=== PATIENT | female | born 1985 | race Two or more races ===

== ENCOUNTER 2021-04-09 11:30 | Inpatient (IN) ==
--- NOTE | 2021-04-09 12:07 | Emergency Department Note ---
Impression & Plan Metastatic breast cancer, , Acute shoulder pain, Anemia, Acute hyponatremia ED Provider Note NAME: GALI FLOWER AGE: 35 SEX: F : 1985 ARRIVES VIA: Walk-In INFORMANT: Patient ED PROVIDER(S): Alex Romeo DO CHIEF COMPLAINT: neck pain HPI: Patient is a 35-year-old female who was diagnosed with metastatic breast cancer roughly 2 weeks ago. She has been seen evaluated in the ER and discharged with oxycodone and Zofran for the pain. She has been having worsening pain. She was recently found to be about 8 weeks. She denies any vaginal bleeding or vaginal discharge. The neck pain has been getting worse. She discussed with her information technology internship oncologist who referred her in for admission as well as CTs of the chest and belly for staging. She is having worsening right-sided neck pain radiating into the right arm which is believed to be from metastatic disease She denies any focal weakness but notes the pain is getting worse. She does want to terminate this so she can proceed with chemotherapy and treatment. ROS: See above HPI for pertinent positives & negatives. A total of 10 systems reviewed and were otherwise negative. PAST MEDICAL HISTORY:See Below PAST SURGICAL HISTORY:See Below FAMILY HISTORY:See Below SOCIAL HISTORY:See Below HOME MEDICATIONS:See Below ALLERGIES:See Below VITALS:See Below PHYSICAL EXAMINATION: GENERAL: Sitting up in bed, alert, well appearing, well nourished, no distress, non-toxic EYE EXAM: normal conjunctiva. PERRL and EOM's grossly intact. OROPHARYNX: no exudate, no erythema, lips, buccal mucosa, and tongue normal and mucous membranes are moist NECK: supple, no nuchal rigidity, no adenopathy, non-tender LUNGS: Clear to auscultation. Normal chest wall mechanics HEART: no murmurs, S1 normal and S2 normal ABDOMEN: abdomen soft, non-tender, normo-active bowel sounds, no masses, no rebound or guarding. BACK: Back is symmetrical on inspection and there is no deformity, no midline tenderness, no CVA tenderness. UPPER EXTREMITIES: Flexion-extension of the shoulders elbows wrist grasp and abduction of digits intact 5 out of 5 bilaterally LOWER EXTREMITIES: No pitting edema. NEURO EXAM: Normal sensorium, cranial nerves II-XII grossly intact, normal speech, no gross weakness of arms, no gross weakness of legs. No drift. Finger to nose intact. Gross sensation intact. MEDICAL DECISION MAKING: Patient is an unfortunate 35-year-old female with metastatic breast cancer to the bones causing neck pain referred in by her information technology internship oncologist for admission, abarca scans for staging as well as MRIs of the complete spine with and without and for port placement. Patient is currently and they have elected to terminate this so they can proceed with chemotherapy as she has an aggressive form of metastatic breast cancer at 35. IV was established blood work was obtained. Labs show no significant leukocytosis. Mild anemia 10. BMP along with LFTs bilirubin and lipase is unremarkable. Covid was negative. Mild hyperglycemia at 66. Patient was discussed with hospitalist prior to the results of the CTs as she will need additional MRIs port placement and further work-up by hematology oncology. She was given IV morphine while in the ER. She was comfortable with this plan and is in agreement with terminating the . Did perform the CTs based on this and will defer to STAFF ASSISTANT. Triage Nursing notes reviewed. Limited review of prior medical records performed Vital Signs: reviewed and remarkable for no significant abnormalities Differential diagnosis: Cervical strain, fracture, cervical disc disease, lymphadenitis, meningitis, tumor, arterial dissection, thyroiditis, parotitis, mastoiditis, neurologic, cardiovascular, as well as other pathologies. ER treatment provided: See below Diagnostics interpreted by me: ECG: none Cardiac Monitoring: An order was placed for continuous cardiac monitoring. The monitor shows a rate of 80 with sinus rhythm. Laboratory studies: As stated above and show below. Imaging studies: CTs of the chest abdomen pelvis pending radiology report Consultation(s): Discussed with Dr. Han who called and head to give report Discussed with hospitalist for further evaluation Procedures: none Critical Care: None Past Med/Surg History Social History Smoking Status: Never smoker Feels Safe at Home: Yes Allergies Allergies Allergy/AdvReac Type Severity Reaction Status Date / Time No Known Allergies Allergy Unverified 03/31/21 15:43 Home Meds Home Medications Medication Instructions Recorded Confirmed vitamin-ferrous sulfate 1 tab PO DAILY 03/31/21 03/31/21 27 mg iron-folic acid 0.8 mg tablet Previous Rx's Medication Instructions Recorded oxycodone 5 mg tablet 5 mg PO Q6H PRN #16 tab 03/31/21 Results & Data (ED) Vital Signs Vital Signs - 24 hr 04/09/21 11:33 04/09/21 13:53 Temperature 36.6 C Temperature Source Temporal Artery Scan Pulse Rate 84 Respiratory Rate 16 Blood Pressure 125/80 Blood Pressure Mean 95 Pulse Oximetry 100 96 Sepsis Recent Fever Within 48 Hours No Sepsis New/Unexplained Change in Mental Status No Sepsis Action Taken by Nursing No Action Required Laboratory Data Result diagrams: 04/09/21 12:53 04/09/21 12:53 Lab Results 04/09/21 04/09/21 04/09/21 Range/Units 12:53 12:53 13:09 WBC 7.60 (4.8-10.8) K/uL RBC 3.66 L (4.2-5.4) M/uL Hgb 10.2 L (12.0-16.0) g/dL Hct 30.3 L (37-47) % MCV 82.8 (80-100) fL MCH 27.9 (25-34) pg MCHC 33.7 (32-36) g/dL RDW Std Deviation 47.7 H (36.4-46.3) fL RDW Coeff of Abigail 15.9 H (11.5-14.5) % Plt Count 220 (130-400) K/uL MPV 9.4 (7.4-10.4) fL Immature Gran % (Auto) 0.3 % Neut % (Auto) 74.6 % Lymph % (Auto) 17.2 % [place]ug[place] % (Auto) 7.0 % Eos % (Auto) 0.8 % Baso % (Auto) 0.1 % Neut # (Auto) 5.67 (1.4-6.5) K/uL Lymph # (Auto) 1.31 (1.2-3.4) K/uL [place]ug[place] # (Auto) 0.53 (0.11-0.59) K/uL Eos # (Auto) 0.06 (0-0.5) K/uL Baso # (Auto) 0.01 (0-0.2) K/uL Immature Gran # (Auto) 0.02 (0.00-0.02) K/uL Sodium 134 L (136-145) mmol/L Potassium 3.6 (3.5-5.1) mmol/L Chloride 99 (98-107) mmol/L Carbon Dioxide 26 (21-32) mmol/L Anion Gap 9 (3-11) BUN 10 (6-23) mg/dl Creatinine 0.48 L (0.6-1.2) mg/dl Est Cr Clr Drug Dosing 131.2 ml/min Est GFR ( Amer) 145.2 ml/min Est GFR (Non-Af Amer) 125.3 ml/min BUN/Creatinine Ratio 20.8 H (10-20) Glucose 66 L (70-99(Fasting)) mg/dl Calcium 9.2 (8.5-10.1) mg/dl Total Bilirubin 0.3 (0.2-1.0) mg/dl AST 27 (13-39) U/L ALT 9 (7-52) U/L Alkaline Phosphatase 59 (34-104) U/L Total Protein 7.0 (6.0-8.3) gm/dl Albumin 3.9 (3.4-5.0) gm/dl Globulin 3.1 (2.5-4.0) gm/dl Albumin/Globulin Ratio 1.3 (0.9-2) Lipase 24 (11-82) U/L SARS-CoV-2, RNA, NAAT NEGATIVE (NEGATIVE) Administered Medications Discontinued Medications Sodium Chloride (Nss 1000ml) 1,000 mls @ 999 mls/hr IV .Q1H1M ONE Stop: 04/09/21 13:17 Last Admin: 04/09/21 13:00 Dose: 999 mls/hr Documented by: [id number] Ondansetron HCl 8 mg/ Dextrose 54 mls @ 216 mls/hr IV ONE STA Stop: 04/09/21 12:51 Last Admin: 04/09/21 12:45 Dose: Not Given Documented by: [id number] Ioversol (Optiray 320 100ml) 95 ml IV ONCE ONE Stop: 04/09/21 14:28 Last Admin: 04/09/21 14:27 Dose: 95 ml Documented by: [id number] Morphine Sulfate (Morphine Sulfate 4 Mg/Ml 1 Ml Carp\Vial) 4 mg IV NOW STA Stop: 04/09/21 12:18 Last Admin: 04/09/21 13:00 Dose: 4 mg Documented by: [id number] Ondansetron HCl (Ondansetron Inj 2 Mg/Ml 2 Ml Vial) 4 mg IV NOW STA Stop: 04/09/21 12:43 Last Admin: 04/09/21 13:00 Dose: 4 mg Documented by: [id number] Ondansetron HCl (Ondansetron Inj 2 Mg/Ml 2 Ml Vial) Confirm Administered Dose 4 mg .ROUTE .STK-MED ONE Stop: 04/09/21 12:44 Last Admin: 04/09/21 12:45 Dose: Not Given Documented by: [id number] Discharge Plan Visit Data Chief Complaint: Neck Injury/Pain Stated Complaint: SEVERE NECK PAIN ED Provider: Alex Romeo ED Midlevel Provider: Mehnaz Vuong Discharge Problem: Metastatic breast cancer, , Acute shoulder pain, Anemia, Acute hyponatremia Forms Stand Alone Forms: [facility] ice Prescriptions Prescriptions: No Action Multivit with Iron 27 mg iron- 0.8 mg Tablet 1 tab PO DAILY RF: 0 oxycodone 5 mg tablet 5 mg PO Q6H PRN (Reason: pain (scale score 7-10)) Qty: 16 RF: 0 Referrals Referrals: Pavel Curtis MD [Primary Care Provider] -
[2021-04-09] MEDS ORDERED: MoRPHine SULFATE 4 MG/ML 1 ML CARP\\VIAL IV STA (12:17)
[2021-04-09] MEDS ORDERED: SODIUM CHLORIDE 0.9% 1000ML 1,000 ML IV ONE (12:17)
--- NOTE | 2021-04-09 12:23 | Emergency Department Note ---
ED Visit Note Patient seen today by myself and then discussed with Dr. Romeo who evaluated her separately. Please see his note for assessment and plan. Resident Activity Tracking Resident Involvement: Resident Care Provided Care Provided: Adult ED
[2021-04-09] MEDS ORDERED: ondansetron HCL 8 MG in DEXTROSE 5% 50 ML IV STA (12:37)
[2021-04-09] MEDS ORDERED: ONDANSETRON INJ 2 MG/ML 2 ML VIAL IV STA (12:42)
[2021-04-09] MEDS ORDERED: ONDANSETRON INJ 2 MG/ML 2 ML VIAL ONE (12:43)
[2021-04-09 13:03] LABS: Basophils # (auto) 0.01 K/uL (0-0.2); Basophils % (auto) 0.1 %; Eosinophils # (auto) 0.06 K/uL (0-0.5); Eosinophils % (auto) 0.8 %; Hematocrit (blood only) 30.3 % (37-47); Hemoglobin 10.2 g/dL (12.0-16.0); Immature Granulocytes # (auto) 0.02 K/uL (0.00-0.02); Immature Granulocytes % (auto) 0.3 %; Lymphocytes # (auto) 1.31 K/uL (1.2-3.4); Lymphocytes % (auto) 17.2 %; Mean Corpuscular Hemoglobin 27.9 pg (25-34); Mean Corpuscular Hgb Conc 33.7 g/dL (32-36); Mean Corpuscular Volume 82.8 fL (80-100); Mean Platelet Volume 9.4 fL (7.4-10.4); Monocytes # (auto) 0.53 K/uL (0.11-0.59); Neutrophils # (auto) 5.67 K/uL (1.4-6.5); Neutrophils % (auto) 74.6 %; Platelet Count 220 K/uL (130-400); RDW Coefficient of Variation 15.9 % (11.5-14.5); RDW Standard Deviation 47.7 fL (36.4-46.3); Red Blood Count 3.66 M/uL (4.2-5.4)
[2021-04-09 13:27] LABS: Albumin Globulin Ratio 1.3 (0.9-2); Albumin Level 3.9 gm/dl (3.4-5.0); BUN Creatinine Ratio 20.8 (10-20); Bilirubin,Total 0.3 mg/dl (0.2-1.0); Calcium 9.2 mg/dl (8.5-10.1); Creatinine Clr Calc Pharmacy 131.2 ml/min; Est GFR (African American) 145.2 ml/min; Est GFR (Non-African American) 125.3 ml/min; Globulin 3.1 gm/dl (2.5-4.0); Potassium 3.6 mmol/L (3.5-5.1)
--- NOTE | 2021-04-09 14:04 | History & Physical Report ---
Date of Service April 09, 2021 Assessment & Plan (1) Metastatic breast cancer: Plan: Mrs. Burris is a 35 yo woman with a history of recently diagnosed triple positive metastatic breast cancer (with lytic lesions to the spine), currently 8 weeks , who is being admitted for intractable back pain. - Patient has decided to pursue an elective for medical necessity in order to undergo aggressive cancer treatment - OBGYN consult placed -- order placed for Transvaginal US --> if is not viable, D&C will be done inhouse. If is viable, patient will likely need transferred to another facility for this to be electively done - echocardiogram ordered for "pre-chemo" baseline - general surgery consult placed ---> Dr. Alaniz plans to place left sided tomorrow morning (04/10/21). NPO after midnight in anticipation of procedure. - await Chest and Abdomen/Pelvic CT scan results to assess for additional metastatic disease - MRI of entire spine ordered to assess metastatic burden and for spinal cord compression - oncology consult placed - Patient was scheduled to have a CT guided sternal bone biopsy as an outpatient on 04/12/21 --> I spoke with Radiology (Dr. Peralta) to see if this could be done today, however due to full schedule, it cannot be done until Monday04/12/21. While I acknowledge the results are likely to show primary breast cancer, the bone biopsy is being requested by [facility] (2) Acute midline thoracic back pain: Plan: - likely due to known lytic lesions of thoracic spine, visualized on Chest CT from 03/24/21 - pain regimen ordered: Tylenol 1000mg IV q8 and Toradol 15mg q6H prn for mild pain. Morphine 2mg Iv q4h for moderate pain. Dilaudid 0.25mg a4h IV prn for severe pain. Lidoderm patch ordered. Titrate regimen as needed. - MRI of cervical, thoracic and lumbar spine ordered to assess extent of metastatic disease - *contrast will be used; patient has already decided she will be terminating her current * (3) : Plan: - patient has decided to undergo elective termination in order to pursue aggressive cancer treatment - Transvaginal US ordered --> if is not viable, D&C will be done inhouse. If is viable, patient will likely need transferred to another facility for this to be electively done (although it is medically necessary) due to institutional policies - OBGYN consult placed Diet: Regular, NPO after midnight Dispo: Med/Surg Dvt ppx: SCDs - hold Lovenox until after chemoport placement Code: Full History of Present Illness Primary Care Provider: Pavel Curtis MD Mrs. Burris is a 35 yo woman who was unfortunately diagnosed with metastatic breast cancer earlier this month who is being admitted to [facility] for pain control (due to metastatic lesions to the spine). Of note, she is (8 weeks gestation, dated via LMP). Her breast cancer and lytic bony lesions were first detected on a Chest CT scan done on 03/24/21 (ordered initially to rule out a pulmonary embolism in the setting of tachycardia and chest pain). The R breast lump was further evaluated via diagnostic mammography and an ultrasound guided fine needle aspiration on 03/29/21. Pathology returned showing ER/AL/Her-2-codi positive ductal carcinoma. Fine needle aspiration of a sentinel node also returned positive for metastatic disease. She met with an oncologist at [facility] (Dr. Perez) on 04/07/21 - at which time treatment options were reviewed. Her chemotherapy will be carried out locally at [facility] under the guidance of Dr. Han - whom she had her first office visit with on 04/08/21. Due to worsening of her back/neck pain, patient presented to the [facility] ED for IV pain medications. She stated that her and her have decided to terminate the in order to pursue aggressive medical treatment of her underlying malignancy. Meds: Takes no chronic medications Allergies: No known drug allergies Social Hx: No etoh or tobacco use. She was immunized against covid 19 (two shots) and contracted the virus on 03/22/21. She and are from [place]. She speaks Farsi primarily, in addition to some Latvian - her is present at bedside and translates most complex conversational details. Family Hx: No known cancers In the ED, her vitals were stable. WBC was normal, Hgb low at 10.2. CMP returned normal. Covid 19 negative. UA ordered. Chest and abdominal/pelvic cat scans were ordered. She was given 4mg IV morphine and 4mg IV zofran. Allergies Allergy/AdvReac Type Severity Reaction Status Date / Time No Known Allergies Allergy Unverified 03/31/21 15:43 Home Medications Medication Instructions Recorded Confirmed Type oxycodone 5 mg tablet 5 mg PO Q6H PRN #16 tab 03/31/21 Rx vitamin-ferrous sulfate 1 tab PO DAILY 03/31/21 03/31/21 History 27 mg iron-folic acid 0.8 mg tablet Past Med/Surg History Social History Smoking Status: Never smoker Hx Alcohol Use: No Hx Substance Use: No Preferred Language: Latvian Communication Ability: Effective Stenciling Machine Tender Required: No Beliefs That Will Affect Care: None Current Living Situation: Spouse Other Information That Helps Us Care for You: No Feels Safe at Home: Yes Safety Concerns: Feels Safe At This Time Assistive Devices: None Review of Systems Musculoskeletal: + back pain Physical Exam Constitutional: WD/WN, vitals as above cooperative and comfortable; no acute distress Eyes: + anicteric sclerae ENMT: external ear and nose normal, oropharynx normal Neck: trachea midline Respiratory: normal respiratory effort, lungs clear to auscultation no cough Cardiovascular: RRR, no murmur, no edema Heart Sounds: normal S1 and normal S2 Extremities: no pedal edema Gastrointestinal (Abdomen): normal bowel sounds, soft, nontender, no hepatosplenomegaly Musculoskeletal: Head/Neck/Chest: normocephalic and head atraumatic Spine: + thoracic spinal tenderness Skin: no rashes, warm and dry Neurologic: moves all extremities Psychiatric: A+Ox3, euthymic affect Results & Data Results & Data ([facility]) Vital Signs (Past 12 Hours) Vital Signs Temp Pulse Resp BP Pulse Ox 04/09/21 13:53 96 04/09/21 11:33 36.6 C 84 16 125/80 100 Supervising Physician Co-Signing Physician Notes Patient seen and examined independently of PGY-2 Dr. Elkins. Agree with history, exam findings, assessment and plan of care as outlined. In brief, Padmaja is a 35 year old female with newly diagnosed triple positive breast cancer with lytic lesions to the spine, currently 8weeks of gestation admitted for intractable neck pain + ?radicular symptoms. is at the bedside. Reports that she has had some right sided neck pain for weeks now, but the pain that radiates in to the arm and hand started today. No weakness or paresthesias. Tender of the midline of the cervical spine and upper trap on the right. 5/5 strength of biceps, triceps. Light touch is in tact in the distributions of C3- T1. Tender over the midline thoracic spine. 1. Neck pain ?radicular pain. MRI cervical spine. In the meantime, pain control with Tylenol, Toradol, morphine, dilaudid, lido patch. 2. Thoracic spine pain secondary to lytic lesions. Of note, also has lytic lesions to the pelvis and femur. MRI of thoracic and lumbar spine ordered to assess metastatic burden. 3. Breast cancer, mets to bone and likely liver. Plans for port placement in the AM. Baseline TTE pending. CT guided sternal bone marrow biopsy scheduled for Monday. Appreciate oncology recommendations. 4. . Plans for elective termination. Ultrasound ordered to d etermine if fetus is viable. Appreciate OB-APARTMENT ASSISTANT MANAGER assistance with this. Dispo: pain control. Resident Activity Tracking Resident Involvement: Resident Care Provided Care Provided: [facility] Medicine (1) Weeks of gestation: 8 weeks Qualified Code(s): Z3A.08 - 8 weeks gestation of
[2021-04-09] MEDS ORDERED: OPTIRAY 320 100ml IV ONE (14:27)
--- NOTE | 2021-04-09 14:41 | CT Scan Report ---
CT SCAN OF THE ABDOMEN AND PELVIS WITH IV CONTRAST CLINICAL HISTORY: Metastatic breast cancer. Generalized abdominal pain. COMPARISON STUDY: Chest CT dated 03/24/2021. TECHNIQUE: Following the IV administration of 95 cc of Optiray 320, CT scan of the abdomen and pelvi s is performed from the lung bases to the proximal femora. Images are reviewed in the axial, sagittal , and coronal planes. IV contrast was administered without complication. A dose lowering technique wa s utilized adhering to the principles of ALARA. FINDINGS: Lung bases: The heart is normal in size and without pericardial effusion. There is dependent atelecta sis. A 6 cm groundglass nodule at the right lung base seen on image #29 is new from previous and like ly inflammatory. Marked dermal thickening is noted in the right breast. Liver: The contrast-enhanced liver is normal in size, contour, and attenuation. There is no intrahepa tic biliary ductal dilatation. The hepatic veins and portal veins are patent. An 11 mm indeterminate hypodensity is seen in the subcapsular right lobe on image #78. Gallbladder: Unremarkable. Spleen: Normal in size and attenuation. Pancreas: Unremarkable. Adrenal glands: Unremarkable. Kidneys: The contrast enhanced kidneys are normal in size and without hydronephrosis. The kidneys enh ance symmetrically. There is a 7 mm nonobstructing left renal calculus. Abdominal vasculature: The abdominal aorta is normal in course and caliber. Bowel: There is rectosigmoid fecal retention and moderate constipation. No bowel obstruction is seen. The appendix is well-visualized and normal. Peritoneum: There is no intraperitoneal free air or abdominal ascites. Lymphadenopathy: None. Pelvic viscera: The bladder is distended and otherwise normal in appearance. The uterus is enlarged a nd heterogeneous noting an intrauterine gestation. No adnexal lesion is seen. An involuting follicle is noted in the right ovary. Trace free fluid is seen in the cul-de-sac. Skeletal structures: There is evidence of extensive/diffuse osteolytic metastatic disease. Lesions ar e seen throughout the spine and bony pelvis. There are small bilateral rib lesions, as well as tiny l esions in the proximal femora. A electronics parts sales representative lesion in the right sacral ala on image #256 measures 2.6 cm, and a lesion within the right aspect of L4 measures 2.6 cm. There is no CT evidence of epidu ral extension of tumor. There is minimal pathologic superior endplate compression fracture of L4. IMPRESSION: 1. No acute infectious or inflammatory findings are seen in the abdomen or pelvis. 2. There is evidence of diffuse osteolytic metastatic disease as detailed above noting a minimal path ologic superior endplate compression fracture of L4. 3. Rectosigmoid fecal retention and moderate constipation. 4. Significant dermal thickening is noted in the right breast. 5. Left-sided nephrolithiasis. 6. The uterus is enlarged and heterogeneous noting an intrauterine gestation. 7. Trace nonspecific free fluid is seen in the cul-de-sac. 8. An 11 mm indeterminant hypodensity in the posterior right lobe of the liver likely represents a he mangioma but is incompletely characterized. 9. Additional findings as above. ACT 112: Negative or not required by law. Electronically signed by: Leopoldo Regalado M.D. 04/09/2021 2:40 PM
--- NOTE | 2021-04-09 14:47 | CT Scan Report ---
CT OF THE CHEST WITH IV CONTRAST CLINICAL HISTORY: worsening pain metastatic breast cancer COMPARISON STUDY: Chest CT March 24, 2021. TECHNIQUE: Following IV administration of 95 mL of Optiray, helical axial images of the chest were o btained. Sagittal and coronal reconstructions were viewed as well as maximal intensity projections o n an independent 3-D workstation. Automated exposure control was utilized for the study. A dose low ering technique was utilized adhering to the principles of ALARA. CT DOSE: 464.83 mGy.cm FINDINGS: Note is again made of asymmetric right breast skin thickening. There is a 2.2 cm irregular enhancing mass which contains a biopsy clip within the upper inner quadrant of the right breast. Sev eral prominent right axillary lymph nodes are noted. A biopsy clip within right axilla is present. Si ze of the heart is normal. There is no pericardial effusion. No enlarged hilar or mediastinal lymph n odes are present. Central airways are patent. There is no consolidation to suggest pneumonia. No pneu mothorax or pleural effusion is present. A 5 mm ground glass right lower lobe nodule on image 228 of [address] of March 24, 2021. Numerous lytic skeletal metastases are again noted. These bocanegra ve slightly progressed since CT of March 24, 2021. A T8 pathologic fracture is again noted. Althoug h suboptimally assessed by CT, there is suggestion of slight epidural extension at the T10 level. The re is no evidence for severe central canal stenosis. Mild to moderate multilevel neural foraminal romeo nosis due to metastases is present but this is also suboptimally assessed by CT. Abdomen and pelvis w ill be reported separately. An indeterminate 1 cm segment 7 hepatic lesion is present. IMPRESSION: 1. Extensive skeletal metastatic disease with slight progression since CT of March 24, 2021. Redemo nstration of a T8 pathologic fracture and slight epidural extension at the T10 level. No severe centr al canal stenosis by CT. Mild to moderate multilevel neural foraminal stenosis due to skeletal lesion s. 2. Right breast mass with asymmetric right breast skin thickening consistent with primary malignancy. 3. New 5 mm groundglass right lower lobe nodule and a 1 cm right hepatic lobe lesion. These are indet erminate. ACT 112: Negative or not required by law. Electronically signed by: Kurtis Peralta M.D. 04/09/2021 2:46 PM
[2021-04-09] MEDS ORDERED: MoRPHine SULFATE 2 MG/ML CARP IV STA (15:06)
[2021-04-09] MEDS ORDERED: MoRPHine SULFATE 4 MG/ML 1 ML CARP\\VIAL ONE (15:07)
[2021-04-09] MEDS ORDERED: ACETAMINOPHEN 1,000 MG/100 ML VIAL IV PRN (15:57)
[2021-04-09] MEDS ORDERED: ONDANSETRON INJ 2 MG/ML 2 ML VIAL IV PRN (15:57)
[2021-04-09] MEDS ORDERED: MELATONIN 3 MG TAB PO PRN (15:57)
--- NOTE | 2021-04-09 16:14 | XCELERA ---
[id number]
--- NOTE | 2021-04-09 16:35 | Surgery Consultation ---
Date of Consultation April 09, 2021 Assessment & Plan (1) Metastatic breast cancer: Mrs. Burris is a 35 yo woman who was unfortunately diagnosed with metastatic breast cancer earlier this month who is being admitted to [facility] for pain control (due to metastatic lesions to the spine). Of note, she is (8 weeks gestation, dated via LMP). Her breast cancer and lytic bony lesions were first detected on a Chest CT scan done on 03/24/21 (ordered initially to rule out a pulmonary embolism in the setting of tachycardia and chest pain). The R breast lump was further evaluated via diagnostic mammography and an ultrasound guided fine needle aspiration on 03/29/21. Pathology returned showing ER/CT/Her-2-codi positive ductal carcinoma. Fine needle aspiration of a sentinel node also returned positive for metastatic disease. She met with an oncologist at [facility] (Dr. Perez) on 04/07/21 - at which time treatment options were reviewed. Her chemotherapy will be carried out locally at [facility] under the guidance of Dr. Han - whom she had her first office visit with on 04/08/21. Due to worsening of her back/neck pain, patient presented to the [facility] ED for IV pain medications. She stated that her and her have decided to terminate the in order to pursue aggressive medical treatment of her underlying malignancy. plan: pt will have port insertion on sedation + local anesthesia tomorrow, D/W benefits, risks and alternatives of the surgery, the risks - infection, bleeding, injury other organs, blood clot, dysfunction catheter, pt and her understood, they agree with the surgery, pt signed informed consent, I answered all questions, NPO after MN, History of Present Illness Reason for Consultation: port insertion Requesting Physician: Allie Cardenas DO Attending Physician: Allie Cardenas DO History of Present Illness History of Present Illness Primary Care Provider: Pavel Curtis MD CC: need port insertion Mrs. Burris is a 35 yo woman who was unfortunately diagnosed with metastatic breast cancer earlier this month who is being admitted to [facility] for pain control (due to metastatic lesions to the spine). Of note, she is (8 weeks gestation, dated via LMP). Her breast cancer and lytic bony lesions were first detected on a Chest CT scan done on 03/24/21 (ordered initially to rule out a pulmonary embolism in the setting of tachycardia and chest pain). The R breast lump was further evaluated via diagnostic mammography and an ultrasound guided fine needle aspiration on 03/29/21. Pathology returned showing ER/CT/Her-2-codi positive ductal carcinoma. Fine needle aspiration of a sentinel node also returned positive for metastatic disease. She met with an oncologist at [facility] (Dr. Perez) on 04/07/21 - at which time treatment options were reviewed. Her chemotherapy will be carried out locally at [facility] under the guidance of Dr. Han - whom she had her first office visit with on 04/08/21. Due to worsening of her back/neck pain, patient presented to the [facility] ED for IV pain medications. She stated that her and her have decided to terminate the in order to pursue aggressive medical treatment of her underlying malignancy. Social Hx: No etoh or tobacco use. She was immunized against covid 19 (two shots) and contracted the virus on 03/22/21. She and are from [place]. She speaks Farsi primarily, in addition to some Cymro - her is present at bedside and translates most complex conversational details. Family Hx: No known cancers In the ED, her vitals were stable. WBC was normal, Hgb low at 10.2. CMP returned normal. Covid 19 negative. UA ordered. Chest and abdominal/pelvic cat scans were ordered. She was given 4mg IV morphine and 4mg IV zofran. I ( Jose Luis Alaniz MD ) got a call for port insertion for pt chemotherapy her metastatic breast cancer, I reviewed pt's H/P, labs and CT scan with pt and her , Allergies Allergy/AdvReac Type Severity Reaction Status Date / Time No Known Allergies Allergy Unverified 03/31/21 15:43 Home Medications Medication Instructions Recorded Confirmed Type oxycodone 5 mg tablet 5 mg PO Q6H PRN #16 tab 03/31/21 Rx vitamin-ferrous sulfate 1 tab PO DAILY 03/31/21 2 History 27 mg iron-folic acid 0.8 mg tablet Past Med/Surg History Social History Smoking Status: Never smoker Feels Safe at Home: Yes Review of Systems Musculoskeletal: + back pain Allergies Allergy/AdvReac Type Severity Reaction Status Date / Time No Known Allergies Allergy Unverified 03/31/21 15:43 Home Medications Medication Instructions Recorded Confirmed Type oxycodone 5 mg tablet 5 mg PO Q6H PRN #16 tab 03/31/21 Rx vitamin-ferrous sulfate 1 tab PO DAILY 03/31/21 03/31/21 History 27 mg iron-folic acid 0.8 mg tablet Patient History Social History Smoking Status: Never smoker Feels Safe at Home: Yes Physical Exam Constitutional: WD/WN, vitals as above Eyes: PERRL, conjunctivae normal, anicteric sclerae Neck: trachea midline, no thyromegaly Respiratory: normal respiratory effort, lungs clear to auscultation Cardiovascular: RRR, no murmur, no edema Gastrointestinal (Abdomen): soft, NT, Nd BS + Musculoskeletal: Spine: + cervical spinal tenderness Neurologic: patellar DTR's 2+ bilat, sensation intact Psychiatric: A+Ox3, euthymic affect Results & Data ([facility]) Vital Signs (Past 12 Hours) Vital Signs Temp Pulse Resp BP Pulse Ox 04/09/21 13:53 96 04/09/21 11:33 36.6 C 84 16 125/80 100 Laboratory Results History of Present Illness Primary Care Provider: Pavel Curtis MD Mrs. Burris is a 35 yo woman who was unfortunately diagnosed with metastatic breast cancer earlier this month who is being admitted to [facility] for pain control (due to metastatic lesions to the spine). Of note, she is (8 weeks gestation, dated via LMP). Her breast cancer and lytic bony lesions were first detected on a Chest CT scan done on 03/24/21 (ordered initially to rule out a pulmonary embolism in the setting of tachycardia and chest pain). The R breast lump was further evaluated via diagnostic mammography and an ultrasound guided fine needle aspiration on 03/29/21. Pathology returned showing ER/CT/Her-2-codi positive ductal carcinoma. Fine needle aspiration of a sentinel node also returned positive for metastatic disease. She met with an oncologist at [facility] (Dr. Perez) on 04/07/21 - at which time treatment options were reviewed. Her chemotherapy will be carried out locally at [facility] under the guidance of Dr. Han - whom she had her first office visit with on 04/08/21. Due to worsening of her back/neck pain, patient presented to the [facility] ED for IV pain medications. She stated that her and her have decided to terminate the in order to pursue aggressive medical treatment of her underlying malignancy. Social Hx: No etoh or tobacco use. She was immunized against covid 19 (two shots) and contracted the virus on 03/22/21. She and are from [place]. She speaks Farsi primarily, in addition to some Cymro - her is present at bedside and translates most complex conversational details. Family Hx: No known cancers In the ED, her vitals were stable. WBC was normal, Hgb low at 10.2. CMP returned normal. Covid 19 negative. UA ordered. Chest and abdominal/pelvic cat scans were ordered. She was given 4mg IV morphine and 4mg IV zofran.Allergies Allergy/AdvReac Type Severity Reaction Status Date / Time No Known Allergies Allergy Unverified 03/31/21 15:43 Home Medications Medication Instructions Recorded Confirmed Type oxycodone 5 mg tablet 5 mg PO Q6H PRN #16 tab 03/31/21 Rx vitamin-ferrous sulfate 1 tab PO DAILY 03/31/21 2 History 27 mg iron-folic acid 0.8 mg tablet Past Med/Surg History Social History Smoking Status: Never smoker Feels Safe at Home: Yes Review of Systems Musculoskeletal: + back pain Diagnostic Findings CT SCAN OF THE ABDOMEN AND PELVIS WITH IV CONTRAST CLINICAL HISTORY: Metastatic breast cancer. Generalized abdominal pain. COMPARISON STUDY: Chest CT dated 03/24/2021. TECHNIQUE: Following the IV administration of 95 cc of Optiray 320, CT scan of the abdomen and pelvis is performed from the lung bases to the proximal femora. Images are reviewed in the axial, sagittal, and coronal planes. IV contrast was administered without complication. A dose lowering technique was utilized adhering to the principles of ALARA. FINDINGS: Lung bases: The heart is normal in size and without pericardial effusion. There is dependent atelectasis. A 6 cm groundglass nodule at the right lung base seen on image #29 is new from previous and likely inflammatory. Marked dermal thickening is noted in the right breast. Liver: The contrast-enhanced liver is normal in size, contour, and attenuation. There is no intrahepatic biliary ductal dilatation. The hepatic veins and portal veins are patent. An 11 mm indeterminate hypodensity is seen in the subcapsular right lobe on image #78. Gallbladder: Unremarkable. Spleen: Normal in size and attenuation. Pancreas: Unremarkable. Adrenal glands: Unremarkable. Kidneys: The contrast enhanced kidneys are normal in size and without hydronephrosis. The kidneys enhance symmetrically. There is a 7 mm nonobstructing left renal calculus. Abdominal vasculature: The abdominal aorta is normal in course and caliber. Bowel: There is rectosigmoid fecal retention and moderate constipation. No bowel obstruction is seen. The appendix is well-visualized and normal. Peritoneum: There is no intraperitoneal free air or abdominal ascites. Lymphadenopathy: None. Pelvic viscera: The bladder is distended and otherwise normal in appearance. The uterus is enlarged and heterogeneous noting an intrauterine gestation. No adnexal lesion is seen. An involuting follicle is noted in the right ovary. Trace free fluid is seen in the cul-de-sac. Skeletal structures: There is evidence of extensive/diffuse osteolytic metastatic disease. Lesions are seen throughout the spine and bony pelvis. There are small bilateral rib lesions, as well as tiny lesions in the proximal femora. A insurance service representative lesion in the right sacral ala on image #256 measures 2.6 cm, and a lesion within the right aspect of L4 measures 2.6 cm. There is no CT evidence of epidural extension of tumor. There is minimal pathologic superior endplate compression fracture of L4. IMPRESSION: 1. No acute infectious or inflammatory findings are seen in the abdomen or pelvis. 2. There is evidence of diffuse osteolytic metastatic disease as detailed above noting a minimal pathologic superior endplate compression fracture of L4. 3. Rectosigmoid fecal retention and moderate constipation. 4. Significant dermal thickening is noted in the right breast. 5. Left-sided nephrolithiasis.
[2021-04-09] MEDS: MoRPHine SULFATE 2 MG/ML CARP IV PRN ×3 (17:17→20:57)
[2021-04-09] MEDS: LIDOCAINE 5% 1 PATCH TD SCH (17:18)
[2021-04-09] MEDS: KETOROLAC TROMETHAMINE 15 MG/ML VIAL IV PRN (17:18)
[2021-04-09] MEDS: SODIUM CHLORIDE 0.9% 1000ML 1,000 ML IV SCH (17:18)
[2021-04-09] MEDS: HYDROmorphone INJ 0.5 MG/0.5 ML SYR IV PRN (20:27)
[2021-04-09] MEDS: CYCLOBENZAPRINE HCL 10 MG TAB PO SCH (20:27)
[2021-04-09 21:44] LABS: Appearance Urine Cloudy (Clear); Bacteria Urine Automated 1+ (Negative); Bilirubin Urine Negative (Negative); Blood Urine Negative (Negative); Color Urine Yellow; Epithelial Cell Urine Auto >30 /lpf (0-5); Glucose Urine UA Negative (Negative); Ketones Urine Negative (Negative); Leukocyte Esterase Urine Negative (Negative); Nitrite Urine Negative (Negative); Protein Urine Negative (Negative); RBC Urine Automated 0-4 /hpf (0-4); Specific Gravity Urine > 1.045 (1.000-1.030); Urobilinogen Urine Negative (Negative)
--- NOTE | 2021-04-09 22:54 | Ultrasound Report ---
US OB transvaginal CLINICAL HISTORY: breast CA with mets - viability/dating Technique: Real-time sonographic images of the pelvic contents were obtained with transabdominal and transvaginal technique. COMPARISON: None available at the time of this dictation. Findings: A single intrauterine is identified. Yolk sac measures 0.35 cm, crown rump length measures 1.91 cm corresponding to estimated gestational age of 8 weeks 3 days. heart rate measures 172 bpm. There is a hypoechoic area adjacent to the gestational sac measuring 2.1 x 1.1 x 1.8 cm, compatible with subchorionic hemorrhage which is small in size. Nabothian cysts are seen. The right ovary measures 2.2 x 5.0 x 1.4 cm. The left ovary measures 2.3 x 1.3 x 1.5 cm. There is a l ikely corpus luteum on the right. Impression: Single live intrauterine . Based on crown-rump length, the estimated sonographi c gestational age is 8 weeks 3 days. Small subchorionic hemorrhage is noted. ACT 112: Negative or not required by law. Electronically signed by: Epi Demarco M.D. 04/09/2021 10:53 PM
[2021-04-10] MEDS: SODIUM CHLORIDE 0.9% 1000ML 1,000 ML IV SCH ×2 (05:15→18:16)
[2021-04-10] MEDS: MoRPHine SULFATE 2 MG/ML CARP IV PRN (05:18)
[2021-04-10 06:10] LABS: Basophils # (auto) 0.01 K/uL (0-0.2); Basophils % (auto) 0.2 %; Eosinophils % (auto) 1.6 %; Hemoglobin 9.7 g/dL (12.0-16.0); Immature Granulocytes # (auto) 0.03 K/uL (0.00-0.02); Immature Granulocytes % (auto) 0.5 %; Lymphocytes # (auto) 1.42 K/uL (1.2-3.4); Lymphocytes % (auto) 22.8 %; Mean Corpuscular Hemoglobin 27.1 pg (25-34); Mean Corpuscular Hgb Conc 32.3 g/dL (32-36); Mean Corpuscular Volume 83.8 fL (80-100); Mean Platelet Volume 9.5 fL (7.4-10.4); Monocytes # (auto) 0.63 K/uL (0.11-0.59); Monocytes % (auto) 10.1 %; Neutrophils # (auto) 4.05 K/uL (1.4-6.5); Neutrophils % (auto) 64.8 %; Platelet Count 243 K/uL (130-400); RDW Coefficient of Variation 16.2 % (11.5-14.5); RDW Standard Deviation 49.4 fL (36.4-46.3); Red Blood Count 3.58 M/uL (4.2-5.4); White Blood Count 6.24 K/uL (4.8-10.8)
[2021-04-10] MEDS: HYDROmorphone INJ 0.5 MG/0.5 ML SYR IV PRN ×2 (06:29→16:29)
[2021-04-10 06:39] LABS: Anion Gap 5 (3-11); BUN Creatinine Ratio 24.4 (10-20); Blood Urea Nitrogen 10 mg/dl (6-23); Calcium 9.4 mg/dl (8.5-10.1); Carbon Dioxide 27 mmol/L (21-32); Chloride 104 mmol/L (98-107); Creatinine Clr Calc Pharmacy 153.6 ml/min; Est GFR (African American) > 150.0 ml/min; Glucose 70 mg/dl (70-99(Fasting)); Potassium 4.1 mmol/L (3.5-5.1); Sodium 136 mmol/L (136-145)
--- NOTE | 2021-04-10 06:46 | Hospitalist Progress Note ---
Date of Service April 10, 2021 Assessment & Plan (1) Metastatic breast cancer: Plan: Patient is a 35 year old female at 8 weeks with history of recently diagnosed triple positive metastatic breast cancer with lytic lesions to spine and hip admitted for intractable back and neck pain. Since admission patients patient has migrated primarily to her lumbar spine in addition to her L hip. Despite a multitude of pain management medications she has had difficulty finding comfort regardless of position. Metastatic Breast Cancer with Lytic Lesions -Patient has decided to pursue elective for medical necessity in order to undergo aggressive cancer treatment. -She at this time understands that many of the treatment options in regards to both control of her pain, treatment of her cancer, staging of her disease may be harmful to her unborn child and accepts the risks involved as she is planning on elective . -Pain management has been difficult with PRN medications of Tylenol, Toradol, Morphine, Dilaudid, and Lidocaine patches -Trialed Fentanyl patch 12mcg today for roughly 3 hours at which point patient noted her hip pain was too excruciating and was hopeful for something else -Started on Dilaudid PAID SEARCH MANAGER at 0.5mg/hr in addition to 0.25mg pushes q15min -- Per nursing patient has finally noted some relief of her pain -Morphine and Dilaudid pushes held at this time due to PAID SEARCH MANAGER -Unfortunately patient has been unable have the MRI of her Cervical, Thoracic, and Lumbar spine -If patient continues to be unable to tolerate MRI, would consider CT of the cervical spine to ensure no cord compression -Pre-chemotherapy Echocardiogram ordered with EF 60-65% -Case has been discussed extensively with OBGYN and Oncology -Oncology following, recommending at this time palliative radiation therapy (current plan for 04/12/21) to help with pain of the hip -Discussed chemotherapy which at this time would likely be deferred until after the termination of the . -Current plans for bone biopsy on 04/12/21 -Transvaginal US notable for single live intrauterine estimated gestational age 8 weeks 3 days in addition to subchorionic hemorrhage. -Patient noting that she would like to pursue elective . -She would want to pursue therapeutic treatment for both her cancer and her pain control, knowing any teratogenic effects it would have on the fetus at this time as she is planning on elective termination. -OBGYN Dr. Yanez at [facility] has been following patients case as well who feels that as this is a medically necessary situation, would be able to assist the pa tient in regards to elective . She plans on reaching out to the patient directly in regards to possible phone/telemedicine appointment as she would have difficulty with transport to [facility] with her pain as is. -If able to manage patient's pain adequately on an outpatient regiment, patient would likely benefit from evaluation there for termination of the . -At this time our OBGYN provider has discussed this case with several of our hospital administrators and at this time we would likely be unable to provide the service of termination of the at our facility. In the event that the patient has a miscarriage or threatened , our OBGYN team would be able to reevaluate and treat as indicated at that time. Diet: Regular Dispo: Med/Surg Dvt ppx: SCDs - Resume Lovenox in the AM Code: Full (2) Acute midline thoracic back pain: (3) : Admission and Anticipated Discharge Date Admission Date: April 09, 2021 Supervising Physician Co-Signing Physician Notes Patient seen and examined with PGY-3 Dr. Granados. Agree with history, exam findings, assessment and plan of care as outlined. In brief, Padmaja is a 35 year old female with newly diagnosed triple positive breast cancer with lytic lesions to the spine, currently 8weeks of gestation admitted for intractable neck pain + ?radicular symptoms. is at the bedside. Had port placed with morning with Dr. Alaniz. Patient has spoke with both Dr. Carter and Dr. Fernandes. There are significant institutional barriers to having termination done here. PCP, Dr. Curtis, has contacted Dr. Yanez at [place] to discuss case and assist with care. Continues to have pain in the spine (thoracic and lower back) with movement. Patient and are aware that mediations like Toradol can be teratogenic and other medications like the opioids are be harmful to a fetus. In particular, discussed possibility of fentanyl patch for better overall pain control. Unfortunately, attempted fentanyl patch for several hours with PRN dilaudid and pain was not at all controlled. Long discussion with patient and her . They are willing to try a PAID SEARCH MANAGER to better pain control. They understand the risks for PAID SEARCH MANAGER including respiratory depression and harm to fetus. They are understandably concerned regarding the severe pain Padmaja is experiencing even with minimal movement. They are also concerned about the inability of our facility to provide termination as they feel this is delaying her ability to start chemotherapy and radiation. 1. Bony pain secondary to bony mets. Attempted trial of fentanyl without significant improvement. After a long discuss regarding risks and benefits of dilaudid PAID SEARCH MANAGER, they are agreeable to start dialudid PAID SEARCH MANAGER. They are aware fo the risks of respiratory depression as well as monitoring parameters for the PAID SEARCH MANAGER. Augment with Tylenol, Toradol. Discussed possibility of radiation to bony mets with oncology, Dr. Han. She has already reached out to Dr. Coats of radiation oncology; set up for radiation oncology on Monday to help with pain. Discussed with patient and that at this time, chemo would do little to help with pain and may put her at increased risk for complication or a difficult recovery following any planned procedure for termination. 2. Breast cancer, mets to bone and likely liver. Port placed today by Dr. Alaniz. Baseline TTE completed. CT guided sternal bone marrow biopsy scheduled for Monday. Appears that her cancer is quite aggressive given that there was an increasing in bony lytic lesions on this most recent chest CT when compared to the initial CT done 2 weeks prior. Appreciate continued oncology recommendations. 3. . Plans for termination in order to focus on breast cancer treatment. Appreciate Dr. Carter and Dr. Vicente communication with the patient and recommendations for next steps. Spoke with Dr. Fernandes. There are plans for a meeting of leadership at our institution to discuss the patients case. Patients PCP has also been in touch with Dr. Yanez in [place]. However, logistics will be quite challenging and do not feel that it is in the patients best interest to transfer to another facility 2 hours away with the amount of pain she is experiencing. Transfer with a PAID SEARCH MANAGER is less than ideal. However, if she experiences bleeding/ demise prior to Monday, will discuss with our OB- CONSTRUCTION TECHNICIAN colleagues for possible intervention here. Dispo: pain control. Subjective Patient evaluated multiple times throughout the day for discussion of her pain. Patient notes that despite the therapies she has been receiving for pain control, her pain continues to remain intolerable with any sense of movement. She notes she has been unable to have the MRI's completed due to the inability to stay in the machine or laying down in a certain position for much time without extreme pain. She denies any fever, chills, SOB. She notes fortunately that her neck pain has improved, but both her lumbar and her L hip pain are excruciating. She states it feels as though there is a "monster" that comes out everytime she goes to move. Review of Systems Review of Systems: All systems reviewed & are unremarkable except as noted in Subjective Physical Exam Constitutional: + acute distress Respiratory: normal respiratory effort, lungs clear to auscultation Cardiovascular: RRR, no murmur, no edema Musculoskeletal: Head/Neck/Chest: normocephalic and head atraumatic Significant tenderness to palpation of the lumbar spine, low back paraspinals, and the lateral iliac crests b/l, worse on the L than R Results & Data Results & Data ([facility]) Vital Signs (Past 12 Hours) Vital Signs Temp Pulse Resp BP Pulse Ox 04/09/21 22:00 36.6 C 76 18 100/66 98 Resident Activity Tracking Resident Involvement: Resident Care Provided Care Provided: Adult [facility] Medicine (1) Weeks of gestation: 8 weeks Qualified Code(s): Z3A.08 - 8 weeks gestation of
--- NOTE | 2021-04-10 07:11 | Anesthesiology Consultation ---
Date of Service April 10, 2021 Assessment & Plan (1) Encounter for pre-operative examination: Chart Review Chart Review: Acceptable Risk for Surgery and Patient NOT seen in Pre Admission Testing Consults Requested none History Surgery Operation Date: 04/10/21 07:30 Proposed Procedures p Placement of Left A-Port Catheter - Jose Luis Alaniz MD Height/Weight Height: 5 ft 7.2 in Weight: 51.8 kg Allergies Allergy/AdvReac Type Severity Reaction Status Date / Time No Known Allergies Allergy Unverified 03/31/21 15:43 Medications Home Medications Medication Instructions Recorded Confirmed Last Taken oxycodone 5 mg tablet 5 mg PO Q6H PRN #16 tab 03/31/21 Unknown vitamin-ferrous sulfate 1 tab PO DAILY 03/31/21 03/31/21 03/31/21 27 mg iron-folic acid 0.8 mg tablet Active Medications Generic Name Dose Route Start Last Admin Trade Name Freq PRN Reason Stop Dose Admin Cyclobenzaprine HCl 10 mg 04/09/21 21:00 04/09/21 20:27 Cyclobenzaprine Hcl 10 Mg Tab PO 05/09/21 20:59 10 mg TID KRISTY Administration Hydromorphone HCl 0.25 mg 04/09/21 15:57 04/10/21 06:29 Hydromorphone Inj 0.5 Mg/0.5 Ml Syr IV 04/23/21 15:56 0.25 mg Q6H PRN Administration Severe Pain (7-10) Sodium Chloride 1,000 mls @ 95 mls/hr 04/09/21 16:30 04/10/21 06:30 Nss 1000ml IV 04/11/21 00:04 0 mls/hr .[id number] KRISTY Infusion Ketorolac Tromethamine 15 mg 04/09/21 15:57 04/09/21 17:18 Ketorolac Tromethamine 15 Mg/Ml Vial IV 04/14/21 15:56 15 mg Q6H PRN Administration Mild Pain Lidocaine 1 patch 04/09/21 16:30 04/09/21 17:18 Lidocaine 5% 1 Patch TD 05/09/21 16:29 1 patch QAM KRISTY Administration Miscellaneous 1 ea 04/09/21 23:00 04/09/21 22:00 Remove Lidoderm Patch N/A 05/09/21 22:59 1 ea DAILY@2100 KRISTY Administration Morphine Sulfate 2 mg 04/09/21 15:57 04/10/21 05:18 Morphine Sulfate 2 Mg/Ml Carp IV 04/23/21 15:56 2 mg Q30M PRN Administration Moderate Pain Social History Smoking Status: Never smoker Hx Alcohol Use: No Hx Substance Use: No Physical Exam Vital Signs Last Vital Signs Temp 36.6 C 04/09/21 22:00 Pulse 76 04/09/21 22:00 Resp 18 04/09/21 22:00 BP 100/66 04/09/21 22:00 Pulse Ox 98 04/09/21 22:00 Testing Laboratory Results 04/10/21 05:36 04/10/21 05:36 Urine Color Yellow 04/09/21 21:15 Urine Appearance Cloudy (Clear) A 04/09/21 21:15 Urine pH 7.0 (4.5-7.5) 04/09/21 21:15 Ur Specific [place] > 1.045 (1.000-1.030) H 04/09/21 21:15 Urine Protein Negative (Negative) 04/09/21 21:15 Urine Glucose (UA) Negative (Negative) 04/09/21 21:15 Urine Ketones Negative (Negative) 04/09/21 21:15 Urine Nitrite Negative (Negative) 04/09/21 21:15 Ur Leukocyte Esterase Negative (Negative) 04/09/21 21:15 Urine WBC (Auto) 1-5 /hpf (0-5) 04/09/21 21:15 Urine RBC (Auto) 0-4 /hpf (0-4) 04/09/21 21:15 U Hyaline Cast (Auto) 1-5 /lpf (0-5) 04/09/21 21:15 U Epithel Cells (Auto) >30 /lpf (0-5) H 04/09/21 21:15 Urine Bacteria (Auto) 1+ (Negative) H 04/09/21 21:15 Blood Type B Positive 04/09/21 15:43 Antibody Screen NEGATIVE 04/09/21 15:43
[2021-04-10] MEDS ORDERED: HEPARIN 100 UNIT/ML 5ML FLUSH ONE ×2 (07:24→07:28)
[2021-04-10] MEDS ORDERED: LIDOCAINE 1% LOCAL 20 ML VIAL ONE (07:24)
[2021-04-10] MEDS ORDERED: SODIUM CHLORIDE 0.9% INJ 10 ML VIAL ONE (07:24)
[2021-04-10] MEDS ORDERED: BUPIVACAINE 0.5 % 5 MG/1 ML MPF 30ML VIAL ONE (07:24)
[2021-04-10] MEDS ORDERED: BACITRACIN OINT 15 GM TUBE ONE (07:24)
[2021-04-10] MEDS ORDERED: fentaNYL citrate 100 MCG/2 ML VIAL ONE (07:27)
[2021-04-10] MEDS ORDERED: PROPOFOL IV EMULSION 10 MG/ML 20 ML VIAL IV ONE (07:27)
[2021-04-10] MEDS ORDERED: LIDOCAINE 2% 2 ML VIAL/AMP(20MG/ML) INFIL ONE (07:27)
[2021-04-10] MEDS ORDERED: MIDAZOLAM HCL 1 MG/ML 2ML VIAL ONE (07:27)
[2021-04-10] MEDS ORDERED: ceFAZolin 2000MG 2,000 MG/15 ML SYR IV ONE (07:54)
--- NOTE | 2021-04-10 07:54 | History & Physical Bridge Note ---
Date of Service April 10, 2021 History & Physical Bridge Note I have examined the patient, reviewed the History & Physical and in the interval since the performance of the History & Physical I have noted the following changes of clinical significance: no changes noted Supervising Physician Co-Signing Physician Notes Patient seen and examined independently of PGY-2 Dr. Elkins. Agree with history, exam findings, assessment and plan of care as outlined. In brief, Padmaja is a 35 year old female with newly diagnosed triple positive breast cancer with lytic lesions to the spine, currently 8weeks of gestation admitted for intractable neck pain + ?radicular symptoms. is at the bedside. Reports that she has had some right sided neck pain for weeks now, but the pain that radiates in to the arm and hand started today. No weakness or paresthesias. Tender of the midline of the cervical spine and upper trap on the right. 5/5 strength of biceps, triceps. Light touch is in tact in the distributions of C3- T1. Tender over the midline thoracic spine. 1. Neck pain ?radicular pain. MRI cervical spine. In the meantime, pain control with Tylenol, Toradol, morphine, dilaudid, lido patch. 2. Thoracic spine pain secondary to lytic lesions. Of note, also has lytic lesions to the pelvis and femur. MRI of thoracic and lumbar spine ordered to assess metastatic burden. 3. Breast cancer, mets to bone and likely liver. Plans for port placement in the AM. Baseline TTE pending. CT guided sternal bone marrow biopsy scheduled for Monday. Appreciate oncology recommendations. 4. . Plans for elective termination. Ultrasound ordered to determine if fetus is viable. Appreciate OB-CIAIO COUNTER MOLDER assistance with this. Dispo: pain control.
[2021-04-10] MEDS ORDERED: ceFAZolin 2,000 MG/15 ML IV PUSH IV ONE (08:01)
--- NOTE | 2021-04-10 08:11 | OB/GYN Consultation ---
Date of Consultation April 10, 2021 History of Present Illness Reason for Consultation: First trimester and metastatic breast cancer diagnosis. Attending Physician: Allie Cardenas DO History of Present Illness Patient is a 35-year-old G1, P0 white female with a last normal menstrual period of 02/12/2021 who has recently been diagnosed with metastatic breast cancer. She has lytic lesions in her spine which are causing intractable pain. Prior to January her periods have been regular and monthly but in the past they have been irregular and infrequent because of a history of PCOS. She has no history of abnormal Pap smears but her last Pap smear was done 5 years ago. She has no other significant MEDIA MARKETING COORDINATOR history. Since the positive test she has been having nausea but current antiemetic medications are controlling that symptom. She has had no spotting or bleeding since her last period in January. Because of her severe pain & metastatic disease, she would like to move forward as quickly as possible with aggressive treatment for her breast cancer. A transvaginal ultrasound was obtained last evening documenting an 8-week 3-day viable intrauterine with a small subchorionic hemorrhage. After considerable deliberation, the patient and her wish to proceed with termination of the so that she can expedite her treatment. I reviewed the 2 options for termination which include both medical & surgical options that would be appropriate for her gestation. The risk for both these procedures were discussed with the patient at length. She understands even with medical treatment she may require a D&C for retained tissue. She also understands there could be significant bleeding with the medical option as well. Policies at our facility preclude performing elective termination here. Her PCP has been in contact with [place] and they are amenable to performing the procedure there. Her current pain level would make it very difficult for her to travel to [place] at this time so better pain control would be necessary prior to this being possible. She is having a port placed this morning and more than likely will be an inpatient for several more days until her pain is more manageable. We will discuss her management of this further with her admitting physicians. Allergies Allergy/AdvReac Type Severity Reaction Status Date / Time No Known Allergies Allergy Unverified 03/31/21 15:43 Home Medications Medication Instructions Recorded Confirmed Type oxycodone 5 mg tablet 5 mg PO Q6H PRN #16 tab 03/31/21 Rx vitamin-ferrous sulfate 1 tab PO DAILY 03/31/21 03/31/21 History 27 mg iron-folic acid 0.8 mg tablet Patient History Social History Smoking Status: Never smoker Hx Alcohol Use: No Hx Substance Use: No Preferred Language: Greek Communication Ability: Effective Diesel Mechanic Farm Required: No Beliefs That Will Affect Care: None Current Living Situation: Spouse Feels Safe at Home: Yes Assistive Devices: None Results & Data ([facility]) Vital Signs (Past 12 Hours) Vital Signs Temp Pulse Resp BP Pulse Ox 04/09/21 22:00 97.9 F 76 18 100/66 98 PG Care Time/CCT Total # of Minutes Spent Total Time Spent with Patient: Total time spent is greater than 50% in coordination of care (as documented) at patient's floor/unit and/or counseling patient: Coding Level of Care Code 32422 Inpt Consult Level 3
[2021-04-10] MEDS ORDERED: PROMETHAZINE HCL 12.5 MG in SODIUM CHLORIDE 0.9% 50 ML IV PRN (08:20)
[2021-04-10] MEDS ORDERED: ONDANSETRON INJ 2 MG/ML 2 ML VIAL IV PRN (08:20)
[2021-04-10] MEDS ORDERED: ATROPINE SULFATE 0.1 MG/ML 10ML SYR IV PRN (08:20)
[2021-04-10] MEDS ORDERED: ePHEDrine sulfate 50 MG/ML AMP IV PRN (08:20)
[2021-04-10] MEDS ORDERED: fentaNYL citrate 100 MCG/2 ML VIAL IV PRN (08:20)
--- NOTE | 2021-04-10 09:18 | Post Operative Brief Note ---
Immediate Post Op Note v1 Date of Surgery April 10, 2021 Pre & Post Diagnosis Operation Date: 04/10/21 07:30 Pre-Op Diagnosis: metastatic breast cancer Post-Op Diagnosis: metastatic breast cancer I identified the patient and participated in the time-out.: Yes Procedure Operation Date: 04/10/21 07:30 Actual Procedures p Placement of Left internal jugular vein A-Port Catheter(Left) - Jose Luis Alaniz MD Surgeon Jose Luis Alaniz MD Hotel Office Manager surgical specialist Estimated Blood Loss 5 Findings Consistent with Post-Op Diagnosis patent on left internal jugular vein Fluids 500ml Anesthesia Type Local Complications none Disposition Accompanied Patient To Recovery: Yes
[2021-04-10] MEDS ORDERED: ONDANSETRON INJ 2 MG/ML 2 ML VIAL ONE (09:30)
--- NOTE | 2021-04-10 09:46 | XRay Report ---
XR chest 1V portable CLINICAL HISTORY: S/P insertion port COMPARISON STUDY: Chest CT April 09, 2021. FINDINGS: There is no pneumothorax placement of a left internal jugular [id number]-[id number]. Catheter tip p rojects over the cavoatrial junction. Pulmonary vascular congestion is present. Possible trace bilate ral pleural effusions. Cardiac size is normal. Multiple osseous metastases are better depicted on [facility] CT of April 09, 2021. IMPRESSION: 1. No pneumothorax following placement of a left internal jugular [id number]. 2. Pulmonary vascular congestion with possible trace bilateral pleural effusions. ACT 112: Negative or not required by law. Electronically signed by: Kurtis Peralta M.D. 04/10/2021 9:45 AM
[2021-04-10] MEDS: CYCLOBENZAPRINE HCL 10 MG TAB PO SCH ×3 (10:14→20:54)
[2021-04-10] MEDS ORDERED: MoRPHine SULFATE 4 MG/ML 1 ML CARP\\VIAL ONE (11:15)
[2021-04-10] MEDS: KETOROLAC TROMETHAMINE 15 MG/ML VIAL IV PRN (11:22)
--- NOTE | 2021-04-10 11:42 | Anesthesiology Progress Note ---
Date of Service April 10, 2021 Anesthesia Post Procedure Vital Signs Vital Signs: Temp Pulse Pulse Resp BP Pulse Ox 04/10/21 10:00 37.2 C 84 16 111/73 100 04/10/21 09:55 36.3 C L 82 16 117/85 98 04/10/21 09:45 79 14 119/81 100 04/10/21 09:35 72 20 110/74 100 04/10/21 09:26 36.6 C 62 16 113/72 100 04/09/21 22:00 36.6 C 76 18 100/66 98 04/09/21 17:28 36.8 C 88 20 118/76 99 04/09/21 13:53 96 Pain Intensity Generalized: Pain Intensity: 10 Back: Pain Intensity: 0 Transfer of Care Handoff Completed per policy Notes Mental Status: alert / awake / arousable and participated in evaluation Nausea / Vomiting: adequately controlled Pain: adequately controlled Airway Patency, RR, SpO2: stable & adequate BP & HR: stable & adequate Hydration State: stable & adequate Anesthetic Complications: no major complications apparent and Pt Satisfied with anesthetic care
--- NOTE | 2021-04-10 12:22 | Communication Note ---
Date of Service: April 10, 2021 I have received sign out on this case from Dr. Carter who originally spoke to the patient. I have discussed this case with several people. First I have discussed with the route process administrator communications equipment installer, Nick Barkley. Have explained the situation and the medical indications for termination. She would really like to have this done here if possible, and as soon as possible , so that she can proceed with treatment. Also travel for her in her current situation would be exceedingly difficult. The patient has been appropriately counseled and wishes to prioritize her treatment,therefore, she wishes to terminate so she can proceed in an expedited manner. Have asked for him to look into to policies and protocols regarding this at our institution. He admits he has never been presented with this and acknowledges that it may take him until Monday to come back to me with an answer. He called my back later in the day noting the following *spoken with Dr. Garduno and Candy Hayes, hotel or motel cleaning supervisor *spoke with legal/hospital moapa--may be "regulatory requirements" we have to fulfil to be able to provide * a meeting is planned Monday morning with stakeholders including Phu, Dr. Garduno, etc I discussed with him the plans that had been made regarding getting patient to [facility] for this service (see below). In discussing this case with my colleagues, it seems clear that we will be very unlikely to provide this service, either medically or surgically to the patient at our facility. I discussed this case with Dr. Curtis who has been actively working with this patient on an outpatient basis and Dr. Granados who is currently seeing her on the hospitalist service. Dr. Curtis has spoken with Dr. Yanez with the family planning clinic at [facility]. They will be able to proceed with medical termination of her once she is able to travel to [facility]. They plan on contacting her and making arrangement and appointments with her today, probably seeing her next week. I have discussed with Dr. Granados that they should make sure that the patient understands that some of the medications that she could potentially receive for treatment of her pain or her metastatic breast cancer could be a teratogen but if they receive her specific consent to receive these medications as they would be in a medical effort to treat her pain, which treatment is her ultimate priority and she plans on termination of her in any event to prioritize treatment, she should be treated in the best manner to achieve pain control. If at any point, it appears that this patient has a miscarriage or threatened , we would be available to reevaluate and treat as indicated at that time. Patient has a bone biopsy planned for Monday in our OR at any rate. I will attempt to stop by to explain all of this to the patient and her significant other. It appears we would not be able to do anything at our institution until at least Monday at the earliest.
--- NOTE | 2021-04-10 12:27 | Operative Report (OR) ---
DATE OF PROCEDURE: 04/10/2021 PREOPERATIVE DIAGNOSIS: Metastatic breast cancer. POSTOPERATIVE DIAGNOSIS: Metastatic breast cancer. OPERATION: Insertion of port in the left internal jugular vein. SURGEON: Jose Luis Alaniz MD. ANESTHESIA: Conscious sedation plus local. ESTIMATED BLOOD LOSS: About 5 mL. FINDINGS: Patent left internal jugular vein. COMPLICATIONS: None. INDICATIONS FOR THE PROCEDURE: This is a 35-year-old female who is referred for port insertion for her chemotherapy and metastatic breast cancer. I did talk to the patient about the benefit, risk, alternate procedure. I indicated the risks may include, but not limited to, such as bleeding, infection, injury to other organs, blood clot, dysfunction of catheter. The patient understands and she signed informed consent and I answered all questions. DETAILS OF PROCEDURE: After we identified the patient and verified the procedure, we brought the patient to the OR, put the patient in the supine position on the OR table. The patient received SCD on bilateral legs to prevent DVT. Also, patient received 2 grams of Ancef IV for prophylactic antibiotic. The patient received conscious sedation by the anesthesiology. The left-sided neck and left-sided upper chest wall was prepped and draped in routine sterile fashion. After timeout, I injected the local anesthesia by using 1% lidocaine mixed with 0.5% Marcaine on the left sided neck and left upper chest wall. Then, we used a 16-gauge needle, punctured the left internal jugular vein under ultrasound guidance with easy blood return, passed the wire. Then, we used fluoro to confirm the wire located in the superior vena cava. Once we removed the needle leaving the wire in, we made about a 2.5 cm incision on the left upper chest wall deep to the subcutaneous layer and created a pouch. Hemostasis was obtained. Then, we passed a metal tunneler from the left chest wall to reach the left-sided neck and passed the catheter. The end of the catheter was connected to the port. Then, we used a dilator with a sheath to pass the wire. Again, we used fluoroscopy to confirm the dilator in the left internal jugular vein. Then, we removed the dilator and wire leaving the sheath in and then we passed the port catheter through the sheath, removed the sheath, and used the fluoro to confirm the tip of the catheter located at the junction between the right atrium and superior vena cava. Again, hemostasis was obtained. Then, I used 2-0 Prolene to fix the port at 3 points on the chest wall. Then, I used 2-0 Vicryl, closed subcutaneous layer in continuous running, closed skin by using 4-0 Vicryl in continuous running. Then we injected 10 mL heparin with saline through the port with easy blood return and then we put the dressing on. The patient tolerated the procedure well. All instrument, needle, sponge counts were correct x2 at the end of the case. During the procedure, we put the patient in Trendelenburg position. The patient went back to the recovery room in stable condition. After the procedure, I did talk to the patient and the patient's family member about the OR finding and the procedure we did. Also, I gave them postoperative care instruction, they understand. Job ID: [id number] [facility]
[2021-04-10] MEDS ORDERED: fentaNYL 12 MCG/HR TDSY TD SCH (14:45)
[2021-04-10] MEDS: LIDOCAINE 5% 1 PATCH TD SCH (15:05)
[2021-04-10] MEDS ORDERED: HYDROmorphone PCA 30 MG/30 ML IV PRN (17:42)
[2021-04-10] MEDS ORDERED: NALOXONE HCL 0.4 MG/1 ML VIAL/CARP IV PRN (17:42)
[2021-04-11] MEDS ORDERED: CHECK fentaNYL PATCH PLACEMENT SCH
[2021-04-11 06:16] LABS: Basophils # (auto) 0.01 K/uL (0-0.2); Basophils % (auto) 0.2 %; Eosinophils # (auto) 0.15 K/uL (0-0.5); Eosinophils % (auto) 2.6 %; Hematocrit (blood only) 29.3 % (37-47); Hemoglobin 9.5 g/dL (12.0-16.0); Immature Granulocytes # (auto) 0.04 K/uL (0.00-0.02); Immature Granulocytes % (auto) 0.7 %; Lymphocytes # (auto) 1.24 K/uL (1.2-3.4); Lymphocytes % (auto) 21.8 %; Mean Corpuscular Hemoglobin 27.1 pg (25-34); Mean Corpuscular Hgb Conc 32.4 g/dL (32-36); Mean Corpuscular Volume 83.5 fL (80-100); Mean Platelet Volume 9.1 fL (7.4-10.4); Monocytes # (auto) 0.57 K/uL (0.11-0.59); Neutrophils # (auto) 3.67 K/uL (1.4-6.5); Neutrophils % (auto) 64.7 %; Platelet Count 216 K/uL (130-400); RDW Coefficient of Variation 16.1 % (11.5-14.5); RDW Standard Deviation 48.7 fL (36.4-46.3); Red Blood Count 3.51 M/uL (4.2-5.4); White Blood Count 5.68 K/uL (4.8-10.8)
--- NOTE | 2021-04-11 06:51 | Hospitalist Progress Note ---
Date of Service April 11, 2021 Assessment & Plan (1) Metastatic breast cancer: Plan: Patient is a 35 year old female at 8 weeks with history of recently diagnosed triple positive metastatic breast cancer with lytic lesions to spine and hip admitted for intractable back and neck pain. Since admission patients patient has migrated primarily to her lumbar spine in addition to her L hip. Despite a multitude of pain management medications she has had difficulty finding comfort regardless of position. Metastatic Breast Cancer with Lytic Lesions -Patient has decided to pursue elective for medical necessity in order to undergo aggressive cancer treatment. -She understands that many of the treatment options in regards to both control of her pain, treatment of her cancer, staging of her disease may be harmful to her unborn child and accepts the risks involved as she is planning on elective . -Pain management has been difficult with PRN medications of Tylenol, Toradol, Morphine, Dilaudid, and Lidocaine patches -Trialed Fentanyl patch 12mcg on 04/10/21 for roughly 3 hours at which point patient noted her hip pain was too excruciating and was hopeful for something else -Started on Dilaudid INSERTING OPERATOR at 0.5mg/hr in addition to 0.25mg pushes q15min -- overnight the continuous dilaudid was discontinued -Dosing of PRN pushes increased to 0.35mg [id number] -Morphine and Dilaudid pushes held at this time due to INSERTING OPERATOR -Pain Management consulted for assistance of above as well. -Recommend Decadron 30mg x2 days followed by 5 day taper for reduction of periosteal edema -After discussion with pharmacy, recent evidence shows that 20mg may be sufficient for pain. Will start with Decadron 20mg IV QD x2 days, then continue with 5 day taper -Gabapentin 300mg TID as tolerated for neuropathic pain - patient would like to hold off on this for now -Continued titrate of IV INSERTING OPERATOR hydromorphone as needed -- Can consider INSERTING OPERATOR push 0.5mg q30min or consider bolus 1mg Dilaudid followed by INSERTING OPERATOR 0.5mg q30min -Unfortunately patient has been unable have the MRI of her Cervical, Thoracic, and Lumbar spine -If patient continues to be unable to tolerate MRI, would consider CT of the cervical spine to ensure no cord compression -Pre-chemotherapy Echocardiogram ordered with EF 60-65% -Case has been discussed extensively with OBGYN and Oncology -Oncology following, recommending at this time palliative radiation therapy (current plan for 04/12/21) to help with pain of the hip -Discussed chemotherapy which at this time would likely be deferred until after the termination of the . -Port placed in L internal jugular vein on 04/10/21 by General Surgery -Current plans for bone marrow biopsy on 04/12/21 -Transvaginal US notable for single live intrauterine estimated gesta tional age 8 weeks 3 days in addition to subchorionic hemorrhage. -Patient noting that she would like to pursue elective . -She would want to pursue therapeutic treatment for both her cancer and her pain control, knowing any teratogenic effects it would have on the fetus at this time as she is planning on elective termination. -OBGYN Dr. Yanez at [facility] has been following patients case as well who feels that as this is a medically necessary situation, would be able to assist the patient in regards to elective . She plans on reaching out to the patient directly in regards to possible phone/telemedicine appointment as she would have difficulty with transport to [facility] with her pain as is. -If able to manage patient's pain adequately on an outpatient regiment, patient would likely benefit from evaluation there for termination of the . -At this time our OBGYN provider has discussed this case with several of our hospital administrators and at this time we would likely be unable to provide the service of termination of the at our facility. In the event that the patient has a miscarriage or threatened , our OBGYN team would be able to reevaluate and treat as indicated at that time. Diet: Regular Dispo: Med/Surg Dvt ppx: Lovenox Code: Full Admission and Anticipated Discharge Date Admission Date: April 09, 2021 Supervising Physician Co-Signing Physician Notes Patient seen and examined with PGY-3 Dr. Granados. Agree with history, exam findings, assessment and plan of care as outlined. In brief, Padmaja is a 35 year old female with newly diagnosed triple positive breast cancer with lytic lesions to the spine, currently ~ 8 weeks of gestation admitted for intractable neck and back pain. is at the bedside. Patient has spoke with both Dr. Carter and Dr. Fernandes. There are significant institutional barriers to having termination done here. PCP, Dr. Curtis, has contacted Dr. Yanez at [place] to discuss case and possibly assist with care. Continues to have pain in the spine (thoracic and lower back) with movement, although slightly better control overnight with dilaudid INSERTING OPERATOR. 1. Bony pain secondary to bony mets. Attempted trial of fentanyl without significant improvement yesterday. Did a bit better overnight with dilaudid INSERTING OPERATOR and patient asked if she could stop the continuous infusion and only use push. Does feel that the current 0.25mg dose was not enough to get adequate pain relief so dose was increased slightly to 0.35mg q20min. Also started decadron 20mg daily. Plan to taper in 2-3 days. Discussed using gabapentin, but patient would like to hold off on this for now. Appreciate acute pain recommendations and assistance. Augment with Tylenol, Toradol. Dr. Han has already reached out to Dr. Coats of radiation oncology; set up for radiation oncology on Monday for palliative radiation. 2. Breast cancer, mets to bone and likely liver. Port placed by Dr. Alaniz. Baseline TTE completed. CT guided sternal bone marrow biopsy scheduled for Monday. Appears that her cancer is quite aggressive given that there was an increasing in bony lytic lesions on this most recent chest CT when compared to the initial CT done 2 weeks prior. Appreciate continued oncology recommendations. 3. . ~8 weeks (LMP=US dating). Plans for termination in order to focus on breast cancer treatment. Appreciate Dr. Carter and Dr. Vicente communication with the patient and recommendations for next steps. There are plans for a meeting of the leadership at our institution to discuss the patients case. Patients PCP has also been in touch with Dr. Yanez OB- RACK ROOM WORKER/Family Planning) in [place]. However, logistics will be quite challenging and do not feel that it is in the patients best interest to transfer to another facility 2 hours away with the amount of pain she is experiencing. Transfer with a INSERTING OPERATOR is less than ideal. It would also be in her best interest to terminate sooner rather than later given the aggressive nature of her cancer and the fact that waiting for procedure is delaying her ability to move forward with cancer treatment options. This may be considered a medical emergency as outlined by the [place] Control Act. However, if she experiences bleeding/ demise prior to Monday, will discuss with our OB-RACK ROOM WORKER colleagues for possible intervention here. Dispo: pain control. Subjective Patient evaluated at the bedside. She notes that the Dilaudid INSERTING OPERATOR has made some improvement in her pain, but she is still noticing pain with movement. She notes her current pain is 7/10, but is worse when she attempts to move. At rest her pain is more manageable. She notes that she feels the dose at which her INSERTING OPERATOR is pushing feels as though it is not enough, and would prefer to be able to push at longer intervals if the initial dosage were stronger to allow her to work through her pain. She denies any fever, chills, SOB, chest pain. She continues to note primarily low back and bilateral hip pain worse on the L. Review of Systems Review of Systems: All systems reviewed & are unremarkable except as noted in Subjective Physical Exam Constitutional: + ill appearing, + disheveled and cooperative Respiratory: normal respiratory effort, lungs clear to auscultation Cardiovascular: RRR, no murmur, no edema Results & Data Results & Data ([facility]) Vital Signs (Past 12 Hours) Vital Signs Temp Pulse Resp BP Pulse Ox 04/11/21 06:18 36.8 C 82 16 103/68 97 04/11/21 02:26 36.8 C 78 16 104/68 97 04/10/21 22:57 36.8 C 87 16 96/63 L 95 04/10/21 21:32 36.8 C 91 H 16 114/77 100 04/10/21 20:23 37.0 C 93 H 17 103/65 97 04/10/21 19:41 36.8 C 81 16 101/66 94 Resident Activity Tracking Resident Involvement: Resident Care Provided Care Provided: Adult Hospital Medicine
[2021-04-11] MEDS: LIDOCAINE 5% 1 PATCH TD SCH (07:57)
[2021-04-11] MEDS: CYCLOBENZAPRINE HCL 10 MG TAB PO SCH ×3 (09:16→20:36)
--- NOTE | 2021-04-11 11:04 | Consultation Report ---
MEDICAL ONCOLOGY CONSULTATION DATE OF SERVICE: 04/10/2021. REASON FOR CONSULTATION: Intractable pain in a pleasant 35-year-old female with new diagnosis of tri ple-positive metastatic breast cancer. HISTORY OF PRESENT ILLNESS: Padmaja Burris is a very pleasant 35-year-old woman recently diagnosed wi th triple-positive metastatic breast cancer under the care Dr. Gwendolyn Han, presented to the [facility] ency Room with intractable skeletal pain. This poor lady again has been battling with a steady clini sarthak decline, manifested by generalized weakness and increasing skeletal pain. The patient had presen nicolas earlier in March with tachycardia and chest pain. CT scan of the chest at that time detected primary breast cancer and lytic bony lesions. The breast mass was further evaluated via diagnostic m ammography and ultrasound-guided fine needle biopsy on '. Pathology confirmed ER/NV/HE R-2/codi positive invasive ductal carcinoma. The patient subsequently sought second opinion at [facility] on 04/07, at which time, treatment options were reviewed. Unfortunately, this lady is also 8 weeks as confirmed by uterine ultrasound. On the day of admission, she had contacted [facility] seeking guidance regarding intractable skeletal pain. I was the physician foundation director , attempted to call them back and there was no answer. As it turns out, they were en route to [facility]'s Emergency Room. Dr. aHn first met Padmaja on 04/08/2021 to lay out therape utic options. Subsequently, switched back to low dose opioids in an attempt of managing the patient' s pain. The patient was admitted to [facility], currently on hospitalist service s [facility] for pain management and insertion of MediPort device to proceed with salvage chemotherapy. I s poke to Dr. Han by phone and she has formulated a treatment plan consisting of docetaxel, Herceptin , and Perjeta moving forward. PAST MEDICAL HISTORY: Essentially negative. PAST SURGICAL HISTORY: Negative. MEDICATIONS: Oxycodone 5 mg p.o. q.6 hours p.r.n. for pain and vitamins 1 tablet p.o. ashish y. ALLERGIES: No known drug allergies. SOCIAL HISTORY: The patient is and lives with her spouse. She is a nonsmoker, nondrinker, n onillicit drug user. FAMILY HISTORY: Noncontributory. REVIEW OF SYSTEMS: All systems negative except for disseminated musculoskeletal pain focused on the thoracic spine and lower portion of her neck. PHYSICAL EXAMINATION: GENERAL: Very pleasant 35-year-old female, awake, alert, appropriate, in no acute distress. VITAL SIGNS: Temperature 36.8, pulse 82, respiratory rate 16, blood pressure 103/68. SKIN: Warm, dry, noncyanotic without petechia, rash or ecchymosis. HEENT: Atraumatic, normocephalic. Eyes: PERRLA. EOMI. Sclerae are nonicteric. No conjunctival in jection. Nares patent without rhinorrhea or discharge. Throat clear. Tongue midline. Mucous membr anes are moist. NECK: Supple without JVD or thyromegaly. LYMPHATICS: No cervical or supraclavicular palpable nodes. HEART: Regular rate and rhythm. No clicks, rubs, murmurs or gallops. LUNGS: Clear to auscultation bilaterally. ABDOMEN: Soft, nontender, nondistended, without palpable hepatosplenomegaly. EXTREMITIES: No calf tenderness or swelling. No clubbing, cyanosis or edema. NEUROLOGIC: She is awake, alert and oriented x3. Cranial nerves are grossly intact. LABORATORY DATA: WBC count 5680, hemoglobin 9.5, platelet count 216,000. RADIOGRAPHIC DATA: CT scan of the abdomen and pelvis performed on the reveals no acute infectio us or inflammatory issues, evidence again for diffuse osteolytic metastatic disease, noting a minimal pathologic superior endplate compression fracture at L4. CT scan of the chest reveals again extensi ve skeletal metastatic disease with slight progression as compared to 03/24 imaging, redemonstration of T8 pathologic fracture and slight epidural extension to T10, right breast mass with asymmetric rig ht breast skin thickening. New 5 mm ground glass right lower nodule and a 1 cm right hepatic lobe le zamzam - these are indeterminate. IMPRESSION: 1. Intractable skeletal pain due to expansion of metastatic disease. 2. Triple-positive metastatic breast cancer. 3. Eight-week intrauterine . PLAN: I met Padmaja and her at bedside this morning. Unfortunately, this is a very difficult complex clinical situation where clearly the patient has rapidly progressive metastatic triple-posit jeremías breast cancer and in need of expedient salvage chemotherapy. Considering the patient is 8 weeks and has opted for elective termination of , question remains whether it can be don e here at [facility] versus [facility]. A decision needs to be made sooner rather than later to pursue chemotherapy. I spoke to Dr. Han by phone and she has been in contact with radiation oncology to consider palliative XRT to selected bony lesions causing symptoms. That said, MediPort has been installed and the patient can receive chemotherapy as soon as the h as been effectively terminated. Attempted further imaging, specifically, MRI; however, the patient's pain is too severe for her to lie still effectively and we will continue to titrate pain medicines, hopefully we can obtain the necessary imaging. I have nothing further to add and Dr. Han will take over her case on Monday. Thank you very much for allowing me to participate in her care. Any questions or concerns, please fe el free to contact me at any time. Job ID: [id number]
--- NOTE | 2021-04-11 11:34 | Surgery Progress Note ---
Date of Service April 11, 2021 Assessment & Plan (1) Metastatic breast cancer: Plan: Mrs. Burris is a 35 yo woman who was unfortunately diagnosed with metastatic breast cancer earlier this month who is being admitted to [facility] for pain control (due to metastatic lesions to the spine). Of note, she is (8 weeks gestation, dated via LMP). Her breast cancer and lytic bony lesions were first detected on a Chest CT scan done on 03/24/21 (ordered initially to rule out a pulmonary embolism in the setting of tachycardia and chest pain). The R breast lump was further evaluated via diagnostic mammography and an ultrasound guided fine needle aspiration on 03/29/21. Pathology returned showing ER/MT/Her-2-codi positive ductal carcinoma. Fine needle aspiration of a sentinel node also returned positive for metastatic disease. She met with an oncologist at [facility] (Dr. Perez) on 04/07/21 - at which time treatment options were reviewed. Her chemotherapy will be carried out locally at [facility] under the guidance of Dr. Han - whom she had her first office visit with on 04/08/21. Due to worsening of her back/neck pain, patient presented to the [facility] ED for IV pain medications. She stated that her and her have decided to terminate the in order to pursue aggressive medical treatment of her underlying malignancy. plan: pt will have port insertion on sedation + local anesthesia tomorrow, D/W benefits, risks and alternatives of the surgery, the risks - infection, bleeding, injury other organs, blood clot, dysfunction catheter, pt and her understood, they agree with the surgery, pt signed informed consent, I answered all questions, NPO after MN, 04/11/2021 11:31AM DR. Alaniz F/U port insertion, pt is doing fine, keep the dressing on for 4 days, she can take a shower on 04/14/2021, flushing port every 6 weeks, F/U ma 2 weeks, pt and her understood, I answered all questions, sign off today, please call with questions, Thanks, Admission and Anticipated Discharge Date Admission Date: April 09, 2021 Supervising Physician Co-Signing Physician Notes Patient seen and examined with PGY-3 Dr. Granados. Agree with history, exam findings, assessment and plan of care as outlined. In brief, Padmaja is a 35 year old female with newly diagnosed triple positive breast cancer with lytic lesions to the spine, currently 8weeks of gestation admitted for intractable neck pain + ?radicular symptoms. is at the bedside. Had port placed with morning with Dr. Alaniz. Patient has spoke with both Dr. Carter and Dr. Fernandes. There are significant institutional barriers to having termination done here. PCP, Dr. Curtis, has contacted Dr. Yanez at [place] to discuss case and assist with care. Continues to have pain in the spine (thoracic and lower back) with movement. Patient and are aware that mediations like Toradol can be teratogenic and other medications like the opioids are be harmful to a fetus. In particular, discussed possibility of fentanyl patch for better overall pain control. Unfortunately, attempted fentanyl patch for several hours with PRN dilaudid and pain was not at all controlled. Long discussion with patient and her . They are willing to try a CORPORATE COMPLIANCE DIRECTOR to better pain control. They understand the risks for CORPORATE COMPLIANCE DIRECTOR including respiratory depression and harm to fetus. They are understandably concerned regarding the severe pain Padmaja is experiencing even with minimal movement. They are also concerned about the inability of our facility to provide termination as they feel this is delaying her ability to start chemotherapy and radiation. 1. Bony pain secondary to bony mets. Attempted trial of fentanyl without significant improvement. After a long discuss regarding risks and benefits of dilaudid CORPORATE COMPLIANCE DIRECTOR, they are agreeable to start dialudid CORPORATE COMPLIANCE DIRECTOR. They are aware fo the risks of respiratory depression as well as monitoring parameters for the CORPORATE COMPLIANCE DIRECTOR. Augment with Tylenol, Toradol. Discussed possibility of radiation to bony mets with oncology, Dr. Han. She has already reached out to Dr. Coats of radiation oncology; set up for radiation oncology on Monday to help with pain. Discussed with patient and that at this time, chemo would do little to help with pain and may put her at increased risk for complication or a difficult recovery following any planned procedure for termination. 2. Breast cancer, mets to bone and likely liver. Port placed today by Dr. Alaniz. Baseline TTE completed. CT guided sternal bone marrow biopsy scheduled for Monday. Appears that her cancer is quite aggressive given that there was an increasing in bony lytic lesions on this most recent chest CT when compared to the initial CT done 2 weeks prior. Appreciate continued oncology recommendations. 3. . Plans for termination in order to focus on breast cancer treatment. Appreciate Dr. Carter and Dr. Vicente communication with the patient and recommendations for next steps. Spoke with Dr. Fernandes. There are plans for a meeting of leadership at our institution to discuss the patients case. Patients PCP has also been in touch with Dr. Yanez in [place]. However, logistics will be quite challenging and do not feel that it is in the patients best interest to transfer to another facility 2 hours away with the amount of pain she is experiencing. Transfer with a CORPORATE COMPLIANCE DIRECTOR is less than ideal. However, if she experiences bleeding/ demise prior to Monday, will discuss with our OB- COMMUNICATIONS CLERK colleagues for possible intervention here. Dispo: pain control. Subjective Patient evaluated multiple times throughout the day for discussion of her pain. Patient notes that despite the therapies she has been receiving for pain control, her pain continues to remain intolerable with any sense of movement. She notes she has been unable to have the MRI's completed due to the inability to stay in the machine or laying down in a certain position for much time without extreme pain. She denies any fever, chills, SOB. She notes fortunately that her neck pain has improved, but both her lumbar and her L hip pain are excruciating. She states it feels as though there is a "monster" that comes out everytime she goes to move. 04/11/2021 11:[address] Alaniz F/U S/P port insertion, POD 1 pt is doing fine, no fever, Physical Exam Constitutional: WD/WN, vitals as above Eyes: PERRL, conjunctivae normal, anicteric sclerae Neck: trachea midline, no thyromegaly Respiratory: normal respiratory effort, lungs clear to auscultation Cardiovascular: RRR, no murmur, no edema Chest (Breasts): Additional Comments: the port site incision intact, no redness, Musculoskeletal: Spine: + cervical spinal tenderness Neurologic: patellar DTR's 2+ bilat, sensation intact Psychiatric: A+Ox3, euthymic affect Results & Data ([facility]) Vital Signs (Past 12 Hours) Vital Signs Temp Pulse Resp BP Pulse Ox 04/11/21 10:23 36.8 C 84 16 102/68 99 04/11/21 06:18 36.8 C 82 16 103/68 97 04/11/21 02:26 36.8 C 78 16 104/68 97
[2021-04-11] MEDS: ENOXAPARIN INJ 40 MG/0.4 ML SYR SQ SCH (13:00)
[2021-04-11] MEDS ORDERED: dexAMETHasone 20 MG in SYRINGE 0 ML IV SCH (15:00)
[2021-04-11] MEDS: dexAMETHasone 20 MG in DEXTROSE 5% 25 ML IV SCH (15:39)
[2021-04-11] MEDS: SODIUM CHLORIDE 0.9% 1000ML 1,000 ML IV SCH (16:51)
--- NOTE | 2021-04-12 06:54 | Hospitalist Progress Note ---
Date of Service April 12, 2021 Assessment & Plan (1) Metastatic breast cancer: Plan: Patient is a 35 year old female at 8 weeks with history of recently diagnosed triple positive metastatic breast cancer with lytic lesions to spine and hip admitted for intractable back and neck pain. Since admission patients patient has migrated primarily to her lumbar spine in addition to her L hip. Despite a multitude of pain management medications she has had difficulty finding comfort regardless of position. Metastatic Breast Cancer with Lytic Lesions -Patient has decided to pursue elective for medical necessity in order to undergo aggressive cancer treatment. -She understands that many of the treatment options in regards to both control of her pain, treatment of her cancer, staging of her disease may be harmful to her unborn child and accepts the risks involved as she is planning on elective . -Pain management has been difficult with PRN medications of Tylenol, Toradol, Morphine, Dilaudid, and Lidocaine patches -Trialed Fentanyl patch 12mcg on 04/10/21 for roughly 3 hours at which point patient noted her hip pain was too excruciating and was hopeful for something else -Started on Dilaudid ARMOR RECONNAISSANCE SPECIALIST at 0.5mg/hr in addition to 0.25mg pushes q15min -- overnight the continuous dilaudid was discontinued -Dosing of PRN pushes increased to 0.35mg [id number] -Morphine and Dilaudid pushes held at this time due to ARMOR RECONNAISSANCE SPECIALIST -Pain Management consulted for assistance of above as well. -Recommend Decadron 30mg x2 days followed by 5 day taper for reduction of periosteal edema -After discussion with pharmacy, recent evidence shows that 20mg may be sufficient for pain. Received Decadron 20mg IV QD x2 days,will continue with 5 day taper starting 04/13 -Gabapentin 300mg TID as tolerated for neuropathic pain - patient would like to hold off on this for now -Continued titrate of IV ARMOR RECONNAISSANCE SPECIALIST hydromorphone as needed -- Can consider ARMOR RECONNAISSANCE SPECIALIST push 0.5mg q30min or consider bolus 1mg Dilaudid followed by ARMOR RECONNAISSANCE SPECIALIST 0.5mg q30min - Started scheduled APAP and Toradol as well -Unfortunately patient has been unable have the MRI of her Cervical, Thoracic, and Lumbar spine -- will reattempt today with request made for more staff to move her and will give 1mg Dilaudid 30 min prior to attempting -If patient continues to be unable to tolerate MRI, would consider CT of the cervical spine to ensure no cord compression -Pre-chemotherapy Echocardiogram ordered with EF 60-65% -Case has been discussed extensively with OBGYN and Oncology -Oncology following, recommending at this time palliative radiation therapy to help with pain of the hip -- initially planned for 04/12 but now postponed until after termination of as below -Discussed chemotherapy which at this time would likely be deferred until after the termination of the . -Port placed in L internal jugular vein on 04/10/21 by General Surgery -Had plans for bone biopsy on 04/12/21 -- however, patient preferring not to undergo at this time so will hold off and focus on pain control as above and plans as below -Transvaginal US notable for single live intrauterine estimated gestational age 8 weeks 3 days in addition to subchorionic hemorrhage. -Patient noting that she would like to pursue elective . -She would want to pursue therapeutic treatment for both her cancer and her pain control, knowing any teratogenic effects it would have on the fetus at this time as she is planning on elective termination. -OBGYN Dr. Yanez at [facility] has been following patients case as well who feels that as this is a medically necessary situation, would be able to assist the patient in regards to elective . She plans on reaching out to the patient directly in regards to possible phone/telemedicine appointment as she would have difficulty with transport to [facility] with her pain as is. -If able to manage patient's pain adequately on an outpatient regiment, patient would likely benefit from evaluation there for termination of the . -After discussion by hospital administration, decision was made to proceed with medically indicated termination of -- OBGYN planning to consent 04/12 and will then have to wait 24 hours per [place] law before proceeding with the procedure Diet: Regular Dispo: Med/Surg Dvt ppx: Lovenox Code: Full Admission and Anticipated Discharge Date Admission Date: April 09, 2021 Supervising Physician Co-Signing Physician Notes I personally examined the patient and verified all esposito points of history and exam, discussed case, and agree with decision making with Dr Chavarria pain fairly intense with movement. worried about transfers for tests, etc vitals noted nad heent nc at mmm breathing unlabored no accessory muscles good efffort Metastatic breast cancer/intractable paincontinue to adjust pain control, premedicate before movements. Working on initiating chemo and radiation therapygiven intensity of pain and difficulty with movement, I discussed with radiation oncology and hematology/oncologyand barring a surprise improvement in her pain control, the plan moving forward will be to start to treat this while she is still inpatient. Otherwise as above. Without treatment for cancer, i highly doubt that she would survive to the end of ; with cancer treatment fetus would be subjective to excessively toxic/teratogenic treatments -- therefore above plan for termination appears to be the only rational course of action. Subjective No acute events overnight. Patient currently reasonably well controlled from a pain standpoint. She mentions that if she lays relatively still or limits her movements only to rolling in the bed to either side, she is able to tolerate and has not needed to use the ARMOR RECONNAISSANCE SPECIALIST. However, she says any movement, including attempting to move to another bed as has been attempted for MRI does cause significant pain. Request possibly having more staff present to transfer her from [facility] to the other though as to limit the amount of movement she ultimately has. Review of Systems Review of Systems: Denies fever, chills, nausea, vomiting, chest pain, palpitations, shortness of breath, cough Physical Exam Constitutional: + ill appearing, + disheveled and cooperative Respiratory: normal respiratory effort, lungs clear to auscultation Cardiovascular: RRR, no murmur, no edema Results & Data Results & Data ([facility]) Vital Signs (Past 12 Hours) Vital Signs Temp Pulse Resp BP Pulse Ox 04/12/21 04:30 36.6 C 76 14 96/59 L 97 04/12/21 00:30 36.6 C 81 16 100/69 97 04/11/21 20:31 36.9 C 78 18 111/73 97 Resident Activity Tracking Resident Involvement: Resident Care Provided Care Provided: Adult Hospital Medicine
[2021-04-12 07:33] LABS: Eosinophils # (auto) 0.01 K/uL (0-0.5); Eosinophils % (auto) 0.2 %; Hematocrit (blood only) 29.6 % (37-47); Immature Granulocytes # (auto) 0.01 K/uL (0.00-0.02); Immature Granulocytes % (auto) 0.2 %; Lymphocytes # (auto) 0.68 K/uL (1.2-3.4); Lymphocytes % (auto) 10.5 %; Mean Corpuscular Hemoglobin 27.5 pg (25-34); Mean Corpuscular Hgb Conc 33.8 g/dL (32-36); Mean Corpuscular Volume 81.3 fL (80-100); Mean Platelet Volume 9.5 fL (7.4-10.4); Monocytes # (auto) 0.16 K/uL (0.11-0.59); Monocytes % (auto) 2.5 %; Neutrophils # (auto) 5.61 K/uL (1.4-6.5); Neutrophils % (auto) 86.6 %; Platelet Count 251 K/uL (130-400); RDW Coefficient of Variation 15.7 % (11.5-14.5); RDW Standard Deviation 46.9 fL (36.4-46.3); Red Blood Count 3.64 M/uL (4.2-5.4); White Blood Count 6.47 K/uL (4.8-10.8)
[2021-04-12 07:56] LABS: BUN Creatinine Ratio 28.9 (10-20); Calcium 9.8 mg/dl (8.5-10.1); Est GFR (African American) 148.4 ml/min; Potassium 3.9 mmol/L (3.5-5.1)
[2021-04-12] MEDS ORDERED: METHYLNALTREXONE BROMIDE 12 MG/0.6 ML VIAL SQ PRN (08:53)
[2021-04-12] MEDS: POLYETHYLENE (MIRALAX) 17 GM PACK PO SCH (09:17)
[2021-04-12] MEDS: dexAMETHasone 20 MG in DEXTROSE 5% 25 ML IV SCH (09:40)
[2021-04-12] MEDS: LIDOCAINE 5% 1 PATCH TD SCH (09:40)
[2021-04-12] MEDS: CYCLOBENZAPRINE HCL 10 MG TAB PO SCH ×3 (09:41→21:07)
[2021-04-12] MEDS ORDERED: fentaNYL 12 MCG/HR TDSY TD SCH (09:45)
[2021-04-12] MEDS: DULoxetine HCL 30 MG CAP PO SCH (10:05)
[2021-04-12] MEDS: DOCUSATE SODIUM 100 MG CAP PO SCH ×2 (10:05→21:06)
[2021-04-12] MEDS: KETOROLAC TROMETHAMINE 15 MG/ML VIAL IV SCH ×3 (10:35→21:07)
[2021-04-12] MEDS: ACETAMINOPHEN 1,000 MG/100 ML VIAL IV SCH ×2 (10:35→17:39)
[2021-04-12] MEDS: ENOXAPARIN INJ 40 MG/0.4 ML SYR SQ SCH (10:36)
[2021-04-12] MEDS ORDERED: HYDROmorphone INJ 1 MG/ML SYRINGE IV PRN (11:45)
--- NOTE | 2021-04-12 12:37 | Radiation OncologyConsultation ---
Date of Consultation April 12, 2021 Assessment & Plan (1) Metastatic breast cancer: (2) : Weeks of gestation: 8 weeks Qualified Code(s): Z3A.08 - 8 weeks gestation of Assessment: Ms. Burris is a 35-year old female (1st trimester) with widespread metastatic breast cancer (triple positive) to bone. The patient has been admitted to the hospital for pain control and management. The patient is scheduled to undergo termination of tomorrow in order to initiate chemotherapy for her breast cancer. Dr. Han from medical oncology plans to initiate systemic chemotherapy following the termination of later this week. I have been asked to evaluate the patient regarding palliative external beam radiation therapy. Recommendation: Palliative external beam radiation therapy to lumbar spine and sacrum. 1 fraction. 800 cGy. Plan: 1. CT simulation for treatment planning to expedite treatment planning. 2. Plan to deliver single fraction palliative external beam radiation therapy following termination of . 3. Patient will follow up with medical oncology to initiate chemotherapy. 4. Pain management as per primary medical team and pain management. 5. Patient and family encouraged to call us with any further questions or concerns. Rationale/Explanation of Treatment: I did explain the indications, alternatives, benefits, risks and side effects of external beam radiation therapy. I did explain the most common side effects including, but not limited to, skin erythema, skin breakdown, hyperpigmentation, telangiectasia, wound complications, perianal fistula development, fistula formation, nausea, vomiting, bowel obstruction, bowel perforation, dysuria, increased urinary frequency, urgency, diarrhea, constipation, melena, hematochezia, hematuria, radiation cystitis, radiation proctitis, fatigue, decreased blood counts, wound complications from surgery, rectal incontinence, secondary malignancy development. I did explain the procedures and daily process of radiation therapy. The patient understands and would be willing to consent to treatment. The patient and had multiple questions which were answered to their full satisfaction. Thank you for allowing us to participate in the care of this patient. This chart was completed in part utilizing [employer] Speech Voice Recognition software. Attempts were made to minimize the grammatical errors, random word insertions, pronoun errors and incomplete sentences. Any formal questions or concerns about the content, text or information contained within the body of this dictation should be directly addressed to the provider for clarification. Sidney Coats MD Department of Radiation Oncology [facility] Cheryl Cruz [facility] History of Present Illness Attending Physician: Alex Rosa DO History of Present Illness 03/2021. Patient found to be and having chest pain and right breast tenderness. 03/24/2021. CTA of chest. IMPRESSION: 1. No evidence of pulmonary embolism. 2. Multiple lytic foci are seen in the spine in this patient with history of chest and back pain. This may be secondary to process such as multiple myeloma or metastatic disease of unknown primary. 03/29/2021. Bilateral diagnostic mammogram with targeted ultrasound and biopsy. IMPRESSION: ACR BI-RADS CATEGORY 5: HIGHLY SUGGESTIVE OF MALIGNANCY, ULTRASOUND ACR BI-RADS CATEGORY 5: HIGHLY SUGGESTIVE OF MALIGNANCY. 1. Right breast ultrasound-guided core biopsy is recommended for a suspicious irregular 20 mm hypoechoic solid mass in the 1:00 posterior breast, correlating with a mammographic mass with associated distortion and calcification. 2. There is diffuse right breast skin thickening, concerning for inflammatory breast cancer. Could consider surgical skin punch biopsy, if will aid in management. 3. An inferior right axillary lymph node demonstrates more prominent cortical thickness compared to other visualized lymph nodes, concerning for metastatic disease. Fine-needle aspiration and/or core needle biopsy of this lymph node is recommended. 4. These results and recommendations were discussed with the cassy ent at the time of the exam. At the time of ultrasound and image review, I discussed with the patient that we routinely place biopsy markers at each site of biopsy, for further reference, particularly if the patient needs surgery or neoadjuvant chemotherapy. After extensive discussion with the patient and her on the phone, she does not feel comfortable with marker placement at this time. Therefore, I altered plans to sample the suspicious mass in the right 1:00 breast. If this mass is malignant, we will bring her back to the department for biopsy marker placement and also to sample the right axillary lymph node with prominent cortex and subsequent clip placement as well. 5. The right breast biopsy was performed during the same appointment and please refer to a separate report for full detail. 03/29/2021. Breast, right, 1 o'clock, core biopsy: - Invasive ductal carcinoma, grade 3. - Estrogen Receptor: Positive (98%, intermediate-strong intensity, H score 245). - Progesterone Receptor: Positive (10%, variable intensity, H score 20). - HER2/codi Immunohistochemistry: Positive (score 3+). - Ki-67 Proliferation Index: 60% (high). - Maximum linear extent of tumor: 17 mm. - See comment. Her2 positive. 04/02/2021. Lymph node, right, ultrasound guided aspiration: - Malignant cells present consistent with metastatic carcinoma, breast primary. - See comment. 04/08/2021. Medical oncology consultation with Dr. Han. Completion of staging work-up and urgent evaluation by obstetrics/gynecology regarding potential termination of prior to initiating chemotherapy. 04/09/2021. Patient admitted to hospital due to signifcant pain control issues and further work up and evaluation. 04/09/2021. CT of chest. IMPRESSION: 1. Extensive skeletal metastatic disease with slight progression since CT of March 24, 2021. Redemonstration of a T8 pathologic fracture and slight epidural extension at the T10 level. No severe central canal stenosis by CT. Mild to moderate multilevel neural foraminal stenosis due to skeletal lesions. 2. Right breast mass with asymmetric right breast skin thickening consistent with primary malignancy. 3. New 5 mm groundglass right lower lobe nodule and a 1 cm right hepatic lobe lesion. These are indeterminate. 04/09/2021. CT of abdomen/pelvis. IMPRESSION: 1. No acute infectious or inflammatory findings are seen in the abdomen or pelvis. 2. There is evidence of diffuse osteolytic metastatic disease as detailed above noting a minimal pathologic superior endplate compression fracture of L4. 3. Rectosigmoid fecal retention and moderate constipation. 4. Significant dermal thickening is noted in the right breast. 5. Left-sided nephrolithiasis. 6. The uterus is enlarged and heterogeneous noting an intrauterine gestation. 7. Trace nonspecific free fluid is seen in the cul-de-sac. 8. An 11 mm indeterminant hypodensity in the posterior right lobe of the liver likely represents a hemangioma but is incompletely characterized. 9. Additional findings as above. 04/09/2021. Transvaginal ultrasound. Impression: Single live intrauterine . Based on crown-rump length, the estimated sonographic gestational age is 8 weeks 3 days. Small subchorionic hemorrhage is noted. Allergies Allergy/AdvReac Type Severity Reaction Status Date / Time No Known Allergies Allergy Unverified 03/31/21 15:43 Home Medications Medication Instructions Recorded Confirmed Type oxycodone 5 mg tablet 5 mg PO Q6H PRN #16 tab 03/31/21 Rx vitamin-ferrous sulfate 1 tab PO DAILY 03/31/21 03/31/21 History 27 mg iron-folic acid 0.8 mg tablet Patient History Social History Smoking Status: Never smoker Hx Alcohol Use: No Hx Substance Use: No Preferred Language: Italian Communication Ability: Effective Stratigraphy Teacher Required: No Beliefs That Will Affect Care: None Current Living Situation: Spouse Feels Safe at Home: Yes Assistive Devices: None Physical Exam Physical Exam: Limited examination due to patient discomfort. Constitutional: WD/WN, vitals as above Psychiatric: A+Ox3, euthymic affect
--- NOTE | 2021-04-12 14:19 | Pain Management Consultation ---
Date of Consultation April 12, 2021 Assessment & Plan (1) Metastatic breast cancer: 1. Recommend reinitiation of fentanyl 12 mcg every 72 hour patch for basal pain control. Continue utilization of IV hydromorphone CHUCK WAGON DRIVER to best adjust fentanyl dosing will be performed tomorrow. 2. We discussed preemptive pain management prior to activity for greater control of pain. 3. Recommend initiation of Cymbalta 30 mg p.o. every morning to augment descending pain regulatory pathways. 4. Commend continuation of Toradol, Lidoderm patch, Flexeril. As needed 5. Recommend bowel regimen Colace and MiraLAX with backup Relistor. 6. We will follow with the patient tomorrow to determine efficacy and adjust accordingly. Thank you for this consultation. History of Present Illness Attending Physician: Alex Rosa DO History of Present Illness 35-year-old female G1, P0 at 8 weeks with recent diagnosis of metastatic breast cancer and noted spine and hip lesions. She states that her primary source of pain is axial low back pain with some right greater than left-sided radicular symptoms to the level of the anterior thigh. She characterizes this pain as sharp stabbing ranging between 0-10 pain out of rest escalating to 10 out of 10 pain with any slight movement. She finds this pain to be only mildly responsive to current opiates. She notes significant constipation with current dosing. Last bowel movement was greater than 2 days previous. She utilized 1.3 mg of IV hydromorphone over the last 24 hours in addition to Toradol, Lidoderm patches, dexamethasone, Flexeril, IV Tylenol. She did utilize a fentanyl 12 mcg patch for approximately 3 hours without side effects yesterday. The fentanyl was discontinued as she felt it was not significantly efficacious for her pain and IV hydromorphone CHUCK WAGON DRIVER was initiated. Her second area of pain would be right neck/shoulder with radiation to the scapula characterized as a dull cramping sensation minimized with Flexeril dosing. She states she intends to terminate her and appropriate accommodations are underway. Treatment pathway for her breast cancer is currently underway with radiation therapy, medical on-call oncology, general surgery for port placement and biopsy. Pain Assessment Pain scale - at its best (0-10): 0 Pain scale - at its worst (0-10): 10 Allergies Allergy/AdvReac Type Severity Reaction Status Date / Time No Known Allergies Allergy Unverified 03/31/21 15:43 Home Medications Medication Instructions Recorded Confirmed Type oxycodone 5 mg tablet 5 mg PO Q6H PRN #16 tab 03/31/21 Rx vitamin-ferrous sulfate 1 tab PO DAILY 03/31/21 03/31/21 History 27 mg iron-folic acid 0.8 mg tablet Pain History Pain Location Full Body Front + Back: 1. 2. Pain Intensity [facility] Combined Pain Scale: 0 - No Pain Pain scale - at its best (0-10): 0 Pain scale - at its worst (0-10): 10 Patient History Medical History (Updated 04/12/21 @ 14:29 by Alicia Luque DO) Metastatic breast cancer Social History Smoking Status: Never smoker Hx Alcohol Use: No Hx Substance Use: No Preferred Language: Mohawk Communication Ability: Effective Concert Singer Required: No Beliefs That Will Affect Care: None Current Living Situation: Spouse Feels Safe at Home: Yes Assistive Devices: None Physical Exam Physical Exam: Constitutional: Well-developed, well-nourished, thin Psych: Awake, alert, and oriented 3 with normal affect and mood. Recent memory appears grossly intact, accompanied by her on today's examination Eyes: Pupils are equally round and reactive to light with normal size pupils, eyelids appear normal Ear, nose, mouth, and throat: Moist nasal and oral membranes, lips and tongues appear normal, no external ear abnormalities are noted Neck: The trachea is midline without deviation and no thyromegaly is noted Respiratory: Normal respiratory effort without distress, no audible wheezes or rhonchi CV: Normal S1 and S2 Chest: Deferred Musculoskeletal: Head is normocephalic and atraumatic, gait not observed. She lies completely still within the hospital bed during the entire examination. The patient has notable pain with any movement. Cervical: Lordotic curve: Normal Range of motion is normal with extension, flexion, side-bending, rotation Tenderness: mild-moderately tender over the axial midline R>L Strength: Strength is equal bilaterally with 5 out of 5 strength in all planes Sensation of upper extremities: Intact bilaterally Deep tendon reflexes: Rated at 2+ in bilateral biceps, triceps, brachial radialis Myofascial spasm:Marked right trapezius/supraspinatus spasm. a few discrete trigger points noted Lumbar: Lordotic curve: Normal Range of motion is decreased in all planes Tenderness:moderately tender over the axial midline left>right Facet provocation: Negative bilaterally Strength: Strength is equal bilaterally with 5 out of 5 strength in all planes Sensation of lower extremities: Intact bilaterally Deep tendon reflexes: Rated at 1+ in bilateral L4 and S1 Myofascial spasm: moderate lumbar spasm. No discrete trigger points noted Greater trochanters: Nontender bilaterally Sacroiliac joints: Nontender bilaterally Pathologic reflexes noted: None Skin: No rashes, lesions, ulcers, or induration noted Neuro: No nystagmus noted, the tongue is midline, the patient is able to rotate their head bilaterally : Deferred Results (Pain Clinic) Diagnostic Review Radiology Findings: 04/09/21 CT SCAN OF THE ABDOMEN AND PELVIS WITH IV CONTRAST CLINICAL HISTORY: Metastatic breast cancer. Generalized abdominal pain. COMPARISON STUDY: Chest CT dated 03/24/2021. TECHNIQUE: Following the IV administration of 95 cc of Optiray 320, CT scan of the abdomen and pelvis is performed from the lung bases to the proximal femora. Images are reviewed in the axial, sagittal, and coronal planes. IV contrast was administered without complication. A dose lowering technique was utilized adhering to the principles of ALARA. FINDINGS: Lung bases: The heart is normal in size and without pericardial effusion. There is dependent atelectasis. A 6 cm groundglass nodule at the right lung base seen on image #29 is new from previous and likely inflammatory. Marked dermal thickening is noted in the right breast. Liver: The contrast-enhanced liver is normal in size, contour, and attenuation. There is no intrahepatic biliary ductal dilatation. The hepatic veins and portal veins are patent. An 11 mm indeterminate hypodensity is seen in the subcapsular right lobe on image #78. Gallbladder: Unremarkable. Spleen: Normal in size and attenuation. Pancreas: Unremarkable. Adrenal glands: Unremarkable. Kidneys: The contrast enhanced kidneys are normal in size and without hydro nephrosis. The kidneys enhance symmetrically. There is a 7 mm nonobstructing left renal calculus. Abdominal vasculature: The abdominal aorta is normal in course and caliber. Bowel: There is rectosigmoid fecal retention and moderate constipation. No bowel obstruction is seen. The appendix is well-visualized and normal. Peritoneum: There is no intraperitoneal free air or abdominal ascites. Lymphadenopathy: None. Pelvic viscera: The bladder is distended and otherwise normal in appearance. The uterus is enlarged and heterogeneous noting an intrauterine gestation. No adnexal lesion is seen. An involuting follicle is noted in the right ovary. Trace free fluid is seen in the cul-de-sac. Skeletal structures: There is evidence of extensive/diffuse osteolytic metastatic disease. Lesions are seen throughout the spine and bony pelvis. There are small bilateral rib lesions, as well as tiny lesions in the proximal femora. A architectural representative lesion in the right sacral ala on image #256 measures 2.6 cm, and a lesion within the right aspect of L4 measures 2.6 cm. There is no CT evidence of epidural extension of tumor. There is minimal pathologic superior endplate compression fracture of L4. IMPRESSION: 1. No acute infectious or inflammatory findings are seen in the abdomen or pelvis. 2. There is evidence of diffuse osteolytic metastatic disease as detailed above noting a minimal pathologic superior endplate compression fracture of L4. 3. Rectosigmoid fecal retention and moderate constipation. 4. Significant dermal thickening is noted in the right breast. 5. Left-sided nephrolithiasis. 6. The uterus is enlarged and heterogeneous noting an intrauterine gestation. 7. Trace nonspecific free fluid is seen in the cul-de-sac. 8. An 11 mm indeterminant hypodensity in the posterior right lobe of the liver likely represents a hemangioma but is incompletely characterized. 9. Additional findings as above. 04/09/21 CT OF THE CHEST WITH IV CONTRAST CLINICAL HISTORY: worsening pain metastatic breast cancer COMPARISON STUDY: Chest CT March 24, 2021. TECHNIQUE: Following IV administration of 95 mL of Optiray, helical axial images of the chest were obtained. Sagittal and coronal reconstructions were viewed as well as maximal intensity projections on an independent 3-D w orkstation. Automated exposure control was utilized for the study. A dose lowering technique was utilized adhering to the principles of ALARA. CT DOSE: 464.83 mGy.cm FINDINGS: Note is again made of asymmetric right breast skin thickening. There is a 2.2 cm irregular enhancing mass which contains a biopsy clip within the upper inner quadrant of the right breast. Several prominent right axillary lymph nodes are noted. A biopsy clip within right axilla is present. Size of the heart is normal. There is no pericardial effusion. No enlarged hilar or mediastinal lymph nodes are present. Central airways are patent. There is no consolidation to suggest pneumonia. No pneumothorax or pleural effusion is present. A 5 mm ground glass right lower lobe nodule on image 228 of [address] of March 24, 2021. Numerous lytic skeletal metastases are again noted. These have slightly progressed since CT of March 24, 2021. A T8 pathologic fracture is again noted. Although suboptimally assessed by CT, there is suggestion of slight epidural extension at the T10 level. There is no evidence for severe central canal stenosis. Mild to moderate multilevel neural foraminal stenosis due to metastases is present but this is also suboptimally assessed by CT. Abdomen and pelvis will be reported separately. An indeterminate 1 cm segment 7 hepatic lesion is present. IMPRESSION: 1. Extensive skeletal metastatic disease with slight progression since CT of March 24, 2021. Redemonstration of a T8 pathologic fracture and slight epidural extension at the T10 level. No severe central canal stenosis by CT. Mild to moderate multilevel neural foraminal stenosis due to skeletal lesions. 2. Right breast mass with asymmetric right breast skin thickening consistent with primary malignancy. 3. New 5 mm groundglass right lower lobe nodule and a 1 cm right hepatic lobe lesion. These are indeterminate.
[2021-04-12] MEDS ORDERED: HYDROmorphone PCA 30 MG/30 ML IV PRN (15:19)
[2021-04-12] MEDS: CHECK fentaNYL PATCH PLACEMENT SCH (16:24)
[2021-04-12] MEDS: SODIUM CHLORIDE 0.9% 1000ML 1,000 ML IV SCH (16:27)
--- NOTE | 2021-04-12 17:06 | OB/GYN Consultation ---
Date of Consultation April 12, 2021 Assessment & Plan (1) Metastatic breast cancer: Treatment of breast cancer per primary team, and is anticipated to involve aggressive chemotherapy, palliative radiation, and ongoing pain management efforts. (2) : The patient and her were not expecting to conceive, as she carries a diagnosis of PCOS which she thought made conception improbable. Unfortunately her occurred at the same time as a diagnosis of cancer, and treatment of her cancer necessarily involves chemotherapy that would be fetotoxic. The patient and made a decision several days ago that they wanted to pr ioritize Padmaja's cancer treatment, to include aggressive chemotherapy and also radiation as well as pain management. They were counseled that these treatments would be expected to damage or end her , and they accepted that consequence. She requested a termination of in accordance with her treatment priorities. Discussion has since occurred with respect to whether she would be able to relocate to [facility]'s family planning practice for that to occur with Dr. Yanez, but her bony metastatic disease has made Padmaja medically unstable for transport. Therefore, the procedure will be offered here. I met with Padmaja and her today, in the radiation oncology suite, where she had just completed treatment planning for palliative radiation. We discuss ed the current situation of her cancer and her early . She and her were both present for the entire discussion, and although she is using narcotics for pain control, she was alert and asking appropriate questions through the discussion. Further, our discussion was in line with the statements and wishes she has expressed consistently since her admission. She still wishes to undergo termination of . We discussed the surgical procedure of Dilation and Evacuation which is available to her, and we discussed medical termination as being a less- recommended option given her gestational age and her comorbidities. She understands the risks of pain, bleeding, infection, regret, internal organ injury, impacts on future fertility and even associated with the D&E proc edure. She was given notice of the availability of resources for women considering termination and of the 24 hour waiting period as required. All of the questions that she and her wished to ask were answered to their satisfaction, and consent was signed by both of them with me today at 13:01pm. We plan to proceed with D&E tomorrow. After the procedure the current plan is for her to move directly to her first palliative radiation treatment. History of Present Illness Attending Physician: Alex Rosa DO History of Present Illness Padmaja Burris is a 35yo with a SIUP at 8w6d today (dated by US 04/09/21 which is also the last known date of definite viability). She is unfortunately suffering from widely metastatic triple-positive breast cancer, diagnosed early March. Based on chart review, her initial presentation was for chest pain and positive test. A CT scan intended to r/o PE resulted in finding lytic lesions of the bone throughout her spine. Subsequent workup revealed breast cancer as her primary, and she has since experienced rapid worsening of her pain, which is now intractable even to high dose narcotics. She is currently admitted for pain management and treatment planning. Allergies Allergy/AdvReac Type Severity Reaction Status Date / Time No Known Allergies Allergy Unverified 03/31/21 15:43 Home Medications Medication Instructions Recorded Confirmed Type oxycodone 5 mg tablet 5 mg PO Q6H PRN #16 tab 03/31/21 Rx vitamin-ferrous sulfate 1 tab PO DAILY 03/31/21 03/31/21 History 27 mg iron-folic acid 0.8 mg tablet Patient History Medical History Metastatic breast cancer Social History Smoking Status: Never smoker Hx Alcohol Use: No Hx Substance Use: No Preferred Language: [place] Communication Ability: Effective Senior Windows Engineer Required: No Beliefs That Will Affect Care: None Current Living Situation: Spouse Feels Safe at Home: Yes Assistive Devices: None Physical Exam Physical Exam: Patient is lying in a hospital bed, resting supine. Thin habitus. Alert, fluent speech, oriented, non-distressed at rest. Resp rate 14 and no difficulty breathing, no cough. EtCO2 monitor in place. Pulse 90, no edema in hands. Able to lift her arm to sign forms that I hold for her; hesitant to move other than to do this, due to pain. No further exam undertaken due to patient pain with any repositioning, however imaging reviewed and patient's chart reviewed to supplement my own findings. Results & Data ([facility]) Vital Signs (Past 12 Hours) Vital Signs Temp Pulse Resp BP Pulse Ox 04/12/21 15:03 98.1 F 90 12 102/64 95 04/12/21 11:17 97.5 F L 81 12 99/63 L 97 04/12/21 07:31 97.9 F 74 12 109/69 98 (1) Weeks of gestation: 8 weeks Qualified Code(s): Z3A.08 - 8 weeks gestation of
--- NOTE | 2021-04-12 18:31 | Billing Data ---
Date of Service April 12, 2021 Coding Level of Care Code 73673 Subseq Hosp Care Lvl 3
[2021-04-13] MEDS: CHECK fentaNYL PATCH PLACEMENT SCH ×4 (00:26→23:05)
[2021-04-13] MEDS: ACETAMINOPHEN 1,000 MG/100 ML VIAL IV SCH ×3 (03:16→18:13)
[2021-04-13] MEDS: KETOROLAC TROMETHAMINE 15 MG/ML VIAL IV SCH ×4 (03:17→20:33)
--- NOTE | 2021-04-13 06:57 | Hospitalist Progress Note ---
Date of Service April 13, 2021 Assessment & Plan (1) Metastatic breast cancer: Plan: Patient is a 35 year old female at 8 weeks with history of recently diagnosed triple positive metastatic breast cancer with lytic lesions to spine and hip admitted for intractable back and neck pain. Since admission patients patient has migrated primarily to her lumbar spine in addition to her L hip. Despite a multitude of pain management medications she has had difficulty fi nding comfort regardless of position. Metastatic Breast Cancer with Lytic Lesions -Patient has decided to pursue elective for medical necessity in order to undergo aggressive cancer treatment. -She understands that many of the treatment options in regards to both control of her pain, treatment of her cancer, staging of her disease may be harmful to her unborn child and accepts the risks involved as she is planning on elective . -Pain management has been difficult with PRN medications of Tylenol, Toradol, Morphine, Dilaudid, and Lidocaine patches -Trialed Fentanyl patch 12mcg on 04/10/21 for roughly 3 hours at which point patient noted her hip pain was too excruciating and was hopeful for something else -Started on Dilaudid SNOW PLOW TRACTOR OPERATOR at 0.5mg/hr in addition to 0.25mg pushes q15min -- overnight the continuous dilaudid was discontinued -Dosing of PRN pushes increased to 0.35mg [id number] -Morphine and Dilaudid pushes held at this time due to SNOW PLOW TRACTOR OPERATOR -Pain Management consulted for assistance of above as well. -Recommend Decadron 30mg x2 days followed by 5 day taper for reduction of periosteal edema -After discussion with pharmacy, recent evidence shows that 20mg may be sufficient for pain. Received Decadron 20mg IV QD x2 days,will continue with 5 day taper starting 04/13 -Gabapentin 300mg TID as tolerated for neuropathic pain - patient would like to hold off on this for now -Continued titrate of IV SNOW PLOW TRACTOR OPERATOR hydromorphone as needed -- Can consider SNOW PLOW TRACTOR OPERATOR push 0.5mg q30min or consider bolus 1mg Dilaudid followed by SNOW PLOW TRACTOR OPERATOR 0.5mg q30min - Started scheduled APAP and Toradol as well -Unfortunately patient has been unable have the MRI of her Cervical, Thoracic, and Lumbar spine -- will reattempt as able with request made for more staff to move her and will give 1mg Dilaudid 30 min prior to attempting -If patient continues to be unable to tolerate MRI, would consider CT of the cervical spine to ensure no cord compression -Pre-chemotherapy Echocardiogram ordered with EF 60-65% -Case has been discussed extensively with OBGYN and Oncology -Oncology following, recommending at this time palliative radiation therapy to help with pain of the hip -- initially planned for 04/12 but now postponed until after termination of as below -Discussed chemotherapy which at this time would likely be deferred until after the termination of the . -Port placed in L internal jugular vein on 04/10/21 by General Surgery -Had plans for bone biopsy on 04/12/21 -- however, patient preferring not to undergo at this time so will hold off and focus on pain control as above and plans as below -Transvaginal US notable for single live intrauterine estimated gestational age 8 weeks 3 days in addition to subchorionic hemorrhage. -Patient noting that she would like to pursue elective . -She would want to pursue therapeutic treatment for both her cancer and her pain control, knowing any teratogenic effects it would have on the fetus at this time as she is planning on elective termination. -OBGYN Dr. Yanez at [facility] has been following patients case as well who feels that as this is a medically necessary situation, would be able to assist the patient in regards to elective . She plans on reaching out to the patient directly in regards to possible phone/telemedicine appointment as she would have difficulty with transport to [facility] with her pain as is. -If able to manage patient's pain adequately on an outpatient regiment, patient would likely benefit from evaluation there for termination of the . -After discussion by hospital administration, decision was made to proceed with medically indicated termination of -- OBGYN consented 04/12 13:01 f ollowed by 24-hour wait period, plan to perform procedure 04/13 once wait period has been completed Diet: Regular Dispo: Med/Surg Dvt ppx: Lovenox Code: Full Admission and Anticipated Discharge Date Admission Date: April 09, 2021 Supervising Physician Co-Signing Physician Notes I personally examined the patient and verified all esposito points of history and exam, discussed case, and agree with decision making with Dr Chavarria has been afraid to move too much due to pain. dilauded makes her sleepy vitals noted nad heent nc at mmm breathing unlabored no accessory muscles good effort Metastatic breast cancer/intractable paincontinue to titrate pain control. Initiating cancer treatments. otherwise as above Subjective No acute events overnight. Continues with overall well-controlled pain as long as she doesn't move too much. She mentions wanting to try MRI today as yesterday she was unable to. However, discussed that she does have the OB procedure and likely radiation thereafter so may be better to rest prior. Review of Systems Review of Systems: Denies fever, chills, nausea, vomiting, chest pain, palpitations, shortness of breath, cough Physical Exam Constitutional: + ill appearing, + disheveled and cooperative Respiratory: normal respiratory effort, lungs clear to auscultation Cardiovascular: RRR, no murmur, no edema Results & Data Results & Data ([facility]) Vital Signs (Past 12 Hours) Vital Signs Temp Pulse Resp BP Pulse Ox 04/13/21 04:00 36.8 C 71 16 99/68 L 97 04/13/21 00:23 36.7 C 68 14 97/61 L 97 04/12/21 19:30 36.9 C 74 20 99/63 L 97 Resident Activity Tracking Resident Involvement: Resident Care Provided Care Provided: Adult Hospital Medicine
[2021-04-13] MEDS ORDERED: DEXAMETHASONE IV SCH (07:45)
[2021-04-13] MEDS: DULoxetine HCL 30 MG CAP PO SCH (08:35)
[2021-04-13] MEDS: CYCLOBENZAPRINE HCL 10 MG TAB PO SCH ×3 (08:35→20:32)
[2021-04-13] MEDS: DOCUSATE SODIUM 100 MG CAP PO SCH ×2 (08:35→20:32)
[2021-04-13] MEDS: POLYETHYLENE (MIRALAX) 17 GM PACK PO SCH (08:35)
[2021-04-13] MEDS: LIDOCAINE 5% 1 PATCH TD SCH (08:35)
[2021-04-13] MEDS ORDERED: oxyCODONE HCL IR 5 MG TAB (IMMEDIATE RELEASE) PO PRN (08:37)
--- NOTE | 2021-04-13 08:53 | Pain Management Progress Note ---
Date of Service April 13, 2021 Assessment & Plan (1) Metastatic breast cancer: Plan: 1. Recommend increasing Fentanyl dosage to 25 mcg every 72 hour patch for basal pain control. 2. Ordered Oxycodone 5mg x 4 hours if needed for pain relief. 3. Dilaudid JD EDWARDS CONSULTANT for breakthrough pain. Consider switching from Dilaudid JD EDWARDS CONSULTANT tomorrow onto breakthrough IV. 4. Recommend Cymbalta, Toradol, Lidoderm patch, Flexeril. 5. Continue bowel regimen Colace and MiraLAX with backup Relistor. Admission and Anticipated Discharge Date Admission Date: April 09, 2021 Subjective This is a 35 year old female with triple positive breast cancer with metastasis to the low back and hip region. Yesterday she was placed on Fentanyl Patch and Cymbalta and advised to use the Dilaudid JD EDWARDS CONSULTANT as needed. She is reporting pain relief in her neck and shoulders since starting the Fentanyl and Cymbalta. She is having pain and discomfort in her lower abdomen. Patient has not had a bowel movement in 4 days. The low back pain is aggravated with any movement. The Dilaudid JD EDWARDS CONSULTANT has administered 0.5mg yesterday. The JD EDWARDS CONSULTANT is causing drowsiness and as she is only in pain with movement she does not find it useful. She was able to move around a little amount for radiation. Has still refused MRI in fear of the amount of discomfort. Pain Assessment Pain Assessment Full Body Front + Back: 1. 2. 3. Physical Exam Physical Exam: GENERAL: This is a thin 35 year old female. Does not appear in any acute distress. is at bedside. HEAD/FACE: Normocephalic and atraumatic. EYES: No drainage or conjunctival injection. ENT: Nose without bleeding or discharge. Oral mucosa moist. NECK: Full ROM without apparent pain. No swelling or masses noted. RESPIRATORY: Patient with unlabored breathing. No signs of respiratory distress. CHEST/AXILLA: Chest movement symmetrical. No deformities noted. ABDOMEN/GI: No distension SKIN: Bradley, warm and dry. No rash noted. MS/EXTREMITY: No swelling, no deformities. Moving extremities appropriately. NEURO: Alert and appears oriented. Speech is fluent. Cranial Nerves are grossly intact. PSYCH: Alert, pleasant, affect is calm
[2021-04-13] MEDS: dexAMETHasone 15 MG in DEXTROSE 5% 25 ML IV SCH (09:04)
[2021-04-13] MEDS: fentaNYL 25 MCG/HR TDSY TD SCH (09:44)
[2021-04-13] MEDS: ENOXAPARIN INJ 40 MG/0.4 ML SYR SQ SCH (09:51)
--- NOTE | 2021-04-13 10:16 | Anesthesiology Consultation ---
Date of Service April 13, 2021 Assessment & Plan (1) Encounter for pre-operative examination: Chart Review Chart Review: Acceptable Risk for Surgery and Patient NOT seen in Pre Admission Testing Consults Requested none History Surgery Operation Date: 04/10/21 07:30 Proposed Procedures p Placement of Left A-Port Catheter - Jose Luis Alaniz MD Operation Date: 04/13/21 13:30 Proposed Procedures p Dilation and Evacuation - Jasmin Gonsalez MD Height/Weight Height: 5 ft 7.2 in Weight: 51.8 kg Allergies Allergy/AdvReac Type Severity Reaction Status Date / Time No Known Allergies Allergy Unverified 03/31/21 15:43 Medications Home Medications Medication Instructions Recorded Confirmed Last Taken oxycodone 5 mg tablet 5 mg PO Q6H PRN #16 tab 03/31/21 Unknown vitamin-ferrous sulfate 1 tab PO DAILY 03/31/21 03/31/21 03/31/21 27 mg iron-folic acid 0.8 mg tablet Active Medications Generic Name Dose Route Start Last Admin Trade Name Freq PRN Reason Stop Dose Admin Cyclobenzaprine HCl 10 mg 04/09/21 21:00 04/13/21 08:35 Cyclobenzaprine Hcl 10 Mg Tab PO 05/09/21 20:59 10 mg TID KRISTY Administration Docusate Sodium 100 mg 04/12/21 09:00 04/13/21 08:35 Docusate Sodium 100 Mg Cap PO 05/12/21 08:59 100 mg BID KRISTY Administration Duloxetine HCl 30 mg 04/12/21 09:00 04/13/21 08:35 Duloxetine Hcl 30 Mg Cap PO 05/12/21 08:59 30 mg QAM KRISTY Administration Enoxaparin Sodium 40 mg 04/11/21 11:00 04/13/21 09:51 Enoxaparin Inj 40 Mg/0.4 Ml Syr SQ 05/11/21 10:59 Not Given Q24H KRISTY Fentanyl 25 mcg 04/13/21 09:45 04/13/21 09:44 Fentanyl 25 Mcg/Hr Tdsy TD 04/27/21 09:44 25 mcg Q3D@0945 KRISTY Administration Hydromorphone HCl 0 mg 04/12/21 15:19 04/13/21 07:27 Hydromorphone Solution Design Engineer 30 Mg/30 Ml IV 04/24/21 17:41 0.5 mg PRN PRN Administration DENTAL INSURANCE BILLER Pain Titration Protocol Sodium Chloride 1,000 mls @ 15 mls/hr 04/10/21 17:45 04/12/21 16:27 Nss 1000ml IV 04/24/21 17:43 15 mls/hr .Q24H KRISTY Administration Acetaminophen 1,000 mg in 100 mls @ 400 mls/hr 04/12/21 10:00 04/13/21 09:42 Ofirmev IV 04/15/21 09:59 400 mls/hr Q8H KRISTY Administration Dexamethasone 15 mg/ Dextrose 28.75 mls @ 0.833 mls/min 04/13/21 08:00 04/13/21 09:47 IV 04/14/21 21:44 Infused Q24H KRISTY Infusion Ketorolac Tromethamine 10 mg 04/12/21 10:00 04/13/21 09:52 Ketorolac Tromethamine 15 Mg/Ml Vial IV 04/17/21 09:59 Not Given Q6H KRISTY Lidocaine 1 patch 04/09/21 16:30 04/13/21 08:35 Lidocaine 5% 1 Patch TD 05/09/21 16:29 1 patch QAM KRISTY Administration Miscellaneous 1 ea 04/09/21 23:00 04/12/21 21:07 Remove Lidoderm Patch N/A 05/09/21 22:59 1 ea DAILY@2100 KRISTY Administration Miscellaneous 1 ea 04/13/21 09:44 04/13/21 09:50 Fentanyl Patch Remove & Waste N/A 05/13/21 09:43 1 ea Q72H KRISTY Administration Morphine Sulfate 2 mg 04/09/21 15:57 04/10/21 05:18 Morphine Sulfate 2 Mg/Ml Carp IV 04/23/21 15:56 2 mg Q30M PRN Administration Moderate Pain Ondansetron HCl 4 mg 04/09/21 15:57 04/12/21 19:28 Ondansetron Inj 2 Mg/Ml 2 Ml Vial IV 05/09/21 15:56 4 mg Q6H PRN Administration Nausea Polyethylene Glycol 17 gm 04/12/21 09:00 04/13/21 08:35 Polyethylene (Miralax) 17 Gm Pack PO 05/12/21 08:59 Not Given DAILY KRISTY NPO Date Last Intake of Fluids: 04/09/21 Time Last Intake of Fluids: 22:00 Date Last Intake of Solids: 04/09/21 Time Last Intake of Solids: 18:00 Past Medical History Medical History Metastatic breast cancer Social History Smoking Status: Never smoker Hx Alcohol Use: No Hx Substance Use: No Physical Exam Vital Signs Last Vital Signs Temp 36.8 C 04/13/21 04:00 Pulse 71 04/13/21 04:00 Resp 16 04/13/21 04:00 BP 99/68 L 04/13/21 04:00 Pulse Ox 97 04/13/21 04:00 Testing Laboratory Results 04/12/21 06:35 04/12/21 06:35 Urine Color Yellow 04/09/21 21:15 Urine Appearance Cloudy (Clear) A 04/09/21 21:15 Urine pH 7.0 (4.5-7.5) 04/09/21 21:15 Ur Specific [place] > 1.045 (1.000-1.030) H 04/09/21 21:15 Urine Protein Negative (Negative) 04/09/21 21:15 Urine Glucose (UA) Negative (Negative) 04/09/21 21:15 Urine Ketones Negative (Negative) 04/09/21 21:15 Urine Nitrite Negative (Negative) 04/09/21 21:15 Ur Leukocyte Esterase Negative (Negative) 04/09/21 21:15 Urine WBC (Auto) 1-5 /hpf (0-5) 04/09/21 21:15 Urine RBC (Auto) 0-4 /hpf (0-4) 04/09/21 21:15 U Hyaline Cast (Auto) 1-5 /lpf (0-5) 04/09/21 21:15 U Epithel Cells (Auto) >30 /lpf (0-5) H 04/09/21 21:15 Urine Bacteria (Auto) 1+ (Negative) H 04/09/21 21:15 Blood Type B Positive 04/09/21 15:43 Antibody Screen NEGATIVE 04/09/21 15:43 04/09/21 21:15 Urine Culture - Final Urine,Clean Catch More than three types of organisms present, all moderate counts mixed probable skin ayan. No further identifications or sensitivities to follow.
[2021-04-13] MEDS ORDERED: ROCURONIUM BROMIDE 10 MG/ML 5 ML VIAL IV ONE (10:41)
[2021-04-13] MEDS ORDERED: ONDANSETRON INJ 2 MG/ML 2 ML VIAL IV ONE (10:41)
[2021-04-13] MEDS ORDERED: fentaNYL citrate 100 MCG/2 ML VIAL IV ONE (10:41)
[2021-04-13] MEDS ORDERED: LIDOCAINE 2% 2 ML VIAL/AMP(20MG/ML) INFIL ONE (10:41)
[2021-04-13] MEDS ORDERED: MIDAZOLAM HCL 1 MG/ML 2ML VIAL IV ONE (10:41)
[2021-04-13] MEDS ORDERED: DEXAMETHASONE SOD INJ 4 MG/ML VIAL IV ONE (10:41)
[2021-04-13] MEDS ORDERED: PROPOFOL IV EMULSION 10 MG/ML 20 ML VIAL IV ONE (10:41)
[2021-04-13] MEDS ORDERED: SUCCINYLCHOLINE CHLORIDE 20 MG/ML 10 ML VIAL IV ONE (10:41)
--- NOTE | 2021-04-13 13:20 | History & Physical Bridge Note ---
Date of Service April 13, 2021 History & Physical Bridge Note I have examined the patient, reviewed the History & Physical and in the interval since the performance of the History & Physical I have noted the following changes of clinical significance: no changes noted. I met the patient and in her room this morning at approximately 9am and we had a lengthy discussion confirming her choice. We discussed her emotions regarding her situation, offered support for grief should she wish to avail herself of those services, and I assured her that any response she may feel during or after this process ranging from a very practical one to a very emotionally complicated one are all completely normal. We discussed her questions regarding fertility, and the issues of pre-treatment egg freezing (not a likely practical option for her given the required time to cycle and harvest), and her questions about future . It is technically possible for her to carry in her uterus, and the D&E procedure itself does not change her ability to carry a barring a rare occurrence such as intracavitary scarring. However carrying a in the future would require her to have survived completion of her chemo, and would likely require supplemental hormones and/or an egg donor as her ovarian tissue will be affected by the radiation and chemo that she is now to begin receiving. While I believe Padmaja realizes that future fertility is an unlikely event for her given her prognosis, it is important that she be given the space to explore her questions about fertility with factual information. We took the time to help her understand the realities of future fertility should she be in a pos ition to pursue it. I met her and her again in pre-op today at 13:10 and briefly re-confirmed consent, and ascertained that she had no further questions. We discussed that we are planning to induce anesthesia and then transfer the patient to the OR bed, with positioning to be done in gentle and limited ways out of consideration for her spinal lesions, but that we do anticipate the procedure may temporarily flare her pain to some degree. She understands.
[2021-04-13] MEDS ORDERED: ONDANSETRON INJ 2 MG/ML 2 ML VIAL IV PRN (13:28)
[2021-04-13] MEDS ORDERED: ATROPINE SULFATE 0.1 MG/ML 10ML SYR IV PRN (13:28)
[2021-04-13] MEDS ORDERED: ePHEDrine sulfate 50 MG/ML AMP IV PRN (13:28)
[2021-04-13] MEDS ORDERED: PROMETHAZINE HCL 12.5 MG in SODIUM CHLORIDE 0.9% 50 ML IV PRN (13:28)
[2021-04-13] MEDS ORDERED: fentaNYL citrate 100 MCG/2 ML VIAL IV PRN (13:28)
--- NOTE | 2021-04-13 14:17 | Operative Report ---
PG Post Operative Report Pre & Post Diagnosis Operation Date: 04/10/21 07:30 Pre-Op Diagnosis: at 8w6d Widely metastatic breast cancer Post-Op Diagnosis: Same I identified the patient and participated in the time-out.: Yes Procedure Operation Date: 04/10/21 07:30 Actual Procedures Dilation and Evacuation Surgeon Jasmin Gonsalez MD Blackjack Supervisor None Estimated Blood Loss 100 Findings Consistent with Post-Op Diagnosis Specimens Products of conception Drains Martinez was in place on arrival to OR, and remains during / after operation Anesthesia Type General Complications None Disposition Accompanied Patient To Recovery: Yes Disposition: Recovery Room (Will be moved to Radiation Oncology ) Indications Therapeutic in accordance with patient's request to prioritize treatment of cancer Description of Procedure The patient was induced under general anesthesia on her hospital bed, then carefully transferred onto the OR table. She was gently placed in a very mild / low lithotomy position using yellofin stirrups, with just enough room between the legs for the surgeon. The perineum and vagina were prepped with betadine, during which a thick and copious yellow-white clumpy vaginal discharge was encountered, possibly consistent with yeast vaginitis. No bleeding was present at the start of procedure. The patient was draped in standard sterile fashion, and a hard time out was taken prior to proceeding. Bimanual exam was performed showing a 9-10cm uterus. A martinez catheter was in place as it had been since the patient's arrival. Delvalle and weighted specula were used to visualize the cervix which was grasped on its anterior lip with a tenaculum. The cervix was serially dilated to 31fr, after which a 10mm curette was introduced gently to the fundus. Suction tubing was attached and suction activated until the suction reached the "green zone" on the D&E machine. Twisting and withdrawal through 3 passes was used to evacuate all material from the uterus. A sharp curette was used to scrape the endometrium until good cry was felt on all pichardo. One final suction pass removed any remaining clot and debris. All instruments were then removed and the uterus was confirmed to be well contracted with minimal bleeding. The p atient was transferred to PACU in good condition. I attest to the content of the Intraoperative Record and any orders documented therein. Any exceptions are noted below. BENEFITS CONSULTING ANALYST Minor Procedure Codes D&E 27889 D&E 1st Tri ([facility])
[2021-04-13] MEDS ORDERED: IRON SUCROSE 200 MG in 0.9 % SODIUM CHLORIDE 100 ML IV ONE (15:00)
--- NOTE | 2021-04-13 15:08 | Anesthesiology Progress Note ---
Date of Service April 13, 2021 Anesthesia Post Procedure Vital Signs Vital Signs: Temp Pulse Pulse Resp BP Pulse Ox 04/13/21 14:55 76 14 118/81 100 04/13/21 14:45 72 12 118/80 100 04/13/21 14:35 71 16 108/69 100 04/13/21 14:29 37 C 69 12 99/63 L 100 04/13/21 13:01 36.8 C 73 16 128/88 98 04/13/21 10:26 36.6 C 59 L 13 105/68 96 04/13/21 04:00 36.8 C 71 16 99/68 L 97 04/13/21 00:23 36.7 C 68 14 97/61 L 97 04/12/21 19:30 36.9 C 74 20 99/63 L 97 Pain Intensity Generalized: Pain Intensity: 10 Back: Pain Intensity: 0 Transfer of Care Handoff Completed per policy Notes Mental Status: alert / awake / arousable and participated in evaluation Patient Amnestic to Procedure: Yes Nausea / Vomiting: adequately controlled Pain: adequately controlled Airway Patency, RR, SpO2: stable & adequate BP & HR: stable & adequate Hydration State: stable & adequate Anesthetic Complications: no major complications apparent and Pt Satisfied with anesthetic care
--- NOTE | 2021-04-13 18:15 | Billing Data ---
Date of Service April 13, 2021 Coding Level of Care Code 12718 Subseq Hosp Care Lvl 3
[2021-04-13] MEDS: SODIUM CHLORIDE 0.9% 1000ML 1,000 ML IV SCH (18:16)
[2021-04-13] MEDS: GABAPENTIN 300 MG CAP PO SCH (20:33)
[2021-04-14] MEDS: ACETAMINOPHEN 1,000 MG/100 ML VIAL IV SCH ×4 (03:44→21:47)
[2021-04-14] MEDS: KETOROLAC TROMETHAMINE 15 MG/ML VIAL IV SCH ×4 (03:45→21:48)
[2021-04-14 06:13] LABS: Eosinophils # (auto) 0.11 K/uL (0-0.5); Eosinophils % (auto) 1.2 %; Hematocrit (blood only) 24.1 % (37-47); Hemoglobin 7.8 g/dL (12.0-16.0); Immature Granulocytes # (auto) 0.06 K/uL (0.00-0.02); Immature Granulocytes % (auto) 0.7 %; Lymphocytes # (auto) 1.28 K/uL (1.2-3.4); Lymphocytes % (auto) 14.3 %; Mean Corpuscular Hemoglobin 27.2 pg (25-34); Mean Corpuscular Hgb Conc 32.4 g/dL (32-36); Mean Platelet Volume 8.7 fL (7.4-10.4); Monocytes # (auto) 0.73 K/uL (0.11-0.59); Monocytes % (auto) 8.2 %; Neutrophils # (auto) 6.76 K/uL (1.4-6.5); Neutrophils % (auto) 75.6 %; Platelet Count 214 K/uL (130-400); RDW Coefficient of Variation 16.8 % (11.5-14.5); RDW Standard Deviation 51.5 fL (36.4-46.3); Red Blood Count 2.87 M/uL (4.2-5.4); White Blood Count 8.94 K/uL (4.8-10.8)
[2021-04-14 06:47] LABS: RBC Morphology Unremarkable
--- NOTE | 2021-04-14 07:10 | Obstetrical Progress Note ---
Date of Service April 14, 2021 Assessment & Plan (1) Metastatic breast cancer: Plan: Treatment of breast cancer per primary team. (2) : Plan: POD#1 from uncomplicated D&E with uneventful initial post op period. By report of nursing staff overnight there has been hardly any vaginal bleeding at all. The patient's pain has control has been consistently very good. Anemia is noted and is not unexpected, but patient is tolerating it well with a pulse of 68. I do see a note regarding giving Venofer to prepare the patient before the chemotherapy she is to receive, and leave decisions of IV iron vs RBC transfusion vs neither to her primary team. At this time the SCREEN PRINTING LOADER UNLOADER service will sign off of Padmaja's care. We remain available if needed and wish her the best in her treatment course. Admission and Anticipated Discharge Date Admission Date: April 09, 2021 Subjective Patient and both sound asleep when I arrived in the room at 0700 this AM. They were not awakened; instead I spoke with nursing staff regarding the events overnight, and reviewed her chart. Physical Exam Physical Exam: Sleeping comfortably. Results & Data ([facility]) Vital Signs (Past 12 Hours) Vital Signs Temp Pulse Resp BP Pulse Ox 04/14/21 03:43 97.5 F L 68 12 99/65 L 95 04/14/21 00:30 98.1 F 72 16 99/68 L 97 04/13/21 20:28 98.1 F 83 14 97/60 L 96 Laboratory Results Laboratory Results - last 24 hr 04/14/21 04/14/21 06:03 06:03 WBC 8.94 RBC 2.87 L Hgb 7.8 L Hct 24.1 L MCV 84.0 MCH 27.2 MCHC 32.4 RDW Std Deviation 51.5 H RDW Coeff of Abigail 16.8 H Plt Count 214 MPV 8.7 Immature Gran % (Auto) 0.7 Neut % (Auto) 75.6 Lymph % (Auto) 14.3 [place] % (Auto) 8.2 Eos % (Auto) 1.2 Baso % (Auto) 0.0 Neut # (Auto) 6.76 H Lymph # (Auto) 1.28 [place] # (Auto) 0.73 H Eos # (Auto) 0.11 Baso # (Auto) 0.00 Immature Gran # (Auto) 0.06 H RBC Morphology Unremarkable Sodium Pending Potassium Pending Chloride Pending Carbon Dioxide Pending Anion Gap Pending BUN Pending Creatinine Pending Est Cr Clr Drug Dosing Pending Est GFR ( Amer) Pending Est GFR (Non-Af Amer) Pending BUN/Creatinine Ratio Pending Glucose Pending Calcium Pending PG Care Time/CCT Total # of Minutes Spent Total Time Spent with Patient: Total time spent is greater than 50% in coordination of care (as documented) at patient's floor/unit and/or counseling patient: Coding Level of Care Code None Diagnoses Metastatic breast cancer C50.919 Z3A.08 Weeks of gestation: 8 weeks (1) Weeks of gestation: 8 weeks Qualified Code(s): Z3A.08 - 8 weeks gestation of
[2021-04-14 07:24] LABS: Creatinine Clr Calc Pharmacy 63.6 ml/min; Est GFR (African American) 84.4 ml/min; Est GFR (Non-African American) 72.8 ml/min
[2021-04-14 07:25] LABS: BUN Creatinine Ratio 33.3 (10-20); Calcium 10.4 mg/dl (8.5-10.1); Potassium 4.7 mmol/L (3.5-5.1)
--- NOTE | 2021-04-14 07:35 | Hospitalist Progress Note ---
Date of Service April 14, 2021 Assessment & Plan (1) Metastatic breast cancer: Plan: Patient is a 35 year old female at 8 weeks with history of recently diagnosed triple positive metastatic breast cancer with lytic lesions to spine and hip admitted for intractable back and neck pain. Since admission patients patient has migrated primarily to her lumbar spine in addition to her L hip. Despite a multitude of pain management medications she has had difficulty fi nding comfort regardless of position. Metastatic Breast Cancer with Lytic Lesions -Patient has decided to pursue elective for medical necessity in order to undergo aggressive cancer treatment. -She understands that many of the treatment options in regards to both control of her pain, treatment of her cancer, staging of her disease may be harmful to her unborn child and accepts the risks involved as she is planning on elective . -Pain management has been difficult with PRN medications of Tylenol, Toradol, Morphine, Dilaudid, and Lidocaine patches -Trialed Fentanyl patch 12mcg on 04/10/21 for roughly 3 hours at which point patient noted her hip pain was too excruciating and was hopeful for something else Dilaudid CEO AND PRESIDENT now discontinued per Pain Management -Pain Management consulted for assistance of above as well. 1. Continue Fentanyl 25 mcg every 72 hour patch for basal pain control. 2. Advised the patient to take Oxycodone 5mg x 4 hours if needed for additional pain relief. 3. Dilaudid CEO AND PRESIDENT was discontinued. I did order Dilaudid 0.5mg IV x 6 hours if needed for breakthrough pain. 4. Recommend Cymbalta, Toradol, Lidoderm patch, Flexeril. 5. Continue bowel regimen Colace and MiraLAX with backup Relistor. 6. Pain is controlled. Will sign off on the patient. Please call with any questions or concerns. - Started scheduled APAP and Toradol as well -Unfortunately patient has been unable have the MRI of her Cervical, Thoracic, and Lumbar spine -- will reattempt as able with request made for more staff to move her and will give 1mg Dilaudid 30 min prior to attempting -If patient continues to be unable to tolerate MRI, would consider CT of the cervical spine to ensure no cord compression -Pre-chemotherapy Echocardiogram ordered with EF 60-65% -Case has been discussed extensively with OBGYN and Oncology -Oncology following, recommending at this time palliative radiation therapy to help with pain of the hip -- plan to deliver palliative radiation therapy following termination of -Chemotherapy planned for 04/15 -- can be done as outpatient if able to be discharged but otherwise may do as inpatient -Port placed in L internal jugular vein on 04/10/21 by General Surgery -Had plans for bone biopsy on 04/12/21 -- however, patient preferring not to undergo at this time so will hold off and focus on pain control as above and plans as below -Transvaginal US notable for single live intrauterine estimated gestational age 8 weeks 3 days in addition to subchorionic hemorrhage. -Patient noting that she would like to pursue elective . -She would want to pursue therapeutic treatment for both her cancer and her pain control, knowing any teratogenic effects it would have on the fetus at this time as she is planning on elective termination. -OBGYN Dr. Yanez at [facility] has been following patients case as well who feels that as this is a medically necessary situation, would be able to assist the patient in regards to elective . She plans on reaching out to the patient directly in regards to possible phone/telemedicine appointment as she would have difficulty with transport to [facility] with her pain as is. -If able to manage patient's pain adequately on an outpatient regiment, patient would likely benefit from evaluation there for termination of the . -After discussion by hospital administration, decision was made to proceed with medically indicated termination of - D&E performed 04/13 without complications thus far -- continue to monitor for vaginal bleeding Anemia - In the setting of D&E procedure yesterday - Hemodynamically stable at this time - Given IV Venofer 04/13 due to iron deficiency per Heme/Onc recs to optimize prior to chemotherapy Diet: Regular Dispo: Med/Surg, planning for DC home once pain well controlled enough for patient to ambulate to bathroom and back Dvt ppx: Lovenox Code: Full Admission and Anticipated Discharge Date Admission Date: April 09, 2021 Supervising Physician Co-Signing Physician Notes I personally examined the patient and verified all esposito points of history and exam, discussed case, and agree with decision making with Dr Chavarria pain improved some. R leg/back a good deal better, able to move more. L still fairly painful w movement - but does seem at least a little better than last time she tried to move vitals noted nad heent nc at mmm breathing unlabored no accessory muscles good effort Metastatic breast cancer/intractable painpain improving. XRT seems to have helped. to start chemo tomorrow. goal for home largely is pain control enough for basics of self care at home otherwise as above Subjective No acute events overnight. Patient reports that her right-sided hip pain has essentially resolved after yesterday's radiation. However, she does continue to feel some left hip pain today. She was able to sit at the edge of her bed but has been unable to ambulate yet. Her appetite is good and she has been able to eat/drink without difficulties. She does not feel she'd be ready to go home at this time but is feeling closer. Review of Systems Review of Systems: Denies fever, chills, nausea, vomiting, chest pain, palpitations, shortness of breath, cough Physical Exam Constitutional: + ill appearing, + disheveled and cooperative Respiratory: normal respiratory effort, lungs clear to auscultation Cardiovascular: RRR, no murmur, no edema Results & Data Results & Data ([facility]) Vital Signs (Past 12 Hours) Vital Signs Temp Pulse Resp BP Pulse Ox 04/14/21 03:43 36.4 C L 68 12 99/65 L 95 04/14/21 00:30 36.7 C 72 16 99/68 L 97 04/13/21 20:28 36.7 C 83 14 97/60 L 96 Resident Activity Tracking Resident Involvement: Resident Care Provided Care Provided: Adult Hospital Medicine
[2021-04-14] MEDS: CHECK fentaNYL PATCH PLACEMENT SCH ×3 (08:14→22:49)
[2021-04-14] MEDS: POLYETHYLENE (MIRALAX) 17 GM PACK PO SCH (08:14)
[2021-04-14] MEDS: dexAMETHasone 15 MG in DEXTROSE 5% 25 ML IV SCH (08:15)
[2021-04-14] MEDS: LIDOCAINE 5% 1 PATCH TD SCH (08:19)
[2021-04-14] MEDS: CYCLOBENZAPRINE HCL 10 MG TAB PO SCH ×3 (08:19→21:46)
[2021-04-14] MEDS: GABAPENTIN 300 MG CAP PO SCH ×2 (08:19→21:47)
[2021-04-14] MEDS: DULoxetine HCL 30 MG CAP PO SCH (08:19)
[2021-04-14] MEDS: DOCUSATE SODIUM 100 MG CAP PO SCH ×2 (08:19→21:47)
[2021-04-14] MEDS ORDERED: HYDROmorphone INJ 0.5 MG/0.5 ML SYR IV PRN (08:22)
--- NOTE | 2021-04-14 08:31 | Pain Management Progress Note ---
Date of Service April 14, 2021 Assessment & Plan (1) Metastatic breast cancer: Plan: 1. Continue Fentanyl 25 mcg every 72 hour patch for basal pain control. 2. Advised the patient to take Oxycodone 5mg x 4 hours if needed for additional pain relief. 3. Dilaudid MANUFACTURING ENGINEER MACHINING was discontinued. I did order Dilaudid 0.5mg IV x 6 hours if needed for breakthrough pain. 4. Recommend Cymbalta, Toradol, Lidoderm patch, Flexeril. 5. Continue bowel regimen Colace and MiraLAX with backup Relistor. 6. Pain is controlled. Will sign off on the patient. Please call with any questions or concerns. Admission and Anticipated Discharge Date Admission Date: April 09, 2021 Subjective This is a 35 year old female with triple positive breast cancer with metastasis to the low back and hip region. Yesterday the Fentanyl Patch was increased to 25mcg. Remained on Cymbalta 30 mg daily and Dilaudid MANUFACTURING ENGINEER MACHINING as needed. She is reporting significant pain relief this morning. There is a mild ache in the left low back. She was able to sit up without any assistance. Has not yet tried to stand. Patient has not had a bowel movement in 5 days. There is no lower abdominal bloating or pain. She has been eating a little less than her usual during admission. The Dilaudid MANUFACTURING ENGINEER MACHINING has administered 2.0 mg in the last 24 hours. Has received another radiation treatment and had D&C performed yesterday. She states that her pain is improved to where she feels ready for MRI testing. Physical Exam Physical Exam: GENERAL: This is a thin 35 year old female. Does not appear in any acute distress. is at bedside. Sitting in the hospital bed, in no acute distress. HEAD/FACE: Normocephalic and atraumatic. EYES: No drainage or conjunctival injection. ENT: Nose without bleeding or discharge. Oral mucosa moist. NECK: Full ROM without apparent pain. No swelling or masses noted. RESPIRATORY: Patient with unlabored breathing. No signs of respiratory distress. CHEST/AXILLA: Chest movement symmetrical. No deformities noted. ABDOMEN/GI: No distension SKIN: [place], warm and dry. No rash noted. MS/EXTREMITY: No swelling, no deformities. Moving extremities appropriately. NEURO: Alert and appears oriented. Speech is fluent. Cranial Nerves are grossly intact. PSYCH: Alert, pleasant, affect is calm
[2021-04-14] MEDS ORDERED: ACETAMINOPHEN 500 MG TAB PO SCH (12:00)
[2021-04-14] MEDS ORDERED: GADOBUTROL 65ML VIAL IV ONE (12:32)
[2021-04-14] MEDS: ENOXAPARIN INJ 40 MG/0.4 ML SYR SQ SCH (13:25)
[2021-04-14] MEDS ORDERED: ACETAMINOPHEN 1,000 MG/100 ML VIAL IV PRN (13:33)
--- NOTE | 2021-04-14 13:52 | Magnetic Resonance Report ---
MRI OF THE THORACIC SPINE WITH AND WITHOUT CONTRAST CLINICAL HISTORY: Metastatic disease. COMPARISON: Thoracic spine radiographs March 31, 2021. Chest CT April 09, 2021. TECHNIQUE: Utilizing a 1.5 Emilie magnet and dedicated coil, multiplanar, multiecho imaging of the th oracic spine was performed before and after the intravenous administration of 5.5 cc. FINDINGS: Alignment of the thoracic spine is anatomic. Numerous foci of marrow replacement within the thoracic spine are noted. This is consistent with metastatic disease, as shown on chest CT of Februa 2021. Thoracic cord signal and caliber are normal. There is a pathologic fracture of T8 with 4 0% loss of vertebral body height. There is no retropulsion. No epidural extension of tumor is identif ied within the thoracic spine. A T6 pathologic fracture is better depicted on the MRI of the cervical spine which will be reported separately. No disc herniations are identified. Additional skeletal les ions are noted within the ribs as well as the sternum. Neural foramen are suboptimally assessed on th is exam but there is no evidence for severe neural foraminal stenosis. There may be mild multilevel n eural foraminal stenosis. There are small bilateral pleural effusions. IMPRESSION: 1. Extensive metastatic disease within the thoracic spine. T8 pathologic fracture with 40% loss of ve rtebral body height. No retropulsion. 2. No epidural extension of tumor identified within the thoracic canal. 3. Patent central canal. At most mild multilevel neural foraminal narrowing. 4. Normal thoracic cord signal and caliber. ACT 112: Negative or not required by law. Electronically signed by: Kurtis Peralta M.D. 04/14/2021 1:50 PM
--- NOTE | 2021-04-14 14:54 | Magnetic Resonance Report ---
MRI LUMBAR SPINE COMBO CLINICAL HISTORY: Breast cancer. COMPARISON STUDY: Abdominal CT dated 04/09/2021. TECHNIQUE: MRI of the lumbar spine is performed using various T1 and T2-weighted sequences in the axi al and sagittal planes. Contrast-enhanced sequences are acquired following the IV administration of 5 .5 cc of Gadavist. FINDINGS: There is evidence of extensive osseous metastatic disease as seen throughout the lumbar spi ne and the sacrum. This involves all the lumbar vertebral bodies as well as the posterior elements. T here is a mild acute to subacute pathologic compression fracture of L4. No retropulsed fragments are identified. Vertebral body height is otherwise maintained throughout the lumbar spine. Alignment is p reserved. The transverse and spinous processes appear intact. There is no spondylolysis. Intervertebral discs: Normal in height and signal intensity. Spinal cord and central canal: Imaged portions of the spinal cord show normal morphology and signal i ntensity. The conus medullaris terminates at the level of L1. There is no evidence of abnormal postco ntrast enhancement. L1-L2: Unremarkable. L2-L3: Unremarkable. L3-L4: Unremarkable. L4-L5: There is minimal posterior disc bulge. The central canal is clear. There is mild bilateral sub articular stenosis. No high-grade neural foraminal narrowing is identified. L5-S1: Unremarkable. Sacrum: There is evidence of multifocal sacral metastatic disease. Tarlov cysts are incidentally note d. Soft tissues: The paraspinous soft tissues are within normal limits. Retroperitoneum: The visualized retroperitoneal structures are grossly unremarkable but incompletely evaluated. Gravid uterus is partially visualized. IMPRESSION: 1. There is extensive osseous metastatic disease throughout the visualized lumbosacral spine and bony pelvis. 2. There is a mild acute to subacute pathologic compression fracture of L4. 3. No enhancing lesion is identified in the central canal, and there is no evidence of epidural exten zamzam of tumor. Dictated: 04/14/2021 1:38 PM Transcribed: 04/14/2021 2:07 PM [place] [id number] [email or web address] Electronically signed by: Leopoldo Regalado M.D. 04/14/2021 2:52 PM
--- NOTE | 2021-04-14 15:37 | Magnetic Resonance Report ---
MR cervical spine wo/w con CLINICAL HISTORY: History of breast cancer with metastatic disease. Pain in the neck. Evaluate for m etastatic disease.. COMPARISON: None. TECHNIQUE: Multiplanar multisequence images of the Cervical Spine were performed were performed with and without IV contrast. Contrast Volume: 5.5 ml of Gadavist FINDINGS: There is evidence for a pathologic compression fracture of the C6 vertebral body with loss of 80% of the height of the vertebral body. There is retropulsion of bone fragments into the spinal canal anter iorly and encroachment upon the spinal canal without compressing upon or deforming the spinal cord. D ecreased CSF is seen surrounding the spinal cord at this level. However, there is CSF flow artifact p resent anterior to the vertebral bodies above and below the retropulsion related to the narrowing fro m the retropulsion. The heights of the remaining cervical vertebral bodies are maintained. The vertebral bodies are in an atomic alignment. Abnormal marrow edema is present within the C3, C4 and C6 vertebral bodies representing metastatic di sease. This enhances following contrast administration. The odontoid is intact and the atlantoaxial articulation is within normal limits. The craniocervical junction is within normal limits. Homogeneous signal is seen within the spinal cord. There is no abn ormal enhancement following contrast administration. The disc space heights are otherwise maintained. No disc protrusion/herniation is identified. IMPRESSION: 1. Enhancing metastatic disease involving the C3, C4 and C6 vertebral bodies. 2. There is pathologic compression fracture of C6 with retropulsion of bone fragments into the spinal canal. 3. While there is decrease in the AP diameter of the spinal canal, there is no compression upon the s bianca cord at this level. 4. No abnormal enhancement within the spinal cord. ACT 112: Negative or not required by law. Electronically signed by: Kendell Mena M.D. 04/14/2021 3:35 PM
--- NOTE | 2021-04-14 18:13 | Billing Data ---
Date of Service April 14, 2021 Coding Level of Care Code 00798 Subseq Hosp Care Lvl 3
[2021-04-15] MEDS: ACETAMINOPHEN 1,000 MG/100 ML VIAL IV SCH ×3 (04:59→20:52)
[2021-04-15] MEDS: KETOROLAC TROMETHAMINE 15 MG/ML VIAL IV SCH ×4 (04:59→20:55)
[2021-04-15 05:27] LABS: Eosinophils # (auto) 0.07 K/uL (0-0.5); Eosinophils % (auto) 1.1 %; Hematocrit (blood only) 22.6 % (37-47); Hemoglobin 7.3 g/dL (12.0-16.0); Immature Granulocytes # (auto) 0.05 K/uL (0.00-0.02); Immature Granulocytes % (auto) 0.8 %; Lymphocytes # (auto) 1.56 K/uL (1.2-3.4); Lymphocytes % (auto) 23.9 %; Mean Corpuscular Hemoglobin 27.2 pg (25-34); Mean Corpuscular Hgb Conc 32.3 g/dL (32-36); Mean Corpuscular Volume 84.3 fL (80-100); Mean Platelet Volume 9.2 fL (7.4-10.4); Monocytes # (auto) 0.48 K/uL (0.11-0.59); Monocytes % (auto) 7.3 %; Neutrophils # (auto) 4.38 K/uL (1.4-6.5); Neutrophils % (auto) 66.9 %; Platelet Count 229 K/uL (130-400); RDW Coefficient of Variation 16.8 % (11.5-14.5); RDW Standard Deviation 52.2 fL (36.4-46.3); Red Blood Count 2.68 M/uL (4.2-5.4); White Blood Count 6.54 K/uL (4.8-10.8)
[2021-04-15 05:56] LABS: RBC Morphology Unremarkable
[2021-04-15 06:07] LABS: BUN Creatinine Ratio 44.7 (10-20); Creatinine Clr Calc Pharmacy 82.9 ml/min; Est GFR (African American) 116.1 ml/min; Est GFR (Non-African American) 100.2 ml/min; Potassium 4.4 mmol/L (3.5-5.1)
--- NOTE | 2021-04-15 07:10 | Hospitalist Progress Note ---
Date of Service April 15, 2021 Assessment & Plan (1) Metastatic breast cancer: Plan: Patient is a 35 year old female at 8 weeks with history of recently diagnosed triple positive metastatic breast cancer with lytic lesions to spine and hip admitted for intractable back and neck pain. Since admission patients patient has migrated primarily to her lumbar spine in addition to her L hip. Despite a multitude of pain management medications she has had difficulty fi nding comfort regardless of position. Metastatic Breast Cancer with Lytic Lesions -Patient has decided to pursue elective for medical necessity in order to undergo aggressive cancer treatment. -She understands that many of the treatment options in regards to both control of her pain, treatment of her cancer, staging of her disease may be harmful to her unborn child and accepts the risks involved as she is planning on elective . 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 1. Continue Fentanyl 25 mcg every 72 hour patch for basal pain control. 2. Advised the patient to take Oxycodone 5mg x 4 hours if needed for additional pain relief. 3. Dilaudid PIPE SMOKING MACHINE OFFBEARER was discontinued. I did order Dilaudid 0.5mg IV x 6 hours if needed for breakthrough pain. 4. Recommend Cymbalta, Toradol, Lidoderm patch, Flexeril. 5. Continue bowel regimen Colace and MiraLAX with backup Relistor. 6. Pain is controlled. Will sign off on the patient. Please call with any questions or concerns. - Started scheduled APAP and Toradol as well -MRI of her Cervical, Thoracic, and Lumbar spine obtained 04/14 -- howing extensive metastatic disease in lumbosacral, thoracic, and cervical spine. Pathologic fractures in C6, T8, L4. -Pre-chemotherapy Echocardiogram ordered with EF 60-65% -Case has been discussed extensively with OBGYN and Oncology -Oncology following, recommending at this time palliative radiation therapy to help with pain of the hip --palliative radiation delivered 04/13 after termination of -Port placed in L internal jugular vein on 04/10/21 by General Surgery -Chemotherapy planned for 3/3 -Had plans for bone biopsy on 04/12/21 -- however, patient preferring not to undergo at this time so will hold off and focus on pain control as above and plans as below -Transvaginal US notable for single live intrauterine estimated gestational age 8 weeks 3 days in addition to subchorionic hemorrhage. -Patient noting that she would like to pursue elective . -She would want to pursue therapeutic treatment for both her cancer and her pain control, knowing any teratogenic effects it would have on the fetus at this time as she is planning on elective termination. -OBGYN Dr. Yanez at [facility] [place] has been following patients case as well who feels that as this is a medically necessary situation, would be able to assist the patient in regards to elective . She plans on reaching out to the patient directly in regards to possible phone/telemedicine appointment as she would have difficulty with transport to [facility] with her pain as is. -If able to manage patient's pain adequately on an outpatient regiment, patient would likely benefit from evaluation there for termination of the . -After discussion by hospital administration, decision was made to proceed with medically indicated termination of - D&E performed 04/13 without complications thus far -- continue to monitor for vaginal bleeding Anemia - In the setting of D&E procedure 04/13 - Hemodynamically stable at this time - Given IV Venofer 04/13 due to iron deficiency per Heme/Onc recs to optimize prior to chemotherapy - Monitor H/H Diet: Regular Dispo: Med/Surg, planning for DC home once pain well controlled enough for patient to ambulate to bathroom and back Dvt ppx: Lovenox Code: Full Admission and Anticipated Discharge Date Admission Date: April 09, 2021 Supervising Physician Co-Signing Physician Notes I personally examined the patient and verified all esposito points of history and exam, discussed case, and agree with decision making with Dr Chavarria pain continues to do better - with help and with walker was able to go to bathroom today. still painful and then had to sit and take pain meds - but doing better. got first dose chemo as well vitals noted nad heent nc at mmm breathing unlabored no accessory muscles good effort Metastatic breast cancer/intractable painpain improving. XRT seems to have helped. started chemo today. pain control improving but not yet at a range she could tolerate at home -- increase gabapentin further, premedicate before activity. --for home likely will need walker, hospital bed w trapeze, shower chair, toilet seat/lift/bars otherwise as above Subjective No acute events overnight. Reports feeling similar to yesterday. The pain on her right side is well controlled, but she still feels some pain on the left. We will try to move today and reattempt to sit at edge of bed, possibly even stand up if she is able. Mentioned that she was happy to be starting chemotherapy today. Review of Systems Review of Systems: Denies fever, chills, nausea, vomiting, chest pain, palpitations, shortness of breath, cough Physical Exam Constitutional: cooperative; no acute distress Respiratory: normal respiratory effort, lungs clear to auscultation Cardiovascular: RRR, no murmur, no edema Skin: no rashes, warm and dry Results & Data Results & Data ([facility]) Vital Signs (Past 12 Hours) Vital Signs Temp Pulse Resp BP Pulse Ox 04/14/21 21:52 36.8 C 71 16 111/71 97 Resident Activity Tracking Resident Involvement: Resident Care Provided Care Provided: Adult Hospital Medicine
[2021-04-15] MEDS: DOCUSATE SODIUM 100 MG CAP PO SCH ×2 (09:00→20:05)
[2021-04-15] MEDS: DULoxetine HCL 30 MG CAP PO SCH (09:00)
[2021-04-15] MEDS: GABAPENTIN 300 MG CAP PO SCH (09:00)
[2021-04-15] MEDS: CYCLOBENZAPRINE HCL 10 MG TAB PO SCH ×3 (09:00→20:05)
[2021-04-15] MEDS ORDERED: dexAMETHasone 10 MG in SYRINGE 0 ML IV SCH (09:00)
[2021-04-15] MEDS: POLYETHYLENE (MIRALAX) 17 GM PACK PO SCH (09:01)
[2021-04-15] MEDS: LIDOCAINE 5% 1 PATCH TD SCH ×2 (09:01→12:05)
[2021-04-15] MEDS: CHECK fentaNYL PATCH PLACEMENT SCH ×3 (09:01→23:28)
[2021-04-15] MEDS ORDERED: POLYETHYLENE (MIRALAX) 17 GM PACK PO ONE (10:31)
[2021-04-15] MEDS ORDERED: bisacodyL 10 MG SUPP PR STA (10:49)
[2021-04-15] MEDS: ENOXAPARIN INJ 40 MG/0.4 ML SYR SQ SCH (10:54)
[2021-04-15] MEDS ORDERED: DEXAMETHASONE IV SCH (13:30)
[2021-04-15] MEDS ORDERED: DEXTROSE 5% IV SCH (13:30)
[2021-04-15] MEDS ORDERED: PALONOSETRON IV SCH (13:30)
[2021-04-15] MEDS ORDERED: POLYOLEFIN IV ONE (14:00)
[2021-04-15] MEDS ORDERED: PRIMARY PLUMSET, PE LINED TUBING, 113 IN, NON-DEHP (2260-0500) IV SCH (14:00)
[2021-04-15] MEDS ORDERED: SODIUM CHL 0.9% IV ONE (14:00)
[2021-04-15] MEDS ORDERED: DOCETAXEL IV ONE (14:00)
--- NOTE | 2021-04-15 14:40 | Progress Notes ---
SUBJECTIVE: She reports doing a lot better in terms of pain control. Received palliative radiation to the sacral lesion on 04/13/2021. Also had D and E on 04/13/2021. REVIEW OF SYSTEMS: Negative except for occasional lower back pain. PHYSICAL EXAMINATION: VITAL SIGNS: Blood pressure 108/65, pulse rate 72, respiratory rate 16, temperature 36.8, oxygen saturation 95% on room air. CONSTITUTIONAL: Vitals are stable. RESPIRATORY: Lung sounds were clear bilaterally. CARDIOVASCULAR: Heart sounds were regular rate and rhythm without significant murmur. GASTROINTESTINAL: No palpable hepatosplenomegaly. Abdomen was soft with normal bowel sounds. EXTREMITIES: No edema bilaterally. LABORATORY DATA: CBC from 04/15/2021 significant for hemoglobin of 7.3 and hematocrit of 22.6 with normal white cell count of 6.54 and platelet count of 229,000. Chemistry was unremarkable. IMPRESSION: 1. Triple positive metastatic right breast cancer. 2. Extensive bone metastasis. 3. Anemia. 4. Osseous metastasis with bone pain. PLAN: Padmaja seems to be doing a lot better today following palliative radiation to the sacral lesion. Since she is still admitted in the hospital and has aggressive disease, would recommend starting chemotherapy today with docetaxel 75 mg/m sq IV. Discussed potential side effects of treatment with the patient, which include but are not limited to hair loss, nausea, vomiting, diarrhea, constipation, peripheral neuropathy, peripheral edema, decrease in blood counts, potential increase in risk for infection, decrease in red blood cells/platelet count, increase in risk for PRBC/platelet transfusion. Following our discussion, she indicated that she would like to go ahead with treatment and informed consent was obtained. Will premedicate her with dexamethasone 20 mg IV and aloxi. Recommend p.r.n. Zofran/Compazine for chemo-induced nausea while she is inpatient. Prescription for Zofran and Compazine has been sent to her pharmacy. Please transfuse with 1-2 units of PRBC to maintain hemoglobin greater than 8. Plan to treat her with Herceptin/Perjeta upon discharge from hospital early next week. I will also arrange for outpatient bone biopsy with radiology. 1. Will go ahead with palliative chemotherapy with docetaxel 75 mg/m sq IV today. Treatment will be given every 3 weeks for a total of 6 cycles in addition to dual anti Her2 therapy with herceptin/perjeta. 2. Will plan for outpatient Herceptin/Perjeta upon discharge from hospital. 3. Recommend transfusing with 1-2 units of PRBC to maintain hemoglobin greater than 8. 4. Recommend p.r.n. Zofran/Compazine for chemo-induced nausea and vomiting. 5. Will arrange for outpatient bone biopsy with radiology. Thank you for taking care of this very pleasant patient. Oncology will continue following her while she is in the hospital. Please feel free to call if you have any further questions. Job ID: [id number] NISSA
[2021-04-15] MEDS: HEPARIN 100 UNIT/ML 5ML FLUSH FLUSH PRN (15:38)
[2021-04-15] MEDS ORDERED: SODIUM CHLORIDE 0.9% 250 ML IV PRN (16:14)
--- NOTE | 2021-04-15 18:23 | Billing Data ---
Date of Service April 15, 2021 Coding Level of Care Code 37552 Subseq Hosp Care Lvl 3
[2021-04-15] MEDS: GABAPENTIN 600 MG TAB PO SCH (20:09)
[2021-04-16] MEDS: KETOROLAC TROMETHAMINE 15 MG/ML VIAL IV SCH ×4 (04:55→21:56)
[2021-04-16] MEDS: ACETAMINOPHEN 1,000 MG/100 ML VIAL IV SCH ×3 (05:23→21:54)
[2021-04-16 05:43] LABS: Hematocrit (blood only) 28.8 % (37-47); Hemoglobin 9.7 g/dL (12.0-16.0); Immature Granulocytes # (auto) 0.05 K/uL (0.00-0.02); Immature Granulocytes % (auto) 0.8 %; Lymphocytes # (auto) 0.87 K/uL (1.2-3.4); Lymphocytes % (auto) 13.8 %; Mean Corpuscular Hgb Conc 33.7 g/dL (32-36); Mean Platelet Volume 9.2 fL (7.4-10.4); Monocytes % (auto) 4.8 %; Neutrophils # (auto) 5.08 K/uL (1.4-6.5); Neutrophils % (auto) 80.6 %; Platelet Count 217 K/uL (130-400); RDW Coefficient of Variation 16.1 % (11.5-14.5); RDW Standard Deviation 48.9 fL (36.4-46.3); Red Blood Count 3.47 M/uL (4.2-5.4)
[2021-04-16 06:21] LABS: BUN Creatinine Ratio 46.6 (10-20); Creatinine Clr Calc Pharmacy 109.6 ml/min; Est GFR (African American) 136.5 ml/min; Est GFR (Non-African American) 117.8 ml/min; Potassium 4.2 mmol/L (3.5-5.1)
[2021-04-16] MEDS: CHECK fentaNYL PATCH PLACEMENT SCH ×2 (08:00→16:08)
--- NOTE | 2021-04-16 08:00 | Hospitalist Progress Note ---
Date of Service April 16, 2021 Assessment & Plan (1) Metastatic breast cancer: Plan: Patient is a 35 year old female at 8 weeks with history of recently diagnosed triple positive metastatic breast cancer with lytic lesions to spine and hip admitted for intractable back and neck pain. Since admission patients patient has migrated primarily to her lumbar spine in addition to her L hip. Despite a multitude of pain management medications she has had difficulty fi nding comfort regardless of position. Metastatic Breast Cancer with Lytic Lesions - undergoing palliative radiation and chemotherapy per Oncology team for aggressive breast cancer - Pre-chemotherapy Echocardiogram ordered with EF 60-65% - bone biopsy to be done on 04/20 outpatient Pain Management -Pain Management consulted for assistance of above as well. 1. Continue Fentanyl 25 mcg every 72 hour patch for basal pain control. 2. Advised the patient to take Oxycodone 5mg x 4 hours if needed for additional pain relief. 3. Dilaudid GROUND WIRER was discontinued. I did order Dilaudid 0.5mg IV x 6 hours if needed for breakthrough pain. 4. Recommend Cymbalta, Toradol, Lidoderm patch, Flexeril. 5. Continue bowel regimen Colace and MiraLAX with backup Relistor. 6. Pain is controlled. Will sign off on the patient. Please call with any questions or concerns. - Started scheduled APAP and Toradol as well - MRI of her Cervical, Thoracic, and Lumbar spine obtained 04/14 -- showing extensive metastatic disease in lumbosacral, thoracic, and cervical spine. Pathologic fractures in C6, T8, L4. S/P D&E - D&E performed on 04/13 by [facility], no complications Anemia - In the setting of D&E procedure 04/13 - Hemodynamically stable at this time - Given IV Venofer 04/13 due to iron deficiency per Heme/Onc recs to optimize prior to chemotherapy - Monitor H/H Diet: Regular Dispo: Med/Surg, planning for DC home once pain well controlled enough for patient to ambulate to bathroom and back Dvt ppx: Lovenox Code: Full (2) Anemia: Admission and Anticipated Discharge Date Admission Date: April 09, 2021 Supervising Physician Co-Signing Physician Notes I personally examined the patient and verified all esposito points of history and exam, discussed case, and agree with decision making with Dr Salmeron Getting around better. Walked even more. Overall pain is continuing to be under better control. Does have some left upper chest pain just below port site. Somewhat sharp and stabbing seems to hurt more when she breathes. vitals noted nad heent nc at mmm breathing unlabored no accessory muscles good effort osteopathic/structural/musculoskeletalleft upper chest wall rib approximately 4 and 5 inhaled, tender, decreased range of motionparticularly when compared to the rightrespiratory assist/inhibitory pressureimproved some in range of motion and a good bit in pain. Taught how to do as well. Metastatic breast cancer/intractable painpain improving. Continue with multi modal med management, chemo, XRT. --for home likely will need walker, hospital bed w trapeze, shower chair, toilet seat/lift/bars, working towards dispo Home as her pain improves, mobility improves, and her comfort level with situation improves as well. Somatic dysfunction ribsuspect her left upper chest pain is rib dysfunctionprobably from inflammation/bruising from the port placement leading to intercostal dysfunctionOMT as above, taught . Given the overall situation, and the proximity to the portchest x-ray ordered given that the pain has been persistent through the daymostly to rule out any sort of migration of the port, or pneumothorax. otherwise as above Subjective no acute events overnight. doing well this morning. goal of today is to improve tolerance of getting up to side of bed and walking to the bathroom. pain in L and R hips no moreso even. complaining of some mild chest pain a few centimeters inferior to port placement that hurts with inhalation. Review of Systems Review of Systems: All systems reviewed & are unremarkable except as noted in Subjective Physical Exam Physical Exam: Constitutional: thin, in no apparent distress, sitting comfortably in bed. Cardiac: RRR, no murmurs, gallops or rubs. Normal S1, S2 Pulm: CTA BL, no wheezes, rhonchi, crackles or rubs, moving air well throughout both lungs Chest: central port in place on L chest without surrounding erythema, swelling Results & Data Results & Data ([facility]) Vital Signs (Past 12 Hours) Vital Signs Temp Pulse Pulse Resp BP BP Pulse Ox 04/16/21 07:28 36.5 C 68 12 123/73 97 04/16/21 01:06 36.6 C 72 14 141/72 H 96 04/15/21 23:40 36.8 C 67 16 148/80 H 96 04/15/21 23:25 36.6 C 64 14 130/75 97 04/15/21 22:40 36.7 C 53 L 16 152/82 H 97 04/15/21 22:10 64 16 143/83 H 96 04/15/21 21:55 36.9 C 60 16 137/85 97 04/15/21 21:41 37.0 C 63 16 134/81 97 04/15/21 20:46 37 C 60 14 135/80 96 04/15/21 20:05 04/15/21 20:02 36.7 C 59 L 14 143/83 H 97 Pulse Ox 04/16/21 07:28 04/16/21 01:06 04/15/21 23:40 04/15/21 23:25 04/15/21 22:40 04/15/21 22:10 04/15/21 21:55 04/15/21 21:41 04/15/21 20:46 04/15/21 20:05 96 04/15/21 20:02 Resident Activity Tracking Resident Involvement: Resident Care Provided Care Provided: Adult Hospital Medicine (1) Anemia Anemia type: unspecified type Qualified Code(s): D64.9 - Anemia, unspecified
[2021-04-16] MEDS: POLYETHYLENE (MIRALAX) 17 GM PACK PO SCH (09:51)
[2021-04-16] MEDS: DOCUSATE SODIUM 100 MG CAP PO SCH ×2 (09:52→21:28)
[2021-04-16] MEDS: CYCLOBENZAPRINE HCL 10 MG TAB PO SCH ×3 (09:52→21:27)
[2021-04-16] MEDS: DULoxetine HCL 30 MG CAP PO SCH (09:53)
[2021-04-16] MEDS: LIDOCAINE 5% 1 PATCH TD SCH ×2 (09:53→09:54)
[2021-04-16] MEDS: GABAPENTIN 300 MG CAP PO SCH (09:53)
[2021-04-16] MEDS: fentaNYL 25 MCG/HR TDSY TD SCH (09:57)
[2021-04-16] MEDS: ENOXAPARIN INJ 40 MG/0.4 ML SYR SQ SCH (12:45)
[2021-04-16] MEDS: bisacodyL 10 MG SUPP PR PRN (13:30)
--- NOTE | 2021-04-16 18:32 | Billing Data ---
Date of Service April 16, 2021 Coding Level of Care Code 26357 Subseq Hosp Care Lvl 3
--- NOTE | 2021-04-16 18:32 | Hospitalist Progress Note ---
Date of Service April 16, 2021 Assessment & Plan Admission and Anticipated Discharge Date Admission Date: April 09, 2021 Results & Data Results & Data ([facility]) Vital Signs (Past 12 Hours) Vital Signs Temp Pulse Resp BP Pulse Ox 04/16/21 16:26 98.1 F 71 12 111/72 94 04/16/21 07:28 97.7 F 68 12 123/73 97 PG Care Time/CCT Total # of Minutes Spent Total Time Spent with Patient: Total time spent is greater than 50% in coordination of care (as documented) at patient's floor/unit and/or counseling patient: Coding Level of Care Code None CPT Codes Musculoskeletal - Musculoskeletal: [address] 1-2 Body regions ([id number])
[2021-04-16] MEDS: GABAPENTIN 600 MG TAB PO SCH (21:28)
--- NOTE | 2021-04-16 22:08 | XRay Report ---
XR chest 2V PA/lateral CLINICAL HISTORY: pain at port site - ?placement, PTX? TECHNIQUE: AP and lateral radiographs of the chest was obtained. Comparison: Comparison is made to chest radiograph 04/10/2021 FINDINGS: Lines and tubes are stable. The cardiomediastinal silhouette is normal. The lungs are clear. Small bi lateral pleural effusions are seen. No evidence of pneumothorax. IMPRESSION: 1. Satisfactory position of left portacatheter. No evidence of pneumothorax. 2. Small bilateral pleural effusions. ACT 112: Negative or not required by law. Electronically signed by: Epi Demarco M.D. 04/16/2021 10:07 PM
[2021-04-16] MEDS: HEPARIN 100 UNIT/ML 5ML FLUSH FLUSH PRN (22:16)
[2021-04-17] MEDS: CHECK fentaNYL PATCH PLACEMENT SCH ×4 (00:11→23:27)
[2021-04-17] MEDS: KETOROLAC TROMETHAMINE 15 MG/ML VIAL IV SCH (04:55)
[2021-04-17] MEDS: ACETAMINOPHEN 1,000 MG/100 ML VIAL IV SCH (05:47)
[2021-04-17] MEDS: HEPARIN 100 UNIT/ML 5ML FLUSH FLUSH PRN (05:49)
[2021-04-17 05:58] LABS: Basophils # (auto) 0.01 K/uL (0-0.2); Basophils % (auto) 0.2 %; Eosinophils # (auto) 0.06 K/uL (0-0.5); Eosinophils % (auto) 1.3 %; Hematocrit (blood only) 30.9 % (37-47); Immature Granulocytes # (auto) 0.04 K/uL (0.00-0.02); Immature Granulocytes % (auto) 0.8 %; Lymphocytes % (auto) 19.1 %; Mean Corpuscular Hemoglobin 27.5 pg (25-34); Mean Corpuscular Hgb Conc 32.4 g/dL (32-36); Mean Corpuscular Volume 84.9 fL (80-100); Monocytes # (auto) 0.07 K/uL (0.11-0.59); Monocytes % (auto) 1.5 %; Neutrophils # (auto) 3.63 K/uL (1.4-6.5); Neutrophils % (auto) 77.1 %; Platelet Count 217 K/uL (130-400); RDW Coefficient of Variation 16.5 % (11.5-14.5); RDW Standard Deviation 51.8 fL (36.4-46.3); Red Blood Count 3.64 M/uL (4.2-5.4); White Blood Count 4.71 K/uL (4.8-10.8)
[2021-04-17 06:22] LABS: Calcium 8.1 mg/dl (8.5-10.1); Creatinine Clr Calc Pharmacy 129.8 ml/min; Est GFR (African American) 144.3 ml/min; Est GFR (Non-African American) 124.5 ml/min; Potassium 4.6 mmol/L (3.5-5.1)
--- NOTE | 2021-04-17 08:11 | Hospitalist Progress Note ---
Date of Service April 17, 2021 Assessment & Plan (1) Metastatic breast cancer: Plan: Patient is a 35 year old female at 8 weeks with history of recently diagnosed triple positive metastatic breast cancer with lytic lesions to spine and hip admitted for intractable back and neck pain. Since admission patients patient has migrated primarily to her lumbar spine in addition to her L hip. Despite a multitude of pain management medications she has had difficulty fi nding comfort regardless of position. Metastatic Breast Cancer with Lytic Lesions - undergoing palliative radiation and chemotherapy per Oncology team for aggressive breast cancer - Pre-chemotherapy Echocardiogram ordered with EF 60-65% - bone biopsy to be done on 04/20 outpatient - daily Neupogen 480 mcg per Oncology recommendations Pain Management -Pain Management consulted for assistance of above as well. 1. Continue Fentanyl 25 mcg every 72 hour patch for basal pain control. 2. Advised the patient to take Oxycodone 5mg x 4 hours if needed for additional pain relief. 4. Recommend Cymbalta, Toradol, Lidoderm patch, Flexeril. 5. Continue bowel regimen Colace and MiraLAX with backup Relistor. 6. Dexamethasone IV converted to PO - Started scheduled APAP and Toradol as well - MRI of her Cervical, Thoracic, and Lumbar spine obtained 04/14 -- showing extensive metastatic disease in lumbosacral, thoracic, and cervical spine. Pa thologic fractures in C6, T8, L4. S/P D&E - D&E performed on 04/13 by [facility], no complications Anemia - In the setting of D&E procedure 04/13 - Hemodynamically stable at this time - Given IV Venofer 04/13 due to iron deficiency per Heme/Onc recs to optimize prior to chemotherapy - Monitor H/H Diet: Regular Dispo: Med/Surg, planning for DC home once pain well controlled enough for patient to ambulate to bathroom and back Dvt ppx: Lovenox Code: Full (2) Anemia: Admission and Anticipated Discharge Date Admission Date: April 09, 2021 Supervising Physician Co-Signing Physician Notes I personally examined the patient and verified all esposito points of history and exam, discussed case, and agree with decision making with Dr Salmeron overall doing better. oncology wonders about spine looking at Cspine lesions -- will ask spine onc to review films. other than some neck stiffness she has no significant neck pain or radicular symptoms vitals noted nad heent nc at mmm breathing unlabored no accessory muscles good effort neck full AROM Metastatic breast cancer/intractable painpain overall doing better. Continue with multi modal med management, chemo, XRT. --for home likely will need walker, hospital bed w trapeze, shower chair, toilet seat/lift/bars, working towards dispo Home as her pain improves, mobility improves, and her comfort level with situation improves as well.patient's condition requires positioning of the body to alleviate pain, preent contractures, and avoid respiratory infections - in a way that isn't workable in a normal bed. further due to spine pain, leg weakness, overall weakness, pt's condition requires special attachments (such as a trapeze attachment) not feasible to use on an ordinary bed. she is likely to be confined to a single room for a period of time - and very limited mobility due to pain/fatiguability as it relates to the metastatic cancer and spinal metastases. otherwise as above Subjective Doing well this morning. was able to walk to the bathroom using a walker yesterday. hoping to be strong enough to go home with home health tomorrow. Review of Systems Review of Systems: All systems reviewed & are unremarkable except as noted in Subjective Physical Exam Physical Exam: Constitutional: thin, in no apparent distress, sitting comfortably in bed. Cardiac: RRR, no murmurs, gallops or rubs. Normal S1, S2 Pulm: CTA BL, no wheezes, rhonchi, crackles or rubs, moving air well throughout both lungs Chest: central port in place on L chest without surrounding erythema, swelling Results & Data Results & Data ([facility]) Vital Signs (Past 12 Hours) Vital Signs Temp Pulse Resp BP Pulse Ox Pulse Ox 04/17/21 07:17 36.7 C 72 12 117/73 96 04/16/21 21:59 36.6 C 74 16 129/74 98 04/16/21 21:25 96 Laboratory Results Laboratory Results WBC 4.71 K/uL (4.8-10.8) L 04/17/21 05:29 RBC 3.64 M/uL (4.2-5.4) L 04/17/21 05:29 Hgb 10.0 g/dL (12.0-16.0) L 04/17/21 05:29 Hct 30.9 % (37-47) L 04/17/21 05: MCV 84.9 fL (80-100) 04/17/21 05:29 MCH 27.5 pg (25-34) 04/17/21 05:29 MCHC 32.4 g/dL (32-36) 04/17/21 05:29 RDW Std Deviation 51.8 fL (36.4-46.3) H 04/17/21 05: RDW Coeff of Abigail 16.5 % (11.5-14.5) H 04/17/21 05:29 Plt Count 217 K/uL (130-400) 04/17/21 05: MPV 9.0 fL (7.4-10.4) 04/17/21 05:29 Immature Gran % (Auto) 0.8 % 04/17/21 05: Neut % (Auto) 77.1 % 04/17/21 05:29 Lymph % (Auto) 19.1 % 04/17/21 05:29 Nye % (Auto) 1.5 % 04/17/21 05:29 Eos % (Auto) 1.3 % 04/17/21 05:29 Baso % (Auto) 0.2 % 04/17/21 05:29 Neut # (Auto) 3.63 K/uL (1.4-6.5) 04/17/21 05:29 Lymph # (Auto) 0.90 K/uL (1.2-3.4) L 04/17/21 05:29 Nye # (Auto) 0.07 K/uL (0.11-0.59) L 04/17/21 05:29 Eos # (Auto) 0.06 K/uL (0-0.5) 04/17/21 05:29 Baso # (Auto) 0.01 K/uL (0-0.2) 04/17/21 05:29 Immature Gran # (Auto) 0.04 K/uL (0.00-0.02) H 04/17/21 05:29 RBC Morphology Unremarkable 04/15/21 04:59 Sodium 134 mmol/L (136-145) L 04/17/21 05:29 Potassium 4.6 mmol/L (3.5-5.1) 04/17/21 05:29 Chloride 100 mmol/L (98-107) 04/17/21 05:29 Carbon Dioxide 29 mmol/L (21-32) 04/17/21 05:29 Anion Gap 5 (3-11) 04/17/21 05:29 BUN 25 mg/dl (6-23) H 04/17/21 05:29 Creatinine 0.49 mg/dl (0.6-1.2) L 04/17/21 05:29 Est Cr Clr Drug Dosing 129.8 ml/min 04/17/21 05:29 Est GFR ( Amer) 144.3 ml/min 04/17/21 05:29 Est GFR (Non-Af Amer) 124.5 ml/min 04/17/21 05:29 BUN/Creatinine Ratio 51.0 (10-20) H 04/17/21 05:29 Glucose 73 mg/dl (70-99(Fasting)) 04/17/21 05:29 Calcium 8.1 mg/dl (8.5-10.1) L 04/17/21 05:29 Total Bilirubin 0.3 mg/dl (0.2-1.0) 04/09/21 12:53 AST 27 U/L (13-39) 04/09/21 12:53 ALT 9 U/L (7-52) 04/09/21 12:53 Alkaline Phosphatase 59 U/L (34-104) 04/09/21 12:53 Total Protein 7.0 gm/dl (6.0-8.3) 04/09/21 12:53 Albumin 3.9 gm/dl (3.4-5.0) 04/09/21 12:53 Globulin 3.1 gm/dl (2.5-4.0) 04/09/21 12:53 Albumin/Globulin Ratio 1.3 (0.9-2) 04/09/21 12:53 Lipase 24 U/L (11-82) 04/09/21 12:53 Urine Color Yellow 04/09/21 21:15 Urine Appearance Cloudy (Clear) A 04/09/21 21:15 Urine pH 7.0 (4.5-7.5) 04/09/21 21:15 Ur Specific Mccausland > 1.045 (1.000-1.030) H 04/09/21 21:15 Urine Protein Negative (Negative) 04/09/21 21:15 Urine Glucose (UA) Negative (Negative) 04/09/21 21:15 Urine Ketones Negative (Negative) 04/09/21 21:15 Urine Blood Negative (Negative) 04/09/21 21:15 Urine Nitrite Negative (Negative) 04/09/21 21:15 Urine Bilirubin Negative (Negative) 04/09/21 21:15 Urine Urobilinogen Negative (Negative) 04/09/21 21:15 Ur Leukocyte Esterase Negative (Negative) 04/09/21 21:15 Urine WBC (Auto) 1-5 /hpf (0-5) 04/09/21 21:15 Urine RBC (Auto) 0-4 /hpf (0-4) 04/09/21 21:15 U Hyaline Cast (Auto) 1-5 /lpf (0-5) 04/09/21 21:15 U Epithel Cells (Auto) >30 /lpf (0-5) H 04/09/21 21:15 Urine Bacteria (Auto) 1+ (Negative) H 04/09/21 21:15 SARS-CoV-2, RNA, NAAT NEGATIVE (NEGATIVE) 04/09/21 13:09 Blood Type B Positive 04/15/21 17:10 Antibody Screen NEGATIVE 04/15/21 17:10 Crossmatch See Detail 04/15/21 17:[address] 04/09/21 12:08 CT OF THE CHEST WITH IV CONTRAST CLINICAL HISTORY: worsening pain metastatic breast cancer COMPARISON STUDY: Chest CT March 24, 2021. TECHNIQUE: Following IV administration of 95 mL of Optiray, helical axial images of the chest were obtained. Sagittal and coronal reconstructions were viewed as well as maximal intensity projections on an independent 3-D workstation. Automated exposure control was utilized for the study. A dose lowering technique was utilized adhering to the principles of ALARA. CT DOSE: 464.83 mGy.cm FINDINGS: Note is again made of asymmetric right breast skin thickening. There is a 2.2 cm irregular enhancing mass which contains a biopsy clip within the upper inner quadrant of the right breast. Several prominent right axillary lymph nodes are noted. A biopsy clip within right axilla is present. Size of the heart is normal. There is no pericardial effusion. No enlarged hilar or mediastinal lymph nodes are present. Central airways are patent. There is no consolidation to suggest pneumonia. No pneumothorax or pleural effusion is present. A 5 mm ground glass right lower lobe nodule on image 228 of [address] of March 24, 2021. Numerous lytic skeletal metastases are again noted. These have slightly progressed since CT of March 24, 2021. A T8 pathologic fracture is again noted. Although suboptimally assessed by CT, there is suggestion of slight epidural extension at the T10 level. There is no evidence for severe central canal stenosis. Mild to moderate multilevel neural foraminal stenosis due to metastases is present but this is also suboptimally assessed by CT. Abdomen and pelvis will be reported separately. An indeterminate 1 cm segment 7 hepatic lesion is present. IMPRESSION: 1. Extensive skeletal metastatic disease with slight progression since CT of March 24, 2021. Redemonstration of a T8 pathologic fracture and slight epidural extension at the T10 level. No severe central canal stenosis by CT. Mild to moderate multilevel neural foraminal stenosis due to skeletal lesions. 2. Right breast mass with asymmetric right breast skin thickening consistent with primary malignancy. 3. New 5 mm groundglass right lower lobe nodule and a 1 cm right hepatic lobe lesion. These are indeterminate. ACT 112: Negative or not required by law. Electronically signed by: Kurtis Peralta M.D. 04/09/2021 2:46 PM Abdomen/Pelvis CT 04/09/21 12:09 CT SCAN OF THE ABDOMEN AND PELVIS WITH IV CONTRAST CLINICAL HISTORY: Metastatic breast cancer. Generalized abdominal pain. COMPARISON STUDY: Chest CT dated 03/24/2021. TECHNIQUE: Following the IV administration of 95 cc of Optiray 320, CT scan of the abdomen and pelvis is performed from the lung bases to the proximal femora. Images are reviewed in the axial, sagittal, and coronal planes. IV contrast was administered without complication. A dose lowering technique was utilized adhering to the principles of ALARA. FINDINGS: Lung bases: The heart is normal in size and without pericardial effusion. There is dependent atelectasis. A 6 cm groundglass nodule at the right lung base seen on image #29 is new from previous and likely inflammatory. Marked dermal thickening is noted in the right breast. Liver: The contrast-enhanced liver is normal in size, contour, and attenuation. There is no intrahepatic biliary ductal dilatation. The hepatic veins and portal veins are patent. An 11 mm indeterminate hypodensity is seen in the subcapsular right lobe on image #78. Gallbladder: Unremarkable. Spleen: Normal in size and attenuation. Pancreas: Unremarkable. Adrenal glands: Unremarkable. Kidneys: The contrast enhanced kidneys are normal in size and without hydronephrosis. The kidneys enhance symmetrically. There is a 7 mm nonobstructing left renal calculus. Abdominal vasculature: The abdominal aorta is normal in course and caliber. Bowel: There is rectosigmoid fecal retention and moderate constipation. No bowel obstruction is seen. The appendix is well-visualized and normal. Peritoneum: There is no intraperitoneal free air or abdominal ascites. Lymphadenopathy: None. Pelvic viscera: The bladder is distended and otherwise normal in appearance. The uterus is enlarged and heterogeneous noting an intrauterine gestation. No adnexal lesion is seen. An involuting follicle is noted in the right ovary. Trace free fluid is seen in the cul-de-sac. Skeletal structures: There is evidence of extensive/diffuse osteolytic metastatic disease. Lesions are seen throughout the spine and bony pelvis. There are small bilateral rib lesions, as well as tiny lesions in the proximal femora. A licensing representative lesion in the right sacral ala on image #256 measures 2.6 cm, and a lesion within the right aspect of L4 measures 2.6 cm. There is no CT evidence of epidural extension of tumor. There is minimal pathologic superior endplate compression fracture of L4. IMPRESSION: 1. No acute infectious or inflammatory findings are seen in the abdomen or pelvis. 2. There is evidence of diffuse osteolytic metastatic disease as detailed above noting a minimal pathologic superior endplate compression fracture of L4. 3. Rectosigmoid fecal retention and moderate constipation. 4. Significant dermal thickening is noted in the right breast. 5. Left-sided nephrolithiasis. 6. The uterus is enlarged and heterogeneous noting an intrauterine gestation. 7. Trace nonspecific free fluid is seen in the cul-de-sac. 8. An 11 mm indeterminant hypodensity in the posterior right lobe of the liver likely represents a hemangioma but is incompletely characterized. 9. Additional findings as above. ACT 112: Negative or not required by law. Electronically signed by: Leopoldo Regalado M.D. 04/09/2021 2:40 PM Transvaginal US 04/09/21 14:42 US OB transvaginal CLINICAL HISTORY: breast CA with mets - viability/dating Technique: Real-time sonographic images of the pelvic contents were obtained with transabdominal and transvaginal technique. COMPARISON: None available at the time of this dictation. Findings: A single intrauterine is identified. Yolk sac measures 0.35 cm, crown rump length measures 1.91 cm corresponding to estimated gestational age of 8 weeks 3 days. heart rate measures 172 bpm. There is a hypoechoic area adjacent to the gestational sac measuring 2.1 x 1.1 x 1.8 cm, compatible with subchorionic hemorrhage which is small in size. Nabothian cysts are seen. The right ovary measures 2.2 x 5.0 x 1.4 cm. The left ovary measures 2.3 x 1.3 x 1.5 cm. There is a likely corpus luteum on the right. Impression: Single live intrauterine . Based on crown-rump length, the estimated sonographic gestational age is 8 weeks 3 days. Small subchorionic hemorrhage is noted. ACT 112: Negative or not required by law. Electronically signed by: Epi Demarco M.D. 04/09/2021 10:53 PM Cervical Spine MRI 04/14/21 14:03 MR cervical spine wo/w con CLINICAL HISTORY: History of breast cancer with metastatic disease. Pain in the neck. Evaluate for metastatic disease.. COMPARISON: None. TECHNIQUE: Multiplanar multisequence images of the Cervical Spine were performed were performed with and without IV contrast. Contrast Volume: 5.5 ml of Gadavist FINDINGS: There is evidence for a pathologic compression fracture of the C6 vertebral body with loss of 80% of the height of the vertebral body. There is retropulsion of bone fragments into the spinal canal anteriorly and encroachment upon the spinal canal without compressing upon or deforming the spinal cord. Decreased CSF is seen surrounding the spinal cord at this level. However, there is CSF flow artifact present anterior to the vertebral bodies above and below the retropulsion related to the narrowing from the retropulsion. The heights of the remaining cervical vertebral bodies are maintained. The vertebral bodies are in anatomic alignment. Abnormal marrow edema is present within the C3, C4 and C6 vertebral bodies representing metastatic disease. This enhances following contrast administration. The odontoid is intact and the atlantoaxial articulation is within normal limits. The craniocervical junction is within normal limits. Homogeneous signal is seen within the spinal cord. There is no abnormal enhancement following contrast administration. The disc space heights are otherwise maintained. No disc protrusion/herniation is identified. IMPRESSION: 1. Enhancing metastatic disease involving the C3, C4 and C6 vertebral bodies. 2. There is pathologic compression fracture of C6 with retropulsion of bone fragments into the spinal canal. 3. While there is decrease in the AP diameter of the spinal canal, there is no compression upon the spinal cord at this level. 4. No abnormal enhancement within the spinal cord. ACT 112: Negative or not required by law. Electronically signed by: Kendell Mena M.D. 04/14/2021 3:35 PM Lumbar Spine MRI 04/14/21 14:03 MRI LUMBAR SPINE COMBO CLINICAL HISTORY: Breast cancer. COMPARISON STUDY: Abdominal CT dated 04/09/2021. TECHNIQUE: MRI of the lumbar spine is performed using various T1 and T2-weighted sequences in the axial and sagittal planes. Contrast-enhanced sequences are ac quired following the IV administration of 5.5 cc of Gadavist. FINDINGS: There is evidence of extensive osseous metastatic disease as seen throughout the lumbar spine and the sacrum. This involves all the lumbar vertebral bodies as well as the posterior elements. There is a mild acute to subacute pathologic compression fracture of L4. No retropulsed fragments are identified. Vertebral body height is otherwise maintained throughout the lumbar spine. Alignment is preserved. The transverse and spinous processes appear intact. There is no spondylolysis. Intervertebral discs: Normal in height and signal intensity. Spinal cord and central canal: Imaged portions of the spinal cord show normal morphology and signal intensity. The conus medullaris terminates at the level of L1. There is no evidence of abnormal postcontrast enhancement. L1-L2: Unremarkable. L2-L3: Unremarkable. L3-L4: Unremarkable. L4-L5: There is minimal posterior disc bulge. The central canal is clear. There is mild bilateral subarticular stenosis. No high-grade neural foraminal narrowing is identified. L5-S1: Unremarkable. Sacrum: There is evidence of multifocal sacral metastatic disease. Tarlov cysts are incidentally noted. Soft tissues: The paraspinous soft tissues are within normal limits. Retroperitoneum: The visualized retroperitoneal structures are grossly unremarkable but incompletely evaluated. Gravid uterus is partially visualized. IMPRESSION: 1. There is extensive osseous metastatic disease throughout the visualized lumbosacral spine and bony pelvis. 2. There is a mild acute to subacute pathologic compression fracture of L4. 3. No enhancing lesion is identified in the central canal, and there is no evidence of epidural extension of tumor. Dictated: 04/14/2021 1:38 PM Transcribed: 04/14/2021 2:07 PM [place] [id number] [email or web address] Electronically signed by: Leopoldo Regalado M.D. 04/14/2021 2:52 PM Thoracic Spine MRI 04/14/21 14:03 MRI OF THE THORACIC SPINE WITH AND WITHOUT CONTRAST CLINICAL HISTORY: Metastatic disease. COMPARISON: Thoracic spine radiographs March 31, 2021. Chest CT April 09, 2021. TECHNIQUE: Utilizing a 1.5 Emilie magnet and dedicated coil, multiplanar, multiecho imaging of the thoracic spine was performed before and after the intravenous administration of 5.5 cc. FINDINGS: Alignment of the thoracic spine is anatomic. Numerous foci of marrow replacement within the thoracic spine are noted. This is consistent with metastatic disease, as shown on chest CT of April 09, 2021. Thoracic cord signal and caliber are normal. There is a pathologic fracture of T8 with 40% loss of vertebral body height. There is no retropulsion. No epidural extension of tumor is identified within the thoracic spine. A T6 pathologic fracture is better depicted on the MRI of the cervical spine which will be reported separately. No disc herniations are identified. Additional skeletal lesions are noted within the ribs as well as the sternum. Neural foramen are suboptimally assessed on this exam but there is no evidence for severe neural foraminal stenosis. There may be mild multilevel neural foraminal stenosis. There are small bilateral pleural effusions. IMPRESSION: 1. Extensive metastatic disease within the thoracic spine. T8 pathologic fracture with 40% loss of vertebral body height. No retropulsion. 2. No epidural extension of tumor identified within the thoracic canal. 3. Patent central canal. At most mild multilevel neural foraminal narrowing. 4. Normal thoracic cord signal and caliber. ACT 112: Negative or not required by law. Electronically signed by: Kurtis Peralta M.D. 04/14/2021 1:50 PM Chest X-Ray 04/16/21 18:29 XR chest 2V PA/lateral CLINICAL HISTORY: pain at port site - ?placement, PTX? TECHNIQUE: AP and lateral radiographs of the chest was obtained. Comparison: Comparison is made to chest radiograph 04/10/2021 FINDINGS: Lines and tubes are stable. The cardiomediastinal silhouette is normal. The lungs are clear. Small bilateral pleural effusions are seen. No evidence of pneumothorax. IMPRESSION: 1. Satisfactory position of left portacatheter. No evidence of pneumothorax. 2. Small bilateral pleural effusions. ACT 112: Negative or not required by law. Electronically signed by: Epi Demarco M.D. 04/16/2021 10:07 PM Resident Activity Tracking Resident Involvement: Resident Care Provided Care Provided: Adult Hospital Medicine (1) Anemia Anemia type: unspecified type Qualified Code(s): D64.9 - Anemia, unspecified
[2021-04-17] MEDS: LIDOCAINE 5% 1 PATCH TD SCH ×2 (09:00)
[2021-04-17] MEDS: GABAPENTIN 300 MG CAP PO SCH (09:00)
[2021-04-17] MEDS ORDERED: dexAMETHasone 5 MG in SYRINGE 0 ML IV SCH (09:00)
[2021-04-17] MEDS: DOCUSATE SODIUM 100 MG CAP PO SCH ×2 (09:00→20:18)
[2021-04-17] MEDS: CYCLOBENZAPRINE HCL 10 MG TAB PO SCH ×3 (09:00→20:18)
[2021-04-17] MEDS: DULoxetine HCL 30 MG CAP PO SCH (09:01)
[2021-04-17] MEDS: POLYETHYLENE (MIRALAX) 17 GM PACK PO SCH (09:01)
[2021-04-17] MEDS: ENOXAPARIN INJ 40 MG/0.4 ML SYR SQ SCH (10:59)
[2021-04-17] MEDS: FILGRASTIM 480 MCG/1.6 ML VIAL SC SCH (10:59)
[2021-04-17] MEDS ORDERED: FILGRASTIM 300 MCG/ML VIAL SQ ONE (11:12)
[2021-04-17] MEDS ORDERED: KETOROLAC TROMETHAMINE 10 MG TABLET PO PRN (13:22)
[2021-04-17] MEDS: IBUPROFEN 600 MG TAB PO SCH ×2 (13:58→20:17)
--- NOTE | 2021-04-17 17:43 | Billing Data ---
Date of Service April 17, 2021 Coding Level of Care Code 78591 Subseq Hosp Care Lvl 3
[2021-04-17] MEDS: GABAPENTIN 600 MG TAB PO SCH (20:18)
[2021-04-18] MEDS: IBUPROFEN 600 MG TAB PO SCH ×4 (01:08→20:22)
[2021-04-18] MEDS: GABAPENTIN 300 MG CAP PO SCH (09:03)
[2021-04-18] MEDS: DOCUSATE SODIUM 100 MG CAP PO SCH ×2 (09:03→20:23)
[2021-04-18] MEDS: LIDOCAINE 5% 1 PATCH TD SCH ×2 (09:03)
[2021-04-18] MEDS: CYCLOBENZAPRINE HCL 10 MG TAB PO SCH ×3 (09:03→20:22)
[2021-04-18] MEDS: dexAMETHasone 1 MG TAB PO SCH (09:04)
[2021-04-18] MEDS: CHECK fentaNYL PATCH PLACEMENT SCH ×2 (09:04→15:26)
[2021-04-18] MEDS: POLYETHYLENE (MIRALAX) 17 GM PACK PO SCH ×2 (09:04→09:08)
[2021-04-18] MEDS: DULoxetine HCL 30 MG CAP PO SCH (09:04)
[2021-04-18] MEDS: FILGRASTIM 480 MCG/1.6 ML VIAL SC SCH (09:35)
[2021-04-18] MEDS: bisacodyL 10 MG SUPP PR PRN (09:40)
--- NOTE | 2021-04-18 10:58 | Hospitalist Progress Note ---
Date of Service April 18, 2021 Assessment & Plan (1) Metastatic breast cancer: Plan: Patient is a 35 year old female at 8 weeks with history of recently diagnosed triple positive metastatic breast cancer with lytic lesions to spine and hip admitted for intractable back and neck pain. Since admission patients patient has migrated primarily to her lumbar spine in addition to her hips BL. Pain management has been improving Metastatic Breast Cancer with Lytic Lesions - undergoing palliative radiation and chemotherapy per Oncology team for aggressive triple positive breast cancer - Pre-chemotherapy Echocardiogram ordered with EF 60-65% - bone biopsy to be done on 04/20 outpatient - daily Neupogen 480 mcg per Oncology recommendations - will forward CT scans of spine to PCP to discuss with spine onc regarding utility of surgical fixation/intervention to stabilize Pain Management -Pain Management consulted for assistance of above as well. 1. Continue Fentanyl 25 mcg every 72 hour patch for basal pain control. 2. Advised the patient to take Oxycodone 5mg x 4 hours if needed for additional pain relief. 4. Recommend Cymbalta, Toradol, Lidoderm patch, Flexeril. 5. Continue bowel regimen Colace and MiraLAX with backup Relistor. 6. Dexamethasone IV converted to PO - Started scheduled APAP and Toradol as well - MRI of her Cervical, Thoracic, and Lumbar spine obtained 04/14 -- showing extensive metastatic disease in lumbosacral, thoracic, and cervical spine. Pathologic fractures in C6, T8, L4. S/P D&E - D&E performed on 04/13 by [facility], no complications Anemia - In the setting of D&E procedure 04/13 - Hemodynamically stable at this time - Given IV Venofer 04/13 due to iron deficiency per Heme/Onc recs to optimize prior to chemotherapy - Monitor H/H Burning Sensation - differential includes neuropathy, jake. odd to have neural pain despite gabapentin and cymbalta being part of her pain regimen. - can attempt sucralfate/lidocaine mouth wash for relief of symptoms Diet: Regular Dispo: Med/Surg, awaiting approval of home health to be available on day of discharge Dvt ppx: Lovenox Code: Full (2) Anemia: Admission and Anticipated Discharge Date Admission Date: April 09, 2021 Supervising Physician Co-Signing Physician Notes I personally examined the patient and verified all esposito points of history and exam, discussed case, and agree with decision making with Dr Salmeron walking - very slowly and shuffling, and tires after about 10ft, but walking. pain overall doing better vitals noted nad heent nc at mmm breathing unlabored no accessory muscles good effort neck full AROM Metastatic breast cancer/intractable painpain overall doing better. Continue with multi modal med management, chemo, XRT. as it relates to spinal mets - d/w pt and - highly doubt she would benefit from preventative stabilizing surgery - and doesn't have radicular sx/etc right now - however, will ask that spine/oncology (not available here) are contacted to review situation and MRI so as to ensure comprehensive care for her in case my understanding of the situation is not correct -- this will be done tomorrow --for home likely will need walker, hospital bed w trapeze, shower chair, toilet seat/lift/bars, working towards dispo Home as her pain improves, mobility improves, and her comfort level with situation improves as well.patient's condition requires positioning of the body to alleviate pain, prevent contractures, and avoid respiratory infections - in a way that isn't workable in a normal bed. further due to spine pain, leg weakness, overall weakness, pt's condition requires special attachments (such as a trapeze attachment) not feasible to use on an ordinary bed. she is likely to be confined to a single room for a period of time - and very limited mobility due to pain/fatigeuability as it relates to the metastatic cancer and spinal metastases. otherwise as above Subjective Continues to be in bright spirits this morning. Doing well with getting up using the walker. States she is most tired when unable to lean on something for support. was able to sit in chair yesterday without issue. has started having some feeling of 'burning' on her tongue and inner thighs? denies the feeling being tingling or itchy. says it is a constant burning pain. denies it being irritation of vaginal mucosa. thinks it is secondary to chemotherapy. no issues elsewhere on mucosa. already on gabapentin for nerve pain. some constipation this morning. Review of Systems Review of Systems: All systems reviewed & are unremarkable except as noted in Subjective Physical Exam Physical Exam: Constitutional: thin, in no apparent distress, sitting comfortably in bed. Cardiac: RRR, no murmurs, gallops or rubs. Normal S1, S2 Pulm: CTA BL, no wheezes, rhonchi, crackles or rubs, moving air well throughout both lungs Chest: central port in place on L chest without surrounding erythema, swelling Psych: pleasant affect, appears to be coping well with ongoing illness process Results & Data Results & Data ([facility]) Vital Signs (Past 12 Hours) Vital Signs Temp Pulse Resp BP Pulse Ox 04/18/21 07:42 36.5 C 78 12 103/66 95 Resident Activity Tracking Resident Involvement: Resident Care Provided Care Provided: Adult Hospital Medicine (1) Anemia Anemia type: unspecified type Qualified Code(s): D64.9 - Anemia, unspecified
[2021-04-18] MEDS: ENOXAPARIN INJ 40 MG/0.4 ML SYR SQ SCH (11:50)
[2021-04-18] MEDS ORDERED: FIRST - Mouthwash BLM 5 ML UDP PO ONE ×2 (12:45→21:08)
--- NOTE | 2021-04-18 14:26 | Billing Data ---
Date of Service April 18, 2021 Coding Level of Care Code 41141 Subseq Hosp Care Lvl 3
[2021-04-18] MEDS: GABAPENTIN 600 MG TAB PO SCH (20:23)
[2021-04-19] MEDS: CHECK fentaNYL PATCH PLACEMENT SCH ×3 (00:09→16:10)
[2021-04-19] MEDS: IBUPROFEN 600 MG TAB PO SCH ×3 (03:26→13:08)
--- NOTE | 2021-04-19 05:53 | Hospitalist Progress Note ---
Date of Service April 19, 2021 Assessment & Plan (1) Metastatic breast cancer: Plan: Patient is a 35 year old female at 8 weeks with history of recently diagnosed triple positive metastatic breast cancer with lytic lesions to spine and hip admitted for intractable back and neck pain. Since admission patients patient has migrated primarily to her lumbar spine in addition to her hips BL. Pain management has been improving Metastatic Breast Cancer with Lytic Lesions - undergoing palliative radiation and chemotherapy per Oncology team for aggressive triple positive breast cancer - Pre-chemotherapy Echocardiogram ordered with EF 60-65% - Bone biopsy to be done on 04/20 outpatient - Daily Neupogen 480 mcg per Oncology recommendations - will forward CT scans of spine to PCP to discuss with spine onc regarding utility of surgical fixation/intervention to stabilize * Will reach out to Neuro-onc/NSGY at [facility] to clarify whether C6 retropulsion warrants surgical fixation Pain Management -Pain Management consulted for assistance of above as well. 1. Continue Fentanyl 25 mcg every 72 hour patch for basal pain control. 2. Advised the patient to take Oxycodone 5mg x 4 hours if needed for additional pain relief. 4. Recommend Cymbalta, Toradol, Lidoderm patch, Flexeril. 5. Continue bowel regimen Colace and MiraLAX with backup Relistor. 6. Dexamethasone IV converted to PO - Started scheduled APAP and Toradol as well - MRI of her Cervical, Thoracic, and Lumbar spine obtained 04/14 -- showing extensive metastatic disease in lumbosacral, thoracic, and cervical spine. Pathologic fractures in C6, T8, L4. S/P D&E - D&E performed on 04/13 [facility], no complications Anemia - In the setting of D&E procedure 04/13 - Hemodynamically stable at this time - Given IV Venofer 04/13 due to iron deficiency per Heme/Onc recs to optimize prior to chemotherapy - Monitor H/H Burning Sensation - differential includes neuropathy, jake. odd to have neural pain despite gabapentin and cymbalta being part of her pain regimen. - can attempt sucralfate/lidocaine mouth wash for relief of symptoms Diet: Regular Dispo: Med/Surg, awaiting approval of home health to be available on day of discharge Dvt ppx: Lovenox Code: Full (2) Anemia: Admission and Anticipated Discharge Date Admission Date: April 09, 2021 Subjective Overall level of pain is better this morning. Says it is slowly getting more managable, and she adds that she would like to go home. No numbness/tingling; bowel/bladder control is fine. Says mouth burning is ongoing and maybe worse. Feels like lips are getting chapped. No mouth ulcers. Still able to eat/drink but uncomfortable. No n/v. Review of Systems Review of Systems: as per HPI Physical Exam Physical Exam: General: Thin but well appearing 35-year-old female in [facility]; sitting upright upon my arrival. Cardiac: Normal rate and regular rhythm; S1 and S2 present with no murmurs, rubs, or gallops. Pulmonary: Good respiratory effort with symmetric expansion of the chest. No use of accessory muscles. Lungs were clear to auscultation bilaterally with no crackles or wheezes. Abdominal: Abdomen was soft, nondistended, and non-tender to palpation. Back/Extremities: Palpation down the spine does not reveal focal tenderness. Upper and lower extremities are warm and well perfused. Strength is 5/5 bilaterally in UE, LE. Sensation to light touch grossly intact. Results & Data Results & Data ([facility]) Vital Signs (Past 12 Hours) Vital Signs Temp Pulse Resp BP Pulse Ox Pulse Ox 04/18/21 22:38 36.7 C 72 14 109/72 99 04/18/21 20:20 99 Resident Activity Tracking Resident Involvement: Resident Care Provided Care Provided: Adult Hospital Medicine (1) Anemia Anemia type: unspecified type Qualified Code(s): D64.9 - Anemia, unspecified
[2021-04-19] MEDS: NYSTATIN 500,000 UNIT TAB PO SCH ×3 (08:11→16:09)
[2021-04-19] MEDS: DOCUSATE SODIUM 100 MG CAP PO SCH (08:11)
[2021-04-19] MEDS: POLYETHYLENE (MIRALAX) 17 GM PACK PO SCH (08:12)
[2021-04-19] MEDS: GABAPENTIN 300 MG CAP PO SCH (08:12)
[2021-04-19] MEDS: CYCLOBENZAPRINE HCL 10 MG TAB PO SCH ×2 (08:12→13:08)
[2021-04-19] MEDS: LIDOCAINE 5% 1 PATCH TD SCH ×2 (08:13)
[2021-04-19] MEDS: DULoxetine HCL 30 MG CAP PO SCH (08:13)
[2021-04-19] MEDS: dexAMETHasone 1 MG TAB PO SCH (08:13)
[2021-04-19] MEDS: fentaNYL 25 MCG/HR TDSY TD SCH (10:05)
[2021-04-19] MEDS ORDERED: FIRST - Mouthwash BLM 119 ML PO SCH (10:30)
[2021-04-19] MEDS: ENOXAPARIN INJ 40 MG/0.4 ML SYR SQ SCH (10:31)
--- NOTE | 2021-04-19 12:50 | Discharge Summary ---
Date of Service April 19, 2021 Admission HPI Per Admitting Provider Mrs. Burris is a 35 yo woman who was unfortunately diagnosed with metastatic breast cancer earlier this month who is being admitted to [facility] for pain control (due to metastatic lesions to the spine). Of note, she is (8 weeks gestation, dated via LMP). Her breast cancer and lytic bony lesions were first detected on a Chest CT scan done on 03/24/21 (ordered initially to rule out a pulmonary embolism in the setting of tachycardia and chest pain). The R breast lump was further evaluated via diagnostic mammography and an ultrasound guided fine needle aspiration on 03/29/21. Pathology returned showing ER/MA/Her-2-codi positive ductal carcinoma. Fine needle aspiration of a sentinel node also returned positive for metastatic disease. She met with an oncologist at [facility] (Dr. Perez) on 04/07/21 - at which time treatment options were reviewed. Her chemotherapy will be carried out locally at [facility] under the guidance of Dr. Han - whom she had her first office visit with on 04/08/21. Due to worsening of her back/neck pain, patient presented to the [facility] ED for IV pain medications. She stated that her and her have decided to terminate the in order to pursue aggressive medical treatment of her underlying malignancy. Meds: Takes no chronic medications Allergies: No known drug allergies Social Hx: No etoh or tobacco use. She was immunized against covid 19 (two shots) and contracted the virus on 03/22/21. She and are from [place]. She speaks Farsi primarily, in addition to some [place] - her is present at bedside and translates most complex conversational details. Family Hx: No known cancers In the ED, her vitals were stable. WBC was normal, Hgb low at 10.2. CMP returned normal. Covid 19 negative. UA ordered. Chest and abdominal/pelvic cat scans were ordered. She was given 4mg IV morphine and 4mg IV zofran. Admission Exam (Per Admitting) Constitutional Constitutional: WD/WN, vitals as above cooperative and comfortable; no acute distress Eyes: + anicteric sclerae ENMT: external ear and nose normal, oropharynx normal Neck: trachea midline Respiratory: normal respiratory effort, lungs clear to auscultation no cough Cardiovascular: RRR, no murmur, no edema Heart Sounds: normal S1 and normal S2 Extremities: no pedal edema Gastrointestinal (Abdomen): normal bowel sounds, soft, nontender, no hepatosplenomegaly Musculoskeletal: Head/Neck/Chest: normocephalic and head atraumatic Spine: + thoracic spinal tenderness Skin: no rashes, warm and dry Neurologic: moves all extremities Psychiatric: A+Ox3, euthymic affect General: Thin but well appearing 35-year-old female in [facility]; sitting upright upon my arrival. Cardiac: Normal rate and regular rhythm; S1 and S2 present with no murmurs, rubs, or gallops. Pulmonary: Good respiratory effort with symmetric expansion of the chest. No use of accessory muscles. Lungs were clear to auscultation bilaterally with no crackles or wheezes. Abdominal: Abdomen was soft, nondistended, and non-tender to palpation. Back/Extremities: Palpation down the spine does not reveal focal tenderness. Upper and lower extremities are warm and well perfused. Strength is 5/5 bilaterally in UE, LE. Sensation to light touch grossly intact. Discharge Data Consultations 04/09/21 12:47 ED Decision to Admit Stat 04/09/21 14:03 Consult General Surgery Routine Consult Obstetrics Routine 04/09/21 15:57 Consult Hematology Routine 04/10/21 10:53 Consult Health Information Management Stat 04/10/21 11:20 Burn CD for patient Routine 04/11/21 07:52 Consult Radiation Oncology Routine 04/11/21 11:38 Consult Pain Management Routine 04/19/21 10:08 Radiology Transfer Of Images Stat Procedures Performed Operation Date: 04/10/21 07:30 Actual Procedures p Placement of Left internal jugular vein A-Port Catheter(Left) - Jose Luis Alaniz MD Operation Date: 04/13/21 13:30 Actual Procedures p Dilation and Evacuation - Jasmin Gonsalez MD ---- Thoracic Spine MRI (04/14) "IMPRESSION: 1. Extensive metastatic disease within the thoracic spine. T8 pathologic fracture with 40% loss of vertebral body height. No retropulsion. 2. No epidural extension of tumor identified within the thoracic canal. 3. Patent central canal. At most mild multilevel neural foraminal narrowing. 4. Normal thoracic cord signal and caliber." Lumbar Spine MRI (04/14) "IMPRESSION: 1. There is extensive osseous metastatic disease throughout the visualized lumbosacral spine and bony pelvis. 2. There is a mild acute to subacute pathologic compression fracture of L4. 3. No enhancing lesion is identified in the central canal, and there is no evidence of epidural extension of tumor." Cervical Spine MRI (04/14) "IMPRESSION: 1. Enhancing metastatic disease involving the C3, C4 and C6 vertebral bodies. 2. There is pathologic compression fracture of C6 with retropulsion of bone fragments into the spinal canal. 3. While there is decrease in the AP diameter of the spinal canal, there is no compression upon the spinal cord at this level. 4. No abnormal enhancement within the spinal cord." Hospital Course (1) Metastatic breast cancer: Patient is a 35 year old female at 8 weeks with history of recently diagnosed triple positive metastatic breast cancer with lytic lesions to spine and hip admitted for intractable back and neck pain. Since admission patients pain has migrated primarily to her lumbar spine in addition to her hips BL. Pain management has been improving Intractable back pain sec to metastatic breast ca. Pain Management -- significant improvement prior to discharge - Pain Management consulted; initiated below regimen: 1. Fentanylpatch 25 mcg every 72 hours for basal pain control. 2. Oxycodone 5mg q4h PRN for additional pain relief. 3. Initiated Cymbalta, Lidoderm patch, Flexeril 4. Can take APAP 500mg q4h KRISTY/PRN upon discharge (scheduled while here) 5. Bowel regimen Colace and MiraLAX with backup Relistor. 6. Dexamethasone POinitiated while here -- taper over one-to-two weeks, extend longer if indicated (would speak with oncology) - Continue PT, OT, home health upon discharge Metastatic Breast Cancer with Lytic Lesions - Undergoing palliative radiation and chemotherapy per [facility] for aggressive triple-positive breast cancer (biopsy-confirmed) - Pre-chemotherapy: Echocardiogram ordered with EF 60-65% - Bone biopsy scheduled for 04/20 (as outpatient, through [facility]) - Continue daily Neupogen 480 mcg per Oncology recommendations - See "C6 retropulsion" and "pain management", as outlined below C6 Retropulsion - MRI demonstrating C6 vertebral retropulsion without radiologic evidence of cord compression - No FNDs on exam, no evidence of cord compression / radiculopathy - [facility] and NSGY contacted while here given C6 retropulsion: Reached out to [facility] (Dr. Harlan Haney) to discuss case and ?need for potential decompression/stabilization at some point / outpatient follow-up for the C6 retropulsion. Actively awaiting their call at time of discharge; they are reviewing images and were planning to d/w NSGY. As she has no radicular symptoms and is stable from a pain perspective, will proceed with discharge and closely follow-up with recommendations / inform PCP Dr. Curtis. Status-post D&E - D&E performed on 04/13 by [facility] without complication in setting of needs for chemotherapy Anemia -- improved prior to discharge - In the setting of D&E procedure 04/13; Hgb increased to >10 (from ~7.8) prior to discharge - Given IV Venofer 04/13 due to iron deficiency per Heme/Onc recs to optimize prior to chemotherapy - Will require working with H/O moving forward to clarify if further IV iron infusions are indicated - Recommend checking CBC within 1 week following discharge Cheilosis - Patient reporting burning sensation on lips and tongue, with mild peeling of the lips and a single superficial ulceration on upper lip appreciated on day of discharge - Suspect secondary to chemotherapeutic. Will have to closely monitor as an outpatient to ensure this does not worsen / involve the entire mouth / skin - e.g., SJS-like reaction - Magic Mouthwash p.r.n. -- can also consider decadron RINSE (already on PO) as outpatient if worsening pain without obvious skin changes (2) Anemia: Supervising Physician Co-Signing Physician Notes Resident Physician Supervision Note: I independently interviewed and examined the patient and verified the esposito history and physical, reviewed labs and image studies and agree with resident Dr. Feliciano findings and care plan.
[2021-04-19] MEDS ORDERED: FIRST - Mouthwash BLM 119 ML PO ONE (17:47)
== END 2021-04-19 17:48 | disposition home health service (06) | DRG 832 ==
LOC: ED 11:30 → 3E 13:54 → SUATTDRO 13:54 → 3E 17:55
DX: E61.1 Iron deficiency; T45.1X5A Adverse effect of antineoplastic and immunosuppressive drugs, initial encounter; C79.51 Secondary malignant neoplasm of bone; C50.211 Malignant neoplasm of upper-inner quadrant of right female breast; M84.58XA Pathological fracture in neoplastic disease, other specified site, initial encounter for fracture; G89.3 Neoplasm related pain (acute) (chronic); Z86.16 Personal history of COVID-19; Z17.0 Estrogen receptor positive status [ER+]; O99.891 Other specified diseases and conditions complicating pregnancy; C78.7 Secondary malignant neoplasm of liver and intrahepatic bile duct; K13.0 Diseases of lips; M49.82 Spondylopathy in diseases classified elsewhere, cervical region; O9A.111 Malignant neoplasm complicating pregnancy, first trimester; D62 Acute posthemorrhagic anemia; O04.89 (Induced) termination of pregnancy with other complications; M99.08 Segmental and somatic dysfunction of rib cage; O99.351 Diseases of the nervous system complicating pregnancy, first trimester

== ENCOUNTER 2024-04-16 09:59 | Inpatient (IN) ==
--- NOTE | 2024-04-16 10:50 | Emergency Department Note ---
Impression & Plan Metastatic breast cancer ED Provider Note CHIEF COMPLAINT: Illness HISTORY OF PRESENTING ILLNESS: The patient is a pleasant 38-year-old female who arrives to the emergency department for evaluation of persistent headache, with nausea and vomiting. The patient reports she was seen at [facility] for persistent headache with nausea and vomiting since MRI imaging performed on 04/11. The patient does report she has metastatic breast cancer which she is currently not receiving treatment for. She states she received one dose of IV chemotherapy and then declined treatment to opt for oral chemotherapy. She states she has been unable to keep down food or fluids, therefore cannot take oral treatment. She reports headaches have been chronic, however, worsening. She denies chest pain, abdominal pain, dysuria, diarrhea, or constipation. REVIEW OF SYSTEMS: See HPI for pertinent positives and pertinent negatives. ALLERGIES: Heparin MEDICATIONS: See below PAST MEDICAL HISTORY: See below PHYSICAL EXAM: VITALS: Vitals are noted on the nurse's note and reviewed by myself. Vital signs stable. GENERAL: 38-year-old female, in no acute distress, nondiaphoretic, well- developed well-nourished. SKIN: The skin was without rashes, erythema, edema, or bruising. HEAD: Normocephalic atraumatic. EARS: External auditory canals clear, tympanic membranes pearly trevino without erythema or effusion bilaterally. EYES: Pupils equal round and reactive to light and accommodation. Conjunctivae without injection, sclerae without icterus. Extraocular movements intact. No nystagmus present. NECK: Supple without nuchal rigidity. Cervical spine is nontender. HEART: Regular rate and rhythm without murmurs gallops or rubs. LUNGS: Clear to auscultation bilaterally without wheezes, rales or rhonchi. No retractions or accessory muscle use. ABDOMEN: Positive bowel sounds x 4. Soft, nontender, without masses or organomegaly. Zamudio sign negative. No guarding or rebound tenderness. MUSCULOSKELETAL: No muscle atrophy, erythema, or edema noted. Strength 4/5 throughout. NEURO: Patient was alert and oriented to person place and time. No focal neurological deficits. DIFFERENTIAL DIAGNOSIS: Migraine headache, meningitis, sinusitis, CO exposure, ICH, SAH, infection, tumor, metastatic disease, headache, sinus thrombosis, arterial dissection, as well as other pathologies. ED COURSE AND MEDICAL DECISION MAKING: HISTORY FROM INDEPENDENT HISTORIAN: at bedside as secondary historian. MEDICATIONS GIVEN: NSS 1L bolus, ketorolac 15mg IVP, Zofran 4mg IVP, acetaminophen 1,000mg IVPB, dexamethasone 10mg IVP, morphine 4mg IVP. INTERPRETATION OF LABS: I interpreted the labs with full lab results as below in the lab section of this note. Pertinent lab results discussed in the MDM section below. INTERPRETATION OF IMAGING: Imaging studies were interpreted by myself and read by radiology as per the imaging section of this note. EXTERNAL RECORDS REVIEWED: MRI imaging of brain from 03/11 reviewed from [facility]. CHRONIC MEDICAL/SOCIAL CONDITIONS AFFECTING CARE: Metastatic breast cancer MDM SUMMARY: The patient is a 38-year-old female who arrives to the emergency department for evaluation of the above-stated complaint. Patient arrived during a time of high acuity, and high-volume. Initial workup was performed in triage including accessing the patient's port, CBC, CMP, urinalysis. CBC shows, no leukocytosis, with a stable anemia. CMP is unremarkable. Urinalysis shows no concerning signs of infection. Upper respiratory BioFire panel negative for infection. Upon evaluation of the patient it is noted the patient has metastatic breast cancer, with mets to the brain. The patient is complaining of significant headache, with nausea and vomiting. She was provided 1 L normal saline, 15 mg of IV Toradol, 1000 mg IV acetaminophen, 4 mg of IV Zofran. The patient does follow with [facility] in [place] for hematology/oncology, as well as neurosurgery. She had a MARKETING SERVICES VICE PRESIDENT shunt placed in January of last year for findings of worsening edema in the posterior fossa with stable mass effect on the midbrain and fourth ventricle. Findings were concerning for developing hydrocephalus with ventricular dilatation. The patient was transferred to [facility] in [place], for placement of MARKETING SERVICES VICE PRESIDENT shunt. The patient was offered IV chemotherapy, however after 1 treatment declined as she was still interested in being able to carry a . The patient states she has been attempting to transition to oral chemotherapy, however she has had worsening nausea and vomiting and would not qualify for oral chemotherapy due to inability to keep down fluids and food. Patient had a repeat MRI performed at [facility], which shows vasogenic edema, with cerebellar tonsillar herniation. There is also worsening of the metastatic disease noted. Contact was made with Dr. Montenegro from [facility] [place]oncology who stated the patient would require neurosurgical consultation as well as radiation/oncology consultation with likely transfer. Dr. Montenegro recommended CT imaging of the head with IV dexamethasone administration. CT imaging was performed with results showing interval placement of a right frontal ventriculostomy with decompression of the lateral and third ventricles. Slit- like ventricles raises the possibility of over shunting. Mild progression of metastatic disease with increase in significant mass effect within the posterior fossa, as described above. Increased effacement of the fourth ventricle with possible mild inferior displacement of the cerebellar tonsils. These findings were discussed with [facility] triage provider Dr. Ophelia Lind who consulted neurosurgery provider Dr. Rehman. Dr. Lind informed after consultation, and thorough discussion with neurosurgery, it was ultimately determined the patient will not benefit from transfer, and palliative care is the recommendation. The patient and her family were informed their request for admission to this facility is now able to occur and we will consult [facility] hematology/oncology, Dr. Coats during her stay. Dr. Staples from the [facility] hospitalist group was notified of the patient and agreed to accept her for admission. Please refer to his documentation, as well as Dr. Coats's documentation for further patient workup and care. DIAGNOSIS: Metastatic disease The patient's case was discussed with Dr. Cordero, who agreed with my evaluation and treatment plan. The chart was completed utilizing [employer] Speech voice recognition software. Grammatical errors, random word insertions, pronoun errors, and incomplete sentences are an occasional consequence of this system due to software limitations, ambient noise, and hardware issues. Any formal questions or concerns about the content, text, or information contained within the body of this dictation should be directly addressed to the provider for clarification. 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 ASCUS with positive high risk HPV Right knee pain Cheilosis Osteolytic lesion due to metastasis Metastatic breast cancer (Chronic) Anemia (Acute) Medical History Encounter for pre-operative examination Acute hyponatremia Acute shoulder pain D&C performed at 8 weeks Surgical History History of brain shunt Port-A-Cath in place left chest history Leg fracture Ovarian cyst History of nasal surgery Family History Uncle Myocardial infarction Cancer Heart disease Denies family history of Ovarian cancer Prostate cancer Breast cancer Colorectal cancer Social History Smoking Status: Never smoker Hx Alcohol Use: No Hx Substance Use: No Preferred Language: [place] Communication Ability: Effective Visual Impairment: No Limitations Hearing Ability: Normal 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 Beliefs That Will Affect Care: None marital status: Current Living Situation: Spouse current occupational status: student How many Children do You have: 0 Feels Safe at Home: Yes during the past year weight has: remained stable Assistive Devices: Glasses, Hospital Bed and Walker Allergies Allergies Allergy/AdvReac Type Severity Reaction Status Date / Time heparin Allergy Verified 03/11/24 09:17 Home Meds Home Medications Medication Instructions Recorded Confirmed multivitamin 1 tab PO DAILY 05/27/21 04/16/24 acetaminophen 325 mg tablet 325 mg PO Q4H PRN Pain 04/16/24 04/16/24 cholecalciferol (vitamin D3) 50 2,000 unit PO DAILY 04/16/24 04/16/24 mcg (2,000 unit) tablet (Vitamin D3) ibuprofen 200 mg tablet (Advil) 200 mg PO DIRECTED PRN Pain 04/16/24 04/16/24 Results & Data (ED) Vital Signs Vital Signs - 24 hr 04/16/24 10:02 04/16/24 11:39 04/16/24 11:47 Temperature 36.3 C L Temperature Source Skin Pulse Rate 80 79 70 Pulse Rate from SpO2 Sensor 76 Respiratory Rate 20 16 Respiratory Effort / Characteristics Non-Labored Spontaneous Respiratory Depth Normal Respiratory Pattern Regular Blood Pressure 122/83 109/78 Blood Pressure Mean 96 88 Pulse Oximetry 98 97 Oxygen Delivery Method Room Air Room Air Sepsis Recent Fever Within 48 Hours No Sepsis New/Unexplained Change in Mental Status N/A Sepsis Action Taken by Nursing No Action Required 04/16/24 12:39 04/16/24 13:00 04/16/24 13:00 Temperature Temperature Source Pulse Rate 72 Pulse Rate from SpO2 Sensor Respiratory Rate 20 Respiratory Effort / Characteristics Respiratory Depth Respiratory Pattern Blood Pressure 119/85 119/85 Blood Pressure Mean 91 91 Pulse Oximetry Oxygen Delivery Method Sepsis Recent Fever Within 48 Hours Sepsis New/Unexplained Change in Mental Status Sepsis Action Taken by Nursing 04/16/24 13:03 04/16/24 13:12 04/16/24 13:18 Temperature Temperature Source Pulse Rate 76 82 71 Pulse Rate from SpO2 Sensor 77 80 Respiratory Rate 20 14 22 Respiratory Effort / Characteristics Respiratory Depth Respiratory Pattern Blood Pressure Blood Pressure Mean Pulse Oximetry 98 99 Oxygen Delivery Method Sepsis Recent Fever Within 48 Hours Sepsis New/Unexplained Change in Mental Status Sepsis Action Taken by Nursing 04/16/24 13:30 04/16/24 13:30 04/16/24 13:42 Temperature Temperature Source Pulse Rate 68 Pulse Rate from SpO2 Sensor Respiratory Rate 30 H Respiratory Effort / Characteristics Respiratory Depth Respiratory Pattern Blood Pressure 124/95 124/95 Blood Pressure Mean 113 113 Pulse Oximetry Oxygen Delivery Method Sepsis Recent Fever Within 48 Hours Sepsis New/Unexplained Change in Mental Status Sepsis Action Taken by Nursing 04/16/24 13:54 04/16/24 14:21 04/16/24 14:30 Temperature Temperature Source Pulse Rate 68 68 75 Pulse Rate from SpO2 Sensor 76 Respiratory Rate 15 20 16 Respiratory Effort / Characteristics Respiratory Depth Respiratory Pattern Blood Pressure 133/91 139/91 Blood Pressure Mean 105 107 Pulse Oximetry 96 98 Oxygen Delivery Method Room Air Room Air Sepsis Recent Fever Within 48 Hours Sepsis New/Unexplained Change in Mental Status Sepsis Action Taken by Nursing 04/16/24 15:12 Temperature Temperature Source Pulse Rate 70 Pulse Rate from SpO2 Sensor 73 Respiratory Rate 20 Respiratory Effort / Characteristics Respiratory Depth Respiratory Pattern Blood Pressure Blood Pressure Mean Pulse Oximetry 95 Oxygen Delivery Method Room Air Sepsis Recent Fever Within 48 Hours Sepsis New/Unexplained Change in Mental Status Sepsis Action Taken by [facility] Medications Current Medication List: was personally reviewed by me Laboratory Data Attestation: I reviewed the patient's lab results. 04/16/24 10:50 04/16/24 10:50 Lab Results 04/16/24 04/16/24 04/16/24 Range/Units 10:50 11:35 14:35 WBC 5.85 (4.8-10.8) K/ul RBC 4.09 L (4.20-5.40) M/uL Hgb 11.9 L (12.0-16.0) g/dl Hct 36.4 L (37.0-47.0) % MCV 89.0 (80.0-100.0) fL MCH 29.1 (25.0-34.0) pg MCHC 32.7 (32.0-36.0) g/dL RDW Std Deviation 45.4 (36.4-46.3) fL RDW Coeff of Abigail 14.0 (11.5-14.5) % Plt Count 284 (130-400) K/uL MPV 8.9 L (9.4-12.4) fL Immature Gran % (Auto) 0.2 % Neut % (Auto) 77.1 % Lymph % (Auto) 17.8 % [place] % (Auto) 4.4 % Eos % (Auto) 0.2 % Baso % (Auto) 0.3 % Neut # (Auto) 4.51 (1.40-6.50) K/uL Lymph # (Auto) 1.04 L (1.20-3.40) K/uL [place] # (Auto) 0.26 (0.11-0.59) K/uL Eos # (Auto) 0.01 (0.00-0.50) K/uL Baso # (Auto) 0.02 (0.00-0.20) K/uL Immature Gran # (Auto) 0.01 (0.01-0.20) K/uL Sodium 139 (136-145) mmol/L Potassium 3.6 (3.5-5.1) mmol/L Chloride 105 (98-107) mmol/L Carbon Dioxide 28 (21-32) mmol/L Anion Gap 6 (3-11) BUN 22 (6-23) mg/dl Creatinine 0.53 L (0.6-1.2) mg/dl Est Cr Clr Drug Dosing 129.2 ml/min eGFR 119.83 BUN/Creatinine Ratio 41.5 H (10-20) Glucose 114 H (70-99(Fasting)) mg/dl Calcium 9.3 (8.6-10.3) mg/dl Total Bilirubin 0.7 (0.2-1.0) mg/dl AST 24 (13-39) U/L ALT 21 (7-52) U/L Alkaline Phosphatase 45 (34-104) U/L Total Protein 7.1 (6.0-8.3) gm/dl Albumin 4.5 (3.4-5.0) gm/dl Globulin 2.6 (2.5-4.0) gm/dl Albumin/Globulin Ratio 1.7 (0.9-2) Urine Color Yellow Urine Appearance Clear (Clear) Urine pH 7.5 (4.5-7.5) Ur Specific [place] 1.025 (1.000-1.030) Urine Protein Negative (Negative) Urine Glucose (UA) Negative (Negative) Urine Ketones Trace H (Negative) Urine Blood Negative (Negative) Urine Nitrite Negative (Negative) Urine Bilirubin Negative (Negative) Urine Urobilinogen Negative (Negative) Ur Leukocyte Esterase Negative (Negative) Adenovirus (PCR) Not Detected (NotDetected) B. pertussis DNA (PCR) Not Detected (NotDetected) B.parapertussis DNA PCR Not Detected (NotDetected) C. pneumoniae DNA (PCR) Not Detected (NotDetected) Coronavirus OC43 (PCR) Not Detected (NotDetected) Coronavirus HKU1 (PCR) Not Detected (NotDetected) Coronavirus 229E (PCR) Not Detected (NotDetected) SARS-CoV-2 (PCR) Not Detected (NotDetected) Coronavirus NL63 (PCR) Not Detected (NotDetected) Human Metapneumovir PCR Not Detected (NotDetected) Influenza Type A (PCR) Not Detected (NotDetected) Influenza Type B (PCR) Not Detected (NotDetected) M. pneumoniae (PCR) Not Detected (NotDetected) Parainfluenza 1 (PCR) Not Detected (NotDetected) Parainfluenza 2 (PCR) Not Detected (NotDetected) Parainfluenza 3 (PCR) Not Detected (NotDetected) Parainfluenza 4 (PCR) Not Detected (NotDetected) RSV (PCR) Not Detected (NotDetected) Entero/Rhino (PCR) Not Detected (NotDetected) Administered Medications Discontinued Medications Dexamethasone Sodium Phosphate (DexamethasonePf 10 Mg/Ml Vial) 10 mg IV NOW ONE Stop: 04/16/24 11:53 Last Admin: 04/16/24 12:05 Dose: 10 mg Documented By: MSG Sodium Chloride (Nss) 1,000 mls @ 999 mls/hr IV .Q1H1M ONE Stop: 04/16/24 12:14 Last Infusion: 04/16/24 13:06 Dose: Infused Documented By: Admin: 04/16/24 11:24 Dose: 999 mls/hr Documented By: Acetaminophen (Ofirmev) 1,000 mg in 100 mls @ 400 mls/hr IV NOW STA Stop: 04/16/24 11:28 Last Infusion: 04/16/24 12:02 Dose: Infused Documented By: Admin: 04/16/24 11:24 Dose: 400 mls/hr Documented By: Ketorolac Tromethamine (Ketorolac Tromethamine 15 Mg/Ml Vial) 15 mg IV NOW ONE Stop: 04/16/24 11:15 Last Admin: 04/16/24 11:25 Dose: 15 mg Documented By: Morphine Sulfate (Morphine Sulfate 4 Mg/Ml 1 Ml Carp\Vial) 4 mg IV NOW STA Stop: 04/16/24 13:06 Last Admin: 04/16/24 13:09 Dose: 4 mg Documented By: DANE Ondansetron HCl (Ondansetron Inj 2 Mg/Ml 2 Ml Vial) 4 mg IV NOW STA Stop: 04/16/24 11:15 Last Admin: 04/16/24 11:24 Dose: 4 mg Documented By: Imaging Data Attestation: I personally reviewed and interpreted this imaging study as follows: Radiologist's Impression: Chest X-Ray 04/16/24 11:30 XR chest 1V portable CLINICAL HISTORY: viral sx COMPARISON STUDY: 07/23/2022 FINDINGS: Stable left chest port. Heart size and pulmonary vasculature are normal. No effusion or consolidation. IMPRESSION: No pneumonia seen. ACT 112: Negative or not required by law. Electronically signed by: Oswaldo Delgado M.D. 04/16/2024 11:[address] 04/16/24 12:19 CT OF THE HEAD WITHOUT CONTRAST CLINICAL HISTORY: Metastatic disease. Nausea, vomiting and headaches. COMPARISON STUDY: MRI of the brain February 01, 2024. Head CT February 04, 2024. CT DOSE: 625.8 mGy.cm TECHNIQUE: Helical axial images of the head were obtained without IV contrast. Automated exposure control was utilized for the study. A dose lowering technique was utilized adhering to the principles of ALARA. FINDINGS: No acute intracranial hemorrhage is present. Multiple hyperdense intra-axial lesions consistent with metastases are again noted. Associated vasogenic edema is present. Edema is greatest within the left cerebellar hemisphere. Effacement of the fourth ventricle has increased since exam of February 04, 2024. Overall, mass effect within the posterior fossa has increased. There may be inferior displacement of the cerebellar tonsils. Interval placement of a right frontal ventriculostomy is noted. The lateral ventricles are slit-like. The tip is within the third ventricle. There are no extra-axial collections. There are no findings to suggest acute dural sinus stenosis or acute territorial infarct. IMPRESSION: 1. Interval placement of a right frontal ventriculostomy with decompression of the lateral and third ventricles. Slit-like ventricles raises the possibility of over shunting. 2. Mild progression of metastatic disease with increase in significant mass effect within the posterior fossa, as described above. Increased effacement of the fourth ventricle with possible mild inferior displacement of the cerebellar tonsils. ACT 112: Negative or not required by law. Electronically signed by: Kurtis Peralta M.D. 04/16/2024 1:49 PM Discharge Plan Visit Data Chief Complaint: Illness Stated Complaint: NAUSEA, HEADACHE ED Provider: Ryan Cordero ED Midlevel Provider: Carmenza Garibay Discharge Problem: Metastatic breast cancer Forms Stand Alone Forms: [facility] Prescriptions Prescriptions: No Action multivitamin Tablet 1 tab PO DAILY acetaminophen 325 mg tablet 325 mg PO Q4H PRN (Reason: Pain) ibuprofen [Advil] 200 mg Tablet 200 mg PO DIRECTED PRN (Reason: Pain) cholecalciferol (vitamin D3) [Vitamin D3] 50 mcg (2,000 unit) tablet 2,000 unit PO DAILY Referrals Referrals: Gwendolyn Han MD [Primary Care Provider] -
[2024-04-16 11:10] LABS: Basophils # (auto) 0.02 K/uL (0.00-0.20); Basophils % (auto) 0.3 %; Eosinophils # (auto) 0.01 K/uL (0.00-0.50); Eosinophils % (auto) 0.2 %; Hematocrit (blood only) 36.4 % (37.0-47.0); Hemoglobin 11.9 g/dl (12.0-16.0); Immature Granulocytes # (auto) 0.01 K/uL (0.01-0.20); Immature Granulocytes % (auto) 0.2 %; Lymphocytes # (auto) 1.04 K/uL (1.20-3.40); Lymphocytes % (auto) 17.8 %; Mean Corpuscular Hemoglobin 29.1 pg (25.0-34.0); Mean Corpuscular Hgb Conc 32.7 g/dL (32.0-36.0); Mean Platelet Volume 8.9 fL (9.4-12.4); Monocytes # (auto) 0.26 K/uL (0.11-0.59); Monocytes % (auto) 4.4 %; Neutrophils # (auto) 4.51 K/uL (1.40-6.50); Neutrophils % (auto) 77.1 %; Platelet Count 284 K/uL (130-400); RDW Standard Deviation 45.4 fL (36.4-46.3); Red Blood Count 4.09 M/uL (4.20-5.40); White Blood Count 5.85 K/ul (4.8-10.8)
[2024-04-16] MEDS: ACETAMINOPHEN 1,000 MG/100 ML VIAL IV STA (11:24)
[2024-04-16] MEDS: ONDANSETRON INJ 2 MG/ML 2 ML VIAL IV STA (11:24)
[2024-04-16] MEDS: SODIUM CHLORIDE 0.9% 1,000 ML IV ONE (11:24)
[2024-04-16] MEDS: KETOROLAC TROMETHAMINE 15 MG/ML VIAL IV ONE (11:25)
[2024-04-16 11:31] LABS: Albumin Globulin Ratio 1.7 (0.9-2); Albumin Level 4.5 gm/dl (3.4-5.0); BUN Creatinine Ratio 41.5 (10-20); Bilirubin,Total 0.7 mg/dl (0.2-1.0); Calcium 9.3 mg/dl (8.6-10.3); Creatinine Clr Calc Pharmacy 129.2 ml/min; Globulin 2.6 gm/dl (2.5-4.0); Potassium 3.6 mmol/L (3.5-5.1); Total Protein 7.1 gm/dl (6.0-8.3)
--- NOTE | 2024-04-16 11:54 | XRay Report ---
XR chest 1V portable CLINICAL HISTORY: viral sx COMPARISON STUDY: 07/23/2022 FINDINGS: Stable left chest port. Heart size and pulmonary vasculature are normal. No effusion or con solidation. IMPRESSION: No pneumonia seen. ACT 112: Negative or not required by law. Electronically signed by: Oswaldo Delgado M.D. 04/16/2024 11:53 AM
[2024-04-16] MEDS: dexAMETHasone**PF** 10 MG/ML VIAL IV ONE (12:05)
[2024-04-16 12:42] LABS: Adenovirus PCR Not Detected (NotDetected); Bordetella parapertussis PCR Not Detected (NotDetected); Bordetella pertussis PCR Not Detected (NotDetected); Chlamydia pneumoniae PCR Not Detected (NotDetected); Coronavirus 229E PCR Not Detected (NotDetected); Coronavirus CoV-2 (COVID19)PCR Not Detected (NotDetected); Coronavirus HKU1 PCR Not Detected (NotDetected); Coronavirus NL63 PCR Not Detected (NotDetected); Coronavirus OC43PCR Not Detected (NotDetected); Human Metapneumovirus PCR Not Detected (NotDetected); Influenza A PCR Not Detected (NotDetected); Influenza B PCR Not Detected (NotDetected); Mycoplasma pneumoniae PCR Not Detected (NotDetected); Parainfluenza Virus 1 PCR Not Detected (NotDetected); Parainfluenza Virus 2 PCR Not Detected (NotDetected); Parainfluenza Virus 3 PCR Not Detected (NotDetected); Parainfluenza Virus 4 PCR Not Detected (NotDetected); Respiratory Syncytial VirusPCR Not Detected (NotDetected); Rhinovirus/Enterovirus PCR Not Detected (NotDetected)
[2024-04-16] MEDS: MoRPHine SULFATE 4 MG/ML 1 ML CARP\\VIAL IV STA (13:09)
--- NOTE | 2024-04-16 13:51 | CT Scan Report ---
CT OF THE HEAD WITHOUT CONTRAST CLINICAL HISTORY: Metastatic disease. Nausea, vomiting and headaches. COMPARISON STUDY: MRI of the brain February 01, 2024. Head CT February 04, 2024. CT DOSE: 625.8 mGy.cm TECHNIQUE: Helical axial images of the head were obtained without IV contrast. Automated exposure con trol was utilized for the study. A dose lowering technique was utilized adhering to the principles o f ALARA. FINDINGS: No acute intracranial hemorrhage is present. Multiple hyperdense intra-axial lesions consis tent with metastases are again noted. Associated vasogenic edema is present. Edema is greatest within the left cerebellar hemisphere. Effacement of the fourth ventricle has increased since exam of Decem 2023. Overall, mass effect within the posterior fossa has increased. There may be inferior di splacement of the cerebellar tonsils. Interval placement of a right frontal ventriculostomy is noted. The lateral ventricles are slit-like. The tip is within the third ventricle. There are no extra-axia l collections. There are no findings to suggest acute dural sinus stenosis or acute territorial infar ct. IMPRESSION: 1. Interval placement of a right frontal ventriculostomy with decompression of the lateral and third ventricles. Slit-like ventricles raises the possibility of over shunting. 2. Mild progression of metastatic disease with increase in significant mass effect within the posteri or fossa, as described above. Increased effacement of the fourth ventricle with possible mild inferio r displacement of the cerebellar tonsils. ACT 112: Negative or not required by law. Electronically signed by: Kurtis Peralta M.D. 04/16/2024 1:49 PM
[2024-04-16 15:02] LABS: Appearance Urine Clear (Clear); Bilirubin Urine Negative (Negative); Blood Urine Negative (Negative); Color Urine Yellow; Glucose Urine UA Negative (Negative); Ketones Urine Trace (Negative); Leukocyte Esterase Urine Negative (Negative); Nitrite Urine Negative (Negative); Protein Urine Negative (Negative); Specific Gravity Urine 1.025 (1.000-1.030); Urobilinogen Urine Negative (Negative); pH Urine 7.5 (4.5-7.5)
--- OUTSIDE RECORDS SUMMARY | 2024-04-16 15:04 | External Medical Summary | Summary of Care ---
Author Name Unknown Organization [facility] Address [address] [place] [address] Phone [phone] Care Team Providers Care Building Drafting Officer Name Role Phone Gwendolyn Han MD Primary Care Provider [phone] Encounter Details Date Type Department Care Team (Late st Contact Info) Description 04/11/2024 10:45 AM EST Nurse Only Hematology Oncology [facility] [address], [place] [phone] [place], Nurse Lab Hem/Onc [address] [place] [address] Arrived Allergies Active Allergy Reactions Criticality Noted Date Comments Heparin Unknown 02/22/2024 Per patient - cannot have Heparin as it contains a pork product. Please do not use heparin for port flush. documented as of this encounter (statuses as of 04/11/2024) Medications Glucosamine-Chondro itin Max St Oral Capsule Take 1 Capsule by mouth daily at noon. 4 Active Calcium Citrate-Vitamin D 500-10 MG-MCG Oral Tablet Chewable Take 1 Tablet by mouth in the morning and 1 Tablet in the evening. 4 Active levETIRAcetam 500 MG Oral Tablet (Keppra) Take 1 Tablet by mouth in the morning and 1 Tablet before bedtime. 120 Tablet 3 4 Active Famotidine 20 MG Oral Tablet (Pepcid) Take 1 Tablet by mouth in the morning and 1 Tablet before bedtime. 60 Tablet 11 4 Active Ondansetron 8 MG Oral Tablet Disintegrating (Zofran) Place 1 Tablet on tongue to dissolve every 8 hours as needed for Nausea. 30 Tablet 02/21/2024 12:10 PM EST 5 Active Prochlorperazine Maleate 5 MG Oral Tablet (Compazine) Take 1 Tablet by mouth every 6 hours as needed for Nausea (IF ZOFRAN DOES NOT HELP). 30 Tablet 02/21/2024 12:10 PM EST 5 Active Acetaminophen 325 MG Oral Tablet (Tylenol)Indication s:Brain compression (HCC) Take 1 Tablet by mouth every 4 hours as needed for Pain, Breakthrough . Maximum of 3000mg per 24 hours. 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 With or without food. 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 For 14 days followed by 7-day rest period. Take within 30 minutes of meal. Do not crush or cut.. 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 For 14 days followed by 7-day rest period. Take within 30 minutes of meal. Do not crush or cut.. 84 Tablet 5 03/05/2024 11:59 AM EST 5 Active Cholecalciferol 50 MCG (2000 UT) Oral TabletIndications:M etastasis from HER2 positive carcinoma of breast (HCC) Take 50 mcg by mouth in the morning. 30 Tablet 5 5 Active dexAMETHasone 4 MG Oral Tablet (Decadron)Indicatio ns:Metastasis to brain (HCC) Take 1 Tablet by mouth in the morning and 1 Tablet before bedtime. 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 30 Tablet 5 04/15/19 25 Active documented as of this encounter (statuses as of 04/11/2024) Active Problems Patient Care Coordination No te Formatting of this note migh t be different from the original. : 03/06/2024 Patient reacted to Other Ontruzant [id number] After receiving emergency meds, patient symptoms resolved and completed remaining dose at full rate(titrated rates per Bonita GRANADO) see RN note/APR. Problem Noted Date Diagnosed Date Metastasis to brain 04/11/2024 Encounter for antineoplastic chemotherapy 2024 Chemotherapy-induced neutropenia 04/11/2024 Prevention of chemotherapy-induced neutropenia 0 04/11/2024 CINV (chemotherapy-induced nausea and vomiting) 03/15/2024 Metastasis from HER2 positive carcinoma of breas t 02/21/2024 Neoplastic (malignant) related fatigue Neoplasm related pain 02/08/2024 Encounter for antineoplastic immunotherapy 02/07 Stage IV breast cancer in female 02/05/2024 Cerebellar mass 02/05/2024 Brain compression 02/05/2024 Cerebral edema 02/05/2024 Non compliance w medication regimen 01/24/2024 Goals of care, counseling/discussion 01/24/2024 Brain mass 01/23/2024 Cancer of left breast metastatic to brain 2023 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 Never true 04/11/19 25 Within the past 12 months, t he food you bought just didn't last and you didn't have money to get more. Never true 04/11/2024 Childcare Answer Date Recorded Do you feel overwhelmed with taking care of a child, family member or friend? No 04/11/2024 Does your family need help f inding childcare? (Household - for ages 0-17 years) Not on file 04/11/2024 Clothing Answer Date Recorded Have you been unable to get clothing when it was really needed? No 04/11/2024 Is your family able to get c lothes or diapers when needed? (Household - for ages 0-17 years) Not on file 04/11/2024 Personal Safety Answer Date Recorded Do you feel unsafe or have concerns for your saf ety? No 04/11/2024 Do you have concerns for you r family's safety? (Household - for ages 0-17 years) Not on file 04/11/2024 Utilities Answer Date Recorded Do you have trouble paying y our heating, water, or electric bill? No 04/11/2024 Is your family able to pay t he heat, water, or electric bill? (Household - for ages 0-17 years) Not on file 04/11/2024 Does your family have access to good internet? (Household - for ages 0-17 years) Not on file 04/11/2024 Employment Status Answer Date Recorded Are you unemployed or without regular income? No 04/11/2024 Does the household have a [facility] source of income? (Household - for ages 0-17 years) Not on file 04/11/2024 Social Connections Answer Date Recorded How often do you feel lonely or isolated from th ose around you? Rarely 04/11/2024 Financial Resource Strain Answer Date R ecorded Do you have any trouble payi ng for your medications, or do you think you might in the future? No 04/11/2024 Does your family have troubl e paying for medicine? (Household - for ages 0-17 years) Not on file 04/11/2024 Transportation Needs Answer Date Record ed Do you have trouble getting a ride to medical visits or work? (Adult - for ages 18 years and over) Not on file 04/11/2024 Does your family have a hard time getting a ride to doctors visits? (Household - for ages 0-17 years) Not on file 04/11/2024 Has lack of transportation k ept you from medical appointments, meetings, work, or from getting things needed for daily living? Check all that apply. No 04/11/2024 Do you (or your family) have trouble finding or paying for a ride (transportation)? (Household - for ages 0-17 years) Not on file 04/11/2024 Housing Stability Answer Date Recorded Do you currently live in a s helter or have no steady place to sleep at night? No 04/11/2024 Do you think you are at risk of becoming homeless? (Adult - for ages 18 years and over) Not on file 04/11/2024 Does your family worry about paying for your home or becoming homeless? (Household - for ages 0-17 years) Not on file 0 04/11/2024 Are you homeless or worried that you might be in the future? No 04/11/2024 Are you (or your family) yrn eless or worried that you might be in the future? (Household - for ages 0-17 years) Not on file Food Insecurity Answer Date Recorded Do you need food for this week? No 01/23/2024 Are you able to get enough f ood for your family? (Household - for ages 0-17 years) Not on file 01/23/2024 Does your family need food t his week? (Household - for ages 0-17 years) Not on file 01/23/2024 Do you always have enough fo od for your family? (Household - for ages 0-17 years) Not on file 01/23/2024 Food Insecurity Answer Date Recorded Within the past 12 months, y ou worried that your food would run out before you got the money to buy more. Never true 04/11/19 25 Within the past 12 months, t he food you bought just didn't last and you didn't have money to get more. Never true 04/11/2024 Do you need food for this week? No 04/11/2024 Comments No Sex and Gender Information Value Date Recorded Sex Assigned at Not on file Legal Sex Female 9:43 AM EDT Gender Identity Not on file Sexual Orientation Not on file documented as of this encounter Functional Status * Are you deaf or do you have serious difficulty hearing? Answer Date of Assessment Author No 02/05/2024 12:29 AM Shakira Aden RN * Are you blind or do you have serious difficulty seeing, even when wearing glasses? Answer Date of Assessment Author No 02/05/2024 12:29 AM Shakira Aden RN * Do you have serious difficulty walking or climbing stairs? (5 years old or older) Answer Date of Assessment Author No 02/05/2024 12:29 AM Shakira Aden RN * Do you have difficulty dressing or bathing? (5 years old or older) Answer Date of Assessment Author No 02/05/2024 12:29 AM Shakira Aden RN * Because of a physical, mental, or emotional condition, do you have difficulty doing errands alone such as visiting a doctors office or shopping? (15 years old or older) Answer Date of Assessment Author Yes 02/05/2024 12:29 AM Shakira Aden RN documented as of this encounter Mental Status * Because of a physical, mental, or emotional condition, do you have serious difficulty concentrating, remembering, or making decisions? (5 years old or older) Answer Entry Date Author No 02/05/2024 12:29 AM Shakira Aden RN documented in this encounter Plan of Treatment Upcoming Encounters Date Type Department Care Team (Late st Contact Info) Description 04/12/2024 11:45 AM EST Pharmacy Pharmacy Hematology Oncology [address] [address] [facility] [facility] [place] [address] 04/24/2024 10:00 AM EDT Telemedicine Psychology [address] [address] Berry Goldberg PsyD [facility] [place] [address] 04/25/2024 8:15 AM EDT Nurse Only Hematology Oncology [facility], [address] [phone] [place], Nurse Lab Hem/Onc [address] [place] [phone] 04/25/2024 9:00 AM EDT Office Visit Hematology Oncology [facility], [address] [phone] Arturo Lizarraga CR[place] [facility] [place] [address] 04/25/2024 10:00 AM EDT Hem/Onc Treatment Hematology Oncology [facility], [address] [phone] [place], Chair 15 Hem/Onc [address] [place] [phone] 04/26/2024 2:30 PM EDT Office Visit Palliative Medicine [facility], [address] [address] Vicente Henry MD [facility] [address] [place], [place] [phone] Pending Results Name Type Priority Associated Diagnoses Date /Time CA 27.29 Lab STAT 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) 04/11/2024 10:45 AM EST Health Maintenance Due Date Last Done Comments COVID-19 Vaccine (#1) 10/14/1988 Depression Screening 1995 Influenza Vaccine (FLU shot) (#1) 2023 Meningitis B Vaccine (Bexsero/Trumemba) Aged Out No longer eligible b ased on patient's age to complete this topic documented as of this encounter Medical Devices Implanted Type Area Cloud Solutions Architect Device Identifier Shelf Expiration Date Model / Serial / Lot Valve Program Certal Pls - [id number] Implanted:Qty: 1 on 02/13/2024 by Oswaldo Rehman MD at [facility] Right: Head [employer] [id number] 10/13/2028 [id number] / / [id number] Cath Vent Bactiseal [id number] - [id number] Implanted:Qty: 1 on 02/13/2024 by Oswaldo Rehman MD at [facility] Right: Head [employer] [id number] 11/12/2024 [id number] / / [id number] Valve Program Certal Pls - [id number] Implanted:Qty: 1 on 02/13/2024 by Oswlado Rehman MD at [facility] [place] [facility] Right: Head [employer] [id number] 10/13/2028 [id number] / / [id number] Marker Site Biopsy - [id number] Implanted:Qty: 1 on 03/19/2024 at [facility] [employer] TRIMARK EVIVA 2S-[id number] / / documented as of this encounter Procedures Procedure Name Priority Date/Time Associated Diagnosis Comments DIFFERENTIAL, AUTOMATED STAT 04/11/2024 10:45 AM EST 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) COMPREHENSIVE METABOLIC PANEL STAT 04/11/2024 10:45 AM EST 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) CBC STAT 04/11/2024 10:45 AM EST 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) PHOSPHORUS STAT 04/11/2024 10:45 AM EST 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) CBC STAT 04/11/2024 10:45 AM EST 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) documented in this encounter Results * DIFFERENTIAL, AUTOMATED (04/11/2024 10:45 AM EST) WBC 4.40 4.00 - 10.80 K/uL 04/11/2024 10:51 AM EST [facility] Neutrophils % 54.7 40.0 - 75.0 % 04/11/2024 10:51 AM EST [facility] Lymphocytes % 33.4 18.0 - 42.0 % 04/11/2024 10:51 AM EST [facility] Monocytes % 8.9 1.0 - 11.0 % 04/11/2024 10:51 AM EST [facility] Eosinophils % 2.5 0.0 - 6.0 % 04/11/2024 10:51 AM EST [facility] Basophils % 0.5 0.0 - 2.0 % 04/11/2024 10:51 AM EST [facility] Immature Granulocytes % 0.0 0.0 - 2.0 % 04/11/2024 10:51 AM EST [facility] Absolute Neutrophils 2.41 1.80 - 7.70 K/uL 04/11/2024 10:51 AM EST [facility] Absolute Lymphocytes 1.47 1.00 - 4.80 K/ul 04/11/2024 10:51 AM EST [facility] Absolute Monocytes 0.39 0.00 - 1.10 K/uL 04/11/2024 10:51 AM EST [facility] Absolute Eosinophils 0.11 0.00 - 0.70 K/uL 04/11/2024 10:51 AM EST [facility] Absolute Basophils 0.02 0.00 - 0.20 K/uL 04/11/2024 10:51 AM EST [facility] Absolute Immature Granulocytes 0.00 0.00 - 0.20 K/uL 04/11/2024 10:51 AM EST [facility] Blood Blood sample taken from central line / Unknown Central Line / Unknown 04/11/2024 10:45 AM EST 04/11/2024 10:49 AM EST us Huang Joe MD LAB BLOOD ORDERABLE S Final Result [facility] [address] [place] [address] * (ABNORMAL) CBC (04/11/2024 10:45 AM EST) WBC 4.40 4.00 - 10.80 K/uL 04/11/2024 10:51 AM EST [facility] RBC 3.96 3.85 - 5.15 M/uL 04/11/2024 10:51 AM EST [facility] HGB 11.9(L) 12.0 - 15.3 g/dL 04/11/2024 10:51 AM EST [facility] HCT 35.7(L) 36.0 - 45.2 % 04/11/2024 10:51 AM EST [facility] MCV 90.2 81.5 - 97.5 fL 04/11/2024 10:51 AM EST [facility] MCH 30.1 27.0 - 34.0 pg 04/11/2024 10:51 AM EST [facility] MCHC 33.3 32.0 - 36.0 g/dL 04/11/2024 10:51 AM EST [facility] RDW 14.2 11.5 - 15.5 % 04/11/2024 10:51 AM EST [facility] PLT 263 140 - 400 K/uL 04/11/2024 10:51 AM EST [facility] MPV 9.0 6.6 - 11.1 fL 04/11/2024 10:51 AM EST [facility] nRBCs 0 <=0 /100 WBCs 04/11/2024 10:51 AM EST [facility] Blood Blood sample taken from central line / Unknown Central Line / Unknown 04/11/2024 10:45 AM EST 04/11/2024 10:49 AM EST us Huang Joe MD LAB BLOOD ORDERABLE S Final Result [facility] [address] [place] [address] * PHOSPHORUS (04/11/2024 10:45 AM EST) Pathologist [facility] Phosphorus 3.9 2.5 - 4.8 mg/dL 04/11/2024 11:42 AM EST [facility] Blood Blood sample taken from central line / Unknown Central Line / Unknown 04/11/2024 10:45 AM EST 04/11/2024 11:12 AM EST us Huang Joe MD LAB BLOOD ORDERABLE S Final Result [facility] [address] [place] [address] * (ABNORMAL) COMPREHENSIVE METABOLIC PANEL (04/11/2024 10:45 AM EST) BUN 15 6 - 20 mg/dL 04/11/2024 11:42 AM EST [facility] CREATININE 0.5 0.5 - 1.0 mg/dL 04/11/2024 11:42 AM EST [facility] EGFR >90 >=60 mL/min 04/11/2024 11:42 AM EST [facility] Comment:eGFR is calculated b ased on the CKD-EPI 2020 equation. SODIUM 140 135 - 146 mmol/L 04/11/2024 11:42 AM EST [facility] POTASSIUM 4.2 3.5 - 5.1 mmol/L 04/11/2024 11:42 AM EST [facility] CHLORIDE 103 98 - 107 mmol/L 04/11/2024 11:42 AM EST [facility] CO2 25 22 - 32 mmol/L 04/11/2024 11:42 AM EST [facility] ANION GAP 12 7 - 15 mmol/L 04/11/2024 11:42 AM EST [facility] GLUCOSE 110 70 - 120 mg/dL 04/11/2024 11:42 AM EST [facility] Albumin 4.3 3.8 - 5.0 g/dL 04/11/2024 11:42 AM EST [facility] AST 26 10 - 35 U/L 04/11/2024 11:42 AM EST [facility] Alkaline Phosphatase 55 35 - 130 U/L 04/11/2024 11:42 AM EST [facility] Bilirubin, Total 0.2 <=1.2 mg/dL 04/11/2024 11:42 AM EST [facility] CALCIUM 9.1 8.4 - 10.2 mg/dL 04/11/2024 11:42 AM EST [facility] Protein 6.8 6.0 - 8.3 g/dL 04/11/2024 11:42 AM EST [facility] ALT 41(H) 10 - 35 U/L 04/11/2024 11:42 AM EST [facility] Blood Blood sample taken from central line / Unknown Central Line / Unknown 04/11/2024 10:45 AM EST 04/11/2024 11:12 AM EST us Huang Joe MD LAB BLOOD ORDERABLE S Final Result [facility] [address] [place] [address] documented in this encounter Visit Diagnoses Diagnosis 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 Question Answer Comments Discussion of Advance Directives occurred with: Patient * Full Code Date Activated Date Inactivated Comments 01/23/2024 4:54 AM 01/25/2024 12:02 AM This orde r reflects the patients wishes and were consensually agreed upon. Question Answer Comments Discussion of Advance Directives occurred with: Patient Care Teams Building Drafting Officer Relationship Specialty Start Date End Date Gwendolyn Han MD [address] [place] [address] PCP - General Hematology/Oncology 03/29/24 documented as of this encounter
--- OUTSIDE RECORDS SUMMARY | 2024-04-16 15:04 | External Medical Summary | Summary of Care ---
Author Name Unknown Organization [facility] Address [address] [place] [address] Phone [phone] Care Team Providers Care Professional Development Director Name Role Phone Gwendolyn Han MD Primary Care Provider [phone] Reason for Visit * Reason Comments Medication Management Encounter Details Date Type Department Care Team (Late st Contact Info) Description 04/12/2024 11:45 AM [facility] Pharmacy Pharmacy Hematology Oncology [facility] [address] [place] [address] [facility] [place] Hem/Onc [address], [place] [phone] 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 Please do not use heparin for port flush. documented as of this encounter (statuses as of 04/15/2024) Medications Glucosamine-Chondr oitin Max St Oral Capsule Take 1 Capsule by mouth daily at noon. 01/18/20 24 Active Calcium Citrate-Vitamin D 500-10 MG-MCG Oral Tablet Chewable Take 1 Tablet by mouth in the morning and 1 Tablet in the evening. 01/18/20 24 Active levETIRAcetam 500 MG Oral Tablet (Keppra) Take 1 Tablet by mouth in the morning and 1 Tablet before bedtime. 120 Tablet 3 01/24/20 24 Active Famotidine 20 MG Oral Tablet (Pepcid) Take 1 Tablet by mouth in the morning and 1 Tablet before bedtime. 60 Tablet 11 01/24/20 24 Active Ondansetron 8 MG Oral Tablet Disintegrating (Zofran) Place 1 Tablet on tongue to dissolve every 8 hours as needed for Nausea. 30 Tablet 5 12:10 PM EST 02/20/19 25 Active Prochlorperazine Maleate 5 MG Oral Tablet (Compazine) Take 1 Tablet by mouth every 6 hours as needed for Nausea (IF ZOFRAN DOES NOT HELP). 30 Tablet 5 12:10 PM EST 02/20/19 25 Active Acetaminophen 325 MG Oral Tablet (Tylenol)Indicatio ns:Brain compression (HCC) Take 1 Tablet by mouth every 4 hours as needed for Pain, Breakthroug h. Maximum of 3000mg per 24 hours. 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 30 Tablet 5 03/06/19 25 Active dexAMETHasone 4 MG Oral Tablet (Decadron)Indicati ons:Metastasis to brain (HCC) Take 1 Tablet by mouth in the morning and 1 Tablet before bedtime. 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 With or without food. 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 For 14 days followed by 7-day rest period. Take within 30 minutes of meal. Do not crush or cut.. 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 For 14 days followed by 7-day rest period. Take within 30 minutes of meal. Do not crush or cut.. 84 Tablet 5 5 11:59 AM EST 03/04/19 25 025 Discontinued documented as of this encounter (statuses as of 04/15/2024) Active Problems Patient Care Coordination No te Formatting of this note migh t be different from the original. 246: 03/06/2024 Patient reacted to Other Ontruzant [id number] After receiving emergency meds, patient symptoms resolved and completed remaining dose at full rate(titrated rates per Bonita GRANADO) see RN note/MAR. Problem Noted Date Diagnosed Date Metastasis to [...] as of this encounter (statuses as of 04/15/2024) Resolved Problems Problem Noted Date Diagnosed Date Resolved Date Obstructive hydrocephalus 02/04/2024 documented as of this encounter (statuses as of 04/15/2024) Social History Tobacco Use Types Packs/Day Years [...] No 04/11/2024 Does the household have a [facility] source of income? (Household - for ages [...] No 04/11/2024 Are you (or your family) ynr eless or worried that you might be [...] Shakira Aden RN documented in this encounter Progress Notes * Diana Aguillon, [facility] - 04/15/2024 12:00 PM EST MEDICATION THERAPY MANAGEMENT CAPECITABINE + TUCATINIB TREATMENT PROGRESS NOTE Padmaja Burris [phone] Patient Phone Numbers Preferred Lab: Specialty Pharmacy: Communication: Chart review Treatment: Medication: Capecitabine (Xeloda) Indication/Staging/Diagnosis Code: Breast w/ mets, HER2+ C79.9, C50.919, Z17.31 Dose Basis: 1000 mg/m2 Dose: 1500 mg Administration: within 30 minutes of a meal Medication: Tucatinib (Tukysa) Dose: 300 mg PO BID Administration: +/- food Start Date: TBD Primary Veterinary Medical Officer/Oncologist: Dr. Joe Additional Therapy: Leuprolide Trastuzumab Denosumab Supportive Care Meds: Ondansetron Prochlorperazine Cycle Dates C1 Need to confirm C2 TBD Treatment History: XRT, THP, Phesgo, Tamoxifen, Xgeva Treatment Dose Adjustment/Hold History: N/a Interval History: N/a Changes to medication list since last visit? No Drug interaction assessment: Treatment plan and current medication list evaluated for drug-drug interactions. No clinically significant drug interaction identified Assessment and Plan: Per 03/15 OV - patient voiced concern regarding pill burden with capecitabine and tucatinib. Dose reduced tucatinib to 1500 mg to ease pill burden. Of note, a change in dosing on tucatinib would result in higher pill burden Advised by provider that patient took two days worth of medication and then discontinued due to nausea 03/20/24 - Left voicemail requesting return call to clinic to review if medication started and to review toleration to therapy Per 03/27 OV, "She also states that she has had a "reaction" to her oral chemotherapy pills. Stopped tucatinib and capecitabine on about 20 days ago.: Per notes, patient opting to withhold treatment until discussed with Dr. Joe Per 04/11 OV, She stopped Xeloda, tucatinib after she took it only for 2 days because of GI side effects with nausea, vomiting. She refused to resume her medications as instructed by my team during my time off. Pt consented to start Enhertu after checking with physician in her home [facility] MTM to discharge patient at this time. Assessment of compliance: N/a Assessment of adverse effects attributed to drug therapy: N/a Dose adjustment needed based on lab or adverse drug reaction? N/a Follow up: Discharge Diana Aguillon, GonzálezD, BCOP Clinical Pharmacist [facility] 04/15/2024, 12:05 PM Monitoring Parameters: Estimated CrCl Serum creatinine: 0.5 mg/dL 04/11/24 1045 Estimated creatinine clearance: 140 mL/min Hepatitis panel Complete 03/06/24 Not immune to hepatitis B virus test Will require monthly screening Suggested lab monitoring Suggested lab monitoring: CBC with differential (baseline and prior to each cycle); CMP (baseline, and prior to each cycle); INR (if receiving VKA); test (in females of reproductive potential prior to initiating therapy); EKG (if on concomitant QT-prolonging medications) Treatment parameters: baseline platelets should be > 100K and ANC > 1500 Monitor ALT, AST, and bilirubin (prior to tucatinib initiation, every 3 weeks during treatment, andas clinically indicated); kidney function (prior to treatment initiation) and as clinically necessary. Evaluate status prior to treatment initiation (in patients who could become ). Treatment Parameters See PI Time Spent on Encounter: 6 - 10 minutes Encounter Group: Oncology Encounter Interventions Item Category: Oral Chemotherapy Capecitabine Problem/Rationale: Safety: Needs additional monitoring - Medication Requires monitoring Pharmacist Intervention(s): Medication discontinued Magnitude of Intervention: Modification of medication for asymtomatic patients (Level 2) Second Item Second Item Category: Oral Chemotherapy Tucatinib Problem/Rationale: Safety: Needs additional monitoring - Medication Requires monitoring Pharmacist Intervention(s): Medication discontinued Magnitude of Intervention: Modification of medication for asymtomatic patients (Level 2) documented in this encounter Plan of Treatment Upcoming Encounters Date Type Department Care Team (Late st Contact Info) Description 04/24/2024 10:00 AM EDT Telemedicine Psychology [address] [phone] Berry Goldberg PsyD [address] [place] [address] [phone] 04/25/2024 8:15 AM EDT Nurse Only Hematology Oncology [address] [phone] [place], Nurse Lab Hem/Onc [address] [place] [phone] 04/25/2024 9:00 AM EDT Office Visit Hematology Oncology [address] [phone] Arturo Lizarraga CRNP [address] [place] [address] [phone] 04/25/2024 10:00 AM EDT Hem/Onc Treatment Hematology Oncology [facility], [place] [address] [place] [address] [place], [address] 15 Hem/Onc [address] [place] [address] 04/26/2024 2:30 PM EDT Office Visit Palliative Medicine [facility], [place] [address], [place] [phone] Vicente Henry MD [address], [place] [phone] Health Maintenance Due Date Last Done Comments COVID-19 Vaccine (#1) 10/14/1988 Depression Screening 1995 Influenza Vaccine (FLU shot) (#1) 2023 Meningitis B Vaccine (Bexsero/Trumemba) Aged Out No longer eligible b ased on patient's age to complete this topic documented as of this encounter Medical Devices Implanted Type Area Shuttleless Loom Weaver Device Identifier Shelf Expiration Date Model / Serial / Lot Valve Program Certal Pls - [id number] Implanted:Qty: 1 on 02/13/2024 [place]aldo Rehman [place] [facility] [place] Head [employer] [id number] 10/13/2028 [id number] / / [id number] Cath Vent Bactiseal [id number] - [id number] Implanted:Qty: 1 on 02/13/2024 by Oswaldo Rehman MD at [facility] Right: Head [employer] [id number] 11/12/2024 [id number] / / [id number] Valve Program Certal Pls - [id number] Implanted:Qty: 1 on 02/13/2024 by Oswaldo Rehman MD at 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
--- OUTSIDE RECORDS SUMMARY | 2024-04-16 15:04 | External Medical Summary | Summary of Care ---
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 28 Tablet 5 03/05/2024 11:59 AM EST 5 Active Capecitabine [...] AM EST 5 Active Cholecalciferol 50 MCG (1999) Oral TabletIndications:M etastasis from HER2 positive carcinoma [...] No 04/11/2024 Does the household have a re gular source of income? (Household - for ages [...] on file documented as of this encounter Last Filed Vital Signs Vital Sign Reading Time Taken Comments Blood Pressure 102/76 04/11/2024 9:22 AM EST Pulse 87 04/11/2024 9:22 AM EST Temperature 36.2 C (97.2 F) 04/11/2024 9:22 AM ES T Respiratory Rate 16 04/11/2024 9:22 AM EST Oxygen Saturation 98% 04/11/2024 9:22 AM EST RA Inhaled Oxygen Concentration - - Weight 60.9 kg (134 lb 3.2 oz) 04/11/2024 9:22 A M EST Height 167.6 cm (5' 5.98") 04/11/2024 9:22 AM ES T Body Mass Index 21.67 04/11/2024 9:22 AM EST documented in this encounter Functional Status * Are you deaf or do you have serious difficulty hearing? Answer Date of Assessment Author No 02/05/2024 12:29 AM Shakira Aden, ANDRÉS * Are you blind or do you [...] Assessment Author No 02/05/2024 12:29 AM Shakira Aden, ANDRÉS * Because of a physical, mental, or [...] documented in this encounter Progress Notes * Huang Joe MD - 04/11/2024 9:34 AM EST Images from the original note were not included. Patient's Name: Padmaja Burris MR #: [id number] : 1985 Today's date: 04/11/2024 PCP: Gwendolyn Han MD Referring provider: Huang Joe MD Reason for referral: * No diagnoses found * Hematology/Oncology diagnosis: De Sanjeev metastatic triple positive breast cancer, ER strongly + 90%, GA + 10- 20%, and HER2 3+, with multiple widespread bone metastases, and recently brain metastasis s/p SITE AUDITOR Shunt. (Mar 2021) Molecular testing (somatic) : via [facility] which revealed Her2/codi positive, ER/GA positive PIK3CA mutation Genetic testing: Negative Other comorbidities: Nonsignificant Treatment rendered: Palliative XRT, 1 fraction (800cGy) to the lumbar spine and sacrum (04/13/2021). Palliative Syetmeic Tx with THP [docetaxel, trastuzumab, and pertuzumab] x 6 cycles (04/21/21 - 08/04/2021) Maintenance Phesgo (Trastuzumab/pertuzumab SQ) (08/26/2021- )---> Pt requested to stop because she desired .---> Resumed again (02/01/2023- Nov 2023)--> Stopped again for plans. Tamoxifen (May,- Nov 2023) SITE AUDITOR (Ventricular Peritoneal) Shunt d/t hydrocephalus (02/13/24) Xgeva--->Q 1 months, then Q 3 months (April 2021- Nov 2023) Herceptin + tucatinib + Xeloda (Cycle is 21 Ds):Herceptin 8 mg/kg followed by 6 mg/kg D1, Dhcuxrjon321 mg Po BID on D1 -21 , Xeloda 1000 mg/m2 Po BID on D1-14 ---> Stopped after 2 days d/t poor tolerance, and she refused dose reduction. 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 Right Breast Biopsy Pathology 09/01/22: BREAST, RIGHT, 1 O'CLOCK, CORE BIOPSY ([id number]; 03/29/2021; 11 Slides): Invasive mammary carcinoma with ductal and lobular features, grade 3. Biomarkers: ER: Positive, 90%, 2+, GA: Positive, 10- 20%, 1-2+, HER2 (IHC): Positive, 3+, HER2 (FISH): Positive; HER2:CEN17 = 3.0, average HER2 copy number >/=4.0 (per report), KI-67: 50-60% 09/14/2023 Imaging Mammogram: 09/14/2023 Biopsy MICROSLIDE CONSULTATION: [id number] Order: [id number] Status: Final result Visible to patient: Yes (seen) Next appt: 04/12/2024 at 11:45 AM in Pharmacy ([facility]) Dx: Cancer of left breast metastatic to b... 0 Result Notes Component Final Diagnosis A. Breast, right, status post-chemotherapy, new grouped calcifications at biopsy site 12 -1:00, stereotactic biopsy ([facility] / [id number] collected 09/14/2023/ 14 stained slides / no blocks): Ductal carcinoma in situ, high grade, with comedonecrosis and calcifications Moderate diffuse estrogen receptor protein expression Weak multifocal progesterone receptor protein expression B. Breast, right, 1:00, core biopsy ([facility] / [id number] collected 03/29/2021/ stained slides / no blocks): Invasive breast carcinoma, no special type (NST), grade 3 Moderate diffuse estrogen receptor protein expression Weak multifocal progesterone receptor protein expression Strong diffuse HER2 oncoprotein expression (3+) HER2 FISH assay reported as amplified 10/04/2023 Imaging PET-CT 01/23/[address] C/A/P : 1. Widespread osseous metastases. 2. C6 vertebra plana deformity partially visualized, age indeterminate. 3. T8 compression fracture deformity with 70 percent height loss. Age indeterminate. 4. L4 compression fracture deformity with mild bony retropulsion. Age indeterminate. 5. Mild T11 compression fracture deformity, age indeterminate 02/06/2024 Imaging BRAIN MRI: 1. Relatively stable intracranial metastatic disease as described above compared to outside MRI from 01/22/2024. The largest dural-based metastasis in the left lateral aspect of the posterior cranialfossa measures up to 4.9 cm and in conjunction with surrounding vasogenic edema is producing significant mass effect resulting in mild superior vermian and inferior cerebellar tonsillar herniation, as well as slight obstructive supratentorial ventriculomegaly. 2. Stable nonenhancing metastatic disease in the cervical and upper thoracic spine as described above. Chronic pathological compression fracture (vertebral plana) of C6 and destructive changes in theC6 articular facets, which is causing perched right C5 and C7 facets. 3. Mild degenerative changes in cervical spine without spinal canal stenosis or significant neural foraminal narrowing. 02/13/2024 Biopsy A. CSF, Cytology: Adequacy: Satisfactory for evaluation. Category: Benign. Interpretation: Benign lymphocytes and monocytes. 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) 02/26/2024 - 02/26/2024 Supportive Therapy SCP - OP Leuprolide 11.25 mg every 3 months (Breast Cancer/Ovarian Suppression) [id number] Plan Provider: Huang Joe MD Treatment goal: Supportive Line of treatment: [No plan line of treatment] 03/04/2024 - Chemotherapy TUCATINIB-CAPECITABINE (BREAST) [id number] 03/15/2024 - Supportive Therapy SCP - XGEVA [id number] Plan Provider: Huang Joe MD Treatment goal: Supportive Line of treatment: [No plan line of treatment] 03/18/2024 - Supportive Therapy SCP - HYDRATION [id number] Plan Provider: Alicia Murillo MD Treatment goal: Supportive Line of treatment: [No plan line of treatment] 03/19/2024 Biopsy A. 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 -- See comment. Comment: Histologically this lesion has some features of lobular carcinoma, but the immunophenotypeis definitively ductal. Prognostic markers will be reported separately. Estrogen Receptor (ER) protein expression is STRONGLY POSITIVE 100% nuclear positivity 3+ average intensity score (range 0 to 3+) Progesterone Receptor (GA) protein expression is MODERATELY POSITIVE 40% nuclear positivity 2+ average intensity score (range 0 to 3+) HER2 oncoprotein expression is POSITIVE ( 3+ average membranous intensity) 03/27/2024 - Chemotherapy trastuzumab-xxxx 8 mg/kg followed by 6 mg/kg (6 Cycles/3 weeks) [id number] ECOG: Performance Status 0 = 100% Normal Activity Interval history: Patient presented to my office today, accompanied by her for follow-up of her metastatic her 2 positive breast cancer, discuss treatment plan. Patient reported that she only took 2 days of Xeloda, tucatinib, then stopped because of side effects mainly nausea and vomiting. She has been off treatment, and now her GI symptoms are better. She had MRI brain done earlier today, and her shunt was evaluated earlier today as well. She is here today to discuss treatment plan. She still refuses brain surgery, or radiation to her brain. History of present illness (at time of my initial evaluation on 02/21/2024 ): Padmaja Burris is a 38 year old female , presented to my office today accompanied by her , tarik jimenez with new medical oncologist after her most recent hospitalization. Patient lives in the [place]. She has been for about 5 years. She has no kids. She was in 2021 when she was diagnosed with breast cancer, and was terminated on week 7. 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 Her is an aviation engineer. Patient has been evaluated in multiple institutes, and with multiple different medical oncologists.She was evaluated at [facility], [facility] (Dr. Perez.), [facility] (Guille), [facility]. She has had consultation with Maternal- Medicine at [facility], Dr. Manuela Mai. She reported that her primary oncologist was mainly Dr. Gwendolyn Hna at [facility]. The other institutes were mainly for 2nd opinions. LMP 02/10/24 I do not have all her old records, we are in the process of getting her records from different facilities, for now those are the information I was able to obtain. Diagnosis/Treatment history from outside records: 1. She had presented to her PCP on 03/22/2021 with chest pain, right breast tenderness and positive test. She was 7 weeks when the breast cancer diagnosis was confirmed. was terminated to start breast cancer treatment. 2. CT Chest Angiogram to evaluate for PE obtained on 03/24/2021 revealed no PE but incidentally notedmultiple lytic foci in the spine. On second review by radiology, right breast mass was also noted. 3. On 03/29/2021, bilateral diagnostic mammogram with right breast ultrasound revealed suspicious irregular 20 mm hypoechoic solid mass in the 1:00 posterior breast, correlating with a mammographic mass with associated distortion and calcification, diffuse right breast skin thickening, concerning for inflammatory breast cancer abnormal appearing right axillary lymph node. 4. Right breast core biopsy on 03/29/21 revealed grade 3 invasive ductal carcinoma, ER Positive, GA Positive and HER2/codi Positive by IHC with Ki-67 of 60% . 5. Right axillary LN biopsy on 04/02/21 was positive for metastatic disease. 6. She was evaluated by Dr. Aneta Perez of breast oncology at [facility] on 04/08/21 who discussed treatment options in the setting of . 7. Seen at [facility] on 04/09/2021. Discussed treatment options at that time. Patient declined termination. Complained of severe upper and lower back pain. 8. Admitted to [facility] on 04/06/2021 with intractable lower back pain. Decided to go ahead with termination. 9. CT CAP on 04/09/2021 revealed diffuse osteolytic metastatic disease, right breast dermal thickening and 11 mm indeterminant hypodensity in the posterior right lobe of the liver likely representing hemangioma but is incompletely characterized. 10. D&E performed while inpatient on 04/13/2021. Received 1 fraction (800cGy) of palliative radiation to the lumbar spine and sacrum on 04/13/2021. 11. MRI lumbar spine on 04/14/2021 revealed extensive osseous metastatic disease throughout the visualized lumbosacral spine and bony pelvis as well as mild acute to subacute pathologic compression fracture of L4 12. MRI thoracic spine on 04/14/2021 revealed extensive metastatic disease within the thoracic spine with T8 pathologic fracture with 40% loss of vertebral body height 13. MRI cervical spine on 04/14/2021 revealed enhancing metastatic disease involving the C3, C4 and C6 vertebral bodies as well as pathologic compression fracture of C6 with retropulsion of bone fragments into the spinal canal 14. Pretreatment CA 15-3 of 1557; CA 27-29 of 2916. On 04/15/2021 she received cycle #1 of docetaxel while inpatient . On 04/21/21 She received Cycle 1 of trastuzumab/Pertuzumab and Xgeva 15. Bone biopsy on 04/20/2021 confirmed metastatic carcinoma consistent with breast primary. 16. Bone scan on 04/27/2021 revealed foci of radiotracer uptake within the left side of the calvarium, left orbital rim, ribs, spine and pelvis consistent with metastatic disease. MRI brain on 05/06/2021 was negative for brain metastatic disease 17. Mid-treatment PET/CT on 06/21/2021 revealed great response to treatment. 18. Completed 6 cycles of THP on 08/04/2021. Started maintenance Phesgo (Trastuzumab/pertuzumab SQ) on 08/26/2021 19. Restaging PET/CT on 09/08/2021 revealed great response to treatment with no FDG avid metastatic disease identified, minimal FDG uptake within the primary right breast lesion which had decreased insize and FDG uptake from prior scans as well as slight increase in sclerosis of skeletal lesions with no significant FDG uptake suggesting treated metastasis and no evidence of new skeletal lesions 20. She decided to discontinue systemic therapy in because she desired despitebeing advised against this. 21.Labs obtained on 11/11/2022 revealed increase in CA 27-29 to 48 and normal CA 15-3 of 23; on 12/05/2022 CA 27-29 was 57 and CA 15-3 of 25; on 01/11/2023 CA 27-29 was 92 and CA 15-3 was 44 22. PET/CT on 12/28/2022 revealed no evidence of hypermetabolic metastatic disease with redemonstration of multiple sclerotic lesions without abnormal FDG avid 23. After multiple discussions with patient and her regarding rising tumor markers and my concern for disease progression, she restarted phesgo and Xgeva on 02/01/2023. After multiple conversations, finally started tamoxifen in May, 24. Bilateral mammogram obtained on 08/25/2023 due to rising tumor markers and unremarkable PET/CT revealed decrease in size of previously biopsied mass, resolution of diffuse right breast skin thickening consistent with treatment response and new grouped pleomorphic calcifications seen in the biopsy sites in the right 12-1 o'clock breast measuring approximately 2.7 x 2.8 x 2.2 cm, morphologicallynormal axillary lymph node previously biopsied consistent with treatment response. She is being scheduled for stereotactic biopsy of new breast calcifications. 25. She underwent stereotactic biopsy of new breast calcifications on 09/14/2023 which showed high grade DCIS ER Positive (moderate staining-75%), GA Positive (weak staining-2%) H/O from [facility]: 03/29/21- Right breast biopsy. Reviewed as invasive ductal carcinoma, grade 3, ER + (98%, intermediate to strong intensity), GA + (10%, variable intensity), HER- 2/codi positive (3+), Ki-67 60%. The tumor was sent for HER-2 evaluation by FISH at [facility] and was amplified with HER-2: ROXI 7 ratio 3.0, average HER-2 signals per nucleus 12.5. 04/02/21- Right axillary lymph node biopsy. The pathology was positive for malignant cells consistent with metastatic carcinoma. 04/14/21- She was able to complete MRI of the cervical, thoracic, and lumbar spine with and without contrast. The findings were of extensive metastatic disease. The reports are scanned in epic. Of note, the cervical spine MRI shows enhancing metastatic disease involving C3, C4, and C6, and a pathologic compression fracture at C6 with retropulsion of bone fragments into the spinal canal. No evidenceof compression upon the spinal cord at this level. No enhancement within the spinal cord. The thoracic spine MRI revealed again extensive metastatic disease within the thoracic spine, and a T8 pathologic fracture with 40% loss of vertebral height. No retropulsion. No epidural extension of tumor. Atmost mild multilevel neuroforaminal narrowing. The thoracic cord signal and caliber was normal. TheLS spine MRI revealed extensive osseous metastatic disease within the lumbosacral spine and bony pelvis. Mild acute to subacute pathologic fracture of L4. No enhancing lesions identified in the central canal and no evidence of epidural extension of tumor. She was initiated on Cymbalta,, Lidoderm patch, and Flexeril. She was started on dexamethasone, which was tapered over 1 to 2 weeks. 04/15/21- Genetic testing, [employer] 29 genes- Negative. 04/15/21 CBC showed hemoglobin of 7.3, hematocrit 22.6. White cell count was 6.54, platelet 220 9K. Most recent CBC on 04/17/2021 showed a hemoglobin level of 10.0, hematocrit 30.9. LFTs on 04/20/2021 werenormal. Calcium level was 10.4, normalized with hydration. 04/15/21- She had a Mediport inserted during hospitalization. She received a dose of docetaxel on 04/15/2021 while inpatient, and Herceptin and Perjeta on 04/21/2021 after her discharge. She was on a tapering course of dexamethasone, ultimately stopped on 04/22/2021. 04/20/21- A sternal bone biopsy was done with preliminary report positive for metastatic breast cancer. 04/20/21- Sternal biopsy: positive for cancer, per verbal communication with Dr. Han. 06/21/21- PET scan: revealed decrease in size and increasing sclerosis and extensive multifocal osseous metastatic disease, compared with the 04/09/2021 study, lesion currently only mildly FDG avid. Dermal thickening and soft tissue nodule in the right breast have completely resolved. No abnormal FDG uptake identified in the right breast. The liver lesion previously seen on contrast- enhanced CT scanis no longer visualized. Additional findings were left-sided nephrolithiasis. There is increasing collapse of T8 and L4 vertebral bodies as compared with previous. Mild pathologic compression deformity of T11, no from previous, likely acute to subacute. She had another PET scan 2 weeks ago, which reportedly is negative for activity. 08/04/21- Palliative chemotherapy :TH-P, x6 cycles. She is receiving monthly Xgeva. Dr. Han prescribed tamoxifen and only took it for less than 1 month (most likely 2 weeks) 08/04/21- Initiated Phesgo. 06/05- Discontinued Phesgo (systemic therapy) due to not wanting to be in medication for the rest of her life and pursuing despite being advised against this. Dr. Aneta Perez (From [facility]) did not typically recommend interrupting treatment for the sake of , as there is significant risk for flareup of her disease. In the context of metastatic disease, their team explained that may be unsafe, especially if she develops progressive disease during . Their team recommend avoiding while receiving trastuzumab and pertuzumab. She had a telemedicine visit with neurosurgeon at [facility]. Surgery was not recommended at this time. There was significant disease burden in her spine, with several compression fractures. She has a neurosurgery consultation appointment at [facility]. Dr. Chaney at [place] did not recommend kyphoplasty for hoplasty for the C6 compression fracture. Dr. Chaney recommended repeat MRI of the cervical spine with and without contrast, and CT scan at 7 weeks, for potential surgical discussion. 09/23/22- She arrived at the [facility] clinic today, expressing her concern about persistent fatigue that has affected her since last year, with no signs of improvement. Her determination to regainher energy levels is evident, despite her inclination to indulge in excessive sleep. She describes a discomfort characterized by tension and pain on the right side of her neck and shoulder. This condition has had a profound impact on her daily life, affecting her being unable to resume her work responsibilities. Denies taking pain medications. She shares that her oncologist advised halting her menstrual cycle to facilitate appropriate treatment. However, her menstrual cycle resumed post-treatment. The patient expressed a preference to sustain her menstrual cycles and, as a result, continues to experience monthly menstruation. " Patient was recently admitted to the hospital 2 times with the following hospital courses. HOSPITAL COURSE (focused)- 01/23/2024 - 01/24/2024 (27 hours) : "Patient presented [facility] ED for 10 days of headache, dizziness, and difficulty walking. While there CT head an MRA head revealed multiple metastatic lesions including 1 in the posterior fossa. She was then transferred to [facility] for q.1h neuro checks and surgical evaluation. She had a medically stable hospital stay significant for workup of oncological staging and surgicalcandidacy. She receive CT chest abdomen and pelvis which revealed multiple metastatic lesions to the cervical, thoracic, lumbar spine and sternum. MRI chest abdomen and pelvis was then performed further characterize these lesions they were found to be non impinging upon the spinal cord. List of consulting services included Neurosurgery, Radiation Oncology, Medical Oncology, Palliative Medicine, and psychology. Neurosurgery, Radiation Oncology, and Medical Oncology spoke with the patient and discussed various treatment options. After hearing all options the patient and her spouse elected to return home to way these options, risks, and benefits and decided upon the best course forward for them. Her hospital stay was complicated by her apparent lack of comprehension of her diagnosis and prognosis. On presentation she believe that her symptoms were related to any a another medical cause such as a UTI. Multiple teams tried to express and explain in various ways the gravity of her diagnosis and that any intervention at this time would be palliative, not curative. At the end of her hospitalization she seemed to have some better insight into her disease state but still seem to lack full comprehension that this is a terminal disease state." Hospital course 02/04/2024 - 02/21/2024 (17 days) : "She presented to the [facility] Emergency Department 02/04/2024 for evaluation. She reports that on 02/03/2024 she had increased headache, though this actually improved on 02/04/2024. She continues with vomiting, dizziness, and off/on inability to take oral medication. 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 She was treated with dexamethasone (10 mg IV, questionably then followed by 6 mg IV) and 75 mg mannitol. The outside facility suggested transfer to a higher level of care and she was sent to [facility] neurosurgical ICU. She has undergone shunt placement. She feels that she is not stable for transport and requests to hold on transfer to [facility] as initially planned. We had a lengthy discussion that the next steps for improvement require her to have further evaluation and management of her metastatic disease, which includes the possibility of debulking her posterior fossa metastasis. She related that she understandsthis, but does not want to be transferred as she personally feels she is not stable. 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) 01/23/2024 Past Surgical History: Procedure Laterality Date BREAST BIOPSY Right 03/2021 her 2 + BREAST BIOPSY Right 09/2023 [facility]cis CHEMOTHERAPY Right 2021 CREATE BRAIN CAVITY SHUNT Right 02/13/2024 CREATION SHUNT VENTRICULO PERITONEAL OR PLEURAL performed by Oswaldo Rehman MD at [facility] RADIATION THERAPY radiation to lower back 2021 STEREOTACTIC CRANIAL INTRADURAL NAVIGATION Right 02/13/2024 STEREOTACTIC CRANIAL INTRADURAL NAVIGATION performed by Oswaldo Rehman MD at [facility] Social History Tobacco Use Smoking status: Never Substance Use Topics Alcohol use: Never Drug use: Never Family History Problem Relation Name Age of Onset Cancer Uncle (Maternal) ? spleen cancer Breast Cancer No significant family history Current Outpatient Medications Medication Sig Dispense Refill levETIRAcetam 500 MG Oral Tablet (Keppra) Take 1 Tablet by mouth in the morning and 1 Tablet beforebedtime. 120 Tablet 3 Famotidine 20 MG Oral Tablet (Pepcid) Take 1 Tablet by mouth in the morning and 1 Tablet before bedtime. 60 Tablet 11 Ondansetron 8 MG Oral Tablet Disintegrating (Zofran) Place 1 Tablet on tongue to dissolve every 8 hours as needed for Nausea. 30 Tablet 0 Prochlorperazine Maleate 5 MG Oral Tablet (Compazine) Take 1 Tablet by mouth every 6 hours as needed for Nausea (IF ZOFRAN DOES NOT HELP). 30 Tablet 0 Acetaminophen 325 MG Oral Tablet (Tylenol) Take 1 Tablet by mouth every 4 hours as needed for Pain,Breakthrough. Maximum of 3000mg per 24 hours. 180 Tablet 0 Tucatinib 150 MG Oral Tablet Take 300 mg by mouth in the morning and 300 mg before bedtime. With orwithout food. 120 Tablet 5 Capecitabine 150 MG Oral Tablet (Xeloda) Take 1 Tablet by mouth in the morning and 1 Tablet before bedtime. For 14 days followed by 7-day rest period. Take within 30 minutes of meal. Do not crush or cut.. 28 Tablet 5 Capecitabine 500 MG Oral Tablet (Xeloda) Take 3 Tablets by mouth in the morning and 3 Tablets before bedtime. For 14 days followed by 7-day rest period. Take within 30 minutes of meal. Do not crush or cut.. 84 Tablet 5 Cholecalciferol 50 MCG (2000 UT) Oral Tablet Take 50 mcg by mouth in the morning. 30 Tablet 5 dexAMETHasone 4 MG Oral Tablet (Decadron) Take 1 Tablet by mouth in the morning and 1 Tablet beforebedtime. 30 Tablet 0 OLANZapine 5 MG Oral Tablet (zyPREXA) Take 1 Tablet by mouth at bedtime. 30 Tablet 0 Glucosamine-Chond[address] Max [address] Oral Capsule Take 1 Capsule by mouth daily at noon. (Patient not taking: Reported on 02/29/2024) Calcium Citrate-Vitamin D 500-10 MG-MCG Oral Tablet Chewable Take 1 Tablet by mouth in the morning and 1 Tablet in the evening. (Patient not taking: Reported on 04/11/2024) No current facility-administered medications for this visit. Review of patient's allergies indicates: Allergen Reactions Heparin Unknown Per patient - cannot have Heparin as it contains a pork product. Please do not use heparin for portflush. Physical exam: Vitals 03/28/2024 03/29/2024 10:05 04/03/2024 04/05/2024 04/08/2024 15:30 04/11/2024 Vitals BP 102/76 Pulse 87 Resp 16 Temp 36.2 C (97.2 F) SpO2 98 % RA Weight 134 lb 3.2 oz Height 1.676 m (5' 5.98") BMI 21.67 Notes Notes Telephone Encounter Signed Carla Hernandez OSA Telephone Encounter Signed Anya Batista OSA Progress Notes Signed Sarah Juarez BS Telephone Encounter Signed Vinny Leiva OSA Progress Notes Signed Sarah Juarez BS Progress Notes Signed Sarah Juarez BS Details More values are hidden. Newest values shown. Go to activity for more data. General: alert, healthy, and no distress Head: Normocephalic, No masses, lesions, tenderness or abnormalities Lymph: no palpable lymphadenopathy Heart: regular rate & rhythm, no murmur, and no gallops Lungs: chest symmetric with normal AP diameter, no chest deformities noted, no chest wall tenderness, lungs clear to auscultation Abdomen: abdomen soft, non-tender, normal bowel sounds, and no masses or organomegaly Extremities: no edema, no clubbing, no cyanosis Skin: skin color, texture, turgor are normal, no rashes or significant lesions Labs: Results for orders placed or performed in visit on 03/27/24 COMPREHENSIVE METABOLIC PANEL Result Value Ref Range BUN 14 6 - 20 mg/dL CREATININE 0.5 0.5 - 1.0 mg/dL EGFR >90 >=60 mL/min SODIUM 139 135 - 146 mmol/L POTASSIUM 4.0 3.5 - 5.1 mmol/L CHLORIDE 106 98 - 107 mmol/L CO2 25 22 - 32 mmol/L ANION GAP 8 7 - 15 mmol/L GLUCOSE 84 70 - 120 mg/dL Albumin 4.1 3.8 - 5.0 g/dL AST 22 10 - 35 U/L Alkaline Phosphatase 44 35 - 130 U/L Bilirubin, Total 0.2 <=1.2 mg/dL CALCIUM 8.8 8.4 - 10.2 mg/dL Protein 6.6 6.0 - 8.3 g/dL ALT 19 10 - 35 U/L CBC Result Value Ref Range WBC 4.10 4.00 - 10.80 K/uL RBC 3.79 3.85 - 5.15 M/uL HGB 11.2 (L) 12.0 - 15.3 g/dL HCT 33.9 (L) 36.0 - 45.2 % MCV 89.4 81.5 - 97.5 fL MCH 29.6 27.0 - 34.0 pg MCHC 33.0 32.0 - 36.0 g/dL RDW 13.8 11.5 - 15.5 % PLT 237 140 - 400 K/uL MPV 9.0 6.6 - 11.1 fL nRBCs 0 <=0 /100 WBCs DIFFERENTIAL, AUTOMATED Result Value Ref Range WBC 4.10 4.00 - 10.80 K/uL Neutrophils % 61.1 40.0 - 75.0 % Lymphocytes % 28.5 18.0 - 42.0 % Monocytes % 8.0 1.0 - 11.0 % Eosinophils % 1.7 0.0 - 6.0 % Basophils % 0.5 0.0 - 2.0 % Immature Granulocytes % 0.2 0.0 - 2.0 % Absolute Neutrophils 2.50 1.80 - 7.70 K/uL Absolute Lymphocytes 1.17 1.00 - 4.80 K/ul Absolute Monocytes 0.33 0.00 - 1.10 K/uL Absolute Eosinophils 0.07 0.00 - 0.70 K/uL Absolute Basophils 0.02 0.00 - 0.20 K/uL Absolute Immature Granulocytes 0.01 0.00 - 0.20 K/uL CA 15-3 Result Value Ref Range CA 15-3 112 (H) <32 U/mL Imaging: US BREAST LIMITED RIGHT Addendum Date: 03/26/2024 Radiologic pathologic concordance addendum will be placed on biopsy report from March 19, 2024. MAMMOGRAM DIAGNOSTIC RANDEE BILATERAL Addendum Date: 03/26/2024 Radiologic pathologic concordance addendum will be placed on biopsy report from March 19, 2024. MAMMOGRAM BREAST NEEDLE BIOPSY CORE RIGHT Addendum Date: 03/26/2024 A. 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 Imaging and pathology are concordant. Continued oncologic care is recommended as per oncologist Dr. Purvis. Malignant pathology results and follow-up oncologic care recommendations were discussed with and understood by the patient by Maryam Blair on March 25, 2024 at 4:03 p.m.. XR SHUNT SERIES Result Date: 02/14/2024 IMPRESSION There is no evidence for catheter tubing discontinuity or acute angulation. CT HEAD/BRAIN WO CONTRAST Result Date: 02/12/2024 IMPRESSION: Redemonstrated known multiple intracranial metastases involving the supratentorial and infratentorial brain, with the largest lesion centered in the left cerebellum associated with significant perilesional edema, local mass effect and similar narrowing of the 4th ventricle. Compared to 01/23/2024, there is slight increased caliber of the 3rd ventricle, detailed above. However, stable mild supratentorial ventriculomegaly when compared to MRI brain on 02/06/2024. A request to the assistant purchasing manager was placed 02/12/2024, 6:25 pm to notify the ordering clinician that the report is available in [facility] for review. MRI BRAIN W WO CONTRAST Result Date: 02/06/2024 IMPRESSION 1. Relatively stable intracranial metastatic disease as described above compared to outside MRI from 01/22/2024. The largest dural-based metastasis in the left lateral aspect of the posterior cranial fossa measures up to 4.9 cm and in conjunction with surrounding vasogenic edema is producing significant mass effect resulting in mild superior vermian and inferior cerebellar tonsillar herniation, as well as slight obstructive supratentorial ventriculomegaly. 2. Stable nonenhancing metastatic disease in the cervical and upper thoracic spine as described above. Chronic pathological compression fracture (vertebral plana) of C6 and destructive changes in the C6 articular facets, which is causing perched right C5 and C7 facets. 3. Mild degenerative changes in cervical spine without spinal canal stenosis or significant neural foraminal narrowing. MRI C SPINE W WO CONTRAST Result Date: 02/06/2024 IMPRESSION 1. Relatively stable intracranial metastatic disease as described above compared to outside MRI from 01/22/2024. The largest dural-based metastasis in the left lateral aspect of the posterior cranial fossa measures up to 4.9 cm and in conjunction with surrounding vasogenic edema is producing significant mass effect resulting in mild superior vermian and inferior cerebellar tonsillar herniation, as well as slight obstructive supratentorial ventriculomegaly. 2. Stable nonenhancing metastatic disease in the cervical and upper thoracic spine as described above. Chronic pathological compression fracture (vertebral plana) of C6 and destructive changes in the C6 articular facets, which is causing perched right C5 and C7 facets. 3. Mild degenerative changes in cervical spine without spinal canal stenosis or significant neural foraminal narrowing. MRI C SPINE W WO CONTRAST Result Date: 01/24/2024 IMPRESSION 1. No evidence of enhancing intradural/leptomeningeal metastasis or cord metastasis in the spine. Partially imaged cerebellar metastases and associated vasogenic edema, similar to recent outside MR brain 01/22/2024. 2. Widespread osseous metastases, chronic appearing pathologic fractures, and associated vertebral body height loss, as discussed. No high-grade spinal canal narrowing or cord compression. 3. 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 4. Thoracolumbar scoliosis and minor degenerative changes. MRI T SPINE W WO CONTRAST Result Date: 01/24/2024 IMPRESSION 1. No evidence of enhancing intradural/leptomeningeal metastasis or cord metastasis in the spine. Partially imaged cerebellar metastases and associated vasogenic edema, similar to recent outside MR brain 01/22/2024. 2. Widespread osseous metastases, chronic appearing pathologic fractures, and associated vertebral body height loss, as discussed. No high-grade spinal canal narrowing or cord compression. 3. 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 4. Thoracolumbar scoliosis and minor degenerative changes. MRI L SPINE W WO CONTRAST Result Date: 01/24/2024 IMPRESSION 1. No evidence of enhancing intradural/leptomeningeal metastasis or cord metastasis in the spine. Partially imaged cerebellar metastases and associated vasogenic edema, similar to recent outside MR brain 01/22/2024. 2. Widespread osseous metastases, chronic appearing pathologic fractures, and associated vertebral body height loss, as discussed. No high-grade spinal canal narrowing or cord compression. 3. 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 4. Thoracolumbar scoliosis and minor degenerative changes. CT CHEST/ABDOMEN/PELVIS WITH IV CONTRAST WITHOUT ORAL CONTRAST Result Date: 01/23/2024 IMPRESSION 1. Widespread osseous metastases. 2. C6 vertebra plana deformity partially visualized, age indeterminate. 3. T8 compression fracture deformity with 70 percent height loss. Age indeterminate. 4. L4 compression fracture deformity with mild bony retropulsion. Age indeterminate. 5. Mild T11 c ompression fracture deformity, age indeterminate. 6. Additional findings as above. CT HEAD/BRAIN WO CONTRAST Result Date: 01/23/2024 IMPRESSION: No evidence of large, acute territorial infarction or recent intracranial hemorrhage. Multiple poorly visualized metastatic lesions throughout the supratentorial and infratentorial brain with surrounding reactive edema, better characterized on external MRI brain from 01/22/2024. Stable n arrowing of the 4th ventricle related to a lesion within the left cerebellum. No evidence of obstructive hydrocephalus. Images are available in PACS for review and surgical planning purposes. Pathology Review: As above Impression: Padmaja Burris is a 38 year old female with De Sanjeev metastatic triple positive breast cancer, ER strongly + 90%, GA + 10- 20%, and HER2 3+, with multiple bony Mets, and recently brain metastasis s/p SITE AUDITOR Shunt. (Mar 2021) Molecular testing (somatic) : via [facility] which revealed Her2/codi positive, ER/GA positive PIK3CA mutation Genetic testing: Negative S/P Palliative XRT, 1 fraction (800cGy) to the lumbar spine and sacrum (04/13/2021). Palliative Syetmeic Tx with THP [docetaxel, trastuzumab, and pertuzumab] x 6 cycles (04/21/21 - 08/04/2021) Maintenance Phesgo (Trastuzumab/pertuzumab SQ) (08/26/2021- )---> Pt requested to stop because she desired .---> Resumed again (02/01/2023- Nov 2023)--> Stopped again for plans. Tamoxifen (May,- Nov 2023) SITE AUDITOR (Ventricular Peritoneal) Shunt d/t hydrocephalus (02/13/24) Xgeva--->Q 1 months, then Q 3 months (April 2021- Nov 2023) Plan: I had a very lengthy discussion with the patient, the about her disease, prognosis, treatment options. She stopped Xeloda, tucatinib after she took it only for 2 days because of GI side effects with nausea, vomiting. She refused to resume her medications as instructed by my team during my time off. Had brain MRI earlier today, report still pending. From my review, brain metastasis seems to be grossly stable, but we need to wait for her final report, and may need to discuss in brain MDC. Patient, and had many questions, all answered to the level of their satisfaction. We discussed some facts and went through some options: Considering all the information we have, we should deal with her case as metastatic HER2 positive breast cancer metastatic to the brain, and treat accordingly. Patient still has hard time to believe what she has in her brain is cancer. I offered her brain biopsy, but she declined. If no intervention, her brain metastases will continue to grow, and unfortunately will affect her mental status, can cause seizures, ICU admission, and unfortunately high likely will end her life. I clearly informed patient that her cause of we will be her brain metastases, and we should focus on options to control her disease in the brain. I highly instructed surgical resection, or radiation therapy to her brain metastasis, she still clearly and persistently declining those 2 options. We discussed that if she is not interested in receiving any systemic therapy, I would recommend hospice We discussed systemic options at this point including dose reduction of her current plan of Xeloda,and tucatinib, versus starting Enhertu. Patient also declined her last dose of Herceptin earlier this month, and she refused to take it today. She was consented to start Enhertu, and she is highly considering it, but she still wanted to checkwith 1 of the doctors in her home [place] [facility]. Print out of Enheru was given to patient and her . I wanted to start her treatment in 1 week, but she requested to delay treatment for 2 weeks from today. She asked me about role of radiation therapy, and surgery to her breast. I informed her that in thesetting of metastatic disease local control to her breast will not affect her overall survival. At 1 point she was interested in receiving radiation to her breast but definitely not to the brain. I informed her if she consider palliative radiation to right breast, it is better to do it now before we start Enhertu. I offered to discuss with Radiation Oncology if she is interested in radiation to her breast, but she also declined radiation to her breast which is reasonable. Continue monthly Xgeva, she is due today. Her tumor markers with CA 27.29, and CA 15 -3 were initially elevated. Will check those again. Will add NGS to her most recent breast biopsy. PIK3CA mutation was mentioned in old records, may also be considered as future line therapy. She lives in the [place] which is about 1-[place]/2 hour from [place], and 45 minutes from [place]. Also she has closely [place]. She may need to transfer her care to [place], or [place] (Dr. Coats, or Dr. Bonilla) D/W health care social worker Again, I spent very long time discussing with the patient her current condition, treatment options,answer all their questions. Also discussed with other team members in my department guarding treatment options. Patient, and her have many questions, all answered to the level of her satisfaction. I had a lengthy meeting with patient and her today. We reviewed all available records together including radiographic reports and images, pathologic reports, operative reports, procedure notes, and all available notes created by all medical providers involved in this case. I discussed the diagnosis, nature of the proposed intervention and its intended benefits, risks andadverse effects. Also discussed medically reasonable alternatives and their benefits, risks and adverse effects. Side effects/toxicities of Fam-trastuzumab deruxtecan , but not limited to: Possible Side Effects of Fam-trastuzumab deruxtecan-nxki There are a number of things you can do to manage the side effects of fam- trastuzumab deruxtecan-nxki. Talk to your care team about these recommendations. They can help you decide what will work bestfor you. These are some of the most common or important side effects: Lung Changes This medication may cause interstitial lung disease, including pneumonitis (inflammation of the lungs). These problems can develop immediately, but may also happen months to years after treatment is completed and may be more common in people with pre-existing lung conditions. Call your oncology care team right away if you have shortness of breath, cough, wheezing, or difficulty breathing. Low White Blood Cell Count (Leukopenia or Neutropenia) White blood cells (WBC) are important for fighting infection. While receiving treatment, your WBC count can drop, putting you at a higher risk of getting an infection. You should let your doctor or nurse know right away if you have a fever (temperature greater than 100.4F or 38C), sore throat or cold, shortness of breath, cough, burning with urination, or a sore that doesn't heal. Tips to preventing infection: Washing hands, both yours and your visitors, is the best way to prevent the spread of infection. Avoid large crowds and people who are sick (i.e.: those who have a cold, fever or cough or live with someone with these symptoms). When working in your yard, wear protective clothing including long pants and gloves. Do not handle pet waste. Keep all cuts or scratches clean. Shower or bath daily and perform frequent mouth care. Do not cut cuticles or ingrown nails. You may wear nail swedish, but not fake nails. Ask your oncology care team before scheduling dental appointments or procedures. Ask your oncology care team before you, or someone you live with has any vaccinations. Nausea and/or Vomiting Talk to your oncology care team so they can prescribe medications to help you manage nausea and vomiting. In addition, dietary changes may help. Avoid things that may worsen the symptoms, such as heavy or greasy/fatty, spicy or acidic foods (taurus, tomatoes, oranges). Try saltines, or eugene edwin to lessen symptoms. Call your oncology care team if you are unable to keep fluids down for more than 12 hours or if youfeel lightheaded or dizzy at any time Constipation There are several things you can do to prevent or relieve constipation. Include fiber in your diet (fruits and vegetables), drink 8-10 glasses of non-alcoholic fluids a day, and keep active. A stool softener once or twice a day may prevent constipation. If you do not have a bowel movement for 2-3 days, you should contact your healthcare team for suggestions to relieve the constipation. Diarrhea Your oncology care team can recommend medications to relieve diarrhea. Also, try eating low-fiber, bland foods, such as white rice and boiled or baked chicken. Avoid raw fruits, vegetables, whole-grain breads, cereals, and seeds. Soluble fiber is found in some foods and absorbs fluid, which can help relieve diarrhea. Foods high in soluble fiber include: applesauce, bananas (ripe), canned fruit, orange sections, boiled potatoes, white rice, products made with white flour, oatmeal, cream of rice,cream of wheat, and farina. Drink 8-10 glasses of non- alcoholic, un-caffeinated fluid a day to prevent dehydration. Fatigue Fatigue is very common during cancer treatment and is an overwhelming feeling of exhaustion that isnot usually relieved by rest. While on cancer treatment, and for a period after, you may need to adjust your schedule to manage fatigue. Plan times to rest during the day and conserve energy for moreimportant activities. Exercise can help combat fatigue; a simple daily walk with a friend can help. Talk to your healthcare team for helpful tips on dealing with this side effect. Loss or Thinning of Scalp and Body Hair (Alopecia) Your hair may become thin, brittle, or may fall out. This typically begins two to three weeks aftertreatment starts. This hair loss can be all body hair, including pubic, underarm, legs/arms, eyelashes, and nose hairs. The use of scarves, wigs, hats, and hairpieces may help. Hair generally starts to regrow soon after treatment is completed. Remember your hair helps keep you oil prospecting observer cold weather,so a hat is particularly important in cold weather or to protect you from the sun. Decrease in Appetite or Taste Changes Nutrition is an important part of your care. Cancer treatment can affect your appetite and, in somecases, the side effects of treatment can make eating difficult. Ask your oncology care team about nutritional counseling services at your treatment center to help with food choices. Try to eat five or six small meals or snacks throughout the day, instead of 3 larger meals. If you are not eating enough, nutritional supplements may help. You may experience a metallic taste or find that food has no taste at all. You may dislike foods orbeverages that you liked before receiving cancer treatment. These symptoms can last for several months or longer after treatment ends. Avoid any food that you think smells or tastes bad. If red meat is a problem, eat chicken, turkey, eggs, dairy products, and fish without a strong smell. Sometimes cold food has less of an odor. Add extra flavor to meat or fish by marinating it in sweet juices, sweet and sour sauce, or dressings. Use seasonings like basil, oregano, or bev to add flavor. [place]ar, ham, and onion can add flavor to vegetables. Low Red Blood Cell Count (Anemia) Your red blood cells are responsible for carrying oxygen to the tissues in your body. When the red cell count is low, you may feel tired or weak. You should let your oncology care team know if you experience any shortness of breath, difficulty breathing, or pain in your chest. If the count gets toolow, you may receive a blood transfusion. Low Platelet Count (Thrombocytopenia) Platelets help your blood clot, so when the count is low you are at a higher risk of bleeding. Let your oncology care team know if you have any excess bruising or bleeding, including nose bleeds, bleeding gums, or blood in your urine or stool. If the platelet count becomes too low, you may receive a transfusion of platelets. Do not use a razor (an electric razor is fine). Avoid contact sports and activities that can result in injury or bleeding. Do not take aspirin (salicylic acid), non-steroidal, anti-inflammatory medications (NSAIDs) such asMotrin/Advil (ibuprofen), Aleve (naproxen), Celebrex (celecoxib), etc. as these can all increase the risk of bleeding. Please consult with your healthcare team regarding the use of these agents and all fmvj-jhs-dlfbrnt medications/supplements while on therapy. Do not floss or use toothpicks and use a soft-bristle toothbrush to brush your teeth. Cough Report a new or worsening cough to your oncology care team. Electrolyte Abnormalities This medication can affect the normal levels of electrolytes (potassium, magnesium, calcium, etc.) in your body. Your levels will be monitored using blood tests. If your levels become too low, your care team may prescribe specific electrolytes to be given by IV or taken by mouth. Do not take any sup plements without first consulting with your care team. Liver Toxicity This medication can cause liver toxicity, which your oncology care team may monitor for using bloodtests called liver function tests. Notify your healthcare provider if you notice yellowing of the skin or eyes, your urine appears dark or brown, or you have pain in your abdomen, as these can be signs of liver toxicity. Important but Less Common Side Effects Heart Problems: Fam-trastuzumab deruxtecan-nxki can cause or worsen pre-existing heart problems including congestive heart failure, restrictive cardiomyopathy, decreased heart function, and heart attack. Notify your healthcare provider if you have sudden weight gain or swelling in the ankles or legs. If you develop chest pain or pressure, pain in the left arm, back, or jaw, sweating, shortness ofbreath, clammy skin, nausea, dizziness or lightheadedness, call 911 or go to the nearest emergency room. Sexual & Reproductive Concerns This medication may affect a vanesa reproductive system, resulting in sperm production becoming irregular or stopping permanently. In addition, the desire for sex may decrease during treatment. You may want to consider sperm banking if you may wish to have a child in the future. Discuss these options with your oncology team. Exposure of an unborn child to this medication could cause defects, so you should not become or father a child while on this medication. For women, effective control is necessaryduring treatment and for at least 7 months after treatment, even if your menstrual cycle stops. Formen, effective control is necessary during treatment and for at least 4 months after treatment, even if you believe you are not producing sperm. You should not breastfeed while receiving this medication and for at least 7 months after your last dose. Discussed small risk of increased mortality from chemotherapy. Armed with this data, patient decided to proceed with treatment. She will follow up in clinic to initiate/manage treatment. All questions were answered completely and to the patient's satisfaction Plan CA 27.29 CBC with WBC Differential Comprehensive Metabolic Panel Phosphorus New Oncology Treatment Plan Protocol: BREAST - OP Fam-trastuzumab deruxtecan- nxki (Breast) [id number] --- Number of cycles: 20 --- Weight based dosing: Most recent weight (actual weight) --- Intent of chemotherapy treatment: Palliative --- Line of t... Check-out note: CBC/Diff, CMP, Phos today, CA 27.29 XGEVA today (please add to shot schedule) RTC in 2 weeks with Tatyana or Arturo for a visit, CBC/Diff, CMP, and RX 4 This chart was completed in part utilizing Prompt[employer] Speech Voice Recognition Software. Grammatical errors, random word insertions, pronoun errors, and incomplete sentences are an occasional consequence of this system due to software limitations, ambient noise, and hardware issues. Any formal questions or concerns about the content, text, or information contained within the body of this dictation should be directly addressed to the provider for clarification. I spent a total time of 110 minutes on the date of service in preparation, delivery, and documentation of the care provided, excluding any time spent in the performance of separately billed services. documented in this encounter Nursing Notes * Christine Wilburn CNA - 04/11/2024 9:29 AM EST Room 2 Patient was instructed to not get up on the exam table/exam chair until directed and assisted by their provider; patient is to remain seated in the chair/ wheelchair/ exam table/ exam chair for fall prevention and safety reasons. Patient is aware to have assistance to step down off exam table/exam chair with personnel. Patient voiced full comprehension of instructions. documented in this encounter Plan of Treatment Upcoming Encounters Date Type Department Care Team (Late st Contact Info) Description 04/12/2024 11:45 AM EST Pharmacy Pharmacy Hematology Oncology [address] [address] [facility] [address] 04/24/2024 10:00 AM EDT Telemedicine Psychology [address] [address] Berry Goldberg PsyD [place] [address] 04/25/2024 8:15 AM EDT Nurse Only Hematology Oncology [facility], [address] [address] [place], Nurse Lab Hem/Onc [address] [place] [address] 04/25/2024 9:00 AM EDT Office Visit Hematology Oncology [facility], [address] [phone] Arturo Lizarraga CRNP [facility] [place], [place] [phone] 04/25/2024 10:00 AM EDT Hem/Onc Treatment Hematology Oncology [facility], [address] [phone] [place], Chair 15 Hem/Onc [address] [place] [address] [phone] 04/26/2024 2:30 PM EDT Office Visit Palliative Medicine [facility], [address] [phone] Vicente Henry MD [facility] [place], [place] [phone] Pending Results Name Type Priority Associated Diagnoses Date /Time CA 27.29 Lab STAT 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) 04/11/2024 10:45 AM EST ANATOMIC PATHOLOGY (BM/SURGICAL/CYTOLOGY) ADD ON REQUEST Lab Routine 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) 04/11/2024 11:24 AM EST Scheduled Orders Name Type Priority Associated Diagnoses Orde r Schedule CA 27.29 Lab STAT 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) Expected: 04/11/2024, Expires: 04/11/2025 Health Maintenance Due Date Last Done Comments COVID-19 Vaccine (#1) 10/14/1988 Depression Screening 1995 Influenza Vaccine (FLU shot) (#1) 2023 Meningitis B Vaccine (Bexsero/Trumemba) Aged Out No longer eligible b ased on patient's age to complete this topic documented as of this encounter Medical Devices Implanted Type Area Butt Welder Device Identifier Shelf Expiration Date Model / Serial / Lot Valve Program Certal Pls - [id number] Implanted:Qty: 1 on 02/13/2024 by Oswaldo Rehman MD at [place] [facility] [place] Right: Head [employer] JENNIFER [id number] 10/13/2028 [id number] / / [id number] Cath Vent Bactiseal [id number] - [id number] Implanted:Qty: 1 on 02/13/2024 by Oswaldo Rehman MD at [place] [facility] [place] Right: Head [employer] JENNIFER [id number] 11/12/2024 82-3072 / / [id number] Valve Program Certal Pls - [id number] Implanted:Qty: 1 on 02/13/2024 by Oswaldo Rehman MD at [place] [facility] [place] Right: Head [employer] JENNIFER [id number] 10/13/2028 [id number] / / [id number] Marker Site Biopsy - [id number] Implanted:Qty: 1 on 03/19/2024 at [facility] [employer] TRIMARK EVIVA 2S-13 / / documented as of this encounter Results * PHOSPHORUS (04/11/2024 10:45 AM EST) [facility] Phosphorus 3.9 2.5 - 4.8 mg/dL 04/11/2024 11:42 AM EST LABORATORY [facility] [place] Blood Blood sample taken from central line / Unknown Central Line / Unknown 04/11/2024 10:45 AM EST 04/11/2024 11:12 AM EST us Huang Joe MD LAB BLOOD ORDERABLE S Final Result LABORATORY [facility] [place] [address] [place] [address] * (ABNORMAL) COMPREHENSIVE METABOLIC PANEL (04/11/2024 10:45 AM EST) [facility] BUN 15 6 - 20 mg/dL 04/11/2024 [...] S Final Result LABORATORY [facility] [address] [place] [address] documented in this encounter Visit Diagnoses Diagnosis 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 S/P SITE AUDITOR shunt Presence of cerebrospinal fluid drainage device Stage IV breast cancer in female (HCC) Brain mass Unspecified condition of brain 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 Encounter for chemotherapy management Encounter to discuss test results Other specified counseling Encounter to discuss treatment options Other specified counseling Goals of care, counseling/discussion Other specified counseling Abnormal biopsy result Difficulty coping with disease Other signs and symptoms involving emotional state Need for emotional support documented in this encounter Advance Directives * [...] Advance Directives occurred with: Patient Care Teams Biophysics Professor Relationship Specialty Start Date End Date Gwendolyn Han MD [address] [place] [facility] [address] PCP - General Hematology/Oncology 03/29/24 documented as of this encounter
--- OUTSIDE RECORDS SUMMARY | 2024-04-16 15:04 | External Medical Summary | Summary of Care ---
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 GEAR CHANGER shunt Procedures MRI BRAIN W WO CONTRAST Lynda Mendez CRNP [address] [place] [address] Phone: tel: fax: Referral ID Status Reason Start Date Expiration Date V isits Requested Visits Authorized [id number] Authorized Precert 03/27/2024 07/12/2024 [id number] Reason for Visit * Precert (Within 10 days (routine)) - Authorized Specialty Diagnoses / Procedures Referred By Contac t Referred To Contact Radiology Diagnoses 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) Brain compression (HCC) 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 GEAR CHANGER shunt Procedures MRI BRAIN W WO CONTRAST Lynda Mendez CRNP [address] [place] [address] Phone: tel: fax: Referral ID Status Reason Start Date Expiration Date V isits Requested Visits Authorized [id number] Authorized Precert 03/27/2024 07/12/2024 [id number] Encounter Details Date Type Department Care Team (Latest Contact Info) Description 04/11/2024 6:15 AM EST - 04/11/2024 11:59 PM EST Hospital Encounter JOHN, Eulogio [address] [place] [address] Arrived Discharge Disposition: Home - Self Care Allergies Active Allergy Reactions Criticality Noted Date Comments Heparin Unknown 02/22/2024 Per patient - cannot have Heparin as it contains a pork product. Please do not use heparin for port flush. documented as of this encounter (statuses as of 04/12/2024) Medications Glucosamine-Chondro itin Max St Oral Capsule [...] as of this encounter (statuses as of 04/12/2024) Active Problems Patient Care Coordination No te Formatting of this note migh t be different from the original. 246: 03/06/2024 Patient reacted to Other Ontruzant [id number] After receiving emergency meds, patient symptoms resolved and completed remaining dose at full rate(titrated rates per Bonita Dominguez PAC) see RN note/MAR. Problem Noted Date Diagnosed [...] as of this encounter (statuses as of 04/12/2024) Resolved Problems Problem Noted Date Diagnosed Date Resolved Date Obstructive hydrocephalus 02/04/2024 documented as of this encounter (statuses as of 04/12/2024) Social History Tobacco Use Types Packs/Day Years Used Date Smoking Tobacco: Never Alcohol Use Standard Drinks/Week Comments Never 0 (1 standard drink = 0.6 oz pur e alcohol) Hunger Vital Sign Answer Date Recorded Within the past 12 months, y ou worried that your food would run out before you got the money to buy more. Never true 04/11/19 Within the past 12 months, t he [...] 04/11/2024 Does the household have a re lar source of income? (Household - for ages [...] Description 04/24/2024 10:00 AM EDT Telemedicine Psychology [address] [phone] Berry Goldberg PsyD [address] [place] [phone] 04/25/2024 8:15 AM EDT Nurse Only Hematology Oncology [address] [address] [place], Nurse Lab Hem/Onc [address] [place] [phone] 04/25/2024 9:00 AM EDT Office Visit Hematology Oncology [address] [phone] Arturo Lizarraga CRNP [address] [place] [phone] 04/25/2024 10:00 AM EDT Hem/Onc Treatment Hematology Oncology [address] [address] [place], [address] Hem/Onc [address] [place] [id number] 04/26/2024 2:30 PM EDT Office Visit Palliative Medicine [address] [phone] Vicente Henry MD [address] [place] [address] Health Maintenance Due Date Last Done Comments COVID-19 Vaccine (#1) 10/14/1988 Depression Screening 1995 Influenza Vaccine (FLU shot) (#1) 2023 Meningitis B Vaccine (Bexsero/Trumemba) Aged Out No longer eligible b ased on patient's age to complete this topic documented as of this encounter Medical Devices Implanted Type Area Faith Doctor Device Identifier Shelf Expiration Date Model / Serial / Lot Valve Program Certal Pls - [id number] Implanted:Qty: 1 on 02/13/2024 by Oswaldo Rehman MD at OR [facility] [place] Right: Head [employer] JENNIFER [id number] 10/13/2028 [id number] / / [id number] Cath Vent Bactiseal [id number] - [id number] Implanted:Qty: 1 on 02/13/2024 by Oswaldo Rehman MD at OR [facility] [place] Right: Head [employer] JENNIFER [id number] 11/12/2024 82-3072 / / [id number] Valve Program Certal Pls - [id number] Implanted:Qty: 1 on 02/13/2024 by Oswaldo Rehman MD at OR [facility] [place] Right: Head [employer] JENNIFER [id number] 10/13/2028 [id number] / / [id number] Marker Site Biopsy - [id number] Implanted:Qty: 1 on 03/19/2024 at [facility] [employer] TRIMARK EVIVA 2S-13 / / documented as of this encounter Procedures Procedure Name Priority Date/Time Associated Diagnosis Comments MRI BRAIN W WO CONTRAST Routine 04/11/2024 7:38 AM EST 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 Redemonstration of extensive metastatic disease throughout the brain, with slight interval increase in size of a few lesions, as described above. 2. Redemonstrated mass effect within the posterior fossa with complete effacement of the 4th ventricle, rightward midline shift, and downward cerebellar tonsillar herniation. 3. Right frontal approach intraventricular catheter with decompression of the ventricular system. Narrative 04/11/2024 11:36 AM EST EXAM: MRI BRAIN W WO CONTRAST 04/11/2024 HISTORY: metastatic breast cancer, concern for worsening disease; Headache; Cancer/tumor, known or r/o; New AMEZQUITA; No known/automatically detected potential contraindications to imaging TECHNIQUE: Multiplanar multisequence magnetic resonance imaging of the brain was obtained before and after administration of intravenous contrast. COMPARISON: MRI brain 02/06/2024 FINDINGS: There is susceptibility artifact from a right frontal approach intraventricular catheter terminating in the region of the roof of the 3rd ventricle. The ventricular system is essentially completely decompressed. There is redemonstration of extensive heterogeneously enhancing metastatic disease throughout the supratentorial and infratentorial brain. There has been slight interval increase in size in a large metastatic lesion along the lateral aspect of the left cerebellar hemisphere now measuring approximately 5 x 3.7 cm in axial dimension on series 19, image 44, previously 5 x 3.1 cm when measured in a similar plane on prior. This abuts the left transverse and sigmoid sinuses, which remain patent. It is unclear if this mass is intra-axial or extra-axial in location. A right temporal lobe lesion measures 2.7 x 2.8 cm on series 19, image 63, previously 2.3 x 2.5 cm when measured in a similar plane on prior. Two separate 5 mm lesions of the right cerebellar hemisphere on image 42 and the left cerebellar hemisphere on image 60 are slightly more conspicuous from prior imaging. Multiple additional metastatic lesions do not appear significantly changed. There is redemonstrated T2 hyperintense vasogenic edema surrounding many of the lesions, most pronounced surrounding the left cerebellar mass. There is complete effacement of the 4th ventricle, rightward midline shift within the posterior fossa, as well as downward cerebellar tonsillar herniation that is similar to prior. No evidence of an acute infarct or hemorrhage. No extra-axial fluid collection. The flow voids of the major intracranial arteries are grossly preserved. No acute calvarial or orbital abnormality. The visualized paranasal sinuses and mastoid air cells are clear. Procedure Note Shahzad Wagoner MD - 04/11/2024 EXAM: MRI BRAIN W WO CONTRAST 04/11/2024 HISTORY: metastatic breast cancer, concern for worsening disease; Headache;Cancer/tumor, known or r/o; New AMEZQUITA; No known/automatically detectedpotential contraindications to imaging TECHNIQUE: Multiplanar multisequence magnetic resonance imaging of the brain wasobtained before and after administration of intravenous contrast. COMPARISON: MRI brain 02/06/2024 FINDINGS: There is susceptibility artifact from a right frontal approachintraventricular catheter terminating in the region of the roof of the 3rdventricle. The ventricular system is essentially completelydecompressed. There is redemonstration of extensive heterogeneously enhancing metastaticdisease throughout the supratentorial and infratentorial brain. There hasbeen slight interval increase in size in a large metastatic lesion alongthe lateral aspect of the left cerebellar hemisphere now measuringapproximately 5 x 3.7 cm in axial dimension on series 19, image 44,previously 5 x 3.1 cm when measured in a similar plane on prior. Thisabuts the left transverse and sigmoid sinuses, which remain patent. It isunclear if this mass is intra-axial or extra-axial in location. A righttemporal lobe lesion measures 2.7 x 2.8 cm on series 19, image 63,previously 2.3 x 2.5 cm when measured in a similar plane on prior. Two separate 5 mm lesions of the right cerebellar hemisphere on image 42and the left cerebellar hemisphere on image 60 are slightly moreconspicuous from prior imaging. Multiple additional metastatic lesions donot appear significantly changed. There is redemonstrated T2 hyperintense vasogenic edema surrounding manyof the lesions, most pronounced surrounding the left cerebellar mass.There is complete effacement of the 4th ventricle, rightward midline shiftwithin the posterior fossa, as well as downward cerebellar tonsillarherniation that is similar to prior. No evidence of an acute infarct or hemorrhage. No extra-axial fluidcollection. The flow voids of the major intracranial arteries are grosslypreserved. No acute calvarial or orbital abnormality. The visualized paranasalsinuses and mastoid air cells are clear. IMPRESSION IMPRESSION: 1. Redemonstration of extensive metastatic disease throughout the brain,with slight interval increase in size of a few lesions, as describedabove. 2. Redemonstrated mass effect within the posterior fossa with completeeffacement of the 4th ventricle, rightward midline shift, and downwardcerebellar tonsillar herniation. 3. Right frontal approach intraventricular catheter with decompression ofthe ventricular system. 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 GEAR CHANGER shunt Presence of cerebrospinal fluid drainage device documented in this encounter Administered Medications Inactive Administered Medications - up to 3 most recent administrations Medication Order MAR Action Action Date Dose Rate Site gadobutrol (Gadavist) inj 6 mL 6 mL (rounded from 5.98 mL = 0.1 mL/kg 59.8 kg), Intravenous, ONCE, On Yvonne 04/11/24 at 0741, For 1 dose, Radiology Medication Routing (Non-IR) Given 04/11/2024 7:41 AM EST 6 mL documented in this encounter Advance Directives * [...] Advance Directives occurred with: Patient Care Teams Welfare Supervisor Relationship Specialty Start Date End Date Gwendolyn Han MD [address] [place] [facility] [place] [address] PCP - General Hematology/Oncology 03/29/24 documented as of this encounter
--- OUTSIDE RECORDS SUMMARY | 2024-04-16 15:04 | External Medical Summary | Summary of Care ---
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) Procedures OK DENOSUMAB INJECTION Huang Hardy MD [address] [place] [address] Phone: tel: fax: Hematology Oncology [place] [address] [place] [phone] Phone: tel: fax: Referral ID Status Reason Start Date Expiration Date V isits Requested Visits Authorized [id number] Authorized 02/29/2024 05/29/2024 999 4 Encounter Details Date Type Department Care Team (Late st Contact Info) Description 04/11/2024 10:45 AM EST Immunization/I njection Hematology Oncology [place] [address] [place] [address] Nurse, Med 4 [address] [place] [address] 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 Problem Noted Date Diagnosed [...] 11:45 AM EST Pharmacy Pharmacy Hematology Oncology [address] [address] [facility] Hem/Onc [address] [place] [id number] 04/24/2024 10:00 AM EDT Telemedicine Psychology [address] [phone] Berry Goldberg PsyD [facility] [place], [place] [phone] 04/25/2024 8:15 AM EDT Nurse Only Hematology Oncology [address] [phone] [place], Nurse Lab Hem/Onc [address] [place] [address] [phone] 04/25/2024 9:00 AM EDT Office Visit Hematology Oncology [address] [phone] Arturo Lizarraga CRNP [facility] [address] [place], [place] [phone] 04/25/2024 10:00 AM EDT Hem/Onc Treatment Hematology Oncology [address] [phone] [place], Chair 15 Hem/Onc [address] [place] [address] [id number] 04/26/2024 2:30 PM EDT Office Visit Palliative Medicine [address] [phone] Vicente Henry MD [facility] [place] [address] [phone] (work) Health Maintenance Due Date Last Done Comments COVID-19 Vaccine (#1) 10/14/1988 Depression Screening 1995 Influenza Vaccine (FLU shot) (#1) 2023 Meningitis B Vaccine (Bexsero/Trumemba) Aged Out No longer eligible b ased on patient's age to complete this topic documented as of this encounter Medical Devices Implanted Type Area Jet Worker Device Identifier Shelf Expiration Date Model / Serial / Lot Valve Program Certal Pls - [id number] Implanted:Qty: 1 on 02/13/2024 by Oswaldo Rehman [place] [facility] Head [employer]ENN[employer]ER [id number] 10/13/2028 [id number] / / [id number] Cath Vent Bactiseal [id number] - [id number] Implanted:Qty: 1 on 02/13/2024 by Oswaldo Rehman [place] [facility] [place]: Head [employer]ENN[employer]ER [id number] 11/12/2024 82-3072 / / [id number] Valve Program Certal Pls - [id number] Implanted:Qty: 1 on 02/13/2024 by Oswaldo Rehman [place] [facility] Right: Head [employer] JENNIFER [id number] 10/13/2028 [id number] / / [id number] Marker Site Biopsy - [id number] Implanted:Qty: 1 on 03/19/2024 at [facility] [employer] TRIMARK EVIVA 2S-13 / / documented as of this encounter Visit Diagnoses Diagnosis 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 documented in this encounter Administered Medications Inactive Administered Medications - up to 3 most recent administrations Medication Order MAR Action Action Date Dose Rate Site Denosumab (Xgeva) subcut inj 120 mg 120 mg, Subcutaneous, ONCE, On Yvonne 04/11/24 at 1300, For 1 doseIndications:Metastasi s from HER2 positive carcinoma of breast (HCC) Given 04/11/2024 11:55 AM EST 120 mg Arm Right Upper documented in this encounter Advance Directives * [...] Advance Directives occurred with: Patient Care Teams Adobe Maker Relationship Specialty Start Date End Date Gwendolyn Han MD [address] [place] [facility] [place] [address] PCP - General Hematology/Oncology 03/29/24 documented as of this encounter
--- OUTSIDE RECORDS SUMMARY | 2024-04-16 15:05 | External Medical Summary | Summary of Care ---
Author Name Unknown Organization [facility] Address [address] [place] [address] Phone [phone] Care Team Providers Care Order Picker/Assembler Name Role Phone Gwendolyn Han MD Primary Care Provider [phone] Encounter Details Date Type Department Care Team (Late st Contact Info) Description 04/11/2024 8:00 AM EST Office Visit [facility] [place] [address] [place] [address] Radha Morrison PA-C [address] [place] [address] S/P FRETTED INSTRUMENT INSPECTOR shunt* Allergies Active Allergy Reactions Criticality Noted Date [...] AM EST 5 Active Cholecalciferol 50 MCG (1999 [place]) Oral TabletIndications:M etastasis from HER2 positive [...] RN note/MAR. Problem Noted Date Diagnosed Date CINV (chemotherapy-induced nausea and vomiting) 03/15/2024 Metastasis [...] drink = 0.6 oz pur e alcohol) Personal Safety Answer Date Recorded Do you feel unsafe or have concerns for your saf ety? No 01/23/2024 Do you have concerns for you r family's safety? (Household - for ages 0-17 years) Not on file 01/23/2024 Utilities Answer Date Recorded Do you have trouble paying y our heating, water, or electric bill? No 01/23/2024 Is your family able to pay t he heat, water, or electric bill? (Household - for ages 0-17 years) Not on file 01/23/2024 Does your family have access to good internet? (Household - for ages 0-17 years) Not on file 01/23/2024 Transportation Needs Answer Date Record ed Do you have trouble getting a ride to medical visits or work? (Adult - for ages 18 years and over) Not on file 01/23/2024 Does your family have a hard time getting a ride to doctors visits? (Household - for ages 0-17 years) Not on file 01/23/2024 Has lack of transportation k ept you from medical appointments, meetings, work, or from getting things needed for daily living? Check all that apply. No 01/23/2024 Do you (or your family) have trouble finding or paying for a ride (transportation)? (Household - for ages 0-17 years) Not on file 01/23/2024 Housing Stability Answer Date Recorded Do you currently live in a s helter or have no steady place to sleep at night? (Adult - for ages 18 years and over) Not on file 01/23/2024 Do you think you are at risk of becoming homeless? (Adult - for ages 18 years and over) Not on file 01/23/2024 Does your family worry about paying for your home or becoming homeless? (Household - for ages 0-17 years) Not on file 1 03/25/2023 Are you homeless or worried that you might be in the future? No 01/23/2024 Are you (or your family) yrn eless [...] file 01/23/2024 Food Insecurity Answer Date Recorded Worried About Running Out of Food in the Last Ye ar Not on file 01/23/2024 Ran Out of Food in the Last Year Not on file 01/23/2024 Do you need food for this week? No 01/23/2024 Comments No Sex and Gender Information Value [...] documented in this encounter Progress Notes * Radha Morrison PA-C - 04/11/2024 7:57 AM EST PROCEDURE NOTE - Neurosurgery [facility] [place] [place] [address] Name: Padmaja Burris Date: 04/11/2024 Time: 7:57 AM Date and Time of Procedure: 04/11/2024; Time 7:57 AM PRIOR TO PROCEDURE: The risks, benefits, alternatives, and personnel involved have been discussed with the patient and/or family in detail. They seem to understand and wish to proceed. Verify Correct Patient: Yes Verify Correct Site: Yes Verify Procedure Matches Verbalized Consent: N/A Verify Correct Position: N/A Availability of Necessary Equipment: Yes Other Healthcare Professional(s) Verbalize(s) Agreement with Timeout: N/A Site Marked: Site obvious PROCEDURE NOTE Procedure: CSF shunt reprogram Indication: MRI Business Services Administrator/Community Health Outreach Worker: Radha Morrison PA-C / Dr. Rehman Complication/Corrective Action: none Findings: Certas set at 5 Description of the Procedure: The patient's shunt valve was located by palpation. The school director's programming device was used to verify the setting at 5. No adjustment required. I performed the procedure. Radha Morrison PA-C Neuroscience [place] [address] [place] [place] [address] 04/11/2024 7:58 AM documented in this encounter Plan of Treatment Upcoming Encounters Date Type Department Care Team (Late st Contact Info) Description 04/11/2024 9:00 AM EST Office Visit Hematology Oncology [address] [phone] Huang Joe MD [facility] [place] [address] 04/12/2024 11:45 AM EST Pharmacy Pharmacy Hematology Oncology [address] [phone] [facility] Hem/Onc [address] [place] [phone] 04/24/2024 10:00 AM EDT Telemedicine Psychology [address] [address] Berry Goldberg PsyD [address] [place] [address] 04/26/2024 2:30 PM EDT Office Visit Palliative Medicine [facility] [address] [place] [address] Vicente Henry MD [address] [place] [address] Health Maintenance Due Date Last Done Comments COVID-19 Vaccine (#1) 10/14/1988 Depression Screening 1995 Influenza Vaccine (FLU shot) (#1) 2023 Meningitis B Vaccine (Bexsero/Trumemba) Aged Out No longer eligible b ased on patient's age to complete this topic documented as of this encounter Medical Devices Implanted Type Area Ultimate Hoops Trainer Device Identifier Shelf Expiration Date Model / Serial / Lot Valve Program Certal Pls - [id number] Implanted:Qty: 1 on 02/13/2024 by Oswaldo Rehman MD at [place] [facility] [place] Right: Head [employer] JENNIFER [id number] 10/13/2028 [id number] / / [id number] Cath Vent Bactiseal [id number] - [id number] Implanted:Qty: 1 on 02/13/2024 by Oswaldo Rehman MD at [facility] [address] Right: Head [employer]ENN[employer]ER [id number] 11/12/2024 [id number] / / [id number] Valve Program Certal Pls - [id number] Implanted:Qty: 1 on 02/13/2024 by Oswaldo Rehman MD at [facility] [address] Right: Head [employer] [id number] 10/13/2028 [id number] / / [id number] Marker Site Biopsy - [id number] Implanted:Qty: 1 on 03/19/2024 at [facility] [employer] COREY EVIVA 2S-13 / / documented as of this encounter Visit Diagnoses Diagnosis S/P FRETTED INSTRUMENT INSPECTOR shunt- Primary Presence of cerebrospinal fluid drainage device documented in this encounter Advance Directives * [...] Advance Directives occurred with: Patient Care Teams Order Picker/Assembler Relationship Specialty Start Date End Date Gwendolyn Han MD [address] [place] [facility] [place] [address] PCP - General Hematology/Oncology 03/29/24 documented as of this encounter
--- OUTSIDE RECORDS SUMMARY | 2024-04-16 15:05 | External Medical Summary | Summary of Care ---
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) Encounter for antineoplastic immunotherapy Procedures RI INJ ONTRUZANT 10 MG Huang Joe MD [address] [place] [address] Phone: tel: fax: Hematology Oncology [place] [address] [place] [address] Phone: tel: fax: Referral ID Status Reason Start Date Expiration Date V isits Requested Visits Authorized [id number] Authorized 02/29/2024 05/29/2024 999 4 Encounter Details Date Type Department Care Team (Latest Contact Info) Description 03/06/2024 10:30 AM EST Hem/Onc Treatment Hematology Oncology [address] [phone] [place], Chair 18 Hem/Onc [address] [place] [address] [phone] 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 Please do not use heparin for port flush. documented as of this encounter (statuses as of 04/09/2024) Medications Glucosamine-Chondro itin Max St Oral Capsule [...] 5 03/05/2024 11:59 AM EST 5 Active documented as of this encounter (statuses as of 04/09/2024) Active Problems Patient Care Coordination No te Formatting of this note migh t be different from the original. 246: 03/06/2024 Patient reacted to Other Ontruzant d1c1 After receiving emergency meds, patient symptoms resolved and completed remaining dose at full rate(titrated rates per Bonita GRANADO) see RN note/MAR. Problem Noted Date Diagnosed Date Metastasis from HER2 positive carcinoma of breas [...] as of this encounter (statuses as of 04/09/2024) Resolved Problems Problem Noted Date Diagnosed Date Resolved Date Obstructive hydrocephalus 02/04/2024 documented as of this encounter (statuses as of 04/09/2024) Social History Tobacco Use Types Packs/Day Years [...] food for this week? No 01/23/2024 Comments Unknown Sex and Gender Information Value Date Recorded Sex Assigned at Not on file Legal Sex Female 9:43 AM EDT Gender Identity Not on file Sexual Orientation Not on file documented as of this encounter Last Filed Vital Signs Vital Sign Reading Time Taken Comments Blood Pressure 125/83 03/06/2024 2:23 PM EST Pulse 113 03/06/2024 2:23 PM EST Temperature 37 C (98.6 F) 03/06/2024 1:50 PM EST Respiratory Rate 16 03/06/2024 2:23 PM EST Oxygen Saturation 100% 03/06/2024 1:35 PM EST ra Inhaled Oxygen Concentration - - Weight - - Height - - Body Mass Index - - documented in this encounter Functional Status * [...] 02/05/2024 12:29 AM Shakira Aden, ANDRÉS * Do you have difficulty dressing or [...] Shakira Aden RN documented in this encounter Nursing Notes * Reena Iglesias, ANDRÉS - 03/06/2024 4:26 PM EST Images from the original note were not included. Nursing Infusion Reaction note Padmaja Burris [id number] 03/06/2024 12:46 PM I was contacted by this patient with complaints of GRADE 1 & 2 SYMPTOMS MILD TO MODERATE CHILLS/RIGORS The patient's infusion of D1C1 Ontruzant at 170ml/hr was immediately stopped and disconnected from patient. Pt was assessed by RN for other s/s of reaction pt denied shortness of breath, difficulty breathing/swallowing, no rashes, face/lip/tongue swelling, hives, chest pain/tightness, back pain, itching, abdominal cramps/pain, dizziness, rapid heartbeat, light-headedness, flushing, nausea or vomiting, or any unusual feeling or pain. Only reported chills. IV of 500ml/hr NSS 0.9% was initiated per reaction protocol. Vital signs associated with this reaction: BP Readings from Last 2 Encounters: 03/06/24 125/83 03/06/24 106/72 Pulse Readings from Last 2 Encounters: 03/06/24 113 03/06/24 86 Resp Readings from Last 2 Encounters: 03/06/24 16 03/06/24 18 SpO2 Readings from Last 2 Encounters: 03/06/24 100% 03/06/24 100% see flowsheet for additional vitals. Emergency medications were given including Hydrocortisone 100 mg IV push, benadryl 25mg IVP Rayo Dominguez PAC was notified immediately by RN via TT, Rayo Dominguez PAC came to patient chairside for evaluation/reassessment. Direction given was to hold Benadryl 50mg IVP (r/t previous given premeds) and reassess patient until chills resolved completely to restart at 1/2 rate (85ml/hr) and titrateby 25ml/hr Q 15 mins until reach max rate of 170ml/hr. Infusion was stopped from [id number]. Reassessment for resolved symptoms occurred Q 15 mins. Related to persistent chills (pt stated not worsening but getting better), TT to Rayo Dominguez [facility] reporting this and order for Benadryl 25mg IVP ordered and administered per MAR at 1357. Disposition at conclusion of reaction: Pt was reassessed at 1425, pt states her chills completely resolved and Ontruzant was restarted, completed remaining dose titrated up to full rate per Danielle Dominguez PAC direction- see MAR without further reported reactions or issues. Dr Francisco, Dr Joe and Specialty Nurse Sandra Ramires also notified. * Reena Iglesias RN - 03/06/2024 12:51 PM EST Old treatment room Chair 4 Ok to proceed with treatment today per Dr Francisco Pt was agreeable to proceed with treatment Safety and Risk for Injury Goals: Patient will remain free from serious injury/falls Assess patient's risk for falls Ensure various appropriate safety devices are available and utilized Ensure patient has working call allred within reach at all times Educate patient how to utilize heat/massage function on chair (if applicable) safely Provide and maintain safe environment, clutter free, adequate lighting Implement fall prevention plan of care Include patient in decisions related to safety Perform safety rounds/ assessments frequently Possible barriers to meeting goals: IV pole/medical equipment, disease process, unfamiliar environment Stability of the patient: Moderately stable - low risk of patient condition declining or worsening Patient instructed on use of heat and massage functions on treatment chair where applicable. Patient shown how to operate the heat function of the chair (high, medium, low settings, turning upheat, turning down heat, which each light setting is to reflect those) Instructed patient to alert nursing staff if the chair feels too warm, working call allred placed within reach of patient. Patient agreeable. Educated patient on the risk of potential jackson while using the heat function. Pt verbalized understanding and agreeable. Summary/outcome/evaluation of todays goals: MET, pt remained free on injury, harm and falls during today's visit Patient verbalized awareness to watch for and agreeable to immediately report to nurse any shortness of breath, difficulty breathing, rash, face/lip/tongue swelling, hives, chest pain/tightness, back pain, itching, abdominal cramps/pain, dizziness, rapid heartbeat, light-headedness, flushing, nausea or vomiting, or any unusual feeling or pain. Pt educated on increased fall risk and verbalized understanding to utilize working call allred placedwithin reach for nurse assistance getting out of chair Pt was Assisted/Escorted with all ambulation in the clinic, to the bathroom, to the nourishment area, down the hallway No injuries, or falls occurred/ observed or reported Functional status at today's visit: Restricted in physically strenuous activity but ambulatory and able to carry out work on a light orsedentary nature, e.g. light house work, office work The drug name, dose, infusion volume, rate and route of administration, expiration date and time, appearance and physical integrity of the drug and rate set on the pump were verified by this information writer and second sign-in RN Patient was assessed for symptoms or adverse side effects during treatment. Per Dr Francisco, Xgeva was held today r/t reaction, instruction from MD was to remind pt to take her calcium and Vit D as prescribed at home, spoke with pt and her , reminded them as requested. T Also let them know about Xgeva being held and will resume as scheduled. hey verbalized understanding and agreeable. * Maryana Henry RN - 03/06/2024 11:22 AM EST Pre-chemo checklist Chemo/Immune agents ontruzant Consent for chemotherapy drug treatment complete, dated, and signed? Yes - 02/22/2024 Is this a research protocol? no Treatment lab parameters met? Yes Wt Readings from Last 2 Encounters: 03/06/24 56.8 kg (125 lb 4.8 oz) 03/04/24 57.4 kg (126 lb 8 oz) Has treatment weight changed > than 10% No Treatment preauthorized? Yes Temp Readings from Last 1 Encounters: 03/06/24 36.4 C (97.5 F) (Tympanic) Pulse Readings from Last 1 Encounters: 03/06/24 86 BP Readings from Last 1 Encounters: 03/06/24 106/72 SpO2 Readings from Last 1 Encounters: 03/06/24 100% Urine protein N/A Chemo education completed for new therapies? YES Return appointment scheduled Yes Orders released Yes, per provider Dr. Francisco documented in this encounter Plan of Treatment Upcoming Encounters Date Type Department Care Team (Late st Contact Info) Description 04/11/2024 6:15 AM EST Hospital Encounter [facility], [address] [address] 04/11/2024 3:00 PM EST Office Visit Hematology Oncology [address] [phone] Huang Joe MD [facility] [place] [address] 04/12/2024 11:45 AM EST Pharmacy Pharmacy Hematology Oncology [address] [address] [facility] Hem/Onc [address] [place] [id number] 04/24/2024 10:00 AM EDT Telemedicine Psychology [address] [address] Berry Goldberg PsyD [facility] [place] [address] 04/26/2024 2:30 PM EDT Office Visit Palliative Medicine [address] [address] Vicente Henry MD [address] [place] [address] Health Maintenance Due Date Last Done Comments COVID-19 Vaccine (#1) 10/14/1988 Depression Screening 1995 Influenza Vaccine (FLU shot) (#1) 2023 Meningitis B Vaccine (Bexsero/Trumemba) Aged Out No longer eligible b ased on patient's age to complete this topic documented as of this encounter Medical Devices Implanted Type Area Ash Collector Device Identifier Shelf Expiration Date Model / Serial / Lot Valve Program Certal Pls - [id number] Implanted:Qty: 1 on 02/13/2024 by Oswaldo Rehman MD at [place] [facility] Right: Head [employer] [id number] 10/13/2028 [id number] / / [id number] Cath Vent Bactiseal [id number] - [id number] Implanted:Qty: 1 on 02/13/2024 by Oswaldo Rehman MD at OR [facility] Right: Head [employer] [id number] 11/12/2024 82-3072 / / [id number] Valve Program Certal Pls - [id number] Implanted:Qty: 1 on 02/13/2024 by Oswaldo Rehman MD at OR [facility] Right: Head [employer] [id number] 10/13/2028 [id number] / / [id number] documented as of this encounter Procedures Procedure Name Priority Date/Time Associated Diagnosis Comments 25-HYDROXY VITAMIN D Routine 03/06/2024 9:05 AM EST 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) PHOSPHORUS STAT 03/06/2024 9:05 AM EST 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) documented in this encounter Results * PHOSPHORUS (03/06/2024 9:05 AM EST) Phosphorus 2.6 2.5 - 4.8 mg/dL 03/06/2024 1:20 PM EST LABORATORY [facility] Blood Blood sample taken from central line / Unknown Central Line / Unknown 03/06/2024 9:05 AM EST 03/06/2024 9:13 AM EST Che Francisco MD LAB BLOOD ORDERABLES F inal Result Performing Organization Address [facility] Co de Phone Number LABORATORY [facility] [address] [place] [address] * 25-HYDROXY VITAMIN D (03/06/2024 9:05 AM EST) 25-Hydroxy Vitamin D 34 >19 ng/mL 03/06/2024 2:05 PM EST LABORATORY [facility] Blood Blood sample taken from central line / Unknown Central Line / Unknown 03/06/2024 9:05 AM EST 03/06/2024 9:13 AM EST Narrative LABORATORY [facility] - 03/06/2024 2:05 PM EST Deficient: <20 ng/mL Insufficient: 20-29 ng/mL Recommended/Optimum:30-50 ng/mL Vitamin D intoxication is rare. If suspicious of Vitamin D toxicity, evaluation of serum Calcium and PTH is recommended. 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 Encounter for antineoplastic immunotherapy documented in this encounter Administered Medications Inactive Administered Medications - up to 3 most recent administrations Medication Order MAR Action Action Date Dose Rate Site Acetaminophen (Tylenol) tab 650 mg 650 mg, Oral, ONCE, On Mon03/06/24 at 1230, For 1 dose, Maximum of 4 grams (4000 mg) per day.Indications: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),Encounter for antineoplastic immunotherapy Given 03/06/2024 11:47 AM EST 650 mg diphenhydrAMINE (Benadryl) cap 50 mg 50 mg, Oral, ONCE, On Mon03/06/24 at 1230, For 1 doseIndications: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),Encounter for antineoplastic immunotherapy Given 03/06/2024 11:47 AM EST 50 mg diphenhydrAMINE (Benadryl) inj 25 mg 25 mg, IV Push, ONCE PRN Other, Reaction, Starting on Mon03/06/24 at 1332, Until Mon03/06/24 at 1357, For 1 doseIndications: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),Encounter for antineoplastic immunotherapy Given 03/06/2024 1:57 PM EST 25 mg Hydrocortisone Sod Suc (PF) (Solu-Cortef) inj 100 mg 100 mg, IV Push, ONCE PRN Other, Hypersensitivity Reaction, Starting on Mon03/06/24 at 1126, Until Mon03/06/24 at 1541, For 24 hoursIndications: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),Encounter for antineoplastic immunotherapy Given 03/06/2024 12:48 PM EST 100 mg NSS infusion Intravenous, at 50 mL/hr, PRN, Starting on Mon03/06/24 at 1230, Until Mon03/06/24 at 1541, Maintenance lineIndications: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),Encounter for antineoplastic immunotherapy Start Infusion 03/06/2024 11:50 AM EST 50 mL/hr sodium chloride 0.9 % flush central line 10 mL 10 mL, IV Push, PRN Other, IV Flush, Starting on Mon03/06/24 at 1126, Until Mon03/06/24 at 1541, For 24 hours, Do not flush if lock, PICC, or central line not in place; IV infusing or unable to flush.Indications: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),Encounter for antineoplastic immunotherapy Given 03/06/2024 4:20 PM EST 10 mL Given 03/06/2024 11:48 AM EST 10 mL Trastuzumab-dttb (Ontruzant) 453.6 mg in NSS 250 mL infusion 453.6 mg (8 mg/kg 56.7 kg Treatment plan Recorded weight), IV Piggyback, ONCE, 1 dose, On Mon03/06/24 at 1300, Administer over 90 MinutesIndications: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
--- OUTSIDE RECORDS SUMMARY | 2024-04-16 15:05 | External Medical Summary | Summary of Care ---
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) Encounter for antineoplastic immunotherapy Procedures MS INJ ONTRUZANT 10 MG Huang Joe MD [address] [place] [address] Phone: tel: fax: Hematology Oncology [place] [address] [place] [address] Phone: tel: fax: Referral ID Status Reason Start Date Expiration Date V isits Requested Visits Authorized [id number] Authorized 02/29/2024 05/29/2024 999 4 Encounter Details Date Type Department Care Team (Latest Contact Info) Description 03/06/2024 10:30 AM EST Hem/Onc Treatment Hematology Oncology [address] [phone] [place], Chair 18 Hem/Onc [address] [place] [address] [phone] Metastasis from HER2 positive carcinoma of breast [...] included. Nursing Infusion Reaction note Padmaja Burris [id number] 03/06/2024 12:46 PM I was contacted by [...] rate of 170ml/hr. Infusion was stopped from [id number]. Reassessment for resolved symptoms occurred Q 15 mins. Related to persistent chills (pt stated not worsening but getting better), TT to Rayo Dominguez [facility] reporting this and order for [...] on the pump were verified by this automotive service writer and second sign-in RN Patient was [...] Description 04/11/2024 6:15 AM EST Hospital Encounter [facility], [address] [address] 04/11/2024 3:00 PM EST Office Visit Hematology Oncology [address] [phone] Huang Joe MD [facility] [place] [address] 04/12/2024 11:45 AM EST Pharmacy Pharmacy Hematology Oncology [address] [address] [facility] Hem/Onc [address] [place] [phone] 04/24/2024 10:00 AM EDT Telemedicine Psychology [address] [address] Berry Goldberg PsyD [facility] [place] [address] 04/26/2024 2:30 PM EDT Office Visit Palliative Medicine [address] [address] Vicente Henry MD [address] [place] [address] Health Maintenance Due Date Last Done Comments COVID-19 Vaccine (#1) 10/14/1988 Depression Screening 1995 Influenza Vaccine (FLU shot) (#1) 2023 Meningitis B Vaccine (Bexsero/Trumemba) Aged Out No longer eligible b ased on patient's age to complete this topic documented as of this encounter Medical Devices Implanted Type Area Customs Entry Writer Device Identifier Shelf Expiration Date Model / Serial / Lot Valve Program Certal Pls - [id number] Implanted:Qty: 1 on 02/13/2024 by Oswaldo Rehman MD [place] [facility] [place]: Head [employer] [id number] 10/13/2028 [id number] / / [id number] Cath Vent Bactiseal [id number] - [id number] Implanted:Qty: 1 on 02/13/2024 by Oswaldo Rehman MD [place] [facility] Right: Head [employer] [id number] 11/12/2024 [id number] / / [id number] Valve Program Certal Pls - [id number] Implanted:Qty: 1 on 02/13/2024 by Oswaldo Rehman MD at [place] [facility] Right: Head [employer] [id number] 10/13/2028 [id number] / / [id number] documented as of this encounter Procedures Procedure [...] 4.8 mg/dL 03/06/2024 1:20 PM EST LABORATORY [facility] Blood Blood sample taken from central line / Unknown Central Line / Unknown 03/06/2024 9:05 AM EST 03/06/2024 9:13 AM EST Che Francisco MD LAB BLOOD ORDERABLES F inal Result Performing Organization Address [facility] Co de Phone Number LABORATORY [facility] [address] [place] [address] * 25-HYDROXY VITAMIN D (03/06/2024 9:05 AM EST) 25-Hydroxy Vitamin D 34 >19 ng/mL 03/06/2024 2:05 PM EST LABORATORY [facility] Blood Blood sample taken from central line / Unknown Central Line / Unknown 03/06/2024 9:05 AM EST 03/06/2024 9:13 AM EST Narrative LABORATORY [facility] - 03/06/2024 2:05 PM EST Deficient: <20 ng/mL Insufficient: 20-29 ng/mL Recommended/Optimum:30-50 ng/mL Vitamin D intoxication is rare. If suspicious of Vitamin D toxicity, evaluation of serum Calcium and PTH is recommended. Che Francisco MD LAB BLOOD ORDERABLES F inal Result Performing Organization Address [facility] Phone Number LABORATORY [address] [address] documented in this encounter Visit Diagnoses Diagnosis [...] Advance Directives occurred with: Patient Care Teams Steam And Gas Turbine Assembler Relationship Specialty Start Date End Date Gwendolyn Han MD [address] [place] [facility] [place] [address] PCP - General Hematology/Oncology 12/15/23 03/28/24 documented as of this encounter
--- OUTSIDE RECORDS SUMMARY | 2024-04-16 15:05 | External Medical Summary | Summary of Care ---
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) Encounter for antineoplastic immunotherapy Procedures OH INJ ONTRUZANT 10 MG Huang Joe MD [address] [place] [address] Phone: tel: fax: Hematology Oncology [place] [address] [place] [address] Phone: tel: fax: Referral ID Status Reason Start Date Expiration Date V isits Requested Visits Authorized [id number] Authorized 02/29/2024 05/29/2024 999 4 Encounter Details Date Type Department Care Team (Latest Contact Info) Description 03/06/2024 10:30 AM EST Hem/Onc Treatment Hematology Oncology [address] [phone] [place], Chair 18 Hem/Onc [address] [place] [address] [phone] Metastasis from HER2 positive carcinoma of breast [...] included. Nursing Infusion Reaction note Padmaja Burris [id number] 03/06/2024 12:46 PM I was contacted by [...] rate of 170ml/hr. Infusion was stopped from [id number]. Reassessment for resolved symptoms occurred Q 15 mins. Related to persistent chills (pt stated not worsening but getting better), TT to Rayo Dominguez [facility] reporting this and order for [...] on the pump were verified by this scientific writer and second sign-in RN Patient was [...] Description 04/11/2024 6:15 AM EST Hospital Encounter [facility], [address] [address] 04/11/2024 3:00 PM EST Office Visit Hematology Oncology [address] [address] Haung Joe MD [facility] [place] [address] 04/12/2024 11:45 AM EST Pharmacy Pharmacy Hematology Oncology [address] [address] [facility] Hem/Onc [address] [place] [address] 04/24/2024 10:00 AM EDT Telemedicine Psychology [address] [address] Berry Goldberg PsyD [facility] [place] [address] 04/26/2024 2:30 PM EDT Office Visit Palliative Medicine [address] [address] Vicente Henry MD [address] [place] [address] Health Maintenance Due Date Last Done Comments COVID-19 Vaccine (#1) 10/14/1988 Depression Screening 1995 Influenza Vaccine (FLU shot) (#1) 2023 Meningitis B Vaccine (Bexsero/Trumemba) Aged Out No longer eligible b ased on patient's age to complete this topic documented as of this encounter Medical Devices Implanted Type Area Customer Professional Device Identifier Shelf Expiration Date Model / Serial / Lot Valve Program Certal Pls - [id number] Implanted:Qty: 1 on 02/13/2024 by Oswaldo Rehman [place] [facility] [place]: Head [employer] [id number] 10/13/2028 [id number] / / [id number] Cath Vent Bactiseal [id number] - [id number] Implanted:Qty: 1 on 02/13/2024 by Oswaldo Rehman MD [place] [facility] Right: Head [employer] [id number] 11/12/2024 82-3072 / / [id number] Valve Program Certal Pls - [id number] Implanted:Qty: 1 on 02/13/2024 by Oswaldo Rehman MD [place] [facility] Right: Head [employer] [id number] 10/13/2028 [id number] / / [id number] documented as of this encounter Procedures Procedure [...] 4.8 mg/dL 03/06/2024 1:20 PM EST LAB[facility]ATORY [facility] Blood Blood sample taken from central line / Unknown Central Line / Unknown 03/06/2024 9:05 AM EST 03/06/2024 9:13 AM EST Che Francisco MD LAB BLOOD ORDERABLES F inal Result Performing Organization Address [facility] Co de Phone Number LAB[facility]ATORY [facility] [address] [place] [address] * 25-HYDROXY VITAMIN D (03/06/2024 9:05 AM EST) 25-Hydroxy Vitamin D 34 >19 ng/mL 03/06/2024 2:05 PM EST [facility] Blood Blood sample taken from central line / Unknown Central Line / Unknown 03/06/2024 9:05 AM EST 03/06/2024 9:13 AM EST Narrative [facility] - 03/06/2024 2:05 PM EST Deficient: <20 ng/mL Insufficient: 20-29 ng/mL Recommended/Optimum:30-50 ng/mL Vitamin D intoxication is rare. If suspicious of Vitamin D toxicity, evaluation of serum Calcium and PTH is recommended. Che Francisco MD LAB BLOOD ORDERABLES F inal Result Performing Organization Address [facility] Phone Number LABORATORY [address] [address] documented in this encounter Visit Diagnoses Diagnosis [...] Advance Directives occurred with: Patient Care Teams Cold Rolling Supervisor Relationship Specialty Start Date End Date Gwendolyn Han MD [address] [place] [facility] [place] [address] PCP - General Hematology/Oncology 12/15/23 03/28/24 documented as of this encounter
--- OUTSIDE RECORDS SUMMARY | 2024-04-16 15:05 | External Medical Summary ---
Author Name Unknown Address Unknown Organization K01:[facility] - [address] [facility] [facility] [address] Laboratory Report Ordering Provider Test Date Status JAVI FLORENCE 04/11/2024 10:45:54 Final Observation Date Value Abnormality Reference (Units ) Status WBC, Total 04/11/2024 10:45:54 4.40 4.00-10.80 (K/uL) Final RBC 04/11/2024 10:45:54 3.96 3.85-5.15 (M/uL) Final Hemoglobin 04/11/2024 10:45:54 11.9 Below low normal 12.0-15.3 (g/dL) Final HCT 04/11/2024 10:45:54 35.7 Below low normal 36.0-45.2 (%) Final MCV 04/11/2024 10:45:54 90.2 81.5-97.5 (fL) Final MCH 04/11/2024 10:45:54 30.1 27.0-34.0 (pg) Final MCHC 04/11/2024 10:45:54 33.3 32.0-36.0 (g/dL) Final RDW 04/11/2024 10:45:54 14.2 11.5-15.5 (%) Final Platelets 04/11/2024 10:45:54 263 140-400 (K/uL) Final MPV 04/11/2024 10:45:54 9.0 6.6-11.1 (fL) Final Nucleated erythrocytes/100 leukocytes [Ratio] in Blood by Automated count 04/11/2024 10:45:54 0 <=0 (/100 WBCs) Final Performing Location [facility] - [address] [facility] [facility] [address]
--- OUTSIDE RECORDS SUMMARY | 2024-04-16 15:05 | External Medical Summary ---
Author Name Unknown Address Unknown Organization K01:[facility] - [address] [place] [address] Laboratory Report Ordering Provider Test Date Status KIM FLORENCEETIENNE 04/11/2024 10:45:54 Final Observation Date Value Abnormality Reference (Units ) Status Phosphate 04/11/2024 10:45:54 3.9 2.5-4.8 (m g/dL) Final Performing Location [facility] - [address] [place] [address]
--- OUTSIDE RECORDS SUMMARY | 2024-04-16 15:05 | External Medical Summary | Summary of Care ---
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 Please do not use heparin for port flush. documented as of this encounter (statuses as of 04/05/2024) Medications Glucosamine-Chondro itin Max St Oral Capsule Take 1 Capsule by mouth daily at noon. Active Calcium Citrate-Vitamin D 500-10 MG-MCG Oral [...] as of this encounter (statuses as of 04/05/2024) Active Problems Patient Care Coordination No te [...] as of this encounter (statuses as of 04/05/2024) Resolved Problems Problem Noted Date Diagnosed Date Resolved Date Obstructive hydrocephalus 02/04/2024 documented as of this encounter (statuses as of 04/05/2024) Social History Tobacco Use Types Packs/Day Years [...] documented in this encounter Progress Notes * Hai Houston MD - 04/05/2024 3:32 PM EST Images from the original note were not included. PROGRESS NOTE - Palliative Medicine Name: Padmaja Burris Date: 04/05/2024 Padmaja Burris is a 38 year old female seen in follow-up for pain and symptom management in the setting of metastatic breast cancer with brain mets Patient location: HOME. I was in a hospital or clinic location. After connecting through [employer],patient was verified with two unique identifiers. Patient (or authorized legal floor representative) was then informed that this was a Telemedicine visit and being conducted confidentially over secure lines. Methods to assure confidentiality were taken. Patient acknowledged consent and understanding of pr ivacy and security of the Telemedicine visit. The patient agreed to participate. SUBJECTIVE: Patient seen and chart reviewed. Family present: yes The patient stated that she is doing well. She stated that her morning headaches have been controlled over the past couple days and she has been taking Advil alone for her headaches. She stated that her fatigue has been improved since being on [place] Citizen ginseng, but she feels like she still is not back to normal. She stated that otherwise she is doing well. She was on oral chemotherapy and she stated that while she was taking it she felt very nauseous and her chemotherapy has been on hold since then. She stated that the past couple days she has felt very good. She stated that she is going to get a MRI brain next week and then will follow up with Dr. Joe to discuss her future treatment plans. The patient denied fever, flu-like symptoms, chest pain, shortness of breath, nausea, vomiting, diarrhea, constipation.. A 10 point review of systems was performed and is negative, except mentioned in HPI. OBJECTIVE: There were no vitals filed for this visit. Wt Readings from Last 3 Encounters: 03/27/24 59.8 kg (131 lb 12.8 oz) 03/15/24 57.4 kg (126 lb 9.6 oz) 03/06/24 56.8 kg (125 lb 4.8 oz) On exam by visual inspection: Constitutional: Awake, alert, oriented. 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 Right Breast Biopsy Pathology 09/01/22: BREAST, RIGHT, 1 O'CLOCK, CORE BIOPSY ([id number]; 03/29/2021; 11 Slides): Invasive mammary carcinoma with ductal and lobular features, grade 3. Biomarkers: ER: Positive, 90%, 2+, IN: Positive, 10- 20%, 1-2+, HER2 (IHC): Positive, 3+, HER2 (FISH): Positive; HER2:CEN17 = 3.0, average HER2 copy number >/=4.0 (per report), KI-67: 50-60% 09/14/2023 Imaging Mammogram: 09/14/2023 Biopsy 10/04/2023 Imaging PET-CT 01/23/[address] C/A/P [...] mg every 3 months (Breast Cancer/Ovarian Suppression) [id number] Plan Provider: Huang Joe MD Treatment goal: Supportive Line of treatment: [No plan line of treatment] 03/04/2024 - Chemotherapy TUCATINIB-CAPECITABINE (BREAST) [id number] 03/15/2024 - Supportive Therapy SCP - XGEVA [id number] Plan Provider: Huang Joe MD Treatment goal: Supportive Line of treatment: [No plan line of treatment] 03/18/2024 - Supportive Therapy SCP - HYDRATION [id number] Plan Provider: Alicia Murillo MD Treatment goal: Supportive Line of treatment: [No plan line of treatment] 03/27/2024 - Chemotherapy trastuzumab-xxxx 8 mg/kg followed by 6 mg/kg (6 Cycles/3 weeks) [id number] Current Outpatient Medications Medication Sig Dispense Refill Glucosamine-Chondroitin Max St Oral Capsule Take 1 Capsule by mouth daily at noon. (Patient not taking: Reported on 02/29/2024) Calcium Citrate-Vitamin D 500-10 MG-MCG Oral Tablet Chewable Take 1 Tablet by mouth in the morning and 1 Tablet in the evening. (Patient not taking: Reported on 02/29/2024) levETIRAcetam 500 MG Oral Tablet (Keppra) Take [...] by mouth at bedtime. 30 Tablet 0 No current facility-administered medications for this visit. 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 Padmaja, seen in follow-up for pain and symptom management in the setting of Metastatic breast cancer with metastases to brain and spine Obstructive hydrocephalus status post right frontal VPS placement Metastatic breast cancer with known metastases to brain and spine- her chemotherapy is currently onhold Cerebellar mass Brain compression Cerebral edema with mass effect Constipation- likely postop ileus as well as opioid-induced. Zofran can also cause constipation Malignant fatigue- improved Palliative Care Z51.5 Recommendations Provided psychosocial support and empathetic listening Continue Advil as needed Continue [place] ginseng 1000 mg BID in the morning and early afternoon for cancer-related fatigue Recommended staying active and incorporating regular aerobic exercise in to her routine as it is beneficial in malignant fatigue She will have a brain MRI on 04/11/24 and will follow up with Dr. Joe the same day to discuss herfuture treatment She is following with Dr. Goldberg, psycho-oncology, and will be seen next on 04/24/24 Will follow up in 3 weeks via telemedicine I have reviewed the patients controlled substance dispensing history in the Prescription Drug Monitoring Program in compliance with the [facility] regulations before prescribing a controlled substance. Last Tox Screen Results: No results found for this or any previous visit. Recommended calling or utilizing Intentt messaging as needed. We remain available for any questionsor concerns at office number [phone] from 8 am to 4 pm. In case of any urgent need, we have anon-call provider who can be reached by calling the hospital mortar mixer operator at [phone]. documented in this encounter Plan of Treatment Upcoming Encounters Date Type Department Care Team (Late st Contact Info) Description 04/11/2024 6:15 AM EST Hospital Encounter [facility], [address] [address] 04/11/2024 3:00 PM EST Office Visit Hematology Oncology [facility], [address] [address] Huang Joe MD [address] [place] [address] 04/12/2024 11:45 AM EST Pharmacy Pharmacy Hematology Oncology [facility], [address] [address] [facility] Hem/Onc [address] [place] [address] 04/24/2024 10:00 AM EDT Telemedicine Psychology [facility], [address] [address] Berry Goldberg PsyD [facility] [place] [address] 04/26/2024 2:30 PM EDT Office Visit Palliative Medicine [facility], [address] [address] Vicente Henry MD [address] [place] [address] Health Maintenance Due Date Last Done Comments COVID-19 Vaccine (#1) 10/14/1988 Depression Screening 1995 Influenza Vaccine (FLU shot) (#1) 2023 Meningitis B Vaccine (Bexsero/Trumemba) Aged Out No longer eligible b ased on patient's age to complete this topic documented as of this encounter Medical Devices Implanted Type Area Gis Coordinator Device Identifier Shelf Expiration Date Model / Serial / Lot Valve Program Certal Pls - [id number] Implanted:Qty: 1 on 02/13/2024 by Oswaldo Rehman MD at [place] [facility] Right: Head [employer] [id number] 10/13/2028 [id number] / / [id number] Cath Vent Bactiseal [id number] - [id number] Implanted:Qty: 1 on 02/13/2024 by Oswaldo Rehman MD at OR [facility] Right: Head [employer] [id number] 11/12/2024 82-3072 / / [id number] Valve Program Certal Pls - [id number] Implanted:Qty: 1 on 02/13/2024 by Oswaldo Rehman MD at OR [facility] Right: Head [employer] [id number] 10/13/2028 [id number] / / [id number] Marker Site Biopsy - [id number] Implanted:Qty: 1 on 03/19/2024 at [facility] [email or web address] EVIVA 2S-13 / / documented as of this encounter Visit Diagnoses Diagnosis Neoplastic (malignant) related fatigue- Primary 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) Other complicated headache syndrome Palliative care encounter Encounter for palliative care Brain compression (HCC) Compression of brain Cerebral edema (HCC) Cerebral edema Cerebellar mass Other conditions of brain Brain mass Unspecified condition of brain Cerebellar dysmetria Other cerebellar ataxia Stage IV breast cancer in female (HCC) documented in this encounter Advance Directives [...] Advance Directives occurred with: Patient Care Teams Concrete Foreman Relationship Specialty Start Date End Date Gwendolyn Han MD [address] [place] [facility] [place] [address] PCP - General Hematology/Oncology 03/29/24 documented as of this encounter
--- OUTSIDE RECORDS SUMMARY | 2024-04-16 15:05 | External Medical Summary ---
Author Name Unknown Address Unknown Organization K01:[facility] [address] [address] Laboratory Report Ordering Provider Test Date Status NAMANJAVI 04/11/2024 11:24:12 Final Observation Date Value Abnormality Reference (Units ) Status COMMENT 04/11/2024 11:24:12 MO1-MyGenVar Thoracic Neoplasm Gene Panel, NGS between Tumor %: 15 ordered on 04/11/24 LR Final COMMENT 04/11/2024 11:24:12 Testing to be performed in house Final Performing Location [facility] [place] [address] [place] [address]
--- OUTSIDE RECORDS SUMMARY | 2024-04-16 15:05 | External Medical Summary | Summary of Care ---
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) Encounter for antineoplastic immunotherapy Procedures [place] INJ ONTRUZANT 10 MG Huang Joe MD [address] [place] [address] Phone: tel: fax: Hematology Oncology [place] [address] [place] [address] Phone: tel: fax: Referral ID Status Reason Start Date Expiration Date V isits Requested Visits Authorized [id number] Authorized 02/29/2024 05/29/2024 999 4 Encounter Details Date Type Department Care Team (Latest Contact Info) Description 03/06/2024 10:30 AM EST Hem/Onc Treatment Hematology Oncology [address] [phone] [place], Chair 18 Hem/Onc [address] [place] [address] [phone] Metastasis from HER2 positive carcinoma of breast [...] included. Nursing Infusion Reaction note Padmaja Burris [id number] 03/06/2024 12:46 PM I was contacted by [...] rate of 170ml/hr. Infusion was stopped from 0546-0699. Reassessment for resolved symptoms occurred Q 15 mins. Related to persistent chills (pt stated not worsening but getting better), TT to Rayo Dominguez [facility] reporting this and order for Benadryl 25mg [...] on the pump were verified by this race and sports book writer and second sign-in RN Patient was [...] Description 04/11/2024 6:15 AM EST Hospital Encounter [facility], [address] [address] 04/11/2024 3:00 PM EST Office Visit Hematology Oncology [address] [address] Huang Joe MD [facility] [place] [address] 04/12/2024 11:45 AM EST Pharmacy Pharmacy Hematology Oncology [address] [address] [facility] Hem/Onc [address] [place] [address] 04/24/2024 10:00 AM EDT Telemedicine Psychology [address] [address] Berry Goldberg PsyD [facility] [place] [address] 04/26/2024 2:30 PM EDT Office Visit Palliative Medicine [address] [address] Vicente Henry MD [address] [place] [address] Health Maintenance Due Date Last Done Comments COVID-19 Vaccine (#1) 10/14/1988 Depression Screening 1995 Influenza Vaccine (FLU shot) (#1) 2023 Meningitis B Vaccine (Bexsero/Trumemba) Aged Out No longer eligible b ased on patient's age to complete this topic documented as of this encounter Medical Devices Implanted Type Area Sheet Tailer Device Identifier Shelf Expiration Date Model / Serial / Lot Valve Program Certal Pls - [id number] Implanted:Qty: 1 on 02/13/2024 [place] [facility] [place]: Head [employer] [id number] 10/13/2028 [id number] / / [id number] Cath Vent Bactiseal [id number] - [id number] Implanted:Qty: 1 on 02/13/2024 by Oswaldo Rehman [place] [facility] [place]: Head [employer] [id number] 11/12/2024 82-3072 / / [id number] Valve Program Certal Pls - [id number] Implanted:Qty: 1 on 02/13/2024 by Oswaldo Rehman [place] [facility] [place]: Head [employer] [id number] 10/13/2028 [id number] / / [id number] documented as of this encounter Procedures Procedure [...] 4.8 mg/dL 03/06/2024 1:20 PM EST [facility] [place] Blood Blood sample taken from central line / Unknown Central Line / Unknown 03/06/2024 9:05 AM EST 03/06/2024 9:13 AM EST Che Francisco MD LAB BLOOD ORDERABLES F inal Result Performing Organization Address [facility] Co de Phone Number [facility] [place] [address] [place] [address] * 25-HYDROXY VITAMIN D (03/06/2024 9:05 AM EST) 25-Hydroxy Vitamin D 34 >19 ng/mL 03/06/2024 2:05 PM EST [facility] Blood Blood sample taken from central line / Unknown Central Line / Unknown 03/06/2024 9:05 AM EST 03/06/2024 9:13 AM EST Narrative [facility] - 03/06/2024 2:05 PM EST Deficient: <20 ng/mL Insufficient: 20-29 ng/mL Recommended/Optimum:30-50 ng/mL Vitamin D intoxication is rare. If suspicious of Vitamin D toxicity, evaluation of serum Calcium and PTH is recommended. Che Francisco MD LAB BLOOD ORDERABLES F inal Result Performing Organization Address [facility] Phone Number LABORATORY [address] [address] documented in this encounter Visit Diagnoses Diagnosis [...] Advance Directives occurred with: Patient Care Teams Hot Dog Vendor Relationship Specialty Start Date End Date Gwendolyn Han MD [address] [place] [facility] [place] [address] PCP - General Hematology/Oncology 12/15/23 03/28/24 documented as of this encounter
--- OUTSIDE RECORDS SUMMARY | 2024-04-16 15:05 | External Medical Summary | Summary of Care ---
Author Name Unknown Organization [facility] Address [address] [place] [address] Phone [phone] Care Team Providers Care Spare Person Name Role Phone Gwendolyn Han MD Primary Care Provider [phone] Reason for Visit * Reason Onset Date Comments Appointment 04/05/2024 Left message on voicemail for RTC appt on 04/26 with [facility]. Encounter Details Date Type Department Care Team (Late st Contact Info) Description 04/05/2024 Telephone Palliative Medicine [facility] [address] [place] [address] Hai Houston MD [address] [place] [address] Appointment (Left message on voicemail for... Allergies Active Allergy Reactions Criticality Noted Date Comments Heparin Unknown 02/22/2024 Per patient - cannot have Heparin as it contains a pork product. Please do not use heparin for port flush. documented as of this encounter (statuses as of 04/06/2024) Medications Glucosamine-Chondro itin Max St Oral Capsule [...] as of this encounter (statuses as of 04/06/2024) Active Problems Patient Care Coordination No te [...] as of this encounter (statuses as of 04/06/2024) Resolved Problems Problem Noted Date Diagnosed Date Resolved Date Obstructive hydrocephalus 02/04/2024 documented as of this encounter (statuses as of 04/06/2024) Social History Tobacco Use Types Packs/Day Years [...] Shakira Aden RN documented in this encounter Miscellaneous Notes * Telephone Encounter - Vinny Leiva OSA - 04/05/2024 4:42 PM EST Left message on voicemail for RTC appt on 04/26 with [facility]. documented in this encounter Plan of Treatment Upcoming Encounters Date Type Department Care Team (Late st Contact Info) Description 04/11/2024 6:15 AM EST Hospital Encounter MRI, [address] [id number] 04/11/2024 3:00 PM EST Office Visit Hematology Oncology [facility], [address] [phone] Huang Joe MD [facility] [address] [place], [place] [phone] 04/12/2024 11:45 AM EST Pharmacy Pharmacy Hematology Oncology [address] [address] [facility] [place] Hem/Onc [address] [place] [address] 04/24/2024 10:00 AM EDT Telemedicine Psychology [facility], [address] [phone] Berry Goldberg PsyD [address] [place] [address] 04/26/2024 2:30 PM EDT Office Visit Palliative Medicine [facility], [address] [address] Vicente Henry MD [facility] [place] [address] Health Maintenance Due Date Last Done Comments COVID-19 Vaccine (#1) 10/14/1988 Depression Screening 1995 Influenza Vaccine (FLU shot) (#1) 2023 Meningitis B Vaccine (Bexsero/Trumemba) Aged Out No longer eligible b ased on patient's age to complete this topic documented as of this encounter Medical Devices Implanted Type Area Complex Care Nurse Practitioner Device Identifier Shelf Expiration Date Model / Serial / Lot Valve Program Certal Pls - [id number] Implanted:Qty: 1 on 02/13/2024 by Oswaldo Rehman [place] [facility] [place] Head [employer] [id number] 10/13/2028 [id number] / / [id number] Cath Vent Bactiseal 609921 - [id number] Implanted:Qty: 1 on 02/13/2024 by Oswaldo Rehman MD [place] [facility] [place]: Head [employer] [id number] 11/12/2024 82-3072 / / [id number] Valve Program Certal Pls - [id number] Implanted:Qty: 1 on 02/13/2024 by Oswaldo Rehman MD at [place] [facility] [place] Right: Head [employer] [id number] 10/13/2028 [id number] / / [id number] Marker Site Biopsy - [id number] Implanted:Qty: 1 on 03/19/[address] [facility] OUTPAT[facility] RX CLINICS [employer] EVIVA 2S-13 / / documented as of this encounter Advance Directives * Full Code [...] Advance Directives occurred with: Patient Care Teams Spare Person Relationship Specialty Start Date End Date Gwendolyn Han MD [address] [place] [facility] [place] [address] PCP - General Hematology/Oncology 03/29/24 documented as of this encounter
--- OUTSIDE RECORDS SUMMARY | 2024-04-16 15:05 | External Medical Summary ---
Author Name Unknown Address Unknown Organization K01:[facility] [place] [address] [facility] [address] Laboratory Report Ordering Provider Test Date Status JAVI FLORENCE 04/11/2024 10:45:54 Final Observation Date Value Abnormality Reference (Units ) Status BUN 04/11/2024 10:45:54 15 6-20 (mg/dL) Final Creatinine 04/11/2024 10:45:54 0.5 0.5-1.0 (mg/dL) Final Glomerular filtration rate/1.73 sq M.predicted [Volume Rate/Area] in Serum, Plasma or Blood by Creatinine-based formula (CKD-EPI) 04/11/2024 10:45:54 >90 >=60 (mL/min) Final eGFR is calculated based on the CKD-EPI 2020 equation. Sodium 04/11/2024 10:45:54 140 135-146 (m mol/L) Final Potassium 04/11/2024 10:45:54 4.2 3.5-5.1 (m mol/L) Final Cl 04/11/2024 10:45:54 103 98-107 (mm ol/L) Final CO2 04/11/2024 10:45:54 25 22-32 (mmo l/L) Final Anion gap 04/11/2024 10:45:54 12 7-15 (mmol /L) Final Glucose 04/11/2024 10:45:54 110 70-120 (mg /dL) Final Albumin 04/11/2024 10:45:54 4.3 3.8-5.0 (g /dL) Final AST (Aspartate aminotransferase) 04/11/2024 10:45:54 26 10-35 (U/L) Fin al Alk Phos 04/11/2024 10:45:54 55 35-130 (U/ L) Final Bilirubin, Total 04/11/2024 10:45:54 0.2 <=1 .2 (mg/dL) Final Calcium 04/11/2024 10:45:54 9.1 8.4-10.2 ( mg/dL) Final Protein 04/11/2024 10:45:54 6.8 6.0-8.3 (g /dL) Final ALT (Alanine aminotransferase) 04/11/2024 10:45:54 41 Above high normal 10-35 (U/L) Final Performing Location [facility] [place] - [address] [facility] [address]
--- OUTSIDE RECORDS SUMMARY | 2024-04-16 15:05 | External Medical Summary | Summary of Care ---
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) Encounter for antineoplastic immunotherapy Procedures MD INJ ONTRUZANT 10 MG Huang Joe MD [address] [place] [address] Phone: tel: fax: Hematology Oncology [place] [address] [place] [address] Phone: tel: fax: Referral ID Status Reason Start Date Expiration Date V isits Requested Visits Authorized [id number] Authorized 02/29/2024 05/29/2024 999 4 Encounter Details Date Type Department Care Team (Latest Contact Info) Description 03/06/2024 10:30 AM EST Hem/Onc Treatment Hematology Oncology [address] [phone] [place], [address] Hem/Onc [address] [place] [address] [phone] Metastasis from HER2 positive carcinoma of breast [...] included. Nursing Infusion Reaction note Padmaja Burris [id number] 03/06/2024 12:46 PM I was contacted by [...] rate of 170ml/hr. Infusion was stopped from [id number]. Reassessment for resolved symptoms occurred Q 15 mins. Related to persistent chills (pt stated not worsening but getting better), TT to Rayo Dominguez [facility] reporting this and order for Benadryl 25mg IVP ordered and administered per MAR at 1357. Disposition at conclusion of reaction: Pt was reassessed at 1425, pt states her chills completely resolved and Ontruzant was restarted, completed remaining dose titrated up to full rate per Danielle Dominguez PAC direction- see MAR without further reported reactions or issues. Dr Francicso, Dr Joe and Specialty Nurse Sandra Ramires [...] Educated patient on the risk of potential jcakson while using the heat function. Pt verbalized [...] on the pump were verified by this mortgage underwriter and second sign-in RN Patient was assessed [...] Description 04/11/2024 6:15 AM EST Hospital Encounter [facility], [address] [address] 04/11/2024 3:00 PM EST Office Visit Hematology Oncology [address] [phone] Huang Joe MD [facility] [place] [address] 04/12/2024 11:45 AM EST Pharmacy Pharmacy Hematology Oncology [address] [address] [facility] Hem[facility]Onc [address] [place] [address] 04/24/2024 10:00 AM EDT Telemedicine Psychology [address] [address] Berry Goldberg PsyD [facility] [place] [address] 04/26/2024 2:30 PM EDT Office Visit Palliative Medicine [address] [address] Vicente Henry MD [address] [place] [address] Health Maintenance Due Date Last Done Comments COVID-19 Vaccine (#1) 10/14/1988 Depression Screening 1995 Influenza Vaccine (FLU shot) (#1) 2023 Meningitis B Vaccine (Bexsero/Trumemba) Aged Out No longer eligible b ased on patient's age to complete this topic documented as of this encounter Medical Devices Implanted Type Area Soccer Player Device Identifier Shelf Expiration Date Model / Serial / Lot Valve Program Certal Pls - [id number] Implanted:Qty: 1 on 02/13/2024 by Oswaldo Rehman MD [place] [facility] [place] Right: Head [employer] [id number] 10/13/2028 [id number] / / [id number] Cath Vent Bactiseal 029943 - [id number] Implanted:Qty: 1 on 02/13/2024 by Oswaldo Rehman MD at [place] [facility] [place] Right: Head [employer] [id number] 11/12/2024 82-3072 / / [id number] Valve Program Certal Pls - [id number] Implanted:Qty: 1 on 02/13/2024 by Oswaldo Rehman MD at [place] [facility] [place] Right: Head [employer] [id number] 10/13/2028 [id number] / / [id number] documented as of this encounter Procedures Procedure [...] 4.8 mg/dL 03/06/2024 1:20 PM EST LAB[facility]ATORY [facility] [place] Blood Blood sample taken from central line / Unknown Central Line / Unknown 03/06/2024 9:05 AM EST 03/06/2024 9:13 AM EST Che Francisco MD LAB BLOOD ORDERABLES F inal Result Performing Organization Address [facility] Co de Phone Number [facility]ATORY [facility] [place] [address] [place] [address] * 25-HYDROXY VITAMIN D (03/06/2024 9:05 AM EST) 25-Hydroxy Vitamin D 34 >19 ng/mL 03/06/2024 2:05 PM EST LAB[facility]ATORY [facility] [place] Blood Blood sample taken from central line / Unknown Central Line / Unknown 03/06/2024 9:05 AM EST 03/06/2024 9:13 AM EST Narrative LAB[facility]ORY [facility] [place] - 03/06/2024 2:05 PM EST Deficient: <20 ng/mL Insufficient: 20-29 ng/mL Recommended/Optimum:30-50 ng/mL Vitamin D intoxication is rare. If suspicious of Vitamin D toxicity, evaluation of serum Calcium and PTH is recommended. Che Francisco MD LAB BLOOD ORDERABLES F inal Result Performing Organization Address [facility] Phone Number LABORATORY [address] [address] documented in this encounter Visit Diagnoses Diagnosis [...] Advance Directives occurred with: Patient Care Teams Apple Press Operator Relationship Specialty Start Date End Date Gwendolyn Han MD [address] [place] [facility] [place] [address] PCP - General Hematology/Oncology 12/15/23 03/28/24 documented as of this encounter
--- OUTSIDE RECORDS SUMMARY | 2024-04-16 15:05 | External Medical Summary | Summary of Care ---
Author Name Unknown Organization [facility] Address [address] [place] [address] Phone [phone] Care Team Providers Care Elementary Spanish Teacher Name Role Phone Gwendolyn Han MD Primary Care Provider [phone] Reason for Visit * Reason Onset Date Comments Referral 04/03/2024 Encounter Details Date Type Department Care Team ([facility] st Contact Info) Description 04/03/2024 Telephone Hematology Oncology [facility] [address] [place] [address] Services, [facility] [address] [place] [address] Referral Allergies Active Allergy Reactions Criticality Noted Date [...] bedtime. With or without food. 120 Tablet 03/07/2024 2:43 PM EST 5 Active Capecitabine [...] Do not crush or cut.. 84 Tablet 03/05/2024 11:59 AM EST 5 Active Cholecalciferol [...] of Assessment Author Yes 02/05/2024 12:29 AM Shkaira Aden RN documented as of this encounter Mental Status * Because of a physical, mental, or emotional condition, do you have serious difficulty concentrating, remembering, or making decisions? (5 years old or older) Answer Entry Date Author No 02/05/2024 12:29 AM Shakira Aden, ANDRÉS documented in this encounter Miscellaneous Notes * Telephone Encounter - Stephanie Rdz OSA - 04/03/2024 10:07 AM EST Patient spouse calling asking for a referral for [facility] care for their upcoming appointment. documented in this encounter Plan of Treatment Upcoming Encounters Date Type Department Care Team (Late st Contact Info) Description 04/05/2024 3:30 PM EST Telemedicine Palliative Medicine [facility], [address] [phone] Hai Houston MD [address] [place] [phone] 04/11/2024 6:15 AM EST Hospital Encounter MRI, [address] [phone] 04/11/2024 3:00 PM EST Office Visit Hematology Oncology [address] [phone] Huang Joe MD [address] [place] [address] 04/12/2024 11:45 AM EST Pharmacy Pharmacy Hematology Oncology [address] [address] [facility] [place] Hem/Onc [address] [place] [address] 04/24/2024 10:00 AM EDT Telemedicine Psychology [facility], [address] [phone] Berry Goldberg PsyD [address] [place] [address] [phone] Health Maintenance Due Date Last Done Comments COVID-19 Vaccine (#1) 10/14/1988 Depression Screening 1995 Influenza Vaccine (FLU shot) (#1) 2023 Meningitis B Vaccine (Bexsero/Trumemba) Aged Out No longer eligible b ased on patient's age to complete this topic documented as of this encounter Medical Devices Implanted Type Area Teacher Physically Impaired Device Identifier Shelf Expiration Date Model / Serial / Lot Valve Program Certal Pls - [id number] Implanted:Qty: 1 on 02/13/2024 by Oswaldo Rehman MD at [facility] Right: Head [employer] [id number] 10/13/2028 [id number] / / [id number] Cath Vent Bactiseal 007539 - [id number] Implanted:Qty: 1 on 02/13/2024 by Oswaldo Rehman MD at [facility] Right: Head [employer] [id number] 11/12/2024 82-3072 / / [id number] Valve Program Certal Pls - [id number] Implanted:Qty: 1 on 02/13/2024 by Oswaldo Rehman MD at [facility] Right: Head [employer] [id number] 10/13/2028 [id number] / / [id number] Marker Site Biopsy - [id number] Implanted:Qty: 1 on 03/19/2024 at [facility] OUTPATIENT RX CLINICS [employer] EV[employer] 2S-13 / / documented [...] Advance Directives occurred with: Patient Care Teams Elementary Spanish Teacher Relationship Specialty Start Date End Date Gwendolyn Han MD [address] [place] [facility] [place] [address] PCP - General Hematology/Oncology 03/29/24 documented as of this encounter
--- OUTSIDE RECORDS SUMMARY | 2024-04-16 15:06 | External Medical Summary | Summary of Care ---
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 Please do not use heparin for port flush. documented as of this encounter (statuses as of 03/28/2024) Medications Glucosamine-Chondro itin Max St Oral Capsule [...] as of this encounter (statuses as of 03/28/2024) Active Problems Patient Care Coordination No te [...] as of this encounter (statuses as of 03/28/2024) Resolved Problems Problem Noted Date Diagnosed Date Resolved Date Obstructive hydrocephalus 02/04/2024 documented as of this encounter (statuses as of 03/28/2024) Social History Tobacco Use Types Packs/Day Years [...] documented in this encounter Progress Notes * Amanda Altman MD - 03/27/2024 1:30 PM EST Images from the original note were not included. PROGRESS NOTE - Palliative Medicine Name: Padmaja Burris Date: 03/27/2024 Padmaja Burris is a 38 year old female seen in follow-up for post hospital discharge SUBJECTIVE: She has morning headache. She has intermittent headache in the past 2m, which occurred in the past few days, slightly different. The headache started after standing up in the morning, makes it hard to get up and she wanted to go back to bed. Left occipital area, 6/10, last less than 1 hour, pressure-like, "feels like inflammation". Advil helps with the pain, help massage the area, alleviate with the pain. She is taking ibuprofen 3 pills a day for recent 1-2 days, before only taking as needed. She was taking Tylenol in the past few days, 1-2 pills per day, helping with the pain. Deny blurry vision, nausea, vomiting, hearing change, tinnitus, ear discharge, ear pain. No headache othertime during the day. She wants to know how to prevent the pain, can she take some medication beforegoing to bed at night? Plan for now, MRI head, the reassess with Dr. Joe. Slightly change of appetite, nausea mostly resolved, left shoulder tightness, shoulder massage helpwith the pain, and help with headache. "For now only thing annoying is morning headache." She is taking Armenian gentleman 2 pills morning, 2 pills at night. Not taking olanzapine at home. Not taking Decadron home. OBJECTIVE: BP 108/74 Pulse 73 Temp 36.8 C (98.2 F) (Tympanic) Resp 16 Ht 1.676 m (5' 5.98") Wt 59.8 kg (131 lb 12.8 oz) LMP 02/10/2024 SpO2 100% BMI 21.28 kg/m BSA 1.67 m Constitutional: no acute distress Chest: normal respiratory effort CVS: S1S2 Abdomen: soft, bowel sound+ Neuro: alert Psych: normal mood and affect Extremities: warm lower extremity LABS REVIEWED: yes Chemistry Panel: Lab results within last 7 days (see chart for full results) Units 03/27/24 1105 SODIUM mmol/L 139 POTASSIUM mmol/L 4.0 CHLORIDE mmol/L 106 CO2 mmol/L 25 EGFR mL/min >90 BUN mg/dL 14 CREATININE mg/dL 0.5 GLUCOSE mg/dL 84 CALCIUM mg/dL 8.8 ANION GAP mmol/L 8 Complete Blood Count: Lab results within last 7 days (see chart for full results) Units 03/27/24 1105 WBC K/uL 4.10 HGB g/dL 11.2* HCT % 33.9* PLT K/uL 237 MCV fL 89.4 Liver Function Panel: Lab results within last 7 days (see chart for full results) Units 03/27/24 1105 Albumin g/dL 4.1 Protein g/dL 6.6 Bilirubin, Total mg/dL 0.2 AST U/L 22 ALT U/L 19 Alkaline Phosphatase U/L 44 IMAGING REVIEWED: yes US BREAST LIMITED RIGHT, MAMMOGRAM DIAGNOSTIC RANDEE BILATERAL Addendum: Radiologic pathologic concordance addendum will be placed on biopsy report from March 19, 2024. 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 Films Compared PET-CT March 04, 2024; 09/14/2023 RADIOLOGY EXAM - MAMMOGRAPHY (IMAGES ONLY, NO REPORT), 09/14/2023 RADIOLOGY EXAM - MAMMOGRAPHY (IMAGES ONLY, NO REPORT), 08/25/2023 RADIOLOGY EXAM - MAMMOGRAPHY (IMAGES ONLY, NO REPORT), 04/16/2021 US GUIDED BREAST BIOPSY LEFT, 04/16/2021 US GUIDED BREAST ASPIRATION BILATERAL, 04/16/2021 MAMMOGRAM DIAGNOSTIC RANDEE RIGHT, 04/16/2021 MAMMOGRAM DIAGNOSTIC RANDEE BILATERAL, 04/16/2021 US BREAST LIMITED RIGHT, 04/16/2021 US GUIDED BREAST BIOPSY LEFT, 04/02/2021 RADIOLOGY EXAM - MAMMOGRAPHY (IMAGES ONLY, NO REPORT), and 03/29/2021 RADIOLOGY EXAM - MAMMOGRAPHY (IMAGES ONLY, NO REPORT) Findings Left MAMMOGRAM DIAGNOSTIC RANDEE BILATERAL The breasts are heterogeneously dense, which may obscure small masses. There is no evidence of suspicious masses, calcifications, or other abnormal findings in the left breast. Right MAMMOGRAM DIAGNOSTIC RANDEE BILATERAL/US BREAST LIMITED RIGHT The breasts are heterogeneously dense, which may obscure small masses. Ribbon shaped biopsy marker at site of primary breast cancer diagnosis via ultrasound-guided biopsy 2021. Dumbbell shaped biopsy marker at site breast cancer diagnosed via stereotactic biopsy August 25, 2023. Recent PET CT from March 04, 2024 demonstrated an approximally 1 cm area of FDG avidity just lateral to these biopsy markers. Possible correlate on mammogram XCCL view and ML view is a slightly increased group of calcifications with associated subtle increased density on mammogram. There is no sonographic correlate. Impression No mammographic evidence of malignancy within the left breast. Ribbon and dumbbell-shaped biopsy markers within the right breast one o'clock at sites of biopsy proven breast carcinoma. Slightly increased group of calcifications with associated subtle increased density on mammogram is a potential correlate to FDG avid mass seen on recent PET-CT. Same day stereotactic biopsy was offered to Padmaja and her Yonis. They wish to consult with their medical oncologist prior to biopsy to ensure that the biopsy results would impact Padmaja's chemotherapy. Padmaja has an oncology appointment 03/15/2024. We are holding a biopsy slot for Monday03/20/2024 in case she would like us to perform stereotactic biopsy. She was provided with our direct telephone number to confirm/cancel this biopsy appointment after consulting with her oncologist. BI-RADS Category: 6 - Known Biopsy-Proven Malignancy. Recommendation Resume annual screening mammography is recommended for the left breast. Continued appropriate action recommended for known right breast cancer. Consider stereotactic biopsy right breast twelve o'clock calcifications associated mammographic density if pathology results would impact medical management. The above findings and recommendations were discussed with and understood by the patient and her spouse at time of examination completion. Digital breast tomosynthesis was performed. This digital mammogram has been analyzed with the computer aided detection system. Breast tissue can be either dense or not dense. Dense tissue makes it harder to find breast cancer on a mammogram and also raises the risk of developing breast cancer. Your breast tissue is dense. In some people with dense tissue, other imaging tests in addition to a mammogram may help find cancers. Talk to your healthcare provider about breast density, risks for breast cancer, and your individual situation. This examination [facility] [address] [place] [address]. [phone] MAMMOGRAM BREAST NEEDLE BIOPSY CORE RIGHT Addendum: A. 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 Imaging and pathology are concordant. Continued oncologic care is recommended as per oncologist . Malignant pathology results and follow-up oncologic care recommendations were discussed with and understood by the patient by Maryam Blair on March 25, 2024 at 4:03 p.m.. Narrative: Exam MAMMOGRAM BREAST NEEDLE BIOPSY CORE RIGHT History Personal history of malignant neoplasm of breast The patient has no documented relevant family history. Comparison 03/13/2024 US BREAST LIMITED RIGHT, 03/13/2024 MAMMOGRAM DIAGNOSTIC RANDEE BILATERAL, 09/14/2023 RADIOLOGY EXAM - MAMMOGRAPHY (IMAGES ONLY, NO REPORT), 09/14/2023 RADIOLOGY EXAM - MAMMOGRAPHY (IMAGES ONLY, NO REPORT), 08/25/2023 RADIOLOGY EXAM - MAMMOGRAPHY (IMAGES ONLY, NO REPORT), 04/16/2021 MAMMOGRAM DIAGNOSTIC RANDEE RIGHT, 04/16/2021 MAMMOGRAM DIAGNOSTIC RANDEE BILATERAL, 04/16/2021 US BREAST LIMITED RIGHT, 04/16/2021 US GUIDED BREAST BIOPSY LEFT, 04/16/2021 US GUIDED BREAST BIOPSY LEFT, 04/16/2021 US GUIDED BREAST ASPIRATION BILATERAL, 04/02/2021 RADIOLOGY EXAM - MAMMOGRAPHY (IMAGES ONLY, NO REPORT), and 03/29/2021 RADIOLOGY EXAM - MAMMOGRAPHY (IMAGES ONLY, NO REPORT) Technique ALLERGIES: Heparin ANTICOAGULATION: None ANESTHESIA: 1% lidocaine/1% lidocaine with epinephrine SAVINGS TELLER: Dr. Ragland was present for and performed the entire procedure. PROCEDURE: Following a discussion of the risks and benefits of the procedure as well as a discussion of alternatives to this procedure, the patient was given the opportunity to ask questions. Once the patient's questions were answered to her satisfaction, informed consent was signed by the patient. A timeout, with verification of patient name, birthdate and site of procedure was performed by Dr. Ragland in the presence of Abad Sanchez and it was confirmed that procedure matches verbalized consent. All necessary equipment was present prior to the beginning of the procedure. The side of the intended procedure was marked on the skin. Using aseptic technique, local anesthesia superficially with 1% buffered lidocaine and more deeply with 1% buffered lidocaine mixed with epinephrine, and stereotactic guidance, 9-gauge vacuum assisted core biopsy was performed on the right breast. Targeted calcifications were verified in the specimen on the specimen radiograph. Cylinder shaped marker was placed and all devices were removed from the breast. Pressure was held at the biopsy site until hemostasis was obtained and the wound was then dressed. Follow-up unilateral right mammogram demonstrated residual calcifications and marker in good position. The patient was given standard written discharge and post procedural instructions, which were also verbally explained to her and she expressed understanding. The patient was discharged from the department in stable condition. Findings Post procedural unilateral mammogram demonstrates residual calcifications and the marker in good position. The patient tolerated the procedure well and there were no complications. Pathology is pending Impression Stereotactic core biopsy right breast calcifications performed. Current Outpatient Medications Medication Sig Dispense Refill [...] cut.. 84 Tablet 5 Cholecalciferol 50 MCG (1999 UT) Oral Tablet Take 50 mcg by mouth in the morning. 30 Tablet 5 dexAMETHasone 4 MG Oral Tablet (Decadron) Take 1 Tablet by mouth in the morning and 1 Tablet beforebedtime. 30 Tablet 0 OLANZapine 5 MG Oral Tablet (zyPREXA) Take 1 Tablet by mouth at bedtime. 30 Tablet 0 No current facility-administered medications for this visit. ASSESSMENT/PLAN: Padmaja Burris is a 38 year old female seen in follow-up for Metastatic breast cancer with metastases to brain and spine CURRENT TREATMENT: Herceptin + tucatinib + Xeloda (Cycle is 21 Ds)---> start 03/06/2024 Herceptin 8 mg/kg followed by 6 mg/kg D1 Tucatinib 300 mg Po BID on D1 -21 Xeloda 1000 mg/m2 Po BID on D1-14 Xgeva 120 mg Q monthly for bony mets Patient recently hospitalized 02/04/2024-02/21/2024 Pt was admitted for progressive symptoms from hydrocephalus from 4th ventricle mass effect from known metastatic breast ca. Ultimately she underwent PR[employer]ER shunt placement and was discharged home on 02/21/24 without issues. 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 Zofran can also cause constipation Malignant fatigue- uncontrolled Palliative Care Z51.5 Recommendations Introduced palliative medicine and its role in the patient's care Provided psychosocial support and empathetic listening The patient was seen prior to the consultation being canceled. The patient stated that initially she wanted to be transferred to [facility] for further treatment, but after having her VPS placed her symptoms have improved and she would prefer to gohome. She stated that she is still thinking about whether to pursue treatment at [facility]. Discussed with the patient that staying active and regular aerobic exercise is beneficial in cancer-related fatigue. Discussed starting Armenian ginseng 1000 mg twice daily in the morning and early afternoon for cancer-related The patient is a full code. Her would be her surrogate decision maker if she was incapacitated. Copy from Hai Houston MD at 02/16/24 Morning headache Last less than 1 hours, left occipital, pressure-like, inflammation like, Advil and massage help with the pain MR julia ordered We discussed the options, risk and benefits explained including Advil side effects related to heart, GI, kidney 1. Advil combined with Tylenol 2. Trial of Decadron for 2 weeks then taper. Okay thank 3. Combined Decadron with Tylenol 4. Opiate usually less effective for inflammatory leg pain. Patient and prefer Advil combined with Tylenol for now. Advil 200 mg 3 times a day with meals. Tylenol 650 mg 3 times a day, can take in between Advil. We also discussed, they can trial Advil combined with Tylenol for several days, if not controlled, start Decadron combined with Tylenol, avoid using Advil when she is on Decadron. Decadron 4 mg morning, 4 mg 2:00 p.m.. Patient's confirmed they have at least 28 pills of 4 mg Decadron at home. Can call our office if pain still not controlled. Dr. Rangel offered his contact information. Can call our hospital kicking machine operator transferred to palliative department after working hours. Malignant fatigue Improving Continue Armenian ginseng 1000 mg twice daily in the morning and early afternoon Amanda Altman MD Palliative fellow. Cosigned by Ellis Rangel MD at 03/27/2024 5:11 PM EST Associated attestation - Ellis Rangel MD - 03/27/2024 5:11 PM EST I have discussed the patient's management with the medical trainee and agree with the note. Please refer to the documented findings and plan of care. This patient's visit today consisted of an evaluation. I was present and confirmed the findings of the history and exam. Mrs. Burris is not sure about taking dexamethasone because of the risks for side effects. She will try advil + acetaminophen ATC for now and will consider dexamethasone if her symptoms persist. I have educated her about avoiding advil and dexamethasone at the same time. She plans to get a new MRI of the brain and see Dr. Morejon to discuss her options. Our team will be available for support. Ellis Rangel MD documented in this encounter Plan of Treatment Upcoming Encounters Date Type Department Care Team (Late st Contact Info) Description 04/03/2024 11:45 AM EST Pharmacy Pharmacy Hematology Oncology [facility], [address] [address] [place], [facility] Hem/Onc [address] [place] [phone] 04/04/2024 9:00 AM EST Office Visit Hematology Oncology [facility], [address] [phone] Huang Joe MD [address] [place] [address] [phone] 04/04/2024 11:00 AM EST Office Visit Palliative Medicine [facility], [address] [phone] Hai Houston MD [address] [place] [phone] 04/24/2024 10:00 AM EDT Telemedicine Psychology [facility], [address] [phone] Berry Goldberg PsyD [address] [place] [address] [phone] Health Maintenance Due Date Last Done Comments COVID-19 Vaccine (#1) 10/14/1988 Depression Screening 1995 Influenza Vaccine (FLU shot) (#1) 2023 documented as of this encounter Medical Devices Implanted Type Area Neurodiagnostic Technologist Device Identifier Shelf Expiration Date Model / Serial / Lot Valve Program Certal Pls - [id number] Implanted:Qty: 1 on 02/13/2024 by Oswaldo Rehman MD at [place] [facility] Right: Head [employer] [id number] 10/13/2028 [id number] / / [id number] Cath Vent Bactiseal [id number] - [id number] Implanted:Qty: 1 on 02/13/2024 by Oswaldo Rehman MD at OR [facility] Right: Head [employer] [id number] 11/12/2024 82-3072 / / [id number] Valve Program Certal Pls - [id number] Implanted:Qty: 1 on 02/13/2024 by Oswaldo Rehman MD at OR [facility] Right: Head [employer] [id number] 10/13/2028 [id number] / / [id number] Marker Site Biopsy - [id number] Implanted:Qty: 1 on 03/19/2024 at [facility] [employer] EVIVA 2S-13 / / documented as of this encounter Visit Diagnoses Diagnosis 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
--- OUTSIDE RECORDS SUMMARY | 2024-04-16 15:06 | External Medical Summary | Summary of Care ---
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) Procedures WI DENOSUMAB INJECTION Huang Hardy MD [address] [place] [address] Phone: tel: fax: Hematology Oncology [place] [address] [place] [phone] Phone: tel: fax: Referral ID Status Reason Start Date Expiration Date V isits Requested Visits Authorized [id number] Authorized 02/29/2024 05/29/2024 999 4 Encounter Details Date Type Department Care Team (Late st Contact Info) Description 03/15/2024 11:30 AM EST Immunization/I njection Hematology Oncology [place] [address] [place] [address] Nurse, Med [address] [place] [address] 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 Please do not use heparin for port flush. documented as of this encounter (statuses as of 04/04/2024) Medications Glucosamine-Chondro itin Max St Oral Capsule [...] Tablet before bedtime. 30 Tablet 5 Active documented as of this encounter (statuses as of 04/04/2024) Active Problems Patient Care Coordination No te [...] as of this encounter (statuses as of 04/04/2024) Resolved Problems Problem Noted Date Diagnosed Date Resolved Date Obstructive hydrocephalus 02/04/2024 documented as of this encounter (statuses as of 04/04/2024) Social History Tobacco Use Types Packs/Day Years [...] Entry Date Author No 02/05/2024 12:29 AM EST Shakira Franco RN documented in this encounter Plan of Treatment Upcoming Encounters Date Type Department Care Team (Late st Contact Info) Description 04/05/2024 3:30 PM EST Telemedicine Palliative Medicine [facility], [address] [address] Hai Houston MD [address] [place] [phone] 04/11/2024 6:15 AM EST Hospital Encounter MRI, [address] [address] 04/11/2024 3:00 PM EST Office Visit Hematology Oncology [address] [phone] Huang Joe MD [address] [place] [phone] 04/12/2024 11:45 AM EST Pharmacy Pharmacy Hematology Oncology [address] [address] [facility] [place] Hem/Onc [address] [place] [phone] 04/24/2024 10:00 AM EDT Telemedicine Psychology [address] [address] Berry Goldberg PsyD [address] [place] [address] [phone] Scheduled Orders Name Type Priority Associated Diagnoses Orde r Schedule PHOSPHORUS Lab Routine 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) Every Month for 12 Occurrences starting 03/15/2024 until 03/15/2025 COMPREHENSIVE METABOLIC PANEL Lab STAT 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) Every Month for 12 Occurrences starting 03/15/2024 until 03/15/2025 25-HYDROXY VITAMIN D Lab STAT 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) 1 Occurrences starting 03/15/2024 until 03/15/2025 Health Maintenance Due Date Last Done Comments COVID-19 Vaccine (#1) 10/14/1988 Depression Screening 1995 Influenza Vaccine (FLU shot) (#1) 2023 Meningitis B Vaccine (Bexsero/Trumemba) Aged Out No longer eligible b ased on patient's age to complete this topic documented as of this encounter Medical Devices Implanted Type Area Polymer Scientist Device Identifier Shelf Expiration Date Model / Serial / Lot Valve Program Certal Pls - [id number] Implanted:Qty: 1 on 02/13/2024 by Oswaldo Rehman [place] [facility]: Head [employer] [id number] 10/13/2028 [id number] / / [id number] Cath Vent Bactiseal [id number] - [id number] Implanted:Qty: 1 on 02/13/2024 by Oswaldo Rehman MD [place] [facility]: Head [employer] [id number] 11/12/2024 82-3072 / / [id number] Valve Program Certal Pls - [id number] Implanted:Qty: 1 on 02/13/2024 by Oswaldo Rehman MD [place] [facility] [place]: Head [employer] [id number] 10/13/2028 [id number] / / [id number] documented as of this encounter Visit Diagnoses Diagnosis 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 documented in this encounter Administered Medications Inactive Administered Medications - up to 3 most recent administrations Medication Order MAR Action Action Date Dose Rate Site Denosumab (Xgeva) subcut inj 120 mg 120 mg, Subcutaneous, ONCE, On Mon03/15/24 at 1400, For 1 doseIndications: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
--- OUTSIDE RECORDS SUMMARY | 2024-04-16 15:06 | External Medical Summary | Summary of Care ---
Author Name Unknown Organization [facility] Address [address] [place] [address] Phone [phone] Care Team Providers Care Plastic Worker Name Role Phone Gwendolyn Han MD Primary Care Provider [phone] Encounter Details Date Type Department Care Team (Late st Contact Info) Description 03/27/2024 12:00 PM EST Hem/Onc Treatment Hematology Oncology [place] [address] [place], [place] [phone] [place], Chair 15 Hem/Onc [facility] [place] [address] [place], [place] [phone] Arrived Allergies Active Allergy Reactions Criticality Noted Date Comments Heparin Unknown 02/22/2024 Per patient - cannot have Heparin as it contains a pork product. Please do not use heparin for port flush. documented as of this encounter (statuses as of 03/27/2024) Medications Glucosamine-Chondro itin Max St Oral Capsule [...] as of this encounter (statuses as of 03/27/2024) Active Problems Patient Care Coordination No te [...] as of this encounter (statuses as of 03/27/2024) Resolved Problems Problem Noted Date Diagnosed Date Resolved Date Obstructive hydrocephalus 02/04/2024 documented as of this encounter (statuses as of 03/27/2024) Social History Tobacco Use Types Packs/Day Years [...] documented in this encounter Nursing Notes * Ana Boggs RN - 03/27/2024 12:49 PM EST No treatment today per Srini WHEATLEY documented in this encounter Plan of Treatment Upcoming Encounters Date Type Department Care Team (Late st Contact Info) Description 04/03/2024 11:45 AM EST Pharmacy Pharmacy Hematology Oncology [facility], [address] [address] [facility] [place] [facility], [facility] Hem/Onc [address] [place] [address] 04/04/2024 9:00 AM EST Office Visit Hematology Oncology [facility], [address] [phone] Huang Joe MD [address] [place] [address] 04/04/2024 11:00 AM EST Office Visit Palliative Medicine [facility], [address] [phone] Hai Houston MD [address] [place] [address] [phone] 04/24/2024 10:00 AM EDT Telemedicine Psychology [address] [phone] Berry Goldberg PsyD [address] [place] [address] [phone] Health Maintenance Due Date Last Done Comments COVID-19 Vaccine (#1) 10/14/1988 Depression Screening 1995 Influenza Vaccine (FLU shot) (#1) 2023 documented as of this encounter Medical Devices Implanted Type Area Mother Tester Device Identifier Shelf Expiration Date Model / Serial / Lot Valve Program Certal Pls - [id number] Implanted:Qty: 1 on 02/13/2024 by Oswaldo Rehman MD at [facility] Right: Head Involver [id number] 10/13/2028 [id number] / / [id number] Cath Vent Bactiseal [id number] - [id number] Implanted:Qty: 1 on 02/13/2024 by Oswaldo Rehman MD at [facility] Right: Head [employer]ER [id number] 11/12/2024 [id number] / / [id number] Valve Program Certal Pls - [id number] Implanted:Qty: 1 on 02/13/2024 by Oswaldo Rehman MD at [place] [facility] Right: Head [employer] [id number] 10/13/2028 [id number] / / [id number] Marker Site Biopsy - [id number] Implanted:Qty: 1 on 03/19/2024 at [facility] [employer] TRIMARK EVIVA 2S-13 / / documented [...] Advance Directives occurred with: Patient Care Teams Plastic Worker Relationship Specialty Start Date End Date Gwendolyn Han MD [address] [place] [facility] [place] [address] PCP - General Hematology/Oncology 12/15/23 documented as of this encounter
--- OUTSIDE RECORDS SUMMARY | 2024-04-16 15:06 | External Medical Summary | Summary of Care ---
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 GRANT ADMINISTRATOR shunt Procedures MRI BRAIN W WO CONTRAST Lynda Mendez CRNP [address] [place] [address] Phone: tel: fax: Referral ID Status Reason Start Date Expiration Date V isits Requested Visits Authorized [id number] Pending Review 03/27/2024 999 [id number] Reason for Visit * Reason Comments Follow Up Encounter Details Date Type Department Care Team (Late st Contact Info) Description 03/27/2024 11:30 AM EST Office Visit Hematology Oncology [facility] [address] [place] [address] Lynda Mendez CRNP [address] [place] [address] 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 Problem Noted Date Diagnosed Date CINV (chemotherapy-induced [...] Sign Reading Time Taken Comments Blood Pressure 108/74 03/27/2024 11:17 AM EST Pulse 73 03/27/2024 11:17 AM EST Temperature 36.8 C (98.2 F) 03/27/2024 1 1:17 AM EST Respiratory Rate 16 03/27/2024 11:1 7 AM EST Oxygen Saturation 100% 03/27/2024 11: 17 AM EST RA Inhaled Oxygen Concentration - - Weight 59.8 kg (131 lb 12.8 oz) 025 11:17 AM EST Height 167.6 cm (5' 5.98") 03/27/2024 1 1:17 AM EST Body Mass Index 21.28 03/27/2024 11:17 AM EST documented in this encounter Functional [...] documented in this encounter Progress Notes * Lynda Mendez CRNP - 03/27/2024 11:30 AM EST Images from the original note were not included. Hematology/Oncology Outpatient Clinic note [place] [address] Name: Padmaja Burris Date: 03/27/2024 CHIEF COMPLAINT: Padmaja Burris is a 38 year old female patient of Dr. Joe here today for f/u visit. See bottom ofnote for impression/plan. HISTORY OF PRESENT ILLNESS Oncology history from patient chart, confirmed with patient. Copied/pasted from the note of/my previous note and updated as appropriate. HEMATOLOGY/ONCOLOGY DIAGNOSIS: STAGE: De Sanjeev metastatic triple positive breast cancer, ER strongly + 90%, UT + 10- 20%, and HER2 3+, with multiple widespread bone metastases, and recently brain metastasis s/p GRANT ADMINISTRATOR Shunt. 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 Right Breast Biopsy Pathology 09/01/22: BREAST, RIGHT, 1 O'CLOCK, CORE BIOPSY ([id number]; 03/29/2021; 11 Slides): Invasive mammary carcinoma with ductal and lobular features, grade 3. Biomarkers: ER: Positive, 90%, 2+, UT: Positive, 10- 20%, 1-2+, HER2 (IHC): Positive, [...] mg every 3 months (Breast Cancer/Ovarian Suppression) [id number] Plan Provider: Huang Joe MD Treatment goal: Supportive Line of treatment: [No plan line of treatment] 03/04/2024 - Chemotherapy TUCATINIB-CAPECITABINE (BREAST) [id number] 03/15/2024 - Supportive Therapy SCP - XGEVA [id number] Plan Provider: Huang Joe MD Treatment goal: Supportive Line of treatment: [No plan line of treatment] 03/18/2024 - Supportive Therapy SCP - HYDRATION [id number] Plan Provider: Alicia Murillo MD Treatment goal: Supportive Line of treatment: [No plan line of treatment] 03/27/2024 - Chemotherapy trastuzumab-xxxx 8 mg/kg followed by 6 mg/kg (6 Cycles/3 weeks) [id number] INTERVAL HISTORY: Padmaja Burris is a 38 year old female with a history as outlined above. Currently here today for a f/u visit. Patient here for follow up visit prior to D1C2 of herceptin. She was last seen in clinic on 03/15/2024 for an acute visit with Dr. Murillo. At that time, the patient had complaint of nausea, and appetite reduction secondary to pull burden. It was discussed at the visit that nausea predated the start of chemotherapy use. At that visit, it was decided to start olanzipine at that time. She states that recently in the mornings she has been having headaches. Takes a "pain killer" to help with her pain. Taking advil for her pain. Headaches began over the past few days. Pain is near left posterior occipital region. Ongoing for the past week or slightly longer than a week. Denies blurred vision, double vision, nausea, vomiting. Nausea has improved. She also states that she has had a "reaction" to her oral chemotherapy pills. Stopped tucatinib and capecitabine on about 20 days ago. She also states that she had vomiting following her trastuzumab use. At her last visit, she waned to speak with her neurosurgeon to discuss oncology care with onc team. Wondering what other treatment options are available because of poor tolerability to capecitabine and tucatinib. I discussed with the patient that neurosurgery may not have the most insight to alternative chemotherapy regimens. "I need him to be here and confirm what is in my head is cancer." Patient requested at last visit that neurosurgery be contacted. Patient would like to speak with neurosurgery about her care. I reviewed with dr. Murillo, there has been no response from the patient's neurosurgeon. Sofy Review of patient's allergies indicates: Allergen Reactions Heparin Unknown Per patient - cannot have Heparin as it contains a pork product. Please do not use heparin for portflush. Current Outpatient Medications Medication Sig Dispense Refill Glucosamine-Chondroitin Max St Oral Capsule Take 1 Capsule by mouth daily at noon. (Patient not taking: Reported on 03/15/2024) Calcium Citrate-Vitamin D 500-10 MG-MCG Oral Tablet Chewable Take 1 Tablet by mouth in the morning and 1 Tablet in the evening. (Patient not taking: Reported on 03/15/2024) levETIRAcetam 500 MG Oral Tablet (Keppra) Take [...] No current facility-administered medications for this visit. Family History Problem Relation Name Age of Onset Cancer Uncle (Maternal) ? spleen cancer Breast Cancer No significant family history REVIEW OF SYSTEMS: Please refer to interval history, otherwise ROS within normal limits. ECOG: Performance Status 0 = 100% Normal Activity LABS: Results for orders placed or performed in visit on 03/19/24 ER/UT/HER2 Result Value Ref Range ER/UT/HER2 Interpretation Right breast, case [id number], block A2: Estrogen Receptor (ER) protein expression is STRONGLY POSITIVE 100% nuclear positivity 3+ average intensity score (range 0 to 3+) Progesterone Receptor (UT) protein expression is MODERATELY POSITIVE 40% nuclear positivity 2+ average intensity score (range 0 to 3+) HER2 oncoprotein expression is POSITIVE ( 3+ average membranous intensity) Hormone Receptor Reference Ranges (nuclear staining) ER/UT Negative <1% nuclear staining ER Low Positive 1 - 10% nuclear staining ER Positive >10% nuclear staining UT Positive >1% nuclear staining HER2 Reference Ranges (membrane staining intensity): 0 Negative (no staining or faint incomplete membrane staining in <=10% of invasive tumor cells) 1+ Negative (faint incomplete membrane staining in >10% of the invasive tumor cells) 2+ weak to moderate complete membrane staining observed in >10% of tumor cells 3+ Positive (intense, complete circumferential cell membrane staining in >10% of tumor cells) Adequacy: This specimen meets CAP/ASCO guidelines for fixation (6-72 hours in 10% neutral buffered formalin) and <1 hour cold ischemic time and is appropriate for evaluation. Controls: Assay internal and multilevel external control immunoreactivity is appropriate. Method: Evaluation of receptor protein expression has been performed by immunohistochemical pathologic evaluation by visual analysis on paraffin embedded invasive tumor on block A2 using FDA-cleared antibodies and protocols with estrogen receptor protein El Veintiseis SP1 antibody, progesterone receptor p rotein 1E2 antibody and FDA approved HER2 oncoprotein El Veintiseis 4B5 antibody. References: 1. Estrogen and Progesterone Receptor Testing in Breast Cancer: [place] Society of Clinical Oncology/College of [place] Pathologists Guideline Update. Arch Pathol Lab Med. 2019Feb 25. 2. Belle MCMULLEN, Yuli NAIRH, Vicky KH, at al. Human Epidermal Growth Factor Receptor 2 Testing in Breast Cancer: [place] Society of Clinical Oncology/College of [place] Pathologists Clinical Practice Guideline Focused Update. J Clin Oncol. 2018 Aug 22;36(20):1460-7295. . Sign Out Location Pathologist sign out performed at [facility] ([facility] [address] [place] [address]. SURGICAL PATHOLOGY Result Value Ref Range Final Diagnosis A. 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 -- See comment. Comment: Histologically this lesion has some features of lobular carcinoma, but the immunophenotypeis definitively ductal. Prognostic markers will be reported separately. Order Comments 12:00 Right Breast Calcifications in Patient with known Metastatic Breast Cancer Gross Description A. Breast, Right. Received in formalin with a container labeled with "Padmaja Burris", "[id number]", "1985" and " right breast with calcifications". Received are multiple cores of castle-yellow fibroadipose tissue ranging from 0.3 cm to 2.2 cm in length, each approximately 0.5 cm in diameter. The specimen is entirely submitted in cassettes A1-A3. Collection/ischemic time: time 1145, date 03/19/2024, time in formalin:time not provided, date 03/19/2024. Gross By: MF Microscopic Description Microscopic examination shows small nests of infiltrating epithelial cells without luminal formation with nuclei are 3-4 larger than normal duct epithelial nuclei and containing prominent nucleoli. Mitotic figures are evident (5- 10/10hpf). The presence of lymphovascular invasion is indeterminate. Positive immunohistochemical staining of this invasive tumor with e-cadherin confirms the ductal differentiation. Immunohistochemical assays with differential basal cytokeratin 34?E12 and luminal cytokeratins 7/18 demonstrate a neoplastic monoclonal growth pattern. The largest dimension of invasive tumor in the specimen is 3 mm. Antibody Result in this case Application in this case BNC5 Positive Detects atypia and malignancy E-cadherin Positive Marker of ductal differentiation p120 Membranous staining Membranous staining in ductal tumors, cytoplasmic staining in lobular tumors TRPS-1 Positive Sensitive and specific breast marker Sign Out Location Pathologist sign out performed at [facility] ([facility] [address] [place] [address]. Photographic images and diagrams represent esposito findings in this case; they are not intended to replace a complete review of the final diagnostic report. The following statement applies to Flow Cytometry, Histology, In situ Hybridization Assays and Molecular Genetics. This test was developed and performed at [facility] and its performance characteristics determined by [employer]. It has not been cleared or approved by the U.S. Food and Drug Administration. The FDA has determined that such clearance or approval is not necessary. This test is used for clinical purposes. It should not be regarded as investigationalor for research. Special stains, including histochemical stains, and studies using immunologic and MARIAMA methodology (where applicable) are performed with appropriate positive and negative control reactions. OBJECTIVE: No data recorded Filed Vitals: 03/27/24 1117 BP: 108/74 Pulse: 73 Resp: 16 Temp: 36.8 C (98.2 F) TempSrc: Tympanic SpO2: 100% Weight: 59.8 kg (131 lb 12.8 oz) Height: 1.676 m (5' 5.98") Wt Readings from Last 5 Encounters: 03/27/24 59.8 kg (131 lb 12.8 oz) 03/15/24 57.4 kg (126 lb 9.6 oz) 03/06/24 56.8 kg (125 lb 4.8 oz) 03/04/24 57.4 kg (126 lb 8 oz) 02/22/24 56.7 kg (125 lb) PHYSICAL EXAM: Physical Exam Vitals and nursing note reviewed. Constitutional: Appearance: Normal appearance. HENT: Head: Normocephalic and atraumatic. Right Ear: External ear normal. Left Ear: External ear normal. Nose: No congestion or rhinorrhea. Eyes: Extraocular Movements: Extraocular movements intact. Conjunctiva/sclera: Conjunctivae normal. Pupils: Pupils are equal, round, and reactive to light. Cardiovascular: Rate and Rhythm: Normal rate and regular rhythm. Pulses: Normal pulses. Heart sounds: Normal heart sounds. Pulmonary: Effort: Pulmonary effort is normal. Breath sounds: Normal breath sounds. Abdominal: General: Abdomen is flat. Bowel sounds are normal. Palpations: Abdomen is soft. Musculoskeletal: Cervical back: Normal range of motion and neck supple. No rigidity or tenderness. Lymphadenopathy: Cervical: No cervical adenopathy. Skin: General: Skin is warm and dry. Capillary Refill: Capillary refill takes less than 2 seconds. Neurological: General: No focal deficit present. Mental Status: She is alert and oriented to person, place, and time. Mental status is at baseline. GCS: GCS eye subscore is 4. GCS verbal subscore is 5. GCS motor subscore is 6. Cranial Nerves: Cranial nerves 2-12 are intact. Sensory: Sensation is intact. Motor: Motor function is intact. Coordination: Coordination is intact. Heel to Gray Test normal. Gait: Gait is intact. Psychiatric: Mood and Affect: Mood normal. Behavior: Behavior normal. Thought Content: Thought content normal. Judgment: Judgment normal. 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 - With new onset headaches in the past week and considering the patient has not been taking oral chemotherapy as prescribed, I am recommending the patient get repeat brain MRI to evaluate for worsening metastatic disease. - On examination, there were no ovious focal deficits. However, heel to gray was demonstrated and explained to patient and was subsequently done incorrectly twice prior to correctly performing heel to gray. Unsure if this is new from baseline as I am just meeting patient for the first time today. - No other obvious red flag neurologic changes on exam were demonstrated. - Recent biopsy results were reviewed with patient and . - Considering results, I encouraged the patient to proceed with trastuzumab treatment today. She declined. I educated the patient on risks associated with withholding treatment. She agrees and is okay to withhold treatment today. - Patient opting to withhold treatment until treatment plan is discussed with Dr. Joe. - Er precautions discussed. Any worsening neurologic deficits including worsening headache, blurredvision, double vision, balance issues, uncontrolled nausea, vomiting, seizures, syncope patient should present to ER. Check-out note: - Return with Dr. Joe as scheduled. - Please schedule brain MRI as soon as possible. - Patient to go see radiation onc now. - Will return for 2p for palliative. Continuity of care required: patient with a single high risk disease/chronic medical conditions which requires follow up in clinic less than 12 mos to address medical issues, potential complications,health care needs which are related to patient's diagnoses listed above. MEDICAL DECISION MAKING: High complexity MDM: Problem: High Data: Moderate Risk: High DIONI Pardo Hematology Oncology [address] [phone] documented in this encounter Nursing Notes * Artem Chan MED ASSIST - 03/27/2024 11:27 AM EST Patient was instructed to not get up on the exam table/exam chair until directed and assisted by their provider; patient is to remain seated in the chair/ wheelchair/ exam table/ exam chair for fall prevention and safety reasons. Patient is aware to have assistance to step down off exam table/exam chair with personnel. Patient voiced full comprehension of instructions. Room 8 documented in this encounter Plan of Treatment Upcoming Encounters Date Type Department Care Team (Late st Contact Info) Description 04/03/2024 11:45 AM EST Pharmacy Pharmacy Hematology Oncology [address] [address] [facility] Hem/Onc [address] [place] [address] 04/04/2024 9:00 AM EST Office Visit Hematology Oncology [address] [phone] Huang Joe MD [facility] [place] [address] 04/04/2024 11:00 AM EST Office Visit Palliative Medicine [address] [phone] Hai Houston MD [facility] [address] [place], [place] [phone] 04/24/2024 10:00 AM EDT Telemedicine Psychology [address] [phone] Berry Goldberg PsyD [facility] [address] [place], [place] [phone] Pending Results Name Type Priority Associated Diagnoses Date /Time CA 15-3 Lab Routine 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) Brain compression (HCC) 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 GRANT ADMINISTRATOR shunt 03/27/2024 12:37 PM EST Scheduled Orders Name Type Priority Associated Diagnoses Orde r Schedule CA 15-3 Lab Routine 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) Brain compression (HCC) 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 GRANT ADMINISTRATOR shunt Expected: 03/27/2024, Expires: 03/27/2025 MRI BRAIN W WO CONTRAST Medical Imaging Routine 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) Brain compression (HCC) 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 GRANT ADMINISTRATOR shunt Expected: 03/27/2024, Expires: 04/24/2025 Health Maintenance Due Date Last Done Comments COVID-19 Vaccine (#1) 10/14/1988 Depression Screening 1995 Influenza Vaccine (FLU shot) (#1) 2023 documented as of this encounter Medical Devices Implanted Type Area Roofing Supervisor Device Identifier Shelf Expiration Date Model / Serial / Lot Valve Program Certal Pls - [id number] Implanted:Qty: 1 on 02/13/2024 by Oswaldo Rehman MD at [place] [facility] Right: Head [employer] JENNIFER [id number] 10/13/2028 [id number] / / [id number] Cath Vent Bactiseal [id number] - [id number] Implanted:Qty: 1 on 02/13/2024 by Oswaldo Rehman MD at [place] [facility] Right: Head [employer] JENNIFER [id number] 11/12/2024 [id number] / / [id number] Valve Program Certal Pls - [id number] Implanted:Qty: 1 on 02/13/2024 by Oswaldo Rehman MD at [place] [facility] Right: Head [employer] JENNIFER [id number] 10/13/2028 [id number] / / [id number] Marker Site Biopsy - [id number] Implanted:Qty: 1 on 03/19/2024 at [facility] [employer] TRIMARK EVIVA 2S-13 / / documented as of this encounter Visit Diagnoses Diagnosis 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
--- OUTSIDE RECORDS SUMMARY | 2024-04-16 15:06 | External Medical Summary | Summary of Care ---
Author Name Unknown Organization [facility] Address [address] [place] [address] Phone [phone] Care Team Providers Care Addictions Counselor Assistant Name Role Phone Gwendolyn Han MD Primary Care Provider [phone] Reason for Visit * Reason Comments Medication Management Encounter Details Date Type Department Care Team (Late st Contact Info) Description 04/03/2024 11:45 AM [facility] Pharmacy Pharmacy Hematology Oncology [facility] [address], [place] [phone] [facility] [place] [facility] Hem/Onc [address] [place], [place] [phone] 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 Please do not use heparin for port flush. documented as of this encounter (statuses as of 04/03/2024) Medications Glucosamine-Chondro itin Max St Oral Capsule [...] as of this encounter (statuses as of 04/03/2024) Active Problems Patient Care Coordination No te [...] as of this encounter (statuses as of 04/03/2024) Resolved Problems Problem Noted Date Diagnosed Date Resolved Date Obstructive hydrocephalus 02/04/2024 documented as of this encounter (statuses as of 04/03/2024) Social History Tobacco Use Types Packs/Day Years [...] documented in this encounter Progress Notes * Cindy Kathleen, [facility] - 04/03/2024 11:47 AM EST MEDICATION THERAPY MANAGEMENT CAPECITABINE + TUCATINIB TREATMENT PROGRESS NOTE Padmaja Burris [id number] Patient Phone Numbers Preferred Lab: Specialty Pharmacy: Communication: Chart review Treatment: Medication: Capecitabine (Xeloda) Indication/Staging/Diagnosis Code: Breast w/ mets, HER2+ C79.9, C50.919, Z17.31 Dose Basis: 1000 mg/m2 Dose: 1500 mg Administration: within 30 minutes of a meal Medication: Tucatinib (Tukysa) Dose: 300 mg PO BID Administration: +/- food Start Date: TBD Primary Insurance Account Specialist/Oncologist: Dr. Joe Additional Therapy: Leuprolide Trastuzumab Denosumab [...] withhold treatment until discussed with Dr. Joe Assessment of compliance: N/a Assessment of adverse effects attributed to drug therapy: N/a Dose adjustment needed based on lab or adverse drug reaction? N/a Follow up: OV 04/11, MTM 04/12 Cindy Kathleen, GonzálezD, BCOP Ambulatory Clinical Pharmacist | [facility]otherapy [facility] 04/03/2024, 11:50 AM Monitoring Parameters: Estimated CrCl Serum creatinine: 0.5 mg/dL 03/27/24 1105 Estimated creatinine clearance: 140 mL/min Hepatitis panel [...] monitoring - Medication Requires monitoring Pharmacist Intervention(s): Care coordination and Medication held Magnitude of Intervention: Monitoring with direction (Level 1) Second Item Second Item Category: Oral Chemotherapy Tucatinib Problem/Rationale: Safety: Needs additional monitoring - Medication Requires monitoring Pharmacist Intervention(s): Care coordination and Medication held Magnitude of Intervention: Monitoring with direction (Level 1) documented in this encounter Plan of Treatment Upcoming Encounters Date Type Department Care Team (Late st Contact Info) Description 04/05/2024 3:30 PM EST Telemedicine Palliative Medicine [address] [address] Hai Houston MD [facility] [place] [address] 04/11/2024 6:15 AM EST Hospital Encounter MRI, [address] [phone] 04/11/2024 3:00 PM EST Office Visit Hematology Oncology [facility], [address] [phone] Huang Joe MD [facility] [place] [address] 04/12/2024 11:45 AM EST Pharmacy Pharmacy Hematology Oncology [facility], [place] [address] [place] [address] [facility] [place] Clinic Hem/Onc [facility] [place] [address] 04/24/2024 10:00 AM EDT Telemedicine Psychology [place] [address] [place] [address] Berry Goldberg PsyD [address] [place] [address] Health Maintenance Due Date Last Done Comments COVID-19 Vaccine (#1) 10/14/1988 Depression Screening 1995 Influenza Vaccine (FLU shot) (#1) 2023 Meningitis B Vaccine (Bexsero/Trumemba) Aged Out No longer eligible b ased on patient's age to complete this topic documented as of this encounter Medical Devices Implanted Type Area Retail Pharmacy Manager Device Identifier Shelf Expiration Date Model / Serial / Lot Valve Program Certal Pls - [id number] Implanted:Qty: 1 on 02/13/2024 by Oswaldo Rehman MD at [facility] Right: Head [employer] V[employer]ge JENNIFER [id number] 10/13/2028 [id number] / / [id number] Cath Vent Bactiseal [id number] - [id number] Implanted:Qty: 1 on 02/13/2024 by Oswaldo Rehman MD at [facility] Right: Head [employer]s JENNIFER [id number] 11/12/2024 82-3072 / / [id number] Valve Program Certal Pls - [id number] Implanted:Qty: 1 on 02/13/2024 by Oswaldo Rehman MD at [facility] Right: Head [employer] ESKY[employer] JENNIFER [id number] 10/13/2028 [id number] / / [id number] Marker Site Biopsy - [id number] Implanted:Qty: 1 on 03/19/2024 at [facility] [employer] TRIMARK EVIVA 2S-13 / / documented [...] Advance Directives occurred with: Patient Care Teams Addictions Counselor Assistant Relationship Specialty Start Date End Date Gwendolyn Han MD [address] [facility] [place] [address] PCP - General Hematology/Oncology 03/29/24 documented as of this encounter
--- OUTSIDE RECORDS SUMMARY | 2024-04-16 15:06 | External Medical Summary | Summary of Care ---
Author Name Unknown Organization [facility] Address [address] [place] [address] Phone [phone] Care Team Providers Care Ortho Assistant Name Role Phone Gwendolyn Han MD Primary Care Provider [phone] Encounter Details Date Type Department Care Team (Late st Contact Info) Description 03/27/2024 10:45 AM EST Nurse Only Hematology Oncology [facility] [address], [place] [phone] [place], Nurse Lab Hem/Onc [address] [place] [address] Arrived Allergies Active Allergy Reactions [...] 11:45 AM EST Pharmacy Pharmacy Hematology Oncology [address] [address] [facility] [place] [facility] Hem/Onc [address] [place] [address] 04/04/2024 9:00 AM EST Office Visit Hematology Oncology [facility], [address] [address] Huang Joe MD [facility] [place] [address] 04/04/2024 11:00 AM EST Office Visit Palliative Medicine [facility], [address] [phone] Hai Houston MD [facility] [address] [place], [place] [phone] 04/24/2024 10:00 AM EDT Telemedicine Psychology [facility], [address] [address] Berry Goldberg PsyD 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 MANAGER OF INTERNAL shunt 03/27/2024 12:37 PM EST Health Maintenance Due Date Last Done Comments COVID-19 Vaccine (#1) 10/14/1988 Depression Screening 1995 Influenza Vaccine (FLU shot) (#1) 2023 documented as of this encounter Medical Devices Implanted Type Area Plaster Machine Operator Device Identifier Shelf Expiration Date Model / Serial / Lot Valve Program Certal Pls - [id number] Implanted:Qty: 1 on 02/13/2024 by Oswaldo Rehman MD at [facility] Right: Head [employer] [id number] 10/13/2028 [id number] / / [id number] Cath Vent Bactiseal 208971 - [id number] Implanted:Qty: 1 on 02/13/2024 by Oswaldo Rehman MD at [facility] Right: Head [employer]formerly [employer]) [id number] 11/12/2024 82-3072 / / [id number] Valve Program Certal Pls - [id number] Implanted:Qty: 1 on 02/13/2024 by Oswaldo Rehman MD at [facility] Right: Head [employer] (formerly [employer]) [id number] 10/13/2028 [id number] / / [id number] Marker Site Biopsy - [id number] Implanted:Qty: 1 on 03/19/2024 at [facility] Compute[employer]LL EVIVA 2S-13 / / documented as of this encounter Procedures Procedure Name Priority Date/Time Associated Diagnosis Comments DIFFERENTIAL, AUTOMATED STAT 03/27/2024 11:05 AM EST 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) Stage IV breast cancer in female (HCC) COMPREHENSIVE METABOLIC PANEL STAT 03/27/2024 11:05 AM EST 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 Neutrophils % 61.1 40.0 - 75.0 % 03/27/2024 11:[address] [facility] Lymphocytes % 28.5 18.0 - 42.0 % 03/27/2024 11:[address] [facility] Monocytes % 8.0 1.0 - 11.0 % 03/27/2024 11:[address] [facility] Eosinophils % 1.7 0.0 - 6.0 % 03/27/2024 11:[address] [facility] Basophils % 0.5 0.0 - 2.0 % 03/27/2024 11:[address] [facility] Immature Granulocytes % 0.2 0.0 - 2.0 % 03/27/2024 11:[address] [facility] Absolute Neutrophils 2.50 1.80 - 7.70 K/uL 03/27/2024 11:[address] [facility] Absolute Lymphocytes 1.17 1.00 - 4.80 K/ul 03/27/2024 11:[address] [facility] Absolute Monocytes 0.33 0.00 - 1.10 K/uL 03/27/2024 11:[address] [facility] Absolute Eosinophils 0.07 0.00 - 0.70 K/uL 03/27/2024 11:[address] [facility] Absolute Basophils 0.02 0.00 - 0.20 K/uL 03/27/2024 11:[address] [facility] Absolute Immature Granulocytes 0.01 0.00 - 0.20 K/uL 03/27/2024 11:[address] [facility] Blood Blood sample taken from central line / Unknown Central Line / Unknown 03/27/2024 11:05 AM EST 03/27/2024 11:12 AM EST us Huang Joe MD LAB BLOOD ORDERABLE S Final Result [facility] [address] [place] [address] * (ABNORMAL) CBC (03/27/2024 11:05 AM EST) WBC 4.10 4.00 - 10.80 K/uL 03/27/2024 11:[address] [facility] RBC 3.79 3.85 - 5.15 M/uL 03/27/2024 11:[address] [facility] HGB 11.2(L) 12.0 - 15.3 g/dL 03/27/2024 11:[address] [facility] HCT 33.9(L) 36.0 - 45.2 % 03/27/2024 11:[address] [facility] MCV 89.4 81.5 - 97.5 fL 03/27/2024 11:[address] [facility] MCH 29.6 27.0 - 34.0 pg 03/27/2024 11:[address] [facility] MCHC 33.0 32.0 - 36.0 g/dL 03/27/2024 11:[address] [facility] RDW 13.8 11.5 - 15.5 % 03/27/2024 11:[address] [facility] PLT 237 140 - 400 K/uL 03/27/2024 11:[address] [facility] MPV 9.0 6.6 - 11.1 fL 03/27/2024 11:[address] [facility] nRBCs 0 <=0 /100 WBCs 03/27/2024 11:[address] [facility] Blood Blood sample taken from central line / Unknown Central Line / Unknown 03/27/2024 11:05 AM EST 03/27/2024 11:12 AM EST us Huang Joe MD LAB BLOOD ORDERABLE S Final Result [facility] [address] [place] [address] * COMPREHENSIVE METABOLIC PANEL (03/27/2024 11:05 AM EST) BUN 14 6 - 20 mg/dL 03/27/2024 12:23 PM EST [facility] CREATININE 0.5 0.5 - 1.0 mg/dL 03/27/2024 12:23 PM EST LABORATORY GM EGFR >90 >=60 mL/min 03/27/2024 12:23 PM EST [facility] Comment:eGFR is calculated b ased on the CKD-EPI 2020 equation. SODIUM 139 135 - 146 mmol/L 03/27/2024 12:23 PM EST [facility] POTASSIUM 4.0 3.5 - 5.1 mmol/L 03/27/2024 12:23 PM EST [facility] CHLORIDE 106 98 - 107 mmol/L 03/27/2024 12:23 PM EST [facility] CO2 25 22 - 32 mmol/L 03/27/2024 12:23 PM EST [facility] ANION GAP 8 7 - 15 mmol/L 03/27/2024 12:23 PM EST [facility] GLUCOSE 84 70 - 120 mg/dL 03/27/2024 12:23 PM EST [facility] Albumin 4.1 3.8 - 5.0 g/dL 03/27/2024 12:23 PM EST [facility] AST 22 10 - 35 U/L 03/27/2024 12:23 PM EST [facility] Alkaline Phosphatase 44 35 - 130 U/L 03/27/2024 12:23 PM EST [facility] Bilirubin, Total 0.2 <=1.2 mg/dL 03/27/2024 12:23 PM EST [facility] CALCIUM 8.8 8.4 - 10.2 mg/dL 03/27/2024 12:23 PM EST [facility] Protein 6.6 6.0 - 8.3 g/dL 03/27/2024 12:23 PM EST [facility] ALT 19 10 - 35 U/L 03/27/2024 12:23 PM EST [facility] Blood Blood sample taken from central line / Unknown Central Line / Unknown 03/27/2024 11:05 AM EST 03/27/2024 11:12 AM EST us Huang Joe MD LAB BLOOD ORDERABLE S Final Result [facility] [address] [place] [address] documented in this encounter Visit Diagnoses Diagnosis 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
--- OUTSIDE RECORDS SUMMARY | 2024-04-16 15:06 | External Medical Summary | Summary of Care ---
Author Name Unknown Organization [facility] Address [address] [place] [address] Phone [phone] Care Team Providers Care Excellence Manager Name Role Phone Gwendolyn Han MD Primary Care Provider [phone] Encounter Details Date Type Department Care Team (Late st Contact Info) Description 03/27/2024 10:45 AM EST Nurse Only Hematology Oncology [facility] [address] [place], [place] [phone] [place], Nurse Lab Hem/Onc [address] [place] [address] Arrived Allergies Active Allergy Reactions [...] 11:45 AM EST Pharmacy Pharmacy Hematology Oncology [address] [address] [facility] [place], [facility] Clinic Hem/Onc [address] [place] [address] 04/04/2024 9:00 AM EST Office Visit Hematology Oncology [facility], [address] [phone] Huang Joe MD [facility] [place] [address] 04/04/2024 11:00 AM EST Office Visit Palliative Medicine [facility], [address] [phone] Hai Houston MD [facility] [address] [place], [place] [phone] 04/24/2024 10:00 AM EDT Telemedicine Psychology [facility], [address] [address] Berry Goldberg PsyD 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 VENEER GLUE JOINTER FEEDBACK shunt 03/27/2024 12:37 PM EST Health Maintenance Due Date Last Done Comments COVID-19 Vaccine (#1) 10/14/1988 Depression Screening 1995 Influenza Vaccine (FLU shot) (#1) 2023 documented as of this encounter Medical Devices Implanted Type Area Flight Test Data Acquisition Technician Device Identifier Shelf Expiration Date Model / Serial / Lot Valve Program Certal Pls - [id number] Implanted:Qty: 1 on 02/13/2024 by Oswaldo Rehman MD at [place] [facility] Right: Head [employer] [id number] 10/13/2028 [id number] / / [id number] Cath Vent Bactiseal 253679 - [id number] Implanted:Qty: 1 on 02/13/2024 by Oswaldo Rehman MD at [facility] Right: Head [employer] [id number] 11/12/2024 82-3072 / / [id number] Valve Program Certal Pls - [id number] Implanted:Qty: 1 on 02/13/2024 by Oswaldo Rehman MD at [facility] Right: Head [employer] [id number] 10/13/2028 [id number] / / [id number] Marker Site Biopsy - [id number] Implanted:Qty: 1 on 03/19/2024 at [facility] [email or web address] EVIVA 2S-13 / / documented as of [...] 10.80 K/uL 03/27/2024 11:14 AM EST LABORATORY [facility] Neutrophils % 61.1 40.0 - 75.0 % 03/27/2024 11:14 AM EST LABORATORY [facility] Lymphocytes % 28.5 18.0 - 42.0 % 03/27/2024 11:14 AM EST LABORATORY [facility] Monocytes % 8.0 1.0 - 11.0 % 03/27/2024 11:14 AM EST LABORATORY [facility] Eosinophils % 1.7 0.0 - 6.0 % 03/27/2024 11:14 AM EST LABORATORY [facility] Basophils % 0.5 0.0 - 2.0 % 03/27/2024 11:14 AM EST LABORATORY [facility] Immature Granulocytes % 0.2 0.0 - 2.0 % 03/27/2024 11:14 AM EST LABORATORY [facility] Absolute Neutrophils 2.50 1.80 - 7.70 K/uL 03/27/2024 11:14 AM EST LABORATORY [facility] Absolute Lymphocytes 1.17 1.00 - 4.80 K/ul 03/27/2024 11:14 AM EST LABORATORY [facility] Absolute Monocytes 0.33 0.00 - 1.10 K/uL 03/27/2024 11:14 AM EST LABORATORY [facility] Absolute Eosinophils 0.07 0.00 - 0.70 K/uL 03/27/2024 11:14 AM EST LABORATORY [facility] Absolute Basophils 0.02 0.00 - 0.20 K/uL 03/27/2024 11:14 AM EST LABORATORY [facility] Absolute Immature Granulocytes 0.01 0.00 - 0.20 K/uL 03/27/2024 11:14 AM EST LABORATORY [facility] Blood Blood sample taken from central line / Unknown Central Line / Unknown 03/27/2024 11:05 AM EST 03/27/2024 11:12 AM EST us Huang Joe MD LAB BLOOD ORDERABLE S Final Result LABORATORY [facility] [address] [place] [address] * (ABNORMAL) CBC (03/27/2024 11:05 AM EST) WBC 4.10 4.00 - 10.80 K/uL 03/27/2024 11:14 AM EST LABORATORY [facility] RBC 3.79 3.85 - 5.15 M/uL 03/27/2024 11:14 AM EST LABORATORY [facility] HGB 11.2(L) 12.0 - 15.3 g/dL 03/27/2024 11:14 AM EST LABORATORY [facility] HCT 33.9(L) 36.0 - 45.2 % 03/27/2024 11:14 AM EST LABORATORY [facility] MCV 89.4 81.5 - 97.5 fL 03/27/2024 11:14 AM EST LABORATORY [facility] MCH 29.6 27.0 - 34.0 pg 03/27/2024 11:14 AM EST LABORATORY [facility] MCHC 33.0 32.0 - 36.0 g/dL 03/27/2024 11:14 AM EST LABORATORY [facility] RDW 13.8 11.5 - 15.5 % 03/27/2024 11:14 AM EST LABORATORY [facility] PLT 237 140 - 400 K/uL 03/27/2024 11:14 AM EST LABORATORY [facility] MPV 9.0 6.6 - 11.1 fL 03/27/2024 11:14 AM EST LABORATORY [facility] nRBCs 0 <=0 /100 WBCs 03/27/2024 11:14 AM EST LABORATORY [facility] Blood Blood sample taken from central line / Unknown Central Line / Unknown 03/27/2024 11:05 AM EST 03/27/2024 11:12 AM EST us Huang Joe MD LAB BLOOD ORDERABLE S Final Result LABORATORY [facility] [address] [place] [address] * COMPREHENSIVE METABOLIC PANEL (03/27/2024 [...] ORDERABLE S Final Result [facility] [address] [place] [address] documented in this encounter Visit Diagnoses Diagnosis 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
--- OUTSIDE RECORDS SUMMARY | 2024-04-16 15:06 | External Medical Summary | Summary of Care ---
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) Che Francisco MD [address] [place] [address] Phone: tel: fax: Referral ID Status Reason Start Date Expiration Date Visits Requested Visits Authorized [id number] Pending Review Specialty Services Required 03/06/[phone] Encounter Details Date Type Department Care Team (Late st Contact Info) Description 03/27/2024 3:00 PM EST Office Visit Radiation Oncology, [facility] [address] [place], [place] [phone] Torres Gaona MD [address] [place] [address] 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 RADIATION ONCOLOGY FOLLOW-UP NOTE [facility] Padmaja Burris [id number] 38 year old Padmaja Burris was seen in follow-up in Radiation Oncology at [facility] on 03/27/2024. 38 year old female with G3 inflammatory ductal carcinoma of the right breast, ER+, IA+, Her2+, Stage IV at diagnosis (bone), diagnosed via biopsy 03/29/2021 (right breast) and 04/02/2021 (right axilla)and 04/20/2021 (bone) and 03/19/2024 (right breast) S/p 8 Gy x 1 to the lumbar spine and sacrum 04/13/2021 ([facility]) S/p trastuzumab/pertuzumab 05/04 S/p taxotere/trastuzumab/pertuzumab 05/04 - 08/04 S/p trastuzumab/pertuzumab 09/03 - 06/05; 02/04 - 12/06 S/p tamoxifen 06/06 - 12/06 S/p tucatinib, trastuzumab-dttb, capecitabine 03/09 - present INTERVAL HISTORY: 01/24/2024 Last seen by Rad Onc (Sky/Erica): plan as of 01/25/2024 was whole brain radiotherapy at [facility]; she ultimately restarted systemic therapy 01/24/2024 MRI C/T/L Spine: 1. No evidence of enhancing intradural/leptomeningeal metastasis [...] 4. Thoracolumbar scoliosis and minor degenerative changes. 02/06/2024 MRI Cspine: 1. Relatively stable intracranial metastatic disease as [...] canal stenosis or significant neural foraminal narrowing. 02/06/2024 MRI brain: 1. Relatively stable intracranial metastatic disease as [...] canal stenosis or significant neural foraminal narrowing. 02/12/2024 CT H/B: Redemonstrated known multiple intracranial metastases involving the supratentorial and infratentorial brain, with the largest lesion centered in the left cerebellum associated withsignificant perilesional edema, local mass effect and similar narrowing of the 4th ventricle. Compared to 01/23/2024, there is slight increased caliber of the 3rd ventricle, detailed above. However, stable mild supratentorial ventriculomegaly when compared to MRI brain on 02/06/2024. 02/13/2024 Right sided ventriculo-peritoneal shunt placed (Ferrone) 02/13/2024 CT H/B: Status post PUBLIC HEALTH TE[employer]ER shunt placement. Stable ventricular size. 03/04/2024 PET/CT: 1. Local recurrence of breast cancer: New 1 cm metabolically-active nodule in the upper inner rightbreast adjacent to biopsy clips. 2. No metabolically-active regional lymph node or distant metastasis. 03/13/2024 Diagnostic Mammogram with ultrasound Left MAMMOGRAM DIAGNOSTIC RANDEE BILATERAL The breasts are heterogeneously dense, which may obscure small masses. There is no evidence of suspicious masses, calcifications, or other abnormal findings in the left breast. Right MAMMOGRAM DIAGNOSTIC RANDEE BILATERAL/US BREAST LIMITED RIGHT The breasts are heterogeneously dense, which may obscure small masses. Ribbon shaped biopsy marker at site of primary breast cancer diagnosis via ultrasound- guided biopsy 2021. Dumbbell shaped biopsymarker at site breast cancer diagnosed via stereotactic biopsy August 25, [address]. [address] from March 04, 2024 demonstrated an approximally 1 cm area of FDG avidity just lateral to these biopsy markers. Possible correlate on mammogram XCCL view and ML view is a slightly increased group of calcifications with associated subtle increased density on mammogram. There is no sonographic correlate. 03/19/2024 Mammogram guided biopsy: A. 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 03/27/2024 Oncology (Vanessa): patient did not want to continue systemic therapy; new morning AMEZQUITA's ledto ordering MRI brain (not scheduled yet) She wishes to discuss breast radiotherapy. She has no symptoms from the primary breast tumor currently. Medications were reviewed and updated. ZUBROD PERFORMANCE SCALE: 0 fully active, able to carry out all pre-disease activities without restriction PHYSICAL EXAMINATION: LMP 02/10/2024 Wt Readings from Last 4 Encounters: 03/27/24 59.8 kg (131 lb 12.8 oz) 03/15/24 57.4 kg (126 lb 9.6 oz) 03/06/24 56.8 kg (125 lb 4.8 oz) 03/04/24 57.4 kg (126 lb 8 oz) General: alert and oriented, no apparent distress, cognition normal, and speech normal RECENT LABS: Results for orders placed or performed in visit on 03/27/24 CBC Result Value Ref Range WBC 4.10 [...] 11.1 fL nRBCs 0 <=0 /100 WBCs Results for orders placed or performed in visit on 03/27/24 DIFFERENTIAL, AUTOMATED Result Value Ref Range WBC [...] Immature Granulocytes 0.01 0.00 - 0.20 K/uL CBC Result Value Ref Range WBC 4.10 [...] 11.1 fL nRBCs 0 <=0 /100 WBCs Results for orders placed or performed in [...] g/dL ALT 19 10 - 35 U/L ASSESSMENT: The patient wishes to have breast directed treatment. I would strongly urge her to have brain directed therapy including radiotherapy, and only revisit the primary tumor if that region of potentiallylethal disease is addressed and (at least) stable. The rationale, the risks, the benefits, the alternatives, and the personnel of radiotherapy were explained to the patient. The role of other modalities, including surgery, systemic therapy, medical management, and observation, were also discussed. The natural history of the patient's disease was explained. All questions were answered and the patient expressed understanding of the relevant issues. The patient is undecided. PLAN: MRI brain (potentially she can be re-discussed in TB after this, although it's unclear if the patient is willing to undergo either brain directed surgery or radiotherapy) The patient will follow-up in Radiation Oncology as needed. Follow-up with other physicians is as already scheduled. 03/27/2024 Pal Med (Juan Carlos) 04/04/2024 Oncology (Tatyana) 04/24/2024 Psych (Yusuf) The patient will contact us in the meantime with questions or concerns. Thank you for having asked us to take part in this patient's care. I spent 45 minutes on this patients care on the date of service. Torres Gaona MD 03/27/2024 documented in this encounter Plan of Treatment Upcoming Encounters Date Type Department Care Team (Late st Contact Info) Description 04/03/2024 11:45 AM EST Pharmacy Pharmacy Hematology Oncology [facility], [address] [address] [facility] Hem/[place]c [facility] [place] [address] 04/04/2024 9:00 AM EST Office Visit Hematology Oncology [address] [phone] Huang Joe MD [facility] [place] [address] 04/04/2024 11:00 AM EST Office Visit Palliative Medicine [address] [address] Hai Houston MD [facility] [address] [place], [place] [phone] 04/24/2024 10:00 AM EDT Telemedicine Psychology [address] [phone] Berry Goldberg PsyD [address] [place] [phone] Scheduled Referrals Name Type Priority Associated Diagnoses Orde r Schedule RADIATION/ONCOLOGY REFERRAL OP Referral Within 3 days (urgent) 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) Ordered: 03/08/2024 Health Maintenance Due Date Last Done Comments COVID-19 Vaccine (#1) 10/14/1988 Depression Screening 1995 Influenza Vaccine (FLU shot) (#1) 2023 documented as of this encounter Medical Devices Implanted Type Area Passenger Booking Clerk Device Identifier Shelf Expiration Date Model / Serial / Lot Valve Program Certal Pls - [id number] Implanted:Qty: 1 on 02/13/2024 by Oswaldo Rehman MD at [facility] Right: Head [employer] JENNIFER [id number] 10/13/2028 [id number] / / [id number] Cath Vent Bactiseal [id number] - [id number] Implanted:Qty: 1 on 02/13/2024 by Oswaldo Rehman MD at [place] [facility] Right: Head [employer] JENNIFER [id number] 11/12/2024 82-3072 / / [id number] Valve Program Certal Pls - [id number] Implanted:Qty: 1 on 02/13/2024 by Oswaldo Rehman MD at [facility] Right: Head [employer] JENNIFER [id number] 10/13/2028 [id number] / / [id number] Marker Site Biopsy - [id number] Implanted:Qty: 1 on 03/19/2024 at [facility] [employer] TRIMARK EVIVA 2S-13 / / documented as of this encounter Visit Diagnoses Diagnosis 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
--- OUTSIDE RECORDS SUMMARY | 2024-04-16 15:06 | External Medical Summary | Summary of Care ---
Author Name Unknown Organization [facility] Address [address] [place] [address] Phone [phone] Care Team Providers Care Water Well Driller Name Role Phone Gwendolyn Han MD Primary Care Provider [phone] Reason for Visit * Reason Onset Date Comments Follow Up 03/28/2024 Encounter Details Date Type Department Care Team (Late st Contact Info) Description 03/28/2024 Telephone Hematology Oncology [facility] [address] [place] [address] Huang Joe MD [address] [place] [address] Follow Up Allergies Active Allergy Reactions Criticality Noted Date [...] encounter Miscellaneous Notes * Telephone Encounter - Alicia Ramires RN - 03/28/2024 11:34 AM EST Called to follow up with pt - headache better today than yesterday. Taking pain meds for it. No nausea this time. Is agreeable to get the MRI brain scheduled. Aware to go to ER if symptoms worse. Transferred to schedule MRI . documented in this encounter Plan of Treatment Upcoming Encounters Date Type Department Care Team (Late st Contact Info) Description 04/03/2024 11:45 AM EST Pharmacy Pharmacy Hematology Oncology [facility] [place], [address] [address] [facility] [place], [facility] Hem/Onc [address] [place] [address] 04/04/2024 9:00 AM EST Office Visit Hematology Oncology [facility] [place], [address] [phone] Huang Joe MD [address] [place] [address] 04/04/2024 11:00 AM EST Office Visit Palliative Medicine [facility] [place], [address] [address] Hai Houston MD [address] [place] [address] 04/24/2024 10:00 AM EDT Telemedicine Psychology [facility] [place], [address] [address] Berry Goldberg PsyD [address] [place] [address] Health Maintenance Due Date Last Done Comments COVID-19 Vaccine (#1) 10/14/1988 Depression Screening 1995 Influenza Vaccine (FLU shot) (#1) 2023 documented as of this encounter Medical Devices Implanted Type Area Manager Branch Device Identifier Shelf Expiration Date Model / Serial / Lot Valve Program Certal Pls - [id number] Implanted:Qty: 1 on 02/13/2024 by Oswaldo Rehman MD at [facility] Right: Head [employer] JENNIFER [id number] 10/13/2028 [id number] / / [id number] Cath Vent Bactiseal [id number] - [id number] Implanted:Qty: 1 on 02/13/2024 by Oswaldo Rehman MD at [facility] Right: Head [employer] JENNIFER [id number] 11/12/2024 82-3072 / / [id number] Valve Program Certal Pls - [id number] Implanted:Qty: 1 on 02/13/2024 by Oswaldo Rehman MD at [facility] Right: Head [employer] JENNIFER [id number] 10/13/2028 [id number] / / [id number] Marker Site Biopsy - [id number] Implanted:Qty: 1 on 03/19/2024 at [facility] [employer] TRIMARK EVIVA 2S-13 / / documented [...] Advance Directives occurred with: Patient Care Teams Water Well Driller Relationship Specialty Start Date End Date Gwendolyn Han MD [address] [place] [facility] [place] [address] PCP - General Hematology/Oncology 12/15/23 documented as of this encounter
--- OUTSIDE RECORDS SUMMARY | 2024-04-16 15:06 | External Medical Summary | Summary of Care ---
Author Name Unknown Organization [facility] Address [address] [place] [address] Phone [phone] Care Team Providers Care Coverer Name Role Phone Gwendolyn Han MD Primary Care Provider Reason for Visit * Reason Onset Date Comments Order Request 03/28/2024 MRI SEAFOOD TEAM MEMBER Shunt Tri age Encounter Details Date Type Department Care Team (Late st Contact Info) Description 03/28/2024 Telephone Access Center, [place] [address] [facility] *DO NOT REMOVE THIS DEPARTMENT* [place] [phone] Services, Scheduling [address] [place] [address] Order Request (MRI SEAFOOD TEAM MEMBER Shunt Triage) Allergies Active Allergy Reactions Criticality Noted Date Comments Heparin Unknown 02/22/2024 Per patient - cannot have Heparin as it contains a pork product. Please do not use heparin for port flush. documented as of this encounter (statuses as of 04/02/2024) Medications Glucosamine-Chondro itin Max St Oral Capsule [...] as of this encounter (statuses as of 04/02/2024) Active Problems Patient Care Coordination No te [...] as of this encounter (statuses as of 04/02/2024) Resolved Problems Problem Noted Date Diagnosed Date Resolved Date Obstructive hydrocephalus 02/04/2024 documented as of this encounter (statuses as of 04/02/2024) Social History Tobacco Use Types Packs/Day Years [...] encounter Miscellaneous Notes * Telephone Encounter - Carla Hernandez, BRIDGER - 03/28/2024 2:40 PM EST Good afternoon, I'm just sending a message on behalf of the patient to have her MRI of the Brain W/WO Contrast triaged due to her shunt. Would we be able to triage? Thank you, Radiology Scheduling documented in this encounter Plan of Treatment Upcoming Encounters Date Type Department Care Team (Late st Contact Info) Description 04/03/2024 11:45 AM EST Pharmacy Pharmacy Hematology Oncology [facility], [address] [address] [facility] [place] Hem/Onc [address] [place] [address] 04/04/2024 9:00 AM EST Office Visit Hematology Oncology [facility], [address] [phone] Huang Joe MD [facility] [address] [place], [place] [phone] 04/04/2024 11:00 AM EST Office Visit Palliative Medicine [facility], [address] [phone] Hai Houston MD [address] [place] [phone] 04/11/2024 6:15 AM EST Hospital Encounter MRI, [address] [id number] 04/24/2024 10:00 AM EDT Telemedicine Psychology [facility], [address] [phone] Berry Goldberg PsyD [address] [place] [address] [phone] Health Maintenance Due Date Last Done Comments COVID-19 Vaccine (#1) 10/14/1988 Depression Screening 1995 Influenza Vaccine (FLU shot) (#1) 2023 Meningitis B Vaccine (Bexsero/Trumemba) Aged Out No longer eligible b ased on patient's age to complete this topic documented as of this encounter Medical Devices Implanted Type Area Teenage Program Director Device Identifier Shelf Expiration Date Model / Serial / Lot Valve Program Certal Pls - [id number] Implanted:Qty: 1 on 02/13/2024 by Oswaldo Rehman MD at [facility] Right: Head [employer] JENNIFER [id number] 10/13/2028 [id number] / / [id number] Cath Vent Bactiseal 611297 - [id number] Implanted:Qty: 1 on 02/13/2024 by Oswaldo Rehman MD at [facility] Right: Head [employer] JENNIFER [id number] 11/12/2024 82-3072 / / [id number] Valve Program Certal Pls - [id number] Implanted:Qty: 1 on 02/13/2024 by Oswaldo Rehman MD [place] [facility] Right: Head [employer] JENNIFER [id number] 10/13/2028 [id number] / / [id number] Marker Site Biopsy - [id number] Implanted:Qty: 1 on 03/19/[address] [facility] [employer] EVIVA 2S-13 / / documented as of [...] Advance Directives occurred with: Patient Care Teams Coverer Relationship Specialty Start Date End Date Gwendolyn Han MD [address] [place] [facility] [place] [address] PCP - General Hematology/Oncology 03/29/24 documented as of this encounter
--- OUTSIDE RECORDS SUMMARY | 2024-04-16 15:07 | External Medical Summary ---
Author Name Unknown Address Unknown Organization K01:[facility] [place] [address] [facility] [address] Laboratory Report Ordering Provider Test Date Status JAVI FLORENCE 03/27/2024 11:05:53 Final Observation Date Value Abnormality Reference (Units ) Status BUN 03/27/2024 11:05:53 14 6-20 (mg/dL) Final Creatinine 03/27/2024 11:05:53 0.5 0.5-1.0 (mg/dL) Final Glomerular filtration rate/1.73 sq M.predicted [Volume Rate/Area] in Serum, Plasma or Blood by Creatinine-based formula (CKD-EPI) 03/27/2024 11:05:53 >90 >=60 (mL/min) Final eGFR is calculated based on the CKD-EPI 2020 equation. Sodium 03/27/2024 11:05:53 139 135-146 (m mol/L) Final Potassium 03/27/2024 11:05:53 4.0 3.5-5.1 (m mol/L) Final Cl 03/27/2024 11:05:53 106 98-107 (mm ol/L) Final CO2 03/27/2024 11:05:53 25 22-32 (mmo l/L) Final Anion gap 03/27/2024 11:05:53 8 7-15 (mmol /L) Final Glucose 03/27/2024 11:05:53 84 70-120 (mg /dL) Final Albumin 03/27/2024 11:05:53 4.1 3.8-5.0 (g /dL) Final AST (Aspartate aminotransferase) 03/27/2024 11:05:53 22 10-35 (U/L) Final Alk Phos 03/27/2024 11:05:53 44 35-130 (U/ L) Final Bilirubin, Total 03/27/2024 11:05:53 0.2 <=1 .2 (mg/dL) Final Calcium 03/27/2024 11:05:53 8.8 8.4-10.2 ( mg/dL) Final Protein 03/27/2024 11:05:53 6.6 6.0-8.3 (g /dL) Final ALT (Alanine aminotransferase) 03/27/2024 11:05:53 19 10-35 (U/L) Final Performing Location [facility] [place] [address] [facility] [address]
--- OUTSIDE RECORDS SUMMARY | 2024-04-16 15:07 | External Medical Summary | Summary of Care ---
Author Name Unknown Organization [facility] Address [address] [place] [address] Phone [phone] Care Team Providers Care Composite Assembler Name Role Phone Gwendolyn Han MD Primary Care Provider [phone] Reason for Visit * Reason Onset Date Comments Test Results 03/25/2024 Encounter Details Date Type Department Care Team ([facility] st Contact Info) Description 03/25/2024 Telephone Radiology [facility] [address] [place] [address] Maryam Blair RN Test Results Allergies Active Allergy Reactions Criticality Noted Date Comments Heparin Unknown 02/22/2024 Per patient - cannot have Heparin as it contains a pork product. Please do not use heparin for port flush. documented as of this encounter (statuses as of 03/26/2024) Medications Glucosamine-Chondro itin Max St Oral Capsule [...] as of this encounter (statuses as of 03/26/2024) Active Problems Patient Care Coordination No te [...] as of this encounter (statuses as of 03/26/2024) Resolved Problems Problem Noted Date Diagnosed Date Resolved Date Obstructive hydrocephalus 02/04/2024 documented as of this encounter (statuses as of 03/26/2024) Social History Tobacco Use Types Packs/Day Years [...] encounter Miscellaneous Notes * Telephone Encounter - Maryam Blair RN - 03/25/2024 4:01 PM EST Pt is aware of right breast biopsy result from 03/19/2024. Pt will continue follow up care as per documented in this encounter Plan of Treatment Upcoming Encounters Date Type Department Care Team (Late st Contact Info) Description 03/26/2024 9:30 AM EST Telemedicine Psychology [facility], [address] [phone] Berry Goldberg PsyD [facility] [place], [place] [phone] 03/27/2024 10:45 AM EST Nurse Only Hematology Oncology [facility], [address] [phone] [place], Nurse Lab Hem/Onc [address] [place] [phone] 03/27/2024 11:30 AM EST Office Visit Hematology Oncology [facility], [address] [phone] Lynda Mendez CRNP [facility] [place] [address] 03/27/2024 12:00 PM EST Hem/Onc Treatment Hematology Oncology [facility], [address] [address] [place], Chair 15 Hem/Onc [address] [place] [address] 03/27/2024 2:00 PM EST Office Visit Palliative Medicine [facility], [address] [phone] Ellis Rangel MD [facility] [address] [place], [place] [phone] 03/27/2024 3:00 PM EST Office Visit Radiation Oncology, [address] [phone] Torres Gaona MD [facility] [address] [place], [place] [phone] 04/03/2024 11:45 AM EST Pharmacy Pharmacy Hematology Oncology [facility], [place] [address] [place] [address] [facility] [place] [place], [facility] Hem/Onc [facility] [place] [address] 04/04/2024 9:00 AM EST Office Visit Hematology Oncology [place] [address] [place] [phone] Huang Joe MD [facility] [place] [address] Health Maintenance Due Date Last Done Comments COVID-19 Vaccine (#1) 10/14/1988 Depression Screening 1995 Influenza Vaccine (FLU shot) (#1) 2023 documented as of this encounter Medical Devices Implanted Type Area Abrasive Worker Device Identifier Shelf Expiration Date Model / Serial / Lot Valve Program Certal Pls - [id number] Implanted:Qty: 1 on 02/13/2024 by Oswaldo Rehman MD [place] [facility] Right: Head [employer] JENNIFER [id number] 10/13/2028 [id number] / / [id number] Cath Vent Bactiseal [id number] - [id number] Implanted:Qty: 1 on 02/13/2024 by Oswaldo Rehman MD at [place] [facility] Right: Head [employer] JENNIFER [id number] 11/12/2024 82-3072 / / [id number] Valve Program Certal Pls - [id number] Implanted:Qty: 1 on 02/13/2024 by Oswaldo Rehman MD at [place] [facility] Right: Head [employer] JENNIFER [id number] 10/13/2028 [id number] / / [id number] Marker Site Biopsy - [id number] Implanted:Qty: 1 on 03/19/2024 at [facility] [employer] TRIMARK EVIVA 2S-13 / / documented [...] Advance Directives occurred with: Patient Care Teams Composite Assembler Relationship Specialty Start Date End Date Gwendolyn Han MD [address] [place] [facility] [place] [address] PCP - General Hematology/Oncology 12/15/23 documented as of this encounter
--- OUTSIDE RECORDS SUMMARY | 2024-04-16 15:07 | External Medical Summary | Summary of Care ---
Author Name Unknown Organization [facility] Address [address] [place] [address] Phone [phone] Care Team Providers Care Assistant Men'S Lacrosse Coach Name Role Phone Gwendolyn Han MD Primary Care Provider [phone] Reason for Visit * Reason Onset Date Comments FYI 03/18/2024 Breast bx Encounter Details Date Type Department Care Team (Late st Contact Info) Description 03/18/2024 Telephone Hematology Oncology [facility] [address] [place] [address] Huang Joe MD [address] [place] [address] FYI (Breast bx) Allergies Active Allergy Reactions Criticality Noted Date Comments Heparin Unknown 02/22/2024 Per patient - cannot have Heparin as it contains a pork product. Please do not use heparin for port flush. documented as of this encounter (statuses as of 03/19/2024) Medications Glucosamine-Chondro itin Max St Oral Capsule [...] as of this encounter (statuses as of 03/19/2024) Active Problems Patient Care Coordination No te [...] as of this encounter (statuses as of 03/19/2024) Resolved Problems Problem Noted Date Diagnosed Date Resolved Date Obstructive hydrocephalus 02/04/2024 documented as of this encounter (statuses as of 03/19/2024) Social History Tobacco Use Types Packs/Day Years [...] ages 0-17 years) Not on file 01/23/2024 Comments No Sex and Gender Information [...] encounter Miscellaneous Notes * Telephone Encounter - Julia Delgado, BRIDGER - 03/18/2024 1:26 PM EST FYI, patient was seen 03/13/24 for diagnostic breast imaging with the possibility of a biopsy immediately following. Diagnostic imaging completed: Impression No mammographic evidence of malignancy within the left breast. Ribbon and dumbbell-shaped biopsy markers within the right breast one o'clock at sites of biopsy proven breast carcinoma. Slightly increased group of calcifications with associated subtle increased density on mammogram savage potential correlate to FDG avid mass seen [...] if pathology results would impact medical management. I called cell number today and left a message requesting patient call to confirm Stereotatic biopsyfor tomorrow 03/19/24 or to cancel request and remove hold on the schedule. documented in this encounter Plan of Treatment Upcoming Encounters Date Type Department Care Team (Late st Contact Info) Description 03/19/2024 11:00 AM EST Imaging Radiology [facility], [place] [address] [place] [phone] 03/26/2024 9:30 AM EST Telemedicine Psychology [address] [address] Berry Goldberg PsyD [address] [place] [address] 03/27/2024 10:45 AM EST Nurse Only Hematology Oncology [facility], [address] [address] [place] Nurse [facility] Hem/Onc [address] [place] [address] 03/27/2024 11:30 AM EST Office Visit Hematology Oncology [facility], [address] [address] Lynda Mendez CRNP [address] [place], [place] [phone] 03/27/2024 12:00 PM EST Hem/Onc Treatment Hematology Oncology [facility], [place] [address] [place], [place] [phone] [place], Chair 15 Hem/Onc [address] [place] [phone] 03/27/2024 2:00 PM EST Office Visit Palliative Medicine [facility], [address] [phone] Ellis Rangel MD [facility] [place] [address] 03/27/2024 3:00 PM EST Office Visit Radiation Oncology, [address] [address] Torres Gaona MD [facility] [address] [place], [place] [phone] 04/04/2024 9:00 AM EST Office Visit Hematology Oncology [facility], [address] [address] Huang Joe MD [facility] [place] [address] Health Maintenance Due Date Last Done Comments COVID-19 Vaccine (#1) 10/14/1988 Depression Screening 1995 Influenza Vaccine (FLU shot) (#1) 2023 documented as of this encounter Medical Devices Implanted Type Area Presser Cotton Ginning Device Identifier Shelf Expiration Date Model / Serial / Lot Valve Program Certal Pls - [id number] Implanted:Qty: 1 on 02/13/2024 by Oswaldo Rehman MD at [facility] Right: Head [employer] [id number] 10/13/2028 [id number] / / [id number] Cath Vent Bactiseal [id number] - [id number] Implanted:Qty: 1 on 02/13/2024 by Oswaldo Rehman MD [place] [facility] [place]: Head [employer] JENNIFER [id number] 11/12/2024 82-3072 / / [id number] Valve Program Certal Pls - [id number] Implanted:Qty: 1 on 02/13/2024 by Oswaldo Rehman MD [place] [facility] Right: Head [employer] JENN[employer]ER [id number] 10/13/2028 [id number] / / [id number] documented as of this encounter Advance Directives [...] Advance Directives occurred with: Patient Care Teams Assistant Men'S Lacrosse Coach Relationship Specialty Start Date End Date Gwendolyn Han MD [address] [place] [address] PCP - General Hematology/Oncology 12/15/23 documented as of this encounter
--- OUTSIDE RECORDS SUMMARY | 2024-04-16 15:07 | External Medical Summary | Summary of Care ---
Author Name Unknown Organization [facility] Address [address] [place] [address] Phone [phone] Care Team Providers Care Excavating Contractor Name Role Phone Gwendolyn Han MD Primary Care Provider [phone] Encounter Details Date Type Department Care Team (Late st Contact Info) Description 03/15/2024 Orders Only Hematology/Oncology [facility] [address] [place] [address] Alicia Murillo MD [address] [place] [address] Allergies Active Allergy Reactions Criticality Noted Date Comments Heparin Unknown 02/22/2024 Per patient - cannot have Heparin as it contains a pork product. Please do not use heparin for port flush. documented as of this encounter (statuses as of 03/16/2024) Medications Glucosamine-Chondro itin Max St Oral Capsule [...] as of this encounter (statuses as of 03/16/2024) Active Problems Patient Care Coordination No te [...] as of this encounter (statuses as of 03/16/2024) Resolved Problems Problem Noted Date Diagnosed Date Resolved Date Obstructive hydrocephalus 02/04/2024 documented as of this encounter (statuses as of 03/16/2024) Social History Tobacco Use Types Packs/Day Years [...] Team (Late st Contact Info) Description 03/18/2024 11:45 AM EST Pharmacy Pharmacy Hematology Oncology [facility] [address] [place] [address] [facility] Hem/Onc [address] [place] [address] 03/18/2024 2:30 PM EST Hem/Onc Treatment Hematology/Oncology Treatment, [address] [address] [place], Chair 9 Hem Onc Scenery [address] [place] [address] 03/26/2024 9:30 AM EST Telemedicine Psychology [facility], [address] [address] Berry Goldberg PsyD [facility] [place] [address] 03/27/2024 10:45 AM EST Nurse Only Hematology Oncology [facility], [address] [address] [place], Nurse Lab Hem/Onc [address] [place] [address] 03/27/2024 11:30 AM EST Office Visit Hematology Oncology [facility], [address] [phone] Lynda Mendez CRNP [facility] [place] [address] 03/27/2024 12:00 PM EST Hem/Onc Treatment Hematology Oncology [facility], [address] [address] [place], Chair 15 Hem/Onc [address] [place] [address] 03/27/2024 2:00 PM EST Office Visit Palliative Medicine [facility], [address] [address] Ellis Rangel MD [facility] [place] [address] 03/27/2024 3:00 PM EST Office Visit Radiation Oncology, [address] [address] Torres Gaona MD [facility] [place] [address] 04/04/2024 9:00 AM EST Office Visit Hematology Oncology [facility] [address] [place] [address] Huang Joe MD [address] [place] [address] Health Maintenance Due Date Last Done Comments COVID-19 Vaccine (#1) 10/14/1988 Depression Screening 1995 Influenza Vaccine (FLU shot) (#1) 2023 documented as of this encounter Medical Devices Implanted Type Area Printer Slotter Feeder Device Identifier Shelf Expiration Date Model / Serial / Lot Valve Program Certal Pls - [id number] Implanted:Qty: 1 on 02/13/2024 by Oswaldo Rehman MD at [place] [facility] Right: Head [employer] JENNIFER [id number] 10/13/2028 [id number] / / [id number] Cath Vent Bactiseal [id number] - [id number] Implanted:Qty: 1 on 02/13/2024 by Oswaldo Rehman MD at [place] [facility] Right: Head [employer] JENN[employer]ER [id number] 11/12/2024 82-3072 / / [id number] Valve Program Certal Pls - [id number] Implanted:Qty: 1 on 02/13/2024 by Oswaldo Rehman MD at [place] [facility] Right: Head [employer] [id number] 10/13/2028 [id number] / / [id number] documented as of this encounter Advance Directives [...] Advance Directives occurred with: Patient Care Teams Excavating Contractor Relationship Specialty Start Date End Date Gwendolyn Han MD [address] [place] [facility] [place] [address] PCP - General Hematology/Oncology 12/15/23 documented as of this encounter
--- OUTSIDE RECORDS SUMMARY | 2024-04-16 15:07 | External Medical Summary | Summary of Care ---
Author Name Unknown Organization [facility] Address [address] [place] [address] Phone [phone] Care Team Providers Care Production Line Operator Name Role Phone Gwendolyn Han MD Primary Care Provider [phone] Encounter Details Date Type Department Care Team (Late st Contact Info) Description 03/27/2024 10:45 AM EST Nurse Only Hematology Oncology [facility] [address] [place], [place] [phone] [place], Nurse Lab Hem/Onc [address] [place] [address] Arrived Allergies Active Allergy Reactions [...] 11:45 AM EST Pharmacy Pharmacy Hematology Oncology [address] [address] [facility], [facility] Hem/Onc [address] [place] [address] 04/04/2024 9:00 AM EST Office Visit Hematology Oncology [facility] [address] [address] Huang Joe MD [facility] [place] [address] 04/04/2024 11:00 AM EST Office Visit Palliative Medicine [facility] [address] [phone] Hai Houston MD [facility] [address] [place], [place] [phone] 04/24/2024 10:00 AM EDT Telemedicine Psychology [facility] [address] [address] Berry Goldberg PsyD [facility] [address] [place], [place] [phone] Pending Results Name Type Priority Associated Diagnoses Date /Time CA 15-3 Lab Routine 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) Brain compression (HCC) 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 SECURITY ANALYST shunt 03/27/2024 12:37 PM EST Health Maintenance Due Date Last Done Comments COVID-19 Vaccine (#1) 10/14/1988 Depression Screening 1995 Influenza Vaccine (FLU shot) (#1) 2023 documented as of this encounter Medical Devices Implanted Type Area Development Coordinator Device Identifier Shelf Expiration Date Model / Serial / Lot Valve Program Certal Pls - [id number] Implanted:Qty: 1 on 02/13/2024 by Oswaldo Rehman MD [place] [facility] [place]: Head [employer] [id number] 10/13/2028 [id number] / / [id number] Cath Vent Bactiseal [id number] - [id number] Implanted:Qty: 1 on 02/13/2024 by Oswaldo Rehman MD [place] [facility] [place]: Head [employer] [id number] 11/12/2024 82-3072 / / [id number] Valve Program Certal Pls - [id number] Implanted:Qty: 1 on 02/13/2024 by Oswaldo Rehman MD at [facility] Right: Head [employer] [id number] 10/13/2028 [id number] / / [id number] Marker Site Biopsy - [id number] Implanted:Qty: 1 on 03/19/2024 at [facility] FORA.tvMITCHELL EVIVA 2S-13 / / documented as of [...] 10.80 K/uL 03/27/2024 11:14 AM EST [facility] Neutrophils % 61.1 40.0 - 75.0 % 03/27/2024 11:14 AM EST [facility] Lymphocytes % 28.5 18.0 - 42.0 % 03/27/2024 11:14 AM EST [facility] Monocytes % 8.0 1.0 - 11.0 % 03/27/2024 11:14 AM EST [facility] Eosinophils % 1.7 0.0 - 6.0 % 03/27/2024 11:14 AM EST [facility] Basophils % 0.5 0.0 - 2.0 % 03/27/2024 11:14 AM EST [facility] Immature Granulocytes % 0.2 0.0 - 2.0 % 03/27/2024 11:14 AM EST [facility] Absolute Neutrophils 2.50 1.80 - 7.70 K/uL 03/27/2024 11:14 AM EST [facility] Absolute Lymphocytes 1.17 1.00 - 4.80 K/ul 03/27/2024 11:14 AM EST [facility] Absolute Monocytes 0.33 0.00 - 1.10 K/uL 03/27/2024 11:14 AM EST [facility] Absolute Eosinophils 0.07 0.00 - 0.70 K/uL 03/27/2024 11:14 AM EST [facility] Absolute Basophils 0.02 0.00 - 0.20 K/uL 03/27/2024 11:14 AM EST [facility] Absolute Immature Granulocytes 0.01 0.00 - 0.20 K/uL 03/27/2024 11:14 AM EST [facility] Blood Blood sample taken from central line / Unknown Central Line / Unknown 03/27/2024 11:05 AM EST 03/27/2024 11:12 AM EST us Huang Joe MD LAB BLOOD ORDERABLE S Final Result [facility] [address] [place] [address] * (ABNORMAL) CBC (03/27/2024 11:05 AM EST) WBC 4.10 4.00 - 10.80 K/uL 03/27/2024 11:14 AM EST [facility] RBC 3.79 3.85 - 5.15 M/uL 03/27/2024 11:14 AM EST [facility] HGB 11.2(L) 12.0 - 15.3 g/dL 03/27/2024 11:14 AM EST [facility] HCT 33.9(L) 36.0 - 45.2 % 03/27/2024 11:14 AM EST [facility] MCV 89.4 81.5 - 97.5 fL 03/27/2024 11:14 AM EST [facility] MCH 29.6 27.0 - 34.0 pg 03/27/2024 11:14 AM EST [facility] MCHC 33.0 32.0 - 36.0 g/dL 03/27/2024 11:14 AM EST [facility] RDW 13.8 11.5 - 15.5 % 03/27/2024 11:14 AM EST [facility] PLT 237 140 - 400 K/uL 03/27/2024 11:14 AM EST [facility] MPV 9.0 6.6 - 11.1 fL 03/27/2024 11:14 AM EST [facility] nRBCs 0 <=0 /100 WBCs 03/27/2024 11:14 AM EST [facility] Blood Blood sample taken from central line / Unknown Central Line / Unknown 03/27/2024 11:05 AM EST 03/27/2024 11:12 AM EST us Huang Joe MD LAB BLOOD ORDERABLE S Final Result [facility] [address] [place] [address] * COMPREHENSIVE METABOLIC PANEL (03/27/2024 [...] ORDERABLE S Final Result [facility] [address] [place] [address] documented in this encounter Visit Diagnoses Diagnosis 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
--- OUTSIDE RECORDS SUMMARY | 2024-04-16 15:07 | External Medical Summary | Summary of Care ---
Author Name Unknown Organization [facility] Address [address] [place] [address] Phone [phone] Care Team Providers Care Tool Room Attendant Name Role Phone Gwendolyn Han MD Primary Care Provider [phone] Reason for Visit * Reason Onset Date Comments Appointment 03/15/2024 Encounter Details Date Type Department Care Team (Late st Contact Info) Description 03/15/2024 Telephone Hematology/Oncology Treatment, [place] [address] [place] [address] Alicia Murillo MD [address] [place] [address] Appointment Allergies Active Allergy Reactions Criticality Noted Date [...] encounter Miscellaneous Notes * Telephone Encounter - Alex Smith OSA - 03/19/2024 9:15 AM EST Spoke with patient. She advised she does not want to receive this at this time. Nursing FYI * Telephone Encounter - Eli Lopez OSA - 03/18/2024 9:02 AM EST Left message x 2 * Telephone Encounter - Eli Lopez OSA - 03/15/2024 3:50 PM EST Scheduled for Monday at 230 and left VM * Telephone Encounter - Cindy Infante RN - 03/15/2024 3:17 PM EST Received message from Alicia Ramires, patient to get hydration at 03/18/24. Per Alicia, patient is to get hydration weekly until no longer needed. There is a signed beacon plan in place. Scheduling: please call patient to schedule 2 hour appt "hydration" (Dr Alicia Murillo)- requesting 2/3 if able to be accommodated. Patient will need this once a week. Thanks! documented in this encounter Plan of Treatment Upcoming Encounters Date Type Department Care Team (Late st Contact Info) Description 03/26/2024 9:30 AM EST Telemedicine Psychology [address] [address] Berry Goldberg PsyD [facility] [place] [address] 03/27/2024 10:45 AM EST Nurse Only Hematology Oncology [facility] [address] [address] [place], Nurse Lab Hem/Onc [address] [place] [phone] 03/27/2024 11:30 AM EST Office Visit Hematology Oncology [address] [address] Lynda Mendez CRNP [facility] [place] [address] 03/27/2024 12:00 PM EST Hem/Onc Treatment Hematology Oncology [facility] [address] [phone] [place], [facility] 15 Hem/Onc [address] [place] [address] 03/27/2024 2:00 PM EST Office Visit Palliative Medicine [facility] [address] [phone] Ellis Rangel MD [facility] [address] [place], [place] [phone] 03/27/2024 3:00 PM EST Office Visit Radiation Oncology, [address] [phone] Torres Gaona MD [address] [place] [phone] 04/04/2024 9:00 AM EST Office Visit Hematology Oncology [facility] [address] [address] Huang Joe MD [facility] [address] [place], [place] [phone] Health Maintenance Due Date Last Done Comments COVID-19 Vaccine (#1) 10/14/1988 Depression Screening 1995 Influenza Vaccine (FLU shot) (#1) 2023 documented as of this encounter Medical Devices Implanted Type Area Sanitation Officer Device Identifier Shelf Expiration Date Model / Serial / Lot Valve Program Certal Pls - [id number] Implanted:Qty: 1 on 02/13/2024 by Oswaldo Rehman MD [place] [facility] Right: Head [employer] JENNIEFR [id number] 10/13/2028 [id number] / / [id number] Cath Vent Bactiseal 533068 - [id number] Implanted:Qty: 1 on 02/13/2024 by Oswaldo Rehman MD [place] [facility] Right: Head [employer] JENNIFER [id number] 11/12/2024 82-3072 / / [id number] Valve Program Certal Pls - [id number] Implanted:Qty: 1 on 02/13/2024 by Oswaldo Rehman MD [place] [facility] Right: Head [employer] [id number] 10/13/2028 [id number] / / [id number] documented as of this encounter Advance Directives [...] Advance Directives occurred with: Patient Care Teams Tool Room Attendant Relationship Specialty Start Date End Date Gwendolyn Han MD [address] [place] [facility] [place] [address] PCP - General Hematology/Oncology 12/15/23 documented as of this encounter
--- OUTSIDE RECORDS SUMMARY | 2024-04-16 15:07 | External Medical Summary | Summary of Care ---
Author Name Unknown Organization [facility] Address [address] [place] [address] Phone [phone] Care Team Providers Care Court Crier Name Role Phone Gwendolyn Han MD Primary Care Provider [phone] Reason for Visit * Reason Onset Date Comments Appointment 03/15/2024 Encounter Details Date Type Department Care Team (Late st Contact Info) Description 03/15/2024 Telephone Hematology/Oncology Treatment, [place] [address] [place] [address] Alicia Murillo MD [address] [place] [address] Appointment Allergies Active Allergy Reactions [...] Description 03/26/2024 9:30 AM EST Telemedicine Psychology [address] [address] Berry Goldberg PsyD [facility] [place] [address] 03/27/2024 10:45 AM EST Nurse Only Hematology Oncology [facility], [address] [address] [place], Nurse Lab Hem/Onc [address] [place] [phone] 03/27/2024 11:30 AM EST Office Visit Hematology Oncology [address] [address] Lynda Mendez CRNP [facility] [place] [address] 03/27/2024 12:00 PM EST Hem/Onc Treatment Hematology Oncology [facility], [address] [phone] [place], [facility] 15 Hem/Onc [address] [place] [address] 03/27/2024 2:00 PM EST Office Visit Palliative Medicine [facility], [address] [phone] Ellis Rangel MD [facility] [address] [place], [place] [phone] 03/27/2024 3:00 PM EST Office Visit Radiation Oncology, [address] [phone] Torres Gaona MD [address] [place] [phone] 04/04/2024 9:00 AM EST Office Visit Hematology Oncology [facility], [address] [address] Huang Joe MD [facility] [address] [place], [place] [phone] Health Maintenance Due Date Last Done Comments COVID-19 Vaccine (#1) 10/14/1988 Depression Screening 1995 Influenza Vaccine (FLU shot) (#1) 2023 documented as of this encounter Medical Devices Implanted Type Area Plant Accountant Device Identifier Shelf Expiration Date Model / Serial / Lot Valve Program Certal Pls - [id number] Implanted:Qty: 1 on 02/13/2024 by Oswaldo Rehman MD at [place] [facility] [place] Right: Head [employer] JENNIFER [id number] 10/13/2028 [id number] / / [id number] Cath Vent Bactiseal 995454 - [id number] Implanted:Qty: 1 on 02/13/2024 by Oswaldo Rehman MD at [place] [facility] Right: Head [employer]ER [id number] 11/12/2024 82-3072 / / [id number] Valve Program Certal Pls - [id number] Implanted:Qty: 1 on 02/13/2024 by Oswaldo Rehman MD at [place] [facility] Right: Head [employer]ER [id number] 10/13/2028 [id number] / / [id number] documented as of this encounter Advance Directives [...] Advance Directives occurred with: Patient Care Teams Court Crier Relationship Specialty Start Date End Date Gwendolyn Han MD [address] [facility] [place] [address] PCP - General Hematology/Oncology 12/15/23 documented as of this encounter
--- OUTSIDE RECORDS SUMMARY | 2024-04-16 15:07 | External Medical Summary ---
Author Name Unknown Address Unknown Organization K01:[facility] - [address] [facility]. [facility] [address] Laboratory Report Ordering Provider Test Date Status JAVI FLORENCE 03/27/2024 11:05:53 Final Observation Date Value Abnormality Reference (Units ) Status WBC, Total 03/27/2024 11:05:53 4.10 4.00-10.80 (K/uL) Final RBC 03/27/2024 11:05:53 3.79 3.85-5.15 (M/uL) Final Hemoglobin 03/27/2024 11:05:53 11.2 Below low normal 12.0-15.3 (g/dL) Final HCT 03/27/2024 11:05:53 33.9 Below low normal 36.0-45.2 (%) Final MCV 03/27/2024 11:05:53 89.4 81.5-97.5 (fL) Final MCH 03/27/2024 11:05:53 29.6 27.0-34.0 (pg) Final MCHC 03/27/2024 11:05:53 33.0 32.0-36.0 (g/dL) Final RDW 03/27/2024 11:05:53 13.8 11.5-15.5 (%) Final Platelets 03/27/2024 11:05:53 237 140-400 (K/uL) Final MPV 03/27/2024 11:05:53 9.0 6.6-11.1 (fL) Final Nucleated erythrocytes/100 leukocytes [Ratio] in Blood by Automated count 03/27/2024 11:05:53 0 <=0 (/100 WBCs) Final Performing Location [facility] - [address] [facility] [facility] [address]
--- OUTSIDE RECORDS SUMMARY | 2024-04-16 15:07 | External Medical Summary ---
Author Name Unknown Address Unknown Organization : Laboratory Report Ordering Provider Test Date Status MOUSTAPHA VILLATORO 03/27/2024 12:37:11 Final Observation Date Value Abnormality Reference (Units ) Status Cancer Ag 15-3 03/27/2024 12:37:11 112 Above high norm al <32 (U/mL) Final This test was performed usin g the Siemens
chemiluminescent method. Values obtained from
different assay methods cannot be used inter-
changeably. CA 15-3 levels, regardless of value,
should not be interpreted as absolute evidence
of the presence or absence of disease.

Test Performed at:
[employer] [facility]
[address] [facility] [place] [address]
Bennett Rajput M.D., Ph.D.,Director of Laboratories Performing Location
--- OUTSIDE RECORDS SUMMARY | 2024-04-16 15:07 | External Medical Summary | Summary of Care ---
Author Name Unknown Organization [facility] Address [address] [place] [address] Phone [phone] Care Team Providers Care Apns Name Role Phone Gwendolyn Han MD Primary Care Provider [phone] Reason for Visit * Reason Onset Date Comments Appointment 03/15/2024 Encounter Details Date Type Department Care Team (Late st Contact Info) Description 03/15/2024 Telephone Hematology/Oncology Treatment, [place] [address] [place] [address] Alicia Murillo MD [address] [place] [address] Appointment Allergies Active Allergy Reactions Criticality Noted Date Comments Heparin Unknown 02/22/2024 Per patient - cannot have Heparin as it contains a pork product. Please do not use heparin for port flush. documented as of this encounter (statuses as of 03/18/2024) Medications Glucosamine-Chondro itin Max St Oral Capsule [...] as of this encounter (statuses as of 03/18/2024) Active Problems Patient Care Coordination No te [...] as of this encounter (statuses as of 03/18/2024) Resolved Problems Problem Noted Date Diagnosed Date Resolved Date Obstructive hydrocephalus 02/04/2024 documented as of this encounter (statuses as of 03/18/2024) Social History Tobacco Use Types Packs/Day Years [...] encounter Miscellaneous Notes * Telephone Encounter - Eli Lopez OSA [...] hour appt "hydration" (Dr Alicia Murillo)- requesting / if able to be accommodated. Patient will need this once a week. Thanks! documented in this encounter Plan of Treatment Upcoming Encounters Date Type Department Care Team (Late st Contact Info) Description 03/19/2024 11:00 AM EST Imaging Radiology [address], [place] [address] [place] [phone] 03/26/2024 9:30 AM EST Telemedicine Psychology [address] [phone] Berry Goldberg PsyD [address] [place] [address] [phone] 03/27/2024 10:45 AM EST Nurse Only Hematology Oncology [address] [phone] [place], Nurse Lab Hem/Onc [facility] [address] [place], [place] [phone] 03/27/2024 11:30 AM EST Office Visit Hematology Oncology [address] [phone] Lynda Mendez CRNP [facility] [address] [place], [place] [phone] 03/27/2024 12:00 PM EST Hem/Onc Treatment Hematology Oncology [address] [place] [address] [place], Chair 15 Hem/Onc [facility] [address] [place], [place] [phone] 03/27/2024 2:00 PM EST Office Visit Palliative Medicine [facility] [address] [address] Ellis Rangel MD [facility] [place] [address] 03/27/2024 3:00 PM EST Office Visit Radiation Oncology, [address] [phone] Torres Gaona MD [facility] [address] [place], [place] [phone] 04/04/2024 9:00 AM EST Office Visit Hematology Oncology [facility] [address] [phone] Huang Joe MD [facility] [address] [place], [place] [phone] Health Maintenance Due Date Last Done Comments COVID-19 Vaccine (#1) 10/14/1988 Depression Screening 1995 Influenza Vaccine (FLU shot) (#1) 2023 documented as of this encounter Medical Devices Implanted Type Area Sprinkling Truck Driver Device Identifier Shelf Expiration Date Model / Serial / Lot Valve Program Certal Pls - [id number] Implanted:Qty: 1 on 02/13/2024 by Oswaldo Rehman MD at [place] [facility] Right: Head [employer] JENNIFER [id number] 10/13/2028 [id number] / / [id number] Cath Vent Bactiseal [id number] - [id number] Implanted:Qty: 1 on 02/13/2024 by Oswaldo Rehman MD at [place] [facility] Right: Head [employer] JENNIFER [id number] 11/12/2024 82-3072 / / [id number] Valve Program Certal Pls - [id number] Implanted:Qty: 1 on 02/13/2024 by Oswaldo Rehman MD at [facility] Right: Head [employer] JENNIFER [id number] 10/13/2028 [id number] / / [id number] documented as of this encounter Advance Directives [...] Advance Directives occurred with: Patient Care Teams Apns Relationship Specialty Start Date End Date Gwendolyn Han MD [address] [place] [address] PCP - General Hematology/Oncology 12/15/23 documented as of this encounter
--- OUTSIDE RECORDS SUMMARY | 2024-04-16 15:07 | External Medical Summary | Summary of Care ---
Author Name Unknown Organization [facility] Address [address] [place] [address] Phone [phone] Care Team Providers Care Athletic Trainer Name Role Phone Gwendolyn Han MD Primary Care Provider [phone] Reason for Visit * Reason Comments Medication Management Encounter Details Date Type Department Care Team (Late st Contact Info) Description 03/18/2024 11:45 AM [facility] Pharmacy Pharmacy Hematology Oncology [facility] [address] [place] [address] [facility] Hem/Onc [address] [place], [place] [phone] 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 Please do not use heparin for port flush. documented as of this encounter (statuses as of 03/20/2024) Medications Glucosamine-Chondro itin Max St Oral Capsule [...] as of this encounter (statuses as of 03/20/2024) Active Problems Patient Care Coordination No te [...] as of this encounter (statuses as of 03/20/2024) Resolved Problems Problem Noted Date Diagnosed Date Resolved Date Obstructive hydrocephalus 02/04/2024 documented as of this encounter (statuses as of 03/20/2024) Social History Tobacco Use Types Packs/Day Years [...] documented in this encounter Progress Notes * Martine Gómez, [facility] - 03/20/2024 10:28 AM EST MEDICATION THERAPY MANAGEMENT CAPECITABINE + TUCATINIB TREATMENT PROGRESS NOTE Padmaja Burris [id number] Patient Phone Numbers Preferred Lab: Specialty Pharmacy: Communication: Left message requesting return call to assess toleration to therapy Treatment: Medication: Capecitabine (Xeloda) Indication/Staging/Diagnosis Code: Breast w/ mets, HER2+ C79.9, C50.919, Z17.31 Dose Basis: 1000 mg/m2 Dose: 1500 mg Administration: within 30 minutes of a meal Medication: Tucatinib (Tukysa) Dose: 300 mg PO BID Administration: +/- food Start Date: TBD Primary Administrative Liaison/Oncologist: Dr. Joe Additional Therapy: Leuprolide Trastuzumab Denosumab Supportive Care Meds: Ondansetron Prochlorperazine Cycle Dates C1 TBD C2 TBD Treatment History: XRT, THP, Phesgo, [...] medication and then discontinued due to nausea Left voicemail requesting return call to clinic to review if medication started and to review toleration to therapy Assessment of compliance: N/a Assessment of adverse effects attributed to drug therapy: N/a Dose adjustment needed based on lab or adverse drug reaction? N/a Follow up: Labs/OV 03/27, MTM 04/03 Martine Gómez, PharmD Ambulatory Clinical Pharmacist | Oral Chemotherapy Clinic [facility] 03/20/2024 10:28 AM Monitoring Parameters: Estimated CrCl Serum creatinine: 0.5 mg/dL 02/22/24 1252 Estimated creatinine clearance: 133.9 mL/min Hepatitis panel Ordered to be completed with repeat labs test Will require monthly screening Suggested lab [...] Parameters See PI Time Spent on Encounter: < 5 minutes Encounter Group: Oncology Encounter Interventions Item Category: Oral Chemotherapy Capecitabine Problem/Rationale: Safety: Needs additional monitoring - Medication Requires monitoring Pharmacist Intervention(s): Care coordination and Toxicity monitoring Magnitude of Intervention: Monitoring with direction (Level 1) Second Item Second Item Category: Oral Chemotherapy Tucatinib Problem/Rationale: Safety: Needs additional monitoring - Medication Requires monitoring Pharmacist Intervention(s): Care coordination and Toxicity monitoring Magnitude of Intervention: Monitoring with direction (Level 1) documented in this encounter Plan of Treatment Upcoming Encounters Date Type Department Care Team (Late st Contact Info) Description 03/26/2024 9:30 AM EST Telemedicine Psychology [address] [phone] Berry Goldberg PsyD [address] [place] [address] 03/27/2024 10:45 AM EST Nurse Only Hematology Oncology [address] [address] [place], Nurse Lab Hem/Onc [address] [place] [address] [phone] 03/27/2024 11:30 AM EST Office Visit Hematology Oncology [address] [phone] Lynda Mendez CRNP [address] [place] [address] [phone] 03/27/2024 12:00 PM EST Hem/Onc Treatment Hematology Oncology [facility], [address] [address] [place], Chair 15 Hem/Onc [address] [place] [address] 03/27/2024 2:00 PM EST Office Visit Palliative Medicine [facility], [address] [address] Ellis Rangel MD [address] [place] [address] [phone] 03/27/2024 3:00 PM EST Office Visit Radiation Oncology, [address] [phone] Torres Gaona MD [address] [place] [address] [phone] 04/03/2024 11:45 AM EST Pharmacy Pharmacy Hematology Oncology [address] [address] [facility] Hem/Onc [address] [place] [address] 04/04/2024 9:00 AM EST Office Visit Hematology Oncology [address] [phone] Huang Joe MD [address] [place] [address] [phone] Health Maintenance Due Date Last Done Comments COVID-19 Vaccine (#1) 10/14/1988 Depression Screening 1995 Influenza Vaccine (FLU shot) (#1) 2023 documented as of this encounter Medical Devices Implanted Type Area Quick Mixer Operator Device Identifier Shelf Expiration Date Model / Serial / Lot Valve Program Certal Pls - [id number] Implanted:Qty: 1 on 02/13/2024 by Oswaldo Rehman MD at [facility] Right: Head [employer] JENNIFER [id number] 10/13/2028 [id number] / / [id number] Cath Vent Bactiseal [id number] - [id number] Implanted:Qty: 1 on 02/13/2024 by Oswaldo Rehman MD at [facility] Right: Head [employer] JENNIFER [id number] 11/12/2024 82-3072 / / [id number] Valve Program Certal Pls - [id number] Implanted:Qty: 1 on 02/13/2024 by Oswaldo Rehman MD at [facility] Right: Head [employer] JENNIFER [id number] 10/13/2028 [id number] / / [id number] Marker Site Biopsy - [id number] Implanted:Qty: 1 on 03/19/2024 at [facility] [employer] TRIMARK EVIVA 2S-13 / / documented [...] Advance Directives occurred with: Patient Care Teams Athletic Trainer Relationship Specialty Start Date End Date Gwendolyn Han MD [address] [place] [facility] [place] [address] PCP - General Hematology/Oncology 12/15/23 documented as of this encounter"
--- OUTSIDE RECORDS SUMMARY | 2024-04-16 15:07 | External Medical Summary | Summary of Care ---
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] of Assessment Author Yes 02/05/2024 12:29 AM EST Joan, Shakira, RN documented as of this encounter Mental Status * Because of a physical, mental, or emotional condition, do you have serious difficulty concentrating, remembering, or making decisions? (5 years old or older) Answer Entry Date Author No 02/05/2024 12:29 AM Shakira Aden RN documented in this encounter Progress Notes * Berry Goldberg PsyD - 03/26/2024 9:30 AM EST PSYCHO-ONCOLOGY EVALUATION Patient location: HOME. I was in a hospital or clinic location. After connecting through televideo,patient was verified with two unique identifiers. Patient (or authorized legal registered representative) was then informed that this was a Telemedicine visit and being conducted confidentially over secure lines. Methods to assure confidentiality were taken. Patient acknowledged consent and understanding of pr ivacy and security of the Telemedicine visit. The patient agreed to participate. After connecting through Televideo, patient was verified with two unique identifiers. Patient (or authorized legal registered representative) was then informed that this was a Telemedicine visit and that the exam was being conducted confidentially. My office door was closed. No one else was in the room with me. Patient acknowledged consent and understanding of privacy and security of this virtual visit. I informed the patient that I have reviewed their record in [employer] and presented the opportunity for themto ask any questions regarding the visit today. The patient agreed to participate. *Padmaja's , Yonis, was present throughout the evaluation w/ the consent of the patient Provider determined this patient has capacity to receive and benefit from telehealth services. Timing assessment: This is the initial onset of the assessed illness: - Start Time: 9:38 AM Stop Time: 10:20 AM Referral Source: Huang Joe MD Cancer History: Diagnosis: cancer of left breast metastatic to brain Oncologist: Huang Joe MD History of Present Illness: Padmaja Burris is a 38 year old female that presents w/ elevated distress secondary to ongoing oncologic treatment and decision making. She reports to be coping w/ the aid of her social support system and states that commitment to a single treatment plan has contributed to greater management of treatment associated distress. 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 Patient's last PHQ-9 score (Adult) - and Patient's last ZENON-7 score - Measure Interpretations: Patient Health Questionnaire (PHQ-9) (0-4 Min [0]; 5-9 Mild [1]; 10-14 Moderate [2]; 15+ Severe [3]) Generalized Anxiety Disorder (ZENON-7) (0-4 Min [0]; 5-9 Mild [1]; 10-14 Moderate [2]; 15+ Severe [3]) Psychiatry Review of Systems: PSYCHIATRY REVIEW OF SYSTEMS: Depression: Depressed (sad) mood and Decreased interest or pleasure in activites Depression: No changes in sleep patterns and No decreased concentration : pain associated. Decreased interest of pleasure in activities: Improvements w/ setting of priorities Generalized Anxiety Disorder: Muscle tension Generalized Anxiety Disorder: No difficulty concentrating, No irritability and No sleep disturbance Risk Assessment: Personal, Family and Social History: Padmaja Burris lives with her in [place], [place]. 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 Patient has been 4 years and has no children. Patient's partner is Yonis. The patient reports good social support, though she relies on technology for communication in many situations (geographic separation). I have reviewed the patient's social history. Additional community service involvement: - Yazidi/Spiritual Orientation: Jehovah'S Witness Psychiatric History: Outpatient Treatment: Outpatient psychotherapy [employer] Inpatient Treatment: Denies Self injury and suicide attempts: Denies Current psychotropic(s): Denies Substance Abuse History: None Family Psychiatric History: Psychiatric diagnoses: None reported Completed/attempted suicides: None reported Drug and alcohol abuse: None reported Mental Status Evaluation: Appearance: Well groomed, casually dressed, appearing stated age Abnormal Movement: No abnormal movements noted Behavior: Calm, cooperative and appropriate Speech and Language: Normal in rate, rhythm, volume and tone Mood: Euthymic Affect: Appropriate to context and mood-congruent Thought Process: Logical, linear and goal directed Thought Content: No abnormal thought content Hallucinations: No perceptual disturbances Suicidality: No suicidal ideations, intent, method or plan or passive wish Homicidality: No homicidal ideations, intent, plan or target Orientation: Oriented to self, time, place and circumstances Attention: Intact Recent and Remote memory:Intact Insight: Good Judgement: Good Fund of Knowledge: Good Assessment/Formulation: Padmaja continues to adjust to illness management, noting interest in continued follow up w/ psycho-oncology. Encouraged pacing of daily behaviors, setting limits on daily schedule (i.e. keep work schedule/hours) to ensure adequate breaks and effective stress management. [place] continue w/ additional psychotherapeutic supports throughout the cancer care continuum. . Diagnosis: ICD-10-CM 1. Psychological factors affecting medical condition F54 2. Adjustment disorder, unspecified type F43.20 Plan: Medications: N/A Therapy: Psychotherapeutic support, introduction to cognitive behavioral therapy, self-care throughillness management Community Resources: as indicated Lab tests/Medical: N/A Safety: N/A Return in: 3-4 weeks Treatment options and recommendations/interventions reviewed. Patient and/or caregiver verbalize understanding and agrees to plan with explanation of risks/benefits, aware of how to contact clinic with questions. Berry Goldberg PsyD Psychology [address] [address] documented in this encounter Plan of Treatment Upcoming Encounters Date Type Department Care Team (Late st Contact Info) Description 03/27/2024 10:45 AM EST Nurse Only Hematology Oncology [facility], [address] [address] [place], Nurse Lab Hem/Onc [address] [place] [address] 03/27/2024 11:30 AM EST Office Visit Hematology Oncology [facility], [address] [phone] Lynda Mendez CRNP [address] [place] [address] 03/27/2024 12:00 PM EST Hem/Onc Treatment Hematology Oncology [facility], [address] [address] [place], Chair 15 Hem/Onc [address] [place] [address] 03/27/2024 2:00 PM EST Office Visit Palliative Medicine [facility], [address] [phone] Ellis Rangel MD [address] [place] [address] [phone] 03/27/2024 3:00 PM EST Office Visit Radiation Oncology, [address] [phone] Torres Gaona MD [address] [place] [address] [phone] 04/03/2024 11:45 AM EST Pharmacy Pharmacy Hematology Oncology [facility], [address] [address] [facility] Hem/Onc [address] [place] [address] 04/04/2024 9:00 AM EST Office Visit Hematology Oncology [facility], [address] [phone] Huang Joe MD [address] [place] [address] 04/24/2024 10:00 AM EDT Telemedicine Psychology [address] [phone] Berry Goldberg PsyD [address] [place] [address] [phone] Scheduled Referrals Name Type Priority Associated Diagnoses Orde r Schedule ONCOLOGY BEHAVIORAL HEALTH REFERRAL OP Referral Within 10 days (routine) 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) Ordered: 02/22/2024 Health Maintenance Due Date Last Done Comments COVID-19 Vaccine (#1) 10/14/1988 Depression Screening 1995 Influenza Vaccine (FLU shot) (#1) 2023 documented as of this encounter Medical Devices Implanted Type Area Billet Sawyer Device Identifier Shelf Expiration Date Model / Serial / Lot Valve Program Certal Pls - [id number] Implanted:Qty: 1 on 02/13/2024 by Oswaldo Rehman MD at [facility] Right: Head [employer] JENNIFER [id number] 10/13/2028 [id number] / / [id number] Cath Vent Bactiseal [id number] - [id number] Implanted:Qty: 1 on 02/13/2024 by Oswaldo Rehman MD at [facility] Right: Head [employer] JENNIFER [id number] 11/12/2024 82-3072 / / [id number] Valve Program Certal Pls - [id number] Implanted:Qty: 1 on 02/13/2024 by Oswaldo Rehman MD at [facility] Right: Head [employer] JENNIFER [id number] 10/13/2028 [id number] / / [id number] Marker Site Biopsy - [id number] Implanted:Qty: 1 on 03/19/2024 at [facility] [employer] EVIVA 2S-13 / / documented as of this encounter Visit Diagnoses Diagnosis Adjustment disorder, unspecified type- Primary Psychological factors affecting medical condition Psychic factors associated with diseases classified elsewhere documented in this encounter Advance Directives * [...] Advance Directives occurred with: Patient Care Teams First Aid Director Relationship Specialty Start Date End Date Gwendolyn Han MD [address] [facility] [place] [address] PCP - General Hematology/Oncology 12/15/23 documented as of this encounter
--- OUTSIDE RECORDS SUMMARY | 2024-04-16 15:07 | External Medical Summary ---
Author Name Unknown Address Unknown Organization K01:[facility] [address] [address] Laboratory Report Ordering Provider Test Date Status JAVI FLORENCE 03/27/2024 11:05:53 Final Observation Date Value Abnormality Reference (Units ) Status SYNC LEUKOCYTES IN BLOOD BY AUTOMATED COUNT 03/27/2024 11:05:53 4.10 4.00-10.80 (K/uL) Final Segs 03/27/2024 11:05:53 61.1 40.0-75.0 (%) Final Lymphs % 03/27/2024 11:05:53 28.5 18.0-42.0 (%) Final Monos 03/27/2024 11:05:53 8.0 1.0-11.0 (%) Final Eosinophils 03/27/2024 11:05:53 1.7 0.0-6.0 (%) Final Basos 03/27/2024 11:05:53 0.5 0.0-2.0 (%) Final Immature Granulocyte, Percent 03/27/2024 11:05:53 0.2 0.0-2.0 (%) Final Absolute Segs 03/27/2024 11:05:53 2.50 1.80-7.70 (K/uL) Final Lymphs, absolute 03/27/2024 11:05:53 1.17 1.00-4.80 (K/ul) Final Monos, Abs 03/27/2024 11:05:53 0.33 0.00-1.10 (K/uL) Final Eos, Abs 03/27/2024 11:05:53 0.07 0.00-0.70 (K/uL) Final Basos, Abs 03/27/2024 11:05:53 0.02 0.00-0.20 (K/uL) Final Immature Granulocytes, Number 03/27/2024 11:05:53 0.01 0.00-0.20 (K/uL) Final Performing Location [facility] - [address] [facility] [address]
--- OUTSIDE RECORDS SUMMARY | 2024-04-16 15:07 | External Medical Summary | Summary of Care ---
Author Name Unknown Organization [facility] Address [address] [place] [address] Phone [phone] Care Team Providers Care Rehab Liaison Name Role Phone Gwendolyn Han MD Primary Care Provider [phone] Reason for Visit * Reason Onset Date Comments Appointment 03/15/2024 Encounter Details Date Type Department Care Team (Late st Contact Info) Description 03/15/2024 Telephone Hematology/Oncology Treatment, [place] [address] [place] [address] Alicia Murillo MD [address] [place] [address] Appointment Allergies Active Allergy Reactions Criticality Noted Date Comments Heparin Unknown 02/22/2024 Per patient - cannot have Heparin as it contains a pork product. Please do not use heparin for port flush. documented as of this encounter (statuses as of 03/15/2024) Medications Glucosamine-Chondro itin Max St Oral Capsule [...] as of this encounter (statuses as of 03/15/2024) Active Problems Patient Care Coordination No te [...] as of this encounter (statuses as of 03/15/2024) Resolved Problems Problem Noted Date Diagnosed Date Resolved Date Obstructive hydrocephalus 02/04/2024 documented as of this encounter (statuses as of 03/15/2024) Social History Tobacco Use Types Packs/Day Years [...] 11:45 AM EST Pharmacy Pharmacy Hematology Oncology [facility], [address] [address] [facility] [place] [facility] Hem/Onc [address] [place] [address] 03/18/2024 2:30 PM EST Hem/Onc Treatment Hematology/Oncology Treatment, [place] [address] [place] [address] [place], Chair 9 Hem Onc [address]en[address] [place] [address] 03/26/2024 9:30 AM EST Telemedicine Psychology [facility], [address] [phone] Berry Goldberg PsyD [address] [place] [address] [phone] 03/27/2024 10:45 AM EST Nurse Only Hematology Oncology [facility], [address] [phone] [place], Nurse Lab Hem/Onc [address] [place] [address] [phone] 03/27/2024 11:30 AM EST Office Visit Hematology Oncology [facility], [address] [phone] Lynda Mendez CRNP [address] [place] [address] [phone] 03/27/2024 12:00 PM EST Hem/Onc Treatment Hematology Oncology [facility], [address] [phone] [place], [facility] Hem/Onc [address] [place] [phone] 03/27/2024 2:00 PM EST Office Visit Palliative Medicine [facility], [place] [address] [place], [place] [phone] Ellis Rangel MD [facility] [address] [place], [place] [phone] 03/27/2024 3:00 PM EST Office Visit Radiation Oncology, [place] [address] [place], [place] [phone] Torres Gaona MD [facility] [address] [place], [place] [phone] 04/04/2024 9:00 AM EST Office Visit Hematology Oncology [facility], [address] [address] Huang Joe MD [facility] [address] [place], [place] [phone] Health Maintenance Due Date Last Done Comments COVID-19 Vaccine (#1) 10/14/1988 Depression Screening 1995 Influenza Vaccine (FLU shot) (#1) 2023 documented as of this encounter Medical Devices Implanted Type Area Director Economic Device Identifier Shelf Expiration Date Model / Serial / Lot Valve Program Certal Pls - [id number] Implanted:Qty: 1 on 02/13/2024 by Oswaldo Rehman MD at [facility] Right: Head [employer] [place] [id number] 10/13/2028 [id number] / / [id number] Cath Vent Bactiseal 701800 - [id number] Implanted:Qty: 1 on 02/13/2024 by Oswaldo Rehman MD at [facility] Right: Head [employer] JENNIFER [id number] 11/12/2024 82-3072 / / [id number] Valve Program Certal Pls - [id number] Implanted:Qty: 1 on 02/13/2024 by Oswaldo Rehman MD [place] [facility] [place]: Head [employer] [place] [id number] 10/13/2028 [id number] / / [id number] documented as of this encounter Advance Directives [...] Advance Directives occurred with: Patient Care Teams Rehab Liaison Relationship Specialty Start Date End Date Gwendolyn Han MD [address] [facility] [place] [address] PCP - General Hematology/Oncology 12/15/23 documented as of this encounter
--- OUTSIDE RECORDS SUMMARY | 2024-04-16 15:07 | External Medical Summary | Summary of Care ---
Author Name Unknown Organization [facility] Address [address] [place] [address] Phone [phone] Care Team Providers Care Focuser Name Role Phone Gwendolyn Han MD Primary Care Provider [phone] Reason for Visit * Reason Comments Research Screening Encounter Details Date Type Department Care Team (Late st Contact Info) Description 03/25/2024 Documentation Hematology Oncology [facility], [place] [address] [place] [address] [place], [facility] Office Hem Onc [address] [place] [address] Allergies Active Allergy Reactions Criticality Noted Date Comments Heparin Unknown 02/22/2024 Per patient - cannot have Heparin as it contains a pork product. Please do not use heparin for port flush. documented as of this encounter (statuses as of 03/25/2024) Medications Glucosamine-Chondro itin Max St Oral Capsule [...] as of this encounter (statuses as of 03/25/2024) Active Problems Patient Care Coordination No te [...] as of this encounter (statuses as of 03/25/2024) Resolved Problems Problem Noted Date Diagnosed Date Resolved Date Obstructive hydrocephalus 02/04/2024 documented as of this encounter (statuses as of 03/25/2024) Social History Tobacco Use Types Packs/Day Years [...] documented in this encounter Miscellaneous Notes * Research Note - Preeti Bravo RN - 03/25/2024 10:34 AM EST At the request of Dr. Joe, this patient has been screened for possible clinical trials options for their diagnosis. There are no clinical trials available at this time for this patient. Patient screened by Preeti Bravo, MSN, RN, CCRN, CNL Oncology Clinical Research Coordinator II [facility] Department of Hem/Onc Research [facility] documented in this encounter Plan of Treatment Upcoming Encounters Date Type Department Care Team (Late st Contact Info) Description 03/26/2024 9:30 AM EST Telemedicine Psychology [facility], [address] [phone] Berry Goldberg PsyD [facility] [place]note 2] [address] [place], [place] [phone] 03/27/2024 10:45 AM EST Nurse Only Hematology Oncology [facility], [address] [phone] [place], Nurse Lab Hem/Onc [address] [place] [phone] 03/27/2024 11:30 AM EST Office Visit Hematology Oncology [facility], [address] [phone] Lynda Mendez CRNP [facility] [place][note 2] [place] [address] 03/27/2024 12:00 PM EST Hem/Onc Treatment Hematology Oncology [facility], [address] [address] [place], Chair [address] Hem/Onc [address] [place] [phone] 03/27/2024 2:00 PM EST Office Visit Palliative Medicine [facility], [address] [phone] Ellis Rangel MD [facility] [place][note 2] [address] [place], [place] [phone] 03/27/2024 3:00 PM EST Office Visit Radiation Oncology, [address] [phone] Torres Gaona MD [facility] [place][note 2] [place] [address] 04/03/2024 11:45 AM EST Pharmacy Pharmacy Hematology Oncology [address] [address] [facility] [place] Hem/Onc [address] [place] [phone] 04/04/2024 9:00 AM EST Office Visit Hematology Oncology [facility], [address] [phone] Huang Joe MD [address] [place] [address] Health Maintenance Due Date Last Done Comments COVID-19 Vaccine (#1) 10/14/1988 Depression Screening 1995 Influenza Vaccine (FLU shot) (#1) 2023 documented as of this encounter Medical Devices Implanted Type Area Salesperson [employer] Device Identifier Shelf Expiration Date Model / Serial / Lot Valve Program Certal Pls - [id number] Implanted:Qty: 1 on 02/13/2024 by Oswaldo Rehman MD at [facility] Right: Head [employer] [facility] [place] [id number] 10/13/2028 [id number] / / [id number] Cath Vent Bactiseal [id number] - [id number] Implanted:Qty: 1 on 02/13/2024 by Oswaldo Rehman MD at [facility] [place] Right: Head [employer] [facility] [place] [id number] 11/12/2024 82-3072 / / [id number] Valve Program Certal Pls - [id number] Implanted:Qty: 1 on 02/13/2024 by Oswaldo Rehman MD at [facility] Right: Head [employer] [facility] [place] [id number] 10/13/2028 [id number] / / [id number] Marker Site Biopsy - [id number] Implanted:Qty: 1 on 03/19/2024 at [facility] Digital [employer] COREY MOBLEY 2S-13 / / documented as of this [...] Advance Directives occurred with: Patient Care Teams Focuser Relationship Specialty Start Date End Date Gwendolyn Han MD [address] [place] [facility] [place] [address] PCP - General Hematology/Oncology 12/15/23 documented as of this encounter
--- OUTSIDE RECORDS SUMMARY | 2024-04-16 15:07 | External Medical Summary | Summary of Care ---
Author Name Unknown Organization [facility] Address [address] [place] [address] Phone [phone] Care Team Providers Care Roving Teller Name Role Phone Gwendolyn Han MD Primary Care Provider [phone] Reason for Visit * Reason Comments NEW PATIENT Encounter Details Date Type Department Care Team (Late st Contact Info) Description 03/15/2024 10:00 AM EST Office Visit Hematology Oncology 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 Please do not use heparin for port flush. documented as of this encounter (statuses as of 03/17/2024) Medications Glucosamine-Chondro itin Max St Oral Capsule [...] as of this encounter (statuses as of 03/17/2024) Active Problems Patient Care Coordination No te [...] as of this encounter (statuses as of 03/17/2024) Resolved Problems Problem Noted Date Diagnosed Date Resolved Date Obstructive hydrocephalus 02/04/2024 documented as of this encounter (statuses as of 03/17/2024) Social History Tobacco Use Types Packs/Day Years [...] Sign Reading Time Taken Comments Blood Pressure 106/70 03/15/2024 9:45 AM EST Pulse 87 03/15/2024 9:37 AM EST Temperature 36 C (96.8 F) 03/15/2024 9:37 AM EST Respiratory Rate 16 03/15/2024 9:37 AM EST Oxygen Saturation 100% 03/15/2024 9:37 AM EST RA Inhaled Oxygen Concentration - - Weight 57.4 kg (126 lb 9.6 oz) 03/15/2024 9:37 A M EST Height 167.6 cm (5' 5.98") 03/15/2024 9:37 AM ES T Body Mass Index 20.44 03/15/2024 9:37 AM EST documented in this encounter Functional [...] documented in this encounter Progress Notes * Che Francisco MD - 03/15/2024 4:50 PM EST Images from the original note were not included. HEMATOLOGY/MEDICAL ONCOLOGY Follow up Encounter Note PATIENT NAME: Padmaja Burris Date of Service: 03/15/2024 Status: Progressive Disease Oncological diagnosis Metastatic breast cancer stage IV at diagnosis with extensive bony metastasis diagnosed during . Terminated at 7 weeks. ER+ID+HER2+(03/2021) Multiple brain metastasis likley in the setting of breast cancer with obstructive hydrocephalus s/pVP shunt as declined surgical resection (01/2024) Treatments rendered Palliative XRT, 1 fraction (800cGy) to the lumbar spine and sacrum (04/13/2021). Palliative Systemic TX with THP [docetaxel, trastuzumab, and pertuzumab] x 6 cycles (04/21/21 - 08/04/2021) Maintenance Phesgo (Trastuzumab/pertuzumab SQ) (08/26/2021- )---> Pt requested to stop because she desired .---> Resumed again (02/01/2023- Nov 2023)--> Stopped again for plans. 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 Right Breast Biopsy Pathology 09/01/22: BREAST, RIGHT, 1 O'CLOCK, CORE BIOPSY ([id number]; 03/29/2021; 11 Slides): Invasive mammary carcinoma with ductal and lobular features, grade 3. Biomarkers: ER: Positive, 90%, 2+, ID: Positive, 10- 20%, 1-2+, HER2 (IHC): Positive, [...] mg every 3 months (Breast Cancer/Ovarian Suppression) [id number] Plan Provider: Huang Joe MD Treatment goal: Supportive Line of treatment: [No plan line of treatment] 03/04/2024 - Chemotherapy TUCATINIB-CAPECITABINE (BREAST) [id number] 03/15/2024 - Supportive Therapy SCP - XGEVA [id number] Plan Provider: Huang Joe MD Treatment goal: Supportive Line of treatment: [No plan line of treatment] 03/18/2024 - Supportive Therapy SCP - HYDRATION [id number] Plan Provider: Alicia Murillo MD Treatment goal: Supportive Line of treatment: [No plan line of treatment] 03/27/2024 - Chemotherapy trastuzumab-xxxx 8 mg/kg followed by 6 mg/kg (6 Cycles/3 weeks) [id number] HPI : Summary of events per Dr. Han note from [facility] and updated as appropriate 1.She had presented to her PCP on 03/22/2021 with chest pain, right breast tenderness and positive test. She was 7 weeks when the breast cancer diagnosis was confirmed. wasterminated to start breast cancer treatment. 2. CT [...] grade 3 invasive ductal carcinoma, ER Positive, ID Positive and HER2/codi Positive by IHC with Ki-67 of 60% . 5. Right axillary LN biopsy on 04/02/21 was positive for metastatic disease. 6. She was evaluated by Dr. Aneta Perez of breast oncology at [facility] on 04/08/21 who discussed treatment options in the setting of . 7. Seen at [facility] on 04/09/2021. Discussed treatment options at that time. Patient declined termination. Complained of severe upper and lower back pain. 8. Admitted to [facility] on 04/06/2021 with intractable lower back pain. [...] received Cycle 1 of trastuzumab/Pertuzumab and Xgeva Bone biopsy on 04/20/2021 confirmed metastatic carcinoma [...] high grade DCIS ER Positive (moderate staining-75%), ID Positive (weak staining-2%) 26. Presented to ER on 01/23/2024 with headache, dizziness, difficulty walking. MR I brain review multiple metastatic lesions transferred to [facility] for surgical evaluation. Multiple discussions from the team of Neurosurgery, Radiation Oncology and Medical Oncology. Discharged home without intervention as per the patient wishes 27. Presented to ER again on 02/04/2024 with increased headaches, vomiting, dizziness. 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 Treated with steroids and mannitol. Underwent MORTGAGE BROKER shunt placement She followed multiple physicians from different facilities which includes [facility], [facility], [facility], SARAH at [facility]. ECOG Performance Status: (1) Restricted in physically strenuous activity, ambulatory and able to do work of light nature Chief Complaint: Chief Complaint Patient presents with NEW PATIENT Interval history: Padmaja Burris is a 38 year old female who presents today as a sick visit and toxicity check. Accompanied by . Significant amount of time spent in answering the same questions multiple times. Voices understanding, continues to ask similar questions. Patient noted to have increased amount of nausea and vomiting after the day of trastuzumab. Symptoms improved after IV hydration and IV antiemetic in the ER last week. Currently she denies any nauseaor vomiting. She took only 2 days of Xeloda and tucatinib starting next day of trastuzumab and not taking it until today. Generalized headache, describes as very mild. Denies any blurry vision, seizure activity, bowel or bladder incontinence, weakness on 1 side of the body, slurred speech, sensation changes. She did not start dexamethasone, believes nausea is mainly related to trastuzumab. Worried about pill burden with capecitabine and tucatinib. Offered supportive medications for nausea which she refuses because of pill burden. Discussed about omitting 150 mg of capecitabine. She wants to take minimum probably 1 tablet a day or no pills at all. Recommended but she should be taking the prescribed dose to have affective treatment. Reducing the treatment dose can be ineffective. Requesting to have IV hydration near to home. 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) 01/23/2024 Past Surgical History: Past Surgical History: Procedure Laterality Date BREAST BIOPSY Right 03/2021 her 2 + BREAST BIOPSY Right 09/2023 dcis CHEMOTHERAPY Right 2021 CREATE BRAIN CAVITY SHUNT Right 02/13/2024 CREATION SHUNT VENTRICULO PERITONEAL OR PLEURAL performed by Oswaldo Rehman MD at [facility] RADIATION THERAPY radiation to lower back 2021 STEREOTACTIC CRANIAL INTRADURAL NAVIGATION Right 02/13/2024 STEREOTACTIC CRANIAL INTRADURAL NAVIGATION performed by Oswaldo Rehman MD at [facility] Current Medications: Current Outpatient Medications Medication Sig Dispense Refill [...] evening. (Patient not taking: Reported on 03/15/2024) No current facility-administered medications for this visit. Allergies: Review of patient's allergies indicates: Allergen Reactions Heparin Unknown Per patient - cannot have Heparin as it contains a pork product. Please do not use heparin for portflush. Family History: Family History Problem Relation Name Age of Onset Cancer Uncle (Maternal) ? spleen cancer Breast Cancer No significant family history Social History: Social History Tobacco Use Smoking status: Never Substance Use Topics Alcohol use: Never Drug use: Never Review of Systems: Negative except as mentioned above Physical Examination: BP 106/70 | Pulse 87 | Temp 36 C (96.8 F) (Tympanic) | Resp 16 | Ht 1.676 m (5' 5.98") | Wt 57.4 kg (126 lb 9.6 oz) | LMP 02/10/2024 | SpO2 100% Comment: RA | BMI 20.44 kg/m | BSA 1.63 m Constitutional: no acute distress Eyes: sclera and conjunctiva normal HEENT: moist mucous membranes. No oral mucosal ulceration. CV: S1, S2 positive Chest: normal respiratory effort on room air, chest rise symmetrical. Abdomen: Nondistended Extremities: No edema Skin: warm, dry, intact Neuro: Alert, oriented to time place and person. Moving extremities. No significant gait changes. Psych: normal mood and affect, normal insight Laboratory Review: Results for orders placed or performed in visit on 03/15/24 COMPREHENSIVE METABOLIC PANEL Result Value Ref Range BUN 8 6 - 20 mg/dL CREATININE 0.4 (L) 0.5 - 1.0 mg/dL EGFR >90 >=60 mL/min SODIUM 140 135 - 146 mmol/L POTASSIUM 3.8 3.5 - 5.1 mmol/L CHLORIDE 105 98 - 107 mmol/L CO2 26 22 - 32 mmol/L ANION GAP 9 7 - 15 mmol/L GLUCOSE 108 70 - 120 mg/dL Albumin 4.2 3.8 - 5.0 g/dL AST 31 10 - 35 U/L Alkaline Phosphatase 41 35 - 130 U/L Bilirubin, Total 0.2 <=1.2 mg/dL CALCIUM 8.8 8.4 - 10.2 mg/dL Protein 6.6 6.0 - 8.3 g/dL ALT 35 10 - 35 U/L CBC Result Value Ref Range WBC 4.46 4.00 - 10.80 K/uL RBC 3.85 3.85 - 5.15 M/uL HGB 11.6 (L) 12.0 - 15.3 g/dL HCT 34.9 (L) 36.0 - 45.2 % MCV 90.6 81.5 - 97.5 fL MCH 30.1 27.0 - 34.0 pg MCHC 33.2 32.0 - 36.0 g/dL RDW 13.4 11.5 - 15.5 % PLT 311 140 - 400 K/uL MPV 8.3 6.6 - 11.1 fL nRBCs 0 <=0 /100 WBCs DIFFERENTIAL, AUTOMATED Result Value Ref Range WBC 4.46 4.00 - 10.80 K/uL Neutrophils % 53.2 40.0 - 75.0 % Lymphocytes % 32.7 18.0 - 42.0 % Monocytes % 11.7 (H) 1.0 - 11.0 % Eosinophils % 1.1 0.0 - 6.0 % Basophils % 0.4 0.0 - 2.0 % Immature Granulocytes % 0.9 0.0 - 2.0 % Absolute Neutrophils 2.37 1.80 - 7.70 K/uL Absolute Lymphocytes 1.46 1.00 - 4.80 K/ul Absolute Monocytes 0.52 0.00 - 1.10 K/uL Absolute Eosinophils 0.05 0.00 - 0.70 K/uL Absolute Basophils 0.02 0.00 - 0.20 K/uL Absolute Immature Granulocytes 0.04 0.00 - 0.20 K/uL Radiology Review: As above Pathology Review: As above Impression and plan Padmaja Burris 38 y/o female Metastatic breast cancer stage IV at diagnosis with extensive bony metastasis diagnosed during . Terminated at 7 weeks. ER+ID+HER2+(03/2021) 2. Multiple brain metastasis josefinaley in the setting of breast cancer with obstructive hydrocephalus s/p MORTGAGE BROKER shunt as declined surgical resection (01/2024) Multiple issues discussed today as stated below Nausea, vomiting and dehydration Multifactorial with chemotherapy, brain metastasis. Trastuzumab has a minimal emetogenic potential,patient noted to have significant nausea and vomiting even before starting Xeloda and tucatinib. Discussed brain Mets could be causing the symptoms and the need for steroids which can control not only nausea but also edema surrounding the brain metastasis. Patient and strongly believes her nausea is related to only chemotherapy. Does not want to start any steroids. Encouraged to take scheduled Zofran, does not want to have pill burden. Prefers to take it as needed Discussed about olanzapine, willing to try but not completely sure. Prescription sent discussed theside effects of olanzapine which includes but not limited to angioedema, drowsiness, unusual behavior/movement disorder. Requesting IV hydration closer to home, trying to arrange IV hydration, IV Zofran as needed at [place] weekly starting Monday. Discussed this center can provide only hydration and antiemetic asneeded, still need to follow up here for any sick visit, toxicity checks.. 2. Metastatic breast cancer ER+ HER2+ 3. Multiple brain metastasis likely in the setting of HER2+ breast cancer Continues to refuse surgical resection and also biopsy from metastatic brain lesion. Left-sided breast biopsy from other hospital reviewed again in detail. This does not correlate withthe patient history and records indicate that this is from a different patient. Currently right breast biopsy suggestive of DCIS. HER 2 testing not usually done with DCIS However we do not have any slides available, requested all the slides to be reviewed here and currently in process. Patient wanted to discuss the need for right-sided breast biopsy with us and rescheduled for next week. As recurrent working on the pathology to get steroids from the outside hospital and with overwhelmed symptom burden, ER visits deferring this procedure for now. However it was proven that the left-sided biopsy that was in the chart was not from the patient. Currently the diagnosis is highly suspicious for HER2 + breast cancer. Most reliable information can be yield with brain biopsy which the patient is refusing. Patient also voices concern about the Pill burden with capecitabine and tucatinib. Total of 6 pillstwice daily for chemotherapy. Can dose reduce capecitabine to 1500 mg, which can count to 3 tabletsof capecitabine(500 mg each). Patient wants to see how much she can tolerate and is going to take as much as she can tolerate . Understands risks of inappropriate dosing and discussed recommended dose as above. If unable to tolerate oral chemo, then need to consider alternative treatments. Enhertu can considered as it has shown benefit with HER 2+ and HER2 low disease. For now continue treatments with trastuzumab, capecitabine and tucatinib. [facility] pharmacy follow up onay. Discuss with Dr. Joe if need to continue same treatments vs alternate treatment based onhow she tolerates questions discrepancy in tumor markers from [facility]. Currently with measurable disease, need to have imaging follow up to look for response of disease and tumor markers by itself unlikely to manager utilization management. Trend tumor markers from our lab 4.Osseus metastasis with breast cancer Xgeva monthly. Dose today 5. counseling Understands temp urgent side effects of current chemotherapy, recommended against testing with each cycle of chemotherapy 6. Brain metastasis with history of obstructive Hydrocephalus s/p MORTGAGE BROKER shunt Refusing steroids as above Patient doesn't want to consider surgical surgical resection for symptomatic brain metastasis.. She request a call from Dr. Dennis Goetz, per patient involved during her surgicalprocedure. She wants to discuss with him about her current clinical situation. She also wants to discuss chemotherapy pill burden with . Discussed that Neurosurgery will not be able to comment on chemotherapy dosing. Patient and insisting on contacting neurosurgery. They continue to refuse surgery but stillwants to talk to in particular. Offered to discuss with Neurosurgery attending but theyinsist on talking to only , neurosurgery resident. Staff message sent informing patient requesting a call. Che Francisco MD Hematology/Oncology Fellow This note was completed using the dictation program Fluency Direct. As such, there may be misspellings, word substitutions, or other variations that should not change the essence of the clinical content of this encounter note. If there is need for further clarification, please direct questions to the provider listed above. The patient was seen and discussed with Dr. Murillo , attending physician. >135 minutes spent in discussion, answering questions. Cosigned by Alicia Murillo MD at 03/17/2024 10:06 PM EST Associated attestation - Alicia Murillo MD - 03/17/2024 10:06 PM EST I have discussed the patient's management with the medical trainee and agree with the note. Please refer to the documented findings and plan of care. This patient's visit today consisted of an evaluation. I was present and confirmed the findings of the history and exam. I met with Ms. Burris and her as a sick visit today as Dr Joe is away. There have been numerous messages/telephone encounters since she was last seen in clinic- In terms of current symptoms , she has reported difficulty with nausea, appetite and pill burden- the nausea was reported in the hospital, and after Herceptin and again after starting capecitabine/tucatanib. We have expressed concern that the nausea which predated start of her oral chemotherapy is in part due to her brain mets and she has been advised to start steroids, also advised to have ED evaluation via phone calls from staff prior to todays visit- she has declined this. I attempted to discuss strategies for taking current treatment and supportive medication, however multiple times during visit she requested me to get the advise of other physicians she feels more comfortable with, namely Dr Dennis Goetz (neuro surgery) and Dr Joe. She feels Dr Goetz can best speak for her and advise us on cancer treatments- at her request we sent a message to Dr Goetz but as he is not an oncologist we advised it would be unlikely he would have advise on her chemotherapy - we also discussed Dr Joe is away and we can discuss with him on his return. She was eventually willing to add low dose olanzapine in the evening to help with appetite and nausea and to attempt restarting her oral chemotherapy- If she is unable to comply because of pill burden then an alternative regimen may be needed- we will arrange with her to meet with Dr Joe on his return, and continue following with [facility] pharmacy for now. We will set her up with IV fluids next week in [facility] on Monday, if this is helpful for her then we can consider having a standing/weekly appointment Finally her case was reviewed at [facility] earlier this week, I was present for discussion- Main reason for discussion was to discuss path however at the meeting her path from [facility] was not yet received- I discussed with Dr Joe prior to the meeting and there were reports of a recent biopsy 09/2023 that was received with her medical records that reported HR+/HER2 - breast cancer, we wanted this pathology to be reviewed because currently the burden of her disease is in her brain mets and she has adamantly declined biopsy or resection of any of these lesions. On further review of the scanned documents it appears this is an error and another path report was mixed in with her records. > 45 minutes spent on date of service Ms. Burris- time spent reviewing records, labs, provider notes, documentation and direct patient care. Continuity of care required: patient with a single highrisk disease/chronic medical conditions which require follow-up in clinic less than 12 months to address medical issues, potential complications, health care needs which are related to diagnosis metas tatic breast cancer. Alicia Murillo MD documented in this encounter Nursing Notes * Artem Chan, MED ASSIST - 03/15/2024 9:44 AM EST Patient was instructed to not get up on the exam table/exam chair until directed and assisted by their provider; patient is to remain seated in the chair/ wheelchair/ exam table/ exam chair for fall prevention and safety reasons. Patient is aware to have assistance to step down off exam table/exam chair with personnel. Patient voiced full comprehension of instructions. Room 14 documented in this encounter Plan of Treatment Upcoming Encounters Date Type Department Care Team (Late st Contact Info) Description 03/18/2024 11:45 AM EST Pharmacy Pharmacy Hematology Oncology [address] [address] [facility] Hem/Onc [address] [place] [address] 03/18/2024 2:30 PM EST Hem/Onc Treatment Hematology/Oncology Treatment, [place] [address] [place] [phone] Eloisa, Chair 9 Hem Onc Scenery [address] [place] [address] 03/26/2024 9:30 AM EST Telemedicine Psychology [facility], [address] [phone] Berry Goldberg PsyD [address] [place] [phone] 03/27/2024 10:45 AM EST Nurse Only Hematology Oncology [facility], [address] [phone] Eulogio, Nurse Lab Hem/Onc [address] [place] [phone] 03/27/2024 11:30 AM EST Office Visit Hematology Oncology [address] [phone] Lynda Mendez CRNP [address], [place] [phone] 03/27/2024 12:00 PM EST Hem/Onc Treatment Hematology Oncology [facility], [place] [address], [place] [phone] [place], 15 Hem/Onc [facility] [address], [place] [phone] 03/27/2024 2:00 PM EST Office Visit Palliative Medicine [facility], [address] [phone] Ellis Rangel MD [facility] [address], [place] [phone] 03/27/2024 3:00 PM EST Office Visit Radiation Oncology, [address] [phone] Torres Gaona MD [facility] [address], [place] [phone] 04/04/2024 9:00 AM EST Office Visit Hematology Oncology [facility], [address] [address] Huang oJe MD [facility] [place] [address] Health Maintenance Due Date Last Done Comments COVID-19 Vaccine (#1) 10/14/1988 Depression Screening 1995 Influenza Vaccine (FLU shot) (#1) 2023 documented as of this encounter Medical Devices Implanted Type Area Strategic Accounts Manager Device Identifier Shelf Expiration Date Model / Serial / Lot Valve Program Certal Pls - [id number] Implanted:Qty: 1 on 02/13/2024 by Oswaldo Rehman MD at [facility] Right: Head [employer] [id number] 10/13/2028 [id number] / / [id number] Cath Vent Bactiseal [id number] - [id number] Implanted:Qty: 1 on 02/13/2024 by Oswaldo Rehman MD at [facility] Right: Head [employer] JENNIFER [id number] 11/12/2024 [id number] / / [id number] Valve Program Certal Pls - [id number] Implanted:Qty: 1 on 02/13/2024 by Oswaldo Rehman MD at [facility] Right: Head [employer] JENNIFER [id number] 10/13/2028 [id number] / / [id number] documented as of this encounter Visit Diagnoses [...] Advance Directives occurred with: Patient Care Teams Roving Teller Relationship Specialty Start Date End Date Gwendolyn Han MD [address] [facility] [place] [address] PCP - General Hematology/Oncology 12/15/23 documented as of this encounter
--- OUTSIDE RECORDS SUMMARY | 2024-04-16 15:08 | External Medical Summary | Summary of Care ---
Author Name Unknown Organization [facility] Address [address] [place] [address] Phone [phone] Care Team Providers Care Tire Balancer Name Role Phone Gwendolyn Han MD Primary Care Provider [phone] Encounter Details Date Type Department Care Team (Late st Contact Info) Description 03/15/2024 9:15 AM EST Nurse Only Hematology Oncology [facility] [place] [address] [place], [place] [phone] [place], Nurse Lab Hem/Onc [address] [place] [address] Arrived Allergies Active Allergy Reactions [...] note/APR. Problem Noted Date Diagnosed Date Metastasis from [...] 11:45 AM EST Pharmacy Pharmacy Hematology Oncology [address] [address] [facility] [place] Hem/Onc [address] [place] [address] 03/26/2024 9:30 AM EST Telemedicine Psychology [address] [address] Berry Goldberg PsyD [address] [place] [address] 03/27/2024 10:45 AM EST Nurse Only Hematology Oncology [address] [place] [address] [place], Nurse Lab Hem/Onc [address] [place] [address] [phone] 03/27/2024 11:30 AM EST Office Visit Hematology Oncology [facility], [address] [address] Lynda Mendez CRNP [address] [place], [place] [phone] 03/27/2024 12:00 PM EST Hem/Onc Treatment Hematology Oncology [facility], [address] [phone] [place], Chair 15 Hem/Onc [address] [place] [address] [phone] Health Maintenance Due Date Last Done Comments COVID-19 Vaccine (#1) 10/14/1988 Depression Screening 1995 Influenza Vaccine (FLU shot) (#1) 2023 documented as of this encounter Medical Devices Implanted Type Area Power Nut Runner Operator Device Identifier Shelf Expiration Date Model / Serial / Lot Valve Program Certal Pls - [id number] Implanted:Qty: 1 on 02/13/2024 by [place]aldo [place] [facility] [employer] Park[employer] JENNIFER [id number] 10/13/2028 [id number] / / [id number] Cath Vent Bactiseal [id number] - [id number] Implanted:Qty: 1 on 02/13/2024 by Oswaldo Rehman MD [place] [facility] Head [employer] Dynamic Social Network [employer] JENNIFER [id number] 11/12/2024 [id number] / / [id number] Valve Program Certal Pls - [id number] Implanted:Qty: 1 on 02/13/2024 by Oswaldo Rehman MD [place] [facility] [place] Head [employer] frenting [id number] 10/13/2028 [id number] / / [id number] documented as of this encounter Procedures Procedure Name Priority Date/Time Associated Diagnosis Comments DIFFERENTIAL, AUTOMATED STAT 03/15/2024 9:32 AM EST 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) Stage IV breast cancer in female (HCC) COMPREHENSIVE METABOLIC PANEL STAT 03/15/2024 9:32 AM EST 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) CBC STAT 03/15/2024 9:32 AM EST 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) Stage IV breast cancer in female (HCC) CBC STAT 03/15/2024 9:32 AM EST 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) Stage IV breast cancer in female (HCC) documented in this encounter Results * (ABNORMAL) DIFFERENTIAL, AUTOMATED (03/15/2024 9:32 AM EST) WBC 4.46 4.00 - 10.80 K/uL 03/15/2024 9:37 AM EST LABORATORY [facility] Neutrophils % 53.2 40.0 - 75.0 % 03/15/2024 9:37 AM EST LABORATORY [facility] Lymphocytes % 32.7 18.0 - 42.0 % 03/15/2024 9:37 AM EST LABORATORY [facility] Monocytes % 11.7(H) 1.0 - 11.0 % 03/15/2024 9:37 AM EST LABORATORY [facility] Eosinophils % 1.1 0.0 - 6.0 % 03/15/2024 9:37 AM EST LABORATORY [facility] Basophils % 0.4 0.0 - 2.0 % 03/15/2024 9:37 AM EST LABORATORY [facility] Immature Granulocytes % 0.9 0.0 - 2.0 % 03/15/2024 9:37 AM EST LAB[facility]ATORY [facility] Absolute Neutrophils 2.37 1.80 - 7.70 K/uL 03/15/2024 9:37 AM EST LAB[facility]ATORY [facility] Absolute Lymphocytes 1.46 1.00 - 4.80 K/ul 03/15/2024 9:37 AM EST LAB[facility]ATORY [facility] Absolute Monocytes 0.52 0.00 - 1.10 K/uL 03/15/2024 9:37 AM EST LABORATORY [facility] Absolute Eosinophils 0.05 0.00 - 0.70 K/uL 03/15/2024 9:37 AM EST LABORATORY [facility] Absolute Basophils 0.02 0.00 - 0.20 K/uL 03/15/2024 9:37 AM EST LABORATORY [facility] Absolute Immature Granulocytes 0.04 0.00 - 0.20 K/uL 03/15/2024 9:37 AM EST LABORATORY [facility] Blood Blood sample taken from central line / Unknown Central Line / Unknown 03/15/2024 9:32 AM EST 03/15/2024 9:34 AM EST Huang Joe MD LAB BLOOD ORDERABLE S Final Result LABORATORY [facility] [address] [place] [address] * (ABNORMAL) CBC (03/15/2024 9:32 AM EST) WBC 4.46 4.00 - 10.80 K/uL 03/15/2024 9:37 AM EST LAB[facility]ATORY [facility] RBC 3.85 3.85 - 5.15 M/uL 03/15/2024 9:37 AM EST LAB[facility]ORY [facility] HGB 11.6(L) 12.0 - 15.3 g/dL 03/15/2024 9:37 AM EST LAB[facility]ATORY [facility] HCT 34.9(L) 36.0 - 45.2 % 03/15/2024 9:37 AM EST LAB[facility]ORY [facility] MCV 90.6 81.5 - 97.5 fL 03/15/2024 9:37 AM EST LAB[facility]ATORY [facility] MCH 30.1 27.0 - 34.0 pg 03/15/2024 9:37 AM EST LAB[facility]ATORY [facility] MCHC 33.2 32.0 - 36.0 g/dL 03/15/2024 9:37 AM EST LAB[facility]ATORY [facility] RDW 13.4 11.5 - 15.5 % 03/15/2024 9:37 AM EST LAB[facility]ATORY [facility] PLT 311 140 - 400 K/uL 03/15/2024 9:37 AM EST LAB[facility]ATORY [facility] MPV 8.3 6.6 - 11.1 fL 03/15/2024 9:37 AM EST LAB[facility]ATORY [facility] nRBCs 0 <=0 /100 WBCs 03/15/2024 9:37 AM EST LAB[facility]ATORY [facility] Blood Blood sample taken from central line / Unknown Central Line / Unknown 03/15/2024 9:32 AM EST 03/15/2024 9:34 AM EST us Huang Joe MD LAB BLOOD ORDERABLE S Final Result LAB[facility]ATORY [facility] [address] [place] [address] * (ABNORMAL) COMPREHENSIVE METABOLIC PANEL (03/15/2024 9:32 AM EST) BUN 8 6 - 20 mg/dL 03/15/2024 10:09 AM EST LABORATORY [facility] CREATININE 0.4(L) 0.5 - 1.0 mg/dL 03/15/2024 10:09 AM EST LAB[facility]ATORY [facility] EGFR >90 >=60 mL/min 03/15/2024 10:09 AM EST [facility] Comment:eGFR is calculated b ased on the CKD-EPI 2020 equation. SODIUM 140 135 - 146 mmol/L 03/15/2024 10:09 AM EST LAB[facility]ATORY [facility] POTASSIUM 3.8 3.5 - 5.1 mmol/L 03/15/2024 10:09 AM EST LAB[facility] CHLORIDE 105 98 - 107 mmol/L 03/15/2024 10:09 AM EST [facility] CO2 26 22 - 32 mmol/L 03/15/2024 10:09 AM EST [facility] ANION GAP 9 7 - 15 mmol/L 03/15/2024 10:09 AM EST LAB[facility] GLUCOSE 108 70 - 120 mg/dL 03/15/2024 10:09 AM EST [facility] Albumin 4.2 3.8 - 5.0 g/dL 03/15/2024 10:09 AM EST [facility] AST 31 10 - 35 U/L 03/15/2024 10:09 AM EST [facility] Alkaline Phosphatase 41 35 - 130 U/L 03/15/2024 10:09 AM EST [facility] Bilirubin, Total 0.2 <=1.2 mg/dL 03/15/2024 10:09 AM EST [facility] CALCIUM 8.8 8.4 - 10.2 mg/dL 03/15/2024 10:09 AM EST [facility] Protein 6.6 6.0 - 8.3 g/dL 03/15/2024 10:09 AM EST [facility] ALT 35 10 - 35 U/L 03/15/2024 10:09 AM EST LAB[facility] Blood Blood sample taken from central line / Unknown Central Line / Unknown 03/15/2024 9:32 AM EST 03/15/2024 9:38 AM EST us Huang Joe MD LAB BLOOD ORDERABLE S Final Result [facility] [address] [place] [address] documented in this encounter Visit Diagnoses Diagnosis [...] Advance Directives occurred with: Patient Care Teams Tire Balancer Relationship Specialty Start Date End Date Gwendolyn Han MD [address] [place] [facility] [place] [address] PCP - General Hematology/Oncology 12/15/23 documented as of this encounter
--- OUTSIDE RECORDS SUMMARY | 2024-04-16 15:08 | External Medical Summary | Summary of Care ---
Author Name Unknown Organization [facility] Address [address] [place] [address] Phone [phone] Care Team Providers Care Gun Sealing Machine Operator Name Role Phone Gwendolyn Han MD Primary Care Provider [phone] Reason for Visit * Reason Onset Date Comments Medication Administration 03/14/2024 Encounter Details Date Type Department Care Team (Late st Contact Info) Description 03/14/2024 Telephone Hematology Oncology [facility] [address] [place] [address] Che Francisco MD [address] [place] [address] Medication Administration Allergies Active Allergy Reactions Criticality Noted Date Comments Heparin Unknown 02/22/2024 Per patient - cannot have Heparin as it contains a pork product. Please do not use heparin for port flush. documented as of this encounter (statuses as of 03/14/2024) Medications Glucosamine-Chondro itin Max St Oral Capsule [...] as of this encounter (statuses as of 03/14/2024) Active Problems Patient Care Coordination No te [...] as of this encounter (statuses as of 03/14/2024) Resolved Problems Problem Noted Date Diagnosed Date Resolved Date Obstructive hydrocephalus 02/04/2024 documented as of this encounter (statuses as of 03/14/2024) Social History Tobacco Use Types Packs/Day Years [...] encounter Miscellaneous Notes * Telephone Encounter - Che Francisco MD - 03/14/2024 2:02 PM EST 03/13/2024 Patient is scheduled to have a right breast biopsy. Received a call that patient and wants to hold biopsy until discussion on 03/15/2024. Impression No mammographic evidence of malignancy within [...] biopsy appointment after consulting with her oncologist. Discussed recommendations [place] [facility] [place] . We prefer to have tissue sample from the brain which the patient refused to do. At this time there is no evidence of disease elsewhere except for PET avid right- sided breast mass. Tissue biopsy can be considered from this site to have pathological diagnosis. It will be helpful if this biopsy turn to be HER 2 positive. Patient voiced that report copied in the note may not her report as per discussion from [facility]. Our pathology is currently working on getting slides from other hospital. We can discuss this further during office visit on 03/15/2024. Patient is felling better in terms of nausea and vomiting after IV fluids and IV antiemetic in ER. She still have less intake and loss of appetite. She missed 4 days of oral capecitabine and tucatinib with nausea and vomiting. Patient wants to see if if she can resume capecitabine and tucatinib. Itshould be fine but of pharmacy is going to give a call back. We also discussed about making appointm ents with Palliative Medicine to co manage symptoms. Patient also need to make an appointment with Radiation Oncology. Patient did not attend the call from the pharmacy on 03/13/24. > 15 minutes of time spent to discuss and all questions answered to the patient 's satisfaction 03/14/2024 Discussed with the pharmacy today. Resume chemotherapy with capecitabine and Tucatinib. Assess tomorrow during the office visit. Plan to go with previous schedule of D1-D14 for capecitabine. Need to have a break for a week before resuming second cycle. Called the patient and today to discuss recommendations. No answer and left a voicemail to call back documented in this encounter Plan of Treatment Upcoming Encounters Date Type Department Care Team (Late st Contact Info) Description 03/15/2024 9:15 AM EST Nurse Only Hematology Oncology [address] [place] [address] [place], Nurse Lab Hem/Onc [address] [place], [place] [phone] 03/15/2024 10:00 AM EST Office Visit Hematology Oncology [facility], [place] [address] [place] [phone] Alicia Murillo MD [address] [place] [address] 03/15/2024 11:30 AM EST Immunization/Injection Hematology Oncology [place] [address] [place] [address] Nurse, Med 4 [address] [place], [place] [phone] 03/20/2024 11:45 AM EST Pharmacy Pharmacy [facility] Oncology [facility], [address] [address] [facility] Hem/Onc [address] [place] [address] 03/26/2024 9:30 AM EST Telemedicine Psychology [facility], [address] [phone] Berry Goldberg PsyD [address] [place], [place] [phone] 03/27/2024 10:45 AM EST Nurse Only Hematology Oncology [facility], [place] [address] [place], [place] [phone] [place], Nurse Lab Hem/Onc [address] [place], [place] [phone] 03/27/2024 11:30 AM EST Office Visit Hematology Oncology [facility], [place] [address] [place] [phone] Lynda Mendez CRNP [facility] [place] [address] 03/27/2024 12:00 PM EST Hem/Onc Treatment Hematology Oncology [facility], [place] [address] [place] [address] [place], Chair 15 Hem/Onc [address] [place] [address] Health Maintenance Due Date Last Done Comments COVID-19 Vaccine (#1) 10/14/1988 Depression Screening 1995 Influenza Vaccine (FLU shot) (#1) 2023 documented as of this encounter Medical Devices Implanted Type Area Certified Surgical Technologist Device Identifier Shelf Expiration Date Model / Serial / Lot Valve Program Certal Pls - [id number] Implanted:Qty: 1 on 02/13/2024 by Oswaldo Rehman MD at [place] [facility] [place] Right: Head [employer] Birdback[employer]ICall[employer] JENNIFER [id number] 10/13/2028 [id number] / / [id number] Cath Vent Bactiseal [id number] - [id number] Implanted:Qty: 1 on 02/13/2024 by Oswaldo Rehman MD at [place] [facility] [place] Right: Head [employer] JENNIFER [id number] 11/12/2024 82-3072 / / [id number] Valve Program Certal Pls - [id number] Implanted:Qty: 1 on 02/13/2024 by Oswaldo Rehman MD at [place] [facility] [place] Right: Head [employer] JENNIFER [id number] 10/13/2028 [id number] / / [id number] documented as of this encounter Advance Directives [...] Advance Directives occurred with: Patient Care Teams Gun Sealing Machine Operator Relationship Specialty Start Date End Date Gwendolyn Han MD [address] [facility], [place] [address] PCP - General Hematology/Oncology 12/15/23 documented as of this encounter
--- OUTSIDE RECORDS SUMMARY | 2024-04-16 15:08 | External Medical Summary ---
Author Name Unknown Address Unknown Organization K01:LABORATORY [facility] - [address] [facility] [address] Laboratory Report Ordering Provider Test Date Status JAVI FLORENCE 03/15/2024 09:32:44 Final Observation Date Value Abnormality Reference (Units ) Status BUN 03/15/2024 09:32:44 8 6-20 (mg/dL) Final Creatinine 03/15/2024 09:32:44 0.4 Below low normal 0.5-1.0 (mg/dL) Final Glomerular filtration rate/1.73 sq M.predicted [Volume Rate/Area] in Serum, Plasma or Blood by Creatinine-based formula (CKD-EPI) 03/15/2024 09:32:44 >90 >=60 (mL/min) Final eGFR is calculated based on the CKD-EPI 2020 equation. Sodium 03/15/2024 09:32:44 140 135-146 (m mol/L) Final Potassium 03/15/2024 09:32:44 3.8 3.5-5.1 (m mol/L) Final Cl 03/15/2024 09:32:44 105 98-107 (mm ol/L) Final CO2 03/15/2024 09:32:44 26 22-32 (mmo l/L) Final Anion gap 03/15/2024 09:32:44 9 7-15 (mmol /L) Final Glucose 03/15/2024 09:32:44 108 70-120 (mg /dL) Final Albumin 03/15/2024 09:32:44 4.2 3.8-5.0 (g /dL) Final AST (Aspartate aminotransferase) 03/15/2024 09:32:44 31 10-35 (U/L) Final Alk Phos 03/15/2024 09:32:44 41 35-130 (U/ L) Final Bilirubin, Total 03/15/2024 09:32:44 0.2 <=1 .2 (mg/dL) Final Calcium 03/15/2024 09:32:44 8.8 8.4-10.2 ( mg/dL) Final Protein 03/15/2024 09:32:44 6.6 6.0-8.3 (g /dL) Final ALT (Alanine aminotransferase) 03/15/2024 09:32:44 35 10-35 (U/L) Final Performing Location LABORATORY [facility] - [facility] N Elio Garcia. [facility] [address]
--- OUTSIDE RECORDS SUMMARY | 2024-04-16 15:08 | External Medical Summary | Summary of Care ---
Author Name Unknown Organization [facility] Address [address] [place] [address] Phone [phone] Care Team Providers Care Wind Turbine Engineer Name Role Phone Gwendolyn Han MD Primary Care Provider [phone] Reason for Visit * Reason Onset Date Comments Medication Administration 03/14/2024 Encounter Details Date Type Department Care Team (Late st Contact Info) Description 03/14/2024 Telephone Hematology Oncology [facility] [address] [place] [address] Che Francisco MD [address] [place] [address] Medication Administration Allergies Active Allergy [...] with her oncologist. Discussed recommendations from breast [facility] on Monday with patient . We prefer [...] 11:45 AM EST Pharmacy Pharmacy Hematology Oncology [address] [place] [address] [facility] [place] Hem/Onc [address] [place] [address] 03/18/2024 2:30 PM EST Hem/Onc Treatment Hematology/Oncology Treatment, [place] [address] [place] [address] [place], Chair 9 Hem Onc Scenery [address] [place] [address] 03/26/2024 9:30 AM EST Telemedicine Psychology [facility], [address] [address] Berry Goldberg PsyD [facility] [place] [address] 03/27/2024 10:45 AM EST Nurse Only Hematology Oncology [facility], [address] [address] [place], Nurse Lab Hem/Onc [address] [place] [address] 03/27/2024 11:30 AM EST Office Visit Hematology Oncology [facility], [address] [phone] Lynda Mendez CRNP [address] [place], [place] [phone] 03/27/2024 12:00 PM EST Hem/Onc Treatment Hematology Oncology [facility], [place] [address] [place] [address] [place], Chair 15 Hem/Onc [address] [place] [phone] 03/27/2024 2:00 PM EST Office Visit Palliative Medicine [facility], [address] [phone] Ellis Rangel MD [address] [place] [address] 03/27/2024 3:00 PM EST Office Visit Radiation Oncology, [place] [address] [place] [address] Torres Gaona MD [facility] [place] [address] 04/04/2024 9:00 AM EST Office Visit Hematology Oncology [facility], [place] [address] [place] [phone] Huang Joe MD [address] [place], [place] [phone] Health Maintenance Due Date Last Done Comments COVID-19 Vaccine (#1) 10/14/1988 Depression Screening 1995 Influenza Vaccine (FLU shot) (#1) 2023 documented as of this encounter Medical Devices Implanted Type Area Director Heart Device Identifier Shelf Expiration Date Model / Serial / Lot Valve Program Certal Pls - [id number] Implanted:Qty: 1 on 02/13/2024 by Oswaldo Rehman MD at OR [facility] Right: Head [employer] JENNIFER [id number] 10/13/2028 [id number] / / [id number] Cath Vent Bactiseal [id number] - [id number] Implanted:Qty: 1 on 02/13/2024 by Oswaldo Rehman MD at OR [facility] Right: Head [employer] JENNIFER [id number] 11/12/2024 82-3072 / / [id number] Valve Program Certal Pls - [id number] Implanted:Qty: 1 on 02/13/2024 by Oswaldo Rehman MD at OR [facility] Right: Head [employer] JENNIFER [id number] 10/13/2028 [id number] / / [id number] documented as of this encounter Advance Directives [...] Advance Directives occurred with: Patient Care Teams Wind Turbine Engineer Relationship Specialty Start Date End Date Gwendolyn Han MD [address] [place] [facility] [place] [address] PCP - General Hematology/Oncology 12/15/23 documented as of this encounter
--- OUTSIDE RECORDS SUMMARY | 2024-04-16 15:08 | External Medical Summary | Summary of Care ---
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) Procedures AR DENOSUMAB INJECTION Huang Hardy MD [address] [place] [address] Phone: tel: fax: Hematology Oncology [place] [address] [address] [place] [phone] Phone: tel: fax: Referral ID Status Reason Start Date Expiration Date V isits Requested Visits Authorized [id number] Authorized 02/29/2024 05/29/2024 999 4 Encounter Details Date Type Department Care Team (Late st Contact Info) Description 03/15/2024 11:30 AM EST Immunization/I njection Hematology Oncology [place] [address] [place] [address] Nurse, Med 4 [address] [place] [address] Metastasis from HER2 positive carcinoma [...] 11:45 AM EST Pharmacy Pharmacy Hematology Oncology [facility], [address] [address] [facility] Hem/Onc [address] [place] [address] 03/18/2024 2:30 PM EST Hem/Onc Treatment Hematology/Oncology Treatment, [place] [address] [place] [phone] Eloisa, Chair 9 Hem Onc Scenery [address] [place] [address] 03/26/2024 9:30 AM EST Telemedicine Psychology [facility], [address] [address] Berry Goldberg PsyD [address] [place] [address] [phone] 03/27/2024 10:45 AM EST Nurse Only Hematology Oncology [facility], [address] [phone] [place], Nurse Lab Hem/Onc [address] [place] [address] 03/27/2024 11:30 AM EST Office Visit Hematology Oncology [facility], [address] [phone] Lynda Mendez CRNP [facility] [address] [place], [place] [phone] 03/27/2024 12:00 PM EST Hem/Onc Treatment Hematology Oncology [facility], [address] [phone] [place], Chair 15 Hem/Onc [address] [place] [id number] 03/27/2024 2:00 PM EST Office Visit Palliative Medicine [facility], [address] [address] Ellis Rangel MD [facility] [place] [address] 03/27/2024 3:00 PM EST Office Visit Radiation Oncology, [address] [address] Torres Gaona MD [facility] [address] [place], [place] [phone] 04/04/2024 9:00 AM EST Office Visit Hematology Oncology [facility], [address] [phone] Huang Joe MD [facility] [address] [place], [place] [phone] Scheduled Orders Name Type Priority Associated Diagnoses [...] this encounter Medical Devices Implanted Type Area Carbon Grinder Device Identifier Shelf Expiration Date Model / Serial / Lot Valve Program Certal Pls - [id number] Implanted:Qty: 1 on 02/13/2024 by Oswaldo Rehman MD at [facility] Right: Head [employer] [id number] 10/13/2028 [id number] / / [id number] Cath Vent Bactiseal [id number] - [id number] Implanted:Qty: 1 on 02/13/2024 [place]do [place] [facility]: Head [employer] Center[employer] Population DiagnosticsCIHybrid [employer] JENNIFER [id number] 11/12/2024 82-3072 / / [id number] Valve Program Certal Pls - [id number] Implanted:Qty: 1 on 02/13/2024 by Oswaldo Rehman [place] [facility]: Head [employer] Center[employer] Population DiagnosticsCIHybrid Logic JENNIFER [id number] 10/13/2028 [id number] / / [id number] documented as of this encounter Visit Diagnoses [...] Advance Directives occurred with: Patient Care Teams Management Trainee Marketing Relationship Specialty Start Date End Date Gwendolyn Han MD [address] [place] [address] PCP - General Hematology/Oncology 12/15/23 documented as of this encounter
--- OUTSIDE RECORDS SUMMARY | 2024-04-16 15:08 | External Medical Summary ---
Author Name Unknown Address Unknown Organization K01:[facility] [address] [address] Laboratory Report Ordering Provider Test Date Status JAVI FLORENCE 03/15/2024 09:32:44 Final Observation Date Value Abnormality Reference (Units ) Status SYNC LEUKOCYTES IN BLOOD BY AUTOMATED COUNT 03/15/2024 09:32:44 4.46 4.00-10.80 (K/uL) Final Segs 03/15/2024 09:32:44 53.2 40.0-75.0 (%) Final Lymphs % 03/15/2024 09:32:44 32.7 18.0-42.0 (%) Final Monos 03/15/2024 09:32:44 11.7 Above high normal 1.0-11.0 (%) Final Eosinophils 03/15/2024 09:32:44 1.1 0.0-6.0 (%) Final Basos 03/15/2024 09:32:44 0.4 0.0-2.0 (%) Final Immature Granulocyte, Percent 03/15/2024 09:32:44 0.9 0.0-2.0 (%) Final Absolute Segs 03/15/2024 09:32:44 2.37 1.80-7.70 (K/uL) Final Lymphs, absolute 03/15/2024 09:32:44 1.46 1.00-4.80 (K/ul) Final Monos, Abs 03/15/2024 09:32:44 0.52 0.00-1.10 (K/uL) Final Eos, Abs 03/15/2024 09:32:44 0.05 0.00-0.70 (K/uL) Final Basos, Abs 03/15/2024 09:32:44 0.02 0.00-0.20 (K/uL) Final Immature Granulocytes, Number 03/15/2024 09:32:44 0.04 0.00-0.20 (K/uL) Final Performing Location [facility] - [address] [place]og[place] [address]
--- OUTSIDE RECORDS SUMMARY | 2024-04-16 15:08 | External Medical Summary ---
Author Name Unknown Address Unknown Organization K01:[facility] - [address] [facility]. [facility] [address] Laboratory Report Ordering Provider Test Date Status JAVI FLORENCE 03/15/2024 09:32:44 Final Observation Date Value Abnormality Reference (Units ) Status WBC, Total 03/15/2024 09:32:44 4.46 4.00-10.80 (K/uL) Final RBC 03/15/2024 09:32:44 3.85 3.85-5.15 (M/uL) Final Hemoglobin 03/15/2024 09:32:44 11.6 Below low normal 12.0-15.3 (g/dL) Final HCT 03/15/2024 09:32:44 34.9 Below low normal 36.0-45.2 (%) Final MCV 03/15/2024 09:32:44 90.6 81.5-97.5 (fL) Final MCH 03/15/2024 09:32:44 30.1 27.0-34.0 (pg) Final MCHC 03/15/2024 09:32:44 33.2 32.0-36.0 (g/dL) Final RDW 03/15/2024 09:32:44 13.4 11.5-15.5 (%) Final Platelets 03/15/2024 09:32:44 311 140-400 (K/uL) Final MPV 03/15/2024 09:32:44 8.3 6.6-11.1 (fL) Final Nucleated erythrocytes/100 leukocytes [Ratio] in Blood by Automated count 03/15/2024 09:32:44 0 <=0 (/100 WBCs) Final Performing Location [facility] - [address] [facility] [facility] [address]
--- OUTSIDE RECORDS SUMMARY | 2024-04-16 15:09 | External Medical Summary | Summary of Care ---
Author Name Unknown Organization [facility] Address [address] [place] [address] Phone [phone] Care Team Providers Care Parts Specialist Name Role Phone Gwendolyn Han MD Primary Care Provider [phone] Encounter Details Date Type Department Care Team (Late st Contact Info) Description 03/06/2024 1:00 PM EST Office Visit Hematology Oncology [facility] [address] [place] [address] Artem Lawrence PA-C [address] [place] [address] Chills* Allergies Active Allergy Reactions Criticality Noted Date Comments Heparin Unknown 02/22/2024 Per patient - cannot have Heparin as it contains a pork product. Please do not use heparin for port flush. documented as of this encounter (statuses as of 03/06/2024) Medications Glucosamine-Chondro itin Max St Oral Capsule [...] bedtime. With or without food. 120 Tablet 03/05/2024 11:59 AM EST 5 Active Capecitabine 150 MG Oral [...] the morning. 30 Tablet 5 5 Active documented as of this encounter (statuses as of 03/06/2024) Active Problems Problem Noted Date Diagnosed Date Metastasis from [...] as of this encounter (statuses as of 03/06/2024) Resolved Problems Problem Noted Date Diagnosed Date Resolved Date Obstructive hydrocephalus 02/04/2024 documented as of this encounter (statuses as of 03/06/2024) Social History Tobacco Use Types Packs/Day Years [...] 0-17 years) Not on file 01/23/2024 Comments Unknown Sex and Gender Information [...] documented in this encounter Progress Notes * Artem Lawrence PA-C - 03/06/2024 1:08 PM EST Reaction note Patient is receiving Herceptin for breast cancer. Was asked to see due to possible reaction. Was reported she developed chills during her treatment of Herceptin. Upon my arrival her chills have all but resolved. She was half way through Herceptin when it was stopped due to chills. She was given IV steroids. See nursing note for full documentation. No additional concerns were reported. She denied chest pain, shortness of breath, abdominal pain, flank pain, leg pain, oral paresthesias Vitals reviewed and look good Lying elevated interacting appropriately clear speech. is present. In no acute distress andnontoxic. Regular rate and rhythm. Clear to auscultation bilaterally at the lungs. Normal bowel sounds nontender no guarding or rigidity. No lower extremity pain. Plan IV steroids are already given. She was given Tylenol and Benadryl as a premed. No additional meds are needed at this time. Okay to restart the Herceptin at half rate and titrate upwards as tolerated every 15 minutes approximately at nursing discretion. I provided post reaction signs and symptoms toinclude chest pain, oral paresthesias, shortness of breath or other issues that she would need to be seen in the Emergency Room immediately. Updated Dr. Landeros on the above case and plan documented in this encounter Miscellaneous Notes * Addendum Note - Artem Lawrence PA-C - 03/06/2024 1:29 PM ESTAddended by: ARTEM LAWRENCE on: 03/06/2024 01:29 PM Modules accepted: Orders documented in this encounter Plan of Treatment Upcoming Encounters Date Type Department Care Team (Late st Contact Info) Description 03/13/2024 8:00 AM EST [facility] [address] [place] [address] 03/13/2024 8:00 AM EST Imaging Radiology [facility] [address] [place] [address] 03/13/2024 11:45 AM EST Pharmacy Pharmacy Hematology Oncology [address] [address] [facility] Hem/Onc [address] [place] [address] 03/15/2024 10:45 AM EST Nurse Only Hematology Oncology [address] [address] [place], Nurse Lab Hem/Onc [address] [place] [address] 03/15/2024 11:30 AM EST Office Visit Hematology Oncology [address] [phone] Lynda Mendez CRNP [facility] [address] [place], [place] [phone] 03/26/2024 9:30 AM EST Telemedicine Psychology [address] [address] Berry Goldberg Bryce [address] [place] [address] 03/27/2024 10:45 AM EST Nurse Only Hematology Oncology [facility], [place] [address] [address] [place], [place] [phone] [place], Nurse Lab Hem/Onc [address] [place] [address] [phone] 03/27/2024 11:30 AM EST Office Visit Hematology Oncology [facility], [address] [phone] Lynda Mendez CRNP [facility] [address] [place], [place] [phone] 03/27/2024 12:00 PM EST Hem/Onc Treatment Hematology Oncology [facility], [address] [phone] [place], Chair 15 Hem/Onc [address] [place] [address] [phone] Health Maintenance Due Date Last Done Comments COVID-19 Vaccine (#1) 10/14/1988 Depression Screening 1995 Influenza Vaccine (FLU shot) (#1) 2023 documented as of this encounter Medical Devices Implanted Type Area Farm Management Supervisor Device Identifier Shelf Expiration Date Model / Serial / Lot Valve Program Certal Pls - [id number] Implanted:Qty: 1 on 02/13/2024 by Oswaldo Rehman MD at OR [facility] Right: Head [employer]ER [id number] 10/13/2028 [id number] / / [id number] Cath Vent Bactiseal [id number] - [id number] Implanted:Qty: 1 on 02/13/2024 by Oswaldo Rehman MD at OR [facility] Right: Head [employer] [id number] 11/12/2024 82-3072 / / [id number] Valve Program Certal Pls - [id number] Implanted:Qty: 1 on 02/13/2024 by Oswaldo Rehman MD at [facility] Right: Head [employer] [id number] 10/13/2028 [id number] / / [id number] documented as of this encounter Visit Diagnoses Diagnosis Chills- Primary Chills (without fever) documented in this encounter Advance Directives * [...] Advance Directives occurred with: Patient Care Teams Parts Specialist Relationship Specialty Start Date End Date Gwendolyn Han MD [address] [place] [facility] [place] [address] PCP - General Hematology/Oncology 12/15/23 documented as of this encounter
--- OUTSIDE RECORDS SUMMARY | 2024-04-16 15:09 | External Medical Summary | Summary of Care ---
Author Name Unknown Organization [facility] Address [address] [place] [address] Phone [phone] Care Team Providers Care Contract Graphic Designer Name Role Phone Gwendolyn Han MD Primary Care Provider [phone] Reason for Visit * Reason Onset Date Comments Returning Call 03/07/2024 Encounter Details Date Type Department Care Team (Late st Contact Info) Description 03/07/2024 Telephone Hematology Oncology [facility] [address] [place] [address] Che Francisco MD [address] [place] [address] Returning Call Allergies Active Allergy Reactions Criticality Noted Date Comments Heparin Unknown 02/22/2024 Per patient - cannot have Heparin as it contains a pork product. Please do not use heparin for port flush. documented as of this encounter (statuses as of 03/07/2024) Medications Glucosamine-Chondro itin Max St Oral Capsule [...] as of this encounter (statuses as of 03/07/2024) Active Problems Patient Care Coordination No te [...] as of this encounter (statuses as of 03/07/2024) Resolved Problems Problem Noted Date Diagnosed Date Resolved Date Obstructive hydrocephalus 02/04/2024 documented as of this encounter (statuses as of 03/07/2024) Social History Tobacco Use Types Packs/Day Years [...] Telephone Encounter - Che Francisco MD - 03/07/2024 4:55 PM EST Return called with the patient to check on the symptoms. Nausea more prominent in the morning for long time Per , patient noticed increased nausea and vomiting this morning. So far 3 to 4 episodes of vomiting. She took Zofran with mild improvement. Baseline left-sided neck pain which she describes as headaches but now with headaches all over head.Denies any blurry vision, sensation changes, slurred speech, weakness of the extremities or face. Emetogenic potential for trastuzumab is minimal and usually recommend breakthrough antiemetic. 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 Recommend to start dexamethasone 4 mg BID which can help with edema and nausea. Discussed possible side effectsof dexamethasone which includes but not limited to increased blood sugars, jitteriness, insomnia, hypertension. If unable to tolerate with insomnia can change Decadron to 8 mg daily. All questions answered patient and satisfaction. Need to go to ER for any worsening symptoms. documented in this encounter Plan of Treatment Upcoming Encounters Date Type Department Care Team (Late st Contact Info) Description 03/13/2024 8:00 AM EST Imaging Radiology [facility] 1st Floor, [place] [address] [place] [address] 03/13/2024 8:30 AM EST Imaging Radiology [facility] [address] [place] [address] 03/13/2024 9:00 AM EST Imaging Radiology [facility] [address] [place] [address] 03/13/2024 11:45 AM EST Pharmacy Pharmacy Hematology Oncology [address] [address] [facility], [facility] Hem/Onc [address] [place] [address] 03/15/2024 10:45 AM EST Nurse Only Hematology Oncology [address] [address] [place], Nurse Lab Hem/Onc [address] [place] [address] [phone] 03/15/2024 11:30 AM EST Office Visit Hematology Oncology [address] [phone] Lynda Mendez CRNP [address] [place] [address] [phone] 03/15/2024 1:00 PM EST Immunization/Injection Hematology Oncology [facility], [address] [phone] Nurse, Med [facility] [address] [place], [place] [phone] 03/26/2024 9:30 AM EST Telemedicine Psychology [facility], [address] [phone] Berry Goldberg PsyD [facility] [place] [address] 03/27/2024 10:45 AM EST Nurse Only Hematology Oncology [facility], [address] [phone] [place], Nurse Lab Hem/Onc [address] [place] [address] [phone] 03/27/2024 11:30 AM EST Office Visit Hematology Oncology [facility], [address] [phone] Lynda Mendez CRNP [address] [place] [address] [phone] 03/27/2024 12:00 PM EST Hem/Onc Treatment Hematology Oncology [facility], [address] [phone] [place], Chair 15 Hem/Onc [address] [place] [address] [phone] Health Maintenance Due Date Last Done Comments COVID-19 Vaccine (#1) 10/14/1988 Depression Screening 1995 Influenza Vaccine (FLU shot) (#1) 2023 documented as of this encounter Medical Devices Implanted Type Area Band Master Device Identifier Shelf Expiration Date Model / Serial / Lot Valve Program Certal Pls - [id number] Implanted:Qty: 1 on 02/13/2024 by Oswaldo Rehman MD at [facility] Right: Head [employer] [id number] 10/13/2028 [id number] / / [id number] Cath Vent Bactiseal [id number] - [id number] Implanted:Qty: 1 on 02/13/2024 by Oswaldo Rehman MD at OR [facility] Right: Head [employer] [id number] 11/12/2024 82-3072 / / [id number] Valve Program Certal Pls - [id number] Implanted:Qty: 1 on 02/13/2024 by Oswaldo Rehman MD at OR [facility] Right: Head [employer] [id number] 10/13/2028 [id number] / / [id number] documented as of this encounter Visit Diagnoses Diagnosis Brain mass- Primary Unspecified condition of brain 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
--- OUTSIDE RECORDS SUMMARY | 2024-04-16 15:09 | External Medical Summary | Summary of Care ---
Author Name Unknown Organization [facility] Address [address] [place] [address] Phone [phone] Care Team Providers Care Hydro Generation Supervisor Name Role Phone Gwendolyn Han MD Primary Care Provider [phone] Reason for Visit * Reason Comments Medication Administration Injection not given Encounter Details Date Type Department Care Team (Late st Contact Info) Description 03/06/2024 11:30 AM EST Immunization/I njection Hematology Oncology 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 120 Tablet 5 03/05/2024 11:59 AM EST 5 [...] documented in this encounter Nursing Notes * Lit Willis - 03/06/2024 3:41 PM EST Reached out to provider that saw patient today Che Francisco MD regarding lab work. Phos: 2.6 Vitamin D: 34 Calcium: 8.7 Per beacon plan I had to contact provider because calcium was under 9. Provider was made aware of patient having reaction today to her Tratuzmab. Per provider advised me to hold xgeva and remind her to take vitamin D and calcium supplement. Patient advised of provider directions and told shot will be rescheduled to 03/15/24. Lit Willis 03/06/2024 3:45 PM documented in this encounter Plan of Treatment Upcoming Encounters Date Type Department Care Team (Late st Contact Info) Description 03/13/2024 8:00 AM EST Imaging Radiology [facility] 1st [facility], [place] [address] [place] [address] 03/13/2024 8:30 AM EST Imaging Radiology [facility] [address] [place] [address] 03/13/2024 9:00 AM EST Imaging Radiology [facility] [address] [place] [phone] 03/13/2024 11:45 AM EST Pharmacy Pharmacy Hematology Oncology [facility], [address] [address] [facility] Hem/[place]c [facility] [place] [address] 03/15/2024 10:45 AM EST Nurse Only Hematology Oncology [facility], [place] [address] [address] [place], [place] [phone] [place], Nurse Lab Hem/Onc [address] [place] [address] [phone] 03/15/2024 11:30 AM EST Office Visit Hematology Oncology [facility], [address] [phone] Lynda Mendez CRNP [facility] [address] [place], [place] [phone] 03/26/2024 9:30 AM EST Telemedicine Psychology [facility], [address] [phone] Berry Goldberg PsyD [address] [place], [place] [phone] 03/27/2024 10:45 AM EST Nurse Only Hematology Oncology [place] [address] [address] [place], [place] [phone] [place], Nurse Lab Hem/Onc [facility] [address] [place], [place] [phone] 03/27/2024 11:30 AM EST Office Visit Hematology Oncology [address] [phone] Lynda Mendez CRNP [facility] [address] [place], [place] [phone] 03/27/2024 12:00 PM EST Hem/Onc Treatment Hematology Oncology [facility], [place] [address] [place] [address] [place], Chair [address] Hem/Onc [address] [place] [address] Scheduled Orders Name Type Priority Associated Diagnoses Orde r Schedule PHOSPHORUS Lab Routine 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) Every Month for 12 Occurrences starting 03/06/2024 until 03/06/2025 COMPREHENSIVE METABOLIC PANEL Lab STAT 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) Every Month for 12 Occurrences starting 03/06/2024 until 03/06/2025 25-HYDROXY VITAMIN D Lab STAT 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 JENNIFER [id number] 10/13/2028 [id number] / / [id number] Cath Vent Bactiseal [id number] - [id number] Implanted:Qty: 1 on 02/13/2024 by Oswaldo Rehman MD at OR [facility] Right: Head [employer] JENNIFER [id number] 11/12/2024 82-3072 / / [id number] Valve Program Certal Pls - [id number] Implanted:Qty: 1 on 02/13/2024 by Oswaldo Rehman MD at OR [facility] Right: Head [employer]ENN[employer]ER [id number] 10/13/2028 [id number] / / [id number] documented as of this encounter Visit Diagnoses [...] Advance Directives occurred with: Patient Care Teams Hydro Generation Supervisor Relationship Specialty Start Date End Date Gwendolyn Han MD [address] [facility] [place] [address] PCP - General Hematology/Oncology 12/15/23 documented as of this encounter
--- OUTSIDE RECORDS SUMMARY | 2024-04-16 15:09 | External Medical Summary | Summary of Care ---
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 [facility] Reason for Referral: Cancer Palliative Medicine To Address: Pain & Symptom Management Referral Location Office Comments Metastatic triple positive breast cancer. Complicated history with multiple treatment breaks to wish to become in spite of increased risk . Now with progressive disease with multiple brain Mets. Currently started on chemotherapy after multiple discussions. 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); Encounter for chemotherapy management; Encounter for antineoplastic chemotherapy; Encounter to discuss test results; Encounter to discuss treatment options; Goals of care, counseling/discussion; Stage IV breast cancer in female (HCC); Abnormal biopsy result; Difficulty coping with disease; Need for emotional support; Hospitalization within last 30 days; Frequent hospital admissions; History of radiation therapy; Personal history of chemotherapy; Brain mass Allergies Active Allergy Reactions Criticality Noted Date Comments Heparin Unknown 02/22/2024 Per patient - cannot have Heparin as it contains a pork product. Please do not use heparin for port flush. documented as of this encounter (statuses as of 03/08/2024) Medications Glucosamine-Chondro itin Max St Oral Capsule [...] 84 Tablet 5 03/05/2024 11:59 AM EST Active documented as of this encounter (statuses as of 03/08/2024) Active Problems Patient Care Coordination No te [...] as of this encounter (statuses as of 03/08/2024) Resolved Problems Problem Noted Date Diagnosed Date Resolved Date Obstructive hydrocephalus 02/04/2024 documented as of this encounter (statuses as of 03/08/2024) Social History Tobacco Use Types Packs/Day Years [...] Sign Reading Time Taken Comments Blood Pressure 106/72 03/06/2024 9:08 AM EST Pulse 86 03/06/2024 9:08 AM EST Temperature 36.4 C (97.5 F) 03/06/2024 9:08 AM ES T Respiratory Rate 18 03/06/2024 9:08 AM EST Oxygen Saturation 100% 03/06/2024 9:08 AM EST Inhaled Oxygen Concentration - - Weight 56.8 kg (125 lb 4.8 oz) 03/06/2024 9:08 A M EST Height 167.6 cm (5' 5.98") 03/06/2024 9:08 AM ES T Body Mass Index 20.24 03/06/2024 9:08 AM EST documented in this encounter Functional Status * Are you deaf or do you have serious difficulty hearing? Answer Date of Assessment Author No 02/05/2024 12:29 AM Shakira Aden RN * Are you blind or do you have serious difficulty seeing, even when wearing glasses? Answer Date of Assessment Author No 02/05/2024 12:29 AM Sahkira Aden RN * Do you have serious [...] documented in this encounter Nursing Notes * Dylan Morales, MED ASSIST - 03/06/2024 9:12 AM EST Room 5 Patient was instructed to not get up [...] Description 03/13/2024 8:00 AM EST Imaging Radiology [facility] 1st [facility] [address] [place] [address] 03/13/2024 8:30 AM EST Imaging Radiology [facility] [address] [place] [address] 03/13/2024 9:00 AM EST Imaging Radiology [facility] [address] [place] [address] 03/13/2024 11:45 AM EST Pharmacy Pharmacy Hematology Oncology [address] [address] [facility] Hem/Onc [address] [place] [address] 03/15/2024 10:45 AM EST Nurse Only Hematology Oncology [facility], [address] [address] [place], Nurse Lab Hem/Onc [address] [place] [phone] 03/15/2024 11:30 AM EST Office Visit Hematology Oncology [address] [phone] Lynda Mendez CRNP [facility] [address] [place], [place] [phone] 03/15/2024 1:00 PM EST Immunization/Injection Hematology Oncology [address] [phone] Nurse, Med 4 [address] [place] [address] 03/26/2024 9:30 AM EST Telemedicine Psychology [facility], [place] [address] [place] [address] Berry Goldberg PsyD [address] [place], [place] [phone] 03/27/2024 10:45 AM EST Nurse Only Hematology Oncology [facility], [address] [phone] [place], Nurse Lab Hem/Onc [facility] [place] [address] 03/27/2024 11:30 AM EST Office Visit Hematology Oncology [facility], [address] [phone] Lynda Mendez CRNP [address] [place] [address] 03/27/2024 12:00 PM EST Hem/Onc Treatment Hematology Oncology [facility], [address] [phone] [place], Chair 15 Hem/Onc [address] [place] [phone] Pending Results Name Type Priority Associated Diagnoses Date /Time MICROSLIDE CONSULTATION Pathology STAT 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) 03/06/2024 2:25 PM EST Scheduled Referrals Name Type Priority Associated Diagnoses Orde r Schedule RADIATION/ONCOLOGY REFERRAL OP Referral Within 3 days (urgent) 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) Ordered: 03/08/2024 PALLIATIVE CARE REFERRAL OP Referral Within 10 days (routine) 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) Ordered: 03/08/2024 Health Maintenance Due Date Last Done Comments COVID-19 Vaccine (#1) 10/14/1988 Depression Screening 1995 Influenza Vaccine (FLU shot) (#1) 2023 documented as of this encounter Medical Devices Implanted Type Area Collection Coordinator Device Identifier Shelf Expiration Date Model / Serial / Lot Valve Program Certal Pls - [id number] Implanted:Qty: 1 on 02/13/2024 by Oswaldo Rehman [place] [facility] [place] [facility] [employer] [facility] JENN[facility]ER [id number] 10/13/2028 [id number] / / [id number] Cath Vent Bactiseal [id number] - [id number] Implanted:Qty: 1 on 02/13/2024 by Oswaldo Rehman MD [place] [facility] [place]: Head [employer] JENNIFER [id number] 11/12/2024 82-3072 / / [id number] Valve Program Certal Pls - [id number] Implanted:Qty: 1 on 02/13/2024 by Oswaldo Rehman MD [place] [facility] Right: Head [employer] [facility] JENNIFER [id number] 10/13/2028 [id number] / / [id number] documented as of this encounter Visit Diagnoses Diagnosis 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)- Primary 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) Encounter for chemotherapy management Encounter for antineoplastic chemotherapy Encounter to discuss test results Other specified counseling Encounter to discuss treatment options Other specified counseling Goals of care, counseling/discussion Other specified counseling Stage IV breast cancer in female (HCC) Abnormal biopsy result Difficulty coping with disease Other signs and symptoms involving emotional state Need for emotional support Hospitalization within last 30 days Frequent hospital admissions History of radiation therapy Personal history of irradiation, presenting hazards to health Personal history of chemotherapy Personal history of antineoplastic chemotherapy Brain mass Unspecified condition of brain documented in this encounter Advance Directives * [...] Advance Directives occurred with: Patient Care Teams Syrup Machine Laborer Relationship Specialty Start Date End Date Gwendolyn Han MD [address] [facility] [place] [address] PCP - General Hematology/Oncology 12/15/23 documented as of this encounter
--- OUTSIDE RECORDS SUMMARY | 2024-04-16 15:09 | External Medical Summary | Summary of Care ---
Author Name Unknown Organization [facility] Address [address] [place] [address] Phone [phone] Care Team Providers Care Graining Machine Operator Name Role Phone Gwendolyn Han MD Primary Care Provider [phone] Reason for Visit * Reason Onset Date Comments Follow Up 03/08/2024 Encounter Details Date Type Department Care Team (Late st Contact Info) Description 03/08/2024 Telephone Hematology Oncology, [place] [address] [place] [address] Che Francisco MD [address] [place] [address] Follow Up Allergies Active Allergy [...] Telephone Encounter - Che Francisco MD - 03/08/2024 3:32 PM EST Yesterday instructions were given to start dexamethasone 4 mg twice daily. Patient did not start the medication yet but continues to have nausea and vomiting. She had 1 episode of vomiting this morning. Recommended to start dexamethasone 4 mg twice daily. We also discussed risk of GI ulcers with romeo roids and need for GI prophylaxis with Pepcid 20 mg twice daily. Continue Zofran 8 mg every 8 hoursas needed for nausea/vomiting If she continues on Decadron for more than 3 weeks, will discuss about starting a PC prophylaxis. Urgent 3 day referral placed for Radiation Oncology as the patient willing to consider radiation. Schedulers unable to schedule as the patient is not answering the call. Suggested schedulers to call . Also suggested patient's to call them back for scheduling the appointment as soonas possible. documented in this encounter Plan of Treatment Upcoming Encounters Date Type Department Care Team (Late st Contact Info) Description 03/13/2024 8:00 AM EST Imaging Radiology [facility] 1st Floor, [place] [address] [place] [address] 03/13/2024 8:30 AM EST Imaging Radiology [facility] [address] [place] [address] 03/13/2024 9:00 AM EST Imaging Radiology [facility] [address] [place] [address] 03/13/2024 11:45 AM EST Pharmacy Pharmacy Hematology Oncology [address] [address] [facility] Hem/Onc [address] [place] [address] 03/15/2024 10:45 AM EST Nurse Only Hematology Oncology [facility] [address] [phone] [place], Nurse Lab Hem/Onc [address] [place], [place] [phone] 03/15/2024 11:30 AM EST Office Visit Hematology Oncology [address] [phone] Lynda Mendez CRNP Formerly named [facility] [address] [place], [place] [phone] 03/15/2024 1:00 PM EST Immunization/Injection Hematology Oncology [address] [phone] Nurse, Med [facility] [place] [address] 03/26/2024 9:30 AM EST Telemedicine Psychology [facility] [address] [phone] Berry Goldberg PsyD [address] [place] [address] 03/27/2024 10:45 AM EST Nurse Only Hematology Oncology [facility] [address] [phone] [place], Nurse Lab Hem/Onc [address] [place] [phone] 03/27/2024 11:30 AM EST Office Visit Hematology Oncology [facility] [address] [phone] Lynda Mendez CRNP Formerly named [facility] [place] [address] 03/27/2024 12:00 PM EST Hem/Onc Treatment Hematology Oncology [facility] [address] [phone] [place], Chair 15 Hem/Onc [address] [place] [address] [phone] Health Maintenance Due Date Last Done Comments COVID-19 Vaccine (#1) 10/14/1988 Depression Screening 1995 Influenza Vaccine (FLU shot) (#1) 2023 documented as of this encounter Medical Devices Implanted Type Area Assistant Unit Forester Device Identifier Shelf Expiration Date Model / Serial / Lot Valve Program Certal Pls - [id number] Implanted:Qty: 1 on 02/13/2024 by Oswaldo Rehman MD at [facility] Right: Head [employer] [id number] 10/13/2028 [id number] / / [id number] Cath Vent Bactiseal [id number] - [id number] Implanted:Qty: 1 on 02/13/2024 by Oswaldo Rehman MD at [place] [facility] Right: Head [employer] JENNIFER [id number] 11/12/2024 82-3072 / / [id number] Valve Program Certal Pls - [id number] Implanted:Qty: 1 on 02/13/2024 by Oswaldo Rehman MD at OR [facility] Right: Head [employer] JENNIFER [id number] 10/13/2028 [id number] / / [id number] documented as of this encounter Advance Directives [...] Advance Directives occurred with: Patient Care Teams Graining Machine Operator Relationship Specialty Start Date End Date Gwendolyn Han MD [address] [place] [facility] [place] [address] PCP - General Hematology/Oncology 12/15/23 documented as of this encounter
--- OUTSIDE RECORDS SUMMARY | 2024-04-16 15:09 | External Medical Summary | Summary of Care ---
Author Name Unknown Organization [facility] Address [address] [place] [address] Phone [phone] Care Team Providers Care Marker Machine Attendant Name Role Phone Gwendolyn Han MD Primary Care Provider [phone] Encounter Details Date Type Department Care Team (Late st Contact Info) Description 03/07/2024 Telephone Hematology Oncology [facility] [address] [place] [address] Huang Joe MD [address] [place] [address] Allergies Active Allergy Reactions Criticality [...] of Assessment Author No 02/05/2024 12:29 AM Shkaira Aden RN * Because of a physical, [...] encounter Miscellaneous Notes * Telephone Encounter - Chelle Kaur PHARM Tech - 03/07/2024 10:53 AM EST MEDICATION THERAPY MANAGEMENT CAPECITABINE + TUCATINIB TREATMENT STATUS NOTE Padmaja Burris [id number] Patient Phone Numbers Communication: Spoke to Caller Medication: Tucatinib (Tukysa) Dose: 300 mg PO BID Administration: +/- food Start Date: Primary Parking Lot Signaler/Oncologist: Dr. Joe Caller: Incoming Request: Patient has questions regarding oral chemotherapy Action: Other: forwarded to [facility] for Rx tracking. Additional Notes: Medication was scheduled to be delivered yesterday and has not arrived. LELIA Sheth Float Nurse Hematology Oncology Oral Chemotherapy Clinic Medication Therapy Disease Management [facility] 03/07/24,10:55 AM Time Spent on Encounter: < 5 minutes documented in this encounter Plan of Treatment Upcoming Encounters Date Type Department Care Team (Late st Contact Info) Description 03/13/2024 8:00 AM EST Imaging Rad[facility] [address] [place] [address] 03/13/2024 8:30 AM EST Imaging Radiology [facility] [address] [place] [address] 03/13/2024 9:00 AM EST Imaging Radiology [facility] [address] [place] [address] 03/13/2024 11:45 AM EST Pharmacy Pharmacy Hematology Oncology [address] [address] [facility] Hem/Onc [address] [place] [address] 03/15/2024 10:45 AM EST Nurse Only Hematology Oncology [facility], [address] [address] [place], Nurse Lab Hem/Onc [address] [place] [phone] 03/15/2024 11:30 AM EST Office Visit Hematology Oncology [facility], [address] [phone] Lynda Mendez CRNP [facility] [address] [place], [place] [phone] 03/15/2024 1:00 PM EST Immunization/Injection Hematology Oncology [address] [phone] Nurse, Med [address] [place] [phone] 03/26/2024 9:30 AM EST Telemedicine Psychology [facility], [address] [address] Berry Goldberg PsTong [address] [place] [address] 03/27/2024 10:45 AM EST Nurse Only Hematology Oncology [facility], [place] [address] [place], [place] [phone] [place], Nurse Lab Hem/Onc [address] [place] [phone] 03/27/2024 11:30 AM EST Office Visit Hematology Oncology [facility], [address] [phone] Lynda Mendez CRNP [facility] [address] [place], [place] [phone] 03/27/2024 12:00 PM EST Hem/Onc Treatment Hematology Oncology [facility], [address] [phone] [place], Chair 15 Hem/Onc [address] [place] [address] [phone] Health Maintenance Due Date Last Done Comments COVID-19 Vaccine (#1) 10/14/1988 Depression Screening 1995 Influenza Vaccine (FLU shot) (#1) 2023 documented as of this encounter Medical Devices Implanted Type Area Small Products Ii Assembler Device Identifier Shelf Expiration Date Model / Serial / Lot Valve Program Certal Pls - [id number] Implanted:Qty: 1 on 02/13/2024 by Oswaldo Rehman MD at [place] [facility] [place] Right: Head [employer] JENNIFER [id number] 10/13/2028 [id number] / / [id number] Cath Vent Bactiseal 036175 - [id number] Implanted:Qty: 1 on 02/13/2024 by Oswaldo Rehman MD at OR [facility] Right: Head [employer] JENNIFER [id number] 11/12/2024 82-3072 / / [id number] Valve Program Certal Pls - [id number] Implanted:Qty: 1 on 02/13/2024 by Oswaldo Rehman MD at OR [facility] Right: Head [employer] JENNIFER [id number] 10/13/2028 [id number] / / [id number] documented as of this encounter Advance Directives [...] Advance Directives occurred with: Patient Care Teams Marker Machine Attendant Relationship Specialty Start Date End Date Gwendolyn Han MD [address] [place] [facility] [place] [address] PCP - General Hematology/Oncology 12/15/23 documented as of this encounter
--- OUTSIDE RECORDS SUMMARY | 2024-04-16 15:09 | External Medical Summary | Summary of Care ---
Author Name Unknown Organization [facility] Address [address] [place] [address] Phone [phone] Care Team Providers Care Typing Element Machine Operator Name Role Phone Gwendolyn Han MD Primary Care Provider [phone] Encounter Details Date Type Department Care Team (Late st Contact Info) Description 03/06/2024 1:00 PM EST Office Visit Hematology Oncology [facility] [address] [place] [address] Artem Lawrence PA-C [address] [place] [address] Chills* Allergies Active Allergy Reactions [...] Description 03/13/2024 8:00 AM EST Imaging Rad[facility] [address] [place] [address] 03/13/2024 8:00 AM EST Imaging Radiology [facility] [address] [place] [address] 03/13/2024 11:45 AM EST Pharmacy Pharmacy Hematology Oncology [address] [address] [facility] Hem/Onc [address] [place] [address] 03/15/2024 10:45 AM EST Nurse Only Hematology Oncology [address] [address] [place], Nurse Lab Hem/Onc [address] [place] [address] 03/15/2024 11:30 AM EST Office Visit Hematology Oncology [address] [phone] Lynda Mendez CRNP [facility] [address] [place], [place] [phone] 03/26/2024 9:30 AM EST Telemedicine Psychology [address] [address] Berry Goldberg Bryce [address] [place] [address] 03/27/2024 10:45 AM EST Nurse Only Hematology Oncology [facility], [place] [address] [address] [place], [place] [phone] [place], Nurse Lab Hem/Onc [address] [place] [phone] 03/27/2024 11:30 AM EST Office Visit Hematology Oncology [facility], [address] [phone] Lynda Mendez CRNP [facility] [address] [place], [place] [phone] 03/27/2024 12:00 PM EST Hem/Onc Treatment Hematology Oncology [facility], [address] [phone] [place], Chair 15 Hem/Onc [address] [place] [phone] Health Maintenance Due Date Last Done Comments COVID-19 Vaccine (#1) 10/14/1988 Depression Screening 1995 Influenza Vaccine (FLU shot) (#1) 2023 documented as of this encounter Medical Devices Implanted Type Area Construction Contractor Device Identifier Shelf Expiration Date Model / Serial / Lot Valve Program Certal Pls - [id number] Implanted:Qty: 1 on 02/13/2024 [place] Oswaldo Re[place] [facility] [place] [employer] JENNIFER [id number] 10/13/2028 [id number] / / [id number] Cath Vent Bactiseal [id number] - [id number] Implanted:Qty: 1 on 02/13/2024 [place] Oswaldo Rehman [place] [facility] [place] Head [employer] JENNIFER [id number] 11/12/2024 82-3072 / / [id number] Valve Program Certal Pls - [id number] Implanted:Qty: 1 on 02/13/2024 by Oswaldo Rehman MD at [facility] Right: Head [employer] [id number] 10/13/2028 [id number] / / [id number] documented as of this encounter Visit Diagnoses [...] Advance Directives occurred with: Patient Care Teams Typing Element Machine Operator Relationship Specialty Start Date End Date Gwendolyn Han MD [address] [place] [facility] [place] [address] PCP - General Hematology/Oncology 12/15/23 documented as of this encounter
--- OUTSIDE RECORDS SUMMARY | 2024-04-16 15:09 | External Medical Summary | Summary of Care ---
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) Encounter for antineoplastic immunotherapy Procedures [place] INJ ONTRUZANT 10 MG Huang Joe MD [address] [place] [address] Phone: tel: fax: Hematology Oncology [address] [address] Phone: tel: fax: Referral ID Status Reason Start Date Expiration Date V isits Requested Visits Authorized [id number] Authorized 02/29/2024 05/29/2024 999 4 Encounter Details Date Type Department Care Team (Latest Contact Info) Description 03/06/2024 10:30 AM EST Hem/Onc Treatment Hematology Oncology [address] [phone] [place], Chair 18 Hem/Onc [address] [place] [address] [phone] Metastasis from HER2 positive carcinoma of breast [...] encounter (statuses as of 03/06/2024) Active Problems Patient Care Coordination No te [...] Shakira Franco RN documented in this encounter Nursing Notes * Reena Iglesias, ANDRÉS - 03/06/2024 4:26 PM EST Images from the original note were not included. Nursing Infusion Reaction note Padmaja Burris [id number] 03/06/2024 12:46 PM I was contacted by [...] 100 mg IV push, benadryl 25mg IVP [facility] PAC was notified immediately by RN via TT, [facility] PAC came to patient chairside for evaluation/reassessment. Direction given was to hold Benadryl 50mg IVP (r/t previous given premeds) and reassess patient until chills resolved completely to restart at 1/2 rate (85ml/hr) and titrateby 25ml/hr Q 15 mins until reach max rate of 170ml/hr. Infusion was stopped from [id number]. Reassessment for resolved symptoms occurred Q 15 mins. Related to persistent chills (pt stated not worsening but getting better), TT to [facility] PAC reporting this and order for Benadryl 25mg IVP ordered and administered per APR at 1357. Disposition at conclusion of reaction: Pt was reassessed at 1425, pt states her chills completely resolved and Ontruzant was restarted, completed remaining dose titrated up to full rate per Danielle Praterri PAC direction- see MAR without further reported reactions or issues. Dr Francisco, Dr Joe and Specialty Nurse Sandra Ramirse also notified. * Reena Iglesias RN - [...] on the pump were verified by this senior mortgage underwriter and second sign-in RN Patient [...] scheduled. hey verbalized understanding and agreeable. * aMryana Henry RN - 03/06/2024 11:22 AM EST [...] Description 03/13/2024 8:00 AM EST Imaging Radiology [facility] 1st [facility] [address] [place] [address] 03/13/2024 8:30 AM EST Imaging Radiology [facility] [address] [place] [address] 03/13/2024 9:00 AM EST Imaging Radiology [facility] [address] [place] [address] 03/13/2024 11:45 AM EST Pharmacy Pharmacy Hematology Oncology [address] [address] [facility] Hem/Onc [address] [place] [address] 03/15/2024 10:45 AM EST Nurse Only Hematology Oncology [address] [address] [place], Nurse Lab Hem/Onc [address] [place] [address] 03/15/2024 11:30 AM EST Office Visit Hematology Oncology [address] [phone] Lynda Mendez CRNP [address] [place] [address] [phone] 03/26/2024 9:30 AM EST Telemedicine Psychology [facility], [address] [address] Berry Goldberg PsyD [facility] [place] [address] 03/27/2024 10:45 AM EST Nurse Only Hematology Oncology [facility], [address] [phone] [place], Nurse Lab Hem/Onc [address] [place] [address] [phone] 03/27/2024 11:30 AM EST Office Visit Hematology Oncology [facility], [address] [phone] Lynda Mendez CRNP [address] [place] [address] [phone] 03/27/2024 12:00 PM EST Hem/Onc Treatment Hematology Oncology [facility], [address] [phone] [place], Chair 15 Hem/Onc [address] [place] [address] [phone] Health Maintenance Due Date Last Done Comments COVID-19 Vaccine (#1) 10/14/1988 Depression Screening 1995 Influenza Vaccine (FLU shot) (#1) 2023 documented as of this encounter Medical Devices Implanted Type Area Ct Tech Device Identifier Shelf Expiration Date Model / Serial / Lot Valve Program Certal Pls - [id number] Implanted:Qty: 1 on 02/13/2024 by Oswaldo Rehman MD at OR [facility] [place] Right: Head [employer] [id number] 10/13/2028 [id number] / / [id number] Cath Vent Bactiseal [id number] - [id number] Implanted:Qty: 1 on 02/13/2024 by Oswaldo Rehman MD at OR [facility] Right: Head [employer] [id number] 11/12/2024 82-3072 / / [id number] Valve Program Certal Pls - [id number] Implanted:Qty: 1 on 02/13/2024 by Oswaldo Rehman MD at [facility] Right: Head [employer] [id number] 10/13/2028 [id number] / / [id number] documented as of this encounter Procedures Procedure [...] 4.8 mg/dL 03/06/2024 1:20 PM EST LABORATORY [facility] Blood Blood sample taken from central line / Unknown Central Line / Unknown 03/06/2024 9:05 AM EST 03/06/2024 9:13 AM EST Che Francisco MD LAB BLOOD ORDERABLES F inal Result LABORATORY [facility] [address] [place] [address] * 25-HYDROXY VITAMIN D (03/06/2024 9:05 AM EST) 25-Hydroxy Vitamin D 34 >19 ng/mL 03/06/2024 2:05 PM EST LABORATORY [facility] Blood Blood sample taken from central line / Unknown Central Line / Unknown 03/06/2024 9:05 AM EST 03/06/2024 9:13 AM EST Narrative LABORATORY [facility] - 03/06/2024 2:05 PM EST Deficient: <20 ng/mL Insufficient: 20-29 ng/mL Recommended/Optimum:30-50 ng/mL Vitamin D intoxication is rare. If suspicious of Vitamin D toxicity, evaluation of serum Calcium and PTH is recommended. Che Francisco MD LAB BLOOD ORDERABLES F inal Result LABORATORY [address] [address] documented in this encounter Visit Diagnoses Diagnosis [...] Advance Directives occurred with: Patient Care Teams Ordinary Seaman Relationship Specialty Start Date End Date Gwendolyn Han MD [address] [place] [facility] [place] [address] PCP - General Hematology/Oncology 12/15/23 documented as of this encounter
--- OUTSIDE RECORDS SUMMARY | 2024-04-16 15:09 | External Medical Summary | Summary of Care ---
Author Name Unknown Organization [facility] Address [address] [place] [address] Phone [phone] Care Team Providers Care Flight Operations Specialist Name Role Phone Gwendolyn Han MD Primary Care Provider [phone] Reason for Visit * Reason Onset Date Comments Advice 03/07/2024 Encounter Details Date Type Department Care Team (Late st Contact Info) Description 03/07/2024 Telephone Hematology Oncology [facility] [address] [place] [address] Huang Joe MD [address] [place] [address] Advice Allergies Active Allergy Reactions Criticality Noted Date [...] mouth in the morning. 30 Tablet 5 Active documented as of [...] encounter Miscellaneous Notes * Telephone Encounter - Rosario Taylor RN - 03/07/2024 9:38 AM EST MARIO ALBERTO - CAJoshua and Dr. Monson and [facility] Call returned to patient's spouse. Patient had her first dose of onztruzant on 03/06/2024 and is nowvomiting. She had vomiting "several times". No diarrhea, no fever. No vision changes but does havea headache. Headache is on left side in the back and top of the head. Headache is not new for her. Headache is same intensity as "any other time". No one else in the home is sick. She woke up at 8:15, she vomited. Vomited overnight. Took zofran /tylenol then vomited again. Zofran was ODT. She has nausea. No constipation. Normal bowel movement last night. Offered patient appointment today - patient/spouse is not able to come to clinic today due to distance. Offered these interventions: Sip room temperature/warm fluids such as gatorade, pedialyte, water, tea, 7up, gingerale, broth. If fluids tolerated, may proceed with bland foods such as crackers, toast, soups Repeat zofran 6 hours from last dose If patient able to keep clears/foods down may stay home. If patient continues to vomit, patient should be take to ER for evaluation and consideration of IV intervetion. Spouse verbalize understanding. Has not started oral chemotherapy yet as it has not been received. It was to be received yesterday,however patient was not home. He is aware I will make the [facility] pharmacy aware of their concerns. Spouse expressed concerns and dissatisfaction with call process, "waiting to long to speak with a nurse. It's like calling a bank". Apologized, however the call center is the normal route and processfor in coming calls. Recommend he call the patient advocate to discuss his concerns. Patient advocate number given. HEMATOLOGY/ONCOLOGY INITIAL CHEMO FOLLOW-UP Post chemo side effects: Nausea vomitting Understands post treatment medications: Yes Understands to call office prior to ER visit/or with issues: Yes Aware of next appointment: Yes Additional information: see above * Telephone Encounter - Ulises James OSA - 03/07/2024 9:28 AM EST Huang Joe MD Patient's spouse is requesting to speak to a nurse. He had mentioned a Alicia He. He needs to discuss the medication effects and they have not received some of the medication that was to be mailed to them. Please advise. documented in this encounter Plan of Treatment Upcoming Encounters Date Type Department Care Team (Late st Contact Info) Description 03/13/2024 8:00 AM EST Imaging Radiology [facility] 1st Floor, [place] [address] [place] [address] 03/13/2024 8:30 AM EST Imaging Radiology [facility] [address] [place] [phone] 03/13/2024 9:00 AM EST Imaging Radiology [facility] [address] [place] [phone] 03/13/2024 11:45 AM EST Pharmacy Pharmacy Hematology Oncology [facility], [place] [address] [place] [address] [facility] Hem/Onc [address] [place] [address] 03/15/2024 10:45 AM EST Nurse Only Hematology Oncology [facility], [place] [address] [place], [place] [phone] [place], Nurse Lab Hem/Onc [address] [place], [place] [phone] 03/15/2024 11:30 AM EST Office Visit Hematology Oncology [facility], [place] [address] [place] [phone] Lynda Mendez, DIONI [address] [place], [place] [phone] 03/15/2024 1:00 PM EST Immunization/Injection Hematology Oncology [facility], [place] [address] [place], [place] [phone] Nurse, Med 4 [address] [place], [place] [phone] 03/26/2024 9:30 AM EST Telemedicine Psychology [facility], [place] [address] [place], [place] [phone] Berry Goldberg PsyD [address] [place], [place] [phone] 03/27/2024 10:45 AM EST Nurse Only Hematology Oncology [facility], [place] [address] [place], [place] [phone] [place], Nurse Lab Hem/Onc [address] [place] [address] 03/27/2024 11:30 AM EST Office Visit Hematology Oncology [facility], [place] [address] [place] [address] Lynda Mendez, DIONI [address] [place] [address] 03/27/2024 12:00 PM EST Hem/Onc Treatment Hematology Oncology [facility], [place] [address] [place], [place] [phone] [place], Chair 15 Hem/Onc [facility] [address] [place], [place] [phone] Health Maintenance Due Date Last Done Comments COVID-19 Vaccine (#1) 10/14/1988 Depression Screening 1995 Influenza Vaccine (FLU shot) (#1) 2023 documented as of this encounter Medical Devices Implanted Type Area Game Engineer Device Identifier Shelf Expiration Date Model / Serial / Lot Valve Program Certal Pls - [id number] Implanted:Qty: 1 on 02/13/2024 by Oswaldo Rehman MD at OR [facility] Right: Head [employer] JENNIFER [id number] 10/13/2028 [id number] / / [id number] Cath Vent Bactiseal 720808 - [id number] Implanted:Qty: 1 on 02/13/2024 by Oswaldo Rehman MD at OR [facility] Right: Head [employer] JENNIFER [id number] 11/12/2024 82-3072 / / [id number] Valve Program Certal Pls - [id number] Implanted:Qty: 1 on 02/13/2024 by Oswaldo Rehman MD at OR [facility] Right: Head [employer] JENNIFER [id number] 10/13/2028 [id number] / / [id number] documented as of this encounter Advance Directives [...] Advance Directives occurred with: Patient Care Teams Flight Operations Specialist Relationship Specialty Start Date End Date Gwendolyn Han MD [address] [place] [facility] [place] [address] PCP - General Hematology/Oncology 12/15/23 documented as of this encounter
--- OUTSIDE RECORDS SUMMARY | 2024-04-16 15:09 | External Medical Summary | Summary of Care ---
Author Name Unknown Organization [facility] Address [address] [place] [address] Phone [phone] Care Team Providers Care Aircraft Engine Mechanic Overhaul Name Role Phone Gwendolyn Han MD Primary Care Provider [phone] Reason for Visit * Reason Onset Date Comments Returning Call 03/07/2024 Encounter Details Date Type Department Care Team (Late st Contact Info) Description 03/07/2024 Telephone Hematology Oncology [facility] [address] [place] [address] Che Francisco MD [address] [place] [address] Returning Call Allergies Active Allergy [...] the patient to check on the symptoms. Patient usually have nausea only in the morning with no vomitings at baseline. Per , patientnoticed increased nausea and vomiting this morning. So far 4 episodes of vomiting. Three episodes of vomiting before starting oral chemotherapy. She took Zofran with mild improvement. At Baseline left-sided neck pain which she describes as headaches but now with headaches all over scalp. Denies anyblurry vision, sensation changes, slurred speech, weakness of the extremities or face. Emetogenic potential for trastuzumab is minimal and usually recommend breakthrough antiemetic. 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 Recommend to start dexa methasone 4 mg BID which can help with edema and nausea. Discussed possible side effects of dexamethasone which includes but not limited to increased blood sugars, jitteriness, insomnia, hypertension. If unable to tolerate with insomnia can change Decadron to 8 mg daily. worried about immunosuppression with the dexamethasone. We discussed there is a possibilityof immunosuppression with dexamethasone, however patient is currently immunocompromised while on chemotherapy with capecitabine. Also steroids needed for brain metastasis at this time which is going to pose more risk immediately than immunosuppression. All questions answered patient and satisfaction. Need to go to ER for any worsening symptoms. Based on symptom response, if she continues on decadron for > 3 weeks, will discuss about starting PCP prophylaxis We also discussed about alarming symptoms which includes but not limited to worsening headaches, blurry vision, dizziness, sensory changes, slurred speech , weakness that needs an immediate ER attention. Any new changes should need an ER evaluation. Approximately 30 minutes of the time spent in discussing the management and answering questions. Addended encounter to reflect complete discussion. documented in this encounter Plan of Treatment Upcoming Encounters Date Type Department Care Team (Late st Contact Info) Description 03/13/2024 8:00 AM EST Imaging Radiology [facility] 1st Floor, [place] [address] [place] [address] 03/13/2024 8:30 AM EST Imaging Radiology [facility] [address] [place] [address] 03/13/2024 9:00 AM EST Imaging Radiology [facility] [address] [place] [address] 03/13/2024 11:45 AM EST Pharmacy Pharmacy Hematology Oncology [address] [place] [address] [facility] Hem/Onc [address] [place] [address] 03/15/2024 10:45 AM EST Nurse Only Hematology Oncology [facility] [place] [address] [place] [address] [place], Nurse Lab Hem/Onc [address] [place] [address] 03/15/2024 11:30 AM EST Office Visit Hematology Oncology [facility] [place] [address] [place] [phone] Lynda Mendez CRNP [address] [place], [place] [phone] 03/15/2024 1:00 PM EST Immunization/Injection Hematology Oncology [place] [address] [place] [address] Nurse, Med 4 [address] [place], [place] [phone] 03/26/2024 9:30 AM EST Telemedicine Psychology [facility] [place] [address] [place], [place] [phone] Berry Goldberg PsyD [address] [place] [address] 03/27/2024 10:45 AM EST Nurse Only Hematology Oncology [facility] [place] [address] [place], [place] [phone] [place], Nurse Lab Hem/Onc [address] [place], [place] [phone] 03/27/2024 11:30 AM EST Office Visit Hematology Oncology [facility] [address] [place] [phone] Lynda Mendez CRNP [address] [place], [place] [phone] 03/27/2024 12:00 PM EST Hem/Onc Treatment Hematology Oncology [facility] [place] [address] [place] [address] [place], Chair 15 Hem/Onc [address] [place] [address] Health Maintenance Due Date Last Done Comments COVID-19 Vaccine (#1) 10/14/1988 Depression Screening 1995 Influenza Vaccine (FLU shot) (#1) 2023 documented as of this encounter Medical Devices Implanted Type Area Phlebotomy Director Device Identifier Shelf Expiration Date Model / Serial / Lot Valve Program Certal Pls - [id number] Implanted:Qty: 1 on 02/13/2024 by Oswaldo Rehman MD at [place] [facility] Right: Head [employer] JENNIFER [id number] 10/13/2028 [id number] / / [id number] Cath Vent Bactiseal 903858 - [id number] Implanted:Qty: 1 on 02/13/2024 by Oswaldo Rehman MD at [place] [facility] [place] Right: Head [employer] JENNIFER [id number] 11/12/2024 82-3072 / / [id number] Valve Program Certal Pls - [id number] Implanted:Qty: 1 on 02/13/2024 by Oswaldo Rehman MD at [place] [facility] Right: Head [employer] JENNIFER [id number] 10/13/2028 [id number] / / [id number] documented as of this encounter Visit Diagnoses [...] Advance Directives occurred with: Patient Care Teams Aircraft Engine Mechanic Overhaul Relationship Specialty Start Date End Date Gwendolyn Han MD [address] [place] [facility] [place] [address] PCP - General Hematology/Oncology 12/15/23 documented as of this encounter
--- OUTSIDE RECORDS SUMMARY | 2024-04-16 15:09 | External Medical Summary | Summary of Care ---
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) Che Francisco MD [address] [place] [address] Phone: tel: fax: Referral ID Status Reason Start Date Expiration Date Visits Requested Visits Authorized [id number] Pending Review Specialty Services Required 03/08/2024 999 [...] breast (HCC) Che Francisco MD [address] [place] [address] Phone: tel: fax: Referral ID Status Reason Start Date Expiration Date Visits Requested Visits Authorized [id number] Pending Review Specialty Services Required 03/06/2024 999 [...] 9:30 AM EST Office Visit Hematology Oncology [facility] [address] [place] [address] Huang Joe MD [address] [place], [place] [phone] Cancer of left breast metastatic to brain [...] Description 03/13/2024 8:00 AM EST Imaging Radiology [facility] [address] [place] [address] 03/13/2024 8:30 AM EST Imaging Radiology [facility] [address] [place] [address] 03/13/2024 9:00 AM EST Imaging Radiology [facility] [address] [place] [address] 03/13/2024 11:45 AM EST Pharmacy Pharmacy Hematology Oncology [address] [address] [facility] Hem/Onc [address] [place] [address] 03/15/2024 10:45 AM EST Nurse Only Hematology Oncology [facility], [address] [address] [place], Nurse Lab Hem/Onc [address] [place] [address] [phone] 03/15/2024 11:30 AM EST Office Visit Hematology Oncology [address] [phone] Lynda Mendez CRNP [facility] [address] [place], [place] [phone] 03/15/2024 1:00 PM EST Immunization/Injection Hematology Oncology [address] [phone] Nurse, Med 4 [address] [place] [address] 03/26/2024 9:30 AM EST Telemedicine Psychology [facility], [place] [address] [place] [address] Berry Goldberg PsyD [address] [place], [place] [phone] 03/27/2024 10:45 AM EST Nurse Only Hematology Oncology [facility], [address] [phone] [place], Nurse Lab Hem/Onc [facility] [place] [address] 03/27/2024 11:30 AM EST Office Visit Hematology Oncology [facility], [address] [phone] Lynda Mendez CRNP [address] [place] [address] 03/27/2024 12:00 PM EST Hem/Onc Treatment Hematology Oncology [facility], [address] [phone] [place], Chair 15 Hem/Onc [address] [place] [address] [phone] Pending Results Name Type Priority Associated Diagnoses [...] this encounter Medical Devices Implanted Type Area Sales Operations Coordinator Device Identifier Shelf Expiration Date Model / Serial / Lot Valve Program Certal Pls - [id number] Implanted:Qty: 1 on 02/13/2024 by Oswaldo Rehman [place] [facility] [place] Head [employer] He[employer]om[employer]ed JENNIFER [id number] 10/13/2028 [id number] / / [id number] Cath Vent Bactiseal 839295 - [id number] Implanted:Qty: 1 on 02/13/2024 by Oswaldo Rehman MD [place] [facility]: Head [employer] JENNIFER [id number] 11/12/2024 82-3072 / / [id number] Valve Program Certal Pls - [id number] Implanted:Qty: 1 on 02/13/2024 by Oswaldo Rehman MD [place] [facility] [place]: Head [employer] JENNIFER [id number] 10/13/2028 [id number] / / [id number] documented as of this encounter Visit Diagnoses [...] Advance Directives occurred with: Patient Care Teams Senior Mobile Developer Relationship Specialty Start Date End Date Gwendolyn Han MD [address] [place] [facility] [place] [address] PCP - General Hematology/Oncology 12/15/23 documented as of this encounter
--- OUTSIDE RECORDS SUMMARY | 2024-04-16 15:09 | External Medical Summary | Summary of Care ---
Author Name Unknown Organization [facility] Address [address] [place] [address] Phone [phone] Care Team Providers Care Livestock Br[employer] Inspector Name Role Phone Gwendolyn Han MD Primary Care Provider [phone] Reason for Visit * Reason Comments Medication Management Encounter Details Date Type Department Care Team (Late st Contact Info) Description 03/13/2024 11:45 AM [facility] Pharmacy Pharmacy Hematology Oncology [facility] [address] [place] [address] [facility], [facility] Hem/Onc [address] [place] [address] 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)*; 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) Allergies Active Allergy Reactions Criticality Noted [...] this encounter Progress Notes * Martine Gómez, [facility] - 03/13/2024 3:05 PM EST MEDICATION THERAPY MANAGEMENT CAPECITABINE + TUCATINIB TREATMENT PROGRESS NOTE Padmaja Burris [id number] Patient Phone Numbers Preferred Lab: Specialty Pharmacy: Communication: Left message Treatment: Medication: Capecitabine (Xeloda) Indication/Staging/Diagnosis Code: Breast w/ mets, HER2+ C79.9, C50.919, Z17.31 Dose Basis: 1000 mg/m2 Dose: 1650 mg Administration: within 30 minutes of a meal Medication: Tucatinib (Tukysa) Dose: 300 mg PO BID Administration: +/- food Start Date: TBD Primary Animal Assisted Therapist/Oncologist: Dr. Joe Additional Therapy: Leuprolide Trastuzumab Denosumab Supportive Care Meds: Ondansetron Prochlorperazine Cycle Dates C1 TBD C2 TBD Treatment History: XRT, THP, Phesgo, Tamoxifen, Xgeva Treatment Dose Adjustment/Hold History: N/a Interval History: N/a Changes to medication list since last visit? No Drug interaction assessment: Treatment plan and current medication list evaluated for drug-drug interactions. No clinically significant drug interaction identified Assessment and Plan: Left voicemail requesting return call to clinic to review if medication started and to review toleration to therapy MTM will follow-up in 1 week unless return call received sooner Assessment of compliance: N/a Assessment of adverse effects attributed to drug therapy: N/a Dose adjustment needed based on lab or adverse drug reaction? N/a Follow up: MTM 03/20 Martine Gómez, GonzálezD Ambulatory Clinical Pharmacist | Oral Chemotherapy Clinic [facility] 03/13/2024 3:07 PM Monitoring Parameters: Estimated CrCl Serum creatinine: [...] 9:15 AM EST Nurse Only Hematology Oncology [place] [address] [place] [address] [place], Nurse Lab Hem/Onc [address] [place] [address] 03/15/2024 10:00 AM EST Office Visit Hematology Oncology [address] [phone] Alicia Murillo MD [address] [place], [place] [phone] 03/15/2024 11:30 AM EST Immunization/Injection Hematology Oncology [address] [address] Nurse, Med 4 [address] [place], [place] [phone] 03/20/2024 11:45 AM EST Pharmacy Pharmacy Hematology Oncology [address] [address] [facility] Hem/Onc [address] [place] [address] 03/26/2024 9:30 AM EST Telemedicine Psychology [address] [phone] Berry Goldberg PsyD [facility] [address] [place], [place] [phone] 03/27/2024 10:45 AM EST Nurse Only Hematology Oncology [address] [phone] [place], Nurse Lab Hem/Onc [address] [place] [address] 03/27/2024 11:30 AM EST Office Visit Hematology Oncology [facility], [place] [address] [place] [phone] Lynda Mendez, DIONI [address] [place], [place] [phone] 03/27/2024 12:00 PM EST Hem/Onc Treatment Hematology Oncology [facility], [place] [address] [place], [place] [phone] [place], Chair 15 Hem/Onc [address] [place] [phone] Health Maintenance Due Date Last Done Comments COVID-19 Vaccine (#1) 10/14/1988 Depression Screening 1995 Influenza Vaccine (FLU shot) (#1) 2023 documented as of this encounter Medical Devices Implanted Type Area Appliance Installer Device Identifier Shelf Expiration Date Model / Serial / Lot Valve Program Certal Pls - [id number] Implanted:Qty: 1 on 02/13/2024 by Oswaldo Rehman MD at OR [facility] Right: Head [employer] [id number] 10/13/2028 [id number] / / [id number] Cath Vent Bactiseal [id number] - [id number] Implanted:Qty: 1 on 02/13/2024 by Oswaldo Rehman MD at OR [facility] Right: Head [employer] [id number] 11/12/2024 [id number] / / [id number] Valve Program Certal Pls - [id number] Implanted:Qty: 1 on 02/13/2024 by Oswaldo Rehman MD at OR 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
--- OUTSIDE RECORDS SUMMARY | 2024-04-16 15:10 | External Medical Summary | Summary of Care ---
Author Name Unknown Organization [facility] Address [address] [place] [address] Phone [phone] Care Team Providers Care Entry Level Management Name Role Phone Gwendolyn Han MD Primary Care Provider [phone] Encounter Details Date Type Department Care Team (Late st Contact Info) Description 03/06/2024 1:00 PM EST Office Visit Hematology Oncology [facility] [address] [place] [address] Artem Dominguez PA-C [address] [place] [address] Chills* Allergies Active Allergy Reactions [...] in this encounter Progress Notes * Artem Dominguez PA-C - 03/06/2024 1:08 PM EST Reaction [...] case and plan documented in this encounter Plan of Treatment Upcoming Encounters Date Type Department Care Team (Late st Contact Info) Description 03/13/2024 8:00 AM EST Imaging Radiology [facility] 1st [facility] [address] [place] [address] 03/13/2024 8:00 AM EST Imaging Radiology [facility] [address] [place] [address] 03/13/2024 11:45 AM EST Pharmacy Pharmacy Hematology Oncology [address] [address] [facility] Hem/Onc [address] [place] [address] 03/15/2024 10:45 AM EST Nurse Only Hematology Oncology [facility], [address] [address] [place], Nurse Lab Hem/Onc [address] [place] [phone] 03/15/2024 11:30 AM EST Office Visit Hematology Oncology [address] [phone] Lynda Mendez CRNP [facility] [address] [place], [place] [phone] 03/26/2024 9:30 AM EST Telemedicine Psychology [address] [phone] Berry Goldberg PsyD [facility] [address] [place], [place] [phone] 03/27/2024 10:45 AM EST Nurse Only Hematology Oncology [address] [phone] [place], Nurse Lab Hem/Onc [address] [place] [address] 03/27/2024 11:30 AM EST Office Visit Hematology Oncology [facility], [place] [address] [place] [address] Lynda Mendez, DIONI [address] [place], [place] [phone] 03/27/2024 12:00 PM EST Hem/Onc Treatment Hematology Oncology [facility], [place] [address] [place], [place] [phone] E[place], Chair 15 Hem/Onc [address] [place] [address] [phone] Health Maintenance Due Date Last Done Comments COVID-19 Vaccine (#1) 10/14/1988 Depression Screening 1995 Influenza Vaccine (FLU shot) (#1) 2023 documented as of this encounter Medical Devices Implanted Type Area Sheltered Workshop Executive Director Device Identifier Shelf Expiration Date Model / Serial / Lot Valve Program Certal Pls - [id number] Implanted:Qty: 1 on 02/13/2024 by Oswaldo Rehman MD [place] [facility] [place]: Head [employer] [place] [id number] 10/13/2028 [id number] / / [id number] Cath Vent Bactiseal [id number] - [id number] Implanted:Qty: 1 on 02/13/2024 by Oswaldo Rehman MD [place] [facility] Right: Head [employer] [id number] 11/12/2024 [id number] / / [id number] Valve Program Certal Pls - [id number] Implanted:Qty: 1 on 02/13/2024 by Oswaldo Rehman MD at [facility] Right: Head [employer] [place] [id number] 10/13/2028 [id number] / / [id number] documented as of this encounter Visit Diagnoses [...] Advance Directives occurred with: Patient Care Teams Entry Level Management Relationship Specialty Start Date End Date Gwnedolyn Han MD [address] [place] [address] PCP - General Hematology/Oncology 12/15/23 documented as of this encounter
--- NOTE | 2024-04-16 16:29 | Emergency Department Note ---
ED Visit Note Physician Evaluation Note: Patient was seen in conjunction with the midlevel provider. Please see the midlevel provider note for full details of the patient's visit. I have personally evaluated and examined this patient. Patient presented to the ED with headache, she has complex past medical history including metastatic cancer with disease to the brain, status post [employer] shunt. CT imaging here shows evidence of slitlike ventricles with severe metastatic burden. On my assessment the patient is alert, she states her pain is improved following IV pain medication. She was also treated with IV steroids for her metastatic burden. Patient's case was discussed by the nurse practitioner (Carmenza Garibay NP) with the [facility] (Dr. Vasquez) and recommendations by neurosurgery (Dr. Rehman) and hematology/oncology (Dr. Dos Santos) at [facility] in [place] were to have the patient remain at our facility as they did not feel that any unique interventions could be offered at this point at the tertiary care facility. I did discuss the patient's presentation with the on-call hematology/oncology provider for [facility] in [place], Dr. Coats, and he was in agreement for consultation with the hospitalist service if the patient is admitted. I discussed all of the above with the patient, as well as with her and other family members at the bedside. They are in agreement for admission here at [facility]. They are aware of the severity of the patient's illness, but at this point would like to have further discussion with hematology/oncology as to whether or not any type of radiation therapy would still be an option. Patient will therefore be placed for admission to the hospitalist service with plan for hematology oncology consultation. I agree with assessment and plan of Carmenza Garibay NP. Ryan Cordero DO .
--- NOTE | 2024-04-16 17:57 | History & Physical Report ---
Date of Service April 16, 2024 Assessment & Plan (1) Intractable headache: Plan: Patient presents with chronic headache & left-sided neck pain, but much worse in the last 5 days. Location of headache is the left parietal region. Left-sided neck pain is at the base of the left neck. Headache along with nausea/emesis is most certainly due to increased ICP. I cannot rule out other pathology such as dissection, bony mets to cervical spine, etc. She has had no infectious symptoms or fever to suggest shunt infection, meningitis, etc. She has had a SERVICE ASSISTANT shunt since 01/2024 - placed at [facility]. She was just seen at [facility] on , 04/11, and had the shunt checked by neurosurgery and was told the shunt is working correctly. CT head done today shows findings similar to the MRI Brain done last week at [facility]. The ER providers contacted [facility] earlier today and [facility] Neurosurgery was involved in that call. Neurosurgery recommended steroid therapy. They told our ER providers that nothing further could be offered at their facility beyond what could be done here at [facility]. She is s/p dexamethasone 10mg IV x 1 at ER presentation. Plan: * continue steroids - dexamethasone 4mg IV q6h * I have ordered CTA head/neck to rule out dissection, clot, etc complicating her extensive metastatic disease to the brain and increased ICP * Ordered CT cervical spine to r/o worsening metastatic disease; prior imaging in 2021 showed mets to C3/C4/C6 and pathological compression fracture of C6 with retropulsion of bony fragments * tylenol 1gm TID scheduled * morphine 2mg q3h prn * consider muscle relaxer as paraspinal muscles on left are very tight - ba clofen 5mg TID prn, etc. * start basal IV fluids - NS with KCL at 75ml/hr * per records whole brain XRT has been recommended in the past but she has declined such to date; seems now willing to consider such; I spoke with Dr Sidney Coats from rad onc and he will consult tomorrow * will also consult Dr Aldrich from oncology and Dr Shay from palliative care; patient/pt's receptive to speaking with palliative care; [place] message sent to Dr Aldrich/Dr Shay with synopsis of her presentation (2) Breast cancer, stage 4: Plan: initial dx 2021 triple positive disease right breast was followed by [facility] in the past most care has been at [facility] including neurosurgical care for her SERVICE ASSISTANT shunt has not had any chemotherapy since 02/2024 prognosis is very, very poor in light of #1 see discussion in #1 above (3) Metastatic cancer to brain: Plan: extensive intracranial mets - discovered late 2023 s/p SERVICE ASSISTANT shunt late 01/2024 at [facility] for increased ICP and cerebellar tonsillar herniation see #1 above (4) Metastasis to bone: Plan: known mets to the cervical spine and other locations per had PET-CT at [facility] some time in the last 2-3 months but I do not have that report see #1 above (5) Intractable nausea and vomiting: Plan: presumed 2nd to increased intra-cranial pressure respiratory BioFire fully negative doubt infectious in etiology but if any diarrhea send stool for Biofire testing if N/V continues despite antiemetics consider abdominal imaging to rule out ileus, obstruction, or other pathology will place on PPI for GI prophylaxis in light of high-dose steroid usage provide maintenance fluids and allow clear liquid diet, as tolerated (6) SERVICE ASSISTANT (ventriculoperitoneal) shunt status: Plan: see discussion in #1 above Plan DVT proph - until rest of imaging has been completed defer on chemical means; if remaining imaging shows no contraindication to chemical DVT proph consider lovenox 40mg daily care d/w Dr Sidney Coats by phone care d/w oncology/palliative care by [facility] correspondence care d/w ER provider I also made a call to [facility] via the transfer center to gain more information about the last time she saw oncology there they stated she saw oncology on 04/11 but the oncologist I spoke with did not have access to [facility] while on the call thus, no additional information could be obtained from that phone call regarding the details of those office visits last week prognosis is very, very poor History of Present Illness Chief Complaint: severe headache with intractable nausea/emesis Primary Care Provider: Gwendolyn Han MD 38yo female with known stage 4 triple positive breast cancer (right breast, diagnosed early 2021) with extensive intracranial metastatic disease and bony metastases - s/p SERVICE ASSISTANT shunt placement in late January 2024 due to cerebellar herniation/severe increased ICP from her brain mets - presents with severe left- sided parietal area headache, left-sided neck pain, and intractable nausea/emesis. Patient reports she has had several months of headache/neck pain but it had been mild and tolerable. However, she visited [facility] on , 04/11/24 to have MRI brain and to have her SERVICE ASSISTANT shunt checked and later that night developed worsening headache. She has been unable to eat/drink due to the persistent nausea. Her last episode of emesis was earlier this morning. CT head was completed in the ER today showing "Mild progression of metastatic disease with increase in significant mass effect within the posterior fossa, as described above. Increased effacement of the fourth ventricle with possible mild inferior displacement of the cerebellar tonsils." Following CT head Ms Burris was given 10mg of IV dexamethasone along with toradol & morphine. The ER providers then reached out to [facility]. By report oncology & neurosurgery reviewed her case. Specifically, Dr Rehman from neurosurgery and Dr Dos Santos from hematology/oncology did not feel that they could offer any interventions beyond what could be offered at [facility]. A joint decision was made that patient could be treated at [facility] & thus transfer to [facility] was deferred. During my admission assessment the patient & her did ask about consultation with radiation oncology. According to her whole brain radiation has been recommended in the past but to date Ms Burris has declined such. Mr Burris also mentioned that they never established care locally with [facility] oncology in the [place] office. Last chemotherapy was sometime in February 2024. Ms Burris denies any visual change. She denies paresthesias of the arms or legs. Denies motor weakness. She does report some dizziness (not true vertigo but a sensation of imbalance). She does feel like she could fall when trying to ambulate but has not had any mishaps/falls at home fortunately. With respect to her visit on 04/11 to the [facility] Neurosurgery clinic - pt & her were told that her SERVICE ASSISTANT shunt was working as expected. states the SERVICE ASSISTANT shunt was checked by the physician mail handler assistant. MRI brain was completed that day at [facility] as well. I was able to obtain a copy of the formal report from that MRI brain. Impression is as follows -- "1. Redemonstration of extensive metastatic disease throughout the brain, with slight interval increase in size of a few lesions. 2. Redemonstrated mass effect within the posterior fossa with complete effacement of the 4th ventricle, rightward midline shift, and downward cerebellar tonsillar herniation. 3. Right frontal approach intraventricular catheter with decompression of the ventricular system." Radiology also commented that most of the lesions had surrounding vasogenic edema especially surrounding a large left cerebellar met measuring 5cm x 3.7cm. This MRI was compared to MRI done on 02/06/24. Allergies Allergy/AdvReac Type Severity Reaction Status Date / Time heparin Allergy Verified 03/11/24 09:17 Home Medications Medication Instructions Recorded Confirmed Type multivitamin 1 tab PO DAILY 05/27/21 04/16/24 History acetaminophen 325 mg tablet 325 mg PO Q4H PRN Pain 04/16/24 04/16/24 History cholecalciferol (vitamin D3) 50 2,000 unit PO DAILY 04/16/24 04/16/24 History mcg (2,000 unit) tablet (Vitamin D3) ibuprofen 200 mg tablet (Advil) 200 mg PO DIRECTED PRN Pain 04/16/24 04/16/24 History Past Med/Surg History Problem List (Updated 04/16/24 @ 21:08 by Martinez Staples MD) SERVICE ASSISTANT (ventriculoperitoneal) shunt status Intractable nausea and vomiting Intractable headache Metastasis to bone Breast cancer, stage 4 History of invasive ductal carcinoma of 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 ASCUS with positive high risk HPV Right knee pain Cheilosis Osteolytic lesion due to metastasis Metastatic breast cancer (Chronic) Anemia (Acute) Medical History Encounter for pre-operative examination Acute hyponatremia Acute shoulder pain D&C performed at 8 weeks Surgical History History of brain shunt Port-A-Cath in place left chest history Leg fracture Ovarian cyst History of nasal surgery Family History Uncle Myocardial infarction Cancer Heart disease Denies family history of Ovarian cancer Prostate cancer Breast cancer Colorectal cancer Social History Smoking Status: Never smoker Hx Alcohol Use: No Hx Substance Use: No Preferred Language: Macedonian Communication Ability: Effective Visual Impairment: No Limitations Hearing Ability: Normal Exercise Science Internship Required: No Beliefs That Will Affect Care: None marital status: Current Living Situation: Spouse current occupational status: student How many Children do You have: 0 Other Information That Helps Us Care for You: No Feels Safe at Home: Yes Safety Concerns: Feels Safe At This Time during the past year weight has: remained stable Assistive Devices: Glasses Review of Systems Review of Systems: gen - poor appetite; fatigue/weakness; no fevers or rigors eyes - denies ocular symptoms or visual loss HENT - no recent URI; no sore throat, ear pain, or congestion neck - severe left-sided neck pain posteriorly; present "For months" but recently worse; stiff CV - no chest pain pulm - no cough or dyspnea GI - persistent N/V for several days; no abd pain; no blood in stool; no diarrhea - no dysuria musculo - denies joint pains neuro - intractable headache, left parietal region main location; left neck pain; denies motor weakness of any limb; denies paresthesias; denies discrete vertigo but feels "dizzy" and off balance no diplopia skin - no rash vascular - left sided port - no pain or issues Physical Exam Physical Exam: gen - awake, alert; able to give full history; looks uncomfortable eyes - pinpoint, but reactive; symmetric pupils; EOMI; no nystagmus HENT - right TM could not be seen 2nd cerumen; left TM clear; mouth - MM slightly dry chest - port L upper chest clean neck - she has a head tilt to the left; the paraspinal musculature on left is very tight/tender; with passive ROM of neck there is restricted movement; no spinous process tenderness to palpation heart - RRR, s1 s2, no murmur lungs - CTA b/l abd - soft NT ND BS+; no HSM ext - no peripheral edema vascular - pulses b/l feet 2+ neuro - no facial droop; EOMI; hearing intact b/l; sensation intact to light touch x 4 extremities; DTRs 1+ upper & lower exts; motor - 5/5 x 4 exts; I did not assess gait; no nystagmus psych - restricted affect but awake/alert skin - no rash Results & Data Results & Data Vital Signs (Past 12 Hours) Vital Signs Temp Pulse Pulse Resp BP BP Pulse Ox 04/16/24 17:41 78 16 122/82 97 04/16/24 15:12 70 20 95 04/16/24 14:30 75 16 139/91 98 04/16/24 14:21 68 20 133/91 96 04/16/24 13:54 68 15 04/16/24 13:42 68 30 H 04/16/24 13:30 124/95 04/16/24 13:30 124/95 04/16/24 13:18 71 22 04/16/24 13:12 82 14 99 04/16/24 13:03 76 20 98 04/16/24 13:00 119/85 04/16/24 13:00 119/85 04/16/24 12:39 72 20 04/16/24 11:47 70 04/16/24 11:39 79 16 109/78 97 04/16/24 10:02 36.3 C L 80 20 122/83 98 O2 Del Method 04/16/24 17:41 Room Air 04/16/24 15:12 Room Air 04/16/24 14:30 Room Air 04/16/24 14:21 Room Air 04/16/24 13:54 04/16/24 13:42 04/16/24 13:30 04/16/24 13:30 04/16/24 13:18 04/16/24 13:12 04/16/24 13:03 04/16/24 13:00 04/16/24 13:00 04/16/24 12:39 04/16/24 11:47 04/16/24 11:39 Room Air 04/16/24 10:02 Room Air Laboratory Results Laboratory Results - last 24 hr 04/16/24 04/16/24 04/16/24 10:50 11:35 14:35 WBC 5.85 RBC 4.09 L Hgb 11.9 L Hct 36.4 L MCV 89.0 MCH 29.1 MCHC 32.7 RDW Std Deviation 45.4 RDW Coeff of Abigail 14.0 Plt Count 284 MPV 8.9 L Immature Gran % (Auto) 0.2 Neut % (Auto) 77.1 Lymph % (Auto) 17.8 [place] % (Auto) 4.4 Eos % (Auto) 0.2 Baso % (Auto) 0.3 Neut # (Auto) 4.51 Lymph # (Auto) 1.04 L [place] # (Auto) 0.26 Eos # (Auto) 0.01 Baso # (Auto) 0.02 Immature Gran # (Auto) 0.01 Sodium 139 Potassium 3.6 Chloride 105 Carbon Dioxide 28 Anion Gap 6 BUN 22 Creatinine 0.53 L Est Cr Clr Drug Dosing 129.2 eGFR 119.83 BUN/Creatinine Ratio 41.5 H Glucose 114 H Calcium 9.3 Total Bilirubin 0.7 AST 24 ALT 21 Alkaline Phosphatase 45 Total Protein 7.1 Albumin 4.5 Globulin 2.6 Albumin/Globulin Ratio 1.7 Urine Color Yellow Urine Appearance Clear Urine pH 7.5 Ur Specific Jachin 1.025 Urine Protein Negative Urine Glucose (UA) Negative Urine Ketones Trace H Urine Blood Negative Urine Nitrite Negative Urine Bilirubin Negative Urine Urobilinogen Negative Ur Leukocyte Esterase Negative Adenovirus (PCR) Not Detected B. pertussis DNA (PCR) Not Detected B.parapertussis DNA PCR Not Detected C. pneumoniae DNA (PCR) Not Detected Coronavirus OC43 (PCR) Not Detected Coronavirus HKU1 (PCR) Not Detected Coronavirus 229E (PCR) Not Detected SARS-CoV-2 (PCR) Not Detected Coronavirus NL63 (PCR) Not Detected Human Metapneumovir PCR Not Detected Influenza Type A (PCR) Not Detected Influenza Type B (PCR) Not Detected M. pneumoniae (PCR) Not Detected Parainfluenza 1 (PCR) Not Detected Parainfluenza 2 (PCR) Not Detected Parainfluenza 3 (PCR) Not Detected Parainfluenza 4 (PCR) Not Detected RSV (PCR) Not Detected Entero/Rhino (PCR) Not Detected Diagnostic Findings Chest X-Ray 04/16/24 11:30 XR chest 1V portable CLINICAL HISTORY: viral sx COMPARISON STUDY: 07/23/2022 FINDINGS: Stable left chest port. Heart size and pulmonary vasculature are normal. No effusion or consolidation. IMPRESSION: No pneumonia seen. ACT 112: Negative or not required by law. Electronically signed by: Oswaldo Delgado M.D. 04/16/2024 11:[address] 04/16/24 12:19 CT OF THE HEAD WITHOUT CONTRAST CLINICAL HISTORY: Metastatic disease. Nausea, vomiting and headaches. COMPARISON STUDY: MRI of the brain February 01, 2024. Head CT February 04, 2024. CT DOSE: 625.8 mGy.cm TECHNIQUE: Helical axial images of the head were obtained without IV contrast. Automated exposure control was utilized for the study. A dose lowering technique was utilized adhering to the principles of ALARA. FINDINGS: No acute intracranial hemorrhage is present. Multiple hyperdense intra-axial lesions consistent with metastases are again noted. Associated vasogenic edema is present. Edema is greatest within the left cerebellar hemisphere. Effacement of the fourth ventricle has increased since exam of February 04, 2024. Overall, mass effect within the posterior fossa has increased. There may be inferior displacement of the cerebellar tonsils. Interv al placement of a right frontal ventriculostomy is noted. The lateral ventricles are slit-like. The tip is within the third ventricle. There are no extra-axial collections. There are no findings to suggest acute dural sinus stenosis or acute territorial infarct. IMPRESSION: 1. Interval placement of a right frontal ventriculostomy with decompression of the lateral and third ventricles. Slit-like ventricles raises the possibility of over shunting. 2. Mild progression of metastatic disease with increase in significant mass effect within the posterior fossa, as described above. Increased effacement of the fourth ventricle with possible mild inferior displacement of the cerebellar tonsils. ACT 112: Negative or not required by law. Electronically signed by: Kurtis Peralta M.D. 04/16/2024 1:49 PM Code Status & VTE Plan Code Status full code PG Care Time/CCT Total # of Minutes Spent Total Time Spent with Patient: Total time spent is greater than 50% in coordination of care (as documented) at patient's floor/unit and/or counseling patient: Coding Level of Care Code 80665 INT INP/OBS CARE 3/75MIN Diagnoses Intractable headache R51.9 Breast cancer, stage 4 C50.919 Metastatic cancer to brain C79.31 Metastasis to bone C79.51 Intractable nausea and vomiting R11.2 SERVICE ASSISTANT (ventriculoperitoneal) shunt status Z98.2
[2024-04-16] MEDS: DEXAMETHASONE SOD INJ 4 MG/ML VIAL IV STA (19:20)
[2024-04-16] MEDS: ACETAMINOPHEN 500 MG TAB PO SCH (20:35)
[2024-04-16] MEDS: PANTOprazole 40 MG TAB PO STA (20:35)
[2024-04-16] MEDS: NSS + 20MEQ KCL 20 MEQ/1,000 ML BAG IV SCH (20:36)
[2024-04-16] MEDS: MoRPHine SULFATE 2 MG/ML CARP IV PRN (22:20)
[2024-04-16] MEDS: ONDANSETRON INJ 2 MG/ML 2 ML VIAL IV PRN (22:20)
[2024-04-17] MEDS: dexAMETHasone 4 MG in SYRINGE 0 ML IV SCH (01:01)
[2024-04-17] MEDS: KETOROLAC TROMETHAMINE 15 MG/ML VIAL IV PRN (06:06)
--- NOTE | 2024-04-17 07:48 | Hospitalist Progress Note ---
Date of Service April 17, 2024 Assessment & Plan (1) Cancer related pain: (2) Metastatic cancer to brain: (3) Intractable nausea and vomiting: (4) Intractable headache: (5) Breast cancer, stage 4: Plan 38-year-old woman who has triple positive metastatic breast cancer with extensi ve brain mets as well as bone mets including c-spine who was admitted with severe left-sided headache and nausea related to increased intracranial pressure from brain metastases. Headache/neck pain is chronic but much worse past 5 days. She did have a WEAVING LOOM OPERATOR shunt placed late in January at [facility] to help with the situation, she had a recent clinic visit with neurosurgery and the shunt settings were appropriate. [facility] neurosurgeon was called last night on admission and he recommended treatment with dexamethasone and evaluation by radiation oncologist. According to my review of previous chart notes she had refused whole brain radiation in January at [facility]. I reviewed prior brain MRI 02/05 - bilateral multifocal brain mets, both cerebral and cerebellar with peritumoral edema, L cerebellar met causing mass effect on 4th ventricle and 4-5mm rightward midline shift of posterior fossa. I reviewed previous records - [facility] note from 02/29/24. Had gone off treatment fa ll 2023 because she wanted to get . Presented early 02/05 with headaches found to have brain metastases. Brain XRT was recommended which she declined. Admitted 02/04/24 with worsening symptoms and transferred to [facility] where she reportedly refused XRT and underwent WEAVING LOOM OPERATOR shunt to try to palliate. According to her she plans to resume chemo with [facility] next week. radiation oncology and palliative care was consulted by the admitting team. she is followed by [facility] medical oncology last visit 04/11, records are not currently available. PET-CT there a few months ago #cancer-related pain and nausea #extensive brain metastases #c-spine metastases - imaging in 2021 showed mets at C3, 4, 6, pathological compression fracture of C6 with retropulsion of bony fragments. PET-CT 01/06 without hypermetabolic bone lesions. pathologic fx at C6, T8, L4 headache has improved with morphine though it wears off, therefore Dr. Villeda ordered a CARTOGRAPHIC TECHNICIAN. Palliative care recs reviewed and I discussed poc with Dr. Villeda nausea had resolved early this morning after a few doses of dexamethasone, however, she is now refusing dexamethasone and does have ongoing nausea. Tolerated advancement of diet today. she prefers IV medications though has been eating today and is capable of taking oral medications. Monitor for any signs and symptoms of myelopathy related to c-spine mets. Radiation oncology recommendations reviewed, they recommend 10 treatments of whole brain radiation to help reduce her symptom burden - this is planned to start tomorrow her reported that she is to start chemotherapy within the week with her oncologist at [facility], this will need to be delayed until after she finishes her XRT My colleague had ordered CT neck and CTA head and neck because of the ongoing head/neck pain, however, she refused the study. I think it is fairly certain that the symptoms are related to her known metastases and it is safe to defer on the studies at this time DVT proph - enoxaparin. no evidence of ICH on CTs, risk of VTE is high and benefit outweighs the risk of prophylaxis dose anticoagulation Full code at this time - would not discuss - plans to continue treatment Admission and Anticipated Discharge Date Admission Date: April 16, 2024 Subjective nausea improved and feels like she is able to try eating left-sided neck pain and headache still present, improved after morphine denies pain other than headache she and her did not engage very much with me this morning, her stayed lying down in the room did not offer any information to me. I explained the plan of continuing dexamethasone to reduce the brain swelling and headache as well as the nausea, consult radiation oncology as well as palliative care Physical Exam Physical Exam: Last 24h vitals reviewed GEN: sleeping in bed, aroused to voice HEENT: pupils equal, sclerae anicteric, moist MM RESP: normal WOB, CTAB CV: reg no mrg. L chest port ABD: soft/nt/nd +BT : no martinez SKIN: warm and dry, no generalized rashes NEURO: flat affect, AOx person, place, and situation. Face symmetric, speech normal, moves 4 ext spontaneously and equally, appears very weak in general Results & Data Results & Data Vital Signs (Past 12 Hours) Vital Signs Temp Pulse Pulse Pulse Resp BP BP 04/17/24 03:59 36.4 C L 82 16 110/74 04/17/24 00:40 04/17/24 00:36 68 04/17/24 00:29 36.2 C L 63 18 112/77 04/17/24 00:08 60 13 116/86 04/17/24 00:00 60 13 116/86 04/16/24 23:48 61 04/16/24 23:36 04/16/24 23:12 65 12 111/79 04/16/24 23:12 111/79 04/16/24 23:12 111/79 04/16/24 23:12 111/79 04/16/24 22:55 60 04/16/24 22:48 76 17 04/16/24 22:21 83 15 04/16/24 22:08 04/16/24 22:07 36.5 C 76 18 04/16/24 21:03 67 13 04/16/24 20:00 95 H 18 04/16/24 19:54 92 H 23 BP Pulse Ox Pulse Ox O2 Del Method O2 Del Method 04/17/24 03:59 97 Room Air 04/17/24 00:40 Room Air 04/17/24 00:36 04/17/24 00:29 95 Room Air 04/17/24 00:08 97 Room Air 04/17/24 00:00 97 Room Air 04/16/24 23:48 04/16/24 23:36 96 Room Air 04/16/24 23:12 96 Room Air 04/16/24 23:12 04/16/24 23:12 04/16/24 23:12 04/16/24 22:55 04/16/24 22:48 04/16/24 22:21 04/16/24 22:08 Room Air 04/16/24 22:07 116/83 96 Room Air 04/16/24 21:03 04/16/24 20:00 04/16/24 19:54 Laboratory Results Laboratory Tests 04/16/24 10:50 WBC 5.85 Hgb 11.9 L Creatinine 0.53 L PG Care Time/CCT Total # of Minutes Spent Total Time Spent with Patient: Total time spent is greater than 50% in coordination of care (as documented) at patient's floor/unit and/or counseling patient: Coding Level of Care Code 96107 SUB INP/OBS CARE 3/50MIN Diagnoses Cancer related pain G89.3 Metastatic cancer to brain C79.31 Intractable nausea and vomiting R11.2 Intractable headache R51.9 Breast cancer, stage 4 C50.919
--- NOTE | 2024-04-17 08:28 | Radiation OncologyConsultation ---
Date of Consultation April 17, 2024 Assessment & Plan (1) Metastatic cancer to brain: Plan ATTENDIG ADDENDUM Assessment: Ms. Burris is a 38-year-old female with diffuse metastatic breast cancer. The patient previously received a course of palliative radiation therapy to the lumbar spine and pelvis in April 2021 (800 cGy, 1 fraction). The patient has been on multiple courses of systemic therapy. More recently, the patient has been following with medical oncology at [facility] in [place], [place]. The patient has had known metastatic disease to the brain for several months and is previously declined radiation therapy. The patient was seen in consultation by radiation oncology at [facility] who offered radiation therapy and the patient declined. 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 The patient is currently not on any systemic therapy for her breast cancer. The patient was recently admitted to the hospital for workup and management. We have been asked to evaluate her regarding the role of brain radiation therapy. Treatment Options: 1. Whole brain radiation therapy. 2. Best supportive care. Recommendation: Whole brain radiation therapy. 10 fractions. Plan: 1. CT simulation for treatment planning for radiation therapy. Plan to start radiation therapy tomorrow. 2. Continue dexamethasone as per primary medical team. 3. Continue follow-up with medical oncology in the outpatient setting. Inpatient medical oncology consultation input appreciated. 4. Patient has been evaluated by palliative care in the past. Inpatient palliative care medicine could be consulted if primary medical team feel that is needed. 5. Pain management as per primary medical team. 6. Patient and family encouraged to call us with any further questions or concerns. Rationale/Explanation of Treatment: I explained the indications, alternatives, benefits, risks and side effects of external beam radiation therapy. I explain the most common side effects including but not limited to skin erythema, skin break down, hair loss, radiation necrosis, fatigue, short-term memory loss, decreased neurocognitive performance, cerebral edema, hearing loss, damage to cochlea structures, seizures, damage to vision, loss of sensory and or motor function. I explained the treatment planning process and what to expect before during and after treatment. I have explained to the patient that there is an increased risk of overlap from the previous course of radiation therapy and the current course of radiation therapy which can increase the risk of all acute and late side effects of radiation therapy. History of Present Illness Reason for Consultation: Brain metastasis Requesting Physician: Vinita Vargas MD Attending Physician: Vinita Vargas MD History of Present Illness 03/2021. Patient found to be and having chest pain and right breast tenderness. 03/24/2021. CTA of chest. IMPRESSION: 1. No evidence of pulmonary embolism. 2. Multiple lytic foci are seen in the spine in this patient with history of chest and back pain. This may be secondary to process such as multiple myeloma or metastatic disease of unknown primary. 03/29/2021. Bilateral diagnostic mammogram with targeted ultrasound and biopsy. IMPRESSION: ACR BI-RADS CATEGORY 5: HIGHLY SUGGESTIVE OF MALIGNANCY, ULTRASOUND ACR BI-RADS CATEGORY 5: HIGHLY SUGGESTIVE OF MALIGNANCY. 1. Right breast ultrasound-guided core biopsy is recommended for a suspicious irregular 20 mm hypoechoic solid mass in the 1:00 posterior breast, correlating with a mammographic mass with associated distortion and calcification. 2. There is diffuse right breast skin thickening, concerning for inflammatory breast cancer. Could consider surgical skin punch biopsy, if will aid in management. 3. An inferior right axillary lymph node demonstrates more prominent cortical thickness compared to other visualized lymph nodes, concerning for metastatic disease. Fine-needle aspiration and/or core needle biopsy of this lymph node is recommended. 4. These results and recommendations were discussed with the patient at the time of the exam. At the time of ultrasound and image review, I discussed with the patient that we routinely place biopsy markers at each site of biopsy, for further reference, particularly if the patient needs surgery or neoadjuvant chemotherapy. After extensive discussion with the patient and her on the phone, she does not feel comfortable with marker placement at this time. Therefore, I altered plans to sample the suspicious mass in the right 1:00 breast. If this mass is malignant, we will bring her back to the department for biopsy marker placement and also to sample the right axillary lymph node with prominent cortex and subsequent clip placement as well. 5. The right breast biopsy was performed during the same appointment and please refer to a separate report for full detail. 03/29/2021. Breast, right, 1 o'clock, core biopsy: - Invasive ductal carcinoma, grade 3. - Estrogen Receptor: Positive (98%, intermediate-strong intensity, H score 245). - Progesterone Receptor: Positive (10%, variable intensity, H score 20). - HER2/codi Immunohistochemistry: Positive (score 3+). - Ki-67 Proliferation Index: 60% (high). - Maximum linear extent of tumor: 17 mm. - See comment. Her2 positive. 04/02/2021. Lymph node, right, ultrasound guided aspiration: - Malignant cells present consistent with metastatic carcinoma, breast primary. - See comment. 04/08/2021. Medical oncology consultation with Dr. Han. Completion of staging work-up and urgent evaluation by obstetrics/gynecology regarding potential termination of prior to initiating chemotherapy. 04/09/2021. Patient admitted to hospital due to signifcant pain control issues and further work up and evaluation. 04/09/2021. CT of chest. IMPRESSION: 1. Extensive skeletal metastatic disease with slight progression since CT of March 24, 2021. Redemonstration of a T8 pathologic fracture and slight epidural extension at the T10 level. No severe central canal stenosis by CT. Mild to moderate multilevel neural foraminal stenosis due to skeletal lesions. 2. Right breast mass with asymmetric right breast skin thickening consistent with primary malignancy. 3. New 5 mm groundglass right lower lobe nodule and a 1 cm right hepatic lobe lesion. These are indeterminate. 04/09/2021. CT of abdomen/pelvis. IMPRESSION: 1. No acute infectious or inflammatory findings are seen in the abdomen or pelvis. 2. There is evidence of diffuse osteolytic metastatic disease as detailed above noting a minimal pathologic superior endplate compression fracture of L4. 3. Rectosigmoid fecal retention and moderate constipation. 4. Significant dermal thickening is noted in the right breast. 5. Left-sided nephrolithiasis. 6. The uterus is enlarged and heterogeneous noting an intrauterine gestation. 7. Trace nonspecific free fluid is seen in the cul-de-sac. 8. An 11 mm indeterminant hypodensity in the posterior right lobe of the liver likely represents a hemangioma but is incompletely characterized. 9. Additional findings as above. 04/09/2021. Transvaginal ultrasound. Impression: Single live intrauterine . Based on crown-rump length, the estimated sonographic gestational age is 8 weeks 3 days. Small subchorionic hemorrhage is noted. 04/13/2021. Status post D and E. 04/13/2021. Status post completion of palliative radiation therapy to the lumbar spine and pelvis. She received 800 cGy in 1 fraction. 04/15/2021. Initiation of chemotherapy. Docetaxel, trastuzumab, and pertuzumab every 3 weeks. She will receive 6 cycles. 04/20/2021. Status post bone biopsy revealing metastatic carcinoma consistent with breast primary. 04/21/2021-08/04/2021. 6 cycles of TCHP. 04/27/2021. Bone scan. Radiotracer uptake with in the left side of the calvarium, left orbital rim, ribs, spine and pelvis consistent with metastatic disease. 05/06/2021. MRI of the brain. Negative for metastasis. 05/27/2021. Radiation oncology follow-up. Patient did note significant improvement in the pain from bony metastasis. She had multiple areas of disease. She did see orthopedics who felt that she did not require surgery. She completed a telehealth visit with medical oncology at [facility] and recommendations were given for chemotherapy. 06/21/2021. PET/CT showed good response. 09/08/2021. PET/CT showing good response. 12/28/2022. PET/CT revealed no evidence of hypermetabolic metastatic disease with redemonstration of multiple sclerotic lesions without abnormal FDG uptake. 02/01/2023-01/10/2024. Epratuzumab-trastuzumab. 05/2023-11/2023. Tamoxifen. 01/22/2024. Brain MRI showed multiple metastatic lesions affecting both the cerebellum and cerebrum with associated peritumoral edema of variable amounts prominently in the left cerebellum with mass effect on the fourth ventricle with rightward-5 mm midline shift of the posterior fossa structures. 02/04/2024. Worsening symptoms with headaches. CT revealed increased edema in the posterior fossa with stable mass effect of the midbrain and fourth ventricle. Findings concerning for developing hydrocephalus with mild ventricular dilatation. Transferred to [facility] neurosurgical recommendations. Debulking surgery was discussed. Patient declined. 02/13/2024. KELLY MACHINE OPERATOR shunt. 03/27/2024. Radiation oncology consultation (Dr. Gaona). Patient had wished to have breast directed treatment. She was strongly urged to have brain directed treatment. She was undecided. She will return if she made the decision for brain treatment. 04/11/2024. MRI of the brain performed at [facility]. 1. Redemonstration of extensive metastatic disease throughout the brain, with slight interval increase in size of a few lesions, as described above. 2. Redemonstrated mass effect within the posterior fossa with complete effacement of the 4th ventricle, rightward midline shift, and downward cerebellar tonsillar herniation. 3. Right frontal approach intraventricular catheter with decompression of the ventricular system. 04/16/2024. Emergency room evaluation due to increasing headaches. 04/16/2024. CT of the head. 1. Interval placement of a right frontal ventriculostomy with decompression of the lateral and third ventricles. Slit-like ventricles raises the possibility of over shunting. 2. Mild progression of metastatic disease with increase in significant mass effect within the posterior fossa, as described above. Increased effacement of the fourth ventricle with possible mild inferior displacement of the cerebellar tonsils. 04/17/2024. Radiation oncology consultation (Dr. Lorie Coats). Patient is currently an inpatient. Had presented to the emergency room due to severe headaches. These are mainly concentrated in the occipital region. She has a pain level of 8 out of 10. Upon admission to the emergency room she was started on steroid therapy. She had associated nausea and vomiting with the headaches. This has now resolved. She has not had any issues in regards to function of the upper or lower extremities. She does have fatigue. She has some discomfort of the neck. Our office was consulted in regards to the issue of brain metastasis and ongoing symptoms. Allergies Allergy/AdvReac Type Severity Reaction Status Date / Time heparin Allergy Verified 03/11/24 09:17 Home Medications Medication Instructions Recorded Confirmed Type multivitamin 1 tab PO DAILY 05/27/21 04/16/24 History acetaminophen 325 mg tablet 325 mg PO Q4H PRN Pain 04/16/24 04/16/24 History cholecalciferol (vitamin D3) 50 2,000 unit PO DAILY 04/16/24 04/16/24 History mcg (2,000 unit) tablet (Vitamin D3) ibuprofen 200 mg tablet (Advil) 200 mg PO DIRECTED PRN Pain 04/16/24 04/16/24 History Patient History Medical History Encounter for pre-operative examination Acute hyponatremia Acute shoulder pain D&C performed at 8 weeks Surgical History History of brain shunt Port-A-Cath in place left chest history Leg fracture Ovarian cyst History of nasal surgery Family History Uncle Myocardial infarction Cancer Heart disease Denies family history of Ovarian cancer Prostate cancer Breast cancer Colorectal cancer Social History Smoking Status: Never smoker Hx Alcohol Use: No Hx Substance Use: No Preferred Language: Danish Communication Ability: Effective Visual Impairment: No Limitations Hearing Ability: Normal Sushi Chef Required: No Beliefs That Will Affect Care: None marital status: Current Living Situation: Spouse current occupational status: student How many Children do You have: 0 Other Information That Helps Us Care for You: No Feels Safe at Home: Yes Safety Concerns: Feels Safe At This Time during the past year weight has: remained stable Assistive Devices: Glasses Radiation History Diagnosis: Metastatic breast cancer. Treatment: 04/13/2021. Status post completion of palliative radiation therapy to the lumbar spine and pelvis. She received 800 cGy in 1 fraction. Physical Exam Constitutional: WD/WN, vitals as above Eyes: PERRL, conjunctivae normal, anicteric sclerae ENMT: Ears: no hearing impairment Neck: trachea midline, no thyromegaly Respiratory: normal respiratory effort, lungs clear to auscultation Cardiovascular: RRR, no murmur, no edema Gastrointestinal (Abdomen): Inspection/Auscultation: abdomen not distended Skin: no rashes, warm and dry Neurologic: Normal strength and coordination of upper and lower extremities. Psychiatric: A+Ox3, euthymic affect Results (Rad Onc) Imaging Studies: were reviewed and pertinent findings noted in HPI Time Spent Midlevel I spent [15] minutes in preparation for this evaluation including reviewing all the clinical records, reviewing laboratory studies, pathology reports and imaging results. I spent [20] minutes with direct face to face interaction with the patient and/ or family including performing a physical exam and answering all questions. I spent [20] minutes documenting this patient's visit. Attending I spent 20 minutes in preparation for this consultation including reviewing all the clinical records, reviewing laboratory studies, pathology reports and imaging results. I spent 20 minutes with direct face to face interaction with the patient and/or family including performing a physical exam and answering all questions. I spent 20 minutes documenting this patient's visit. PG Care Time/CCT Total # of Minutes Spent Total Time Spent with Patient: Total time spent is greater than 50% in coordination of care (as documented) at patient's floor/unit and/or counseling patient: Coding [place] [address] IN/OBS CONSULT LVL 5,80M Patient Type Established History Detailed Exam Problem Focused Medical Decision Making Moderate Complexity Diagnoses Metastatic cancer to brain C79.31
[2024-04-17] MEDS ORDERED: NALOXONE HCL 0.4 MG/1 ML VIAL/CARP IV PRN (10:56)
[2024-04-17] MEDS: PANTOprazole 40 MG TAB PO SCH (11:24)
[2024-04-17] MEDS: MULTIVITAMIN TAB PO SCH (11:24)
[2024-04-17] MEDS: CHOLECALCIFEROL 25 MCG (1000 UNITS) TAB PO SCH (11:24)
[2024-04-17] MEDS: MoRPHine SULFATE PCA 30 MG/30 ML IV PRN (12:03)
--- NOTE | 2024-04-17 13:32 | Palliative Care Consultation ---
Date of Consultation April 17, 2024 Assessment & Plan (1) Cancer related pain: Headache from brain mets Presently using as needed MS 2 mg IV without any sustained relief. Will initiate an MS BLOW TORCH BURNER only as follows: MS 2 mg Q 20 minutes as needed BLOW TORCH BURNER only. No continuous rate. Hold for somnolence or respiratory rate less than 14. Narcan protocol in place. Patient remains a full code. I offered Aloxi to help with her cancer related nausea, however she declines this at this time and states she feels better when she vomits and would prefer to leave this regimen unchanged. She has been refusing doses of her Decadron as well. Gently provided some education to patient and family with regards to the role of Decadron and brain mets and how it may help relieve her symptoms including the headache and the nausea and vomiting. At this time however she remains firm that she does not wish to take the Decadron. She is initiating whole brain radiation beginning tomorrow. (2) Headache: Headache chronicity pattern: chronic headache Headache type: unspecified Intractability: not intractable Qualified Code(s): R51.9 - Headache, unspecified; G89.29 - Other chronic pain (3) Advanced care planning/counseling discussion: A [id number] advance care planning discussion was held with patient, her and family (female member) at the bedside. This discussion was approximately 45 minutes long. Patient is overall reluctant to discuss anything and only details her pain. shares the findings of the brain MRI but he perceives that "overall the brain MRI showed things were getting better and may be something small was worse." They have not really dived into advance care planning discussions. She has elected full code and is unwilling to discuss CPR related issues at this time. She feels that the radiation therapy will be helpful intervention and she plans to resume her chemotherapy, which she tells me is scheduled for next week. We discussed that her whole brain radiation therapy is a 10 session duration and states that they were advised she cannot have chemo until she finishes radiation first. Throughout the duration of my visit, patient's and family repeatedly referred to wanting to seek clarification of any recommendations or advice given by any medical teams with providers at other facilities. states he is going to call Dr. Morejon at [facility] to review the recommendations made here so far and determine which of those they will continue to take versus decline, for example, she declines the Decadron at this time. Extensive psychosocial support and reassurance was provided. Reassured patient the overall goal is to make sure that we are honoring her wishes and preferences throughout this course of illness. Reviewed that we will see how she does with the BLOW TORCH BURNER for the next 24 to 48 hours before making a determination of what best to convert her to. She is able to take p.o. at this time but feels because of her nausea she would prefer IV methods. At the time of my visit, she was eating breakfast: Bread with cream cheese, fresh cut fruit and dates. She is swallowing safely without any coughing, sputtering or aspiration. I am hopeful that with the radiation therapy being initiated quickly, her headache and pain will start to chacho and perhaps her nausea will also further subside. The goal will be to transition her to an oral regimen that she can continue in the outpatient setting. Patient was advised we offer outpatient palliative medicine follow-up. [facility] in the radiation oncology clinic or she is welcome to transition her care to the [facility] palliative medicine team at [place] or [facility] per her preferences. (4) Palliative care by specialist: Introduced Palliative Medicine and explained our role in patient's care. Patient and/or family were receptive to palliative services for goals of care discussi ons. Reviewed we are different from hospice, a home health nurse visiting service. (5) Metastatic cancer to brain: (6) Breast cancer, stage 4: (7) Metastasis to bone: Plan As above Thank you for allowing us to participate in the ongoing care of this patient. Please page with any additional concerns. Mariza Shay DNP Director, Palliative Medicine History of Present Illness Reason for Consultation: GO, cancer pain mgt Attending Physician: Vinita Vargas MD History of Present Illness Padmaja is a 38-year-old female with metastatic triple positive breast cancer,De Sanjeev metastatic triple positive breast cancer, ER strongly + 90%, MA + 10- 20%, and HER2 3+, with multiple bony Mets, and recently brain metastasis s/p CORPORATE COUNSEL Shunt. (Mar 2021) Molecular testing (somatic) :via [facility] revealed Her2/codi positive, ER/MA positive PIK3CA mutation She complains of very severe posterior left neck pain. She can palpate a lump in this area. She states the pain has been progressively worsening and ultimately she is sought an emergency department evaluation. She describes this as a very severe and chronic headache, left-sided neck pain which has been worsening for the past week. The pain starts at the base of her left neck and the headache spreads into the left parietal region. She feels that is aching and throbbing at times. Sometimes stabbing. Does not appear to be affecting her vision. She has intermittent nausea and emesis which she feels relieved her nausea. Suspect this is likely due to the increased ICP. She has had a CORPORATE COUNSEL shunt in place since January 2024 from [facility]. She was seen in [place] on 04/11/2024 and the shunt was checked by neurosurgery and in good working order. CT of the head done on admission demonstrates findings similar to the MRI of the brain done last week at [facility] (see below) [facility] provider spoke with the [facility] team at the time of admission and [facility] neurosurgery was involved in the call. At that time neurosurgery recommended initiating steroid therapy and felt that there was nothing further they could offer at their facility beyond what we were able to do here about any. She received a dose of IV Decadron 10 Mg x 1 in the ED and now has 4 mg IV every 6 hours ordered but has been refusing most of these doses per nursing. She has been getting morphine IV 2 mg every 2 hours as needed for pain and reports it is not lasting long enough for providing enough relief. She states the pain remains very severe and intense. She would like this pain improved. She was seen earlier this morning by radiation oncology and will be starting whole brain radiation. A total of 10 sessions is planned. Padmaja's care has been complicated by multiple treatment start/stops, declinatio n, breaks and delays/deferments: * She stopped Xeloda, tucatinib after she took it only for 2 days because of GI side effects with nausea, vomiting. She refused to resume her medications as instructed by [facility] * Patient also declined her last dose of Herceptin * She was consented to start Enhertu, and she is highly considering it, but she still wanted to check with 1 of the doctors in her home country [facility]. Print out of Enheru was given to patient and her . * Patient has been evaluated in multiple institutes, and with multiple different medical oncologists. * She was evaluated at [facility], [facility], [facility] (Dr. Perez.), [facility] (Guille), [facility] She has had consultation with Maternal- Medicine at [facility], Dr. Manuela Mai. 04/11/24 [facility]/Dr Joe: Plan: * I had a very lengthy discussion with the patient, the about her disease, prognosis, treatment options. * She stopped Xeloda, tucatinib after she took it only for 2 days because of GI side effects with nausea, vomiting. She refused to resume her medications as instructed by my team during my time off. * Had brain MRI earlier today, report still pending. From my review, brain metastasis seems to be grossly stable, but we need to wait for her final report, and may need to discuss in brain MDC. * Patient, and had many questions, all answered to the level of their satisfaction. * We discussed some facts and went through some options: * Considering all the information we have, we should deal with her case as metastatic HER2 positive breast cancer metastatic to the brain, and treat accordingly. Patient still has hard time to believe what she has in her brain is cancer. I offered her brain biopsy, but she declined. * If no intervention, her brain metastases will continue to grow, and unfortunately will affect her mental status, can cause seizures, ICU admission, and unfortunately high likely will end her life. * I clearly informed patient that her cause of we will be her brain metastases, and we should focus on options to control her disease in the brain. * I highly instructed surgical resection, or radiation therapy to her brain metastasis, she still clearly and persistently declining those 2 options. * We discussed that if she is not interested in receiving any systemic ther apy, I would recommend hospice * We discussed systemic options at this point including dose reduction of her current plan of Xeloda, and tucatinib, versus starting Enhertu. * Patient also declined her last dose of Herceptin earlier this month, and she refused to take it today. * She was consented to start Enhertu, and she is highly considering it, but she still wanted to check with 1 of the doctors in her home country [place]. Print out of Enheru was given to patient and her . * I wanted to start her treatment in 1 week, but she requested to delay treatment for 2 weeks from today. * She asked me about role of radiation therapy, and surgery to her breast. I informed her that in the setting of metastatic disease local control to her breast will not affect her overall survival. At 1 point she was interested in receiving radiation to her breast but definitely not to the brain. I informed her if she consider palliative radiation to right breast, it is better to do it now before we start Enhertu. I offered to discuss with Radiation Oncology if she is interested in radiation to her breast, but she also declined radiation to her breast which is reasonable. Padmaja lives in the [place]. She has been for about 5 years, no children - she was in 2021 when she was diagnosed with breast cancer, and was terminated on week 7. She lives with her , an distribution engineering technologist. Diagnosis/Treatment history from outside records: 1. She had presented to her PCP on 03/22/2021 with chest pain, right breast tenderness and positive test.She was 7 weeks when the breast cancer diagnosis was confirmed. was terminated to start breast cancer treatment. 2. CT Chest Angiogram to evaluate for PE obtained on 03/24/2021 revealed no PE but incidentally noted multiple lytic foci in the spine. On second review by radiology, right breast mass was also noted. 3. On 03/29/2021, bilateral diagnostic mammogram with right breast ultrasound revealed suspicious irregular 20 mm hypoechoic solid mass in the 1:00 posterior breast, correlating with a mammographic mass with associated distortion and calcification, diffuse right breast skin thickening, concerning for inflammatory breast cancer abnormal appearing right axillary lymph node. 4. Right breast core biopsy on 03/29/21 revealed grade 3 invasive ductal carcinoma, ER Positive, MA Positive and HER2/codi Positive by IHC with Ki-67 of 60% . 5. Right axillary LN biopsy on 04/02/21 was positive for metastatic disease. 6. She was evaluated by Dr. Aneta Perez of breast oncology at [facility] on 04/08/21 who discussed treatment options in the setting of . 7. Seen at [facility] on 04/09/2021. Discussed treatment options at that time. Patient declined termination. Complained of severe upper and lower back pain. 8. Admitted to [facility] on 04/06/2021 with intractable lower back pain. Decided to go ahead with termination. 9. CT CAP on 04/09/2021 revealeddiffuse osteolytic metastatic disease, right breast dermal thickening and 11 mm indeterminant hypodensity in the posterior right lobe of the liver likely representing hemangioma but is incompletely characterized. 10. D&Eperformed while inpatient on 04/13/2021. Received 1 fraction (800cGy) of palliative radiation to the lumbar spine and sacrum on 04/13/2021. 11. MRI lumbar spine on 04/14/2021 revealed extensive osseous metastatic disease throughout the visualized lumbosacral spine and bony pelvis as well as mild acute to subacute pathologic compression fracture of L4 12.MRI thoracic spine on 04/14/2021 revealed extensive metastatic disease within the thoracic spine with T8 pathologic fracture with 40% loss of vertebral body height 13.MRI cervical spine on 04/14/2021 revealed enhancing metastatic disease involving the C3, C4 and C6 vertebral bodies as well as pathologic compression fracture of C6 with retropulsion of bone fragments into the spinal canal 14. Pretreatment CA 15-3 of 1557; CA 2729 of 2916. On 04/15/2021 she received cycle #1 of docetaxel while inpatient . On 04/21/21She received Cycle 1 of trastuzumab/Pertuzumab and Xgeva 15. Bone biopsy on 04/20/2021 confirmed metastatic carcinoma consistent with breast primary. 16. Bone scan on 04/27/2021 revealed foci of radiotracer uptake within the left side of the calvarium, left orbital rim, ribs, spine and pelvis consistent with metastatic disease. MRI brain on 05/06/2021 was negative for brain metastatic disease 17. Mid-treatment PET/CT on 06/21/2021 revealed great response to treatment. 18. Completed 6 cycles of THP on 08/04/2021. Started maintenance Phesgo (Trastuzumab/pertuzumab SQ) on 08/26/2021 19. Restaging PET/CT on 09/08/2021 revealed great response to treatment with no FDG avid metastatic disease identified, minimal FDG uptake within the primary right breast lesion which had decreased in size and FDG uptake from prior scans as well as slight increase in sclerosis of skeletal lesions with no significant FDG uptake suggesting treated metastasis and no evidence of new skeletal lesions 20. She decided to discontinue systemic therapy in because she desired despite being advised against this. 21.Labs obtained on 11/11/2022 revealed increase in CA 2729 to 48 and normal CA 15-3 of 23; on 12/05/2022 CA 2729 was 57 and CA 15-3 of 25; on 01/11/2023 CA 2729 was 92 and CA 153 was 44 22.PET/CT on 12/28/2022 revealed no evidence of hypermetabolic metastatic disease with redemonstration of multiplesclerotic lesions without abnormal FDG avid 23.After multiple discussions with patient and her regarding rising tumor markers and my concern fordisease progression, she restarted phesgoand Xgevaon 02/01/2023. After multiple conversations, finally started tamoxifenin May, 24.Bilateral mammogram obtained on 08/25/2023 due to rising tumor markers and unremarkable PET/CT revealed decrease in size of previously biopsied mass, resolution of diffuse right breast skin thickening consistent with treatment response and new grouped pleomorphic calcifications seen in the biopsy sites in the right 12-1 o'clock breast measuring approximately 2.7 x 2.8 x 2.2 cm, morphologically normal axillary lymph node previously biopsied consistent with treatment response. She is being scheduled for stereotactic biopsy of new breast calcifications. 25.Sheunderwent stereotactic biopsy of newbreast calcifications on 09/14/2023 which showed high grade DCIS ER Positive (moderate staining-75%), MA Positive (weak staining-2%) H/O from [facility]: 03/29/21- Right breast biopsy. Reviewed as invasive ductal carcinoma, grade 3, ER + (98%, intermediate to strong intensity), MA + (10%, variable intensity), HER- 2/codi positive (3+), Ki-67 60%. The tumor was sent for HER-2 evaluation by FISH at [facility] and was amplified with HER-2: ROXI 7 ratio 3.0, average HER-2 signals per nucleus 12.5. 04/02/21- Right axillary lymph node biopsy. The pathology was positive for malignant cells consistent with metastatic carcinoma. 04/14/21- She was able to complete MRI of the cervical, thoracic, and lumbar spine with and without contrast. The findings were of extensive metastatic disease. The reports are scanned in epic. Of note, the cervical spine MRI shows enhancing metastatic disease involving C3, C4, and C6, and a pathologic compression fracture at C6 with retropulsion of bone fragments into the spinal canal. No evidence of compression upon the spinal cord at this level. No enhancement within the spinal cord. The thoracic spine MRI revealed again extensive metastatic disease within the thoracic spine, and a T8 pathologic fracture with 40% loss of vertebral height. No retropulsion. No epidural extension of tumor. At most mild multilevel neuroforaminal narrowing. The thoracic cord signal and caliber was normal. The LS spine MRI revealed extensive osseous metastatic disease within the lumbosacral spine and bony pelvis. Mild acute to subacute pathologic fracture of L4. No enhancing lesions identified in the central canal and no evidence of epidural extension of tumor. She was initiated on Cymbalta,, Lidoderm patch, and Flexeril. She was started on dexamethasone, which was tapered over 1 to 2 weeks. 04/15/21- Genetic testing, [facility] 29 genes- Negative. 04/15/21 CBC showed hemoglobin of 7.3, hematocrit 22.6. White cell count was 6.54, platelet 220 9K. Most recent CBC on 04/17/2021 showed a hemoglobin level of 10.0, hematocrit 30.9. LFTs on 04/20/2021 were normal. Calcium level was 10.4, normalized with hydration. 04/15/21- She had a Mediport inserted during hospitalization. She received a dose of docetaxel on 04/15/2021 while inpatient, and Herceptin and Perjeta on 04/21/2021 after her discharge. She was on a tapering course of dexamethasone, ultimately stopped on 04/22/2021. 04/20/21- A sternal bone biopsy was done with preliminary report positive for metastatic breast cancer. 04/20/21- Sternal biopsy: positive for cancer, per verbal communication with Dr. Han. 06/21/21- PET scan: revealed decrease in size and increasing sclerosis and extensive multifocal osseous metastatic disease, compared with the 04/09/2021 study, lesion currently only mildly FDG avid. Dermal thickening and soft tissue nodule in the right breast have completely resolved. No abnormal FDG uptake identified in the right breast. The liver lesion previously seen on contrast- enhanced CT scan is no longer visualized. Additional findings were left-sided nephrolithiasis. There is increasing collapse of T8 and L4 vertebral bodies as compared with previous. Mild pathologic compression deformity of T11, no from previous, likely acute to subacute. She had another PET scan 2 weeks ago, which reportedly is negative for activity. 08/04/21- Palliative chemotherapy :TH-P, x6 cycles. She is receiving monthly Xgeva. Dr. Han prescribed tamoxifen and only took it for less than 1 month (most likely 2 weeks) 08/04/21- Initiated Phesgo. 06/05- Discontinued Phesgo (systemic therapy) due to not wanting to be in medication for the rest of her life and pursuing despite being advised against this. Dr. Aneta Perez (From [facility]) did not typically recommend interrupting treatment for the sake of , as there is significant risk for flareup of her disease. In the context of metastatic disease, their team explained that may be unsafe, especially if she develops progressive disease during . Their team recommend avoiding while receiving trastuzumab and pertuzumab. She had a telemedicine visit with neurosurgeon at [facility]. Surgery was not recommended at this time. There was significant disease burden in her spine, with several compression fractures. She has a neurosurgery consultation appointment at [facility]. Dr. Chaney at [facility] did not recommend kyphoplasty for hoplasty for the C6 compression fracture. Dr. Chaney recommended repeat MRI of the cervical spine with and without contrast, and CT scan at 7 weeks, for potential surgical discussion. 09/23/22- She arrived at the [facility] clinic today, expressing her concern about persistent fatigue that has affected her since last year, with no signs of improvement. Her determination to regain her energy levels is evident, despite her inclination to indulge in excessive sleep. She describes a discomfort characterized by tension and pain on the right side of her neck and shoulder. This condition has had a profound impact on her daily life, affecting her being unable to resume her work responsibilities. Denies taking pain medications. She shares that her oncologist advised halting her menstrual cycle to facilitate appropriate treatment. However, her menstrual cycle resumed post-treatment. The patient expressed a preference to sustain her menstrual cycles and, as a result, continues to experience monthly menstruation. " 01/23/[address] C/A/P :1. Widespread osseous metastases.2. C6 vertebra plana deformity partially visualized, age indeterminate.3. T8 compression fracture deformity with 70 percent height loss. Age indeterminate.4. L4 compression fracture deformity with mild bony retropulsion. Age indeterminate.5. Mild T11 compression fracture deformity, age indeterminate 02/06/2024 Imaging BRAIN MRI:1. Relatively stable intracranial metastatic disease as described above compared to outside MRI from 01/22/2024. The largest dural-based metastasis in the left lateral aspect of the posterior cranial fossa measures up to 4.9 cm and in conjunction with surrounding vasogenic edema is producing significant mass effect resulting in mild superior vermian and inferior cerebellar tonsillar herniation, as well as slight obstructive supratentorial ventriculomegaly.2. Stable nonenhancing metastatic disease in the cervical and upper thoracic spine as described above. Chronic pathological compression fracture (vertebral plana) of C6 and destructive changes in the C6 articular facets, which is causing perched right C5 and C7 facets.3. Mild degenerative changes in cervical spine without spinal canal stenosis or significant neural foraminal narrowing. Current treatment: * Enhertu (Fam-trastuzumab deruxtecan): 5.4 mg/kg once every 3 weeks; continue until disease progression or unacceptable toxicity (Anticipate to start in 2 weeks); * New Oncology Treatment Plan Protocol: BREAST - OP Fam-trastuzumab deruxtecan- nxki (Breast) [id number] --- Number of cycles: 20 --- Weight based dosing: Most recent weight (actual weight) --- Intent of chemotherapy treatment: Palliative - * Xgeva 120 mg Q monthly for bony mets Treatment rendered: * Palliative XRT, 1 fraction (800cGy) to the lumbar spine and sacrum (04/13/2021). * Palliative Syetmeic Tx with THP [docetaxel, trastuzumab, and pertuzumab] x 6 cycles (04/21/21- 08/04/2021) * Maintenance Phesgo (Trastuzumab/pertuzumab SQ) (08/26/2021- )---> Pt requested to stop because she desired .---> Resumed again (02/01/2023- Nov 2023)--> Stopped again for plans. * Tamoxifen(May,- Nov 2023) * CORPORATE COUNSEL (Ventricular Peritoneal) Shunt d/t hydrocephalus (02/13/24) * Xgeva--->Q 1 months, then Q 3 months (April 2021- Nov 2023) * Herceptin + tucatinib + Xeloda (Cycle is 21 Ds):Herceptin 8 mg/kg followed by 6 mg/kg D1, Tucatinib 300 mg Po BID on D1 -21 , Xeloda 1000 mg/m2 Po BID on D1-14 ---> Stopped after 2 days d/t poor tolerance, and she refused dose reduction. Treatment Summary 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) 01/23/2024 Initial Diagnosis 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) 03/04/2024 - Chemotherapy TUCATINIB-CAPECITABINE (BREAST) [id number] Stage IV breast cancer in female (HCC) 02/05/2024 Initial Diagnosis Stage IV breast cancer in female (HCC) 03/04/2024 - Chemotherapy TUCATINIB-CAPECITABINE (BREAST) [id number] 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 Right Breast Biopsy Pathology 3: BREAST, RIGHT, 1 O'CLOCK, CORE BIOPSY ([id number]; 03/29/2021; 11 Slides): Invasive mammary carcinoma with ductal and lobular features, grade 3. Biomarkers: ER: Positive, 90%, 2+, MA: Positive, 10-20%, 1-2+, HER2 (IHC): Positive, 3+, HER2 (FISH): Positive; HER2:CEN17 = 3.0, average HER2 copy number >/=4.0 (per report), KI-67: 50-60% Allergies Allergy/AdvReac Type Severity Reaction Status Date / Time heparin Allergy Verified 03/11/24 09:17 Home Medications Medication Instructions Recorded Confirmed Type multivitamin 1 tab PO DAILY 05/27/21 04/16/24 History acetaminophen 325 mg tablet 325 mg PO Q4H PRN Pain 04/16/24 04/16/24 History cholecalciferol (vitamin D3) 50 2,000 unit PO DAILY 04/16/24 04/16/24 History mcg (2,000 unit) tablet (Vitamin D3) ibuprofen 200 mg tablet (Advil) 200 mg PO DIRECTED PRN Pain 04/16/24 04/16/24 History Patient History Medical History Encounter for pre-operative examination Acute hyponatremia Acute shoulder pain D&C performed at 8 weeks Surgical History History of brain shunt Port-A-Cath in place left chest history Leg fracture Ovarian cyst History of nasal surgery Family History Uncle Myocardial infarction Cancer Heart disease Denies family history of Ovarian cancer Prostate cancer Breast cancer Colorectal cancer Social History Smoking Status: Never smoker Hx Alcohol Use: No Hx Substance Use: No Preferred Language: Maltese Communication Ability: Effective Visual Impairment: No Limitations Hearing Ability: Normal Grocery Store Associate Required: No Beliefs That Will Affect Care: None marital status: Current Living Situation: Spouse current occupational status: student How many Children do You have: 0 Other Information That Helps Us Care for You: No Feels Safe at Home: Yes Safety Concerns: Feels Safe At This Time during the past year weight has: remained stable Assistive Devices: Glasses Review of Systems Review of Systems: All systems reviewed & are unremarkable except as noted in Subjective Physical Exam Physical Exam: Sitting upright in bed, and family at bedside, being fed by family member at the time of my visit. Awake but fatigued appearing. Pupils are equal and reactive. There is no bitemporal wasting. Pharynx pink, dentition is intact. Neck is supple. There is no stridor. Respiratory effort normal at rest. No conversational dyspnea. Lungs are clear bilaterally but overall diminished. Heart tones S1-S2. No murmur noted. Mediport on left chest noted. Abdomen is soft, nontender, bowel sounds present. Moving all extremities with mild generalized weakness. Skin is pale, warm and dry. No rashes or lesions noted. Face is symmetric and speech is normal but slow. Moves in a guarded manner. Overall weak and frail appearing. Results & Data Vital Signs (Past 12 Hours) Vital Signs Temp Pulse Pulse Resp BP Pulse Ox O2 Del Method 04/17/24 12:53 73 04/17/24 11:30 36.5 C 67 16 128/86 100 Room Air 04/17/24 08:36 36.7 C 69 16 135/88 99 Room Air 04/17/24 03:59 36.4 C L 82 16 110/74 97 Room Air Laboratory Results 04/16/24 04/16/24 04/16/24 Range/Units 14:35 11:35 10:50 WBC 5.85 (4.8-10.8) K/ul RBC 4.09 L (4.20-5.40) M/uL Hgb 11.9 L (12.0-16.0) g/dl Hct 36.4 L (37.0-47.0) % MCV 89.0 (80.0-100.0) fL MCH 29.1 (25.0-34.0) pg MCHC 32.7 (32.0-36.0) g/dL RDW Std Deviation 45.4 (36.4-46.3) fL RDW Coeff of Abigail 14.0 (11.5-14.5) % Plt Count 284 (130-400) K/uL MPV 8.9 L (9.4-12.4) fL Immature Gran % (Auto) 0.2 % Neut % (Auto) 77.1 % Lymph % (Auto) 17.8 % [place] % (Auto) 4.4 % Eos % (Auto) 0.2 % Baso % (Auto) 0.3 % Neut # (Auto) 4.51 (1.40-6.50) K/uL Lymph # (Auto) 1.04 L (1.20-3.40) K/uL [place] # (Auto) 0.26 (0.11-0.59) K/uL Eos # (Auto) 0.01 (0.00-0.50) K/uL Baso # (Auto) 0.02 (0.00-0.20) K/uL Immature Gran # (Auto) 0.01 (0.01-0.20) K/uL Sodium 139 (136-145) mmol/L Potassium 3.6 (3.5-5.1) mmol/L Chloride 105 (98-107) mmol/L Carbon Dioxide 28 (21-32) mmol/L Anion Gap 6 (3-11) BUN 22 (6-23) mg/dl Creatinine 0.53 L (0.6-1.2) mg/dl Est Cr Clr Drug Dosing 129.2 ml/min eGFR 119.83 BUN/Creatinine Ratio 41.5 H (10-20) Glucose 114 H (70-99(Fasting)) mg/dl Calcium 9.3 (8.6-10.3) mg/dl Total Bilirubin 0.7 (0.2-1.0) mg/dl AST 24 (13-39) U/L ALT 21 (7-52) U/L Alkaline Phosphatase 45 (34-104) U/L Total Protein 7.1 (6.0-8.3) gm/dl Albumin 4.5 (3.4-5.0) gm/dl Globulin 2.6 (2.5-4.0) gm/dl Albumin/Globulin Ratio 1.7 (0.9-2) Urine Color Yellow Urine Appearance Clear (Clear) Urine pH 7.5 (4.5-7.5) Ur Specific [place] 1.025 (1.000-1.030) Urine Protein Negative (Negative) Urine Glucose (UA) Negative (Negative) Urine Ketones Trace H (Negative) Urine Blood Negative (Negative) Urine Nitrite Negative (Negative) Urine Bilirubin Negative (Negative) Urine Urobilinogen Negative (Negative) Ur Leukocyte Esterase Negative (Negative) Adenovirus (PCR) Not Detected (NotDetected) B. pertussis DNA (PCR) Not Detected (NotDetected) B.parapertussis DNA PCR Not Detected (NotDetected) C. pneumoniae DNA (PCR) Not Detected (NotDetected) Coronavirus OC43 (PCR) Not Detected (NotDetected) Coronavirus HKU1 (PCR) Not Detected (NotDetected) Coronavirus 229E (PCR) Not Detected (NotDetected) SARS-CoV-2 (PCR) Not Detected (NotDetected) Coronavirus NL63 (PCR) Not Detected (NotDetected) Human Metapneumovir PCR Not Detected (NotDetected) Influenza Type A (PCR) Not Detected (NotDetected) Influenza Type B (PCR) Not Detected (NotDetected) M. pneumoniae (PCR) Not Detected (NotDetected) Parainfluenza 1 (PCR) Not Detected (NotDetected) Parainfluenza 2 (PCR) Not Detected (NotDetected) Parainfluenza 3 (PCR) Not Detected (NotDetected) Parainfluenza 4 (PCR) Not Detected (NotDetected) RSV (PCR) Not Detected (NotDetected) Entero/Rhino (PCR) Not Detected (NotDetected) Diagnostic Findings OSH data in HPI Chest X-Ray 04/16/24 11:30 XR chest 1V portable CLINICAL HISTORY: viral sx COMPARISON STUDY: 07/23/2022 FINDINGS: Stable left chest port. Heart size and pulmonary vasculature are normal. No effusion or consolidation. IMPRESSION: No pneumonia seen. ACT 112: Negative or not required by law. Electronically signed by: Oswaldo Delgado M.D. 04/16/2024 11:[address] 04/16/24 12:19 CT OF THE HEAD WITHOUT CONTRAST CLINICAL HISTORY: Metastatic disease. Nausea, vomiting and headaches. COMPARISON STUDY: MRI of the brain February 01, 2024. Head CT February 04, 2024. CT DOSE: 625.8 mGy.cm TECHNIQUE: Helical axial images of the head were obtained without IV contrast. Automated exposure control was utilized for the study. A dose lowering technique was utilized adhering to the principles of ALARA. FINDINGS: No acute intracranial hemorrhage is present. Multiple hyperdense intra-axial lesions consistent with metastases are again noted. Associated vasogenic edema is present. Edema is greatest within the left cerebellar hemisphere. Effacement of the fourth ventricle has increased since exam of February 04, 2024. Overall, mass effect within the posterior fossa has increas ed. There may be inferior displacement of the cerebellar tonsils. Interval placement of a right frontal ventriculostomy is noted. The lateral ventricles are slit-like. The tip is within the third ventricle. There are no extra-axial collections. There are no findings to suggest acute dural sinus stenosis or acute territorial infarct. IMPRESSION: 1. Interval placement of a right frontal ventriculostomy with decompression of the lateral and third ventricles. Slit-like ventricles raises the possibility of over shunting. 2. Mild progression of metastatic disease with increase in significant mass effect within the posterior fossa, as described above. Increased effacement of the fourth ventricle with possible mild inferior displacement of the cerebellar tonsils. ACT 112: Negative or not required by law. Electronically signed by: Kurtis Peralta M.D. 04/16/2024 1:49 PM PG Care Time/CCT Total # of Minutes Spent Total Time Spent with Patient: Total time spent is greater than 50% in coordination of care (as documented) at patient's floor/unit and/or counseling patient: I spent 125 minutes overall addressing this case: 30 min in medical data review/discussion with referring provider(s) and/or preparation for the visit including discussion with [facility] Med Onc, [facility], discussion with primary team. 20 min in direct interaction with the patient/exam 45 min in Advance Care Planning/Goals of Care discussions as detailed above in note (must be >16min) 15 min in subsequent review and synthesis of assessment and plan 15 min communicating with other providers regarding the patient's case: Primary team, nursing, oncology Advanced Care Planning [id number] Advanced Care Planning 30 Min 84701 Advanced Care Planning Additional 30 [place] [address] IN/OBS CONSULT LVL 5,80M (25 - SIGNIFICANT, SEPARATELY IDENTIFIABLE ) Patient Type New History Comprehensive Exam Comprehensive Medical Decision Making High Complexity Diagnoses Cancer related pain G89.3 Headache R51.9; G89.29 Headache chronicity pattern: chronic headache Headache type: unspecified Intractability: not intractable Advanced care planning/counseling discussion Z71.89 Palliative care by specialist Z51.5 Metastatic cancer to brain C79.31 Breast cancer, stage 4 C50.919 Metastasis to bone C79.51 Additional Codes Advanced Care Planning - 13487 Advanced Care Planning 30 Min: 30722 Advanced Care Planning 30 Min ([id number]) Advanced Care Planning - 10900 Advanced Care Planning Additional 30 Min: 93036 Advanced Care Planning Additional 30 Min ([id number]) Comment [id number], [id number]
--- NOTE | 2024-04-18 09:08 | Hospitalist Progress Note ---
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 Headache/neck pain is chronic but much worse past 5 days. She did have a DISTRICT SALES MANAGER shunt placed late in January at [facility] to help with the situation, she had a recent clinic visit with neurosurgery and the shunt settings were appropriate. [facility] neurosurgeon was called last night on admission and he recommended treatment with dexamethasone and evaluation by radiation oncologist. According to my review of previous chart notes she had refused whole brain radiation in January at [facility]. I reviewed prior brain MRI 02/05 - bilateral multifocal brain mets, both cerebral and cerebellar with peritumoral edema, L cerebellar met causing mass effect on 4th ventricle and 4-5mm rightward midline shift of posterior fossa. I reviewed previous records - CCP note from 02/29/24. Had gone off treatment fall 2023 because she wanted to get . Presented early 02/05 with headaches found to have brain metastases. Brain XRT was recommended which she declined. Admitted 02/04/24 with worsening symptoms and transferred to [facility] where she reportedly refused XRT and underwent DISTRICT SALES MANAGER shunt to try to palliate. According to her she plans to resume chemo with [facility] next week. radiation oncology and palliative care was consulted by the admitting team. she is followed by [facility] medical oncology last visit 04/11, records are not currently available. PET-CT there a few months ago #cancer-related pain and nausea #extensive brain metastases #c-spine metastases - imaging in 2021 showed mets at C3, 4, 6, pathological compression fracture of C6 with retropulsion of bony fragments. PET-CT 01/06 without hypermetabolic bone lesions. pathologic fx at C6, T8, L4 -difficult to help her symptoms because of refusal of some treatments including oral medications, antiemetics, and notably dexamethasone. discussed at length with her and in room - she is worried about infection risk with steroids, explained that it could immediately help the pain and nausea whereas the xrt will take some time (weeks). she also did discuss with Dr. Coats and Dr. Villeda and refused. 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 Start 04/18, tolerated Monitor for any signs and symptoms of myelopathy related to c-spine mets. her reported that she is to start chemotherapy within the week with her oncologist at [facility], this will need to be delayed until after she finishes her XRT DVT proph - enoxaparin. no evidence of ICH on CTs, risk of VTE is high and benefit outweighs the risk of prophylaxis dose anticoagulation Full code at this time - would not discuss with [facility] care - plans to continue treatment Admission and Anticipated Discharge Date Admission Date: April 16, 2024 Subjective continues with headache, L neck pain both improved with morphine but is lightheaded and sleepy nausea persists has been refusing dexamethasone and antiemetic Physical Exam 2 Physical Exam: Last 24h vitals reviewed GEN: no acute distress, sitting in bed HEENT: pupils equal, sclerae anicteric, moist MM RESP: normal WOB, CTAB CV: reg no mrg ABD: soft/nt/nd +BT : no martinez SKIN: warm and dry, no generalized rashes NEURO: AOx person, place, and situation. Face symmetric, speech normal, moves 4 ext spontaneously and equally. vat operator 5/5 bilaterally and LE strength 5/5 distally Results & Data Results & Data Vital Signs (Past 12 Hours) Vital Signs Temp Pulse Pulse Resp BP BP Pulse Ox 04/18/24 07:34 36.8 C 93 H 18 132/86 97 04/18/24 03:56 36.5 C 74 17 131/83 97 04/17/24 23:00 04/17/24 22:41 36.6 C 68 16 127/85 97 04/17/24 22:00 66 O2 Del Method O2 Del Method 04/18/24 07:34 Nasal Cannula 04/18/24 03:56 Room Air 04/17/24 23:00 Room Air 04/17/24 22:41 Room Air 04/17/24 22:00 Laboratory Results 04/16/24 10:50 04/16/24 10:50 PG Care Time/CCT Total # of Minutes Spent Total Time Spent with Patient: Total time spent is greater than 50% in coordination of care (as documented) at patient's floor/unit and/or counseling patient: Coding Level of Care Code 90797 SUB INP/OBS CARE 235MIN Diagnoses Cancer related pain G89.3 Metastatic cancer to brain C79.31 Intractable nausea and vomiting R11.2 Intractable headache R51.9 Breast cancer, stage 4 C50.919
--- NOTE | 2024-04-18 14:52 | Palliative Care Progress Note ---
Date of Service April 18, 2024 Assessment & Plan (1) Intractable headache: Plan: progressive brain mets starting WBRT today refusing decadron A little drowsy today - multifactorial with WBRT, intractable headache/cancer pain/n/v however will reduce MS SOLDERER DIPPER to 1mg q15min prn bolus only with out any continuous rate (2) Intractable nausea and vomiting: Plan: refusing anti emetic states she prefers to vomit (3) Cancer related pain: (4) Palliative care by specialist: (5) Metastatic cancer to brain: (6) CONSTRUCTION JOB COST ESTIMATOR (ventriculoperitoneal) shunt status: Plan MS SOLDERER DIPPER order changed Thank you for allowing us to participate in the ongoing care of this patient. Please page with any additional concerns. Mariza Shay DNP Director, Palliative Medicine Admission and Anticipated Discharge Date Admission Date: April 16, 2024 Subjective tired awaiting RT has been declining decadron using MS SOLDERER DIPPER sparingly but nursing notes she did use it a bit more overnight nasuea/vomiting unchanged declines IV antiemetic Review of Systems Review of Systems: All systems reviewed & are unremarkable except as noted in Subjective Physical Exam Physical Exam: Sitting upright in bed, and family at bedside, being fed by family member at the time of my visit. Awake but fatigued appearing. Pupils are equal and reactive. There is no bitemporal wasting. Pharynx pink, dentition is intact. Neck is supple. There is no stridor. Respiratory effort normal at rest. No conversational dyspnea. Lungs are clear bilaterally but overall diminished. Heart tones S1-S2. No murmur noted. Mediport on left chest noted. Abdomen is soft, nontender, bowel sounds present. Moving all extremities with mild generalized weakness. Skin is pale, warm and dry. No rashes or lesions noted. Face is symmetric and speech is normal but slow. Moves in a guarded manner. Overall weak and frail appearing. Results & Data Vital Signs (Past 12 Hours) Vital Signs Temp Pulse Pulse Resp BP BP Pulse Ox 04/18/24 08:00 62 04/18/24 07:34 36.8 C 93 H 18 132/86 97 04/18/24 03:56 36.5 C 74 17 131/83 97 O2 Del Method 04/18/24 08:00 04/18/24 07:34 Nasal Cannula 04/18/24 03:56 Room Air Laboratory Results 04/16/24 04/16/24 04/16/24 Range/Units 14:35 11:35 10:50 WBC 5.85 (4.8-10.8) K/ul RBC 4.09 L (4.20-5.40) M/uL Hgb 11.9 L (12.0-16.0) g/dl Hct 36.4 L (37.0-47.0) % MCV 89.0 (80.0-100.0) fL MCH 29.1 (25.0-34.0) pg MCHC 32.7 (32.0-36.0) g/dL RDW Std Deviation 45.4 (36.4-46.3) fL RDW Coeff of Abigail 14.0 (11.5-14.5) % Plt Count 284 (130-400) K/uL MPV 8.9 L (9.4-12.4) fL Immature Gran % (Auto) 0.2 % Neut % (Auto) 77.1 % Lymph % (Auto) 17.8 % [place] % (Auto) 4.4 % Eos % (Auto) 0.2 % Baso % (Auto) 0.3 % Neut # (Auto) 4.51 (1.40-6.50) K/uL Lymph # (Auto) 1.04 L (1.20-3.40) K/uL [place] # (Auto) 0.26 (0.11-0.59) K/uL Eos # (Auto) 0.01 (0.00-0.50) K/uL Baso # (Auto) 0.02 (0.00-0.20) K/uL Immature Gran # (Auto) 0.01 (0.01-0.20) K/uL Sodium 139 (136-145) mmol/L Potassium 3.6 (3.5-5.1) mmol/L Chloride 105 (98-107) mmol/L Carbon Dioxide 28 (21-32) mmol/L Anion Gap 6 (3-11) BUN 22 (6-23) mg/dl Creatinine 0.53 L (0.6-1.2) mg/dl Est Cr Clr Drug Dosing 129.2 ml/min eGFR 119.83 BUN/Creatinine Ratio 41.5 H (10-20) Glucose 114 H (70-99(Fasting)) mg/dl Calcium 9.3 (8.6-10.3) mg/dl Total Bilirubin 0.7 (0.2-1.0) mg/dl AST 24 (13-39) U/L ALT 21 (7-52) U/L Alkaline Phosphatase 45 (34-104) U/L Total Protein 7.1 (6.0-8.3) gm/dl Albumin 4.5 (3.4-5.0) gm/dl Globulin 2.6 (2.5-4.0) gm/dl Albumin/Globulin Ratio 1.7 (0.9-2) Urine Color Yellow Urine Appearance Clear (Clear) Urine pH 7.5 (4.5-7.5) Ur Specific [place] 1.025 (1.000-1.030) Urine Protein Negative (Negative) Urine Glucose (UA) Negative (Negative) Urine Ketones Trace H (Negative) Urine Blood Negative (Negative) Urine Nitrite Negative (Negative) Urine Bilirubin Negative (Negative) Urine Urobilinogen Negative (Negative) Ur Leukocyte Esterase Negative (Negative) Adenovirus (PCR) Not Detected (NotDetected) B. pertussis DNA (PCR) Not Detected (NotDetected) B.parapertussis DNA PCR Not Detected (NotDetected) C. pneumoniae DNA (PCR) Not Detected (NotDetected) Coronavirus OC43 (PCR) Not Detected (NotDetected) Coronavirus HKU1 (PCR) Not Detected (NotDetected) Coronavirus 229E (PCR) Not Detected (NotDetected) SARS-CoV-2 (PCR) Not Detected (NotDetected) Coronavirus NL63 (PCR) Not Detected (NotDetected) Human Metapneumovir PCR Not Detected (NotDetected) Influenza Type A (PCR) Not Detected (NotDetected) Influenza Type B (PCR) Not Detected (NotDetected) M. pneumoniae (PCR) Not Detected (NotDetected) Parainfluenza 1 (PCR) Not Detected (NotDetected) Parainfluenza 2 (PCR) Not Detected (NotDetected) Parainfluenza 3 (PCR) Not Detected (NotDetected) Parainfluenza 4 (PCR) Not Detected (NotDetected) RSV (PCR) Not Detected (NotDetected) Entero/Rhino (PCR) Not Detected (NotDetected) Diagnostic Findings Chest X-Ray 04/16/24 11:30 XR chest 1V portable CLINICAL HISTORY: viral sx COMPARISON STUDY: 07/23/2022 FINDINGS: Stable left chest port. Heart size and pulmonary vasculature are normal. No effusion or consolidation. IMPRESSION: No pneumonia seen. ACT 112: Negative or not required by law. Electronically signed by: Oswaldo Delgado M.D. 04/16/2024 11:[address] 04/16/24 12:19 CT OF THE HEAD WITHOUT CONTRAST CLINICAL HISTORY: Metastatic disease. Nausea, vomiting and headaches. COMPARISON STUDY: MRI of the brain February 01, 2024. Head CT February 04, 2024. CT DOSE: 625.8 mGy.cm TECHNIQUE: Helical axial images of the head were obtained without IV contrast. Automated exposure control was utilized for the study. A dose lowering technique was utilized adhering to the principles of ALARA. FINDINGS: No acute intracranial hemorrhage is present. Multiple hyperdense intra-axial lesions consistent with metastases are again noted. Associated vasogenic edema is present. Edema is greatest within the left cerebellar hemisphere. Effacement of the fourth ventricle has increased since exam of February 04, 2024. Overall, mass effect within the posterior fossa has increased. There may be inferior displacement of the cerebellar tonsils. Interval placement of a right frontal ventriculostomy is noted. The lateral ventricles are slit-like. The tip is within the third ventricle. There are no extra-axial collections. There are no findings to suggest acute dural sinus stenosis or acute territorial infarct. IMPRESSION: 1. Interval placement of a right frontal ventriculostomy with decompression of the lateral and third ventricles. Slit-like ventricles raises the possibility of over shunting. 2. Mild progression of metastatic disease with increase in significant mass effect within the posterior fossa, as described above. Increased effacement of the fourth ventricle with possible mild inferior displacement of the cerebellar tonsils. ACT 112: Negative or not required by law. Electronically signed by: Kurtis Peralta M.D. 04/16/2024 1:49 PM PG Care Time/CCT Total # of Minutes Spent Total Time Spent: 55 Total Time Spent with Patient: Total time spent is greater than 50% in coordination of care (as documented) at patient's floor/unit and/or counseling patient: Coding [place] [address] SUB INP/OBS CARE 3/50MIN Patient Type Established History Comprehensive Exam Comprehensive Medical Decision Making High Complexity Diagnoses Intractable headache R51.9 Intractable nausea and vomiting R11.2 Cancer related pain G89.3 Palliative care by specialist Z51.5 Metastatic cancer to brain C79.31 CONSTRUCTION JOB COST ESTIMATOR (ventriculoperitoneal) shunt status Z98.2
[2024-04-18] MEDS: MECLIZINE HCL 25 MG TAB PO STA (20:40)
--- NOTE | 2024-04-19 11:47 | Hospitalist Progress Note ---
Date of Service April 19, 2024 Assessment & Plan (1) Cancer related pain: (2) Metastatic cancer to brain: (3) Intractable nausea and vomiting: (4) Intractable headache: (5) Breast cancer, stage 4: Plan 38-year-old woman who has triple positive metastatic breast cancer with extensi ve brain mets as well as bone mets including c-spine who was admitted with severe left-sided headache and nausea related to increased intracranial pressure from brain metastases. Headache/neck pain is chronic but much worse past 5 days. She did have a OIL FIELD ROUSTABOUT shunt placed late in January at [facility] to help with the situation, she had a recent clinic visit with neurosurgery and the shunt settings were appropriate. [facility] neurosurgeon was called last night on admission and he recommended treatment with dexamethasone and evaluation by radiation oncologist. According to my review of previous chart notes she had refused whole brain radiation in January at [facility]. Metastatic breast cancer, extensive brain metastasis with bony/C-spine mets MRI 01/2024 - bilateral multifocal brain mets, both cerebral and cerebellar with peritumoral edema, L cerebellar met causing mass effect on 4th ventricle and 4-5mm rightward midline shift of posterior fossa. Previous records reviewed. [facility] had been off treatment for 2023 due to the desire to get , subsequently presented in January 2024 with headaches and brain metastasis. Brain x-ray therapy was recommended but declined by the patient. Admitted 02/04/2024 at that time with cerebral edema and concern for mass effect and risk of herniation. Patient was known to me at that time, extensive discussions were had with patient and a cell phone conference call was made to her oncologist in [place] for further recommendations but as she did not have a surgical team at that time and felt her risk of decompensation was high was recommended for transfer to [facility] for stabilization. Patient was ultimately transferred to [facility] and underwent OIL FIELD ROUSTABOUT shunt. Per patient and they plan to resume chemotherapy at [facility] next week however this will need to be scheduled following completion of her x-ray therapy for which aristeo patel has currently been consulted Continues to decline dexamethasone Records from [facility] medical oncology pending Whole brain x-ray therapy plan for 10 days, start 3/6 Related complications : #Pain/nausea: Continue oral antiemetics. Patient is refusing dexamethasone, risk of this especially with radiation therapy with success with patient. She continues to decline but however this can be started anytime #C-spine metastasis: Metastatic disease at C3, C4, C6, pathologic compression fracture at C6 with retropulsion, hypermetabolic bone lesions on 12/2023 PET/CT, pathologic fracture at C6/T8/L4. Palliative care is consulting. 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 Appreciate consultation and recommendations. Continue to monitor for any signs and symptoms of myelopathy related to c-spine mets. DVT proph - enoxaparin. no evidence of ICH on CTs, risk of VTE is high and benefit outweighs the risk of prophylaxis dose anticoagulation CODE STATUS: Full code. Her station was opened with palliative care regarding CODE STATUS however patient did not wish to/refuse discussed this at the time. Admission and Anticipated Discharge Date Admission Date: April 16, 2024 Subjective Seen the bedside with palliative care present. 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 She does have some dizziness. Feels nausea is okay at time of visit. Did discuss and recommended steroids. Discussed that steroids may help symptomatically with her nausea, and that more importantly her a treatment to help with underlying cerebral edema/swelling which morphine does not help with. Agree with her oncologist's, prior hospitalist, palliative that these are much more likely to help than harm her. Patient expresses that she is concerned regarding their ability to compromise the immune system, discussed that it is much more likely for her to be harmed by her brain swelling/edema which she reports that she will think about and prefer to let providers know if she changes her mind but prefers to continue to defer these. Did also clarify that she had an infection this could potentially be treated with antibiotics, and do not expect that any change in her immune system from the steroids would have a significant impact on the course of her cancer progression. Physical Exam Physical Exam: General: Oriented to name. Appears sedated and somewhat uncomfortable but answers questions appropriately HEENT: Atraumatic, normocephalic. Pupils equal. Vision and hearing grossly intact Pulm: Symmetrical chest rise. No increase in work of breathing. No respiratory distress. Results & Data Results & Data Vital Signs (Past 12 Hours) Vital Signs Temp Pulse Resp BP BP Pulse Ox O2 Del Method 04/19/24 11:00 36.8 C 64 18 116/78 99 Nasal Cannula 03/07/25 07:33 36.6 C 67 18 124/83 96 Nasal Cannula 04/19/24 03:23 36.4 C L 73 16 138/93 99 Room Air PG Care Time/CCT Total # of Minutes Spent Total Time Spent with Patient: Total time spent is greater than 50% in coordination of care (as documented) at patient's floor/unit and/or counseling patient: Coding Level of Care Code 09310 SUB INP/OBS CARE 3/50MIN Diagnoses Cancer related pain G89.3 Metastatic cancer to brain C79.31 Intractable nausea and vomiting R11.2 Intractable headache R51.9 Breast cancer, stage 4 C50.919
[2024-04-19] MEDS: dexAMETHasone 4 MG in SYRINGE 0 ML IV SCH (19:47)
[2024-04-19] MEDS: ACETAMINOPHEN 1,000 MG/100 ML VIAL IV PRN (21:22)
--- NOTE | 2024-04-19 21:31 | Palliative Care Progress Note ---
Date of Service April 19, 2024 Assessment & Plan (1) Intractable headache: Plan: progressive brain mets WBRT underway refusing decadron A little drowsy - + multifactorial with WBRT, intractable headache/cancer pain/n/v Continue MS MERCHANDISE APPRAISER to 1mg q15min prn bolus only with out any continuous rate (2) Intractable nausea and vomiting: Plan: refusing anti emetic states she prefers to vomit (3) Cancer related pain: (4) Palliative care by specialist: (5) Metastatic cancer to brain: (6) CITY SUPERINTENDENT (ventriculoperitoneal) shunt status: Plan MS MERCHANDISE APPRAISER as ordered no other changes WBRT underway Thank you for allowing us to participate in the ongoing care of this patient. Please page with any additional concerns. Mariza Shay DNP Director, Palliative Medicine Admission and Anticipated Discharge Date Admission Date: April 16, 2024 Analisa Giang is seen bedside Female family at bedside She feels pain is managed with MS MERCHANDISE APPRAISER She refuses Decadron, states it will lower her immune system tolerating WBRT appetite ok denies new pain vomiting occasionally, prefers no antiemetics Review of Systems Review of Systems: All systems reviewed & are unremarkable except as noted in Subjective Physical Exam Physical Exam: Sitting upright in bed, and family at bedside, being fed by family member at the time of my visit. Awake but fatigued appearing. Pupils are equal and reactive. There is no bitemporal wasting. Pharynx pink, dentition is intact. Neck is supple. There is no stridor. Respiratory effort normal at rest. No conversational dyspnea. Lungs are clear bilaterally but overall diminished. Heart tones S1-S2. No murmur noted. Mediport on left chest noted. Abdomen is soft, nontender, bowel sounds present. Moving all extremities with mild generalized weakness. Skin is pale, warm and dry. No rashes or lesions noted. Face is symmetric and speech is normal but slow. Moves in a guarded manner. Overall weak and frail appearing. Results & Data Vital Signs (Past 12 Hours) Vital Signs Temp Pulse Pulse Resp BP BP Pulse Ox 04/19/24 19:51 36.6 C 62 17 146/94 H 97 04/19/24 16:28 69 04/19/24 16:27 63 04/19/24 15:52 36.7 C 63 18 124/84 97 04/19/24 11:00 36.8 C 64 18 116/78 99 O2 Del Method 04/19/24 19:51 Room Air 04/19/24 16:28 04/19/24 16:27 04/19/24 15:52 Nasal Cannula 04/19/24 11:00 Nasal Cannula Laboratory Results Most recent lab results Calcium 9.3 mg/dl (8.6-10.3) 04/16/24 10:50 Diagnostic Findings Chest X-Ray 04/16/24 11:30 XR chest 1V portable CLINICAL HISTORY: viral sx COMPARISON STUDY: 07/23/2022 FINDINGS: Stable left chest port. Heart size and pulmonary vasculature are normal. No effusion or consolidation. IMPRESSION: No pneumonia seen. ACT 112: Negative or not required by law. Electronically signed by: Oswaldo Delgado M.D. 04/16/2024 11:[address] 04/16/24 12:19 CT OF THE HEAD WITHOUT CONTRAST CLINICAL HISTORY: Metastatic disease. Nausea, vomiting and headaches. COMPARISON STUDY: MRI of the brain February 01, 2024. Head CT February 04, 2024. CT DOSE: 625.8 mGy.cm TECHNIQUE: Helical axial images of the head were obtained without IV contrast. Automated exposure control was utilized for the study. A dose lowering technique was utilized adhering to the principles of ALARA. FINDINGS: No acute intracranial hemorrhage is present. Multiple hyperdense intra-axial lesions consistent with metastases are again noted. Associated vasogenic edema is present. Edema is greatest within the left cerebellar hemisphere. Effacement of the fourth ventricle has increased since exam of February 04, 2024. Overall, mass effect within the posterior fossa has increased. There may be inferior displacement of the cerebellar tonsils. Interval placement of a right frontal ventriculostomy is noted. The lateral ventricles are slit-like. The tip is within the third ventricle. There are no extra-axial collections. There are no findings to suggest acute dural sinus stenosis or acute territorial infarct. IMPRESSION: 1. Interval placement of a right frontal ventriculostomy with decompression of the lateral and third ventricles. Slit-like ventricles raises the possibility of over shunting. 2. Mild progression of metastatic disease with increase in significant mass effect within the posterior fossa, as described above. Increased effacement of the fourth ventricle with possible mild inferior displacement of the cerebellar tonsils. ACT 112: Negative or not required by law. Electronically signed by: Kurtis Peralta M.D. 04/16/2024 1:49 PM PG Care Time/CCT Total # of Minutes Spent Total Time Spent: 35 Total Time Spent with Patient: Total time spent is greater than 50% in coordination of care (as documented) at patient's floor/unit and/or counseling patient: [place] [address] SUB INP/OBS CARE 2/35MIN Patient Type Established History Comprehensive Exam Comprehensive Medical Decision Making High Complexity Diagnoses Intractable headache R51.9 Intractable nausea and vomiting R11.2 Cancer related pain G89.3 Palliative care by specialist Z51.5 Metastatic cancer to brain C79.31 CITY SUPERINTENDENT (ventriculoperitoneal) shunt status Z98.2
[2024-04-20] MEDS: POLYETHYLENE (MIRALAX) 17 GM PACK PO PRN (10:28)
--- NOTE | 2024-04-20 14:40 | Hospitalist Progress Note ---
Date of Service April 20, 2024 Assessment & Plan (1) Cancer related pain: (2) Metastatic cancer to brain: (3) Intractable nausea and vomiting: (4) Intractable headache: (5) Breast cancer, stage 4: Plan 38-year-old woman who has triple positive metastatic breast cancer with extensi ve brain mets as well as bone mets including c-spine who was admitted with severe left-sided headache and nausea related to increased intracranial pressure from brain metastases. Headache/neck pain is chronic but much worse past 5 days. She did have a BACON DE RINDER shunt placed late in January at [facility] to help with the situation, she had a recent clinic visit with neurosurgery and the shunt settings were appropriate. [facility] neurosurgeon was called on admission and he recommended treatment with dexamethasone and evaluation by radiation oncologist. According to my review of previous chart notes she had refused whole brain radiation in January at [facility]. Metastatic breast cancer, extensive brain metastasis with bony/C-spine mets MRI 01/2024 - bilateral multifocal brain mets, both cerebral and cerebellar with peritumoral edema, L cerebellar met causing mass effect on 4th ventricle and 4-5mm rightward midline shift of posterior fossa. Previous records reviewed. [facility] had been off treatment for 2023 due to the desire to get , subsequently presented in January 2024 with headaches and brain metastasis. Brain x-ray therapy was re commended but declined by the patient. Admitted 02/04/2024 at that time with cerebral edema and concern for mass effect and risk of herniation. Patient was known to me at that time, extensive discussions were had with patient and a cell phone conference call was made to her oncologist in [place] for further recommendations but as she did not have a surgical team at that time and felt her risk of decompensation was high was recommended for transfer to [facility] for stabilization. Patient was ultimately transferred to [facility] and underwent BACON DE RINDER shunt. Per patient and they plan to resume chemotherapy at [facility] next week however this will need to be scheduled following completion of her x-ray therapy for which rad onc has currently been consulted Started agreeing to take dexamethasone again with improvement in level of alertness and resolution of nausea Records from [facility] medical oncology pending Whole brain x-ray therapy plan for 10 days, start 3/6 Related complications : #Pain/nausea: Continue oral antiemetics. Improved with resumption of dex #C-spine metastasis: Metastatic disease at C3, C4, C6, pathologic compression fracture at C6 with retropulsion, hypermetabolic bone lesions on 12/2023 PET/CT, pathologic fracture at C6/T8/L4. Palliative care is consulting. 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 Appreciate consultation and recommendations. Continue to monitor for any signs and symptoms of myelopathy related to c-spine mets. oral intake has been fairly low - ordered CBC and BMP for AM DVT proph - enoxaparin. no evidence of ICH on CTs, risk of VTE is high and benefit outweighs the risk of prophylaxis dose anticoagulation CODE STATUS: Full code. Conversation was opened with palliative care regarding CODE STATUS however patient did not wish to/refuse discussed this at the time. Admission and Anticipated Discharge Date Admission Date: April 16, 2024 Analisa Giang took dexamethasone last night and this morning, nursing staff reports clear improvement in symptoms she is more alert, currently denies nausea, headache/neck pain still present Physical Exam Physical Exam: Last 24h vitals reviewed GEN: sitting in bed awake, in room exam unchanged 04/20 except appears comfortable and more alert HEENT: pupils equal, sclerae anicteric, moist MM RESP: normal WOB, CTAB CV: reg no mrg ABD: soft/nt/nd +BT : no martinez SKIN: warm and dry, no generalized rashes NEURO: AOx 4. Flat affect and low speech output persists. Face symmetric, speech normal, moves 4 ext spontaneously and equally. Results & Data Results & Data Vital Signs (Past 12 Hours) Vital Signs Temp Pulse Pulse Resp BP BP Pulse Ox 04/20/24 13:21 54 L 04/20/24 10:53 36.4 C L 70 18 135/88 97 04/20/24 07:12 36.6 C 60 18 132/88 98 04/20/24 03:10 36.5 C 73 17 124/83 96 O2 Del Method 04/20/24 13:21 04/20/24 10:53 Room Air 04/20/24 07:12 Room Air 04/20/24 03:10 Room Air PG Care Time/CCT Total # of Minutes Spent Total Time Spent with Patient: Total time spent is greater than 50% in coordination of care (as documented) at patient's floor/unit and/or counseling patient: Coding Level of Care Code 20249 SUB INP/OBS CARE MIN Diagnoses Cancer related pain G89.3 Metastatic cancer to brain C79.31 Intractable nausea and vomiting R11.2 Intractable headache R51.9 Breast cancer, stage 4 C50.919
[2024-04-20] MEDS: NYSTATIN SUSP 500,000 U/5 ML UDC PO SCH (20:50)
--- NOTE | 2024-04-21 17:18 | Hospitalist Progress Note ---
Date of Service April 21, 2024 Assessment & Plan (1) Cancer related pain: (2) Metastatic cancer to brain: (3) Intractable nausea and vomiting: (4) Intractable headache: (5) Breast cancer, stage 4: Plan 38-year-old woman who has triple positive metastatic breast cancer with extensi ve brain mets as well as longstanding bone mets including c-spine who was admitted with severe left-sided headache and nausea related to increased intracranial pressure from brain metastases. Headache/neck pain is chronic but much worse past 5 days. She did have a PLANT HEALTH MANAGER shunt placed late in January at [facility] to help with the situation, she had a recent clinic visit with neurosurgery and the shunt settings were appropriate. [facility] neurosurgeon was called on admission and he recommended treatment with dexamethasone and evaluation by radiation oncologist. According to my review of previous chart notes she had refused whole brain radiation in January at [facility] and [facility]. Metastatic breast cancer, extensive brain metastasis with bony/C-spine mets - see progress note 04/20 for some additional details of her overall clinical course MRI 01/2024 - bilateral multifocal brain mets, both cerebral and cerebellar with peritumoral edema, L cerebellar met causing mass effect on 4th ventricle and 4-5mm rightward midline shift of posterior fossa. Per patient and they plan to resume chemotherapy at [facility] Started agreeing to take dexamethasone again with improvement in level of alertness and resolution of nausea, headache persists still using MASTER SCHEDULER morphine. dexamethasone dose is currently low at 4 mg every 12 hours Records from [facility] medical oncology pending Whole brain x-ray therapy plan for 10 days, start 3/6 Related complications : # nausea: Continue oral antiemetics. Improved with resumption of dex # headache: Continue MASTER SCHEDULER morphine #C-spine metastasis: Metastatic disease at C3, C4, C6, pathologic compression fracture at C6 with retropulsion, hypermetabolic bone lesions on 12/2023 PET/CT, pathologic fracture at C6/T8/L4. Palliative care is consulting. Continue to monitor for any signs and symptoms of myelopathy related to c-spine mets. follow labs periodicallyordered a.m. CBC with differential, BMP and magnesium DVT proph - enoxaparin. no evidence of ICH on CTs, risk of VTE is high and benefit outweighs the risk of prophylaxis dose anticoagulation CODE STATUS: Full code. Conversation was opened with palliative care regarding CODE STATUS however patient did not wish to/refuse discussed this at the time. Admission and Anticipated Discharge Date Admission Date: April 16, 2024 Subjective per recent reports she is feeling better today nausea is controlled with reinitiation of dexamethasone and she has been able to eat some, she has been able to walk to the bathroom, encouraged her to get up in the chair although upright positioning aggravates her headache, her headache is unchanged and improved with morphine, she is more alert compared to 2-3 days ago. she is getting twice daily boost from nutrition services. remains constipated no bowel movement yet Physical Exam Physical Exam: Last 24h vitals reviewed GEN: sitting up in bed awake room is dark, her is in the room per usual habit HEENT: pupils equal, sclerae anicteric, moist MM RESP: nonlabored CV: deferred ABD: nondistended : no martinez SKIN: warm and dry, no generalized rashes, extremitiesno edema, sarcopenia NEURO: AOx 4. Flat affect and low speech output persists. Face symmetric, speech normal, moves 4 ext spontaneously and equally. unchanged 04/21 Results & Data Results & Data Vital Signs (Past 12 Hours) Vital Signs Temp Pulse Pulse Resp BP Pulse Ox O2 Del Method 04/21/24 15:37 36.5 C 65 18 135/88 98 Room Air 04/21/24 15:06 61 04/21/24 14:44 53 L 04/21/24 11:25 36.7 C 80 18 114/76 98 Room Air 04/21/24 07:11 36.6 C 55 L 18 131/87 97 Room Air PG Care Time/CCT Total # of Minutes Spent Total Time Spent with Patient: Total time spent is greater than 50% in coordination of care (as documented) at patient's floor/unit and/or counseling patient: Coding Level of Care Code 14528 SUB INP/OBS CARE 03/09MIN Diagnoses Cancer related pain G89.3 Metastatic cancer to brain C79.31 Intractable nausea and vomiting R11.2 Intractable headache R51.9 Breast cancer, stage 4 C50.919
[2024-04-22 07:02] LABS: Basophils # (auto) 0.01 K/uL (0.00-0.20); Basophils % (auto) 0.2 %; Eosinophils # (auto) 0.02 K/uL (0.00-0.50); Eosinophils % (auto) 0.3 %; Hematocrit (blood only) 38.1 % (37.0-47.0); Hemoglobin 12.9 g/dl (12.0-16.0); Immature Granulocytes # (auto) 0.06 K/uL (0.01-0.20); Immature Granulocytes % (auto) 0.9 %; Lymphocytes # (auto) 1.58 K/uL (1.20-3.40); Lymphocytes % (auto) 24.6 %; Mean Corpuscular Hemoglobin 28.9 pg (25.0-34.0); Mean Corpuscular Hgb Conc 33.9 g/dL (32.0-36.0); Mean Corpuscular Volume 85.4 fL (80.0-100.0); Mean Platelet Volume 8.9 fL (9.4-12.4); Monocytes # (auto) 0.55 K/uL (0.11-0.59); Monocytes % (auto) 8.6 %; Neutrophils % (auto) 65.4 %; Platelet Count 319 K/uL (130-400); RDW Coefficient of Variation 13.7 % (11.5-14.5); Red Blood Count 4.46 M/uL (4.20-5.40); White Blood Count 6.42 K/ul (4.8-10.8)
[2024-04-22 07:21] LABS: BUN Creatinine Ratio 36.2 (10-20); Calcium 9.1 mg/dl (8.6-10.3); Creatinine Clr Calc Pharmacy 143.2 ml/min; Magnesium 1.9 mg/dl (1.7-2.4); Potassium 4.1 mmol/L (3.5-5.1)
[2024-04-22] MEDS: SENNA 8.6 MG TAB PO PRN (15:11)
[2024-04-22] MEDS ORDERED: SODIUM CHLORIDE 0.65% NA SOLN 45 ML (OCEAN) PRN (15:38)
[2024-04-22] MEDS: OXYMETAZOLINE 0.05% 30 ML BTL STA (16:19)
--- NOTE | 2024-04-22 17:44 | Hospitalist Progress Note ---
Date of Service April 22, 2024 Assessment & Plan (1) Cancer related pain: (2) Metastatic cancer to brain: (3) Intractable nausea and vomiting: (4) Intractable headache: (5) Breast cancer, stage 4: Plan 38-year-old woman who has triple positive metastatic breast cancer with extensive brain mets as well as longstanding bone mets including c-spine who was admitted with severe left-sided headache and nausea related to increased intracranial pressure from brain metastases. 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 She did have a MACHINE HEDDLE CLEANER shunt placed late in January at [facility] to help with the situation, she had a recent clinic visit with neurosurgery and the shunt settings were appropriate. [facility] neurosurgeon was called on admission and he recommended treatment with dexamethasone and evaluation by radiation oncologist. According to my review of previous chart notes she had refused whole brain radiation in January at [facility] and [facility]. Metastatic breast cancer, extensive brain metastasis with bony/C-spine mets - see progress note 04/20 for some additional details of her overall clinical course MRI 01/2024 - bilateral multifocal brain mets, both cerebral and cerebellar with peritumoral edema, L cerebellar met causing mass effect on 4th ventricle and 4-5mm rightward midline shift of posterior fossa. Per patient and they plan to resume chemotherapy at [facility] Started agreeing to take dexamethasone again over weekend with improvement in level of alertness and resolution of nausea, headache persists still using CONCRETE LAYER morphine. dexamethasone dose is currently low at 4 mg q12 [place] [facility] [place] reviewed Whole brain x-ray therapy plan for 10 days, started 04/18. today is 3rd treatment -currently still in hospital because of cancer pain. Hope that symptoms improve enough with steroids so that she can transition to oral medications soon, palliative care saw her today note pending Related complications : # nausea: Continue oral antiemetics. 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 Palliative care is consulting. Continue to monitor for any signs and symptoms of myelopathy related to c-spine mets. # constipation - has daily miralax, senna prn, add dulcolax tab and suppository prn follow labs periodically 04/22 reviewed CBC, BMP, mag and they are essentially normal DVT proph - enoxaparin. no evidence of ICH on CTs, risk of VTE is high and benefit outweighs the risk of prophylaxis dose anticoagulation CODE STATUS: Full code. Conversation was opened with palliative care regarding CODE STATUS however patient did not wish to/refuse discussed this at the time. may transfer to medical unit Admission and Anticipated Discharge Date Admission Date: April 16, 2024 Subjective Padmaja definitely feels better than several days ago. Denies nausea. Remains globally weak. Still with severe L headache, L neck pain on CONCRETE LAYER morphine which helps Has been constipated despite adding miralax x 2 days Physical Exam 2 Physical Exam: Last 24h vitals reviewed GEN: awake in bed, sister and are in room Exam unchanged except affect is a little brighter today HEENT: pupils equal, sclerae anicteric, moist MM RESP: nonlabored CV: deferred ABD: nondistended : no martinez SKIN: warm and dry, no generalized rashes, extremitiesno edema, sarcopenia NEURO: AOx 4. Flat affect and low speech output persists. Face symmetric, speech normal, moves 4 ext spontaneously and equally. Results & Data Results & Data Vital Signs (Past 12 Hours) Vital Signs Temp Pulse Pulse Resp BP Pulse Ox O2 Del Method 04/22/24 09:16 Room Air 04/22/24 07:55 36.5 C 53 L 17 137/92 99 Room Air 04/22/24 07:00 52 L Laboratory Results 04/22/24 06:34 04/22/24 06:34 PG Care Time/CCT Total # of Minutes Spent Total Time Spent with Patient: Total time spent is greater than 50% in coordination of care (as documented) at patient's floor/unit and/or counseling patient: Coding Level of Care Code 86451 SUB INP/OBS CARE 2/35MIN Diagnoses Cancer related pain G89.3 Metastatic cancer to brain C79.31 Intractable nausea and vomiting R11.2 Intractable headache R51.9 Breast cancer, stage 4 C50.919
[2024-04-22] MEDS: ACETAMINOPHEN 1,000 MG/100 ML VIAL IV STA (21:48)
[2024-04-23] MEDS: ACETAMINOPHEN 1,000 MG/100 ML VIAL IV PRN (11:06)
--- NOTE | 2024-04-23 14:51 | Palliative Family Discussion ---
Date of Service April 23, 2024 Patient Directed Conference Time of Meetin-12pm Participants: Macy Shay DNP Patient participation: no Patient Support System:sister Other Healthcare Provider Participation: None Meeting Location: pt room, pt was off unit The patient's surrogate medical decision maker participated: sister and This ACP meeting was held for PADMAJA FLOWER. This meeting was necessary for determining the appropriate course of treatment. Topics of Discussion Summary of Discussion: I spoke with Padmaja Flower's sister, who expressed significant concern regarding her sister's prognosis, potential mortality, and the lack of meaningful family support, especially from her family in [place]. She was tearful and deeply worried about time running out. The sister disclosed that Padmaja has not informed her f amily in [place] about her cancer diagnosis. She fears that if Padmaja's condition worsens, her parents may not be able to secure a visa in time to be with her. The sister asked several questions regarding Padmaja's prognosis, specifically if current whole-brain radiation therapy (WBRT) would "add years to her life." She also expressed concern about the influence of a credit advisor, to whom Padmaja has entrusted her care decisions. The advisor has previously advised against certain treatments, including radiation and Decadron, and Padmaja places significant trust in this individual, believing they are the reason she is still alive. This has created some tension, as the advisors guidance may conflict with the medical teams recommendations. In response, I assured the sister that I would consult Dr. Joe at [facility] to obtain further clarity on Willis prognosis and treatment options. I emphasized the importance of initiating advanced care planning (ACP) and goals of care (GOC) discussions once we have more information. Next Steps: * I have left a message for Dr. Joe at [facility] to obtain further details on Willis prognosis and treatment options ([phone]). * Prepare to engage in ACP/GOC discussions once additional clarity is obtained. * Continue to provide emotional and compassionate support to Padmaja and her family, addressing concerns related to family presence and decision-making. Conclusion: Willis simeon is understandably anxious, emotional, and concerned about the potential lack of family presence, particularly given the complexity of Willis situation and her parents inability to travel from [place] without a visa. She has kept Parisas diagnosis secret from her parents for years and is reluctant to disclose it now, but she asked whether a medical letter could be provided to expedite a visa. I explained that such a letter would require Parisas consent, as it involves sharing personal medical information, and I would be unable to do so without her approval. I encouraged the sister to consider having her parents apply for visas as soon as possible, given the current political climate and the possibility of changing policies. I reassured the sister that we are committed to providing compassionate care and addressing both Paris health concerns and the logistical challenges related to family involvement. I am awaiting a return call from Dr. Joe. Other Content of Meetin. Opportunity given for participants to speak and ask questions. 2. Participants were assured of attention to patient comfort. 3. Reassurance provided. 4. Support was provided for informed, good-abdelrahman decisions. 5. Emotions expressed by family were acknowledged and addressed. 6. Follow-up: sister would like to speak with Padmaja's and further follow up with me after an update from med onc is obtained. Primary team updated. Thank you for allowing us to participate in the ongoing care of this patient. Please page with any additional concerns. Mariza Shay DNP Director, Palliative Medicine
--- NOTE | 2024-04-23 14:59 | Hospitalist Progress Note ---
Date of Service April 23, 2024 Assessment & Plan (1) Cancer related pain: (2) Metastatic cancer to brain: (3) Intractable nausea and vomiting: (4) Intractable headache: (5) Breast cancer, stage 4: Plan 38-year-old woman who has triple positive metastatic breast cancer with extens jeremías brain mets as well as longstanding bone mets including c-spine who was admitted with severe left-sided headache and nausea related to increased intracranial pressure from brain metastases. 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 [facility] neurosurgeon was called on admission and he recommended treatment with dexamethasone and evaluation by radiation oncologist. According to my review of previous chart notes she had refused whole brain radiation in January at [facility] and [facility]. Metastatic breast cancer, extensive brain metastasis with bony/C-spine mets - see progress note 04/20 for some additional details of her overall clinical course MRI 01/2024 - bilateral multifocal brain mets, both cerebral and cerebellar with peritumoral edema, L cerebellar met causing mass effect on 4th ventricle and 4-5mm rightward midline shift of posterior fossa. 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 dexamethasone dose is currently low at 4 mg q12 Records from [facility] medical oncology reviewed Whole brain x-ray therapy plan for 10 days, started 04/18. -currently still in hospital because of cancer pain. Hope that symptoms improve enough with steroids so that she can transition to oral medications soon, palliative care saw her today note pending Added Tylenol IV for pain Related complications : # nausea: Continue oral antiemetics. Improved with resumption of dex # headache: Continue INSTRUMENT ROOM TECHNICIAN morphine #C-spine metastasis: Metastatic disease at C3, C4, C6, pathologic compression fracture at C6 with retropulsion, hypermetabolic bone lesions on 12/2023 PET/CT, pathologic fracture at C6/T8/L4. Palliative care is consulting. Continue to monitor for any signs and symptoms of myelopathy related to c-spine mets. # constipation - has daily miralax, senna prn, add dulcolax tab and suppository prn follow labs periodically 04/22 reviewed CBC, BMP, mag and they are essentially normal DVT proph - enoxaparin. no evidence of ICH on CTs, risk of VTE is high and benefit outweighs the risk of prophylaxis dose anticoagulation CODE STATUS: Full code. Conversation was opened with palliative care regarding CODE STATUS however patient did not wish to/refuse discussed this at the time. Admission and Anticipated Discharge Date Admission Date: April 16, 2024 Subjective Patient was seen and examined at 10:45 AM. She was accompanied by her sister and at the bedside. She says that she slept well through the night and the IV Tylenol helped. She requested further doses of IV Tylenol. Review of Systems Review of Systems: All systems reviewed & are unremarkable except as noted in Subjective Physical Exam Physical Exam: General: Awake, conversant.. Frail appearing woman Heart: S1, S2/regular rate and rhythm, no murmur rubs or gallops Lungs: Clear to auscultation bilaterally. Normal effort Abdomen: Soft/nontender/nondistended. No hepatosplenomegaly Extremities: No clubbing/cyanosis. No edema Behavior: Appropriate, cooperative Results & Data Results & Data Vital Signs (Past 12 Hours) Vital Signs Temp Pulse Resp BP Pulse Ox O2 Del Method 04/23/24 07:55 36.8 C 60 18 118/82 97 Room Air PG Care Time/CCT Total # of Minutes Spent Total Time Spent with Patient: Total time spent is greater than 50% in coordination of care (as documented) at patient's floor/unit and/or counseling patient: Coding Level of Care Code 81018 SUB INP/OBS CARE 2/35MIN Diagnoses Cancer related pain G89.3 Metastatic cancer to brain C79.31 Intractable nausea and vomiting R11.2 Intractable headache R51.9 Breast cancer, stage 4 C50.919
[2024-04-23] MEDS: bisacodyL 10 MG SUPP PR PRN (22:06)
[2024-04-23] MEDS ORDERED: SOD PHOSPHATE/SOD BIPHOSPHATE ENEMA 132 ML BTL PR PRN (22:45)
--- NOTE | 2024-04-24 08:33 | Hospitalist Progress Note ---
Date of Service April 24, 2024 Assessment & Plan (1) Cancer related pain: (2) Metastatic cancer to brain: (3) Intractable nausea and vomiting: (4) Intractable headache: (5) Breast cancer, stage 4: Plan 38-year-old woman who has triple positive metastatic breast cancer with extens jeremías brain mets as well as longstanding bone mets including c-spine who was admitted with severe left-sided headache and nausea related to increased intracranial pressure from brain metastases. 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 [facility] neurosurgeon was called on admission and he recommended treatment with dexamethasone and evaluation by radiation oncologist. On prior chart review patient had declined whole brain radiation in January at [facility] and [facility]. Subsequently has progressed to x-ray therapy brain radiation, and has started steroids which have been titrated to every 8 hour dosing. Follow-up with palliative care and plan is to complete radiation therapy and then follow- up with [facility] oncology for potential chemotherapy options. Metastatic breast cancer, extensive brain metastasis with bony/C-spine mets - see progress note 04/20 for some additional details of her overall clinical course T1 cpN1a, HER2 positive ER positive stage IV breast cancer metastatic to brain MRI 01/2024 - bilateral multifocal brain mets, both cerebral and cerebellar with peritumoral edema, L cerebellar met causing mass effect on 4th ventricle and 4-5mm rightward midline shift of posterior fossa. Per patient and they plan to resume chemotherapy at [facility] Started agreeing to take dexamethasone again over weekend although had a dose reduction with subsequent improvement in level of alertness and resolution of nausea, headache persists still using GOLF CLUB FACER morphine. dexamethasone dose is currently low at 4 mg q12 Discussed risk/benefits again of dexamethasone, patient agreeable to switch to dexamethasone every 8 rather than every 12 which has been updated with next dose at 2 PM. Anticipate continuing steroids through radiation followed by taper Records from [facility] medical oncology reviewed Whole brain x-ray therapy plan for 10 days, started 04/18. Treatments will continue through with 04/27, if patient symptoms are adequately controlled on o ral medications, home care resources are able to be coordinated, and follow-up is arranged could potentially progress to complete these as outpatient Tylenol IV continued for pain, patient reports that she feels she had significant benefit from this compared to oral formulations and will continue Only 1 dose of GOLF CLUB FACER analgesia overnight, will trial transition to morphine p.o. with IV push available for breakthrough/inadequately controlled pain, Patient could potentially progress to outpatient radiation therapy if her symptoms are adequately controlled. Due to her complicated course, patient preference to pursue low-dose steroid, and high risk complications and patient management is reasonable at this time. Will also need significant assistance with home resources/home health, case management following. Following discharge anticipate transition to [facility] palliative and oncology care. Patient is interested in following locally with [facility] oncology to help consolidate her care. Did offer to write a letter of medical necessity to help expedite visa process for her parents who live in [place]. Patient reports that her parents are not aware of her current diagnosis and condition and do not wish to make them worry. Did discuss concerns for delays and difficulty with visas and immigration, and expressed concern that her parents could be unable to see her in a critical time due to delays related to this. Padmaja has been present understanding of this, appreciative of offer to write a letter of medical necessity and while they do not wish for this to be done at this time will reach out if/when they feel ready for this. Related complications : # nausea: Continue oral antiemetics. Improved with resumption of dex # headache: Transitioning to oral morphine as able, continue Tylenol. 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 Palliative care is consulting. Continue to monitor for any signs and symptoms of myelopathy related to c-spine mets. # constipation -daily MiraLAX switched to scheduled, Dulcolax available as needed, suppository as needed DVT proph - enoxaparin. no evidence of ICH on CTs, risk of VTE is high and benefit outweighs the risk of prophylaxis dose anticoagulation CODE STATUS: Full code. Conversation was opened with palliative care regarding CODE STATUS however patient did not wish to/refuse discussed this at the time. Admission and Anticipated Discharge Date Admission Date: April 16, 2024 Analisa Giang seen in the morning with her , sister, and Dr. Shay palliative care present. Headaches and nausea have improved, patient is hopeful this is from her radiation therapy treatments. Discussion between [facility] oncology and palliative care, see their documentation for completion. Patient's goal is to progress to outpatient chemotherapy following completion of radiation. She received 1 dose of GOLF CLUB FACER analgesia overnight, will transition to oral with IV breakthrough to see if she could potentially progress to orals only and ultimately outpatient treatments. She is quite weak and requires additional assistance at home, will review with case management for potential home services based on needs and palliative also assisting. Otherwise patient's acute concerns are some constipation requiring disimpaction yesterday. MiraLAX has been switched to scheduled and Dulcolax is available additionally is as needed. Physical Exam Physical Exam: General: And oriented to name. Answers questions appropriately. Appears fatigued but nontoxic HEENT: Atraumatic, normocephalic. Pupils equal. Vision and hearing grossly intact Pulm: Symmetrical chest rise. No increase in work of breathing. No respiratory distress. Results & Data Results & Data Vital Signs (Past 12 Hours) Vital Signs Temp Pulse Pulse Resp BP BP Pulse Ox 04/24/24 07:52 36.4 C L 57 L 18 110/72 96 04/23/24 23:00 04/23/24 21:00 36.6 C 64 18 126/80 97 Pulse Ox O2 Del Method O2 Del Method 04/24/24 07:52 Room Air 04/23/24 23:00 97 Room Air 04/23/24 21:00 Room Air PG Care Time/CCT Total # of Minutes Spent Total Time Spent with Patient: Total time spent is greater than 50% in coordination of care (as documented) at patient's floor/unit and/or counseling patient: Coding Level of Care Code 83917 SUB INP/OBS CARE 3/50MIN Diagnoses Cancer related pain G89.3 Metastatic cancer to brain C79.31 Intractable nausea and vomiting R11.2 Intractable headache R51.9 Breast cancer, stage 4 C50.919
--- NOTE | 2024-04-24 09:06 | Communication Note ---
Date of Service: April 24, 2024 575am - 809ym Palliative Medicine on-call note Telephone call with Dr. Joe from [facility] oncology 6:15 AM to 6:55 AM. Patient's case was discussed. He shares that he met her approximately 4 months ago and has experienced similar difficulties obtaining all of her records due to the multiple providers she has sought care from including [facility], [facility], [facility], [facility]. He shares that in his discussions with patient and , he noted that they are very deep and contemplative thinkers. Padmaja is a "student of deep consciousness" - this explores the nature of awareness, self, and reality, often through interdisciplinary methods like meditation, introspection, and philosophy, aiming to cultivate a deeper understanding and experience of consciousness. It is believed that the person with the deepest consciousness (the most compassionate understanding) has a special responsibility to help things go well Dr. Joe shared with her at the last clinic appointment that brain mets will likely be her cause of but she remained convinced that the brain issue was not actually cancer related and continue to argue that there could be another cause for the brain problems. We discussed her overall prognosis and he shared the following. Without treatment i.e. radiation only and no more systemic chemo, anticipated survival would be approximately 6 months. With treatment, anticipated survival could be a year although this is felt to be likely less given the issues she has had with tolerance and compliance. She refuses various aspects and elements of a treatment plan, will start meds then stop them for a variety fo reasons usually after a few days and overall has been difficult to get her to adhere to treatment consistently. Overall her tolerance will determine the treatment as well as the response to systemic treatment. It has been noted by multiple previous providers as well as her primary oncologist that she tends to defer discussion by saying she wants to speak to either her oncologist or someone else, including "doctors in [place]." I shared the details of my family meeting with Padmaja's sister yesterday: Padmaja has not disclosed her cancer diagnosis to anyone back home including her parents and this has become a point of stress for the sister as she sees the patient worsening and she worries that family will not have time to obtain their visas and come to the [place] to be with her when her time is running short. Dr. Joe and I discussed the importance of initiating some further goals of care conversations with patient and her . He emphasized his prior discussions with them in clinic where he had been honest with them that time is running short and that hospice would be a more than appropriate transition however patient remains fixated that her issues in the brain are not cancer related. I will continue to work towards more goals of care conversation and will continue to keep Dr. Joe updated. He advised that he would schedule an appointment for her in follow-up after she completes radiation but that for now no chemo would be done until radiation is completed. At that time, he will see her in clinic, evaluate her status and determine if it is an appropriate time to start systemic therapy. His office fax is [phone]. TS 50min, telephonic Thank you for allowing us to participate in the ongoing care of this patient. Please page with any additional concerns. Mariza Shay DNP Director, Palliative Medicine
[2024-04-24] MEDS ORDERED: MoRPHine SULFATE 10 MG/0.5 ML UDP PO PRN (12:16)
--- NOTE | 2024-04-24 12:25 | Palliative Care Progress Note ---
Date of Service April 24, 2024 Assessment & Plan (1) Intractable headache: Plan: progressive brain mets WBRT underway Started Decadron, we had a lengthy discussion about moving Decadron dose to [id number] reasoning that she is already seeing some improvement. 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 MS IV 1mg q3h prn back up for severe pain unrelieved by oral meds (3) Intractable nausea and vomiting: Plan: better with decadron (4) Advanced care planning/counseling discussion: Plan: A face to face ACP meeting was held bedside for 60 min I met with pt, and her sister at bedside Discussed events to date Advised I spoke with Dr Joe who suggested she increase decadron and complete RT then chemo follow up states he does not feel she should come home until she can walk on her own, toilet herself and does not have n/v or constipation of overnight - says he does not know how to manage these things We reviewed the how medical dc decisions are reached and how acute needs move to chronic so care needs to be done at a chronic level facility such as SNF or home with VNS. I advised her I would not suggest SNF for her I suggested Home health but they had a bad experience 3 years ago. Her sister is not able to assist with her care at home, patient states her sister has a life. And states there are times he has to go to work for meetings etc and she cannot be alone etc. He notes riding in car triggers dizziness and nausea. Gently reviewed those are not reasons to remain in hospita l vs moving to SNF or home with caregiver support. Her sister it is noted has been with her nearly ATC during admissions. They have not disclosed her cancer to her family in [place]. states they do not want to worry their parents, noting that parents being upset will only add to Patient's worry. Family is in [place]. There is no embassy there, and would require a trip to [place] to visit nearest [facility]. I encouraged them to consider beginning their visa processes now to try and be ready for when a more urgent visit might be needed, and Dr Michael and I offered to provide medical letter of support to help expedite visa request if needed. Padmaja and were appreciative of this offer but politely declined for now. I encouraged them to discuss as a family as dc was not imminent today. Gently discussed that some of her symptoms may persist though hopefully at lower intensity. She spoke at length about the struggle of going to [facility] with current symptom burden. I shared with she could come back to Dr Han/[facility] for chemo or transfer to [facility] which is 15min from home. After discussion they were open to [facility] with Dr Coats and agrees to follow up with Dr Carpenter for pall med ongoing sx mgt. I spoke very lightly with them about needing to begin thinking of contingency plans ie for what-if scenarios and to think about what are the priorities for her that we as her medical team should know about so we assure goal concordant care consistently. I lightly reviewed best case/worst case scenarios. We did NOT address code status as she began to tire. (5) Palliative care by specialist: (6) Metastatic cancer to brain: (7) STEEL ROLLER (ventriculoperitoneal) shunt status: Plan As above Thank you for allowing us to participate in the ongoing care of this patient. Please page with any additional concerns. Mariza Shay DNP Director, Palliative Medicine Admission and Anticipated Discharge Date Admission Date: April 16, 2024 Subjective Padmaja is feeling better More alert, smiling less nausea, taking more PO but admits she does not hydrate like she knows she needs to pain improved after 2 days of decadron dizzy with movement dagmar if sitting up too fast or if being transported too quickly and sister are at bedside Review of Systems Review of Systems: All systems reviewed & are unremarkable except as noted in Subjective Physical Exam Physical Exam: Sitting upright in bed, and sister. Awake but fatigued appearing. pupils reactive. There is no bitemporal wasting. Pharynx pink, dentition is intact. Neck is tender on left, palpable tightness. There is no stridor. Respiratory effort normal at rest. No conversational dyspnea. Lungs are clear bilaterally but overall diminished. Heart tones S1-S2. No murmur noted. Mediport on left chest noted. Abdomen is soft, nontender, bowel sounds present. Moving all extremities with mild generalized weakness. Skin is pale, warm and dry. No rashes or lesions noted. Face is symmetric and speech is normal but slow. Moves in a guarded manner. Overall weak and frail appearing. Results & Data Vital Signs (Past 12 Hours) Vital Signs Temp Pulse Resp BP BP Pulse Ox O2 Del Method 04/24/24 12:05 36.6 C 78 20 110/76 96 Room Air 04/24/24 07:52 36.4 C L 57 L 18 110/72 96 Room Air Laboratory Results 04/22/24 Range/Units 06:34 WBC 6.42 (4.8-10.8) K/ul RBC 4.46 (4.20-5.40) M/uL Hgb 12.9 (12.0-16.0) g/dl Hct 38.1 (37.0-47.0) % MCV 85.4 (80.0-100.0) fL MCH 28.9 (25.0-34.0) pg MCHC 33.9 (32.0-36.0) g/dL RDW Std Deviation 43.0 (36.4-46.3) fL RDW Coeff of Abigail 13.7 (11.5-14.5) % Plt Count 319 (130-400) K/uL MPV 8.9 L (9.4-12.4) fL Immature Gran % (Auto) 0.9 % Neut % (Auto) 65.4 % Lymph % (Auto) 24.6 % Thomas % (Auto) 8.6 % Eos % (Auto) 0.3 % Baso % (Auto) 0.2 % Neut # (Auto) 4.20 (1.40-6.50) K/uL Lymph # (Auto) 1.58 (1.20-3.40) K/uL Thomas # (Auto) 0.55 (0.11-0.59) K/uL Eos # (Auto) 0.02 (0.00-0.50) K/uL Baso # (Auto) 0.01 (0.00-0.20) K/uL Immature Gran # (Auto) 0.06 (0.01-0.20) K/uL Sodium 136 (136-145) mmol/L Potassium 4.1 (3.5-5.1) mmol/L Chloride 104 (98-107) mmol/L Carbon Dioxide 26 (21-32) mmol/L Anion Gap 6 (3-11) BUN 17 (6-23) mg/dl Creatinine 0.47 L (0.6-1.2) mg/dl Est Cr Clr Drug Dosing 143.2 ml/min eGFR 123.35 BUN/Creatinine Ratio 36.2 H (10-20) Glucose 84 (70-99(Fasting)) mg/dl Calcium 9.1 (8.6-10.3) mg/dl Magnesium 1.9 (1.7-2.4) mg/dl Diagnostic Findings Chest X-Ray 04/16/24 11:30 XR chest 1V portable CLINICAL HISTORY: viral sx COMPARISON STUDY: 07/23/2022 FINDINGS: Stable left chest port. Heart size and pulmonary vasculature are n ormal. No effusion or consolidation. IMPRESSION: No pneumonia seen. ACT 112: Negative or not required by law. Electronically signed by: Oswaldo Delgado M.D. 04/16/2024 11:[address] 04/16/24 12:19 CT OF THE HEAD WITHOUT CONTRAST CLINICAL HISTORY: Metastatic disease. Nausea, vomiting and headaches. COMPARISON STUDY: MRI of the brain February 01, 2024. Head CT February 04, 2024. CT DOSE: 625.8 mGy.cm TECHNIQUE: Helical axial images of the head were obtained without IV contrast. Automated exposure control was utilized for the study. A dose lowering technique was utilized adhering to the principles of ALARA. FINDINGS: No acute intracranial hemorrhage is present. Multiple hyperdense intra-axial lesions consistent with metastases are again noted. Associated vasogenic edema is present. Edema is greatest within the left cerebellar hemisphere. Effacement of the fourth ventricle has increased since exam of February 04, 2024. Overall, mass effect within the posterior fossa has increased. There may be inferior displacement of the cerebellar tonsils. Interval placement of a right frontal ventriculostomy is noted. The lateral ventricles are slit-like. The tip is within the third ventricle. There are no extra-axial collections. There are no findings to suggest acute dural sinus stenosis or acute territorial infarct. IMPRESSION: 1. Interval placement of a right frontal ventriculostomy with decompression of the lateral and third ventricles. Slit-like ventricles raises the possibility of over shunting. 2. Mild progression of metastatic disease with increase in significant mass effect within the posterior fossa, as described above. Increased effacement of the fourth ventricle with possible mild inferior displacement of the cerebellar tonsils. ACT 112: Negative or not required by law. Electronically signed by: Kurtis Peralta M.D. 04/16/2024 1:49 PM PG Care Time/CCT Total # of Minutes Spent Total Time Spent with Patient: Total time spent is greater than 50% in coordination of care (as documented) at patient's floor/unit and/or counseling patient: I spent 120 minutes overall addressing this case: 10 min in medical data review/discussion with referring p rovider(s) and/or preparation for the visit 15 min in direct interaction with the patient/exam 60 min in Advance Care Planning/Goals of Care discussions as detailed above in note (must be >16min) 15 min in subsequent review and synthesis of assessment and plan 20 min communicating with other providers regarding the patient's case: primary team OSH oncology, OSH pall med Prolonged Care Time Prolonged Care Time: Yes Advanced Care Planning 42153 Advanced Care Planning 30 Min 60374 Advanced Care Planning Additional 30 Min [place] [address] SUB INP/OBS CARE 3/50MIN (25 - SIGNIFICANT, SEPARATELY IDENTIFIABLE ) Patient Type Established Medical Decision Making High Complexity Diagnoses Intractable headache R51.9 Cancer related pain G89.3 Intractable nausea and vomiting R11.2 Advanced care planning/counseling discussion Z71.89 Palliative care by specialist Z51.5 Metastatic cancer to brain C79.31 STEEL ROLLER (ventriculoperitoneal) shunt status Z98.2 Additional Codes Advanced Care Planning - 08995 Advanced Care Planning 30 Min: 78844 Advanced Care Planning 30 Min ([id number]) Advanced Care Planning - 99251 Advanced Care Planning Additional 30 Min: 50609 Advanced Care Planning Additional 30 Min ([id number]) Prolonged Care Time - Prolonged Care Time: Yes ([id number])
[2024-04-24] MEDS: POLYETHYLENE (MIRALAX) 17 GM PACK PO SCH (12:47)
[2024-04-24] MEDS: MoRPHine SULFATE 2 MG/ML CARP IV PRN (12:48)
[2024-04-24] MEDS: dexAMETHasone 4 MG in SYRINGE 0 ML IV SCH (13:48)
--- NOTE | 2024-04-25 17:55 | Hospitalist Progress Note ---
Date of Service April 25, 2024 Assessment & Plan (1) Cancer related pain: (2) Metastatic cancer to brain: (3) Intractable nausea and vomiting: (4) Intractable headache: (5) Breast cancer, stage 4: Plan 38-year-old woman who has triple positive metastatic breast cancer with extens jeremías brain mets as well as longstanding bone mets including c-spine who was admitted with severe left-sided headache and nausea related to increased intracranial pressure from brain metastases. 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 She did have a HOME HEALTH CARE WORKER shunt placed late in January at [facility] to help with the situation, she had a recent clinic visit with neurosurgery and the shunt settings were appropriate. [facility] neurosurgeon was called on admission and he recommended treatment with dexamethasone and evaluation by radiation oncologist. On prior chart review patient had declined whole brain radiation in January at [facility] and [facility]. Subsequently has progressed to x-ray therapy brain radiation, and has started steroids which have been titrated to every 8 hour dosing. Follow-up with palliative care and plan is to complete radiation therapy and then follow- up with [facility] oncology for potential chemotherapy options. Metastatic breast cancer, extensive brain metastasis with bony/C-spine mets - see progress note 04/20 for some additional details of her overall clinical course T1 cpN1a, HER2 positive ER positive stage IV breast cancer metastatic to brain MRI 01/2024 - bilateral multifocal brain mets, both cerebral and cerebellar with peritumoral edema, L cerebellar met causing mass effect on 4th ventricle and 4-5mm rightward midline shift of posterior fossa. Per patient and they plan to resume chemotherapy at [facility] Started agreeing to take dexamethasone again over weekend although had a dose reduction with subsequent improvement in level of alertness and resolution of nausea, headache persists still using BUSINESS BROKER morphine. dexamethasone dose is currently low at 4 mg q12 Discussed risk/benefits again of dexamethasone, patient agreeable to switch to dexamethasone every 8 rather than every 12 which has been updated with next dose at 2 PM. Anticipate continuing steroids through radiation followed by taper Whole brain x-ray therapy plan for 10 days, started 04/18. Treatments will continue through with 04/27, if patient symptoms are adequately controlled on oral medications, home care resources are able to be coordinated, and follow-up is arranged could potentially progress to complete these as outpatient Tylenol IV continued for pain, patient reports that she feels she had significant benefit from this compared to oral formulations and will continue Following discharge anticipate transition to [facility] palliative and oncology care. Patient is interested in following locally with kg Amin [facility] oncology to help consolidate her care. Did offer to write a letter of medical necessity to help expedite visa process for her parents who live in [place]. Patient reports that her parents are not awar e of her current diagnosis and condition and do not wish to make them worry. Did discuss concerns for delays and difficulty with visas and immigration, and expressed concern that her parents could be unable to see her in a critical time due to delays related to this. Padmaja has been present understanding of this, appreciative of offer to write a letter of medical necessity and while they do not wish for this to be done at this time will reach out if/when they feel ready for this. Progressing well, pain/nausea are now adequately controlled with oral morphine. Patient does still feel very unsteady for her feet and per family they cannot provide the resources to care for her and help her with daily activities safely with her current level of activity. Disposition Planning: - Discussed and recommended progression to outpatient radiation therapy. She reports that due to her unsteadiness on her feet and weakness her and her do not feel they can care for her safely at home however she would like to avoid placement and her hopes are with her improvement she is hoping to be strong enough to be able to return home safely. PT evaluation pending tomorrow. Discussed that with her weakness and unsteadiness on her feet would plan for placement if indicated based on her evaluations tomorrow as even if improvement in would not likely have a significant change that would meaningfully change her overall safety over the weekend. Also discussed that there are risks ongoing hospitalization including acquired infections which she strongly recommended to avoid and that would not recommend she remain hospitalized on this for acute inpatient needs. She expresses understanding of this but again is hopeful to be strong enough to avoid placement and feels she is both not started after at home currently but potentially going to get there prior to leaving the hospital. Agreeable to PT/OT reevaluations tomorrow. Related complications : # nausea: Continue oral antiemetics. Improved with resumption of dex # headache: Transitioning to oral morphine as able, continue Tylenol. 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 Palliative care is consulting. Continue to monitor for any signs and symptoms of myelopathy related to c-spine mets. # constipation -daily MiraLAX switched to scheduled, Dulcolax available as need ed, suppository as needed DVT proph - enoxaparin. no evidence of ICH on CTs, risk of VTE is high and benefit outweighs the risk of prophylaxis dose anticoagulation CODE STATUS: Full code. Admission and Anticipated Discharge Date Admission Date: April 16, 2024 Subjective Patient is seen in afternoon reassessment. Following her radiation treatment she reports she feels she is starting to improve. She does have some dizziness when trying to turn her head to the left but nausea is better. She still feels very weak and unsteady on her feet and requires assistance to ambulate to the bathroom and around the room. No vomiting today. Is with adequately controlled pain on oral morphine, and tolerating steroids every 8 hours well. Discussed and recommended progression to outpatient radiation therapy. She reports that due to her unsteadiness on her feet and weakness her and her do not feel they can care for her safely at home however she would like to avoid placement and her hopes are with her improvement she is hoping to be strong enough to be able to return home safely. PT evaluation pending tomorrow. Discussed that with her weakness and unsteadiness on her feet would plan for placement if indicated based on her evaluations tomorrow as even if improvement in would not likely have a significant change that would meaningfully change her overall safety over the weekend. Also discussed that there are risks ongoing hospitalization including acquired infections which she strongly recommended to avoid and that would not recommend she remain hospitalized on this for acute inpatient needs. She expresses understanding of this but again is hopeful to be strong enough to avoid placement and feels she is both not started after at home currently but potentially going to get there prior to leaving the hospital. Agreeable to PT/OT reevaluations tomorrow. Otherwise stable no acute concerns. Progressing and overall slightly clinically improved today compared from prior Physical Exam Physical Exam: General: And oriented to name. Answers questions appropriately. Appears fatigued but nontoxic. Color appears improved today. Linear thought process HEENT: Atraumatic, normocephalic. Pupils equal. Vision and hearing grossly intact Pulm: Symmetrical chest rise. No increase in work of breathing. No respiratory distress. Results & Data Results & Data Vital Signs (Past 12 Hours) Vital Signs Temp Pulse Resp BP Pulse Ox O2 Del Method 04/25/24 07:22 36.3 C L 67 18 114/79 97 Room Air PG Care Time/CCT Total # of Minutes Spent Total Time Spent with Patient: Total time spent is greater than 50% in coordination of care (as documented) at patient's floor/unit and/or counseling patient: Coding Level of Care Code 48773 SUB INP/OBS CARE 2/35MIN Diagnoses Cancer related pain G89.3 Metastatic cancer to brain C79.31 Intractable nausea and vomiting R11.2 Intractable headache R51.9 Breast cancer, stage 4 C50.919
--- NOTE | 2024-04-26 16:26 | Hospitalist Progress Note ---
Date of Service April 26, 2024 Assessment & Plan (1) Cancer related pain: (2) Metastatic cancer to brain: (3) Intractable nausea and vomiting: (4) Intractable headache: (5) Breast cancer, stage 4: Plan 38-year-old woman who has triple positive metastatic breast cancer with extens jeremías brain mets as well as longstanding bone mets including c-spine who was admitted with severe left-sided headache and nausea related to increased intracranial pressure from brain metastases. 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 She did have a SOFTWARE SUPPORT REPRESENTATIVE shunt placed late in January at [facility] to help with the situation, she had a recent clinic visit with neurosurgery and the shunt settings were appropriate. [facility] neurosurgeon was called on admission and he recommended treatment with dexamethasone and evaluation by radiation oncologist. On prior chart review patient had declined whole brain radiation in January at [facility] and [facility]. Subsequently has progressed to x-ray therapy brain radiation, and has started steroids which have been titrated to every 8 hour dosing. Follow-up with palliative care and plan is to complete radiation therapy and then follow- up with [facility] oncology for potential chemotherapy options. Metastatic breast cancer, extensive brain metastasis with bony/C-spine mets - see progress note 04/20 for some additional details of her overall clinical course T1 cpN1a, HER2 positive ER positive stage IV breast cancer metastatic to brain MRI 01/2024 - bilateral multifocal brain mets, both cerebral and cerebellar with peritumoral edema, L cerebellar met causing mass effect on 4th ventricle and 4-5mm rightward midline shift of posterior fossa. Per patient and they plan to resume chemotherapy at [facility] Started agreeing to take dexamethasone again over weekend although had a dose reduction with subsequent improvement in level of alertness and resolution of nausea, headache persists still using CHIEF MECHANICAL OFFICER morphine. dexamethasone dose is currently low at 4 mg q12 Continue dexamethasone therapy 10 total treatments for x-ray therapy, no therapy anticipated over the weekend. Will resume next Monday/Monday/Monday Following discharge anticipate transition to [facility] palliative and oncology care. Patient is interested in following locally with [facility] oncology to help consolidate her care. Did offer to write a letter of medical necessity to help expedite visa process for her parents who live in [place]. Patient reports that her parents are not aware of her current diagnosis and condition and do not wish to make them worry. Did discuss concerns for delays and difficulty with visas and immigration, and expressed concern that her parents could be unable to see her in a critical time due to delays related to this. Padmaja has been present understanding of this, appreciative of offer to write a letter of medical necessity and while they do not wish for this to be done at this time will reach out if/when they feel ready for this. Progressing well, pain/nausea are now adequately controlled with oral morphine. Patient still feels slightly unsteady on her feet however did ambulate adequately with physical therapy today. Some dizziness with transfers and having a left foot x-ray to evaluate for overlying swelling and point tenderness. Does have metastatic disease of the cervical spine, is at risk for bony mets/pathologic fracture of the foot as well. Disposition Planning: - Discussed and recommended progression to outpatient radiation therapy. Did also have similar discussion yesterday. She did well with physical therapy and while she is improving from when she came in will not likely have complete resolution of the symptoms even with completion of her radiation therapy. Reviewed that if her symptoms precluded transport to and from treatment then planning and accommodations for this and arrangements either at home or with assisted facilities temporarily should be planned for, and if she is well enough to tolerate these even with some discomfort and dizziness then recommend progression to home with support service especially minimize risks of hospital- acquired infections and other poor outcomes associated with prolonged hospitalization. Family does acknowledge that they would prefer to remain inpatient, but that if she is medically stable for discharge home and needs to do so then they will work on these arrangements. CM following. Hopefully will transition home this weekend. Related complications : # nausea: Continue oral antiemetics. Improved # headache: Improved, continue oral morphine and Tylenol #C-spine metastasis: Metastatic disease at C3, C4, C6, pathologic compression fracture at C6 with retropulsion, hypermetabolic bone lesions on 12/2023 PET/CT, pathologic fracture at C6/T8/L4. Palliative care is consulting. Continue to monitor for any signs and symptoms of myelopathy related to c-spine mets. # constipation -daily MiraLAX switched to scheduled, Dulcolax available as needed, suppository as needed DVT proph - enoxaparin. no evidence of ICH on CTs, risk of VTE is high and benefit outweighs the risk of prophylaxis dose anticoagulation CODE STATUS: Full code. Admission and Anticipated Discharge Date Admission Date: April 16, 2024 Subjective Seen at the bedside postradiation treatment. Does have some left lateral foot pain with focal tenderness overlying the metatarsal. Dizziness is improving still with some lightheaded and dizziness and difficulty when turning and transferring to a wheelchair No fevers chills or sweats Discussed return home and outpatient treatment at length with her and her . Mildly greatly prefer to complete treatments as an inpatient understand the risk of secondary infections, and that her current medications can be transition to orals. PT/OT with recommend for return home. Will make arrangements and understand that if they have to return home and they will do so however express reservations about her ability to tolerate transport to and from her treatments and note that if these aggravate her condition would likely have to return to the ER. Will follow overnight, awaiting x-rays of her left foot to evaluate for hairline fracture and will continue to ambulate with assistance. With her engaging with physical therapy today hopefully she will tolerate transfer well however ongoing risks of ANEESH outweigh the benefits of prolonged hospitalization at this time Physical Exam Physical Exam: General: And oriented to name. Answers questions appropriately. Appears fatigued but nontoxic. Color appears improved today. Linear thought process HEENT: Atraumatic, normocephalic. Pupils equal. Vision and hearing grossly intact Pulm: Symmetrical chest rise. No increase in work of breathing. No respiratory distress. Extremities: Left foot with tenderness to palpation overlying the fifth plantar and lateral metatarsal. No calcaneal or talar tenderness. Slight overlying swelling. PG Care Time/CCT Total # of Minutes Spent Total Time Spent with Patient: Total time spent is greater than 50% in coordination of care (as documented) at patient's floor/unit and/or counseling patient: Coding Level of Care Code 91857 SUB INP/OBS CARE 2/35MIN Diagnoses Cancer related pain G89.3 Metastatic cancer to brain C79.31 Intractable nausea and vomiting R11.2 Intractable headache R51.9 Breast cancer, stage 4 C50.919
--- NOTE | 2024-04-26 16:26 | XRay Report ---
EXAM: Radiographs of the Left Foot Complete 3 Views INDICATION: Fifth metatarsal pain with weightbearing. TECHNIQUE: Frontal, lateral and oblique views of the left foot. COMPARISON: No relevant prior studies available. FINDINGS: Bones/joints: No fracture, erosion or dislocation. Soft tissues: No abnormality noted. No radiopaque foreign body noted. IMPRESSION: No abnormality noted. ACT 112: N/A Electronically signed by Lynne Vizcarra 04-26-2024 4:25 PM
[2024-04-26] MEDS: bisacodyL 5 MG TABEC PO PRN (22:04)
[2024-04-27 07:00] LABS: BUN Creatinine Ratio 44.2 (10-20); Calcium 8.8 mg/dl (8.6-10.3); Creatinine Clr Calc Pharmacy 129.4 ml/min; Potassium 3.8 mmol/L (3.5-5.1)
--- NOTE | 2024-04-27 12:11 | Hospitalist Progress Note ---
Date of Service April 27, 2024 Assessment & Plan (1) Cancer related pain: (2) Metastatic cancer to brain: (3) Intractable nausea and vomiting: (4) Intractable headache: (5) Breast cancer, stage 4: Plan 38-year-old woman who has triple positive metastatic breast cancer with extens jeremías brain mets as well as longstanding bone mets including c-spine who was admitted with severe left-sided headache and nausea related to increased intracranial pressure from brain metastases. 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 She did have a R&D LAB TECHNICIAN shunt placed late in January at [facility] to help with the situation, she had a recent clinic visit with neurosurgery and the shunt settings were appropriate. [facility] neurosurgeon was called on admission and he recommended treatment with dexamethasone and evaluation by radiation oncologist. On prior chart review patient had declined whole brain radiation in January at [facility] and [facility]. Subsequently has progressed to x-ray therapy brain radiation, and has started steroids which have been titrated to every 8 hour dosing. Follow-up with palliative care and plan is to complete radiation therapy and then follow- up with [facility] oncology for potential chemotherapy options. Metastatic breast cancer, extensive brain metastasis with bony/C-spine mets - see progress note 04/20 for some additional details of her overall clinical course T1 cpN1a, HER2 positive ER positive stage IV breast cancer metastatic to brain MRI 01/2024 - bilateral multifocal brain mets, both cerebral and cerebellar with peritumoral edema, L cerebellar met causing mass effect on 4th ventricle and 4-5mm rightward midline shift of posterior fossa. Per patient and they plan to resume chemotherapy at [facility] Started agreeing to take dexamethasone again over weekend although had a dose reduction with subsequent improvement in level of alertness and resolution of nausea, headache persists still using PLASMA TABLE OPERATOR morphine. dexamethasone dose is currently low at 4 mg q12 Continue dexamethasone therapy 10 total treatments for x-ray therapy, no therapy anticipated over the weekend. Will resume next Monday/Monday/Monday Following discharge anticipate transition to [facility] palliative and oncology care. Patient is interested in following locally with [facility] oncology to help consolidate her care. Did offer to write a letter of medical necessity to help expedite visa process for her parents who live in [place]. Patient reports that her parents are not aware of her current diagnosis and condition and do not wish to make them worry. Did discuss concerns for delays and difficulty with visas and immigration, and expressed concern that her parents could be unable to see her in a critical time due to delays related to this. Padmaja has been present understanding of this, appreciative of offer to write a letter of medical necessity and while they do not wish for this to be done at this time will reach out if/when they feel ready for this. Recurrent nausea and constipation not adequately improved with MiraLAX, bisacodyl. Did require suppository for small bowel movement. Increased nausea and poor appetite may be due to intracranial process but also with constipation likely worsened with morphine Milk of magnesia added every 6 hours. Volume contracted 1 L of additional fluid added. Not tolerating adequate p.o. today Abdomen is nontender without rebound/guarding Disposition pending stability of p.o. intake and nausea control. Required IV fluids and was hypotensive this morning. Related complications : # nausea: Continue oral antiemetics. Improved # headache: Improved, continue oral morphine and Tylenol #C-spine metastasis: Metastatic disease at C3, C4, C6, pathologic compression fracture at C6 with retropulsion, hypermetabolic bone lesions on 12/2023 PET/CT, pathologic fracture at C6/T8/L4. Palliative care is consulting. Continue to monitor for any signs and symptoms of myelopathy related to c-spine mets. # constipation -daily MiraLAX switched to scheduled, Dulcolax available as needed, suppository as needed. Milk of magnesia added for continued constipation. DVT proph - enoxaparin. no evidence of ICH on CTs, risk of VTE is high and benefit outweighs the risk of prophylaxis dose anticoagulation CODE STATUS: Full code. Admission and Anticipated Discharge Date Admission Date: April 16, 2024 Subjective Seen the bedside this morning. Slightly hypotensive, more nausea and not tolerating p.o. intake. Has not had a bowel movement in several days despite MiraLAX and Dulcolax other than 1 small bowel movement after suppository. Milk of magnesia added every 6 hours discussed with nursing staff. Volume contracted 1 L LR added. Has had some dizziness nausea and inability to tolerate p.o. this morning. Physical Exam Physical Exam: General: Alert and oriented to name. Answers questions appropriately. Appears fatigued HEENT: Atraumatic, normocephalic. Pupils equal. Vision and hearing grossly intact Pulm: Symmetrical chest rise. No increase in work of breathing. No respiratory distress. Abdomen: Nontender, soft and no rebound/guarding but is diffusely dull to percussion Results & Data Results & Data Vital Signs (Past 12 Hours) Vital Signs O2 Del Method 04/27/24 07:20 Room Air PG Care Time/CCT Total # of Minutes Spent Total Time Spent with Patient: Total time spent is greater than 50% in coordination of care (as documented) at patient's floor/unit and/or counseling patient: Coding Level of Care Code 84321 SUB INP/OBS CARE 3/50MIN Diagnoses Cancer related pain G89.3 Metastatic cancer to brain C79.31 Intractable nausea and vomiting R11.2 Intractable headache R51.9 Breast cancer, stage 4 C50.919
[2024-04-27] MEDS: LACTATED RINGER'S 1,000 ML IV SCH (12:58)
[2024-04-27] MEDS: MAGNESIUM HYDROXIDE SUSP 30 ML UDC PO PRN (17:07)
[2024-04-27] MEDS: FAMOTIDINE 20MG IV PUSH 20 MG/5 ML SYR IV STA (18:38)
[2024-04-28 06:52] LABS: Calcium 8.6 mg/dl (8.6-10.3); Creatinine Clr Calc Pharmacy 134.6 ml/min; Potassium 4.1 mmol/L (3.5-5.1)
[2024-04-29 06:57] LABS: BUN Creatinine Ratio 30.8 (10-20); Calcium 8.4 mg/dl (8.6-10.3); Creatinine Clr Calc Pharmacy 129.4 ml/min; Potassium 3.6 mmol/L (3.5-5.1)
[2024-04-29] MEDS ORDERED: ACETAMINOPHEN 500 MG TAB PO PRN (09:54)
--- NOTE | 2024-04-29 18:50 | XRay Report ---
EXAM: XR abdomen 2V w PA chest CLINICAL HISTORY: abd bloating; could be ileus, or constipation. TECHNIQUE: X-ray images of the abdomen were obtained in AP views including chest posteroanterior (PA) view. COMPARISON: CXR dated 04/16/2024. FINDINGS: Pulmonary Parenchyma: Lungs are clear bilaterally. No evidence of consolidation, collapse, or focal opacities. No pulmonary nodules identified. No evidence of pleural effusion or pleural thickening. Left sided chest port is seen. Heart and Mediastinum: Heart size and shape are normal. No mediastinal widening or masses. No hilar or mediastinal lymphadenopathy. Bony Thorax: Right 10th rib old fracture with callus formation. Soft Tissues: Soft tissues overlying the chest wall are unremarkable. Abdomen: Gas Pattern: Gas pattern within the abdomen is normal. No evidence of bowel obstruction or distention. Diffuse colonic fecal loading Soft Tissues: Soft tissues of the abdomen appear normal without evidence of masses or calcifications. Liver, spleen, and kidneys are of normal size and position. A tube is seen projected over the right side of the chest, abdomen and pelvis likely CLINICAL AUDIOLOGIST shunt. Recommend clinical correlation IMPRESSION: 1. No acute cardiopulmonary abnormalities identified. 2. Diffuse colonic fecal loading likely constipation. 3. Recommend clinical correlation. Electronically signed by Bobby Granado 04-29-2024 6:50 PM
--- NOTE | 2024-04-29 19:16 | Hospitalist Progress Note ---
Date of Service April 29, 2024 Assessment & Plan (1) Intractable headache: Plan: Patient presented with acute/chronic headache & left-sided neck pain. Headaches were due to increased intracranial pressure from brain mets. Neck pain - likely from bony mets; can't rule out other factors. BOX ATTACHER shunt placed 01/2024 at [facility]. 04/11 - had shunt checked by [facility] neurosurgery and was told the shunt was working correctly. CT head done at time of this admission showed findings similar to the MRI Brain done the week prior at [facility]. At time of admission was placed on high dose IV steroids; remains on such - dexamethasone 4mg IV q8h. Cont tylenol 1gm TID prn Cont morphine IV or PO prn Cont whole brain radiation -- today is fraction #8 of 10. (2) Breast cancer, stage 4: Plan: initial dx 2021 triple positive disease right breast was followed by CCP in the past most care has been at [facility] including neurosurgical care for her BOX ATTACHER shunt has not had any chemotherapy since 02/2024 prognosis is very, very poor in light of #1 patient has intentions to resume chemotherapy in the future if possible (3) Metastatic cancer to brain: Plan: extensive intracranial mets - discovered late 2023 s/p BOX ATTACHER shunt [place]20[place] [facility] for increased ICP and cerebellar tonsillar herniation see #1 above (4) Metastasis to bone: Plan: known mets to the cervical spine and other locations prior imaging in 2021 showed mets to C3/C4/C6 and pathological compression fracture of C6 with retropulsion of bony fragments (5) Intractable nausea and vomiting: Plan: severe constipation as seen on imaging today, gastritis, effects from brain mets, etc likely all to blame treat constipation cont steroids consider PPI (6) BOX ATTACHER (ventriculoperitoneal) shunt status: Plan: see discussion in #1 above (7) Constipation: Plan: severe this is the cause of her abd distension and likely contributing to multiple other GI symptoms after films were complete I showed these to the patient and her family recommended dulcolax PO daily + miralax - likely to need 3-4 doses/day of such to get ahead of this Admission and Anticipated Discharge Date Admission Date: April 16, 2024 Subjective patient resting in bed sister, both at bedside she reports improvement in headaches/neck pain since admission she is tolerating radiation treatments had treatment #8 today no BM in several days she c/o abdominal bloating, burping/belching, intermittent nausea, poor appetite she has had vomiting at times which relieves many of the above symptoms we discussed appetite stimulants, anti-nausea meds, etc. Review of Systems Review of Systems: pulm - no dyspnea CV - no chest pain GI - no abd pain Physical Exam Physical Exam: gen - looks much better than my previous visit with her (at time of admission), NAD mouth - MMM heart - RRR, s1 s2, no murmur lungs - CTA b/l abd - distended, BS+, NT, no masses, no HSM ext - no edema, pulses b/l feet 2+ Results & Data Results & Data Vital Signs (Past 12 Hours) Vital Signs Temp Pulse Resp BP Pulse Ox O2 Del Method 04/29/24 16:06 36.7 C 77 16 104/68 95 Room Air 04/29/24 07:33 36.5 C 64 16 100/60 96 Room Air Laboratory Results Laboratory Results - last 24 hr 04/29/24 05:55 Sodium 138 Potassium 3.6 Chloride 101 Carbon Dioxide 28 Anion Gap 9 BUN 16 Creatinine 0.52 L Est Cr Clr Drug Dosing 129.4 eGFR 120.38 BUN/Creatinine Ratio 30.8 H Glucose 149 H Calcium 8.4 L Diagnostic Findings Chest/Abdomen X-ray 04/29/24 17:10 EXAM: XR abdomen 2V w PA chest CLINICAL HISTORY: abd bloating; could be ileus, or constipation. TECHNIQUE: X-ray images of the abdomen were obtained in AP views including chest posteroanterior (PA) view. COMPARISON: CXR dated 04/16/2024. FINDINGS: Pulmonary Parenchyma: Lungs are clear bilaterally. No evidence of consolidation, collapse, or focal opacities. No pulmonary nodules identified. No evidence of pleural effusion or pleural thickening. Left sided chest port is seen. Heart and Mediastinum: Heart size and shape are normal. No mediastinal widening or masses. No hilar or mediastinal lymphadenopathy. Bony Thorax: Right 10th rib old fracture with callus formation. Soft Tissues: Soft tissues overlying the chest wall are unremarkable. Abdomen: Gas Pattern: Gas pattern within the abdomen is normal. No evidence of bowel obstruction or distention. Diffuse colonic fecal loading Soft Tissues: Soft tissues of the abdomen appear normal without evidence of masses or calcifications. Liver, spleen, and kidneys are of normal size and position. A tube is seen projected over the right side of the chest, abdomen and pelvis likely BOX ATTACHER shunt. Recommend clinical correlation IMPRESSION: 1. No acute cardiopulmonary abnormalities identified. 2. Diffuse colonic fecal loading likely constipation. 3. Recommend clinical correlation. Electronically signed by Bobby Granado 04-29-2024 6:50 PM PG Care Time/CCT Total # of Minutes Spent Total Time Spent with Patient: Total time spent is greater than 50% in coordination of care (as documented) at patient's floor/unit and/or counseling patient: Coding Level of Care Code 42594 SUB INP/OBS CARE 2/35MIN Diagnoses Intractable headache R51.9 Breast cancer, stage 4 C50.919 Metastatic cancer to brain C79.31 Metastasis to bone C79.51 Intractable nausea and vomiting R11.2 BOX ATTACHER (ventriculoperitoneal) shunt status Z98.2 Constipation K59.00
[2024-04-29] MEDS: bisacodyL 5 MG TABEC PO SCH (19:57)
[2024-04-29] MEDS: POLYETHYLENE (MIRALAX) 17 GM PACK PO SCH (19:57)
[2024-04-29] MEDS: POLYETHYLENE (MIRALAX) 17 GM PACK ONE (20:40)
[2024-04-30] MEDS: POLYETHYLENE (MIRALAX) 17 GM PACK PO PRN (02:39)
[2024-04-30] MEDS: POLYETHYLENE (MIRALAX) 17 GM PACK ONE (02:40)
--- NOTE | 2024-04-30 10:40 | Palliative Care Progress Note ---
Date of Service April 30, 2024 Assessment & Plan (1) Palliative care by specialist: Plan: Pt would like to have single point of provider communication only, will therefore sign off and remain available if needed for re engagement., She agrees to follow up in OP Pall Med with Dr Carpenter in [facility]. She had stated she wants to transfer oncology care to Dr Coats at [facility] which is closer to home than driving to [place] (2) Cancer related pain: Admission and Anticipated Discharge Date Admission Date: April 16, 2024 Subjective remains on RT Results & Data Vital Signs (Past 12 Hours) Vital Signs Temp Pulse Resp BP Pulse Ox O2 Del Method 04/30/24 07:26 Room Air 04/30/24 07:20 36.2 C L 65 16 116/77 96 Room Air PG Care Time/CCT Total # of Minutes Spent Total Time Spent: 15 Total Time Spent with Patient: Total time spent is greater than 50% in coordination of care (as documented) at patient's floor/unit and/or counseling patient: Coding [place] [address] SUB INP/OBS CARE 03/09MIN Patient Type Established History Comprehensive Diagnoses Palliative care by specialist Z51.5 Cancer related pain G89.3
--- NOTE | 2024-04-30 17:38 | Hospitalist Progress Note ---
Date of Service April 30, 2024 Assessment & Plan (1) Intractable headache: Plan: Patient presented with acute/chronic headache & left-sided neck pain. Headaches were due to increased intracranial pressure from brain mets. Neck pain - likely from bony mets; can't rule out other factors. SEQUINS SLINGER shunt placed 01/2024 at [facility] due to impending uncal herniation at that time from her extensive brain mets. 04/11/24 - had shunt checked by [facility] neurosurgery and was told the shunt was working correctly. CT head done at time of this admission showed findings similar to the MRI Brain done the week prior at [facility]. (extensive mets, signs of increased ICP, etc) At time of admission was placed on high dose IV steroids; remains on such - dexamethasone 4mg IV q8h. She has told previous providers that she may not take the steroids at time of discharge. Cont tylenol 1gm TID prn Cont morphine IV or PO prn Cont whole brain radiation -- today is fraction #9 of 10. (2) Breast cancer, stage 4: Plan: initial dx 2021 triple positive disease right breast was followed by [facility] in the past most care has been at [facility] including neurosurgical care for her SEQUINS SLINGER shunt has not had any chemotherapy since 02/2024 prognosis is very, very poor in light of #1 patient has intentions to resume chemotherapy in the future if possible she is in the process of switching her local cancer care in [place] from Sabino khan/onc to Dr Kashmir Coats at [facility] office to keep everything within the same system (3) Metastatic cancer to brain: Plan: extensive intracranial mets - discovered late 2023 s/p SEQUINS SLINGER shunt late 01/2024 at [facility] for increased ICP and cerebellar tonsillar herniation see #1 above (4) Metastasis to bone: Plan: known mets to the cervical spine and other locations prior imaging in 2021 showed mets to C3/C4/C6 and pathological compression fracture of C6 with retropulsion of bony fragments she denies motor or sensory symptoms of her arms neck pain improved while hospitalized (5) Intractable nausea and vomiting: Plan: severe constipation as seen on imaging 04/29/24, gastritis, effects from brain mets/increased ICP, etc likely all to blame treating the constipation cont steroids for brain edema consider PPI, but for now pepcid 20mg IV x 1 did offer scheduled zofran for the nausea - she declined if N/V persists despite resolution of constipation consider repeat CT a/p (6) SEQUINS SLINGER (ventriculoperitoneal) shunt status: Plan: see discussion in #1 above (7) Constipation: Plan: severe see x-rays dated 04/29/24 this is the cause of her abd distension and likely contributing to multiple other GI symptoms including N/V, bloating, etc. recommended dulcolax PO daily + miralax - likely to need at least 2 doses/day of such to get ahead of this she has had 2 BMs since yesterday pm cont bowel regimen Plan patient requesting d/c on 05/01/24 after her final radiation treatment it is her culture's New Year on and she wants to celebrate this at home with family if she is keeping food/beverage down and symptoms are controlled d/c tomorrow is quite possible updated at bedside in addition to changing her local onc care to Dr Kashmir Coats, she is also wanting to change her palliative care to Dr Carpenter in [facility] Admission and Anticipated Discharge Date Admission Date: April 16, 2024 Subjective patient reports taking the dulcolax yesterday and today along with several doses of miralax she did have 2 moderate BMs since yesterday pm despite such she continues with nausea, burping, belching, dyspepsia, stomach upset in general she does feel less bloated today following her bowel movements still not able to eat/drink as much as she would want she had her radiation treatment earlier without any issue she asked if she could d/c home tomorrow following her final XRT session in the cancer center did offer her scheduled zofran for the nausea - declined did offer pepcid IV for the dyspepsia, etc - accepted Review of Systems Review of Systems: - no UTI symptoms (no dysuria, foul smelling urine, etc) neuro - headaches much improved musculo - neck pain much improved Physical Exam Physical Exam: gen - looks same as yesterday, NAD mouth - MMM heart - RRR, s1 s2, no murmur lungs - CTA b/l abd - distension improved today, BS+, NT, no masses, no HSM ext - no edema, pulses b/l feet 2+ psych - full affect, in good spirits, a/o x 3 Results & Data Results & Data Vital Signs (Past 12 Hours) Vital Signs Temp Pulse Resp BP Pulse Ox O2 Del Method 04/30/24 13:58 36.3 C L 70 16 110/75 97 Room Air 04/30/24 07:26 Room Air 04/30/24 07:20 36.2 C L 65 16 116/77 96 Room Air PG Care Time/CCT Total # of Minutes Spent Total Time Spent with Patient: Total time spent is greater than 50% in coordination of care (as documented) at patient's floor/unit and/or counseling patient: Coding Level of Care Code 49557 SUB INP/OBS CARE 2/35MIN Diagnoses Intractable headache R51.9 Breast cancer, stage 4 C50.919 Metastatic cancer to brain C79.31 Metastasis to bone C79.51 Intractable nausea and vomiting R11.2 SEQUINS SLINGER (ventriculoperitoneal) shunt status Z98.2 Constipation K59.00
[2024-04-30] MEDS: FAMOTIDINE 20MG IV PUSH 20 MG/5 ML SYR IV STA (18:23)
[2024-04-30 20:24] VITALS: RESP 18
[2024-05-01 11:43] VITALS: BP 124/84; PULSE 76; TEMP 97.3; O2SAT 100
--- NOTE | 2024-05-01 13:42 | Discharge Summary ---
Discharge Summary Date of Service May 01, 2024 Principal Dx & Hospital Course #1 = Principal Diagnosis (1) Intractable headache: (2) Breast cancer, stage 4: (3) Metastatic cancer to brain: (4) Metastasis to bone: (5) Intractable nausea and vomiting: (6) PEELER OPERATOR (ventriculoperitoneal) shunt status: (7) Constipation: Sabine Burris is a 38-year-old female with metastatic breast cancer admitted to [facility] from April 16 to 2024 due to metastatic cancer causing intractable headaches, nausea, vomiting. She was treated with brain radiation and dexamethasone with significant improvement in her symptoms. She was also treated for constipation with MiraLAX and Senna which helped her nausea.. She will continue with dexamethasone 4 mg BID for 1 week, followed by 4 mg daily for 1 week. Continue [id number] MiraLAX +/- senna as needed for constipation. Continue ondansetron as needed for nausea. Notes For Next Care Provider Follow-up with palliative care for ongoing symptomatic management She wishes to transfer to local [facility] oncology - referral sent to Dr Kashmir Coats Monitor for constipation Medication Changes From Visit Tapering dose of dexamethasone 4 mg BID BID for 1 week followed by daily for 1 week Oxycodone to help with cancer-related pain Ondansetron to help with nausea MiraLAX and senna as needed to help with constipation Admission HPI Per Admitting Provider 38yo female with known stage 4 triple positive breast cancer (right breast, diagnosed early 2021) with extensive intracranial metastatic disease and bony metastases - s/p PEELER OPERATOR shunt placement in late January 2024 due to cerebellar herniation/severe increased ICP from her brain mets - presents with severe left- sided parietal area headache, left-sided neck pain, and intractable nausea/emesis. Patient reports she has had several months of headache/neck pain but it had been mild and tolerable. However, she visited [facility] on , 04/11/24 to have MRI brain and to have her PEELER OPERATOR shunt checked and later that night developed worsening headache. She has been unable to eat/drink due to the persistent nausea. Her last episode of emesis was earlier this morning. CT head was completed in the ER today showing "Mild progression of metastatic disease with increase in significant mass effect within the posterior fossa, as described above. Increased effacement of the fourth ventricle with possible mild inferior displacement of the cerebellar tonsils." Following CT head Ms Burris was given 10mg of IV dexamethasone along with toradol & morphine. The ER providers then reached out to [facility]. By report oncology & neurosurgery reviewed her case. Specifically, Dr Rehman from neurosurgery and Dr Dos Santos from hematology/oncology did not feel that they could offer any interventions beyond what could be offered at [facility]. A joint decision was made that patient could be treated at [facility] & thus transfer to [facility] was deferred. During my admission assessment the patient & her did ask about consultation with radiation oncology. According to her whole brain radiation has been recommended in the past but to date Ms Burris has declined such. Mr Burris also mentioned that they never established care locally with [facility] oncology in the [place] office. Last chemotherapy was sometime in February 2024. Ms Burris denies any visual change. She denies paresthesias of the arms or legs. Denies motor weakness. She does report some dizziness (not true vertigo but a sensation of imbalance). She does feel like she could fall when trying to ambulate but has not had any mishaps/falls at home fortunately. With respect to her visit on 04/11 to the [facility] Neurosurgery clinic - pt & her were told that her PEELER OPERATOR shunt was working as expected. states the PEELER OPERATOR shunt was checked by the physician chemist assistant. MRI brain was completed that day at [facility] as well. I was able to obtain a copy of the formal report from that MRI brain. Impression is as follows -- "1. Redemonstration of extensive metastatic disease throughout the brain, with slight interval increase in size of a few lesions. 2. Redemonstrated mass effect within the posterior fossa with complete effacement of the 4th ventricle, rightward midline shift, and downward cerebellar tonsillar herniation. 3. Right frontal approach intraventricular catheter with decompression of the ventricular system." Radiology also commented that most of the lesions had surrounding vasogenic edema especially surrounding a large left cerebellar met measuring 5cm x 3.7cm. This MRI was compared to MRI done on 02/06/24. Discharge Exam Constitutional WD/WN, vitals as above Discharge Plan Discharge Items Patient Disposition: Home - Self-Care Reason For Visit: INTRACTABLE HEADACHE/NAUSEA/EMESIS; STAGE 4 BREAST Discharge Diagnosis: Metastatic cancer with brain mets Activity: Resume your previous activity Non-emergency contact: Primary Care Provider Call non-emergency contact if: you have any medication questions and your symptoms worsen Follow-up/Referrals: Kashmir Coats MD [Surgeon] - (Follow up metastatic cancer) Iwona Carpenter MD [Outside Practitioners] - (Follow up palliative care) Gwendolyn Han MD [Primary Care Provider] - Diet: Regular Addtl Attending Provider Instructions: You were admitted to [facility] from April 16 to 2024 due to metastatic cancer causing intractable headaches, nausea, vomiting. He was treated with brain radiation and dexamethasone. Will continue with dexamethasone 4 mg BID for 1 week, followed by 4 mg daily for 1 week. Continue [id number]-kyt-sjnavcl MiraLAX +/- senna as needed for constipation. Continue ondansetron as needed for nausea. You have been prescribed morphine as needed for pain relief. Please follow-up with [facility] oncology and palliative care. Pending Studies at Discharge: No Stand-Alone Forms: My [facility], Smoking Cessation Medications and DC Order Prescriptions: New ondansetron 4 mg tablet,disintegrating 4 mg PO Q6H PRN (Reason: nausea and vomiting) Qty: 90 0RF sennosides [Senokot] 8.6 mg tablet 8.6 mg PO DAILY PRN (Reason: constipation) Qty: 30 0RF polyethylene glycol 3350 [Miralax] 17 gram/dose powder 17 g PO DAILY PRN (Reason: constipation) Qty: 119 0RF dexamethasone 4 mg tablet See Rx Instructions .ROUTE .COMPLEX Qty: 21 0RF Rx Instructions: 4 mg orally twice daily for 1 week followed by once daily for 1 week oxycodone 5 mg tablet 5 mg PO Q6H PRN (Reason: pain) Qty: 14 0RF Continued multivitamin Tablet 1 tab PO DAILY acetaminophen 325 mg tablet 325 mg PO Q4H PRN (Reason: Pain) ibuprofen [Advil] 200 mg Tablet 200 mg PO DIRECTED PRN (Reason: Pain) cholecalciferol (vitamin D3) [Vitamin D3] 50 mcg (2,000 unit) tablet 2,000 unit PO DAILY Discharge Orders: Discharge Order (Routine); Ordered 05/01/24 Ordered By: Martinez Benitez Admission Data Admit Date/Time: 04/16/24 18:17 Attending Provider: Martinez Benitez Admit Provider: Martinez Staples Primary Care Provider: Gwendolyn Han Other Providers: Sidney Coats; Yaw Aldrich; Walter Matos Other Interventions: Discharge Summary Assessment (RN) Last Done: 05/01/24 14:06 Hospital Stay Data Consultations 04/16/24 17:00 ED Decision to Admit Stat 04/16/24 18:17 Consult Radiation Oncology Routine 04/16/24 19:21 Consult Oncology Routine Consult Palliative Care Routine Diagnostic Imagining Performed 04/16/24 12:19 CT head/brain wo con Stat IMPRESSION: 1. Interval placement of a right frontal ventriculostomy with decompression of the lateral and third ventricles. Slit-like ventricles raises the possibility of over shunting. 2. Mild progression of metastatic disease with increase in significant mass effect within the posterior fossa, as described above. Increased effacement of the fourth ventricle with possible mild inferior displacement of the cerebellar tonsils. 04/17/24 09:15 CT guide rad therapy head Routine Pending Results Patient Have Any Pending Studies at Discharge: No Discharge Instructions Given to Patient (Per Discharging Provider) You were admitted to [facility] from April 16 to 2024 due to metastatic cancer causing intractable headaches, nausea, vomiting. He was treated with brain radiation and dexamethasone. Will continue with dexamethasone 4 mg BID for 1 week, followed by 4 mg daily for 1 week. Continue [id number] MiraLAX +/- senna as needed for constipation. Continue ondansetron as needed for nausea. You have been prescribed morphine as needed for pain relief. Please follow-up with [facility] oncology and palliative care. Total Time Total Time Spent Total Time Spent (In Minutes): 35 Coding Level of Care Code 44514 INP/OBS DISCH >30 MIN Diagnoses Intractable headache R51.9 Breast cancer, stage 4 C50.919 Metastatic cancer to brain C79.31 Metastasis to bone C79.51 Intractable nausea and vomiting R11.2 PEELER OPERATOR (ventriculoperitoneal) shunt status Z98.2 Constipation K59.00
== END 2024-05-01 15:18 | disposition home or self-care (01) | DRG 948 ==
LOC: ED 09:59 → SUATTDRO 18:17 → EDINP 18:17 → 4W 04-17 00:08 → 3E 04-22 17:44
DX: Z51.5 Encounter for palliative care; Z17.0 Estrogen receptor positive status [ER+]; Z88.8 Allergy status to other drugs, medicaments and biological substances; C79.31 Secondary malignant neoplasm of brain; K59.00 Constipation, unspecified; G89.3 Neoplasm related pain (acute) (chronic); C79.51 Secondary malignant neoplasm of bone; D05.11 Intraductal carcinoma in situ of right breast; Z98.2 Presence of cerebrospinal fluid drainage device; M84.58XA Pathological fracture in neoplastic disease, other specified site, initial encounter for fracture; Z53.29 Procedure and treatment not carried out because of patient's decision for other reasons

== ENCOUNTER 2024-11-08 21:55 | Inpatient (IN) ==
--- NOTE | 2024-11-08 22:16 | Emergency Department Note ---
Impression & Plan Expressive aphasia, Stroke-like symptoms, Metastasis to brain, S/P MAINFRAME ARCHITECT shunt ED Provider Note NAME: GALI FLOWER AGE: 39 SEX: F : 1985 ARRIVES VIA: Ambulance INFORMANT: [Patient][family] ED PROVIDER(S): [Leopoldo Whitehead MD] CHIEF COMPLAINT: Stroke alert HISTORY OF PRESENT ILLNESS: The patient is a 39-year-old female presents to the ED as a stroke alert. Her last known well was around 2030, 1.5 hours ago. The patient was having a very difficult time getting out her words, sometimes, she had a word salad when she tried to talk. There was also a right facial droop. When EMS arrived, the word salad was still present but the facial droop had resolved. The patient did not notice any weakness or numbness in her arms or legs. There has been no headache or chest pain. She is not short of breath. She was having a typical day today before this began. Of note, patient does have metastatic cancer. The cancer has spread to her brain. She has undergone radiation in the past. She has a MAINFRAME ARCHITECT shunt. She is not on blood thinning agents. PMHx/PSHx/Social Hx: See Below PHYSICAL EXAM: GENERAL: Patient is in no acute distress. HEENT: No acute trauma, normocephalic atraumatic, mucous membranes moist, no nasal congestion. NECK: No stridor, no adenopathy, no meningismus, trachea is midline. LUNGS: Clear to auscultation bilaterally, no wheeze, no rhonchi, breath sounds equal. HEART: Without murmurs gallops or rubs, regular rate and rhythm. ABDOMEN: Soft, nontender, no peritonitis. EXTREMITIES: No cyanosis, full range of motion of all the joints without pain or difficulty. NEUROLOGIC: Awake. Follows commands. She does have a difficult time with her speech, she appears to have expressive aphasia. No extremity drift or cerebellar dysfunction. No facial droop. SKIN: No jaundice, no diaphoresis. DIFFERENTIAL DIAGNOSIS: Stroke, intracranial bleeding, brain metastases, electrolyte imbalance, dehydration, UTI, among others. EMERGENCY DEPARTMENT PROCEDURES: MEDICAL DECISION MAKING: There is no leukocytosis or concerning anemia. There is a normal platelet count. No coagulopathy. No renal failure or significant electrolyte abnormality. No concerning liver enzyme elevation. Cardiac enzyme testing x 1 is not consistent with acute cardiac injury. Brain CT shows brain metastases with edema in the area of the left parietal lobe. The patient did have a MAINFRAME ARCHITECT shunt in place. There was no midline shift. CTA of the head and neck was performed, there was no significant stenosis or clot. On exam, the patient appeared to have an expressive aphasia, she was not toxic or febrile. Patient received IV saline 500 cc. She was given IV Keppra 2000 mg. She was given IV Decadron. I did discuss the patient with the stroke neurologist from [place]. The patient is not a TNK candidate. Her presentation was felt secondary to her brain metastases and the swelling of the left parietal lobe. Seizure was a consideration. I did eventually speak to [facility] neurosurgery. The patient is not a neurosurgical candidate currently. She requires medical management of the parietal edema. I did speak with the patient and her significant other. I did speak with case management as well as the on-call [facility] hospitalist. The patient in short appears to be suffering from expressive aphasia as a result of her brain metastases and left parietal edema. For now, emergent transfer to [facility] [address] was not felt warranted/necessary. [facility] was willing to take the patient to their facility if things were to worsen. Prior/Outside records/notes reviewed: Today's EMS notes describing her presentation and transport to this hospital. Imaging/x-ray results per my interpretation: Chronic Medical/Social conditions affecting care: Metastatic cancer. Care/Management discussed with: [place] stroke neurologist-Dr. Youngblood. [facility] neurosurgery-Dr. Dowd. Case management and the on-call hospitalist. Level of care consideration(s): After review of the information above and other included data: --I believe the patient requires escalation of care to admission Critical Care Note: I have personally spent 46 minutes of critical care time in the direct management of this patient. This includes bedside care, interpretation of diagnostic studies, and testing, discussion with consultants, patient, and family members, and other required patient management activities. This 46 minutes is in excess of all separately billable procedures. DISPOSITION: Admission Past Med/Surg History Problem List (Updated 11/09/24 @ 00:27 by Leopoldo Whitehead MD) S/P MAINFRAME ARCHITECT shunt (Acute) Metastasis to brain (Acute) Stroke-like symptoms (Acute) Expressive aphasia (Acute) Medical History Brain metastases Social History Smoking Status: Never smoker Preferred Language: Cambodian Feels Safe at Home: Yes Results & Data (ED) Vital Signs Vital Signs - 24 hr 11/08/24 22:03 11/08/24 22:04 11/08/24 22:06 Temperature 36.6 C Temperature Source Oral Pulse Rate 71 62 Pulse Rate [Apical] Pulse Rate from SpO2 Sensor Respiratory Rate 16 Respiratory Effort / Characteristics Non-Labored Spontaneous Blood Pressure 100/78 100/78 Blood Pressure [Left Arm] Blood Pressure Mean 85 85 Blood Pressure Mean [Left Arm] Blood Pressure Position Lying Blood Pressure Position [Left Arm] Pulse Oximetry 99 Oxygen Delivery Method Room Air Sepsis Recent Fever Within 48 Hours No Sepsis New/Unexplained Change in Mental Status No Sepsis Action Taken by Nursing No Action Required 11/08/24 22:20 11/08/24 22:30 11/08/24 22:46 Temperature Temperature Source Pulse Rate 64 67 73 Pulse Rate [Apical] Pulse Rate from SpO2 Sensor Respiratory Rate 16 17 17 Respiratory Effort / Characteristics Blood Pressure 106/67 99/73 L 112/90 Blood Pressure [Left Arm] Blood Pressure Mean 83 81 96 Blood Pressure Mean [Left Arm] Blood Pressure Position Blood Pressure Position [Left Arm] Pulse Oximetry 99 99 98 Oxygen Delivery Method Room Air Room Air Room Air Sepsis Recent Fever Within 48 Hours Sepsis New/Unexplained Change in Mental Status Sepsis Action Taken by Nursing 11/08/24 23:04 11/08/24 23:15 11/08/24 23:30 Temperature Temperature Source Pulse Rate 62 64 Pulse Rate [Apical] 63 Pulse Rate from SpO2 Sensor 62 Respiratory Rate 18 14 16 Respiratory Effort / Characteristics Non-Labored Spontaneous Blood Pressure 88/62 L 89/63 L Blood Pressure [Left Arm] 92/65 L Blood Pressure Mean 70 70 Blood Pressure Mean [Left Arm] 74 Blood Pressure Position Blood Pressure Position [Left Arm] Lying Pulse Oximetry 97 97 98 Oxygen Delivery Method Room Air Room Air Sepsis Recent Fever Within 48 Hours Sepsis New/Unexplained Change in Mental Status Sepsis Action Taken by Nursing 11/08/24 23:45 11/09/24 00:03 Temperature Temperature Source Pulse Rate 66 62 Pulse Rate [Apical] Pulse Rate from SpO2 Sensor 64 Respiratory Rate 16 15 Respiratory Effort / Characteristics Blood Pressure 86/61 L 89/69 L Blood Pressure [Left Arm] Blood Pressure Mean 71 75 Blood Pressure Mean [Left Arm] Blood Pressure Position Blood Pressure Position [Left Arm] Pulse Oximetry 99 97 Oxygen Delivery Method Room Air Sepsis Recent Fever Within 48 Hours Sepsis New/Unexplained Change in Mental Status Sepsis Action Taken by [facility] Medications Current Medication List: was personally reviewed by me Laboratory Data Attestation: I reviewed the patient's lab results. 11/08/24 22:05 11/08/24 22:05 Lab Results 11/08/24 11/08/24 11/08/24 Range/Units 22:05 22:06 22:56 WBC 5.90 (4.8-10.8) K/ul RBC 4.78 (4.20-5.40) M/uL Hgb 14.2 (12.0-16.0) g/dl Hct 42.0 (37.0-47.0) % MCV 87.9 (80.0-100.0) fL MCH 29.7 (25.0-34.0) pg MCHC 33.8 (32.0-36.0) g/dL RDW Std Deviation 40.3 (36.4-46.3) fL RDW Coeff of Abigail 12.6 (11.5-14.5) % Plt Count 211 (130-400) K/uL MPV 9.1 L (9.4-12.4) fL Immature Gran % (Auto) 0.3 % Neut % (Auto) 69.2 % Lymph % (Auto) 21.9 % [place] % (Auto) 7.3 % Eos % (Auto) 1.0 % Baso % (Auto) 0.3 % Neut # (Auto) 4.08 (1.40-6.50) K/uL Lymph # (Auto) 1.29 (1.20-3.40) K/uL [place] # (Auto) 0.43 (0.11-0.59) K/uL Eos # (Auto) 0.06 (0.00-0.50) K/uL Baso # (Auto) 0.02 (0.00-0.20) K/uL Immature Gran # (Auto) 0.02 (0.01-0.20) K/uL PT Cancelled 10.9 INR Cancelled 1.0 APTT Cancelled 24 PTT Ratio Cancelled 0.9 Sodium 138 (136-145) mmol/L Potassium 4.0 (3.5-5.1) mmol/L Chloride 100 (98-107) mmol/L Carbon Dioxide 31 (21-32) mmol/L Anion Gap 7 (3-11) BUN 15 (6-23) mg/dl Creatinine 0.72 (0.6-1.2) mg/dl Est Cr Clr Drug Dosing 92.5 ml/min eGFR 107.66 BUN/Creatinine Ratio 20.8 H (10-20) Glucose 90 (70-99(Fasting)) mg/dl POC Glucose 67 L* (70-99) mg/dl Calcium 9.6 (8.6-10.3) mg/dl Magnesium 1.8 (1.7-2.4) mg/dl Total Bilirubin 0.5 (0.2-1.0) mg/dl AST 15 (13-39) U/L ALT 11 (7-52) U/L Alkaline Phosphatase 40 (34-104) U/L Troponin I High Sens 2.6 (0-14) pg/ml Total Protein 7.8 (6.0-8.3) gm/dl Albumin 4.9 (3.4-5.0) gm/dl Globulin 2.9 (2.5-4.0) gm/dl Albumin/Globulin Ratio 1.7 (0.9-2) Administered Medications Sodium Chloride (Nss) 500 mls @ 999 mls/hr IV .Q31M ONE Stop: 11/09/24 00:20 Last Admin: 11/09/24 00:17 Dose: 999 mls/hr Documented By: [facility] Discontinued Medications Dexamethasone Sodium Phosphate (DexamethasonePf 10 Mg/Ml Vial) 10 mg IV NOW ONE Stop: 11/08/24 22:27 Last Admin: 11/08/24 22:43 Dose: 10 mg Documented By: ADDIE Levetiracetam (Levetiracetam 500 Mg/5 Ml Vial) 2,000 mg IV NOW STA Stop: 11/08/24 22:27 Last Admin: 11/08/24 22:43 Dose: 2,000 mg Documented By: ADDIE Imaging Data Radiologist's Impression: Head CT 11/08/24 21:49 CR Exam(s): CT HEAD Without Contrast EXAM: CT Head Without Intravenous Contrast CLINICAL HISTORY: neuro deficit, acute stroke suspected. TECHNIQUE: Axial computed tomography images of the head/brain without intravenous contrast. CTDI is 46.15 mGy and DLP is 1123.77 mGy-cm. Automated exposure control was utilized for the study. A dose lowering technique was utilized adhering to the principles of ALARA. COMPARISON: No relevant prior studies available. FINDINGS: Brain: No intracranial hemorrhage. There are hypodense areas of presumed encephalomalacia involving the lateral left cerebellar hemisphere in the inferomedial right temporal lobe. There is a hypodense area involving the left parietal subcortical white matter with questionable regional mass effect and effacement of the cerebral sulci. Ventricles: No midline shift or ventriculomegaly. Bones/joints: Unremarkable. No acute fracture. Soft tissues: Unremarkable. Sinuses: Unremarkable as visualized. No acute sinusitis. Mastoid air cells: Unremarkable as visualized. No mastoid effusion. Tubes, lines and devices: A right frontal approach ventriculoperitoneal shunt is identified extending into the anterior 3rd ventricle. The foramen on [place]. IMPRESSION: 1. There is a hypodense area involving the left parietal subcortical white matter with questionable regional mass effect and effacement of the cerebral sulci. The appearance is atypical for encephalomalacia and is concerning for deep white matter edema. The cause is not clearly delineated on this noncontrast examination. No prior imaging available for comparison. Underlying mass lesion is not excluded. 2. No intracranial hemorrhage. No midline shift. 3. Presumed encephalomalacia involving the posteromedial right temporal lobe and lateral left cerebellar hemisphere. Communications: Call Doctor Stroke Electronically signed by: Alonso Portillo MD 11/08/24 22:41 PM Head CTA 11/08/24 21:49 CR Exam(s): CTA HEAD With Contrast IV Amt: 118ml optiray 320 EXAM: CT Angiography Head With Intravenous Contrast CLINICAL HISTORY: neuro deficit, acute stroke suspected. Additional history provided: The patient has metastatic breast carcinoma with previous [employer] metastasis. TECHNIQUE: Axial computed tomographic angiography images of the head with intravenous contrast. CTDI is 9.44 mGy and DLP is 330.94 mGy-cm. Automated exposure control was utilized for the study. A dose lowering technique was utilized adhering to the principles of ALARA. MIP reconstructed images were created and reviewed. CONTRAST: Patient received 118ml optiray 320 of IV contrast COMPARISON: Noncontrast examination performed earlier FINDINGS: Right internal carotid artery: No acute findings. Intracranial segment is patent with no significant stenosis. No aneurysm. Right anterior cerebral artery: Unremarkable. No occlusion or significant stenosis. No aneurysm. Right middle cerebral artery: Unremarkable. No occlusion or significant stenosis. No aneurysm. Right posterior cerebral artery: Unremarkable. No occlusion or significant stenosis. No aneurysm. Right vertebral artery: Unremarkable as visualized. Left internal carotid artery: No acute findings. Intracranial segment is patent with no significant stenosis. No aneurysm. Left anterior cerebral artery: Unremarkable. No occlusion or significant stenosis. No aneurysm. Left middle cerebral artery: Unremarkable. No occlusion or significant stenosis. No aneurysm. Left posterior cerebral artery: Unremarkable. No occlusion or significant stenosis. No aneurysm. Left vertebral artery: Unremarkable as visualized. Basilar artery: Unremarkable. No occlusion or significant stenosis. No aneurysm. Brain: There is abnormal enhancement along the margin of the left parietal cortex, measuring 2 x 1.5 x 1.8 cm in the region of the parietal deep white matter edema and regional mass effect. There is heterogeneous enhancement involving the medial aspect of the temporal lobes, measuring 2.1 x 1.5 x 1.4 cm. Nonspecific heterogeneous enhancement in the area of presumed encephalomalacia involving the left lateral cerebellar hemisphere. IMPRESSION: 1. There is abnormal enhancement along the margin of the left parietal cortex, measuring 2 x 1.5 x 1.8 cm in the region of the parietal deep white matter edema and regional mass effect. The primary consideration is recurrent [employer] metastasis. 2. There is heterogeneous enhancement involving the medial aspect of the temporal lobes, measuring 2.1 x 1.5 x 1.4 cm. An additional lesion in the right medial temporal lobe is suspected. The enhancement pattern in the lateral left cerebellar hemisphere is nonspecific. 3. Negative intracranial CTA examination. Communications: Call Doctor Stroke Electronically signed by: Alonso Portillo MD 11/08/24 22:48 PM Neck CTA 11/08/24 21:49 CR Exam(s): CTA NECK With Contrast IV Amt: 118ml optiray 320 EXAM: CT Angiography Neck With Intravenous Contrast CLINICAL HISTORY: neuro deficit, acute stroke suspected. TECHNIQUE: Routine carotid CT angiography protocol was performed with intravenous contrast. NASCET criteria using the distal ICAs for comparison were used for evaluation of stenoses. CTDI is 34.55 mGy and DLP is 343.4 mGy-cm. Automated exposure control was utilized for the study. A dose lowering technique was utilized adhering to the principles of ALARA. MIP reconstructed images were created and reviewed. CONTRAST: Patient received 118ml optiray 320 of IV contrast COMPARISON: None. FINDINGS: VASCULATURE: Right common carotid artery: Unremarkable. No occlusion or significant stenosis. No dissection. Right internal carotid artery: Unremarkable. Extracranial segment is patent with no occlusion or significant stenosis. No dissection. Right external carotid artery: Unremarkable. No occlusion. Right vertebral artery: Unremarkable. No occlusion or significant stenosis. No dissection. Left common carotid artery: Unremarkable. No occlusion or significant stenosis. No dissection. Left internal carotid artery: Unremarkable. Extracranial segment is patent with no occlusion or significant stenosis. No dissection. Left external carotid artery: Unremarkable. No occlusion. Left vertebral artery: Unremarkable. No occlusion or significant stenosis. No dissection. Brachiocephalic and subclavian arteries: There is a bovine configuration of the proximal great vessels. No significant ostial stenosis. Aorta: The aortic arch is only partially included. No dissection or aneurysm. NECK: Bones/joints: Unremarkable. No acute fracture. Soft tissues: Unremarkable. Lung apices: Clear. Tubes, lines and devices: A left internal jugular approach port a catheter is partially visualized in position. CAROTID STENOSIS REFERENCE USING NASCET CRITERIA: % ICA stenosis = (1 - narrowest ICA diameter/diameter of distal cervical ICA) x 100. Mild - <50% stenosis. Moderate - 50-69% stenosis. Severe - 70-94% stenosis. Near occlusion - 95-99% stenosis. Occluded - 100% stenosis. IMPRESSION: Negative cervical CTA examination. Communications: Call Doctor Stroke Electronically signed by: Alonso Portillo MD 11/08/24 22:51 PM Discharge Plan Visit Data Chief Complaint: Stroke Alert Stated Complaint: STROKE ALERT ED Provider: Leopoldo Whitehead Discharge Problem: Expressive aphasia, Stroke-like symptoms, Metastasis to brain, S/P MAINFRAME ARCHITECT shunt Patient Disposition: Admitted As Inpatient Condition: Serious Forms Stand Alone Forms: [facility] Referrals Referrals: PCP,NO [Primary Care Provider] -
[2024-11-08 22:24] LABS: Hematocrit (blood only) 42.0 % (37.0-47.0); Hemoglobin 14.2 g/dl (12.0-16.0); Immature Granulocytes # (auto) 0.02 K/uL (0.01-0.20); Immature Granulocytes % (auto) 0.3 %; Mean Corpuscular Hemoglobin 29.7 pg (25.0-34.0); Mean Corpuscular Volume 87.9 fL (80.0-100.0); Platelet Count 211 K/uL (130-400); RDW Standard Deviation 40.3 fL (36.4-46.3); Red Blood Count 4.78 M/uL (4.20-5.40); White Blood Count 5.90 K/ul (4.8-10.8)
[2024-11-08 22:41] LABS: Alanine Aminotransferase 11.0 U/L (7-52); Albumin Globulin Ratio 1.7 (0.9-2); Albumin Level 4.9 gm/dl (3.4-5.0); Alkaline Phosphatase 40.0 U/L (34-104); Anion Gap 7.0 (3-11); Bilirubin,Total 0.5 mg/dl (0.2-1.0); Blood Urea Nitrogen 15.0 mg/dl (6-23); Calcium 9.6 mg/dl (8.6-10.3); Carbon Dioxide 31.0 mmol/L (21-32); Chloride 100.0 mmol/L (98-107); Creatinine Clr Calc Pharmacy 92.5 ml/min; Globulin 2.9 gm/dl (2.5-4.0); Glucose 90.0 mg/dl (70-99(Fasting)); Magnesium 1.8 mg/dl (1.7-2.4); Potassium 4.0 mmol/L (3.5-5.1); Sodium 138.0 mmol/L (136-145); Total Protein 7.8 gm/dl (6.0-8.3)
--- NOTE | 2024-11-08 22:41 | CT Scan Report ---
Exam(s): CT HEAD Without Contrast EXAM: CT Head Without Intravenous Contrast CLINICAL HISTORY: neuro deficit, acute stroke suspected. TECHNIQUE: Axial computed tomography images of the head/brain without intravenous contrast. CTDI is 46.15 mGy and DLP is 1123.77 mGy-cm. Automated exposure control was utilized for the study. A dose lowering technique was utilized adhering to the principles of ALARA. COMPARISON: No relevant prior studies available. FINDINGS: Brain: No intracranial hemorrhage. There are hypodense areas of presumed encephalomalacia involving the lateral left cerebellar hemisphere in the inferomedial right temporal lobe. There is a hypodense area involving the left parietal subcortical white matter with questionable regional mass effect and effacement of the cerebral sulci. Ventricles: No midline shift or ventriculomegaly. Bones/joints: Unremarkable. No acute fracture. Soft tissues: Unremarkable. Sinuses: Unremarkable as visualized. No acute sinusitis. Mastoid air cells: Unremarkable as visualized. No mastoid effusion. Tubes, lines and devices: A right frontal approach ventriculoperitoneal shunt is identified extending into the anterior 3rd ventricle. The foramen on [place]. IMPRESSION: 1. There is a hypodense area involving the left parietal subcortical white matter with questionable regional mass effect and effacement of the cerebral sulci. The appearance is atypical for encephalomalacia and is concerning for deep white matter edema. The cause is not clearly delineated on this noncontrast examination. No prior imaging available for comparison. Underlying mass lesion is not excluded. 2. No intracranial hemorrhage. No midline shift. 3. Presumed encephalomalacia involving the posteromedial right temporal lobe and lateral left cerebellar hemisphere. Communications: Call Doctor Stroke Electronically signed by: Alonso Portillo MD 11/08/24 22:41 PM
[2024-11-08] MEDS: dexAMETHasone**PF** 10 MG/ML VIAL IV ONE (22:43)
--- NOTE | 2024-11-08 22:49 | CT Scan Report ---
Exam(s): CTA HEAD With Contrast IV Amt: 118ml optiray 320 EXAM: CT Angiography Head With Intravenous Contrast CLINICAL HISTORY: neuro deficit, acute stroke suspected. Additional history provided: The patient has metastatic breast carcinoma with previous [employer] metastasis. TECHNIQUE: Axial computed tomographic angiography images of the head with intravenous contrast. CTDI is 9.44 mGy and DLP is 330.94 mGy-cm. Automated exposure control was utilized for the study. A dose lowering technique was utilized adhering to the principles of ALARA. MIP reconstructed images were created and reviewed. CONTRAST: Patient received 118ml optiray 320 of IV contrast COMPARISON: Noncontrast examination performed earlier FINDINGS: Right internal carotid artery: No acute findings. Intracranial segment is patent with no significant stenosis. No aneurysm. Right anterior cerebral artery: Unremarkable. No occlusion or significant stenosis. No aneurysm. Right middle cerebral artery: Unremarkable. No occlusion or significant stenosis. No aneurysm. Right posterior cerebral artery: Unremarkable. No occlusion or significant stenosis. No aneurysm. Right vertebral artery: Unremarkable as visualized. Left internal carotid artery: No acute findings. Intracranial segment is patent with no significant stenosis. No aneurysm. Left anterior cerebral artery: Unremarkable. No occlusion or significant stenosis. No aneurysm. Left middle cerebral artery: Unremarkable. No occlusion or significant stenosis. No aneurysm. Left posterior cerebral artery: Unremarkable. No occlusion or significant stenosis. No aneurysm. Left vertebral artery: Unremarkable as visualized. Basilar artery: Unremarkable. No occlusion or significant stenosis. No aneurysm. Brain: There is abnormal enhancement along the margin of the left parietal cortex, measuring 2 x 1.5 x 1.8 cm in the region of the parietal deep white matter edema and regional mass effect. There is heterogeneous enhancement involving the medial aspect of the temporal lobes, measuring 2.1 x 1.5 x 1.4 cm. Nonspecific heterogeneous enhancement in the area of presumed encephalomalacia involving the left lateral cerebellar hemisphere. IMPRESSION: 1. There is abnormal enhancement along the margin of the left parietal cortex, measuring 2 x 1.5 x 1.8 cm in the region of the parietal deep white matter edema and regional mass effect. The primary consideration is recurrent [employer] metastasis. 2. There is heterogeneous enhancement involving the medial aspect of the temporal lobes, measuring 2.1 x 1.5 x 1.4 cm. An additional lesion in the right medial temporal lobe is suspected. The enhancement pattern in the lateral left cerebellar hemisphere is nonspecific. 3. Negative intracranial CTA examination. Communications: Call Doctor Stroke Electronically signed by: Alonso Portillo MD 11/08/24 22:48 PM
--- NOTE | 2024-11-08 22:52 | CT Scan Report ---
Exam(s): CTA NECK With Contrast IV Amt: 118ml optiray 320 EXAM: CT Angiography Neck With Intravenous Contrast CLINICAL HISTORY: neuro deficit, acute stroke suspected. TECHNIQUE: Routine carotid CT angiography protocol was performed with intravenous contrast. NASCET criteria using the distal ICAs for comparison were used for evaluation of stenoses. CTDI is 34.55 mGy and DLP is 343.4 mGy-cm. Automated exposure control was utilized for the study. A dose lowering technique was utilized adhering to the principles of ALARA. MIP reconstructed images were created and reviewed. CONTRAST: Patient received 118ml optiray 320 of IV contrast COMPARISON: None. FINDINGS: VASCULATURE: Right common carotid artery: Unremarkable. No occlusion or significant stenosis. No dissection. Right internal carotid artery: Unremarkable. Extracranial segment is patent with no occlusion or significant stenosis. No dissection. Right external carotid artery: Unremarkable. No occlusion. Right vertebral artery: Unremarkable. No occlusion or significant stenosis. No dissection. Left common carotid artery: Unremarkable. No occlusion or significant stenosis. No dissection. Left internal carotid artery: Unremarkable. Extracranial segment is patent with no occlusion or significant stenosis. No dissection. Left external carotid artery: Unremarkable. No occlusion. Left vertebral artery: Unremarkable. No occlusion or significant stenosis. No dissection. Brachiocephalic and subclavian arteries: There is a bovine configuration of the proximal great vessels. No significant ostial stenosis. Aorta: The aortic arch is only partially included. No dissection or aneurysm. NECK: Bones/joints: Unremarkable. No acute fracture. Soft tissues: Unremarkable. Lung apices: Clear. Tubes, lines and devices: A left internal jugular approach port a catheter is partially visualized in position. CAROTID STENOSIS REFERENCE USING NASCET CRITERIA: % ICA stenosis = (1 - narrowest ICA diameter/diameter of distal cervical ICA) x 100. Mild - <50% stenosis. Moderate - 50-69% stenosis. Severe - 70-94% stenosis. Near occlusion - 95-99% stenosis. Occluded - 100% stenosis. IMPRESSION: Negative cervical CTA examination. Communications: Call Doctor Stroke Electronically signed by: Alonso Portillo MD 11/08/24 22:51 PM
[2024-11-08 23:41] LABS: INR 1.0 (0.9-1.1); Partial Thromboplastin Time 24 Seconds (21-31); Prothrombin Time 10.9 Seconds (9.0-12.0)
[2024-11-09] MEDS: SODIUM CHLORIDE 0.9% 500 ML IV ONE (00:17)
--- NOTE | 2024-11-09 00:57 | History & Physical Report ---
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 The patient herself is not able to contribute to her HPI or review of systems. Her was present, but appeared to not be clear related to her previous medical history as well. The patient was brought to the emergency department after noted that around 830 this evening, her to have difficulty with speech, and confusion. She also had an initial right facial droop, which resolved spontaneously. She was brought to the emergency department via EMS as a stroke alert. CT scan of head showed a hypodense area involving the left parietal subcortical white matter with questionable regional mass effect and effacement of the cerebral sulci. Appearance is atypical for encephalomalacia and is concerning for deep white matter edema. The cause is not clearly delineated on this noncontrast examination. Underlying mass lesion is not excluded. Presumed encephalomalacia involving the posterior medial right temporal lobe and lateral left cerebellar hemisphere. CTA of the head showed an abnormal enhancement along the margin of the left parietal cortex, measuring 2 x 1.5 x 1.8 cm in the region of the parietal deep white matter edema and regional mass effect. 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 There is heterogeneous enhancement involving the medial aspect of the temporal lobes, measuring 2.1 x 1.5 x 1.4 cm. An additional lesion in the right medial temporal lobe is suspected. Enhancement pattern in the lateral left cerebellar hemisphere is nonspecific. Negative for intracranial CTA examination. CTA head and neck was negative. Per ED protocol, the case was run by [facility] stroke neurology, who reported that there was no intervention from a neurosurgical perspective that we should be performed, and the patient could be treated at [facility] with dexamethasone, and Keppra. Since patient has most of her care done through the [facility] system, and has had a VICE PRESIDENT DIGITAL STRATEGIST shunt placed at [facility] [place]surgery at [place] reports that the patient did not need to be transferred there, and that she could be treated at [facility]. The patient was given dexamethasone 10 mg IV, and Keppra 2000 mg IV and normal saline 500 mL bolus. [facility] Strokelike symptoms- Symptoms were that of expressive aphasia, transient right facial droop, and confusion. The expressive aphasia was the primary symptom that persisted to the emergency department. CT head, CTA head and neck as noted above Emergency department calls were made to [facility] and [facility] neurosurgery, who felt that patient did not require their services at this time. Medical records are through the [facility] system, and are not completely available at this time She did have a VICE PRESIDENT DIGITAL STRATEGIST shunt placed recently at [facility]. As per recommendation of neurosurgery, patient received dexamethasone 10 mg IV and Keppra 2000 mg IV loading dose Continue dexamethasone 8 mg IV every 6 hours Continue Keppra at 500 mg IV every 12 hours. Admit to the intensive care unit Will speak with her oncologist from [facility] Dr. Tavarez in the a.m. Obtaining information regarding VICE PRESIDENT DIGITAL STRATEGIST shunt, to determine safety to perform MRI brain in a.m. NSS + KCl 20 mEq in and 25 mL/h x 2 L Magnesium sulfate 1 g IV Zofran 4 mg IV every 6 hours as needed Pantoprazole 40 mg IV daily Acetaminophen 1 g IV every 8 hours as needed for pain or fever CBC with differential, chemistry profile, magnesium level, PT/INR/PTT in the a.m. History of Present Illness Chief Complaint: The patient was brought to the emergency department after noted that around 830 this evening, her to have difficulty with speech, and confusion. She also had an initial right facial droop, which resolved spontaneously. She was brought to the emergency department via EMS as a stroke alert. CT scan of head showed a hypodense area involving the left parietal subcortical white matter with questionable regional mass effect and effacement of the cerebral sulci. Appearance is atypical for encephalomalacia and is concerning for deep white matter edema. The cause is not clearly delineated on this noncontrast examination. Underlying mass lesion is not excluded. Presumed encephalomalacia involving the posterior medial right temporal lobe and lateral left cerebellar hemisphere. CTA of the head showed an abnormal enhancement along the margin of the left parietal cortex, measuring 2 x 1.5 x 1.8 cm in the region of the parietal deep white matter edema and regional mass effect. 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 There is heterogeneous enhancement involving the medial aspect of the temporal lobes, measuring 2.1 x 1.5 x 1.4 cm. An additional lesion in the right medial temporal lobe is suspected. Enhancement pattern in the lateral left cerebellar hemisphere is nonspecific. Negative for intracranial CTA examination. CTA head and neck was negative. Per ED protocol, the case was run by [facility] stroke neurology, who reported that there was no intervention from a neurosurgical perspective that we should be performed, and the patient could be treated at [facility] with dexamethasone, and Keppra. Since patient has most of her care done through the [facility] system, and has had a VICE PRESIDENT DIGITAL STRATEGIST shunt placed at [facility] [place], [place] then [place]. Neurosurgery at [place] reports that the patient did not need to be transferred there, and that she could be treated at [facility]. 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 The patient herself is not able to contribute to her HPI or review of systems. Her was present, but appeared to not be clear related to her previous medical history as well. The patient was brought to the emergency department after noted that around 830 this evening, her to have difficulty with speech, and confusion. She also had an initial right facial droop, which resolved spontaneously. She was bro ught to the emergency department via EMS as a stroke alert. CT scan of head showed a hypodense area involving the left parietal subcortical white matter with questionable regional mass effect and effacement of the cerebral sulci. Appearance is atypical for encephalomalacia and is concerning for deep white matter edema. The cause is not clearly delineated on this noncontrast examination. Underlying mass lesion is not excluded. Presumed encephalomalacia involving the posterior medial right temporal lobe and lateral left cerebellar hemisphere. CTA of the head showed an abnormal enhancement along the margin of the left parietal cortex, measuring 2 x 1.5 x 1.8 cm in the region of the parietal deep white matter edema and regional mass effect. 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 There is heterogeneous enhancement involving the medial aspect of the temporal lobes, measuring 2.1 x 1.5 x 1.4 cm. An additional lesion in the right medial temporal lobe is suspected. Enhancement pattern in the lateral left cerebellar hemisphere is nonspecific. Negative for intracranial CTA examination. CTA head and neck was negative. Per ED protocol, the case was run by [facility] stroke neurology, who reported that there was no intervention from a neurosurgical perspective that we should be performed, and the patient could be treated at [facility] with dexamethasone, and Keppra. Since patient has most of her care done through the [facility] system, and has had a VICE PRESIDENT DIGITAL STRATEGIST shunt placed at [facility] in [place], [place] was then called. Neurosurgery at [place] reports that the patient did not need to be transferred there, and that she could be treated at [facility]. 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 Her attempted to provide much information as he could. Physical Exam Physical Exam: The patient is able to be aroused with some effort, well developed and well nourished, normocephalic and atraumatic, lying in bed and in no acute distress. HEENT--PERRL, EOMI, mucous membranes and oropharynx mildly dry. Neck--supple. No JVD. No bruits. Thyroid normal, trachea midline, no adenopathy. Heart--normal S1 and S2. No murmurs, rubs or gallops. Lungs--clear bilaterally, no respiratory distress, no accessory muscle use. Abdomen--normal bowel sounds and soft. Nontender. Nondistended, no hernias or masses, no organomegaly. Extremities--no cyanosis or clubbing. No edema. There are good distal pulses b/l. Dermatologic--normal skin turgor, normal color, no abnormal lymph nodes, no rash. Neurologic--limited exam Rheumatologic--limited exam Psychiatric--lethargic Results & Data Results & Data Vital Signs (Past 12 Hours) Vital Signs Temp Pulse Pulse Resp BP BP Pulse Ox 11/09/24 00:03 62 15 89/69 L 97 11/08/24 23:45 66 16 86/61 L 99 11/08/24 23:30 64 16 89/63 L 98 11/08/24 23:15 62 14 88/62 L 97 11/08/24 23:04 63 18 92/65 L 97 11/08/24 22:46 73 17 112/90 98 11/08/24 22:30 67 17 99/73 L 99 11/08/24 22:20 64 16 106/67 99 11/08/24 22:06 100/78 11/08/24 22:04 36.6 C 62 16 100/78 99 11/08/24 22:03 71 O2 Del Method 11/09/24 00:03 Room Air 11/08/24 23:45 11/08/24 23:30 11/08/24 23:15 Room Air 11/08/24 23:04 Room Air 11/08/24 22:46 Room Air 11/08/24 22:30 Room Air 11/08/24 22:20 Room Air 11/08/24 22:06 11/08/24 22:04 Room Air 11/08/24 22:03 Laboratory Results Laboratory Results WBC 5.90 K/ul (4.8-10.8) 11/08/24 22:05 RBC 4.78 M/uL (4.20-5.40) 11/08/24 22:05 Hgb 14.2 g/dl (12.0-16.0) 11/08/24 22:05 Hct 42.0 % (37.0-47.0) 11/08/24 22:05 MCV 87.9 fL (80.0-100.0) 11/08/24 22:05 MCH 29.7 pg (25.0-34.0) 11/08/24 22:05 MCHC 33.8 g/dL (32.0-36.0) 11/08/24 22:05 RDW Std Deviation 40.3 fL (36.4-46.3) 11/08/24 22:05 RDW Coeff of Abigail 12.6 % (11.5-14.5) 11/08/24 22:05 Plt Count 211 K/uL (130-400) 11/08/24 22:05 MPV 9.1 fL (9.4-12.4) L 11/08/24 22:05 Immature Gran % (Auto) 0.3 % 11/08/24 22:05 Neut % (Auto) 69.2 % 11/08/24 22:05 Lymph % (Auto) 21.9 % 11/08/24 22:05 Maverick % (Auto) 7.3 % 11/08/24 22:05 Eos % (Auto) 1.0 % 11/08/24 22:05 Baso % (Auto) 0.3 % 11/08/24 22:05 Neut # (Auto) 4.08 K/uL (1.40-6.50) 11/08/24 22:05 Lymph # (Auto) 1.29 K/uL (1.20-3.40) 11/08/24 22:05 Maverick # (Auto) 0.43 K/uL (0.11-0.59) 11/08/24 22:05 Eos # (Auto) 0.06 K/uL (0.00-0.50) 11/08/24 22:05 Baso # (Auto) 0.02 K/uL (0.00-0.20) 11/08/24 22:05 Immature Gran # (Auto) 0.02 K/uL (0.01-0.20) 11/08/24 22:05 PT 10.9 Seconds (9.0-12.0) 11/08/24 22:56 INR 1.0 (0.9-1.1) 11/08/24 22:56 APTT 24 Seconds (21-31) 11/08/24 22:56 PTT Ratio 0.9 11/08/24 22:56 Sodium 138 mmol/L (136-145) 11/08/24 22:05 Potassium 4.0 mmol/L (3.5-5.1) 11/08/24 22:05 Chloride 100 mmol/L (98-107) 11/08/24 22:05 Carbon Dioxide 31 mmol/L (21-32) 11/08/24 22:05 Anion Gap 7 (3-11) 11/08/24 22:05 BUN 15 mg/dl (6-23) 11/08/24 22:05 Creatinine 0.72 mg/dl (0.6-1.2) 11/08/24 22:05 Est Cr Clr Drug Dosing 92.5 ml/min 11/08/24 22:05 eGFR 107.66 11/08/24 22:05 BUN/Creatinine Ratio 20.8 (10-20) H 11/08/24 22:05 Glucose 90 mg/dl (70-99(Fasting)) 11/08/24 22:05 POC Glucose 67 mg/dl (70-99) L* 11/08/24 22:06 Calcium 9.6 mg/dl (8.6-10.3) 11/08/24 22:05 Magnesium 1.8 mg/dl (1.7-2.4) 11/08/24 22:05 Total Bilirubin 0.5 mg/dl (0.2-1.0) 11/08/24 22:05 AST 15 U/L (13-39) 11/08/24 22:05 ALT 11 U/L (7-52) 11/08/24 22:05 Alkaline Phosphatase 40 U/L (34-104) 11/08/24 22:05 Troponin I High Sens 2.6 pg/ml (0-14) 11/08/24 22:05 Total Protein 7.8 gm/dl (6.0-8.3) 11/08/24 22:05 Albumin 4.9 gm/dl (3.4-5.0) 11/08/24 22:05 Globulin 2.9 gm/dl (2.5-4.0) 11/08/24 22:05 Albumin/Globulin Ratio 1.7 (0.9-2) 11/08/24 22:[address] 11/08/24 21:49 CR Exam(s): CT HEAD Without Contrast EXAM: CT Head Without Intravenous Contrast CLINICAL HISTORY: neuro deficit, acute stroke suspected. TECHNIQUE: Axial computed tomography images of the head/brain without intravenous contrast. CTDI is 46.15 mGy and DLP is 1123.77 mGy-cm. Automated exposure control was utilized for the study. A dose lowering technique was utilized adhering to the principles of ALARA. COMPARISON: No relevant prior studies available. FINDINGS: Brain: No intracranial hemorrhage. There are hypodense areas of presumed encephalomalacia involving the lateral left cerebellar hemisphere in the inferomedial right temporal lobe. There is a hypodense area involving the left parietal subcortical white matter with questionable regional mass effect and effacement of the cerebral sulci. Ventricles: No midline shift or ventriculomegaly. Bones/joints: Unremarkable. No acute fracture. Soft tissues: Unremarkable. Sinuses: Unremarkable as visualized. No acute sinusitis. Mastoid air cells: Unremarkable as visualized. No mastoid effusion. Tubes, lines and devices: A right frontal approach ventriculoperitoneal shunt is identified extending into the anterior 3rd ventricle. The foramen on [place]. IMPRESSION: 1. There is a hypodense area involving the left parietal subcortical white matter with questionable regional mass effect and effacement of the cerebral sulci. The appearance is atypical for encephalomalacia and is concerning for deep white matter edema. The cause is not clearly delineated on this noncontrast examination. No prior imaging available for comparison. Underlying mass lesion is not excluded. 2. No intracranial hemorrhage. No midline shift. 3. Presumed encephalomalacia involving the posteromedial right temporal lobe and lateral left cerebellar hemisphere. Communications: Call Doctor Stroke Electronically signed by: Alonso Portillo MD 11/08/24 22:41 PM Head CTA 11/08/24 21:49 CR Exam(s): CTA HEAD With Contrast IV Amt: 118ml optiray 320 EXAM: CT Angiography Head With Intravenous Contrast CLINICAL HISTORY: neuro deficit, acute stroke suspected. 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 TECHNIQUE: Axial computed tomographic angiography images of the head with intravenous contrast. CTDI is 9.44 mGy and DLP is 330.94 mGy-cm. Automated exposure control was utilized for the study. A dose lowering technique was utilized adhering to the principles of ALARA. MIP reconstructed images were created and reviewed. CONTRAST: Patient received 118ml optiray 320 of IV contrast COMPARISON: Noncontrast examination performed earlier FINDINGS: Right internal carotid artery: No acute findings. Intracranial segment is patent with no significant stenosis. No aneurysm. Right anterior cerebral artery: Unremarkable. No occlusion or significant stenosis. No aneurysm. Right middle cerebral artery: Unremarkable. No occlusion or significant stenosis. No aneurysm. Right posterior cerebral artery: Unremarkable. No occlusion or significant stenosis. No aneurysm. Right vertebral artery: Unremarkable as visualized. Left internal carotid artery: No acute findings. Intracranial segment is patent with no significant stenosis. No aneurysm. Left anterior cerebral artery: Unremarkable. No occlusion or significant stenosis. No aneurysm. Left middle cerebral artery: Unremarkable. No occlusion or significant stenosis. No aneurysm. Left posterior cerebral artery: Unremarkable. No occlusion or significant stenosis. No aneurysm. Left vertebral artery: Unremarkable as visualized. Basilar artery: Unremarkable. No occlusion or significant stenosis. No aneurysm. Brain: There is abnormal enhancement along the margin of the left parietal cortex, measuring 2 x 1.5 x 1.8 cm in the region of the parietal deep white matter edema and regional mass effect. There is heterogeneous enhancement involving the medial aspect of the temporal lobes, measuring 2.1 x 1.5 x 1.4 cm. Nonspecific heterogeneous enhancement in the area of presumed encephalomalacia involving the left lateral cerebellar hemisphere. IMPRESSION: 1. There is abnormal enhancement along the margin of the left parietal cortex, measuring 2 x 1.5 x 1.8 cm in the region of the parietal deep white matter edema and regional mass effect. 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 2. There is heterogeneous enhancement involving the medial aspect of the temporal lobes, measuring 2.1 x 1.5 x 1.4 cm. An additional lesion in the right medial temporal lobe is suspected. The enhancement pattern in the lateral left cerebellar hemisphere is nonspecific. 3. Negative intracranial CTA examination. Communications: Call Doctor Stroke Electronically signed by: Alonso Portillo MD 11/08/24 22:48 PM Neck CTA 11/08/24 21:49 CR Exam(s): CTA NECK With Contrast IV Amt: 118ml optiray 320 EXAM: CT Angiography Neck With Intravenous Contrast CLINICAL HISTORY: neuro deficit, acute stroke suspected. TECHNIQUE: Routine carotid CT angiography protocol was performed with intravenous contrast. NASCET criteria using the distal ICAs for comparison were used for evaluation of stenoses. CTDI is 34.55 mGy and DLP is 343.4 mGy-cm. Automated exposure control was utilized for the study. A dose lowering technique was utilized adhering to the principles of ALARA. MIP reconstructed images were created and reviewed. CONTRAST: Patient received 118ml optiray 320 of IV contrast COMPARISON: None. FINDINGS: VASCULATURE: Right common carotid artery: Unremarkable. No occlusion or significant stenosis. No dissection. Right internal carotid artery: Unremarkable. Extracranial segment is patent with no occlusion or significant stenosis. No dissection. Right external carotid artery: Unremarkable. No occlusion. Right vertebral artery: Unremarkable. No occlusion or significant stenosis. No dissection. Left common carotid artery: Unremarkable. No occlusion or significant stenosis. No dissection. Left internal carotid artery: Unremarkable. Extracranial segment is patent with no occlusion or significant stenosis. No dissection. Left external carotid artery: Unremarkable. No occlusion. Left vertebral artery: Unremarkable. No occlusion or significant stenosis. No dissection. Brachiocephalic and subclavian arteries: There is a bovine configuration of the proximal great vessels. No significant ostial stenosis. Aorta: The aortic arch is only partially included. No dissection or aneurysm. NECK: Bones/joints: Unremarkable. No acute fracture. Soft tissues: Unremarkable. Lung apices: Clear. Tubes, lines and devices: A left internal jugular approach port a catheter is partially visualized in position. CAROTID STENOSIS REFERENCE USING NASCET CRITERIA: % ICA stenosis = (1 - narrowest ICA diameter/diameter of distal cervical ICA) x 100. Mild - <50% stenosis. Moderate - 50-69% stenosis. Severe - 70-94% stenosis. Near occlusion - 95-99% stenosis. Occluded - 100% stenosis. IMPRESSION: Negative cervical CTA examination. 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
--- NOTE | 2024-11-09 01:32 | Critical Care Consultation ---
<Statement entered by Hung Fofana MD - 11/09/24 08:54> I, Hung Fofana MD, supervised and reviewed the physical exam, assessment, plan, and management as documented by the Advanced Care Provider for this patient encounter. I discussed the case with them, confirmed the findings, and I concur with the proposed plan of care. I was available for consultation throughout the encounter and provided guidance as needed. Date of Consultation November 09, 2024 Assessment & Plan (1) Stroke-like symptoms: (2) Metastasis to brain: Plan Reason Critically Ill: Stroke like symptoms in setting of brain metastasis - to ICU for frequent neurological examination and monitoring of symptoms. Neuro - Aphasia, facial droop, brain metastasis with areas of edema, CAM ICU: [facility] - At this time DDX would include - CVA, TIA, Seizure, or abnormalities from i ncreasing edema around metastasis, venous thrombosis, or meningeal spread - Patient is with DIRECTOR PHYSICAL shunt in place and no mention of increase in ventricular size, CTA of head without hemorrhage, aneurysm, or occlusion or LVO - For edema and effects on surrounding tissue- will continue with Decadron 8mg IV q6 hours- can decrease to 4mg q6 or daily pending further discussion with specialists and patient symptoms. - For possibility of seizure- although no loss of consciousness, patient does not remember anything prior to the ER- continue with Keppra- if symptoms re-occur or seizure noted- would recommend evaluation with continuous EEG- currently patient is back to baseline - Continue Keppra - 1000mg BID - Without fever - could consider obtaining sample from her DIRECTOR PHYSICAL shunt if infective cause becomes more evident - MRI with and without contrast would be helpful in evaluating for CVA or any meningeal involvement- although as above ventricles appear to be at normal - DIRECTOR PHYSICAL implant information for MRI compatibility- obtained from [email or web address] on hard chart for MRI review- however patient recent MRI in [facility] last week - Will need to discuss with her Oncologist in the morning for options and treatment- and possibility for transfer to tertiary center for further support- DR Sakshi GRACIA ([phone]) - Reportedly declined biopsy of mets so unsure of primary pathology - Reports no new medications initiated recently. Cardiac - No acute needs - follow hemodynamics and response to neurological evaluations- crystalloids if needed vasopressors if needed Respiratory - no acute needs GI - No acute needs - NPO for until decision for any procedural needs RENAL/LYTES - - no acute needs - - no acute needs ENDO - - no acute needs, follow glucose levels with steroids HEME - no acute needs ID - no concerns at this time for infective causes- follow closely- as above consider DIRECTOR PHYSICAL sample if indicated LINES/IV ACCESS - PIV DVT PROPHYLAXIS - SCDS, DISPO: ICU until neurological status appropriate I have personally spent 45 minutes of critical care time in the direct management of this patient. This is a life/limb threatening event. This includes time spent evaluating patient, direct bedside care, chart review, placing orders, interpretation of diagnostic studies, discussion with consultants, patient, and family members, as well as other required patient management activities. This time is exclusive of all separately billable procedures, and teaching time and separate from and in addition to any other critical care service time. Thank you for allowing us to participate in the care of this patient. Please refer to my attending physician's documentation for any further recommendations. History of Present Illness Reason for Consultation: stroke like symptoms in setting of brain metastasis Requesting Physician: Nick Trevizo Attending Physician: Nick Trevizo MD History of Present Illness 39 YOF with majority of records in [employer] system, currently not available for review. Patient is known with breast cancer and is s/p treatment for that, she was noted to have headaches and imaging in February 05 that was concerning for brain metastasis. reports that she went to [facility] at that time, had Ventricular drain placed as well as sampling of her fluid done at that time- he reports it as benign, and does not believe she had the areas of concern biopsied. He reports that she did receive 10 treatments of brain radiation, and was on steroids at that time. Steroids were discontinued after follow on treatment. He reports that she went to [facility] last week and had MRI obtained for following of DIRECTOR PHYSICAL shunt, and was informed that the masses and surrounding edema had been decreasing. Today the patient was noted to have difficulty speaking with words not making sense, or ability to form sentences, it was also reported that she had right facial droop as well, he reports patient began to cry as she could not communicate and he called 911. Patient was stroke alerted on the way to the hospital, she underwent CVA evaluation in the ER with telestr robb to [facility] [place]. [place] head, CTA of head and neck was performed. Imaging was noted for left parietal area with possible regional mass effect and effacement of sulci, and concern for white matter edema, no hemorrhage was noted, clarified on the CTA of the head with 2.1.5x1.8 with "recurrent" PIPE STEM SAWYER metastasis as well as areas of the temporal lobes and medial temporal lobe. There was no stenosis, or aneurysm interpreted. SHe was deemed non thrombolytic candidate for the masses and DIRECTOR PHYSICAL shunt, with recommendations of Decadron an Keppra administration from the teleneurology. ER physician reportedly further discussed case with [facility] neurosurgeon team, that reported no neurosurgical intervention required. Patient was evaluated in the ER in room B1, where she is sleeping, but easily ar ousable, information obtained from initially, patient then was awoken and joined conversation. She is currently with normal speech and no focal deficits. She currently feels that she is back to her baseline. She reports also that she is not on any other maintenence medications for her cancer, and that they were to meet with her Oncologist- Dr. Tavarez next week to discuss further treatments or options. She will be brought to the ICU for continued monitoring of her neurological symptoms, we will continue Decadron 4-8mg every 8 hours. Should have discussion with Oncologist over weekend for further options. Patient History Medical History (Updated 11/09/24 @ 02:44 by DIONI Saldana) Breast cancer Brain metastases Surgical History (Updated 11/09/24 @ 02:39 by DIONI Saldana) S/P DIRECTOR PHYSICAL shunt Social History Smoking Status: Never smoker Preferred Language: Kyrgyz Feels Safe at Home: Yes Review of Systems Review of Systems: REVIEW OF SYSTEMS: Constitutional: No fever, sweats or chills Eyes: No diplopia, no worsening or blurred vision ENT: normal hearing, no trouble swallowing Respiratory: No cough, sputum, dyspnea at rest or on exertion Cardiovascular: No chest pain, tightness or palpitations Abdomen: No pain, nausea, vomiting, diarrhea or constipation Musculoskeletal: No joint pain, calf pain, swelling Neurologic: (+) difficulty speaking (now resolved), No weakness, numbness/tingling, or balance problems Psychiatric: No anxiety or depression Skin: No rash or itch Physical Exam Physical Exam: PHYSICAL EXAM: General: easily awakens, alert, no apparent distress Neuro: AOx3 , speech clear and appropriate, strength equal bilaterally, sensation intact. No facial droop noted Chest: equal rise and fall of the chest, no accessory muscle use, Clear to auscultation, on room air, Cardiac: Regular rate and rhythm, telemetry reviewed- NSR, skin warm dry, cap refill <3 seconds, peripheral pulses +2 no JVD, no murmur, GI: NABS x 4 quadrants, soft, nontender to palpation, no rebound, guarding or tenderness : Spontaneously voiding, Extremities: Normal inspection, no peripheral edema or erythema, calfs nontender to palpation Psych: Normal mood and affect Skin: no rash or erythema Results & Data Results & Data Vital Signs (Past 12 Hours) Vital Signs Temp Pulse Pulse Resp BP BP Pulse Ox 11/09/24 00:03 62 15 89/69 L 97 11/08/24 23:45 66 16 86/61 L 99 11/08/24 23:30 64 16 89/63 L 98 11/08/24 23:15 62 14 88/62 L 97 11/08/24 23:04 63 18 92/65 L 97 11/08/24 22:46 73 17 112/90 98 11/08/24 22:30 67 17 99/73 L 99 11/08/24 22:20 64 16 106/67 99 11/08/24 22:06 100/78 11/08/24 22:04 36.6 C 62 16 100/78 99 11/08/24 22:03 71 O2 Del Method 11/09/24 00:03 Room Air 11/08/24 23:45 11/08/24 23:30 11/08/24 23:15 Room Air 11/08/24 23:04 Room Air 11/08/24 22:46 Room Air 11/08/24 22:30 Room Air 11/08/24 22:20 Room Air 11/08/24 22:06 11/08/24 22:04 Room Air 11/08/24 22:03 Laboratory Results Abnormal lab results 11/08/24 11/08/24 Range/Units 22:05 22:06 MPV 9.1 L (9.4-12.4) fL BUN/Creatinine Ratio 20.8 H (10-20) POC Glucose 67 L* (70-99) mg/dl Diagnostic Findings Head CT 11/08/24 21:49 CR Exam(s): CT HEAD Without Contrast EXAM: CT Head Without Intravenous Contrast CLINICAL HISTORY: neuro deficit, acute stroke suspected. TECHNIQUE: Axial computed tomography images of the head/brain without intravenous contrast. CTDI is 46.15 mGy and DLP is 1123.77 mGy-cm. Automated exposure control was utilized for the study. A dose lowering technique was utilized adhering to the principles of ALARA. COMPARISON: No relevant prior studies available. FINDINGS: Brain: No intracranial hemorrhage. There are hypodense areas of presumed encephalomalacia involving the lateral left cerebellar hemisphere in the inferomedial right temporal lobe. There is a hypodense area involving the left parietal subcortical white matter with questionable regional mass effect and effacement of the cerebral sulci. Ventricles: No midline shift or ventriculomegaly. Bones/joints: Unremarkable. No acute fracture. Soft tissues: Unremarkable. Sinuses: Unremarkable as visualized. No acute sinusitis. Mastoid air cells: Unremarkable as visualized. No mastoid effusion. Tubes, lines and devices: A right frontal approach ventriculoperitoneal shunt is identified extending into the anterior 3rd ventricle. The foramen on [place]. IMPRESSION: 1. There is a hypodense area involving the left parietal subcortical white matter with questionable regional mass effect and effacement of the cerebral sulci. The appearance is atypical for encephalomalacia and is concerning for deep white matter edema. The cause is not clearly delineated on this noncontrast examination. No prior imaging available for comparison. Underlying mass lesion is not excluded. 2. No intracranial hemorrhage. No midline shift. 3. Presumed encephalomalacia involving the posteromedial right temporal lobe and lateral left cerebellar hemisphere. Communications: Call Doctor Stroke Electronically signed by: Alonso Portillo MD 11/08/24 22:41 PM Head CTA 11/08/24 21:49 CR Exam(s): CTA HEAD With Contrast IV Amt: 118ml optiray 320 EXAM: CT Angiography Head With Intravenous Contrast CLINICAL HISTORY: neuro deficit, acute stroke suspected. Additional history provided: The patient has metastatic breast carcinoma with previous PIPE STEM SAWYER metastasis. TECHNIQUE: Axial computed tomographic angiography images of the head with intravenous contrast. CTDI is 9.44 mGy and DLP is 330.94 mGy-cm. Automated exposure control was utilized for the study. A dose lowering technique was utilized adhering to the principles of ALARA. MIP reconstructed images were created and reviewed. CONTRAST: Patient received 118ml optiray 320 of IV contrast COMPARISON: Noncontrast examination performed earlier FINDINGS: Right internal carotid artery: No acute findings. Intracranial segment is patent with no significant stenosis. No aneurysm. Right anterior cerebral artery: Unremarkable. No occlusion or significant stenosis. No aneurysm. Right middle cerebral artery: Unremarkable. No occlusion or significant stenosis. No aneurysm. Right posterior cerebral artery: Unremarkable. No occlusion or significant stenosis. No aneurysm. Right vertebral artery: Unremarkable as visualized. Left internal carotid artery: No acute findings. Intracranial segment is patent with no significant stenosis. No aneurysm. Left anterior cerebral artery: Unremarkable. No occlusion or significant stenosis. No aneurysm. Left middle cerebral artery: Unremarkable. No occlusion or significant stenosis. No aneurysm. Left posterior cerebral artery: Unremarkable. No occlusion or significant stenosis. No aneurysm. Left vertebral artery: Unremarkable as visualized. Basilar artery: Unremarkable. No occlusion or significant stenosis. No aneurysm. Brain: There is abnormal enhancement along the margin of the left parietal cortex, measuring 2 x 1.5 x 1.8 cm in the region of the parietal deep white matter edema and regional mass effect. There is heterogeneous enhancement involving the medial aspect of the temporal lobes, measuring 2.1 x 1.5 x 1.4 cm. Nonspecific heterogeneous enhancement in the area of presumed encephalomalacia involving the left lateral cerebellar hemisphere. IMPRESSION: 1. There is abnormal enhancement along the margin of the left parietal cortex, measuring 2 x 1.5 x 1.8 cm in the region of the parietal deep white matter edema and regional mass effect. The primary consideration is recurrent PIPE STEM SAWYER metastasis. 2. There is heterogeneous enhancement involving the medial aspect of the temporal lobes, measuring 2.1 x 1.5 x 1.4 cm. An additional lesion in the right medial temporal lobe is suspected. The enhancement pattern in the lateral left cerebellar hemisphere is nonspecific. 3. Negative intracranial CTA examination. Communications: Call Doctor Stroke Electronically signed by: Alonso Portillo MD 11/08/24 22:48 PM Neck CTA 11/08/24 21:49 CR Exam(s): CTA NECK With Contrast IV Amt: 118ml optiray 320 EXAM: CT Angiography Neck With Intravenous Contrast CLINICAL HISTORY: neuro deficit, acute stroke suspected. TECHNIQUE: Routine carotid CT angiography protocol was performed with intravenous contrast. NASCET criteria using the distal ICAs for comparison were used for evaluation of stenoses. CTDI is 34.55 mGy and DLP is 343.4 mGy-cm. Automated exposure control was utilized for the study. A dose lowering technique was utilized adhering to the principles of ALARA. MIP reconstructed images were created and reviewed. CONTRAST: Patient received 118ml optiray 320 of IV contrast COMPARISON: None. FINDINGS: VASCULATURE: Right common carotid artery: Unremarkable. No occlusion or significant stenosis. No dissection. Right internal carotid artery: Unremarkable. Extracranial segment is patent with no occlusion or significant stenosis. No dissection. Right external carotid artery: Unremarkable. No occlusion. Right vertebral artery: Unremarkable. No occlusion or significant stenosis. No dissection. Left common carotid artery: Unremarkable. No occlusion or significant stenosis. No dissection. Left internal carotid artery: Unremarkable. Extracranial segment is patent with no occlusion or significant stenosis. No dissection. Left external carotid artery: Unremarkable. No occlusion. Left vertebral artery: Unremarkable. No occlusion or significant stenosis. No dissection. Brachiocephalic and subclavian arteries: There is a bovine configuration of the proximal great vessels. No significant ostial stenosis. Aorta: The aortic arch is only partially included. No dissection or aneurysm. NECK: Bones/joints: Unremarkable. No acute fracture. Soft tissues: Unremarkable. Lung apices: Clear. Tubes, lines and devices: A left internal jugular approach port a catheter is partially visualized in position. CAROTID STENOSIS REFERENCE USING NASCET CRITERIA: % ICA stenosis = (1 - narrowest ICA diameter/diameter of distal cervical ICA) x 100. Mild - <50% stenosis. Moderate - 50-69% stenosis. Severe - 70-94% stenosis. Near occlusion - 95-99% stenosis. Occluded - 100% stenosis. IMPRESSION: Negative cervical CTA examination. Communications: Call Doctor Stroke Electronically signed by: Alonso Portillo MD 11/08/24 22:51 PM Medications Administered Active Medications Acetaminophen (Acetaminophen 1000 Mg/100 Ml Iv) 1,000 mg IV Q8H PRN PRN Reason: Pain or Fever Stop: 11/12/24 02:11 Sodium Chloride (Nss) 1,000 mls @ 125 mls/hr IV .Q8H KRISTY Stop: 11/09/24 16:59 Last Admin: 11/09/24 02:38 Dose: 125 mls/hr Magnesium Sulfate/Dextrose (Magnesium Sulfate / D5w) 1 gm in 100 mls @ 50 mls/hr IV ONE ONE Stop: 11/09/24 02:50 Last Admin: 11/09/24 02:38 Dose: 50 mls/hr Pantoprazole Sodium (Protonix) 40 mg in 10 mls @ 5 mls/min IV BID KRISTY Stop: 12/09/24 08:59 Dexamethasone 6 mg/ Syringe 1.5 mls @ 1 mls/min IV Q6H KRISTY Stop: 12/09/24 04:59 Levetiracetam (Levetiracetam 500 Mg/5 Ml Vial) 500 mg IV Q24H KRISTY Stop: 12/09/24 06:59 Miscellaneous (Icu Protocol For Hyperglycemia) 1 each N/A Q6 KRISTY Stop: 11/11/24 05:59 Ondansetron HCl (Ondansetron Inj 2 Mg/Ml 2 Ml Vial) 4 mg IV Q6H PRN PRN Reason: NAUSEA/VOMITING Stop: 12/09/24 02:11 Coding Level of Care Code 88473 CRITICAL CARE 1ST 30-74M Diagnoses Stroke-like symptoms R29.90 Metastasis to brain C79.31
[2024-11-09] MEDS ORDERED: ACETAMINOPHEN 1000 MG/100 ML IV IV PRN (02:12)
[2024-11-09] MEDS ORDERED: ONDANSETRON INJ 2 MG/ML 2 ML VIAL IV PRN (02:12)
[2024-11-09] MEDS: MAGNESIUM SULFATE / D5W 1 GM/100 ML BAG IV ONE (02:38)
[2024-11-09] MEDS: SODIUM CHLORIDE 0.9% 1,000 ML IV SCH (02:38)
[2024-11-09 03:48] VITALS: TEMP 97.7
--- NOTE | 2024-11-09 04:43 | Billing Data ---
Date of Service November 09, 2024 Coding Level of Care Code 12867 CRITICAL CARE
[2024-11-09] MEDS ORDERED: dexAMETHasone 6 MG in SYRINGE 0 ML IV SCH (05:00)
[2024-11-09 05:24] LABS: Hematocrit (blood only) 37.5 % (37.0-47.0); Hemoglobin 12.8 g/dl (12.0-16.0); Immature Granulocytes # (auto) 0.02 K/uL (0.01-0.20); Immature Granulocytes % (auto) 0.3 %; Mean Corpuscular Hemoglobin 29.7 pg (25.0-34.0); Mean Corpuscular Volume 87.0 fL (80.0-100.0); Platelet Count 196 K/uL (130-400); RDW Standard Deviation 39.4 fL (36.4-46.3); Red Blood Count 4.31 M/uL (4.20-5.40); White Blood Count 7.50 K/ul (4.8-10.8)
[2024-11-09] MEDS: dexAMETHasone 8 MG in SYRINGE 0 ML IV SCH (05:26)
[2024-11-09 05:42] LABS: Alanine Aminotransferase 9.0 U/L (7-52); Albumin Globulin Ratio 1.7 (0.9-2); Albumin Level 4.1 gm/dl (3.4-5.0); Alkaline Phosphatase 35.0 U/L (34-104); Anion Gap 6.0 (3-11); Bilirubin,Total 0.5 mg/dl (0.2-1.0); Blood Urea Nitrogen 12.0 mg/dl (6-23); Calcium 8.4 mg/dl (8.6-10.3); Carbon Dioxide 25.0 mmol/L (21-32); Chloride 105.0 mmol/L (98-107); Creatinine Clr Calc Pharmacy 117.7 ml/min; Globulin 2.4 gm/dl (2.5-4.0); Glucose 147.0 mg/dl (70-99(Fasting)); Potassium 3.9 mmol/L (3.5-5.1); Sodium 136.0 mmol/L (136-145); Total Protein 6.5 gm/dl (6.0-8.3)
[2024-11-09 05:56] LABS: INR 1.0 (0.9-1.1); Prothrombin Time 10.9 Seconds (9.0-12.0)
--- NOTE | 2024-11-09 06:49 | Hospitalist Progress Note ---
Date of Service November 09, 2024 Assessment & Plan Admission and Anticipated Discharge Date Admission Date: November 09, 2024 Results & Data Results & Data Vital Signs (Past 12 Hours) Vital Signs Temp Pulse Pulse Resp BP BP Pulse Ox 11/09/24 06:00 66 16 89/58 L 95 11/09/24 05:00 68 15 96/71 L 97 11/09/24 04:00 64 14 97/62 L 95 11/09/24 02:12 36.5 C 74 16 106/76 96 11/09/24 02:12 74 11/09/24 02:11 36.5 C 74 16 106/76 96 11/09/24 02:00 58 L 18 102/81 100 11/09/24 01:00 61 15 93/65 L 95 11/09/24 01:00 11/09/24 01:00 36.5 C 74 16 106/76 96 11/09/24 00:15 36.5 C 74 15 106/76 95 11/09/24 00:03 62 15 89/69 L 97 11/08/24 23:45 66 16 86/61 L 99 11/08/24 23:30 64 16 89/63 L 98 11/08/24 23:15 62 14 88/62 L 97 11/08/24 23:04 63 18 92/65 L 97 11/08/24 22:46 73 17 112/90 98 11/08/24 22:30 67 17 99/73 L 99 11/08/24 22:20 64 16 106/67 99 11/08/24 22:06 100/78 11/08/24 22:04 36.6 C 62 16 100/78 99 11/08/24 22:03 71 O2 Del Method 11/09/24 06:00 Room Air 11/09/24 05:00 Room Air 11/09/24 04:00 Room Air 11/09/24 02:12 Room Air 11/09/24 02:12 11/09/24 02:11 Room Air 11/09/24 02:00 Room Air 11/09/24 01:00 11/09/24 01:00 Room Air 11/09/24 01:00 Room Air 11/09/24 00:15 Room Air 11/09/24 00:03 Room Air 11/08/24 23:45 11/08/24 23:30 11/08/24 23:15 Room Air 11/08/24 23:04 Room Air 11/08/24 22:46 Room Air 11/08/24 22:30 Room Air 11/08/24 22:20 Room Air 11/08/24 22:06 11/08/24 22:04 Room Air 11/08/24 22:03 PG Care Time/CCT Total # of Minutes Spent Total Time Spent with Patient: Total time spent is greater than 50% in coordination of care (as documented) at patient's floor/unit and/or counseling patient: Coding
[2024-11-09] MEDS: PANTOprazole 40 MG/10 ML SYR IV SCH (08:59)
--- NOTE | 2024-11-09 10:00 | XRay Report ---
EXAM: Radiograph of the Chest 1 View INDICATION: Transfer TECHNIQUE: Frontal view of the chest. COMPARISON: No relevant prior studies available. FINDINGS: Lungs and pleural spaces: No consolidation or pulmonary edema. No pleural effusion or pneumothorax. Heart: Shape and configuration within normal limits allowing for technique. Mediastinum: Normal contour. Bones/joints: No fracture, erosion or dislocation. Soft tissues: No abnormality noted. No radiopaque foreign body noted. Tubes, lines and devices: Right internal jugular central venous catheter tip in the mid superior vena cava. Left internal jugular central venous port terminates mid to distal SVC. Upper abdomen: No abnormality noted. IMPRESSION: 1. No acute cardiopulmonary disease. 2. Lines and tubes as above. ACT 112: N/A Electronically signed by Lynne Vizcarra 11-09-2024 10:00 AM
--- NOTE | 2024-11-09 10:52 | CT Scan Report ---
EXAM: CT Head Without Intravenous Contrast INDICATION: Assess interval change TECHNIQUE: Axial computed tomography images of the head/brain without intravenous contrast. Sagittal and/or coronal reformats are provided. Sagittal and coronal reformatted images were created and reviewed. This CT exam was performed using one or more of the following dose reduction techniques: automated exposure control, adjustment of the mA and/or kV according to patient size, and/or use of iterative reconstruction technique. COMPARISON: 11/08/2024 FINDINGS: Limitations: None. Brain and extra-axial spaces: Stable multifocal bilateral edema most prominent in the left frontal parietal lobes and cerebellum. Underlying mass is less conspicuous in the absence of contrast. Stable right ventricular shunt. Stable ventricular size. No midline shift. No hemorrhage. No significant white matter disease. Bones/joints: No acute changes. Soft tissues: No significant abnormality noted. Vasculature: No acute abnormality noted. Sinuses: No layering fluid in the visualized portions of the paranasal sinuses. Mastoid air cells: No mastoid effusion. Orbits: No significant abnormality noted. IMPRESSION: Stable multifocal bilateral edema without hemorrhage or shift. ACT 112: N/A Electronically signed by Lynne Vizcarra 11-09-2024 11:12 AM
[2024-11-09 12:21] VITALS: BP 101/69; PULSE 69; RESP 16; O2SAT 97
--- NOTE | 2024-11-09 14:57 | Discharge Summary ---
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 On the morning of my initial evaluation the patient did have persistent neurologic deficits including expressive aphasia, mild right-sided facial droop; given the medical complexity of her case, the inability to obtain an MRI without further neurosurgical evaluation post imaging given the presence of SURGICAL INSTRUMENT REPAIR SPECIALIST shunt, the majority the patient's care being coordinated at an external hospital system, and the risk of progression of her condition that would require emergent transfer if it were to occur a transfer to tertiary care center was initiated in the morning of 11/09. The patient's case was discussed with Dr. Camacho,, the [facility] system triage physician for transfers; after discussion with him, he had further discussion with [facility] neurology, oncology, and neurologic ICU who accepted the patient for transfer to their neuro ICU under Dr. Jimenez. In discussion of the patient's transfer there was a recent MRI and PET scan obtained which revealed left and right cerebellar, right temporal, and left and right occipital metastatic disease; the CTA head obtained 11/08 does reveal left parietal and left temporal metastatic disease, which presumably are new from these previous images only obtained 11 and 12 days prior; serial CT head without contrast was obtained which did not reveal significant progression of the patient's cerebral edema, though they were administered intravenous fluids for maintenance given they were n.p.o. in anticipation of possible procedural intervention. The patient's case was discussed in detail at bedside with the patient's spouse to discuss the risks and benefits of transfer; after multiple discussions exceeding 60 minutes in duration, they were agreeable to transfer to [facility]. Admission HPI Per Admitting Provider The patient is a 39-year-old female with a past medical history including metastatic breast cancer to brain. The patient herself is not able to contribute to her HPI or review of systems. Her was present, but appeared to not be clear related to her previous medical history as well. The patient was brought to the emergency department after noted that around 830 this evening, her to have difficulty with speech, and confusion. She also had an initial right facial droop, which resolved spontaneously. She was brought to the emergency department via EMS as a stroke alert. CT scan of head showed a hypodense area involving the left parietal subcortical white matter with questionable regional mass effect and effacement of the cerebral sulci. Appearance is atypical for encephalomalacia and is concerning for deep white matter edema. The cause is not clearly delineated on this noncontrast examination. Underlying mass lesion is not excluded. Presumed encephalomalacia involving the posterior medial right temporal lobe and lateral left cerebellar hemisphere. CTA of the head showed an abnormal enhancement along the margin of the left parietal cortex, measuring 2 x 1.5 x 1.8 cm in the region of the parietal deep white matter edema and regional mass effect. The primary consideration is recurrent AMMONIA DISTILLER metastases. There is heterogeneous enhancement involving the medial aspect of the temporal lobes, measuring 2.1 x 1.5 x 1.4 cm. An additional lesion in the right medial temporal lobe is suspected. Enhancement pattern in the lateral left cerebellar hemisphere is nonspecific. Negative for intracranial CTA examination. CTA head and neck was negative. Per ED protocol, the case was run by [facility] stroke neurology, who reported that there was no intervention from a neurosurgical perspective that we should be performed, and the patient could be treated at [facility] with dexamethasone, and Keppra. Since patient has most of her care done through the [facility], and has had a SURGICAL INSTRUMENT REPAIR SPECIALIST shunt placed at [facility] in [place] then called. Neurosurgery at [place] reports that the patient did not need to be transferred there, and that she could be treated at [facility]. Discharge Exam General: Adult female in no acute distress Vital Signs: Reviewed, asymptomatically hypotensive with MAP sustained greater than 60 mmHg HEENT: Pupils sluggish but symmetrically reactive to light; extraocular motion intact Pulmonary: Symmetric chest wall excursion without restriction; clear to auscultation bilaterally Cardiovascular: Regular rate and rhythm without murmurs, rubs, or gallops; S1 and S2 normal; right radial pulse 2+ Neurologic: Cranial nerves II through , VIII through XII intact; left cranial nerve VII intact; right cranial nerve VII with diminished strength evidenced by asymmetric smile, flattened nasolabial fold; bilateral upper and lower extremity strength -4/5; upper and lower extremity sensation intact to pinprick; [id number] and finger-nose without evidence of ataxia; speech was not slurred however there is obvious frustration on the patient's part with difficulty finding words; no evidence of difficulty with receptive speech Discharge Plan Discharge Items Patient Disposition: Transfer Acute Care Hospital Reason For Visit: SEIZURES, BRAIN METS WITH EDEMA Discharge Diagnosis: Suspected breast cancer metastases to multiple cerebral lobes with focal neurologic deficits concerning for CVA Condition on Discharge: Serious Activity: As commented below Activity Comment: Please follow recommendations provided by your care team at [facility] Non-emergency contact: Primary Care Provider and Oncologist Call non-emergency contact if: you have any medication questions and your symptoms worsen Follow-up/Referrals: PCP,NO [Primary Care Provider] - Diet: Regular Fluids: 2000ml (8 cups) Addtl Attending Provider Instructions: You were admitted to the [facility] due to Sudden onset focal neurologic deficits including difficulty with speech, as well as a right sided facial droop, subsequently complicated by a generalized seizure. Due to the complexity of your medical conditions, the inability of this facility to provide full care given your current medical conditions to rule out other acute pathologies including stroke given the presence of your SURGICAL INSTRUMENT REPAIR SPECIALIST shunt, we pursued transfer to [facility] who has accepted your transfer to a neurologic intensive care unit for further care. Pending Studies at Discharge: No Stand-Alone Forms: My [facility] Skilled Items Patient informed of condition?: Yes DNR: No Discharge Level of Care: Other Communicable Disease: No Discharge Prognosis: Stable Lines: None Urinary Catheter: No Medications and DC Order Discharge Orders: Discharge Order (Routine); Ordered 11/09/24 Ordered By: Epi Gardiner Admission Data Admit Date/Time: 11/09/24 00:56 Attending Provider: Epi Gardiner Admit Provider: Nick Trevizo Primary Care Provider: PCP,NO Other Providers: Nick Trevizo; Hung Fofana Hospital Stay Data Consultations 11/08/24 23:06 ED Decision to Admit Stat 11/09/24 02:12 Consult Community Relations Officer Routine Diagnostic Imagining Performed 11/08/24 21:49 CT angio head w con Stat CT angio neck with con Stat CT head/brain wo con Stat 11/09/24 09:01 CT head/brain wo con Urgent Pending Results Patient Have Any Pending Studies at Discharge: No Discharge Instructions Given to Patient (Per Discharging Provider) You were admitted to the [facility] due to Sudden onset focal neurologic deficits including difficulty with speech, as well as a right sided facial droop, subsequently complicated by a generalized seizure. Due to the complexity of your medical conditions, the inability of this facility to provide full care given your current medical conditions to rule out other acute pathologies including stroke given the presence of your SURGICAL INSTRUMENT REPAIR SPECIALIST shunt, we pursued transfer to [facility] who has accepted your transfer to a neurologic intensive care unit for further care. 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
== END 2024-11-09 14:10 | disposition short-term general hospital (02) | DRG 81 ==
LOC: ED 21:55 → SUATTDRO 11-09 00:56 → 1E 11-09 00:56 → MERGE 11-09 00:56 → 1E 11-09 02:00

== ENCOUNTER 2024-12-29 14:14 | Inpatient (IN) ==
[2024-12-29 15:05] LABS: Hematocrit (blood only) 38.3 % (37.0-47.0); Hemoglobin 13.3 g/dL (12.0-16.0); Immature Granulocytes # (auto) 0.01 K/uL (0.01-0.20); Immature Granulocytes % (auto) 0.2 %; Mean Corpuscular Hemoglobin 30.6 pg (25.0-34.0); Mean Corpuscular Volume 88.2 fL (80.0-100.0); Platelet Count 204 K/uL (130-400); RDW Standard Deviation 40.8 fL (36.4-46.3); Red Blood Count 4.34 M/uL (4.20-5.40); White Blood Count 4.48 K/ul (4.8-10.8)
[2024-12-29 15:32] LABS: Alanine Aminotransferase 10.0 U/L (7-52); Albumin Globulin Ratio 1.3 (0.9-2); Albumin Level 4.0 gm/dl (3.4-5.0); Alkaline Phosphatase 39.0 U/L (34-104); Anion Gap 5.0 (3-11); Bilirubin,Total 0.5 mg/dl (0.2-1.0); Blood Urea Nitrogen 13.0 mg/dl (6-23); Calcium 9.4 mg/dl (8.6-10.3); Carbon Dioxide 31.0 mmol/L (21-32); Chloride 102.0 mmol/L (98-107); Creatinine Clr Calc Pharmacy 141.4 ml/min; Globulin 3.0 gm/dl (2.5-4.0); Glucose 92.0 mg/dl (70-99(Fasting)); Potassium 4.1 mmol/L (3.5-5.1); Sodium 138.0 mmol/L (136-145); Total Protein 7.0 gm/dl (6.0-8.3)
[2024-12-29] MEDS: OPTIRAY 320 125ml IV ONE (16:19)
--- NOTE | 2024-12-29 16:43 | CT Scan Report ---
Head CT without contrast CT angiogram of the neck CT angiogram of the brain with contrast Provided History: Seizure Comparison: None Technique: HEAD CT: Using multidetector thin collimation helical acquisition technique, axial, coronal and sagittal CT images from the skull base to the vertex were obtained without intravenous contrast. HEAD and NECK CTA: During rapid bolus intravenous injection of nonionic contrast material, axial images were obtained using thin collimation multidetector helical technique from the base of the neck through the of vertex of the head. This CT angiogram data was reconstructed at thin intervals with mild overlap. 3D reconstructions were obtained. The axial source images, multiplanar reformations, 3D reconstructions in both maximum intensity projection display and volume rendered models were reviewed. Dose reduction techniques were achieved by using automatic exposure control and/or adjustment of mA and/or kV according to patient size and/or use of iterative reconstruction technique. Findings: Head CT: Oivedo/white matter differentiation in both cerebral hemispheres is preserved. Similar small appearance of the ventricles with stable right frontal approach ventriculostomy, with catheter tip near the foramen of [place]. Redemonstrated multifocal areas of edema in the brain related to known metastases. This is increased in the left frontal parietal, right cerebellar, and right temporal regions since prior. No midline shift. Head CTA demonstrates no aneurysm or stenosis of the major intracranial arteries. Neck CTA demonstrates no stenosis of the major cervical arteries. The origins of the great vessels from the aortic arch are patent. No mass is noted within the visualized portions of the cervical soft tissues or lung apices. Left chest wall port with catheter tip extending into the left brachiocephalic vein. Impression: 1. Head CTA demonstrates no aneurysm or stenosis of the major intracranial arteries, 2. Neck CTA demonstrates no stenosis of the major cervical arteries. 3. Multifocal areas of edema in the brain have increased, relating to known metastatic disease. Similar small size of the ventricles with stable ventriculostomy in place. Electronically signed by Artem Henry 12-29-2024 4:42 PM
--- NOTE | 2024-12-29 17:21 | Emergency Department Note ---
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 Patient reportedly had a 30 to 40-minute seizure as per . He called EMS and when he has arrived, they gave her 2 mg of IV Ativan. This stopped her seizure. She had a right focal seizure across her face. Is unable to talk during this. She has had previous seizures before and was transferred to an outside hospital. She had been started on Keppra but the patient stopped this. She has not had any significant fevers, chills, nausea or vomiting recently. She has been weak/sleepy for the past 2 or 3 days. ROS: Unable to obtain due to lethargy PHYSICAL EXAMINATION: General: resting comfortably in no acute distress Head: Normocephalic and atraumatic Eyes: Normal inspection, extraocular muscles intact Ear, nose, throat: Normal external exam Neck: Normal range of motion Respiratory: lungs clear to auscultation bilaterally Cardiovascular: Regular rate/rhythm, no murmur GI: soft, nontender, no guarding or rebound Extremities: nontender, moves all extremities Neuro: Asleep but arousable, right-sided facial paralysis, moves all extremities equally with 5/5 strength, follow commands Skin: Warm, dry, and intact MEDICAL DECISION MAKING: This is a 39-year-old female with 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 Patient currently postictal. Patient is had right- sided facial paralysis, consider Luis Felipe's paralysis. Will CT imaging to assess for stroke however low concern for acute CVA. Consider hemorrhagic conversion of mets versus worsening edema. Patient given 40 milligrams per kilogram Keppra load at this time. - Bloodwork is reviewed showing no significant leukocytosis, anemia, electrolyte or creatinine abnormality - CT imaging reveals intact shunt with increasing edema from known metastases -Upon reassessment, patient still fairly sleepy but arousable. She has resolved facial paralysis on the right side. Now symmetric and equal patient follows commands easily but does fall back asleep. - Discussed with [facility] neurology, Dr. Key, who recommends Decadron. He does state that patient could be made to this hospital for observation and Decadron tapering oncology. He is comfortable as inpatient consult - Care discussed with resident physician under Dr. Crowder Differential diagnosis: CVA, hemorrhage, edema, seizure, status epilepticus Independent History obtained from: , sister Diagnostics interpreted by me: ECG: ECG independently interpreted by me with normal sinus rhythm, rate of 87, normal NV, normal QRS, normal QTc, no ST segment elevations consistent with STEMI criteria Cardiac Monitoring: An order was placed for continuous cardiac monitoring. The monitor shows a rate of 65 sinus rhythm. 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 status Intractable nausea and vomiting Intractable headache Metastasis to bone Breast cancer, stage 4 History of invasive ductal carcinoma of 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 ASCUS with positive high risk HPV Right knee pain Cheilosis Osteolytic lesion due to metastasis Metastatic breast cancer (Chronic) Anemia (Acute) Medical History Encounter for pre-operative examination Acute hyponatremia Acute shoulder pain Surgical History History of brain shunt Port-A-Cath in place history Leg fracture Ovarian cyst History of nasal surgery Family History Uncle Myocardial infarction Cancer Heart disease Denies family history of Ovarian cancer Prostate cancer Breast cancer Colorectal cancer Social History (System 11/11/24 @ 08:05 by Janina Reyna) Smoking Status: Never smoker Hx Alcohol Use: No Hx Substance Use: No Preferred Language: Belarusian Communication Ability: Effective Visual Impairment: No Limitations Hearing Ability: Normal Machinery Mechanic Required: No Beliefs That Will Affect Care: None, Temple Temple Beliefs: Diet Christian restrictions. Comment entered and Cultural Cultural Beliefs: Christian, at side, No male care givers. marital status: Current Living Situation: Spouse current occupational status: student How many Children do You have: 0 Feels Safe at Home: Yes during the past year weight has: remained stable Assistive Devices: None Allergies Allergies Allergy/AdvReac Type Severity Reaction Status Date / Time heparin Allergy Unknown PT REFUSES Verified 12/29/24 16:37 PORK [employer]ODU[employer] pork derived (porcine) Allergy Unknown CONGREGATIONAL Verified 12/29/24 16:37 [facility] Home Meds Home Medications Medication Instructions Recorded Confirmed acetaminophen 325 mg tablet 325 mg PO Q4H PRN Pain 04/16/24 12/29/24 cholecalciferol (vitamin D3) 50 2,000 unit PO DAILY 04/16/24 12/29/24 mcg (2,000 unit) tablet (Vitamin D3) ibuprofen 200 mg tablet (Advil) 200 mg PO DIRECTED PRN Pain 04/16/24 12/29/24 calcium carbonate (Calcium 600) 600 mg PO DAILY 12/29/24 12/29/24 Results & Data (ED) Vital Signs Vital Signs - 24 hr 12/29/24 14:31 12/29/24 14:31 12/29/24 14:31 Temperature 36.8 C Temperature Source Oral Pulse Rate 84 Pulse Rate [Apical] 84 Pulse Rhythm Regular Pulse Rhythm [Apical] Regular Pulse Strength Normal Pulse Strength [Apical] Normal Respiratory Rate 15 15 Respiratory Effort / Characteristics Non-Labored Spontaneous Non-Labored Spontaneous Respiratory Depth Normal Normal Respiratory Pattern Regular Regular Blood Pressure 106/73 Blood Pressure [Right Arm] 106/73 Blood Pressure Mean 84 Blood Pressure Mean [Right Arm] 84 Blood Pressure Position Sitting Blood Pressure Position [Right Arm] Sitting Pulse Oximetry 98 98 98 Oxygen Delivery Method Room Air Room Air Room Air Sepsis Recent Fever Within 48 Hours No Sepsis New/Unexplained Change in Mental Status Yes Sepsis Action Taken by Nursing No Action Required 12/29/24 14:45 12/29/24 15:00 12/29/24 15:21 Temperature Temperature Source Pulse Rate 70 76 63 Pulse Rate [Apical] Pulse Rhythm Pulse Rhythm [Apical] Pulse Strength Pulse Strength [Apical] Respiratory Rate 22 16 Respiratory Effort / Characteristics Respiratory Depth Respiratory Pattern Blood Pressure 114/85 99/72 L Blood Pressure [Right Arm] Blood Pressure Mean 94 81 Blood Pressure Mean [Right Arm] Blood Pressure Position Blood Pressure Position [Right Arm] Pulse Oximetry 99 97 Oxygen Delivery Method Room Air Room Air Sepsis Recent Fever Within 48 Hours Sepsis New/Unexplained Change in Mental Status Sepsis Action Taken by Nursing 12/29/24 16:00 12/29/24 16:12 12/29/24 16:30 Temperature Temperature Source Pulse Rate 62 66 67 Pulse Rate [Apical] Pulse Rhythm Pulse Rhythm [Apical] Pulse Strength Pulse Strength [Apical] Respiratory Rate 15 15 16 Respiratory Effort / Characteristics Respiratory Depth Respiratory Pattern Blood Pressure 108/75 108/75 112/80 Blood Pressure [Right Arm] Blood Pressure Mean 86 86 90 Blood Pressure Mean [Right Arm] Blood Pressure Position Blood Pressure Position [Right Arm] Pulse Oximetry 100 100 98 Oxygen Delivery Method Room Air Room Air Room Air Sepsis Recent Fever Within 48 Hours Sepsis New/Unexplained Change in Mental Status Sepsis Action Taken by Nursing 12/29/24 17:00 12/29/24 17:30 Temperature Temperature Source Pulse Rate 59 L 65 Pulse Rate [Apical] Pulse Rhythm Pulse Rhythm [Apical] Pulse Strength Pulse Strength [Apical] Respiratory Rate 15 20 Respiratory Effort / Characteristics Respiratory Depth Respiratory Pattern Blood Pressure 95/72 L 109/79 Blood Pressure [Right Arm] Blood Pressure Mean 79 89 Blood Pressure Mean [Right Arm] Blood Pressure Position Blood Pressure Position [Right Arm] Pulse Oximetry 97 96 Oxygen Delivery Method Room Air Room Air Sepsis Recent Fever Within 48 Hours Sepsis New/Unexplained Change in Mental Status Sepsis Action Taken by Nursing Laboratory Data 12/29/24 14:40 12/29/24 14:40 Lab Results 12/29/24 12/29/24 Range/Units 14:40 15:01 WBC 4.48 L (4.8-10.8) K/ul RBC 4.34 (4.20-5.40) M/uL Hgb 13.3 (12.0-16.0) g/dL Hct 38.3 (37.0-47.0) % MCV 88.2 (80.0-100.0) fL MCH 30.6 (25.0-34.0) pg MCHC 34.7 (32.0-36.0) g/dL RDW Std Deviation 40.8 (36.4-46.3) fL RDW Coeff of Abigail 12.7 (11.5-14.5) % Plt Count 204 (130-400) K/uL MPV 9.0 L (9.4-12.4) fL Immature Gran % (Auto) 0.2 % Neut % (Auto) 62.4 % Lymph % (Auto) 25.9 % [place] % (Auto) 10.0 % Eos % (Auto) 1.1 % Baso % (Auto) 0.4 % Neut # (Auto) 2.79 (1.40-6.50) K/uL Lymph # (Auto) 1.16 L (1.20-3.40) K/uL [place] # (Auto) 0.45 (0.11-0.59) K/uL Eos # (Auto) 0.05 (0.00-0.50) K/uL Baso # (Auto) 0.02 (0.00-0.20) K/uL Immature Gran # (Auto) 0.01 (0.01-0.20) K/uL Sodium 138 (136-145) mmol/L Potassium 4.1 (3.5-5.1) mmol/L Chloride 102 (98-107) mmol/L Carbon Dioxide 31 (21-32) mmol/L Anion Gap 5 (3-11) BUN 13 (6-23) mg/dl Creatinine 0.49 L (0.6-1.2) mg/dl Est Cr Clr Drug Dosing 141.4 ml/min eGFR 121.35 BUN/Creatinine Ratio 26.5 H (10-20) Glucose 92 (70-99(Fasting)) mg/dl Lactate 1.1 (0.4-2.0) mmol/L Calcium 9.4 (8.6-10.3) mg/dl Total Bilirubin 0.5 (0.2-1.0) mg/dl AST 16 (13-39) U/L ALT 10 (7-52) U/L Alkaline Phosphatase 39 (34-104) U/L Total Protein 7.0 (6.0-8.3) gm/dl Albumin 4.0 (3.4-5.0) gm/dl Globulin 3.0 (2.5-4.0) gm/dl Albumin/Globulin Ratio 1.3 (0.9-2) Administered Medications Discontinued Medications Dexamethasone Sodium Phosphate (DexamethasonePf 10 Mg/Ml Vial) 10 mg IV NOW ONE Stop: 12/29/24 17:13 Last Admin: 12/29/24 17:34 Dose: 10 mg Documented By: ALDO Sodium Chloride (Nss) 500 mls @ 999 mls/hr IV .Q31M ONE Stop: 12/29/24 18:03 Last Admin: 12/29/24 17:34 Dose: 999 mls/hr Documented By: ALDO Ioversol (Optiray 320 125ml) 119 ml IV ONCE ONE Stop: 12/29/24 16:20 Last Admin: 12/29/24 16:19 Dose: 119 ml Documented By: YUNIORK Levetiracetam (Levetiracetam 500 Mg/5 Ml Vial) 2,650 mg 40 mg/kg (2650 mg) IV NOW STA Stop: 12/29/24 15:43 Last Admin: 12/29/24 16:04 Dose: 2,650 mg Documented By: ALDO Imaging Data Radiologist's Impression: Head CT 12/29/24 14:[address] without contrast CT angiogram of the neck CT angiogram of the brain with contrast Provided History: Seizure Comparison: None Technique: HEAD CT: Using multidetector thin collimation helical acquisition technique, axial, coronal and sagittal CT images from the skull base to the vertex were obtained without intravenous contrast. HEAD and NECK CTA: During rapid bolus intravenous injection of nonionic contrast material, axial images were obtained using thin collimation multidetector helical technique from the base of the neck through the of vertex of the head. This CT angiogram data was reconstructed at thin intervals with mild overlap. 3D reconstructions were obtained. The axial source images, multiplanar reformations, 3D reconstructions in both maximum intensity projection display and volume rendered models were reviewed. Dose reduction techniques were achieved by using automatic exposure control and/or adjustment of mA and/or kV according to patient size and/or use of iterative reconstruction technique. Findings: Head CT: [place]/white matter differentiation in both cerebral hemispheres is preserved. Similar small appearance of the ventricles with stable right frontal approach ventriculostomy, with catheter tip near the foramen of [place]. Redemonstrated multifocal areas of edema in the brain related to known metastases. This is increased in the left frontal parietal, right cerebellar, and right temporal regions since prior. No midline shift. Head CTA demonstrates no aneurysm or stenosis of the major intracranial arteries. Neck CTA demonstrates no stenosis of the major cervical arteries. The origins of the great vessels from the aortic arch are patent. No mass is noted within the visualized portions of the cervical soft tissues or lung apices. Left chest wall port with catheter tip extending into the left brachiocephalic vein. Impression: 1. Head CTA demonstrates no aneurysm or stenosis of the major intracranial arteries, 2. Neck CTA demonstrates no stenosis of the major cervical arteries. 3. Multifocal areas of edema in the brain have increased, relating to known metastatic disease. Similar small size of the ventricles with stable ventriculostomy in place. Electronically signed by Artem Henry 12-29-2024 4:42 PM Head CTA 12/29/24 14:[address] without contrast CT angiogram of the neck CT angiogram of the brain with contrast Provided History: Seizure Comparison: None Technique: HEAD CT: Using multidetector thin collimation helical acquisition technique, axial, coronal and sagittal CT images from the skull base to the vertex were obtained without intravenous contrast. HEAD and NECK CTA: During rapid bolus intravenous injection of nonionic contrast material, axial images were obtained using thin collimation multidetector helical technique from the base of the neck through the of vertex of the head. This CT angiogram data was reconstructed at thin intervals with mild overlap. 3D reconstructions were obtained. The axial source images, multiplanar reformations, 3D reconstructions in both maximum intensity projection display and volume rendered models were reviewed. Dose reduction techniques were achieved by using automatic exposure control and/or adjustment of mA and/or kV according to patient size and/or use of iterative reconstruction technique. Findings: Head CT: [place]/white matter differentiation in both cerebral hemispheres is preserved. Similar small appearance of the ventricles with stable right frontal approach ventriculostomy, with catheter tip near the foramen of [place]. Redemonstrated multifocal areas of edema in the brain related to known metastases. This is increased in the left frontal parietal, right cerebellar, and right temporal regions since prior. No midline shift. Head CTA demonstrates no aneurysm or stenosis of the major intracranial arteries. Neck CTA demonstrates no stenosis of the major cervical arteries. The origins of the great vessels from the aortic arch are patent. No mass is noted within the visualized portions of the cervical soft tissues or lung apices. Left chest wall port with catheter tip extending into the left brachiocephalic vein. Impression: 1. Head CTA demonstrates no aneurysm or stenosis of the major intracranial arteries, 2. Neck CTA demonstrates no stenosis of the major cervical arteries. 3. Multifocal areas of edema in the brain have increased, relating to known metastatic disease. Similar small size of the ventricles with stable ventriculostomy in place. Electronically signed by Artem Henry 12-29-2024 4:42 PM Neck CTA 12/29/24 14:[address] without contrast CT angiogram of the neck CT angiogram of the brain with contrast Provided History: Seizure Comparison: None Technique: HEAD CT: Using multidetector thin collimation helical acquisition technique, axial, coronal and sagittal CT images from the skull base to the vertex were obtained without intravenous contrast. HEAD and NECK CTA: During rapid bolus intravenous injection of nonionic contrast material, axial images were obtained using thin collimation multidetector helical technique from the base of the neck through the of vertex of the head. This CT angiogram data was reconstructed at thin intervals with mild overlap. 3D reconstructions were obtained. The axial source images, multiplanar reformations, 3D reconstructions in both maximum intensity projection display and volume rendered models were reviewed. Dose reduction techniques were achieved by using automatic exposure control and/or adjustment of mA and/or kV according to patient size and/or use of iterative reconstruction technique. Findings: Head CT: [place]/white matter differentiation in both cerebral hemispheres is preserved. Similar small appearance of the ventricles with stable right frontal approach ventriculostomy, with catheter tip near the foramen of [place]. Redemonstrated multifocal areas of edema in the brain related to known metastases. This is increased in the left frontal parietal, right cerebellar, and right temporal regions since prior. No midline shift. Head CTA demonstrates no aneurysm or stenosis of the major intracranial arteries. Neck CTA demonstrates no stenosis of the major cervical arteries. The origins of the great vessels from the aortic arch are patent. No mass is noted within the visualized portions of the cervical soft tissues or lung apices. Left chest wall port with catheter tip extending into the left brachiocephalic vein. Impression: 1. Head CTA demonstrates no aneurysm or stenosis of the major intracranial arteries, 2. Neck CTA demonstrates no stenosis of the major cervical arteries. 3. Multifocal areas of edema in the brain have increased, relating to known metastatic disease. Similar small size of the ventricles with stable ventriculostomy in place. Electronically signed by Artem Henry 12-29-2024 4:42 PM Discharge Plan Visit Data Chief Complaint: Seizure Stated Complaint: SEIZURE ED Provider: Christa Coats Discharge Problem: Seizure, Metastatic breast cancer, Metastasis to brain, Cerebral edema, Post- ictal confusion Patient Disposition: Admitted As Inpatient Condition: Fair Forms Stand Alone Forms: [facility] Prescriptions Prescriptions: No Action acetaminophen 325 mg tablet 325 mg PO Q4H PRN (Reason: Pain) ibuprofen [Advil] 200 mg Tablet 200 mg PO DIRECTED PRN (Reason: Pain) cholecalciferol (vitamin D3) [Vitamin D3] 50 mcg (2,000 unit) tablet 2,000 unit PO DAILY calcium carbonate [Calcium 600] 600 mg calcium (1,500 mg) Tablet 600 mg PO DAILY Referrals Referrals: Colby Medina MD [Primary Care Provider] -
[2024-12-29] MEDS: dexAMETHasone**PF** 10 MG/ML VIAL IV ONE (17:34)
[2024-12-29] MEDS: SODIUM CHLORIDE 0.9% 500 ML IV ONE (17:34)
--- NOTE | 2024-12-29 18:23 | History & Physical Report ---
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 Lasted about 30 minutes per her , was having right focal seizure across her face with shaking/jerking of her head. Was unable to talk during this episode. Denies any complaints by the patient prior to seizure onset, other than being recently more fatigued. She does have a history of a previous seizure, most recently 11/09/24. Prior to that, was under care at [facility] for seizure and hydrocephalus now s/p HEALTHCARE MANAGER shunt placement. Was on Keppra therapy for her seizures, however she stopped this medication herself. EMS on scene gave Ativan 2mg IV which did help her symptoms. On arrival to ED, patient was lethargic but arousable with right-sided facial paralysis. Moving all extremities equally w/ 5/5 strength and following commands. Re-evaluation by ED prior showing resolved facial paralysis. . Patient to be admitted to med/tele for seizure in the setting of metastatic cancer to the brain. #seizure/metastatic breast cancer to brain - CBC and CMP wnl. - CT head showing no acute intracranial bleed, increased edema related to metastatic disease and stable HEALTHCARE MANAGER shunt. CTA head and neck w/o aneurysm or stenosis of major intracranial and major cervical arteries. Hemodynamically stable and afebrile on ED arrival. Provider spoke with Dr. Key, on-call for [facility] neurology who suggested Decadron. Given decadron 10mg IV and Keppra load. - hx of seizure 2/2 metastatic cancer; previously on Keppra but patient d/c on her -As per recommendation of neurology, Decadron and keppra loading dose given in ED - continue dexamethasone 8mg IV q8h - continue keppra 500mg IV q12h - maintenance fluids with LR 60 ml/hr - zofran 4mg IV q6h prn - tylenol 1000mg IV q8h prn - neurology consulted, appreciate recommendations in the morning - consider oncology consult if needed in AM - seizure precautions - continue cardiac monitoring - NPO for now until patient more awake - CBC, CMP, Mg, qAM DVT: SCDs Dispo: med/tele History of Present Illness Chief Complaint: seizure Primary Care Provider: Colby Medina MD Padmaja Burris is a 39 y/o F pmhx invasive ductal carcinoma of the breast with metastatic disease to the brain presented to the ED this evening for evaluation of a witnessed seizure at home. Lasted about 30 minutes per her , was h aving right focal seizure across her face with shaking/jerking of her head. Was unable to talk during this episode. Denies any complaints by the patient prior to seizure onset, other than being recently more fatigued. She does have a history of a previous seizure, most recently 11/09/24. Prior to that, was under care at [facility] for seizure and hydrocephalus now s/p HEALTHCARE MANAGER shunt placement. Was on Keppra therapy for her seizures, however she stopped this medication herself. EMS on scene gave Ativan 2mg IV which did help her symptoms. On arrival to ED, patient was lethargic but arousable with right-sided facial paralysis. Moving all extremities equally w/ 5/5 strength and following commands. Re-evaluation by ED prior showing resolved facial paralysis. CBC and CMP wnl. CT head showing no acute intracranial bleed, increased edema related to metastatic disease and stable HEALTHCARE MANAGER shunt. CTA head and neck w/o aneurysm or stenosis of major intracranial and major cervical arteries. Hemodynamically stable and afebrile on ED arrival. Provider spoke with Dr. Key, on-call for [facility] neurology who suggested Decadron. Given decadron 10mg IV and Keppra load. Patient to be admitted to med/tele for seizure in the setting of metastatic cancer to the brain. Allergies Allergy/AdvReac Type Severity Reaction Status Date / Time heparin Allergy Unknown PT REFUSES Verified 12/29/24 16:37 PORK [employer]ODUCTS pork derived (porcine) Allergy Unknown ANABAPTISM Verified 12/29/24 16:37 [facility] Home Medications Medication Instructions Recorded Confirmed Type acetaminophen 325 mg tablet 325 mg PO Q4H PRN Pain 04/16/24 12/29/24 History cholecalciferol (vitamin D3) 50 2,000 unit PO DAILY 04/16/24 12/29/24 History mcg (2,000 unit) tablet (Vitamin D3) ibuprofen 200 mg tablet (Advil) 200 mg PO DIRECTED PRN Pain 04/16/24 12/29/24 History calcium carbonate (Calcium 600) 600 mg PO DAILY 12/29/24 12/29/24 History Past Med/Surg History Problem List (Updated 12/29/24 @ 19:13 by Artem Crowder MD) Seizure (Acute) Post-ictal confusion (Acute) Diffuse cerebral edema Ductal carcinoma in situ (DCIS) of right breast Breast cancer, stage 4 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 (Chronic) Metastasis to brain (Acute) Osteolytic lesion due to metastasis Expressive aphasia (Acute) Constipation HEALTHCARE MANAGER (ventriculoperitoneal) shunt status History of invasive ductal carcinoma of breast Cervical high risk human papillomavirus (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 positive ASCUS with positive high risk HPV Medical History (Updated 12/29/24 @ 19:13 by Artem Crowder MD) Breast cancer Brain metastases D&C performed at 8 weeks Surgical History (Updated 11/11/24 @ 08:05 by Janina Reyna) S/P HEALTHCARE MANAGER shunt History of brain shunt Port-A-Cath in place left chest history Leg fracture Ovarian cyst History of nasal surgery Family History Uncle Myocardial infarction Cancer Heart disease Denies family history of Ovarian cancer Prostate cancer Breast cancer Colorectal cancer Social History (System 11/11/24 @ 08:05 by Janina Reyna) Smoking Status: Never smoker Hx Alcohol Use: No Hx Substance Use: No Preferred Language: Hungarian Communication Ability: Effective Visual Impairment: No Limitations Hearing Ability: Normal Acute Care Physician Required: No Beliefs That Will Affect Care: None, Orthodoxy Orthodoxy Beliefs: Diet Mormonism restrictions. Comment entered and Cultural Cultural Beliefs: Mormonism, at side, No male care givers. marital status: Current Living Situation: Spouse current occupational status: student How many Children do You have: 0 Feels Safe at Home: Yes during the past year weight has: remained stable Assistive Devices: None Review of Systems Review of Systems: as per hpi Physical Exam Constitutional: WD/WN, vitals as above patient asleep upon entering room, comfortable appearing with equal rest and fall of chest. under multiple blankets. Eyes: PERRL, conjunctivae normal, anicteric sclerae Respiratory: normal respiratory effort; no respiratory distress, no labored breathing and does not use accessory muscles Cardiovascular: RRR, no murmur, no edema Gastrointestinal (Abdomen): Inspection/Auscultation: abdomen normal to inspection; abdomen not distended Percussion/Palpation: abdomen soft; abdomen nontender and no guarding Musculoskeletal: Head/Neck/Chest: normocephalic and head atraumatic Extremities: extremities normal to inspection; full ROM of extremities Skin: no rashes, warm and dry Neurologic: asleep, however easily arousable. Following commands, however does easily falls back asleep. Moving all extremities w/o limitation Results & Data Results & Data Vital Signs (Past 12 Hours) Vital Signs Temp Pulse Pulse Resp BP BP Pulse Ox 12/29/24 17:30 65 20 109/79 96 12/29/24 17:00 59 L 15 95/72 L 97 12/29/24 16:30 67 16 112/80 98 12/29/24 16:12 66 15 108/75 100 12/29/24 16:00 62 15 108/75 100 12/29/24 15:21 63 16 99/72 L 97 12/29/24 15:00 76 22 114/85 99 12/29/24 14:45 70 12/29/24 14:31 84 15 106/73 98 12/29/24 14:31 98 12/29/24 14:31 36.8 C 84 15 106/73 98 O2 Del Method 12/29/24 17:30 Room Air 12/29/24 17:00 Room Air 12/29/24 16:30 Room Air 12/29/24 16:12 Room Air 12/29/24 16:00 Room Air 12/29/24 15:21 Room Air 12/29/24 15:00 Room Air 12/29/24 14:45 12/29/24 14:31 Room Air 12/29/24 14:31 Room Air 12/29/24 14:31 Room Air Supervising Physician Co-Signing Physician Notes Attending attestation Pt seen and examined in concert with Dr. Andrade. In agreement with the documented findings as noted in the resident documentation with any exceptions or additions as noted here. Somnolent but wakes to voice or light touch in the room without present complaint of pain, headache. Difficulty performing orientation tasks due to somnolence in post-ictal state, recent lorazepam administration and keppra load. Spouse at bedside with supportive history as noted in HPI. Reviewed code status: FULL code and spouse advocates as healthcare decision proxy without available documentation. VS as noted. On examination, S1/S2 nl RRR no MCG. CTAB. Abd NT/ND BS+ve CNII-XII grossly intact with limited testing due to somnolence. WBC 4.48 Hgb 13.3 Na 138 Cr 0.49 Seizure disorder in the setting of breast cancer with metastatic disease to brain - neurology consultation - [place] [facility] [place], self discontinued Keppra due to sedation and feeling better following last admission. s/p Keppra load and no adverse effects resulting in cessation so will restart maintenance dose prior to neurology evaluation. Continue dexamethasone 8mg q8h. Seizure precautions. Telemetry monitoring. Consider oncology consultation in AM. Else see resident documentation as noted.
[2024-12-29] MEDS ORDERED: MELATONIN 3 MG TAB PO PRN (20:28)
[2024-12-29] MEDS ORDERED: ACETAMINOPHEN 1,000 MG/100 ML VIAL IV PRN (20:28)
[2024-12-29] MEDS ORDERED: POLYETHYLENE (MIRALAX) 17 GM PACK PO PRN (20:28)
[2024-12-29] MEDS: LACTATED RINGER'S 1,000 ML IV SCH (20:54)
--- NOTE | 2024-12-29 21:37 | Electrocardiogram Report ---
Test Reason : Blood Pressure : */* mmHG Vent. Rate : 87 BPM Atrial Rate : 87 BPM P-R Int : 150 ms QRS Dur : 76 ms QT Int : 366 ms P-R-T Axes : 71 -23 64 degrees QTcB Int : 440 ms Normal sinus rhythm Low voltage QRS Inferior infarct , age undetermined Abnormal ECG When compared with ECG of 23-Jul-2022 18:40, Inferior infarct is now Present Confirmed by Fabian Schmid ([id number]) on 12/29/2024 9:36:56 PM Referred By: Confirmed By: Fabian Schmid
[2024-12-30] MEDS: dexAMETHasone 8 MG in SYRINGE 0 ML IV SCH (00:32)
[2024-12-30] MEDS ORDERED: DEXAMETHASONE SOD INJ 4 MG/ML VIAL IV SCH (01:00)
[2024-12-30 05:59] LABS: Hematocrit (blood only) 37.2 % (37.0-47.0); Hemoglobin 13.0 g/dL (12.0-16.0); Mean Corpuscular Hemoglobin 30.6 pg (25.0-34.0); Mean Corpuscular Volume 87.5 fL (80.0-100.0); Platelet Count 217 K/uL (130-400); RDW Standard Deviation 39.8 fL (36.4-46.3); Red Blood Count 4.25 M/uL (4.20-5.40); White Blood Count 6.20 K/ul (4.8-10.8)
[2024-12-30 06:20] LABS: Immature Granulocytes # (auto) 0.02 K/uL (0.01-0.20); Immature Granulocytes % (auto) 0.3 %
[2024-12-30 06:24] LABS: Alanine Aminotransferase 8.0 U/L (7-52); Albumin Globulin Ratio 1.7 (0.9-2); Albumin Level 4.0 gm/dl (3.4-5.0); Alkaline Phosphatase 36.0 U/L (34-104); Anion Gap 6.0 (3-11); Bilirubin,Total 0.6 mg/dl (0.2-1.0); Blood Urea Nitrogen 12.0 mg/dl (6-23); Calcium 8.5 mg/dl (8.6-10.3); Carbon Dioxide 25.0 mmol/L (21-32); Chloride 106.0 mmol/L (98-107); Creatinine Clr Calc Pharmacy 161.2 ml/min; Globulin 2.4 gm/dl (2.5-4.0); Glucose 126.0 mg/dl (70-99(Fasting)); Magnesium 1.7 mg/dl (1.7-2.4); Potassium 3.9 mmol/L (3.5-5.1); Sodium 137.0 mmol/L (136-145); Total Protein 6.4 gm/dl (6.0-8.3)
[2024-12-30] MEDS: ONDANSETRON INJ 2 MG/ML 2 ML VIAL IV PRN (06:54)
--- NOTE | 2024-12-30 08:35 | Hospitalist Progress Note ---
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 Lasted about 30 minutes per her , was having right focal seizure across her face with shaking/jerking of her head. Was unable to talk during this episode. Denies any complaints by the patient prior to seizure onset, other than being recently more fatigued. She does have a history of a previous seizure, most recently 11/09/24. Prior to that, was under care at [facility] for seizure and hydrocephalus now s/p GAUGE AND WEIGH MACHINE OPERATOR shunt placement. Was on Keppra therapy for her seizures, however she stopped this medication herself. EMS on scene gave Ativan 2mg IV which did help her symptoms. On arrival to ED, patient was lethargic but arousable with right-sided facial paralysis. Moving all extremities equally w/ 5/5 strength and following commands. Re-evaluation by ED prior showing resolved facial paralysis. . Patient to be admitted to med/tele for seizure in the setting of metastatic cancer to the brain. #seizure - has previous seizure history due to metastatic disease. s/p GAUGE AND WEIGH MACHINE OPERATOR shunt for hydrocephalus. Following with [facility] neurology - Dr. Tavarez. Previously on Keppra as prescribed by neurologist, however d/c on her own - CBC and CMP wnl this morning. - CT head showing no acute intracranial bleed, increased edema related to metastatic disease and stable GAUGE AND WEIGH MACHINE OPERATOR shunt. CTA head and neck w/o aneurysm or stenosis of major intracranial and major cervical arteries. Hemodynamically stable and afebrile on ED arrival. Given decadron 10mg IV and Keppra load while in ED per recommendation of neurologist admissions consultant for Dr. Yesi Nunez. - not having muscle aches and kidney function stable - no concern for rhabdo at this point, however will continue to monitor with serial labs. - continue dexamethasone 8mg IV q8h - continue keppra 500mg IV q12h - maintenance fluids with LR 60 ml/hr - zofran 4mg IV q6h prn - tylenol 1000mg IV q8h prn - neurology consulted, appreciate recommendations in the morning - seizure precautions - continue cardiac monitoring - NPO for now until patient more awake - CBC, CMP, Mg, qAM #invasive ductal carcinoma of the breast - diagnosed in 03/2021; Previously received palliative radiation therapy in April 2021 when first diagnosed. Did have whole brain radiation therapy for metastatic disease 04/2024. Some response to treatment shown with repeat MRIs however still having complications due to vasogenic edema i.e. seizures, as above. - following with Dr. Coats w/ Rad-Onc, most recent visit 12/05/24 DVT: SCDs Dispo: med/tele, can consider potential d/c pending neurology recommendations Admission and Anticipated Discharge Date Admission Date: December 29, 2024 Supervising Physician Co-Signing Physician Notes I personally examined the patient and verified all esposito points of history and exam, discussed case, and agree with decision making with Dr Andrade Feeling better. Feeling more like herself. Stopped Keppra largely just because she did not feel like she needed it, also notes that they were fairly large pills and wonders if she would do better with the liquid. On multiple lines of questioning she denies any notable side effects to the medication itself. Vitals noted, in general she is awake and alert pleasant no distress. HEENT normocephalic atraumatic mucous membranes moist. She is thin and frail appearing. Breathing unlabored no accessory muscle use good effort. Skin without rashes pallor or icterus. Seizure disorder in the setting of breast cancer with metastatic disease to brain and progressive metastatic breast cancerseizure has been aborted. Back on Keppra. Does not sound like she had any significant side effects. Await neurology input, but discussed with patient that probably going back on Keppra makes the most sense Else see resident documentation as noted. Subjective Patient seen and examined at bedside. Patient's in room. She is more alert, awake, and no acute distress. States she is feeling well and denies any pain. Tolerating PO w/o concern. Review of Systems Review of Systems: as per hpi Physical Exam Physical Exam: patient A&Ox4 this morning. Resting in bed comfortably, no acute distress. Constitutional: WD/WN, vitals as above Eyes: PERRL, conjunctivae normal, anicteric sclerae Respiratory: normal respiratory effort; no respiratory distress, no labored breathing and does not use accessory muscles Cardiovascular: RRR, no murmur, no edema Gastrointestinal (Abdomen): Inspection/Auscultation: abdomen normal to inspection; abdomen not distended Percussion/Palpation: abdomen soft; abdomen nontender and no guarding Musculoskeletal: Head/Neck/Chest: normocephalic and head atraumatic Extremities: extremities normal to inspection; full ROM of extremities Skin: no rashes, warm and dry Neurologic: resolve of right facial paralysis. Moving all limbs w/o restriction. Following commands. No focal neurologic deficits Results & Data Results & Data Vital Signs (Past 12 Hours) Vital Signs Temp Pulse Pulse Resp BP BP Pulse Ox 12/30/24 07:47 95 H 12/30/24 07:44 36.7 C 80 24 94/70 L 97 12/30/24 03:04 67 17 93/68 L 96 12/30/24 00:12 66 16 91/57 L 95 12/29/24 22:13 66 O2 Del Method 12/30/24 07:47 12/30/24 07:44 Room Air 12/30/24 03:04 Room Air 12/30/24 00:12 Room Air 12/29/24 22:13
--- NOTE | 2024-12-30 18:49 | Billing Data ---
Date of Service December 30, 2024 Coding Level of Care Code 05653 SUB INP/OBS CARE MIN
[2024-12-31 06:41] LABS: Hematocrit (blood only) 35.1 % (37.0-47.0); Hemoglobin 12.3 g/dL (12.0-16.0); Mean Corpuscular Hemoglobin 31.1 pg (25.0-34.0); Mean Corpuscular Volume 88.6 fL (80.0-100.0); Platelet Count 226 K/uL (130-400); RDW Standard Deviation 40.7 fL (36.4-46.3); Red Blood Count 3.96 M/uL (4.20-5.40); White Blood Count 11.67 K/ul (4.8-10.8)
[2024-12-31 07:12] LABS: Anion Gap 8.0 (3-11); Blood Urea Nitrogen 14.0 mg/dl (6-23); Calcium 8.6 mg/dl (8.6-10.3); Carbon Dioxide 25.0 mmol/L (21-32); Chloride 107.0 mmol/L (98-107); Creatinine Clr Calc Pharmacy 135.9 ml/min; Glucose 126.0 mg/dl (70-99(Fasting)); Magnesium 1.8 mg/dl (1.7-2.4); Potassium 4.0 mmol/L (3.5-5.1); Sodium 140.0 mmol/L (136-145)
[2024-12-31 08:11] VITALS: TEMP 98.2
--- NOTE | 2024-12-31 09:35 | Discharge Summary ---
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 Lasted about 30 minutes per her , was having right focal seizure across her face with shaking/jerking of her head. Was unable to talk during this episode. Denies any complaints by the patient prior to seizure onset, other than being recently more fatigued. She does have a history of a previous seizure, most recently 11/09/24. Prior to that, was under care at [facility] for seizure and hydrocephalus now s/p SENIOR SOFTWARE DEVELOPER shunt placement. Was on Keppra therapy for her seizures, however she stopped this medication herself. EMS on scene gave Ativan 2mg IV which did help her symptoms. On arrival to ED, patient was lethargic but arousable with right-sided facial paralysis. Moving all extremities equally w/ 5/5 strength and following commands. Re-evaluation by ED prior showing resolved facial paralysis. CBC and CMP wnl. CT head showing no acute intracranial bleed, increased edema related to metastatic disease and stable SENIOR SOFTWARE DEVELOPER shunt. CTA head and neck w/o aneurysm or stenosis of major intracranial and major cervical arteries. Hemodynamically stable and afebrile on ED arrival. Provider spoke with Dr. Key, on-call for [facility] neurology who suggested Decadron. Given decadron 10mg IV and Keppra load. Patient to be admitted to [facility] for seizure in the setting of metastatic cancer to the brain. Admission Exam Per Admitting Provider Constitutional: WD/WN, vitals as above patient asleep upon entering room, comfortable appearing with equal rest and fall of chest. under multiple blankets. Eyes: PERRL, conjunctivae normal, anicteric sclerae Respiratory: normal respiratory effort; no respiratory distress, no labored breathing and does not use accessory muscles Cardiovascular: RRR, no murmur, no edema Gastrointestinal (Abdomen): Inspection/Auscultation: abdomen normal to inspection; abdomen not distended Percussion/Palpation: abdomen soft; abdomen nontender and no guarding Musculoskeletal: Head/Neck/Chest: normocephalic and head atraumatic Extremities: extremities normal to inspection; full ROM of extremities Skin: no rashes, warm and dry Neurologic: asleep, however easily arousable. Following commands, however does easily falls back asleep. Moving all extremities w/o limitation Principal Diagnosis seizure in the setting metastatic disease to the brain Discharge Exam patient A&Ox4 this morning. Resting in bed comfortably, no acute distress. Constitutional WD/WN, vitals as above Eyes PERRL, conjunctivae normal, anicteric sclerae Respiratory normal respiratory effort; no respiratory distress, no labored breathing and does not use accessory muscles Cardiovascular RRR, no murmur, no edema Gastrointestinal (Abdomen) Inspection/Auscultation: abdomen normal to inspection; abdomen not distended Percussion/Palpation: abdomen soft; abdomen nontender and no guarding Musculoskeletal Head/Neck/Chest: normocephalic and head atraumatic Extremities: extremities normal to inspection; full ROM of extremities Skin no rashes, warm and dry Discharge Data Allergies Allergy/AdvReac Type Severity Reaction Status Date / Time heparin Allergy Unknown PT REFUSES Verified 12/29/24 16:37 PORK PRODUCTS pork derived (porcine) Allergy Unknown BUDDHISM Verified 12/29/24 16:37 [facility] Consultations 12/29/24 17:45 ED Decision to Admit Stat 12/29/24 20:28 Consult Neurology Routine Ordered Studies 12/29/24 14:52 CT head/brain wo con Stat 12/29/24 14:55 CTA head w con [CT angio head w con] Stat CTA neck with con [CT angio neck with con] Stat Hospital Course (1) Seizure: (2) Post-ictal confusion: (3) Diffuse cerebral edema: (4) Ductal carcinoma in situ (DCIS) of right breast: (5) 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 She does have a history of a previous seizure, most recently 11/09/24. Prior to that, was under care at [facility] for seizure and hydrocephalus now s/p SENIOR SOFTWARE DEVELOPER shunt placement. Was on Keppra therapy for her seizures, however she stopped this medication herself. EMS on scene gave Ativan 2mg IV which did help her symptoms. On arrival to ED, patient was lethargic but arousable with right-sided facial paralysis. Moving all extremities equally w/ 5/5 strength and following commands. Re-evaluation by ED prior showing resolved facial paralysis. Patient to be admitted to med/tele for seizure in the setting of metastatic cancer to the brain. #seizure - has previous seizure history due to metastatic disease s/p SENIOR SOFTWARE DEVELOPER shunt for hydrocephalus. Following with [facility] - Dr. Tavarez. Previously on Keppra as prescribed by neurologist, however d/c on her own - CT head showing no acute intracranial bleed, increased edema related to metastatic disease and stable SENIOR SOFTWARE DEVELOPER shunt. CTA head and neck w/o aneurysm or stenosis of major intracranial and major cervical arteries. Hemodynamically stable and afebrile on ED arrival. Given decadron 10mg IV and Keppra load while in ED per recommendation of neurologist grain operations manager for Dr. Yesi Nunez. - this morning, feeling well, denies having muscle aches, chest pain, headache, dizziness. CBC and BMP wnl. - managed with dexamethasone 8mg IV q8h and keppra 500mg IV q12h -- will like to transition this to oral on discharge. Discussed with patient the importance of continuing Keppra for seizure prevention - supportive care: - maintenance fluids with LR 60 ml/hr - zofran 4mg IV q6h prn - tylenol 1000mg IV q8h prn - seizure precautions - cardiac monitoring without actionable events - NSR HR 60s #invasive ductal carcinoma of the breast - diagnosed in 03/2021; Previously received palliative radiation therapy in April 2021 when first diagnosed. Did have whole brain radiation therapy for metastatic disease 04/2024. Some response to treatment shown with repeat MRIs however still having complications due to vasogenic edema i.e. seizures, as above. - following with Dr. Coats w/ Rad-Onc, most recent visit 12/05/24 DVT: SCDs Dispo: home discharge today Total Time Total Time Spent Total Time Spent (In Minutes): <30 Discharge Plan Discharge Items Patient Disposition: Home - Self-Care Reason For Visit: SEIZURE Discharge Diagnosis: seizure Condition on Discharge: Fair Activity: Resume your previous activity Non-emergency contact: Primary Care Provider and Neurologist Call non-emergency contact if: you have any medication questions and your symptoms worsen Follow-up/Referrals: Colby Medina MD [Primary Care Provider] - Diet: Regular Addtl Attending Provider Instructions: You were admitted to [facility] for treatment of a seizure. You were treated with IV steroids, fluids, and anti-seizure medication (Keppra). CT imaging of your head showed increased edema related to your known metastatic disease. Your previously placed SENIOR SOFTWARE DEVELOPER shunt is stable and in place. There was no stenosis or aneurysm of the major arteries of the head and neck. On discharge, please continue Keppra 500mg by mouth twice daily for prevention of repeat seizures. You will also be on a steroid for Please follow-up with your PCP and Neurologist within 1-2 weeks of discharge. Medications: NEW: levetiracetam 5mL by mouth two times daily dexamethasone taper: - take 8mg (2 tablets) 3 times a day for 7 days - take 6mg (1 1/2 tablets) 3 times a day for 3 days - take 4mg (1 tablet) 3 times a day for 3 days - take 2mg (1/2 tablet) 3 times a day for 3 days PLEASE follow-up with your Radiation Oncologist for continued steroid taper management. Continue all other home medications as prescribed. Pending Studies at Discharge: No Stand-Alone Forms: My [facility], Smoking Cessation Medications and DC Order Prescriptions: New levetiracetam [Keppra] 100 mg/mL solution 500 mg PO BID 30 Days Qty: 300 0RF dexamethasone 4 mg tablet 8 mg PO DAILY Qty: 69 0RF Rx Instructions: Taper: - take 8mg (2 tablets) 3 times a day for 7 days - take 6mg (1 1/2 tablets) 3 times a day for 3 days - take 4mg (1 tablet) 3 times a day for 3 days - take 2mg (1/2 tablet) 3 times a day for 3 days Continued acetaminophen 325 mg tablet 325 mg PO Q4H PRN (Reason: Pain) ibuprofen [Advil] 200 mg Tablet 200 mg PO DIRECTED PRN (Reason: Pain) cholecalciferol (vitamin D3) [Vitamin D3] 50 mcg (2,000 unit) tablet 2,000 unit PO DAILY calcium carbonate [Calcium 600] 600 mg calcium (1,500 mg) Tablet 600 mg PO DAILY Discharge Orders: Discharge Order (Routine); Ordered 12/31/24 Ordered By: Shawna Andrade Admission Data Admit Date/Time: 12/29/24 19:07 Attending Provider: Alex Rosa Admit Provider: Shawna Andrade Primary Care Provider: Colby Medina Other Providers: Artem Crowder; Jose Key Other Interventions: Discharge Summary Assessment (RN) Last Done: 12/31/24 13:23 Supervising Physician Co-Signing Physician Notes I personally examined the patient and verified all esposito points of history and exam, discussed case, and agree with decision making with Dr Andrade feels good and would like to go home. Discussed that it appears the neurology consult was called to the overnight coverage group, and therefore the in-house group was not informed, offered options of waiting for neuro to see her this afternoon versus outpatient follow-up, and she preferred outpatient follow-up (with which I concur). Vitals noted, in general she is awake and alert pleasant no distress. HEENT normocephalic atraumatic mucous membranes moist. She is th in and frail appearing. Breathing unlabored no accessory muscle use good effort. Skin without rashes pallor or icterus. Seizure disorder in the setting of breast cancer with metastatic disease to b rain and progressive metastatic breast cancerseizure has been aborted. Back on Keppra. Does not sound like she had any significant side effects. home on [facility], outpatient neuro follow-up. Else see resident documentation as noted. Resident Activity Tracking Resident Involvement: Resident Care Provided Care Provided: Adult Hospital Medicine
[2024-12-31 10:24] VITALS: BP 97/68; PULSE 73; RESP 24; O2SAT 97
--- NOTE | 2024-12-31 19:02 | Billing Data ---
Date of Service December 31, 2024 Coding Level of Care Code 07867 IN/OBS DISCH 30 MIN/LESS
== END 2024-12-31 14:17 | disposition home or self-care (01) | DRG 100 ==
LOC: ED 14:14 → 2E 19:07 → SUATTDRO 19:07 → 2E 19:48